=== PATIENT | female | born 1965 | race Caucasian/White ===

== ENCOUNTER 2024-06-11 15:09 | Inpatient (IN) ==
--- NOTE | 2024-06-11 15:56 | XRay Report ---
XR chest 1V portable HISTORY: 59 years-old Female Weakness COMPARISON: Chest radiograph 12/04/2023 TECHNIQUE: AP view of the chest FINDINGS: Cardiac silhouette is enlarged. Right IJ Bkzdkc-e-Memz catheter. Mild right hemidiaphragmatic elevati on. No pneumothorax, large pleural effusion or overt pulmonary edema. Right hilar mass redemonstrated . Bones appear grossly intact. IMPRESSION: 1. No acute processes of the chest. 2. Right hilar mass redemonstrated. ACT 112: Negative or not required by law. The above report was generated using voice recognition software. It may contain grammatical, syntax o r spelling errors. Electronically signed by: Ari Black M.D. 06/11/2024 3:54 PM
[2024-06-11 15:57] LABS: Basophils # (auto) 0.01 K/uL (0.00-0.20); Basophils % (auto) 0.1 %; Hematocrit (blood only) 41.5 % (37.0-47.0); Hemoglobin 14.5 g/dl (12.0-16.0); Immature Granulocytes # (auto) 0.03 K/uL (0.01-0.20); Immature Granulocytes % (auto) 0.3 %; Lymphocytes # (auto) 1.63 K/uL (1.20-3.40); Lymphocytes % (auto) 16.5 %; Mean Corpuscular Hemoglobin 31.4 pg (25.0-34.0); Mean Corpuscular Hgb Conc 34.9 g/dL (32.0-36.0); Mean Corpuscular Volume 89.8 fL (80.0-100.0); Mean Platelet Volume 8.7 fL (9.4-12.4); Monocytes # (auto) 0.39 K/uL (0.11-0.59); Neutrophils # (auto) 7.79 K/uL (1.40-6.50); Neutrophils % (auto) 79.1 %; Platelet Count 233 K/uL (130-400); RDW Coefficient of Variation 13.6 % (11.5-14.5); RDW Standard Deviation 44.6 fL (36.4-46.3); Red Blood Count 4.62 M/uL (4.20-5.40); White Blood Count 9.85 K/ul (4.8-10.8)
--- NOTE | 2024-06-11 16:06 | Emergency Department Note ---
Impression & Plan Generalized weakness, Acute hypokalemia, Hypomagnesemia, Acute hyponatremia, Acute UTI (urinary tract infection), Acute urinary retention, Elevated procalcitonin ED Provider Note HISTORY OF PRESENT ILLNESS: Patient is a 59-year-old female presenting with generalized weakness. Patient reports that she has been having progressively worsening weakness of her bilateral lower extremities for the last week. Reports that 3 days ago she started having multiple episodes of vomiting. States that she has had poor oral intake in the last 72 hours. Denies any measured fevers, but does report that she has had night sweats in the last 3 days. Denies any abdominal pain. Denies any dysuria or hematuria. She had a follow-up appointment with her first coat sander and had some basic blood work done and was referred to the emergency department due to multiple electrolyte abnormalities. Patient denies any chest pain or shortness of breath. She reports feeling very rundown and weak. Denies any recent falls or head injuries. Denies any chiropractic manipulation of her neck. Denies any numbness or tingling down her legs. Reports that she has been so weak she has been unable to stand up and get around. She denies any bowel or bladder incontinence. ROS: as above PHYSICAL EXAM: Constitutional: Patient appears in no acute distress. HENT: Head: Normocephalic and atraumatic. Eyes: EOMI, PERRL Mouth/Throat: Mucous membranes moist. Neck: Trachea midline. Neck supple. Cardiovascular: Tachycardic with regular rhythm. No murmurs, rubs or gallops. Intact distal pulses. Pulmonary/Chest: No respiratory distress. Breath sounds clear and equal bilaterally. No wheezes or rales. No chest wall tenderness to palpation. Abdominal: Abdomen soft, no tenderness, rebound or guarding. Musculoskeletal: No edema, tenderness or deformity noted. Skin: Warm and dry. No rash, erythema, pallor or cyanosis Psychiatric: Appropriate mood and affect for situation. Neurological: Alert and keenly responsive. CN II-XII grossly intact. Patient is able to straight leg raise bilaterally but after lifting her legs shortly places them back on the bed saying that she is weak and fatigued. Sensation intact to light touch about the nerve distributions of the legs. MDM: - Vitals signs showed hypertension and tachycardia - History obtained via patient. History as above. - Chronic conditions affecting care: HLD; small cell lung cancer; hypothyroidism; rheumatoid arthritis - Differential diagnoses include, but are not limited to: pneumonia; viral syndrome; UTI; small bowel obstruction; electrolyte abnormality - Order placed for continuous cardiac monitoring. At this time, monitor showed rate of 98 bpm with normal sinus rhythm, per my interpretation. - External medical records reviewed. [facility] nursing note dated 06/11/2024 was reviewed. Patient reportedly presented for an education visit. However, when patient was being brought back to an exam room she stated that her legs were too weak and she required to nursing assist to get out of the waiting room chair. She has been using her father's walker to ambulate per their documentation. She was noted to be hypertensive with blood pressure readings of 188/115 and 182/104. She had a sodium of 127 and potassium 3.1. They were referred to the emergency department for further evaluation. - EKG interpreted by myself showed normal sinus rhythm. Rate 98 bpm. QT 358. No acute ischemic changes. - Laboratory workup interpreted by myself showed normal WBC; normal PT/INR; hyponatremia (Na 126); hypokalemia (K 2.9); hypercalcemia (Ca 10.4); hypomagnesemia (Mg 1.5); elevated procalcitonin (0.98); normal lactate; elevated TSH (5.788) - CXR negative for pneumonia, per my interpretation. Noted to have a right hilar mass. - Blood cultures obtained - UA showed evidence of infection. Patient given 2 g IV Rocephin. - Viral respiratory panel negative - CT abdomen/pelvis with IV contrast multiple indeterminate hepatic lesions. Also noted to have multiple areas of infectious bronchiolitis. Urinary bladder is dilated with mild prominence of the ureters and renal pelves - Patient given 1L NS. Given a total of 30 mEq IV potassium for electrolyte replacement. Given 1g IV magnesium - Patient noted to have a significantly distended bladder on CT scan. She has bladder scanned for around 900 by nursing staff. Patient ambulated into the bathroom without any assistive devices. She voided about 150 cc on repeat bladder scan showing around low 800 cc of urine. Discussed urinary retention with the patient and recommended placing a Zavala catheter, to which he was agreeable. - Unclear etiology for patient's urinary retention at this time. However, may be secondary to her acute UTI. She did ambulate in the emergency department without any profound gait instability. Her CT imaging did not mention any acute spinal abnormality, but further imaging may be warranted on the inpatient setting. - Discussion was had with case technician about patient's case and need for admission - Hospitalist, Dr. Dallas, consulted for admission - Patient admitted to [facility] Pediatric Hospitalist service for further evaluation and management. I have personally spent 34 minutes of critical care time in the direct management of this patient. This includes bedside care, interpretation of diagnostic studies, and testing, discussion with consultants, patient, and family members, and other required patient management activities. This 34 minutes is in excess of all separately billable procedures. ASSESSMENT AND PLAN: Diagnosis: generalized weakness; acute hypokalemia; hypomagnesemia; acute hyponatremia; acute UTI; acute urinary retention; elevated procalcitonin Plan: Admit Past Med/Surg History Problem List (Updated 06/11/24 @ 20:02 by Puja Doran MD) Elevated procalcitonin (Acute) Acute urinary retention (Acute) Acute UTI (urinary tract infection) (Acute) Acute hyponatremia (Acute) Hypomagnesemia (Acute) Acute hypokalemia (Acute) Generalized weakness (Acute) Small cell lung cancer, right upper lobe (Chronic) Mixed dyslipidemia Medical History (Updated 06/11/24 @ 20:02 by Puja Doran MD) Kidney stone Prediabetes Black hairy tongue Lung cancer Diagnosed 12/04/23;Small cell lung cancer, right Thyroid goiter Ovarian cyst Hypothyroidism Rheumatoid arthritis Allergic rhinitis Surgical History (Updated 12/23/23 @ 10:13 by Alise Hunter, NORM) Status post bronchoscopy 12/04/23 Hx of cholecystectomy History of surgery Excision left breast lesion - benign Family History (Updated 12/23/23 @ 13:23 by Alise Hunter, RN) Mother , 69yo Stroke Hypertension Diabetes Father Pacemaker Hypertension Diabetes Brother Diabetes Hypertension Son MVA (motor vehicle accident) Social History (Updated 12/23/23 @ 13:25 by Alise Hunter, NORM) Smoking Status: Current every day smoker Tobacco Type: E-cigarettes / Vaping Cigarettes Per Day: 1 PPD x 40yrs; Second Hand Exposure: No; Hx Alcohol Use: No Hx Substance Use: No Preferred Language: Namibian Communication Ability: Effective Visual Impairment: No Limitations Hearing Ability: Normal Assessment Nurse Required: No Beliefs That Will Affect Care: None marital status: Current Living Situation: Spouse current occupational status: employed 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 How many Children do You have: 0 Feels Safe at Home: Yes Diet: regular caffeine: Yes (3 cups/day) during the past year weight has: remained stable Allergies Allergies Allergy/AdvReac Type Severity Reaction Status Date / Time Sulfa (Sulfonamide Allergy Mild Nausea Verified 12/23/23 10:19 Antibiotics) codeine AdvReac sleepy Verified 12/23/23 10:19 PCN Allergy Severe Hives/swell Uncoded 12/23/23 10:19 ing Clindamycin Allergy Intermediate Hives Uncoded 12/23/23 10:19 Home Meds Home Medications Medication Instructions Recorded Confirmed azelastine 137 mcg (0.1 %) nasal 1 spray intranasal BID 12/23/23 12/23/23 spray levothyroxine 100 mcg capsule 100 mcg PO DAILY 12/23/23 12/23/23 multivitamin 1 tab PO DAILY 12/23/23 12/23/23 omega-3 fatty acids 1,000 mg 1,000 mg PO DAILY 12/23/23 12/23/23 capsule prochlorperazine maleate 10 mg 10 mg PO Q6H PRN 12/23/23 12/23/23 tablet (Compazine) triamcinolone acetonide 55 mcg 1 spray intranasal DAILY 12/23/23 12/23/23 nasal spray aerosol (Nasacort Allergy) Results & Data (ED) Vital Signs Vital Signs - 24 hr 06/11/24 15:18 06/11/24 16:42 06/11/24 16:47 Temperature 36.5 C Temperature Source Axillary Pulse Rate 100 H 92 H 90 Pulse Rate [Apical] Pulse Rhythm Regular Pulse Rhythm [Apical] Pulse Strength [Apical] Respiratory Rate 17 18 Respiratory Effort / Characteristics Non-Labored Spontaneous Respiratory Depth Normal Respiratory Pattern Blood Pressure 195/104 H Blood Pressure [Left Arm] Blood Pressure Mean 134 Blood Pressure Mean [Left Arm] Blood Pressure Position Sitting Blood Pressure Position [Left Arm] Pulse Oximetry 97 97 Oxygen Delivery Method Room Air Room Air Sepsis Recent Fever Within 48 Hours No Sepsis New/Unexplained Change in Mental Status N/A Sepsis Action Taken by Nursing No Action Required 06/11/24 16:47 06/11/24 19:12 06/11/24 19:13 Temperature Temperature Source Pulse Rate Pulse Rate [Apical] 92 H 98 H Pulse Rhythm Pulse Rhythm [Apical] Regular Pulse Strength [Apical] Normal Normal Respiratory Rate 18 17 Respiratory Effort / Characteristics Non-Labored Spontaneous Non-Labored Respiratory Depth Normal Normal Respiratory Pattern Regular Regular Blood Pressure Blood Pressure [Left Arm] 213/105 H 179/106 H Blood Pressure Mean Blood Pressure Mean [Left Arm] 141 130 Blood Pressure Position Blood Pressure Position [Left Arm] Sitting Pulse Oximetry 97 92 92 Oxygen Delivery Method Room Air Room Air Room Air Sepsis Recent Fever Within 48 Hours Sepsis New/Unexplained Change in Mental Status Sepsis Action Taken by Nursing Laboratory Data 06/11/24 Unknown 06/11/24 Unknown Lab Results 06/11/24 06/11/24 06/11/24 Range/Units 16:13 17:07 Unknown WBC 9.85 (4.8-10.8) K/ul RBC 4.62 (4.20-5.40) M/uL Hgb 14.5 (12.0-16.0) g/dl Hct 41.5 (37.0-47.0) % MCV 89.8 (80.0-100.0) fL MCH 31.4 (25.0-34.0) pg MCHC 34.9 (32.0-36.0) g/dL RDW Std Deviation 44.6 (36.4-46.3) fL RDW Coeff of Fifi 13.6 (11.5-14.5) % Plt Count 233 (130-400) K/uL MPV 8.7 L (9.4-12.4) fL Immature Gran % (Auto) 0.3 % Neut % (Auto) 79.1 % Lymph % (Auto) 16.5 % Jackson % (Auto) 4.0 % Eos % (Auto) 0.0 % Baso % (Auto) 0.1 % Neut # (Auto) 7.79 H (1.40-6.50) K/uL Lymph # (Auto) 1.63 (1.20-3.40) K/uL Jackson # (Auto) 0.39 (0.11-0.59) K/uL Eos # (Auto) 0.00 (0.00-0.50) K/uL Baso # (Auto) 0.01 (0.00-0.20) K/uL Immature Gran # (Auto) 0.03 (0.01-0.20) K/uL PT 10.7 (9.0-12.0) Seconds INR 1.0 (0.9-1.1) APTT 22 (21-31) Seconds PTT Ratio 0.8 Sodium 126 L (136-145) mmol/L Potassium 2.9 L (3.5-5.1) mmol/L Chloride 85 L (98-107) mmol/L Carbon Dioxide 30 (21-32) mmol/L Anion Gap 11 (3-11) BUN 13 (6-23) mg/dl Creatinine 0.70 (0.6-1.2) mg/dl Est Cr Clr Drug Dosing Not Reportable eGFR 100.81 BUN/Creatinine Ratio 18.6 (10-20) Glucose 169 H (70-99(Fasting)) mg/dl Lactate 1.3 1.2 (0.4-2.0) mmol/L Calcium 10.4 H (8.6-10.3) mg/dl Magnesium 1.5 L (1.7-2.4) mg/dl Total Bilirubin 0.7 (0.2-1.0) mg/dl AST 31 (13-39) U/L ALT 34 (7-52) U/L Alkaline Phosphatase 77 (34-104) U/L Troponin I High Sens 12.4 (0-14) pg/ml Total Protein 8.7 H (6.0-8.3) gm/dl Albumin 4.6 (3.4-5.0) gm/dl Globulin 4.1 H (2.5-4.0) gm/dl Albumin/Globulin Ratio 1.1 (0.9-2) Procalcitonin 0.98 H (0-0.5) ng/ml TSH 5.788 H (0.300-4.500) uIu/ml Urine Color Yellow Urine Appearance Turbid A (Clear) Urine pH 7.5 (4.5-7.5) Ur Specific [place] 1.013 (1.000-1.030) Urine Protein 2+ H (Negative) Urine Glucose (UA) Negative (Negative) Urine Ketones 1+ H (Negative) Urine Blood Trace H (Negative) Urine Nitrite Negative (Negative) Urine Bilirubin Negative (Negative) Urine Urobilinogen Negative (Negative) Ur Leukocyte Esterase 2+ H (Negative) Urine WBC (Auto) >50 H (0-5) /hpf Urine RBC (Auto) 6-10 H (0-2) /hpf U Hyaline Cast (Auto) 3-5 H (0-2) /lpf U Epithel Cells (Auto) 11-20 H (0-2) /hpf Urine Bacteria (Auto) None Seen (None Seen) Amorphous Sediment Present A (None Prsent) Adenovirus (PCR) Not Detected (NotDetected) B. pertussis DNA (PCR) Not Detected (NotDetected) B.parapertussis DNA PCR Not Detected (NotDetected) C. pneumoniae DNA (PCR) Not Detected (NotDetected) Coronavirus OC43 (PCR) Not Detected (NotDetected) Coronavirus HKU1 (PCR) Not Detected (NotDetected) Coronavirus 229E (PCR) Not Detected (NotDetected) SARS-CoV-2 (PCR) Not Detected (NotDetected) Coronavirus NL63 (PCR) Not Detected (NotDetected) Human Metapneumovir PCR Not Detected (NotDetected) Influenza Type A (PCR) Not Detected (NotDetected) Influenza Type B (PCR) Not Detected (NotDetected) M. pneumoniae (PCR) Not Detected (NotDetected) Parainfluenza 1 (PCR) Not Detected (NotDetected) Parainfluenza 2 (PCR) Not Detected (NotDetected) Parainfluenza 3 (PCR) Not Detected (NotDetected) Parainfluenza 4 (PCR) Not Detected (NotDetected) RSV (PCR) Not Detected (NotDetected) Entero/Rhino (PCR) Not Detected (NotDetected) Administered Medications Discontinued Medications Sodium Chloride (Nss) 1,000 mls @ 999 mls/hr IV .Q1H1M ONE Stop: 06/11/24 17:27 Last Admin: 06/11/24 16:43 Dose: 999 mls/hr Documented By: SCARLETT Potassium Chloride (K Martin / Wtr) 10 meq in 100 mls @ 100 mls/hr IV Q1H NIDHI Stop: 06/11/24 19:29 Last Admin: 06/11/24 18:35 Dose: 100 mls/hr Documented By: Infusion: 06/11/24 17:51 Dose: Infused Documented By: Admin: 06/11/24 16:51 Dose: 100 mls/hr Documented By: SCARLETT Ceftriaxone Sodium (Rocephin) 2,000 mg in 50 mls @ 100 mls/hr IV NOW STA Stop: 06/11/24 16:56 Last Infusion: 06/11/24 17:32 Dose: Infused Documented By: Admin: 06/11/24 16:44 Dose: 100 mls/hr Documented By: SCARLETT Magnesium Sulfate/Dextrose (Magnesium Sulfate / D5w) 1 gm in 100 mls @ 100 mls/hr IV NOW STA Stop: 06/11/24 17:38 Last Infusion: 06/11/24 19:07 Dose: Infused Documented By: Admin: 06/11/24 17:45 Dose: 100 mls/hr Documented By: YAIR Ioversol (Optiray 320 100ml) 94 ml IV ONCE ONE Stop: 06/11/24 17:35 Last Admin: 06/11/24 17:34 Dose: 94 ml Documented By: EDK Imaging Data Radiologist's Impression: Chest X-Ray 06/11/24 15:20 XR chest 1V portable HISTORY: 59 years-old Female Weakness COMPARISON: Chest radiograph 12/04/2023 TECHNIQUE: AP view of the chest FINDINGS: Cardiac silhouette is enlarged. Right IJ Owrrup-z-Kgic catheter. Mild right hemidiaphragmatic elevation. No pneumothorax, large pleural effusion or overt pulmonary edema. Right hilar mass redemonstrated. Bones appear grossly intact. IMPRESSION: 1. No acute processes of the chest. 2. Right hilar mass redemonstrated. ACT 112: Negative or not required by law. The above report was generated using voice recognition software. It may contain grammatical, syntax or spelling errors. Electronically signed by: Ari Black M.D. 06/11/2024 3:54 PM Abdomen/Pelvis CT 06/11/24 16:39 EXAMINATION: CT of the abdomen and pelvis performed after the administration of IV contrast TECHNIQUE: Helical CT images from the lung bases through the symphysis pubis were obtained with contrast. Coronal and sagittal reformatted images were generated at a workstation for further assessment. Dose reduction techniques were achieved by using automatic exposure control and/or adjustment of mA and/or kV according to patient size and/or use of iterative reconstruction technique. COMPARISON: None HISTORY: Abdominal pain. Vomiting FINDINGS: Lower chest: Small area of tree-in-bud nodules within the medial aspect of the right middle lobe, as well as centrally within the left lower lobe. No consolidation. No pleural effusion or pneumothorax. Liver: Hepatic steatosis. Scattered throughout the liver, are a few ill-defined, low-density lesions, which demonstrate surrounding enhancement and rim enhancement. In the medial right hepatic lobe, axial image 66, is a 13 mm lesion. Anteriorly in the right hepatic lobe on axial image 60 is a 10 mm lesion. In the posterior subcapsular right hepatic lobe, axial image 66, is a 13 mm lesion surrounded by subtle confluent enhancement. Portal veins appear patent. Gallbladder: Cholecystectomy. Spleen: Normal size. Pancreas: No suspicious pancreatic lesions. The pancreatic duct is not dilated. Adrenal glands: No adrenal nodules. Kidneys: No renal or ureteral stones. Mild prominence of the ureters and renal pelves bilaterally, related to significant dilation of the bladder. Bladder / Pelvic organs: Urinary bladder is significantly dilated, otherwise unremarkable. The uterus is present. No Onexila mass.. Bowel: No bowel obstruction. No abnormal bowel wall thickening. The appendix is unremarkable. Lymph nodes: No retroperitoneal, mesenteric, or pelvic lymphadenopathy. Peritoneum / Retroperitoneum: No free fluid or air within the abdomen. Vessels: No infrarenal aortic aneurysm. Bones and soft tissues: No suspicious lesion in the bones. IMPRESSION: Scattered, small indeterminate hepatic lesions, are low attenuating, and demonstrating rim enhancement, with benign and malignant etiologies considered, including metastatic disease if there is a history of a primary cancer, versus benign lesion such as hemangioma, FNH, adenoma, etc. Recommended follow-up MRI with IV contrast. Multifocal areas of infectious bronchiolitis in the partially visualized right middle lobe and left lower lobe of the lungs. The urinary bladder is significantly dilated, resulting in mild prominence of the ureters and renal pelves. No other acute findings. Electronically signed by Boogie Davenport 06-11-2024 6:19 PM Discharge Plan Visit Data Chief Complaint: Abnormal Labs/Diagnostic Testing Stated Complaint: ABN LABS/BLOOD WORK ED Provider: Puja Doran Discharge Problem: Generalized weakness, Acute hypokalemia, Hypomagnesemia, Acute hyponatremia, Acute UTI (urinary tract infection), Acute urinary retention, Elevated procalcitonin Forms Stand Alone Forms: My [facility] Prescriptions Prescriptions: No Action multivitamin Tablet 1 tab PO DAILY triamcinolone acetonide [Nasacort Allergy] 55 mcg aerosol,spray 1 spray intranasal DAILY Rx Instructions: administer into each nostril levothyroxine 100 mcg capsule 100 mcg PO DAILY azelastine 137 mcg (0.1 %) spray,non-aerosol 1 spray intranasal BID Rx Instructions: administer into each nostril omega-3 fatty acids 1,000 mg capsule 1,000 mg PO DAILY prochlorperazine maleate [Compazine] 10 mg tablet 10 mg PO Q6H PRN Referrals Referrals: Edel Clay MD [Primary Care Provider] -
[2024-06-11 16:13] LABS: Alanine Aminotransferase 34 U/L (7-52); Albumin Globulin Ratio 1.1 (0.9-2); Albumin Level 4.6 gm/dl (3.4-5.0); Alkaline Phosphatase 77 U/L (34-104); Anion Gap 11 (3-11); Aspartate Aminotransferase 31 U/L (13-39); BUN Creatinine Ratio 18.6 (10-20); Bilirubin,Total 0.7 mg/dl (0.2-1.0); Blood Urea Nitrogen 13 mg/dl (6-23); Calcium 10.4 mg/dl (8.6-10.3); Carbon Dioxide 30 mmol/L (21-32); Chloride 85 mmol/L (98-107); Globulin 4.1 gm/dl (2.5-4.0); Glucose 169 mg/dl (70-99(Fasting)); Magnesium 1.5 mg/dl (1.7-2.4); Potassium 2.9 mmol/L (3.5-5.1); Sodium 126 mmol/L (136-145); Total Protein 8.7 gm/dl (6.0-8.3)
[2024-06-11 16:19] LABS: Troponin I High Sensitivity 12.4 pg/ml (0-14)
[2024-06-11 16:23] LABS: Partial Thromboplastin Ratio 0.8; Partial Thromboplastin Time 22 Seconds (21-31); Prothrombin Time 10.7 Seconds (9.0-12.0)
[2024-06-11 16:28] LABS: Thyroid Stimulating Hormone 5.788 uIu/ml (0.300-4.500)
[2024-06-11 16:35] LABS: Amorphous Sediment Urine Present (None Prsent); Appearance Urine Turbid (Clear); Bacteria Urine Automated None Seen (None Seen); Bilirubin Urine Negative (Negative); Blood Urine Trace (Negative); Color Urine Yellow; Glucose Urine UA Negative (Negative); Ketones Urine 1+ (Negative); Leukocyte Esterase Urine 2+ (Negative); Nitrite Urine Negative (Negative); Protein Urine 2+ (Negative); Specific Gravity Urine 1.013 (1.000-1.030); Urobilinogen Urine Negative (Negative); WBC Urine Automated >50 /hpf (0-5); pH Urine 7.5 (4.5-7.5)
--- NOTE | 2024-06-11 16:41 | Electrocardiogram Report ---
Test Reason : Blood Pressure : */* mmHG Vent. Rate : 98 BPM Atrial Rate : 98 BPM P-R Int : 156 ms QRS Dur : 94 ms QT Int : 358 ms P-R-T Axes : 42 47 15 degrees QTcB Int : 457 ms Normal sinus rhythm Possible Left atrial enlargement Nonspecific ST and T wave abnormality Abnormal ECG No previous ECGs available Confirmed by Hakan Laird ([id number]) on 06/11/2024 4:41:08 PM Referred By: Confirmed By: Hakan Laird
[2024-06-11 16:42] LABS: Adenovirus PCR Not Detected (NotDetected); Bordetella parapertussis PCR Not Detected (NotDetected); Bordetella pertussis PCR Not Detected (NotDetected); Chlamydia pneumoniae PCR Not Detected (NotDetected); Coronavirus 229E PCR Not Detected (NotDetected); Coronavirus CoV-2 (COVID19)PCR Not Detected (NotDetected); Coronavirus HKU1 PCR Not Detected (NotDetected); Coronavirus NL63 PCR Not Detected (NotDetected); Coronavirus OC43PCR Not Detected (NotDetected); Human Metapneumovirus PCR Not Detected (NotDetected); Influenza A PCR Not Detected (NotDetected); Influenza B PCR Not Detected (NotDetected); Mycoplasma pneumoniae PCR Not Detected (NotDetected); Parainfluenza Virus 1 PCR Not Detected (NotDetected); Parainfluenza Virus 2 PCR Not Detected (NotDetected); Parainfluenza Virus 3 PCR Not Detected (NotDetected); Parainfluenza Virus 4 PCR Not Detected (NotDetected); Respiratory Syncytial VirusPCR Not Detected (NotDetected); Rhinovirus/Enterovirus PCR Not Detected (NotDetected)
[2024-06-11] MEDS: SODIUM CHLORIDE 0.9% 1,000 ML IV ONE (16:43)
[2024-06-11] MEDS: cefTRIAXone SODIUM 2,000 MG/50 ML BAG IV STA (16:44)
[2024-06-11] MEDS: POTASSIUM CHLORIDE / WTR 10 MEQ/100 ML PLCT IV SCH (16:51)
[2024-06-11] MEDS: OPTIRAY 320 100ml IV ONE (17:34)
[2024-06-11] MEDS: MAGNESIUM SULFATE / D5W 1 GM/100 ML BAG IV STA (17:45)
--- NOTE | 2024-06-11 18:20 | CT Scan Report ---
EXAMINATION: CT of the abdomen and pelvis performed after the administration of IV contrast TECHNIQUE: Helical CT images from the lung bases through the symphysis pubis were obtained with contrast. Coronal and sagittal reformatted images were generated at a workstation for further assessment. Dose reduction techniques were achieved by using automatic exposure control and/or adjustment of mA and/or kV according to patient size and/or use of iterative reconstruction technique. COMPARISON: None HISTORY: Abdominal pain. Vomiting FINDINGS: Lower chest: Small area of tree-in-bud nodules within the medial aspect of the right middle lobe, as well as centrally within the left lower lobe. No consolidation. No pleural effusion or pneumothorax. Liver: Hepatic steatosis. Scattered throughout the liver, are a few ill-defined, low-density lesions, which demonstrate surrounding enhancement and rim enhancement. In the medial right hepatic lobe, axial image 66, is a 13 mm lesion. Anteriorly in the right hepatic lobe on axial image 60 is a 10 mm lesion. In the posterior subcapsular right hepatic lobe, axial image 66, is a 13 mm lesion surrounded by subtle confluent enhancement. Portal veins appear patent. Gallbladder: Cholecystectomy. Spleen: Normal size. Pancreas: No suspicious pancreatic lesions. The pancreatic duct is not dilated. Adrenal glands: No adrenal nodules. Kidneys: No renal or ureteral stones. Mild prominence of the ureters and renal pelves bilaterally, related to significant dilation of the bladder. Bladder / Pelvic organs: Urinary bladder is significantly dilated, otherwise unremarkable. The uterus is present. No Onexila mass.. Bowel: No bowel obstruction. No abnormal bowel wall thickening. The appendix is unremarkable. Lymph nodes: No retroperitoneal, mesenteric, or pelvic lymphadenopathy. Peritoneum / Retroperitoneum: No free fluid or air within the abdomen. Vessels: No infrarenal aortic aneurysm. Bones and soft tissues: No suspicious lesion in the bones. IMPRESSION: Scattered, small indeterminate hepatic lesions, are low attenuating, and demonstrating rim enhancement, with benign and malignant etiologies considered, including metastatic disease if there is a history of a primary cancer, versus benign lesion such as hemangioma, FNH, adenoma, etc. Recommended follow-up MRI with IV contrast. Multifocal areas of infectious bronchiolitis in the partially visualized right middle lobe and left lower lobe of the lungs. The urinary bladder is significantly dilated, resulting in mild prominence of the ureters and renal pelves. No other acute findings. Electronically signed by Boogie Davenport 06-11-2024 6:19 PM
[2024-06-11] MEDS ORDERED: POLYETHYLENE (MIRALAX) 17 GM PACK PO PRN (21:16)
[2024-06-11] MEDS ORDERED: ONDANSETRON INJ 2 MG/ML 2 ML VIAL IV PRN (21:16)
[2024-06-11] MEDS ORDERED: MAGNESIUM HYDROXIDE SUSP 30 ML UDC PO PRN (21:16)
[2024-06-11] MEDS: POTASSIUM CHLORIDE CRTAB 20 MEQ TABCR PO SCH (21:41)
[2024-06-11] MEDS: LABETALOL HCL IV 5 MG/ML 20ML IV PRN (21:42)
[2024-06-11] MEDS: MAGNESIUM SULFATE / D5W 1 GM/100 ML BAG IV SCH (21:42)
[2024-06-11] MEDS: SODIUM CHLORIDE 0.9% 1,000 ML IV SCH (21:42)
--- NOTE | 2024-06-11 21:49 | History & Physical Report ---
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 Patient sent from oncology office due to abnormal electrolytes. Admitting CXR negative for acute findings, right hilar mass redemonstrated. Admitting CTAP with metastatic disease to liver. Multifocal areas of infectious bronchiolitis in the partially visualized right middle lobe and left lower lobe of the lungs. Resp viral panel neg. Admitting sodium of 126 and potassium of 2.9 and magnesium of 1.5 Patient received 1 L of NSS in the ED, 1 g of magnesium and 3 bags of potassium. Start on another liter of NSS at 60 mL an hour, encourage p.o. intake, add 2 g of IV magnesium and 80 mEq of p.o. potassium Repeat BMP before midnight and 5 AM in the morning. Replete electrolytes as appropriate. Goal of 6 mmol/l correct in next 24 hours, will sign out to night team to f/u on 12 midnight bmp. Consult nephro if worsening. Possible pneumonia: Admitting procal elevated. Admitting CTAP suggestive of multifocal areas of infectious bronchiolitis in the partially visualized right middle lobe and left lower lobe of the lungs. Continue with Rocephin 06/11, add doxycycline. Add probiotic. 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 Patient received Rocephin in the ED, Antibiotics as above. Follow admitting blood and urine culture. Other chronic medical conditions: Continue with/resume home meds as and when able Rheumatoid arthritis: Patient currently not taking Orencia due to being on chemotherapy. She reports taking 15 mg of prednisone daily. Will add pantoprazole while on high-dose of prednisone.This dose needs to be tapered down slowly/gradually. Hold methotrexate during acute illness. Hypothyroidism: Continue home levothyroxine. Repeat thyroid function test in 6 weeks time. TSH elevated while in hospital. Prediabetes: Monitor blood glucose. A1c in AM. DVT prophylaxis: Lovenox subcu Full code Pt's elizabeth was given a phone call and updated on pt's plan of care. 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 Patient appears very tired and forgetful, history is very difficult to extract though patient seems to be answering questions very appropriately due to her mixing up her current symptoms due to forgetfullness. 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 Patient reports loose stool but denies diarrhea. Patient reports quitting smoking November 2023, smoked 1 packs a day for more than 20 years before that. Denies alcohol use and recreational drug use. Medications reviewed with the patient at bedside. Plan of care discussed with the patient in detail at bedside. Full code Allergies Allergy/AdvReac Type Severity Reaction Status Date / Time Sulfa (Sulfonamide Allergy Mild Nausea Verified 12/23/23 10:19 Antibiotics) codeine AdvReac sleepy Verified 12/23/23 10:19 PCN Allergy Severe Hives/swell Uncoded 12/23/23 10:19 ing Clindamycin Allergy Intermediate Hives Uncoded 12/23/23 10:19 Home Medications Medication Instructions Recorded Confirmed Type levothyroxine 100 mcg capsule 100 mcg PO DAILY 12/23/23 06/11/24 History multivitamin 1 tab PO DAILY 12/23/23 06/11/24 History omega-3 fatty acids 1,000 mg 1,000 mg PO DAILY 12/23/23 06/11/24 History capsule prochlorperazine maleate 10 mg 10 mg PO Q6H PRN Nausea 12/23/23 06/11/24 History tablet (Compazine) folic acid 1 mg tablet 1 mg PO DAILY 06/11/24 06/11/24 History methotrexate sodium 2.5 mg tablet 15 mg PO WK 06/11/24 06/11/24 History Past Med/Surg History Problem List (Updated 06/11/24 @ 20:02 by Puja Doran MD) Elevated procalcitonin (Acute) Acute urinary retention (Acute) Acute UTI (urinary tract infection) (Acute) Acute hyponatremia (Acute) Hypomagnesemia (Acute) Acute hypokalemia (Acute) Generalized weakness (Acute) Small cell lung cancer, right upper lobe (Chronic) Mixed dyslipidemia Medical History (Updated 06/11/24 @ 20:02 by Puja Doran MD) Kidney stone Prediabetes Black hairy tongue Lung cancer Diagnosed 12/04/23;Small cell lung cancer, right Thyroid goiter Ovarian cyst Hypothyroidism Rheumatoid arthritis Allergic rhinitis Surgical History (Updated 12/23/23 @ 10:13 by Alise Hunter, RN) Status post bronchoscopy 12/04/23 Hx of cholecystectomy History of surgery Excision left breast lesion - benign Family History (Updated 12/23/23 @ 13:23 by Alise Hunter, RN) Mother , 69yo Stroke Hypertension Diabetes Father Pacemaker Hypertension Diabetes Brother Diabetes Hypertension Son MVA (motor vehicle accident) Social History (Updated 12/23/23 @ 13:25 by Alise Hunter, RN) Smoking Status: Current every day smoker Tobacco Type: E-cigarettes / Vaping Cigarettes Per Day: 1 PPD x 40yrs; Second Hand Exposure: No; Hx Alcohol Use: No Hx Substance Use: No Preferred Language: Croatian Communication Ability: Effective Visual Impairment: No Limitations Hearing Ability: Normal 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 Physical Exam Physical Exam: GENERAL: Alert and oriented x3. NAD, on RA. Appears tired, weak/frail. HEENT: No pallor, no icterus. Pupils equal, round and reactive to light. Oral mucosa moist. NECK: No JVD, no neck masses. HEART: S1 and S2 heard. Regular rate and rhythm. HR in high 90s. No murmur, no gallop. RESPIRATORY SYSTEM: Normal AP diameter. No accessory muscle use. No wheezing, no crackles. ABDOMEN: Soft, bowel sounds present, nontender, no distention. CENTRAL NERVOUS SYSTEM: No facial droop. Speech is clear. Obeys simple commands. Moves extremities. EXTREMITIES: No edema, no erythema seen. UC w/ vinayak urine in bag noted. Results & Data Results & Data Vital Signs (Past 12 Hours) Vital Signs Temp Pulse Pulse Resp BP BP Pulse Ox 06/11/24 21:00 102 H 17 196/105 H 95 06/11/24 20:13 96 H 06/11/24 19:13 92 06/11/24 19:12 98 H 17 179/106 H 92 06/11/24 16:47 92 H 18 213/105 H 97 06/11/24 16:47 90 18 97 06/11/24 16:42 92 H 06/11/24 15:18 36.5 C 100 H 17 195/104 H 97 O2 Del Method 06/11/24 21:00 Room Air 06/11/24 20:13 06/11/24 19:13 Room Air 06/11/24 19:12 Room Air 06/11/24 16:47 Room Air 06/11/24 16:47 Room Air 06/11/24 16:42 06/11/24 15:18 Room Air
[2024-06-12 00:24] LABS: BUN Creatinine Ratio 12.3 (10-20); Calcium 9.7 mg/dl (8.6-10.3); Creatinine Clr Calc Pharmacy 80.6 ml/min; Potassium 3.2 mmol/L (3.5-5.1)
[2024-06-12] MEDS: LABETALOL HCL IV 5 MG/ML 20ML IV STA (00:32)
[2024-06-12 00:42] LABS: T4 Free Thyroxine 1.12 ng/dl (0.61-1.60)
[2024-06-12] MEDS: DOXYCYCLINE HYCLATE 100 MG CAP PO SCH (00:56)
[2024-06-12] MEDS: hydrALAZINE HCL 20 MG/ML VIAL IV STA (01:51)
--- OUTSIDE RECORDS SUMMARY | 2024-06-12 02:14 | External Medical Summary ---
Author Name Unknown Address Unknown Organization [id number]:[facility] [place] [address] Laboratory Report Ordering Provider Test Date Status JUAQUIN JOHNSON 06/11/2024 13:36:56 Final Observation Date Value Abnormality Reference (Units ) Status WBC, Total 06/11/2024 13:36:56 10.32 4.00-10.8 0 (K/uL) Final RBC 06/11/2024 13:36:56 4.20 3.85-5.15 (M/uL) Final Hemoglobin 06/11/2024 13:36:56 13.6 12.0-15.3 (g/dL) Final HCT 06/11/2024 13:36:56 39.3 36.0-45.2 (%) Final MCV 06/11/2024 13:36:56 93.6 81.5-97.5 (fL) Final MCH 06/11/2024 13:36:56 32.4 27.0-34.0 (pg) Final MCHC 06/11/2024 13:36:56 34.6 32.0-36.0 (g/dL) Final RDW 06/11/2024 13:36:56 13.7 11.5-15.5 (%) Final Platelets 06/11/2024 13:36:56 232 140-400 (K /uL) Final MPV 06/11/2024 13:36:56 8.4 6.6-11.1 ( fL) Final Performing Location [facility] [place] [address]
--- OUTSIDE RECORDS SUMMARY | 2024-06-12 02:15 | External Medical Summary | Summary of Care ---
Author Name Unknown Organization [facility] Address [address] [place] [address] Phone [phone] Care Team Providers Care Marine Cargo Surveyor Name Role Phone Edel Clay MD Primary Care Provide r Reason for Visit * Reason Comments Chemotherapy C7 D8 Tecentriq * Episode Based Medications (Routine) - Authorized Specialty Diagnoses / Procedures Referred By Contac t Referred To Contact Diagnoses Encounter for antineoplastic chemotherapy Cancer, metastatic to bone (HCC) Metastatic adenocarcinoma to liver (HCC) Small cell lung cancer, right (HCC) Procedures CT CARBOPLATIN INJECTION CT FOSAPREPITANT INJECTION [address] ETOPOSIDE [address] INJ, ATEZOLIZUMAB,[address] INJECTION, Monica Anderson MD Hematology/Oncology Treatment, [address] [address] Phone: tel: fax: Referral ID Status Reason Start Date Expiration Date V isits Requested Visits Authorized [id number] Authorized 12/17/2023 06/13/2024 [id number] Encounter Details Date Type Department Care Team (Latest Contact Info) Description 05/20/2024 1:00 PM EST Hem/Onc Treatment Hematology/Oncolog y Treatment, [address] [address] [place], Chair 5 Hem Onc [address] [place] [address] Encounter for antineoplastic chemotherapy*; Cancer, metastatic to bone (HCC); Metastatic adenocarcinoma to liver (HCC); Small cell lung cancer, right (HCC) Allergies Active Allergy Reactions Criticality Noted Date Comments Clindamycin Hives 08/26/2014 Codeine 10/25/2011 "Stupor", drowsy Other Allergy (See Comments) 024 Perfumes, hairspray, candles, etc. Sinus infections, headaches, very sensitive. Penicillins 01/30/2006 Hives ans swelling Sulfa Antibiotics 06/29/2010 Sick to her stomach documented as of this encounter (statuses as of 05/28/2024) Medications OMEGA-3 FATTY ACIDS 1000 MG PO CAPS 0 07/23/19 07 Active Orencia 125 MG/ML Subcutaneous Solution Prefilled Syringe (Abatacept)Indicat ions:Rheumatoid arthritis involving multiple sites with positive rheumatoid factor ([facility]) INJECT 125 MG ( ONE SYRINGE ) UNDER THE SKIN ONCE A WEEK 4 mL 11 12/26/19 23 Active Additional Information Patient not taking.Reported on 05/14/2024 Levothyroxine Sodium 100 MCG Oral Tablet (Levoxyl)Indicatio ns:Acquired hypothyroidism Take 1 Tablet by mouth daily first thing in the morning. (at least 30 min prior to breakfast or other meds) 90 Tablet 3 08/05/19 24 Active Magic Swizzle (Lidocaine-Benadry l-Maalox) oral solution Swish and spit 15 mL in the morning and 15 mL before bedtime. 120 mL 1 09/05/19 24 Active Multivitamins Oral Capsule MULTIVITAMINS ORAL CAPSULE Active Triamcinolone Acetonide 55 MCG/ACT Nasal Aerosol (Nasacort Allergy 24HR) Active Ventolin HFA 108 (90 Base) MCG/ACT Inhalation Aerosol Solution Inhale 2 Puffs by mouth every 4 hours as needed for Shortness of Breath. 18 g 11 12/04/19 24 Active Prochlorperazine Maleate 10 MG Oral Tablet (Compazine)Indicat ions:Encounter for antineoplastic chemotherapy,Cance r, metastatic to bone (HCC),Metastatic adenocarcinoma to liver (HCC),Small cell lung cancer, right (HCC) Take 1 Tablet by mouth every 6 hours as needed for Nausea. 30 Tablet 5 12/19/19 24 Active Lidocaine-Prilocai ne 2.5-2.5 % External Cream (Emla)Indications: Small cell lung cancer, right (HCC),Metastatic adenocarcinoma to liver (HCC),Cancer, metastatic to bone (HCC) APPLY TO SKIN OVER MEDIPORT & COVER 1HR PRIOR TO ACCESSING. 30 g 1 12/19/19 24 Active oxyCODONE-Acetamin ophen 5-325 MG/5ML Oral Solution (Roxicet) Take by mouth every 4 hours as needed. Active dexAMETHasone 4 MG Oral Tablet (Decadron)Indicati ons:Encounter for antineoplastic chemotherapy,Cance r, metastatic to bone (HCC),Metastatic adenocarcinoma to liver (HCC),Small cell lung cancer, right (HCC) Take 2 Tablets by mouth in the morning. With food on days 2, 3, and 4 of chemo.. 12 Tablet 03/05/20 24 Active OLANZapine 10 MG Oral Tablet (zyPREXA)Indicaelsieo ns:Encounter for antineoplastic chemotherapy,Cance r, metastatic to bone (HCC),Metastatic adenocarcinoma to liver (HCC),Small cell lung cancer, right (HCC) Take 1 Tablet by mouth at bedtime. On days 1, 2, 3, and 4 of chemo. 8 Tablet 03/05/20 24 Active Azelastine HCl 137 MCG/SPRAY Nasal SolutionIndication s:Rhinitis, nonallergic SPRAY 2 SPRAYS INTO EACH NOSTRIL IN THE MORNING AND BEFORE BEDTIME 90 mL 3 04/06/20 24 Active LORazepam 0.5 MG Oral Tablet (Ativan)Indication s:Small cell lung cancer, right (HCC),Anxiety,Alycia strophobia Take 1 Tablet by mouth every 8 hours as needed for Anxiety. 60 Tablet 04/05/20 24 Active predniSONE 5 MG Oral Tablet (Deltasone) Take 1 to 2 tabs a day as needed for RA flare 60 Tablet 2 04/13/20 24 Active Folic Acid 1 MG Oral TabletIndications: Rheumatoid arthritis involving multiple sites with positive rheumatoid factor (HCC) Take 1 Tablet by mouth in the morning. 90 Tablet 1 05/03/20 24 Active Methotrexate Sodium 2.5 MG Oral Tablet TAKE 6 TABLETS BY MOUTH ONE TIME PER WEEK 78 Tablet 1 05/03/20 24 Active Hospital, Clinic, or Other Facility Administered Medication Ordered Dose Route Frequency Start Date End Date Status Albuterol Sulfate (Proventil) (2.5 MG/3ML) 0.083% inhalation solution 2.5 mgIndications:Mass of right lung 2.5 mg NEBULIZER PRN 12/10/2023 Active Albuterol Sulfate (Proventil) (5 MG/ML) 0.5% *conc* inhalation solution 2.5 mgIndications:Mass of right lung 2.5 mg NEBULIZER PRN 12/10/2023 Active documented as of this encounter (statuses as of 05/28/2024) Active Problems Problem Noted Date Diagnosed Date Metastatic adenocarcinoma to liver 12/16/2023 Cancer, metastatic to bone 12/16/2023 Encounter for antineoplastic chemotherapy 2023 Small cell lung cancer, right 12/10/2023 Overview (12/10/2023): EBUS 12/04/2023 Positive PET scan with multiple areas of high FDG uptake Prediabetes 08/18/2023 Overview: Per Prediabetes protocol Obesity, Class I, BMI 30.0-34.9 (see actual BMI) 08/01/2021 Rheumatoid arthritis involvi ng multiple sites with positive rheumatoid factor 03/07/2017 Rhinitis, nonallergic 03/03/2017 Dysfunction of left eustachian tube 03/03/2017 Black hairy tongue 09/24/2016 Hypertrophy of both inferior nasal turbinates Encounter for long-term (current) use of medicat ions 08/16/2016 Ovarian cyst 11/22/2011 Dyslipidemia, goal LDL below 130 07/31/2009 Acquired hypothyroidism Tobacco use disorder Family history of diabetes mellitus documented as of this encounter (statuses as of 05/28/2024) Resolved Problems Problem Noted Date Diagnosed Date Resolved Date Chronic rhinitis 09/24/2016 03/03/2017 Recurrent acute sinusitis 09/24/2016 Anxiety state 09/08/2012 06/01/2019 Calculus of gallbladder with out mention of cholecystitis or obstruction 11/22/2011 06/01/2019 Overweight (BMI 25.0-29.9) 08/07/2009 1 07/09/2017 Overview (08/07/2009): Per Obesity Taxonomy Dyslipidemia, goal to be determined 04/25/2009 07/31/2009 Overview (04/25/2009): Per Lipid Taxonomy. chol 192, hdl 26, trig 403 Thyroiditis 07/18/2008 06/01/2019 Overview (07/31/2009): thyroglobulin antibody >3000 [id number] 08/19/200608/10 Overview (08/25/2009): Renamed Per Clinical Trials Billing Project. Pt is a participant in the [facility] (Consortium of Rheumatology Researchers of [place]) national data collection study. For further information please call Dr Temo Castaneda or Kim Ríos, RN, CCRC at [phone] [facility] RESEARCH OTHER*[id number] 08/19/2006 11/06/2009 Overview (08/25/2009): Renamed Per Clinical Trials Billing Project. Pt is a participant in the [facility] (Consortium of Rheumatology Researchers of [place]) national data collection study. For further information please call Dr Temo Castaneda or Kim Ríos, RN, CCRC at [phone] Arthritis, rheumatoid 07/01/20062016 Abnormal blood chemistry 05/02/2006 Overview (05/02/2006): positive rheumatoid factor. Metabolic syndrome 04/29/2006 0 Overview (05/02/2006): insulin level 16 ADVANCE DIRECTIVE INFORMATION 02/25/2006 03/15/2024 Overview (02/25/2006): No, Advance Directive brochure offered , patient declined. Mixed dyslipidemia 02/06/2006 9 Overview (04/25/2009): Per Lipid Taxonomy. chol 192, hdl 26, trig 403 Allergic rhinitis due to pollen 01/30/2006 03/03/2017 Obesity, BMI not known 08/07 Overview (08/07/2009): Per Obesity Taxonomy Denture irritation 0 documented as of this encounter (statuses as of 05/28/2024) Immunizations Name Administration Dates Next Due COVID-19 mRNA, LNP-s, No Pre serve, 2-Dose Series (Moderna) 12/27/2020,06/29/2020,06/01/2020 COVID-19, mRNA, LNP-s, PF, B ooster, 100mcg/0.5mg (Moderna) 06/09/2021 Covid-19, Mrna, Lnp-s, Pf, B ivalent, 50 Mcg, IM, 12 yrs and above (Moderna) 01/18/2022 PPD 03/30/2010 Pneumococcal Conjugate Vacc, 13 Valent (Prevnar) 05/19/2020 Pneumococcal Polysaccharide PPV23 (Pneumovax) 10/29/2011,10/25/2011,08/19/2006 Seasonal Influenza Vac., MDV , IM, 0.5 mL (Fluzone) 02/10/2017,02/17/2014,02/08/2013,02/09,02/18/2011,03/01/2010,02/28/2009 ,03/09/2008,03/27/2007 Seasonal Influenza, PF, 6 M & above, IM , (FluLaval or Fluzone) 02/12/2022,02/09/2021,02/08/2019 Seasonal Influenza, Quadriva lent, No Preserve, IM 03/02/2020,02/09/2019,02/09/2018,02/19,02/27/2015 TD, Preservative Free 08/18/2018 TDAP (age 10 and older)(Boostrix) 02/10/2008 TDAP, Age 7 and older, IM (Adacel) 02/10/2008 documented as of this encounter Social History Tobacco Use Types Packs/Day Years Used Date Smoking Tobacco: Every Day Vaporizer Smokeless Tobacco: Never Alcohol Use Standard Drinks/Week Comments Yes 0 (1 standard drink = 0.6 oz pur e alcohol) ocas PHQ-2 Answer Date Recorded PHQ-2 Score 0 03/09/2019 Hunger Vital Sign Answer Date Recorded Worried About Running Out of Food in the Last Ye ar Never true 03/09/2019 Ran Out of Food in the Last Year Never true 03/09/2019 Comments No Sex and Gender Information Value Date Recorded Sex Assigned at Female 01/22/2023 10:53 AM EDT Legal Sex Female 6:25 AM EST Gender Identity Female 01/22/2023 10:53 AM EDT Sexual Orientation Straight 01/22/2023 10 :53 AM EDT Occupation Industry Job Start Date Job End Date Not on file Not on file Not on file Not on file documented as of this encounter Nursing Notes * Francine Lewis RN - 05/20/2024 3:17 PM EST Patient tolerated treatment without issue. VAD flushed with 10 ml NSS and Heparin 5 ml (100 units/ml). Rogel needle removed intact. Goals: Patient will remain free from injury Possible barriers to meeting goals: Ambulating with IV pole Stability of the patient: Moderately stable - low risk of patient condition declining or worsening Summary regarding today's goals: Met: Patient remained free from harm. Pt discharged in stable condition. * Francine Lewis RN - 05/20/2024 2:41 PM EST Chair 3 Patient here for treatment after appointment with Dr. Faria. Patient offers no acute complaints. Port accessed with good blood return and flushed with NS. Chemotherapy/Immunotherapy agents: Tecentriq Consent for chemotherapy drug treatment complete, dated, and signed? yes, date - 12/12/23 Treatment lab parameters met? Yes Has treatment weight changed > than 10%? No Treatment preauthorized? Yes VITALS Filed Vitals: BP Readings from Last 2 Encounters: 05/20/24 132/82 04/29/24 159/80 Pulse Readings from Last 2 Encounters: 05/20/24 85 04/29/24 97 Resp Readings from Last 2 Encounters: 04/07/24 18 04/06/24 16 SpO2 Readings from Last 2 Encounters: 05/20/24 95% 04/29/24 95% Temp Readings from Last 2 Encounters: 05/20/24 36.6 C (97.8 F) (Tympanic) 05/14/24 35.7 C (96.2 F) (Infrared ) Urine protein: N/A Patient education completed for treatment? Yes Blood transfusion consent signed and complete? NA Return appointment scheduled? Yes Patient had provider visit today? Yes - Ok to release order and treat per provider Functional Status: Functional status at today's visit: Fully active, able to carry on all pre-disease performance without restriction The drug name, dose, infusion volume, rate and route of administration, expiration date and time, appearance and physical integrity of the drug and rate set on the pump and sequencing of drug administration (as applicable) were verified by me and second sign-in RN. Patient was assessed for symptoms or adverse side effects during treatment. Patient Education: Patient instructed on use of heat and massage functions where applicable. Patient shown how to operate the heat function of the chair and to alert nursing staff if the chair feels too warm. Patient instructed on the risk of potential aburto while using the heat function. Safety and Risk for Injury Patient will remain free from injury. Ensure appropriate safety devices are available. Provide and maintain safe environment. documented in this encounter Plan of Treatment Upcoming Encounters Date Type Department Care Team (Late st Contact Info) Description 06/04/2024 1:15 PM EST Imaging Radiology [address] [facility] [phone] 06/07/2024 1:00 PM EST Appointment Radiology, [facility] [address] [place] [address] 06/09/2024 10:30 AM EST Office Visit Hematology/Oncology [facility] [address] [facility] [place] [phone] Sukhjinder Faria MD [address] [facility] [place] [address] 07/14/2024 3:00 PM EST Office Visit Pulmonary Medicine, [facility] [address] [facility] [place] [address] Eloy Pond MD [address] [facility] [place] [address] 09/13/2024 3:00 PM EDT Office Visit Rheumatology [address] [place] [phone] Maile Wallace CRNP [address] [place] [address] [place] [address] Health Maintenance Due Date Last Done Comments HIV Screening 1982 Hepatitis C Screening 1985 Hepatitis B Vaccine (1 of 3 - 19+ 3-dose series) 1986 Zoster Vaccines (1 of 2) 1986 HPV/Co-Test 1997 Colonoscopy 2012 Fecal Occult Blood Test 2012 Sigmoidoscopy 2012 Depression Screening 03/09/2020 03/09/2019 Cervical Cancer Screening 09/08/2020 Pap Smear 09/08/2020 09/08/2017, 09/09, 09/21/2012, Additional history exists Cologuard 06/01/2022 06/01/2019 Colorectal Cancer Screening 06/01/2022 COVID-19 Vaccine ( season) 2024 01/18/2022, 06/09/2021, 12/27/2020, Additional history exists HbA1c 08/06/2024 08/07/2023 Mammogram 09/11/2024 09/12/2023, 08/11, 08/29/2020, Additional history exists Lipid Panel 05/19/2025 05/19/2020, 05/13, 03/07/2017, Additional history exists Pneumococcal Vaccine: 50+ Years (4 of 4 - PCV20 or PCV21) 05/19/2025 05/19/2020, 10/29/2011, 10/25/2011, Additional history exists TSH 05/20/2025 05/20/2024, 04/11, 04/05/2024, Additional history exists DTap/Tdap Vaccines (4 - Td or Tdap) 08/18/2028 08/18/2018, 02/10/2008, 02/10/2008 Influenza Vaccine (FLU shot) Completed , 02/12/2022, 02/09/2021, Additional history exists HPV (Gardasil) Vaccine Aged Out No lo nger eligible based on patient's age to complete this topic MENINGOCOCCAL (MENACTRA/MENVEO) Aged Out No longer eligible based on patient's age to complete this topic documented as of this encounter Medical Devices Implanted Type Area Consulting Solution Director Device Identifier Shelf Expiration Date Model / Serial / Lot Port Implant [id number] Poly Cath - [id number] Implanted:Qty : 1 on 12/31/2023 by Sin Burroughs MD at OR [facility] Right: Chest CR BARD : PERIPHERAL VASCULAR [id number] 10/09/2024 [id number] / / [id number] documented as of this encounter Visit Diagnoses Diagnosis Encounter for antineoplastic chemotherapy- Primary Cancer, metastatic to bone (HCC) Secondary malignant neoplasm of bone and bone marrow Metastatic adenocarcinoma to liver (HCC) Secondary malignant neoplasm of liver Small cell lung cancer, right (HCC) documented in this encounter Administered Medications Inactive Administered Medications - up to 3 most recent administrations Medication Order MAR Action Action Date Dose Rate Site Atezolizumab (Tecentriq) 1,200 mg in NSS 250 mL infusion 1,200 mg, IV Piggyback, ONCE, 1 dose, On Lizbeth 05/20/24 at 1500, Administer over 30 Minutes, Administer first infusion over 60 minutes and if tolerated, subsequent doses may be infused over 30 minutes.Indications:Encount er for antineoplastic chemotherapy,Cancer, metastatic to bone (HCC),Metastatic adenocarcinoma to liver (HCC),Small cell lung cancer, right (HCC) Start Infusion 05/20/2024 2:29 PM EST 1,200 mg 550 mL/hr hEParin 100 UNIT/ML Lock Flush inj 500 Units 500 Units (5 mL), IV Lock, PRN Other, IV Flush, Starting on Lizbeth 05/20/24 at 1329, Until Lizbeth 05/20/24 at 1920, For 24 hours, Do not flush if lock, PICC, or central line not in place; IV infusing or unable to flush.Indications:Encounter for antineoplastic chemotherapy,Cancer, metastatic to bone (HCC),Metastatic adenocarcinoma to liver (HCC),Small cell lung cancer, right (HCC) Given 05/20/2024 3:04 PM EST 500 Units NSS infusion Intravenous, at 50 mL/hr, PRN, Starting on Lizbeth 05/20/24 at 1430, Until Lizbeth 05/20/24 at 1920, Maintenance lineIndications:Encounter for antineoplastic chemotherapy,Cancer, metastatic to bone (HCC),Metastatic adenocarcinoma to liver (HCC),Small cell lung cancer, right (HCC) Start Infusion 05/20/2024 1:51 PM EST 50 mL/hr sodium chloride 0.9 % flush central line 10 mL 10 mL, IV Push, PRN Other, IV Flush, Starting on Lizbeth 05/20/24 at 1329, Until Lizbeth 05/20/24 at 1920, For 24 hours, Do not flush if lock, PICC, or central line not in place; IV infusing or unable to flush.Indications:Encounter for antineoplastic chemotherapy,Cancer, metastatic to bone (HCC),Metastatic adenocarcinoma to liver (HCC),Small cell lung cancer, right (HCC) Given 05/20/2024 3:04 PM EST 10 mL documented in this encounter Care Teams Marine Cargo Surveyor Relationship Specialty Start Date End Date Edel Clay MD [address] [place] [address] [place] [address] PCP - General Family Medicine 03/03/17 documented as of this encounter
--- OUTSIDE RECORDS SUMMARY | 2024-06-12 02:15 | External Medical Summary ---
Author Name Unknown Address Unknown Organization [id number]:[facility] [place] [address] [place] [address] Laboratory Report Ordering Provider Test Date Status JUAQUIN JOHNSON 06/09/2024 10:00:16 Final Observation Date Value Abnormality Reference (Units ) Status T4, Free 06/09/2024 10:00:16 1.8 Above high normal 0. 9-1.7 (ng/dL) Final Performing Location [facility] - [address] [place] [address]
--- OUTSIDE RECORDS SUMMARY | 2024-06-12 02:15 | External Medical Summary | Summary of Care ---
Author Name Unknown Organization [facility] Address [address] [place] [address] Phone [phone] Care Team Providers Care Furnace Builder Name Role Phone Edel Clay MD Primary Care Provide r Reason for Visit * Reason Onset Date Comments Appointment 06/04/2024 Encounter Details Date Type Department Care Team (Late st Contact Info) Description 06/04/2024 Telephone Radiology, [address] [address] [address] Appointment Allergies Active Allergy Reactions Criticality Noted Date Comments Clindamycin Hives 08/26/2014 Codeine 10/25/2011 "Stupor", drowsy Other Allergy (See Comments) 024 Perfumes, hairspray, candles, etc. Sinus infections, headaches, very sensitive. Penicillins 01/30/2006 Hives ans swelling Sulfa Antibiotics 06/29/2010 Sick to her stomach documented as of this encounter (statuses as of 06/04/2024) Medications OMEGA-3 FATTY ACIDS 1000 MG PO CAPS 0 07/23/19 07 Active Orencia 125 MG/ML Subcutaneous Solution Prefilled Syringe (Abatacept)Indicat ions:Rheumatoid arthritis involving multiple sites with positive rheumatoid factor (HCC) INJECT 125 MG ( ONE SYRINGE ) [...] 24 Active OLANZapine 10 MG Oral Tablet (zyPREXA)Indicatio ns:Encounter for antineoplastic chemotherapy,Cance r, metastatic to bone (HCC),Metastatic adenocarcinoma to liver (HCC),Small cell lung cancer, right (HCC) Take 1 Tablet by mouth at bedtime. On days 1, 2, 3, and 4 of chemo. 8 Tablet 03/05/20 Active Azelastine HCl 137 MCG/SPRAY Nasal SolutionIndication s:Rhinitis, nonallergic SPRAY 2 SPRAYS INTO EACH NOSTRIL IN THE MORNING AND BEFORE BEDTIME 90 mL 3 04/06/20 Active LORazepam 0.5 MG Oral Tablet (Ativan)Indication s:Small cell lung cancer, right (HCC),Anxiety,Alycia strophobia Take 1 Tablet by mouth every 8 hours as needed for Anxiety. 60 Tablet 04/05/20 Active predniSONE 5 MG Oral Tablet (Deltasone) [...] as of this encounter (statuses as of 06/04/2024) Active Problems Problem Noted Date Diagnosed Date [...] as of this encounter (statuses as of 06/04/2024) Resolved Problems Problem Noted Date Diagnosed Date [...] 07/18/2008 06/01/2019 Overview (07/31/2009): thyroglobulin antibody >3000 [id number] 08/19/200608/10 Overview (08/25/2009): Renamed Per Clinical Trials Billing Project. Pt is a participant in the [employer] (Consortium of Rheumatology Researchers of [place]) national data collection study. For further information please call Dr Temo Castaneda or Kim Ríos, RN, CCRC at [phone] [facility] RESEARCH OTHER*[id number] 08/19/2006 11/06/2009 Overview (08/25/2009): Renamed Per Clinical Trials Billing Project. Pt is a participant in the [employer] (Consortium of Rheumatology Researchers of [place]) national data collection study. For further information please call Dr Temo Castaneda or Kim Roís, RN, CCRC at [phone] Arthritis, rheumatoid 07/01/20062016 Abnormal blood chemistry 05/02/2006 [...] as of this encounter (statuses as of 06/04/2024) Immunizations Name Administration Dates Next Due COVID-19 [...] on file documented as of this encounter Miscellaneous Notes * Telephone Encounter - Nai Davenport [place] - 06/04/2024 12:04 PM EST Name: Alfredo Torrez Do you have any of the following: Pacemaker, stents, heart valves, aneurysm clips? No Have you ever worked with metal or have you ever gotten metal in your eyes? No Have you had a colonoscopy in the last 30 days? No Are you on dialysis? No Do you have any dermals or body piercing's? No Do you wear an insulin pump or CGM? No Are you currently or breast feeding? No KEILY Patterson documented in this encounter Plan of Treatment Upcoming Encounters Date Type Department Care Team (Late st Contact Info) Description 06/04/2024 1:15 PM EST Imaging Radiology [facility] 1st [facility] [address] [place] [phone] 06/07/2024 1:00 PM EST Hospital Encounter Radiology, [facility] [address] [facility] [place] [address] 06/09/2024 9:50 AM EST Laboratory Laboratory [facility] [place] [address] [place] [phone] [place], Lab Scenery 200 [facility] [place] [address] 06/09/2024 10:30 AM EST Office Visit Hematology/Oncology [facility] [place] [address] [place] [phone] Sukhjinder Faria MD [address] [place] [address] 06/09/2024 11:00 AM EST Hem/Onc Treatment Hematology/Oncology Treatment, [place] [address] [place] [phone] [place], Chair 7 Hem Onc [facility] 200 [facility] [place] [address] 07/14/2024 3:00 PM EST Office Visit Pulmonary Medicine, [facility] [address] [place] [address] Eloy Pond MD [address] [place] [address] 09/13/2024 3:00 PM EDT Office Visit Rheumatology [address] [place] [phone] Maile Wallace CRNP [address] [facility] [address] Health Maintenance Due Date Last Done Comments [...] this encounter Medical Devices Implanted Type Area Control Panel Tester Device Identifier Shelf Expiration Date Model / Serial / Lot Port Implant W8f Poly Cath - [id number] Implanted:Qty : 1 on 12/31/2023 by Sin Burroughs MD at [facility] Right: Chest CR BARD : PERIPHERAL VASCULAR [id number] 10/09/2024 [id number] / / [id number] documented as of this encounter Care Teams Furnace Builder Relationship Specialty Start Date End Date Edel Clay MD [address] [place] [address] [place] [phone] PCP - General Family Medicine 03/03/17 documented as of this encounter
--- OUTSIDE RECORDS SUMMARY | 2024-06-12 02:15 | External Medical Summary ---
Author Name Unknown Address Unknown Organization K09:[facility] [address] [place] [address] Laboratory Report Ordering Provider Test Date Status JUAQUIN JOHNSON 06/09/2024 10:00:16 Final Observation Date Value Abnormality Reference (Units ) Status BUN 06/09/2024 10:00:16 12 6-20 (mg/dL) Final Creatinine 06/09/2024 10:00:16 0.9 0.5-1.0 (mg/dL) Final Glomerular filtration rate/1.73 sq M.predicted [Volume Rate/Area] in Serum, Plasma or Blood by Creatinine-based formula (CKD-EPI) 06/09/2024 10:00:16 72 >=60 (mL/min) Final eGFR is calculated based on the CKD-EPI 2020 equation. Sodium 06/09/2024 10:00:16 134 Below low normal 135 -146 (mmol/L) Final Potassium 06/09/2024 10:00:16 3.3 Below low normal 3.5 -5.1 (mmol/L) Final Cl 06/09/2024 10:00:16 93 Below low normal 98- 107 (mmol/L) Final CO2 06/09/2024 10:00:16 26 22-32 (mmo l/L) Final Anion gap 06/09/2024 10:00:16 15 7-15 (mmol /L) Final Glucose 06/09/2024 10:00:16 173 Above high normal 70 -120 (mg/dL) Final Albumin 06/09/2024 10:00:16 4.3 3.8-5.0 (g /dL) Final AST (Aspartate aminotransferase) 06/09/2024 10:00:16 43 Above high normal 10-35 (U/L) Final Alk Phos 06/09/2024 10:00:16 90 35-130 (U/ L) Final Bilirubin, Total 06/09/2024 10:00:16 0.5 <=1 .2 (mg/dL) Final Calcium 06/09/2024 10:00:16 10.3 Above high normal 8. 4-10.2 (mg/dL) Final Protein 06/09/2024 10:00:16 8.0 6.0-8.3 (g /dL) Final ALT (Alanine aminotransferase) 06/09/2024 10:00:16 42 Above high normal 10-35 (U/L) Final Performing Location [facility] [address] [place] [address]
--- OUTSIDE RECORDS SUMMARY | 2024-06-12 02:15 | External Medical Summary | Summary of Care ---
Author Name Unknown Organization [facility] Address [address] [place] [address] Phone [phone] Care Team Providers Care Adult Secondary Education Instructor Name Role Phone Edel Clay MD Primary Care Provide r Reason for Visit * Reason Onset Date Comments Appointment 06/04/2024 Encounter Details Date Type Department Care Team (Late st Contact Info) Description 06/04/2024 Telephone Radiology, [address] [address] Appointment Allergies Active Allergy Reactions Criticality Noted [...] 07/18/2008 06/01/2019 Overview (07/31/2009): thyroglobulin antibody >3000 [id number] 08/19/200608/10 Overview (08/25/2009): Renamed Per Clinical Trials Billing Project. Pt is a participant in the [employer] (Consortium of Rheumatology Researchers of [place]) national data collection study. For further information please call Dr Temo Castaneda or Kim Ríos, RN, CCRC at [phone] [facility] RESEARCH OTHER*[id number] 08/19/2006 11/06/2009 Overview (08/25/2009): Renamed Per Clinical Trials Billing Project. Pt is a participant in the [employer] (Consortium of Rheumatology Researchers of [place]) national data collection study. For further information please call Dr Temo Castaneda or Kim Ríos, RN, CCRC at [phone] Arthritis, rheumatoid 07/01/20062016 Abnormal blood chemistry 05/02/2006 [...] Encounter - Nai Davenport [place] - 06/04/2024 12:01 PM EST Name: Alfredo Torrez [facility] for mri questionnaire KEILY Patterson documented in this encounter Plan of Treatment Upcoming Encounters Date Type Department Care Team (Late st Contact Info) Description 06/04/2024 1:15 PM EST [facility] [address] [place] [address] 06/07/2024 1:00 PM EST Hospital Encounter Radiology, [facility] 400 [facility] [place] [address] 06/09/2024 9:50 AM EST Laboratory Laboratory [facility] [place] [address] [place] [address] [place], Lab Scenery [address] [facility] [place] [address] 06/09/2024 10:30 AM EST Office Visit Hematology/Oncology [facility] [place] [address] [place] [address] Sukhjinder Faria MD [address] [place] [address] 06/09/2024 11:00 AM EST Hem/Onc Treatment Hematology/Oncology Treatment, [place] [address] [place] [phone] [place], Chair 7 Hem Onc Scenery 200 [facility] [place] [address] 07/14/2024 3:00 PM EST Office Visit Pulmonary Medicine, [facility] 132 [facility] [place] [address] Eloy Pond MD [address] [facility] [address] 09/13/2024 3:00 PM EDT Office Visit Rheumatology [address] [place] [phone] Maile Wallace CRNP [address] [place] [address] [place] [address] Health Maintenance Due Date Last Done Comments [...] this encounter Medical Devices Implanted Type Area Pipe Line Walker Device Identifier Shelf Expiration Date Model / Serial / Lot Port Implant W8f Poly Cath - [id number] Implanted:Qty : 1 on 12/31/2023 by Sin Burroughs MD at [facility] Right: Chest CR BARD : PERIPHERAL VASCULAR [id number] 10/09/2024 [id number] / / [id number] documented as of this encounter Care Teams Adult Secondary Education Instructor Relationship Specialty Start Date End Date Edel Clay MD [address] [place] [address] [place] [address] PCP - General Family Medicine 03/03/17 documented as of this encounter
--- OUTSIDE RECORDS SUMMARY | 2024-06-12 02:15 | External Medical Summary | Summary of Care ---
Author Name Unknown Organization [facility] Address [address] [place] [address] Phone [phone] Care Team Providers Care Stripper Latex Name Role Phone Edel Clay MD Primary Care Provide r Reason for Visit * Reason Comments Chemotherapy Tecentriq * Episode Based Medications (Routine) - Authorized Specialty Diagnoses / Procedures Referred By Contac t Referred To Contact Diagnoses Encounter for antineoplastic chemotherapy Cancer, metastatic to bone (HCC) Metastatic adenocarcinoma to liver (HCC) Small cell lung cancer, right (HCC) Procedures AK CARBOPLATIN INJECTION AK FOSAPREPITANT INJECTION AK ETOPOSIDE 10 MG INJ AK INJ, ATEZOLIZUMAB,10 MG AK INJECTION, Monica Anderson MD Hematology/Oncology Treatment, [address] [address] Phone: tel: fax: Referral ID Status Reason Start Date Expiration Date V isits Requested Visits Authorized [id number] Authorized 12/17/2023 06/13/[phone] Encounter Details Date Type Department Care Team (Latest Contact Info) Description 04/29/2024 11:00 AM EST Hem/Onc Treatment Hematology/Oncolog y Treatment, [address] [phone] [place], Chair 2 Hem On[address] [address] Encounter for antineoplastic chemotherapy*; Cancer, metastatic [...] as of this encounter (statuses as of 05/21/2024) Medications OMEGA-3 FATTY ACIDS 1000 MG PO CAPS 0 07/23/19 07 Active Orencia 125 MG/ML Subcutaneous Solution Prefilled Syringe (Abatacept)Indica tions:Rheumatoid arthritis involving multiple sites with positive rheumatoid factor (HCC) INJECT 125 MG ( ONE SYRINGE ) UNDER THE SKIN ONCE A WEEK 4 mL 11 12/26/19 23 Active Additional Information Patient not taking.Reported on 02/23/2024 Levothyroxine Sodium 100 MCG Oral Tablet (Levoxyl)Indicati ons:Acquired hypothyroidism Take 1 Tablet by mouth daily first thing in the morning. (at least 30 min prior to breakfast or other meds) 90 Tablet 3 08/05/19 24 Active Magic Swizzle (Lidocaine-Benadr yl-Maalox) oral solution Swish and spit 15 mL [...] Breath. 18 g 11 12/04/19 24 Active Additional Information Patient not taking.Reported on 02/23/2024 Prochlorperazine Maleate 10 MG Oral Tablet (Compazine)Indica tions:Encounter for antineoplastic chemotherapy,Canc er, metastatic to bone (HCC),Metastatic adenocarcinoma to liver (HCC),Small cell lung cancer, right (HCC) Take 1 Tablet by mouth every 6 hours as needed for Nausea. 30 Tablet 5 12/19/19 24 Active Lidocaine-Priloca ine 2.5-2.5 % External Cream (Emla)Indications :Small cell lung cancer, right (HCC),Metastatic adenocarcinoma to liver (HCC),Cancer, metastatic to bone (HCC) APPLY TO SKIN OVER MEDIPORT & COVER 1HR PRIOR TO ACCESSING. 30 g 1 12/19/19 24 Active oxyCODONE-Acetami nophen 5-325 MG/5ML Oral Solution (Roxicet) Take by mouth every 4 hours as needed. Active dexAMETHasone 4 MG Oral Tablet (Decadron)Indicat ions:Encounter for antineoplastic chemotherapy,Canc er, metastatic to bone (HCC),Metastatic adenocarcinoma to liver (HCC),Small cell lung cancer, right (HCC) Take 2 Tablets by mouth in the morning. With food on days 2, 3, and 4 of chemo.. 12 Tablet 03/05/20 24 Active OLANZapine 10 MG Oral Tablet (zyPREXA)Indicati ons:Encounter for antineoplastic chemotherapy,Canc er, metastatic to bone (HCC),Metastatic adenocarcinoma to liver (HCC),Small cell lung cancer, right (HCC) Take 1 Tablet by mouth at bedtime. On days 1, 2, 3, and 4 of chemo. 8 Tablet 03/05/20 24 Active Azelastine HCl 137 MCG/SPRAY Nasal SolutionIndicatio ns:Rhinitis, nonallergic SPRAY 2 SPRAYS INTO EACH NOSTRIL IN THE MORNING AND BEFORE BEDTIME 90 mL 3 04/06/20 24 Active LORazepam 0.5 MG Oral Tablet (Ativan)Indicatio ns:Small cell lung cancer, right (HCC),Anxiety,Cla ustrophobia Take 1 Tablet by mouth every 8 hours as needed for Anxiety. 60 Tablet 04/05/20 24 Active predniSONE 5 MG Oral Tablet (Deltasone) Take 1 to 2 tabs a day as needed for RA flare 60 Tablet 2 04/13/20 24 Active Methotrexate Sodium 2.5 MG Oral Tablet TAKE 6 TABLETS BY MOUTH ONE TIME PER WEEK 78 Tablet 1 10/09/19 24 024 Discontin ued(Refil l) Folic Acid 1 MG Oral TabletIndications :Rheumatoid arthritis involving multiple sites with positive rheumatoid factor (HCC) TAKE 1 TABLET BY MOUTH EVERY DAY 90 Tablet 1 12/01/19 24 024 Discontin ued(Refil l) Azithromycin 250 MG Oral Tablet (Zithromax Z-Dale)Indications :Acute maxillary sinusitis, recurrence not specified Take two tablets by mouth on first day, then 1 tablet daily until gone 6 Tablet 04/22/20 24 025 Discontin ued(Medic ation List Clean Up) Hospital, Clinic, or Other Facility Administered Medication Ordered Dose Route Frequency Start Date End Date Status Albuterol Sulfate (Proventil) (2.5 MG/3ML) 0.083% inhalation solution 2.5 mgIndications:Mass of right lung 2.5 mg NEBULIZER PRN 12/10/2023 Active Albuterol Sulfate (Proventil) (5 MG/ML) 0.5% *conc* inhalation solution 2.5 mgIndications:Mass of right lung 2.5 mg NEBULIZER PRN 12/10/2023 Active documented as of this encounter (statuses as of 05/21/2024) Active Problems Problem Noted Date Diagnosed Date [...] as of this encounter (statuses as of 05/21/2024) Resolved Problems Problem Noted Date Diagnosed Date [...] 07/18/2008 06/01/2019 Overview (07/31/2009): thyroglobulin antibody >3000 [id number] 08/19/200608/10 Overview (08/25/2009): Renamed Per Clinical Trials Billing Project. Pt is a participant in the [facility] (Consortium of Rheumatology Researchers of [place]) national data collection study. For further information please call Dr Temo Castaneda or Kim Ríos, RN, CCRC at [phone] [facility] RESEARCH OTHER*[id number] 08/19/2006 11/06/2009 Overview (08/25/2009): Renamed Per Clinical Trials Billing Project. Pt is a participant in the [facility] (Consortium of Rheumatology Researchers of [place]) national data collection study. For further information please call Dr Temo Castaneda or Kim Ríos, RN, CCRC at [phone] Arthritis, rheumatoid 07/01/20062016 Abnormal blood chemistry 05/02/2006 [...] as of this encounter (statuses as of 05/21/2024) Immunizations Name Administration Dates Next Due COVID-19 [...] Years Used Date Smoking Tobacco: Every Day Cigarettes 1 28.5 Started: 12/04/1995 Smokeless Tobacco: Never Alcohol Use Standard Drinks/Week [...] as of this encounter Nursing Notes * Domitila Nettles RN - 04/29/2024 5:30 PM EST Pt completed treatment without issues. VAD flushed with 10 ml NSS and Heparin 5 ml (100 units/ml). Rogel needle removed intact. Goals: Pt will remainfree from injury. Possible barriers to meeting goals: ambulation with IV pole Stability of the patient: Moderately stable - low risk of patient condition declining or worsening Summary regarding today's goals: Met: . Pt remained free from injury during treatment today. Discharged in stable condition. * Domitila Nettles RN - 04/29/2024 12:10 PM EST Chair 10 Chemotherapy/Immunotherapy agents: Tecentriq Consent for chemotherapy drug treatment complete, dated, and signed? yes, date - 12/12/23 Treatment lab parameters met? Yes Has treatment weight changed > than 10%? No Treatment preauthorized? Yes VITALS Filed Vitals: BP Readings from Last 2 Encounters: 04/29/24 159/80 04/07/24 127/66 Pulse Readings from Last 2 Encounters: 04/29/24 97 04/07/24 54 Resp Readings from Last 2 Encounters: 04/07/24 18 04/06/24 16 SpO2 Readings from Last 2 Encounters: 04/29/24 95% 04/07/24 97% Temp Readings from Last 2 Encounters: 04/29/24 37.2 C (98.9 F) (Tympanic) 04/07/24 36.5 C (97.7 F) (Tympanic) Urine protein: N/A Patient education completed for treatment? Yes Blood transfusion consent signed and complete? NA Return appointment scheduled? Yes Patient had provider visit today? Yes - Ok to release order and treat per provider VAD accessed; NSS infusing. Safety and Risk for Injury Patient will remain free from injury. Ensure appropriate safety devices are available. Provide and maintain safe environment. Functional Status: Functional status at today's visit: [...] potential aburto while using the heat function. documented in this encounter Plan of Treatment Upcoming Encounters Date Type Department Care Team (Late st Contact Info) Description 06/04/2024 1:15 PM EST Imaging Radiology [address] 132 [facility] [place] [address] 06/07/2024 1:00 PM EST Appointment Radiology, [address] [place] [address] 06/09/2024 10:30 AM EST Office Visit Hematology/Oncology [facility] [place] 200 [facility] [place] [phone] Sukhjinder Faria MD 200 [facility] [place] [address] 07/14/2024 3:00 PM EST Office Visit Pulmonary Medicine, [facility] [address] [place] [address] Eloy Pond MD [address] [place] [address] 09/13/2024 3:00 PM EDT Office Visit Rheumatology [address] [place] [phone] Maile Wallace CRNP [address] [place], [place] [address] Health Maintenance Due Date Last Done Comments [...] this encounter Medical Devices Implanted Type Area Protocol Manager Device Identifier Shelf Expiration Date Model / Serial / Lot Port Implant W8f Poly Cath - [id number] Implanted:Qty : 1 on 12/31/2023 by Sin Burroughs MD at OR [facility] Right: Chest CR BARD : PERIPHERAL VASCULAR [id number] 10/09/2024 [id number] / / [id number] documented as of this encounter Visit Diagnoses [...] IV Piggyback, ONCE, 1 dose, On Lizbeth 04/29/24 at 1330, Administer over 30 Minutes, Administer first infusion over 60 minutes and if tolerated, subsequent doses may be infused over 30 minutes.Indications:Encount er for antineoplastic chemotherapy,Cancer, metastatic to bone (HCC),Metastatic adenocarcinoma to liver (HCC),Small cell lung cancer, right (HCC) Start Infusion 04/29/2024 12:28 PM EST 1,200 mg 550 mL/hr hEParin 100 UNIT/ML Lock Flush inj 500 Units 500 Units (5 mL), IV Lock, PRN Other, IV Flush, Starting on Lizbeth 04/29/24 at 1150, Until Lizbeth 04/29/24 at 2131, For 24 hours, Do not flush if lock, PICC, or central line not in place; IV infusing or unable to flush.Indications:Encounter for antineoplastic chemotherapy,Cancer, metastatic to bone (HCC),Metastatic adenocarcinoma to liver (HCC),Small cell lung cancer, right (HCC) Given 04/29/2024 1:26 PM EST 500 Units NSS infusion Intravenous, at 50 mL/hr, PRN, Starting on Lizbeth 04/29/24 at 1300, Until Lizbeth 04/29/24 at 2131, Maintenance lineIndications:Encounter for antineoplastic chemotherapy,Cancer, metastatic to bone (HCC),Metastatic adenocarcinoma to liver (HCC),Small cell lung cancer, right (HCC) Start Infusion 04/29/2024 11:50 AM EST 50 mL/hr sodium chloride 0.9 % flush central line 10 mL 10 mL, IV Push, PRN Other, IV Flush, Starting on Lizbeth 04/29/24 at 1150, Until Lizbeth 04/29/24 at 2131, For 24 hours, Do not flush if lock, PICC, or central line not in place; IV infusing or unable to flush.Indications:Encounter for antineoplastic chemotherapy,Cancer, metastatic to bone (HCC),Metastatic adenocarcinoma to liver (HCC),Small cell lung cancer, right (HCC) Given 04/29/2024 1:26 PM EST 10 mL Zoledronic Acid (Zometa) 4 mg in 100 mL PREMIX ivpb 4 mg, IV Piggyback, ONCE, 1 dose, On Lizbeth 04/29/24 at 1345Indications:Cancer, metastatic to bone (HCC),Metastatic adenocarcinoma to liver (HCC),Small cell lung cancer, right (HCC) Start Infusion 04/29/2024 1:04 PM EST 4 mg 400 mL/hr documented in this encounter Care Teams Stripper Latex Relationship Specialty Start Date End Date Edel Clay MD [address] [place] [address] [place] [address] PCP - General Family Medicine 03/03/17 documented as of this encounter
--- OUTSIDE RECORDS SUMMARY | 2024-06-12 02:15 | External Medical Summary ---
Author Name Unknown Address Unknown Organization K01:[facility] [address] [place] [address] Laboratory Report Ordering Provider Test Date Status JUAQUIN JOHNSON 06/09/2024 10:00:16 Final Observation Date Value Abnormality Reference (Units ) Status CRP, low-sensitivity 06/09/2024 10:00:16 13 Above high normal <=5 (mg/L) Final Performing Location [facility] - [address] [place] [address]
--- OUTSIDE RECORDS SUMMARY | 2024-06-12 02:15 | External Medical Summary ---
Author Name Unknown Address Unknown Organization K09:[facility] [place] [address] Laboratory Report Ordering Provider Test Date Status JUAQUIN JOHNSON 06/11/2024 13:36:56 Final Observation Date Value Abnormality Reference (Units ) Status Magnesium 06/11/2024 13:36:56 1.6 1.5-2.6 (m g/dL) Final Performing Location [facility] [place] [address]
--- OUTSIDE RECORDS SUMMARY | 2024-06-12 02:15 | External Medical Summary ---
Author Name Unknown Address Unknown Organization K09:[facility] [place] [address] Laboratory Report Ordering Provider Test Date Status JUAQUIN JOHNSON 06/11/2024 13:36:56 Final Observation Date Value Abnormality Reference (Units ) Status SYNC LEUKOCYTES IN BLOOD BY AUTOMATED COUNT 06/11/2024 13:36:56 10.32 4.00-10.80 (K/uL) Final Segs 06/11/2024 13:36:56 82.2 Above high normal 40.0-75.0 (%) Final Lymphs % 06/11/2024 13:36:56 14.2 Below low normal 18.0-42.0 (%) Final Monos 06/11/2024 13:36:56 3.5 1.0-11.0 (%) Final Eosinophils 06/11/2024 13:36:56 0.0 0.0-6.0 (%) Final Basos 06/11/2024 13:36:56 0.1 0.0-2.0 (%) Final Absolute Segs 06/11/2024 13:36:56 8.48 Above high normal 1.80-7.70 (K/uL) Final Lymphs, absolute 06/11/2024 13:36:56 1.47 1.00-4.80 (K/ul) Final Monos, Abs 06/11/2024 13:36:56 0.36 0.00-1.10 (K/uL) Final Eos, Abs 06/11/2024 13:36:56 0.00 0.00-0.70 (K/uL) Final Basos, Abs 06/11/2024 13:36:56 0.01 0.00-0.20 (K/uL) Final Performing Location [facility] [place] [address]
--- OUTSIDE RECORDS SUMMARY | 2024-06-12 02:15 | External Medical Summary | Summary of Care ---
Author Name Unknown Organization [facility] Address [address] [place] [address] Phone [phone] Care Team Providers Care Mother Superior Name Role Phone Edel Clay MD Primary Care Provide r Reason for Visit * Reason Onset Date Comments Precert Future 06/09/2024 Zepzelca Encounter Details Date Type Department Care Team (Late st Contact Info) Description 06/09/2024 Telephone Hematology/Oncology [facility] [place] [address] [place] [address] Sukhjinder Faria MD [address] [facility] [address] Precert Future (Zepzelca) Allergies Active Allergy Reactions Criticality Noted Date Comments Clindamycin Hives 08/26/2014 Codeine 10/25/2011 "Stupor", drowsy Other Allergy (See Comments) 024 Perfumes, hairspray, candles, etc. Sinus infections, headaches, very sensitive. Penicillins 01/30/2006 Hives ans swelling Sulfa Antibiotics 06/29/2010 Sick to her stomach documented as of this encounter (statuses as of 06/10/2024) Medications OMEGA-3 FATTY ACIDS 1000 MG PO [...] Breath. 18 g 11 12/04/19 24 Active Lidocaine-Prilocai ne 2.5-2.5 % External Cream (Emla)Indications: Small cell lung cancer, right (HCC),Metastatic adenocarcinoma to liver (HCC),Cancer, metastatic to bone (HCC) APPLY TO SKIN OVER MEDIPORT & COVER 1HR PRIOR TO ACCESSING. 30 g 1 12/19/19 24 Active oxyCODONE-Acetamin ophen 5-325 MG/5ML Oral Solution (Roxicet) Take by mouth every 4 hours as needed. Active Azelastine HCl 137 MCG/SPRAY Nasal SolutionIndication [...] as of this encounter (statuses as of 06/10/2024) Active Problems Problem Noted Date Diagnosed Date Metastasis to liver 06/09/2024 Metastatic adenocarcinoma to liver 12/16/2023 Cancer, metastatic [...] as of this encounter (statuses as of 06/10/2024) Resolved Problems Problem Noted Date Diagnosed Date [...] 07/18/2008 06/01/2019 Overview (07/31/2009): thyroglobulin antibody >3000 [id number] 08/19/200608/10 Overview (08/25/2009): Renamed Per Clinical Trials Billing Project. Pt is a participant in the [facility] (Consortium of Rheumatology Researchers of [facility]) national data collection study. For further information please call Dr Temo Castaneda or Kim Ríos, RN, CCRC at [phone] [facility] RESEARCH OTHER*[id number] 08/19/2006 11/06/2009 Overview (08/25/2009): Renamed Per Clinical Trials Billing Project. Pt is a participant in the [facility] (Consortium of Rheumatology Researchers of [place]) national data collection study. For further information please call Dr Temo Castaneda or Kim Ríos, RN, CCRC at [phone] Arthritis, rheumatoid 07/01/20062016 Abnormal blood chemistry 05/02/2006 [...] as of this encounter (statuses as of 06/10/2024) Immunizations Name Administration Dates Next Due COVID-19 [...] encounter Miscellaneous Notes * Telephone Encounter - Marcela Orellana RN - 06/10/2024 12:04 PM EST Referral entered. Jordon: please advise if/ when zepzelca will be available. Thanks! * Telephone Encounter - Kike Alvarez RN - 06/09/2024 11:25 AM EST Orders received, plan built and routed. Awaiting auth. -Chemo Consent: 06/09/24 -Chemo Education: 06/11/24 -Port Placement: Already placed -Standing Lab orders placed: CBCD,CMP, CK -Medications Pended: Check to see if patient has Zofran/Compazine still from previous treatment -Hep B Labs: Completed 12/19/23 documented in this encounter Plan of Treatment Upcoming Encounters Date Type Department Care Team (Late st Contact Info) Description 06/11/2024 1:00 PM EST Pt Ed by Nurse Hematology/Oncology [facility] [address] [place] [phone] Nurse [place] Hem Onc [facility] [address] [place] [address] 07/14/2024 3:00 PM EST Office Visit Pulmonary Medicine, [facility] [address] [place] [address] Eloy Pond MD [address] [place] [id number] 09/13/2024 3:00 PM EDT Office Visit Rheumatology [address] [place] [phone] Maile Wallace CRNP [address] [place] [address] [place], [place] [address] Scheduled Orders Name Type Priority Associated Diagnoses Orde r Schedule CBC WITH WBC DIFFERENTIAL Lab STAT Small cell lung cancer, right (HCC) Metastasis to liver (HCC) Cancer, metastatic to bone (HCC) Every 3 Weeks for 17 Occurrences starting 06/09/2024 until 06/09/2025 COMPREHENSIVE METABOLIC PANEL Lab STAT Small cell lung cancer, right (HCC) Metastasis to liver (HCC) Cancer, metastatic to bone (HCC) Every 3 Weeks for 17 Occurrences starting 06/09/2024 until 06/09/2025 CK Lab STAT Small cell lung cancer, right (HCC) Metastasis to liver (HCC) Cancer, metastatic to bone (HCC) Every 3 Weeks for 17 Occurrences starting 06/09/2024 until 06/09/2025 Health Maintenance Due Date Last Done Comments [...] 05/19/2020, 10/29/2011, 10/25/2011, Additional history exists TSH 06/09/2025 06/09/2024, 01/2025, 04/29/2024, Additional history exists DTap/Tdap Vaccines (4 - [...] this encounter Medical Devices Implanted Type Area Cooker Sulfite Device Identifier Shelf Expiration Date Model / Serial / Lot Port Implant W8f Poly Cath - [id number] Implanted:Qty : 1 on 12/31/2023 by Sin Burroughs MD at OR [facility] Right: Chest CR BARD : PERIPHERAL VASCULAR [id number] 10/09/2024 [id number] / / [id number] documented as of this encounter Visit Diagnoses Diagnosis Small cell lung cancer, right (HCC)- Primary Metastasis to liver (HCC) Secondary malignant neoplasm of liver Cancer, metastatic to bone (HCC) Secondary malignant neoplasm of bone and bone marrow documented in this encounter Care Teams Mother Superior Relationship Specialty Start Date End Date Edel Clay MD [address] [place] [address] [place] [address] PCP - General Family Medicine 03/03/17 documented as of this encounter
--- OUTSIDE RECORDS SUMMARY | 2024-06-12 02:15 | External Medical Summary ---
Author Name Unknown Address Unknown Organization K01:[facility] [place] [address] [facility] [address] Laboratory Report Ordering Provider Test Date Status JUAQUIN JOHNSON 06/09/2024 10:00:16 Final Observation Date Value Abnormality Reference (Units ) Status TSH 06/09/2024 10:00:16 11.50 Above high normal 0. 27-4.20 (uIU/mL) Final Performing Location [facility] [place] [address] [place] [address]
--- OUTSIDE RECORDS SUMMARY | 2024-06-12 02:15 | External Medical Summary ---
Author Name Unknown Address Unknown Organization K09:[facility] [place] [address] Laboratory Report Ordering Provider Test Date Status JUAQUIN JOHNSON 06/09/2024 10:00:16 Final Observation Date Value Abnormality Reference (Units ) Status SYNC LEUKOCYTES IN BLOOD BY AUTOMATED COUNT 06/09/2024 10:00:16 9.59 4.00-10.80 (K/uL) Final Segs 06/09/2024 10:00:16 82.4 Above high normal 40.0-75.0 (%) Final Lymphs % 06/09/2024 10:00:16 11.9 Below low normal 18.0-42.0 (%) Final Monos 06/09/2024 10:00:16 5.4 1.0-11.0 (%) Final Eosinophils 06/09/2024 10:00:16 0.1 0.0-6.0 (%) Final Basos 06/09/2024 10:00:16 0.2 0.0-2.0 (%) Final Absolute Segs 06/09/2024 10:00:16 7.90 Above high normal 1.80-7.70 (K/uL) Final Lymphs, absolute 06/09/2024 10:00:16 1.14 1.00-4.80 (K/ul) Final Monos, Abs 06/09/2024 10:00:16 0.52 0.00-1.10 (K/uL) Final Eos, Abs 06/09/2024 10:00:16 0.01 0.00-0.70 (K/uL) Final Basos, Abs 06/09/2024 10:00:16 0.02 0.00-0.20 (K/uL) Final Performing Location [facility] [place] [address]
--- OUTSIDE RECORDS SUMMARY | 2024-06-12 02:15 | External Medical Summary | Summary of Care ---
Author Name Unknown Organization [facility] Address [address] [place] [address] Phone [phone] Care Team Providers Care Stainless Steel Finisher Name Role Phone Edel Clay MD Primary Care Provide r Reason for Visit * Reason Onset Date Comments Advice 06/10/2024 Flare, requestin g injection Encounter Details Date Type Department Care Team (Late st Contact Info) Description 06/10/2024 Telephone Rheumatology [place] [phone] [employer] [place] [address] Samy Russo MD [facility] [email or web address] [place] [phone] Advice (Flare, requesting injection) Allergies Active Allergy Reactions Criticality Noted Date [...] 07/18/2008 06/01/2019 Overview (07/31/2009): thyroglobulin antibody >3000 [id number] 08/19/200608/10 Overview (08/25/2009): Renamed Per Clinical Trials Billing Project. Pt is a participant in the [facility] (Consortium of Rheumatology Researchers of [facility]) national data collection study. For further information please call Dr Temo Castaneda or Kim Ríos, RN, CCRC at [phone] [facility] RESEARCH OTHER*[id number] 08/19/2006 11/06/2009 Overview (08/25/2009): Renamed Per Clinical Trials Billing Project. Pt is a participant in the [facility] (Consortium of Rheumatology Researchers of [facility]) national data collection study. For further information please call Dr Temo Castaneda or Kim Ríos, RN, CCRC at [phone] Arthritis, rheumatoid 07/01/20062016 Abnormal blood chemistry 05/02/2006 [...] encounter Miscellaneous Notes * Telephone Encounter - Samy Russo MD - 06/10/2024 3:05 PM EST I spoke with Alfredo Goodwin - she is noting more neck, low back and hip pains. She is back on MTX. She is awaiting a newer chemo drug. She is seeing the oncology clinic tomorrow. She is taking pred 10mg daily. Prednisone helps some. We do not do injections area she is complaining of. Will have her do a prednisone taper. Will have her take an extra 15 mg right now and then take 20 mg in the morning. Asked her to come tech me around noon tomorrow for further tapering regimen. * Telephone Encounter - Susie Khoury OSA - 06/10/2024 10:23 AM EST [place] - Patient Related Communication Reason for Call: Pt called in as she is having a flare . She is having pain in neck andback . Unable to move / sit .She would like call from office to set up cortisoneinjection , TAVON Murry documented in this encounter Plan of Treatment Upcoming Encounters Date Type Department Care Team (Late st Contact Info) Description 06/11/2024 1:00 PM EST Pt Ed by Nurse Hematology/Oncology [facility] [place] [address] [place] [phone] [place] Nurse Hem Onc [address] [place] [address] 06/11/2024 4:00 PM EST Office Visit Family Medicine [address] [place] [phone] Marlyn Salgado MD [address] [place] [address] [place] [phone] 07/14/2024 3:00 PM EST Office Visit Pulmonary Medicine, [facility] [address] [facility] [place] [phone] Eloy Pond MD [address] [facility] [place] [address] 09/13/2024 3:00 PM EDT Office Visit Rheumatology [address] [place] [phone] Maile Wallace CRNP [address] [facility] [place] [address] Health Maintenance Due Date Last Done Comments [...] this encounter Medical Devices Implanted Type Area Air Carrier Maintenance Inspector Device Identifier Shelf Expiration Date Model / Serial / Lot Port Implant W8f Poly Cath - [id number] Implanted:Qty : 1 on 12/31/2023 by Sin Burroughs MD at [facility] Right: Chest CR BARD : PERIPHERAL VASCULAR [id number] 10/09/2024 [id number] / / [id number] documented as of this encounter Care Teams Stainless Steel Finisher Relationship Specialty Start Date End Date Edel Clay MD [address] [place] [address] [place] [phone] PCP - General Family Medicine 03/03/17 documented as of this encounter
--- OUTSIDE RECORDS SUMMARY | 2024-06-12 02:15 | External Medical Summary ---
Author Name Unknown Address Unknown Organization K09:[facility] [place] [address] Laboratory Report Ordering Provider Test Date Status JUAQUIN JOHNSON 06/11/2024 13:36:56 Final Observation Date Value Abnormality Reference (Units ) Status BUN 06/11/2024 13:36:56 13 6-20 (mg/dL) Final Creatinine 06/11/2024 13:36:56 0.7 0.5-1.0 (mg/dL) Final Glomerular filtration rate/1.73 sq M.predicted [Volume Rate/Area] in Serum, Plasma or Blood by Creatinine-based formula (CKD-EPI) 06/11/2024 13:36:56 >90 >=60 (mL/min) Final eGFR is calculated based on the CKD-EPI 2020 equation. Sodium 06/11/2024 13:36:56 127 Below low normal 135 -146 (mmol/L) Final Potassium 06/11/2024 13:36:56 3.1 Below low normal 3.5 -5.1 (mmol/L) Final Cl 06/11/2024 13:36:56 87 Below low normal 98- 107 (mmol/L) Final CO2 06/11/2024 13:36:56 26 22-32 (mmo l/L) Final Anion gap 06/11/2024 13:36:56 14 7-15 (mmol /L) Final Glucose 06/11/2024 13:36:56 175 Above high normal 70 -120 (mg/dL) Final Albumin 06/11/2024 13:36:56 4.3 3.8-5.0 (g /dL) Final AST (Aspartate aminotransferase) 06/11/2024 13:36:56 36 Above high normal 10-35 (U/L) Final Alk Phos 06/11/2024 13:36:56 80 35-130 (U/ L) Final Bilirubin, Total 06/11/2024 13:36:56 0.5 <=1 .2 (mg/dL) Final Calcium 06/11/2024 13:36:56 10.3 Above high normal 8. 4-10.2 (mg/dL) Final Protein 06/11/2024 13:36:56 7.7 6.0-8.3 (g /dL) Final ALT (Alanine aminotransferase) 06/11/2024 13:36:56 31 10-35 (U/L) Neo mann Performing Location [facility] [address] [place] [address]
--- OUTSIDE RECORDS SUMMARY | 2024-06-12 02:16 | External Medical Summary | Summary of Care ---
Author Name Unknown Organization [facility] Address [address] [place] [address] Phone [phone] Care Team Providers Care Neurology Teacher Name Role Phone Edel Clay MD Primary Care Provide r Reason for Visit * Reason Comments Chemotherapy C7 D8 Tecentriq * Episode Based Medications (Routine) - Authorized Specialty Diagnoses / Procedures Referred By Contac t Referred To Contact Diagnoses Encounter for antineoplastic chemotherapy Cancer, metastatic to bone (HCC) Metastatic adenocarcinoma to liver (HCC) Small cell lung cancer, right (HCC) Procedures MD CARBOPLATIN INJECTION MD FOSAPREPITANT INJECTION MD ETOPOSIDE 10 MG INJ MD INJ, ATEZOLIZUMAB,10 MG MD INJECTION, Monica Anderson MD Hematology/Oncology Treatment, [address] [address] Phone: tel: fax: Referral ID Status Reason Start Date Expiration Date V isits Requested Visits Authorized [id number] Authorized 12/17/2023 06/13/[phone] Encounter Details Date Type Department Care Team (Latest Contact Info) Description 05/20/2024 1:00 PM EST Hem/Onc Treatment Hematology/Oncolog y Treatment, [address] [phone] [place], Chair 5 Hem On[address] [place] [address] Encounter for antineoplastic chemotherapy*; Cancer, metastatic [...] as of this encounter (statuses as of 05/20/2024) Medications OMEGA-3 FATTY ACIDS 1000 MG PO CAPS 0 07/23/19 07 Active Orencia 125 MG/ML Subcutaneous Solution Prefilled Syringe (Abatacept)Indicat ions:Rheumatoid arthritis involving multiple sites with positive rheumatoid factor ([facility]) INJECT 125 MG ( ONE SYRINGE [...] as of this encounter (statuses as of 05/20/2024) Active Problems Problem Noted Date Diagnosed Date [...] as of this encounter (statuses as of 05/20/2024) Resolved Problems Problem Noted Date Diagnosed Date [...] 07/18/2008 06/01/2019 Overview (07/31/2009): thyroglobulin antibody >3000 [id number] 08/19/200608/10 Overview (08/25/2009): Renamed Per Clinical Trials Billing Project. Pt is a participant in the [facility] (Consortium of Rheumatology Researchers of [place]) national data collection study. For further information please call Dr Temo Castaneda or Kim Ríos, RN, CCRC at [phone] [facility] RESEARCH OTHER*[id number] 08/19/2006 11/06/2009 Overview (08/25/2009): Renamed Per Clinical Trials Billing Project. Pt is a participant in the [facility] (Consortium of Rheumatology Researchers of [place]) national data collection study. For further information please call Dr Temo Castaneda or Kim Ríos, RN, CCRC at [phone] Arthritis, rheumatoid 07/01/20062016 Abnormal blood chemistry 05/02/2006 [...] as of this encounter (statuses as of 05/20/2024) Immunizations Name Administration Dates Next Due COVID-19 [...] Description 06/04/2024 1:15 PM EST Imaging Radiology [address] [facility] [address] 06/07/2024 1:00 PM EST Appointment Radiology, [facility] [address] [place] [address] 06/09/2024 10:30 AM EST Office Visit Hematology/Oncology [facility] [address] [facility] [place] [phone] Sukhjinder Faria MD [address] [facility] [place] [address] 07/14/2024 3:00 PM EST Office Visit Pulmonary Medicine, [facility] [address] [facility] [place] [address] Eloy Pond MD [address] [facility] [place] [address] 09/13/2024 3:00 PM EDT Office Visit Rheumatology [address] [place] [phone] Maile Wallace CRNP [address] [place] [address] [place], [place] [address] Health Maintenance Due Date Last Done Comments [...] 09/11/2024 09/12/2023, 08/11, 08/29/2020, Additional history exists TSH 04/29/2025 04/29/2024, 03/13, 03/15/2024, Additional history exists Lipid Panel 05/19/2025 05/19/2020, 05/13, 03/07/2017, Additional history exists Pneumococcal Vaccine: 50+ Years (4 of 4 - PCV20 or PCV21) 05/19/2025 05/19/2020, 10/29/2011, 10/25/2011, Additional history exists DTap/Tdap Vaccines (4 - [...] this encounter Medical Devices Implanted Type Area Luggage Maker Device Identifier Shelf Expiration Date Model / Serial / Lot Port Implant W8f Poly Cath - [id number] Implanted:Qty : 1 on 12/31/2023 by Sin Burroughs MD at OR [facility] Right: Chest CR BARD : PERIPHERAL VASCULAR [id number] 10/09/2024 [id number] / / [id number] documented as of this encounter Visit Diagnoses Diagnosis Encounter for antineoplastic chemotherapy- Primary Cancer, metastatic to bone (HCC) Secondary malignant neoplasm of bone and bone marrow Metastatic adenocarcinoma to liver (HCC) Secondary malignant neoplasm of liver Small cell lung cancer, right (HCC) documented in this encounter Administered Medications Active Administered Medications - up to 3 most recent administrations Medication Order MAR Action Action Date Dose Rate Site diphenhydrAMINE (Benadryl) inj 50 mg 50 mg, IV Push, ONCE PRN Other, Hypersensitivity Reaction, Starting on Fri05/20/24 at 1329, Until Fri05/21/24 at 1328, For 24 hoursIndications:Encounter for antineoplastic chemotherapy,Cancer, metastatic to bone (HCC),Metastatic adenocarcinoma to liver (HCC),Small cell lung cancer, right (HCC) EPINEPHrine 1 MG/ML inj 0.3 mg 0.3 mg, Intramuscular, ONCE PRN Other, Hypersensitivity Reaction or Anaphylaxis, Starting on Fri05/20/24 at 1329, Until Fri05/21/24 at 1328, For 24 hoursIndications:Encounter for antineoplastic chemotherapy,Cancer, metastatic to bone (HCC),Metastatic adenocarcinoma to liver (HCC),Small cell lung cancer, right (HCC) hEParin 100 UNIT/ML Lock Flush inj 500 Units 500 Units (5 mL), IV Lock, PRN Other, IV Flush, Starting on Fri05/20/24 at 1329, Until Fri05/21/24 at 1328, For 24 hours, Do not flush if lock, PICC, or central line not in place; IV infusing or unable to flush.Indications:Encounter for antineoplastic chemotherapy,Cancer, metastatic to bone (HCC),Metastatic adenocarcinoma to liver (HCC),Small cell lung cancer, right (HCC) Given 05/20/2024 3:04 PM EST 500 Units Hydrocortisone Sod Suc (PF) (Solu-Cortef) inj 100 mg 100 mg, IV Push, ONCE PRN Other, Hypersensitivity Reaction, Starting on Fri05/20/24 at 1329, Until Fri05/21/24 at 1328, For 24 hoursIndications:Encounter for antineoplastic chemotherapy,Cancer, metastatic to bone (HCC),Metastatic adenocarcinoma to liver (HCC),Small cell lung cancer, right (HCC) NSS infusion Intravenous, at 50 mL/hr, PRN, Starting on Fri05/20/24 at 1430, Until Discontinued, Maintenance lineIndications:Encounter for antineoplastic chemotherapy,Cancer, metastatic to bone (HCC),Metastatic adenocarcinoma to liver (HCC),Small cell lung cancer, right (HCC) Start Infusion 05/20/2024 1:51 PM EST 50 mL/hr oxygen GAS Inhalation, OXYGEN, First dose on Fri05/20/24 at 1600, Until Discontinued, Device/Managed by: Low Flow Device, Goal SPO2 (%): 91-95, Starting Device: Nasal Cannula, Initial Flow Rate (LPM): 2, Lowest Support: Nasal Cannula: Flow 0-6 LPM. Titrate up/down by 1 LPM., Higher Support: Non-Rebreather (NRB) Mask: Minimum of 10 LPM. Titrate to maintain bag inflation., Titration Interval: Q2 minutes and as needed., Notify Provider: For sudden DECREASE in resting SPO2 to less than 85% and when escalating delivery device., Wean patient off Oxygen when the oxygen saturation is greater than or equal to 93%Indications:Encounter for antineoplastic chemotherapy,Cancer, metastatic to bone (HCC),Metastatic adenocarcinoma to liver (HCC),Small cell lung cancer, right (HCC) sodium chloride 0.9 % flush central line 10 mL 10 mL, IV Push, PRN Other, IV Flush, Starting on Fri05/20/24 at 1329, Until Fri05/21/24 at 1328, For 24 hours, Do not flush if lock, PICC, or central line not in place; IV infusing or unable to flush.Indications:Encounter for antineoplastic chemotherapy,Cancer, metastatic to bone (HCC),Metastatic adenocarcinoma to liver (HCC),Small cell lung cancer, right (HCC) Given 05/20/2024 3:04 PM EST 10 mL Inactive Administered Medications - up to 3 [...] 2:29 PM EST 1,200 mg 550 mL/hr documented in this encounter Care Teams Neurology Teacher Relationship Specialty Start Date End Date Edel Clay MD [address] [place] [address] [place] [address] PCP - General Family Medicine 03/03/17 documented as of this encounter
--- OUTSIDE RECORDS SUMMARY | 2024-06-12 02:16 | External Medical Summary | Summary of Care ---
Author Name Unknown Organization [facility] Address [address] [place] [address] Phone [phone] Care Team Providers Care Advertising Job Titles Name Role Phone Edel Clay MD Primary Care Provide r Reason for Visit * Reason Comments Outpatient Testing Encounter Details Date Type Department Care Team (Late st Contact Info) Description 05/20/2024 11:30 AM EST Laboratory Laboratory [facility] [address] [place] [address] [facility] Lab Scenery [address] [place] [address] Metastatic adenocarcinoma to liver (HCC); Small cell lung cancer, right (HCC); Cancer, metastatic to bone (HCC) Allergies Active Allergy Reactions Criticality Noted [...] THE SKIN ONCE A WEEK 4 mL 12/26/19 23 Active Additional Information Patient not taking.Reported on 05/14/2024 Levothyroxine Sodium 100 MCG Oral Tablet (Levoxyl)Alextio ns:Acquired hypothyroidism Take 1 Tablet by mouth [...] 24 Active OLANZapine 10 MG Oral Tablet (zyPREXA)Tinoo ns:Encounter for antineoplastic chemotherapy,Cance r, metastatic to [...] 07/18/2008 06/01/2019 Overview (07/31/2009): thyroglobulin antibody >3000 [id number] 08/19/200608/10 Overview (08/25/2009): Renamed Per Clinical Trials Billing Project. Pt is a participant in the [employer] ([employer]ortium of [employer] Researchers of [place]) national data collection study. For further information please call Dr Temo Castaneda or Kim Ríos, RN, CCRC at [phone] [employer] RESEARCH OTHER*[id number] 08/19/2006 11/06/2009 Overview (08/25/2009): Renamed Per Clinical Trials Billing Project. Pt is a participant in the [employer] ([employer]ortium of Rhe[employer]ology Researchers of [place]) national data collection study. For further information please call Dr Temo Castaneda or Kim Ríos RN, CCRC at [phone] Arthritis, rheumatoid 07/01/20062016 Abnormal blood chemistry 05/02/2006 [...] on file documented as of this encounter Plan of Treatment Upcoming Encounters Date Type Department Care Team (Late st Contact Info) Description 05/20/2024 12:30 PM EST Office Visit Hematology/Oncology [facility] [place] [address] [place] [address] [place] [phone] Sukhjinder Faria MD [address] [place] [address] [address] 05/20/2024 1:00 PM EST Hem/Onc Treatment Hematology/Oncology Treatment, [place] [address] [place] [phone] Park, Chair [address] Hem Onc Sc[address]ery [address] [place] [address] Arrived 07/14/2024 3:00 PM EST Office Visit Pulmonary Medicine, [facility] [address] [facility] [place] [address] Eloy Pond MD [address] [place] [address] 09/13/2024 3:00 PM EDT Office Visit Rheumatology [address] [place] [address] Maile Wallace CRNP [address] [facility] [place] [address] Pending Results Name Type Priority Associated Diagnoses Date /Time COMPREHENSIVE METABOLIC PANEL Lab STAT Metastatic adenocarcinoma to liver (HCC) Small cell lung cancer, right (HCC) Cancer, metastatic to bone (HCC) 05/20/2024 11:44 AM EST TSH WITH FREE T4 IF INDICATED Lab STAT Metastatic adenocarcinoma to liver (HCC) Small cell lung cancer, right (HCC) Cancer, metastatic to bone (HCC) 05/20/2024 11:44 AM EST PHOSPHORUS Lab STAT Metastatic adenocarcinoma to liver (HCC) Small cell lung cancer, right (HCC) Cancer, metastatic to bone (HCC) 05/20/2024 11:44 AM EST Health Maintenance Due Date Last Done Comments [...] this encounter Medical Devices Implanted Type Area Industrial Sewer Device Identifier Shelf Expiration Date Model / Serial / Lot Port Implant [id number] Poly Cath - [id number] Implanted:Qty : 1 on 12/31/2023 by Sin Burroughs MD at OR [facility] Right: Chest CR BARD : PERIPHERAL VASCULAR [id number] 10/09/2024 [id number] / / [id number] documented as of this encounter Procedures Procedure Name Priority Date/Time Associated Diagnosis Comments DIFFERENTIAL, AUTOMATED STAT 05/20/2024 11:44 AM EST Metastatic adenocarcinoma to liver (HCC) Small cell lung cancer, right (HCC) Cancer, metastatic to bone (HCC) CBC STAT 05/20/2024 11:44 AM EST Metastatic adenocarcinoma to liver (HCC) Small cell lung cancer, right (HCC) Cancer, metastatic to bone (HCC) CBC STAT 05/20/2024 11:44 AM EST Metastatic adenocarcinoma to liver (HCC) Small cell lung cancer, right (HCC) Cancer, metastatic to bone (HCC) documented in this encounter Results * DIFFERENTIAL, AUTOMATED (05/20/2024 11:44 AM EST) WBC 8.86 4.00 - 10.80 K/uL 05/20/2024 11:52 AM EST [employer] [facility] [place] 56-02 Neutrophils % 70.1 40.0 - 75.0 % 05/20/2024 11:52 AM EST [facility] [place] 56-02 Lymphocytes % 22.0 18.0 - 42.0 % 05/20/2024 11:52 AM EST [employer] [place] 56-02 Monocytes % 7.0 1.0 - 11.0 % 05/20/2024 11:52 AM [facility] [place] 56-02 Eosinophils % 0.6 0.0 - 6.0 % 05/20/2024 11:52 AM EST [facility] [place] 56-02 Basophils % 0.3 0.0 - 2.0 % 05/20/2024 11:52 AM EST LABORATORY [facility] [place] 56-02 Absolute Neutrophils 6.21 1.80 - 7.70 K/uL 05/20/2024 11:52 AM EST [employer] [place] 56-02 Absolute Lymphocytes 1.95 1.00 - 4.80 K/ul 05/20/2024 11:52 AM [facility] [place] 56-02 Absolute Monocytes 0.62 0.00 - 1.10 K/uL 05/20/2024 11:52 AM EST [facility] [place] 56-02 Absolute Eosinophils 0.05 0.00 - 0.70 K/uL 05/20/2024 11:52 AM EST [employer] [facility] [place] 56-02 Absolute Basophils 0.03 0.00 - 0.20 K/uL 05/20/2024 11:52 AM [facility] [place] 56-02 Blood Venous blood specimen / Unknown Venipuncture / Unknown 05/20/2024 11:44 AM EST 05/20/2024 11:44 AM EST us Sukhjinder Faria MD LAB BLOOD ORDERABLES Final Res ult [facility] 56-02 [address] [place] [address] * CBC (05/20/2024 11:44 AM EST) WBC 8.86 4.00 - 10.80 K/uL 05/20/2024 11:52 AM [facility] 56 RBC 3.79 3.85 - 5.15 M/uL 05/20/2024 11:52 AM [facility] 5602 HGB 12.3 12.0 - 15.3 g/dL 05/20/2024 11:52 AM [facility] 56 HCT 38.5 36.0 - 45.2 % 05/20/2024 11:52 AM [facility] 5602 MCV 101.6 81.5 - 97.5 fL 05/20/2024 11:52 AM [facility] 5602 MCH 32.5 27.0 - 34.0 pg 05/20/2024 11:52 AM [facility] 5602 MCHC 31.9 32.0 - 36.0 g/dL 05/20/2024 11:52 AM [facility] 5602 RDW 14.2 11.5 - 15.5 % 05/20/2024 11:52 AM [facility] 5602 PLT 287 140 - 400 K/uL 05/20/2024 11:52 AM [facility] 5602 MPV 8.6 6.6 - 11.1 fL 05/20/2024 11:52 AM [facility] 5602 Blood Venous blood specimen / Unknown Venipuncture / Unknown 05/20/2024 11:44 AM EST 05/20/2024 11:44 AM EST us Sukhjinder Faria MD LAB BLOOD ORDERABLES Final Res ult [facility] 56- [address] [place] [address] documented in this encounter Visit Diagnoses Diagnosis Metastatic adenocarcinoma to liver (HCC) Secondary malignant neoplasm of liver Small cell lung cancer, right (HCC) Cancer, metastatic to bone (HCC) Secondary malignant neoplasm of bone and bone marrow documented in this encounter Care Teams Advertising Job Titles Relationship Specialty Start Date End Date Edel Clay MD [address] [place] [address] [place] [address] PCP - General Family Medicine 03/03/17 documented as of this encounter
--- OUTSIDE RECORDS SUMMARY | 2024-06-12 02:16 | External Medical Summary | Summary of Care ---
Author Name Unknown Organization [facility] Address [address] [place] [address] Phone [phone] Care Team Providers Care Optical Lens Manufacturing Tech Name Role Phone Edel Clay MD Primary Care Provide r Reason for Referral * Precert (Within 10 days (routine)) - Pending Review Specialty Diagnoses / Procedures Referred By Contac t Referred To Contact Radiology Diagnoses Small cell lung cancer, right (HCC) Cancer, metastatic to bone (HCC) Metastasis to liver (HCC) Procedures MRI LIVER W WO CONTRAST Sukhjinder Faria MD [address] [facility] [place] [address] Phone: tel: fax: Referral ID Status Reason Start Date Expiration Date V isits Requested Visits Authorized [id number] Pending Review 05/27/2024 999 999 * Precert (Within 10 days (routine)) - Pending Review Specialty Diagnoses / Procedures Referred By Contac t Referred To Contact Radiology Diagnoses Small cell lung cancer, right (HCC) Cancer, metastatic to bone (HCC) Metastasis to liver (HCC) Procedures CT CHEST W CONTRAST Sukhjinder Faria MD [address] [facility] [place] [address] Phone: tel: fax: Referral ID Status Reason Start Date Expiration Date V isits Requested Visits Authorized [id number] Pending Review 05/20/2024 999 [id number] Reason for Visit * Reason Comments Infusion Encounter Details Date Type Department Care Team (Late st Contact Info) Description 05/20/2024 12:30 PM EST Office Visit Hematology/Oncology [place] [facility] [place] [address] [facility] [place] [address] Sukhjinder Faria MD [address] [facility] [place] [address] Small cell lung cancer, right (HCC)*; Cancer, metastatic to bone (HCC); Metastasis to liver (HCC) Allergies Active Allergy Reactions Criticality Noted [...] 07/18/2008 06/01/2019 Overview (07/31/2009): thyroglobulin antibody >3000 [id number] 08/19/200608/10 Overview (08/25/2009): Renamed Per Clinical Trials Billing Project. Pt is a participant in the [facility] (Consortium of Rheumatology Researchers of [place]) national data collection study. For further information please call Dr Temo Castaneda or Kim Ríos, RN, CCRC at [phone] [facility] RESEARCH OTHER*[id number] 08/19/2006 11/06/2009 Overview (08/25/2009): Renamed Per Clinical Trials Billing Project. Pt is a participant in the [facility] (Consortium of Rheumatology Researchers of [place]) national data collection study. For further information please call Dr Temo Castaneda or Kim Ríos, RN, CCRC at [phone] Arthritis, rheumatoid 07/01/20062016 Abnormal blood chemistry 05/02/2006 [...] on file documented as of this encounter Last Filed Vital Signs Vital Sign Reading Time Taken Comments Blood Pressure 132/82 05/20/2024 12:03 PM EST Pulse 85 05/20/2024 12:03 PM EST Temperature 36.6 C (97.8 F) 05/20/2024 1 2:03 PM EST Respiratory Rate - - Oxygen Saturation 95% 05/20/2024 12: 03 PM EST Inhaled Oxygen Concentration - - Weight 84.7 kg (186 lb 12.8 oz) 025 12:03 PM EST Height - - Body Mass Index 32.89 01/15/2024 3:20 PM EDT documented in this encounter Progress Notes * Sukhjinder Faria MD - 05/20/2024 12:30 PM EST Hematology/Oncology Outpatient Clinic note Alis Mortensen [address] [place] [address] NAME: Alfredo Torrez :1965 58-year-old female, DIAGNOSIS: - Small-cell lung cancer involving the right lung with metastatic disease involving the bones, liver -no brain metastasis. [id number] CURRENT TREATMENT: Etoposide, carboplatin, atezolizumab x 6 between 12/22/2023-04/07/2024. - Atezolizumab (Tecentriq) maintenance started her on 04/29/2024. 05/20/2023, she will receive atezolizumab maintenance as we planned. Zometa every 6 weekly. ( started on 12/24/2023) DIAGNOSTIC WORKUP: CT chest on 11/20/2023: 1. A right hilar mass measuring approximately 6.8 x 5.0 cm, consistent with malignancy. The mass encases the right mainstem bronchus and bronchus intermedius. Mild narrowing of the right mainstem bronchus and bronchus intermedius noted. 2. A nonspecific borderline enlarged precarinal lymph node measuring 1 cm in short axis. 3. Multiple liver lesions, concerning for metastases. A customer relations representative lesion in the posterior right hepatic lobe measures 3.7 x 2.6 cm. A follow-up CT abdomen and pelvis is suggested for further evaluation. Right upper lobe transbronchial biopsy--> high-grade carcinoma, possible small- cell carcinoma, expression of [id number] variant PET-CT scan done on 12/08/2023: 1. A similar large hypermetabolic right hilar mass with markedly increased FDG uptake, compatible with primary pulmonary malignancy. 2. Multiple hypermetabolic hypodense lesions throughout the liver, compatible with metastatic disease. 3. Multiple hypermetabolic lytic lesions involving bilateral iliac bones, right acetabulum and L4 vertebra, compatible with osseous metastatic disease. 4. Enlarged palatine and lingual tonsils with associated moderately increased FDG uptake, likely representing infectious/inflammatory process OTHER IMPORTANT HISTORY: - she has underlying rheumatoid arthritis, treatment for that was on hold when she was receiving chemotherapy, she says that when she was on the chemotherapy treatment, her symptoms were improved andremained stable without even RA medications but now after stopping chemotherapy does symptoms have come back. Now she is on prednisone 5 mg and sometimes 10 mg per day, she is also on weekly methotrexate which was started about 3 weeks back. INTERVAL HISTORY: She has come the clinic for the follow-up, accompanied by her in the office. Overall she has some musculoskeletal symptoms related underlying RA, she is on prednisone and methotrexate was started recently, no nausea no vomiting, no headache, no new GI symptoms, previously noted side effects of the chemotherapy have improved, current weight around 186 lb, she ambulates well,no focal neurological symptoms, no speech disturbances. No leg edema. Discontinue smoking habit when she was diagnosed with the lung cancer. She continues to work at this time. Past Medical History: Diagnosis Date Abnormal blood chemistry 05/02/06 positive rheumatoid factor. 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, 11 o'clock Obesity, BMI not known Other and unspecified chronic thyroiditis 07/18/08 thyroglobulin antibody >3000 Other specified acquired hypothyroidism 09/2004 Ovarian cyst 11/22/2011 Recurrent acute sinusitis 09/24/2016 Tobacco use disorder Past Surgical History: Procedure Laterality Date BREAST LESION,OTHER,EXCISION Left BENIGN BRONCHOSCOPY, DX W/ EBUS, 1-2 NODES N/A 12/04/2023 BRONCHOSCOPY, RIGID/FLEXIBLE, INCLUDE FLUORO GUIDANCE, WHEN PERFORMED; W/ EBUS GUIDED TRANSTRACH AND/OR TRANSBRONCH SAMPLING, 1 OR 2 MEDIASTINAL AND/OR HILAR LYMPH NODE STATIONS/STRUCTURES performed by Jimmy Fine MD at OR [facility] INSER TUNN ACC DEV;5 YRS/OLDER Right 12/31/2023 INSERT TUNNELED CENTRAL VENOUS ACCESS WITH SUBQ PORT performed by Sin Burroughs MD at OR [facility] MAMMOGRAM SCREENING-BILATERAL 09/09/2007 heterogeneously dense, category 0 REMOVE GALLBLADDER 01/03/2012 Dr Gomez- [facility] US - BREAST(S) 09/23/2007 left breast category 4, FNA suggested US HEAD AND NECK 07/21/2008 mildly enlarged right thyroid, consistent with multinodular goiter US HEAD AND NECK 06/30/2012 asymmetric thyromegaly Current Outpatient Medications Medication Sig Dispense Refill OMEGA-3 FATTY ACIDS 1000 MG PO CAPS 0 Orencia 125 MG/ML Subcutaneous Solution Prefilled Syringe (Abatacept) INJECT 125 MG ( ONE SYRINGE )UNDER THE SKIN ONCE A WEEK (Patient not taking: Reported on 05/14/2024) 4 mL 11 Levothyroxine Sodium 100 MCG Oral Tablet (Levoxyl) Take 1 Tablet by mouth daily first thing in the morning. (at least 30 min prior to breakfast or other meds) 90 Tablet 3 Magic Swizzle (Nndspflbl-Yebqlyyk-Ddquyl) oral solution Swish and spit 15 mL in the morning and 15 mL before bedtime. 120 mL 1 Multivitamins Oral Capsule MULTIVITAMINS ORAL CAPSULE Triamcinolone Acetonide 55 MCG/ACT Nasal Aerosol (Nasacort Allergy 24HR) Ventolin HFA 108 (90 Base) MCG/ACT Inhalation Aerosol Solution Inhale 2 Puffs by mouth every 4 hours as needed for Shortness of Breath. 18 g 11 Prochlorperazine Maleate 10 MG Oral Tablet (Compazine) Take 1 Tablet by mouth every 6 hours as needed for Nausea. 30 Tablet 5 Lidocaine-Prilocaine 2.5-2.5 % External Cream (Emla) APPLY TO SKIN OVER MEDIPORT & COVER 1HR PRIOR TO ACCESSING. 30 g 1 oxyCODONE-Acetaminophen 5-325 MG/5ML Oral Solution (Roxicet) Take by mouth every 4 hours as needed. dexAMETHasone 4 MG Oral Tablet (Decadron) Take 2 Tablets by mouth in the morning. With food on days2, 3, and 4 of chemo.. 12 Tablet 0 OLANZapine 10 MG Oral Tablet (zyPREXA) Take 1 Tablet by mouth at bedtime. On days 1, 2, 3, and 4 ofchemo. 8 Tablet 0 Azelastine HCl 137 MCG/SPRAY Nasal Solution SPRAY 2 SPRAYS INTO EACH NOSTRIL IN THE MORNING AND BEFORE BEDTIME 90 mL 3 LORazepam 0.5 MG Oral Tablet (Ativan) Take 1 Tablet by mouth every 8 hours as needed for Anxiety. 60 Tablet 0 predniSONE 5 MG Oral Tablet (Deltasone) Take 1 to 2 tabs a day as needed for RA flare 60 Tablet 2 Folic Acid 1 MG Oral Tablet Take 1 Tablet by mouth in the morning. 90 Tablet 1 Methotrexate Sodium 2.5 MG Oral Tablet TAKE 6 TABLETS BY MOUTH ONE TIME PER WEEK 78 Tablet 1 Current Facility-Administered Medications Medication Dose Route Frequency Provider Last Rate Last Admin Albuterol Sulfate (Proventil) (2.5 MG/3ML) 0.083% inhalation solution 2.5 mg 2.5 mg Nebulizer PRN 2.5 mg at 01/15/24 1445 Albuterol Sulfate (Proventil) (5 MG/ML) 0.5% *conc* inhalation solution 2.5 mg 2.5 mg Nebulizer PRN Family History Problem Relation Name Age of Onset Diabetes Mother Stroke Mother Allergies Mother chronic rhinitis Other (stroke) Mother Heart Disorder Father Heart Disorder Aunt (Unspecified) Endocrine Disorder Grandmother (Maternal) Thyroid Disorder Grandmother (Maternal) Heart Disorder Grandmother (Paternal) Heart Disorder Grandfather (Paternal) Breast Cancer No significant family history Social History Socioeconomic History Marital status: Spouse name: Margarito Number of children: 1 Years of education: Not on file Highest education level: Not on file Occupational History Employer: [employer] Tobacco Use Smoking status: Every Day Types: Vaporizer Smokeless tobacco: Never Vaping Use Vaping status: Every Day Substance and Sexual Activity Alcohol use: Yes Comment: ocas Drug use: No Sexual activity: Yes Partners: Male Comment: had vas, then reversal but did not work Other Topics Concern Not on file Social History Narrative Not on file Social Needs Financial Resource Strain: Not on file Food Insecurity: No Food Insecurity (03/09/2019) Hunger Vital Sign Worried About Running Out of Food in the Last Year: Never true Ran Out of Food in the Last Year: Never true Transportation Needs: Not on file Social Connections: Not on file Housing Stability: Not on file On exam: LMP 09/07/2015 (Approximate) BP 132/82 (BP Site: Left Arm, BP Position: Sitting, BP Cuff Size: Large) | Pulse 85 | Temp 36.6 C(97.8 F) (Tympanic) | Wt 84.7 kg (186 lb 12.8 oz) | LMP 09/07/2015 (Approximate) | SpO2 95% | BMI32.89 kg/m | BSA 1.94 m Constitutional: Patient is alert, cooperative and oriented x 3. Well built woman, Patient is in no acute distress. HEENT: No icterus, no pallor, Throat and pharynx normal. Sinuses are non-tender. Neck: Supple and without lymphadenopathy or masses. No JVD. No Palpable supraclavicular lymph nodes. Lungs: Clear to auscultation. Bilateral symmetric air entry. No wheezing or rhonchi. Cardiovascular: Normal heart sounds, no murmurs.Regular rate and rhythm. Abdomen: soft, nontender, no hepatomegaly, no splenomegaly. Bowel sounds are normal. Neurological: No gross focal neurological deficit; walks with a normal gait. Extremities: No finger clubbing, No cyanosis. No leg edema. Skin:: No skin rash. SPINE: No spinal or paraspinal tenderness. LABS: Blood workup done on 05/20/2024: -WBC 8800, Hemoglobin and hematocrit -12.3/38.5, Platelet count of 432332 -BUN/Creat: 12/0.8, normal LFT, Calcium 9.9. IMAGING: PET-CT scan done on 02/17/2024: 1. Decreased size and FDG activity in the right perihilar lung mass as above. 2. Single subtle focus remaining in the posterior margin of the liver with resolution of other metastatic hepatic lesions as above. 3. Stable appearance of previously noted osseous metastatic foci. PET-CT scan done on 04/26/2024: - Similar size of a 2.0 x 4.0 cm (previously 1.9 x 4.4 cm) right hilar mass with slightly increasedmetabolic activity, SUV 9.8 ( previously 8.9) - multiple new small foci of increased metabolic activity throughout the liver, concerning for new metastatic lesions. An example lesion is seen in the caudate lobe with an SUV 3.7. These are not well seen on the noncontrast CT. - hypermetabolic lytic lesions in the L4 vertebral body and pelvis. Brain MRI on 04/29/2024: 1. Acute infarct (10 mm) in the right basal ganglia. No hemorrhagic transformation. 2. Moderately extensive chronic small vessel ischemic changes in the cerebral white matter bilaterally. 3. No evidence of cerebral metastatic disease. 4. There is prominent lymphoid enlargement involving the bilateral soft palate and bilateral palatine tonsils extending into the vallecula, concerning for malignancy. Consider ENT consult for furtherassessment and biopsy, if not already in place. ASSESSMENT AND PLAN: 58-year-old female, a case of small-cell lung cancer involving the right lung with right hilar mass, metastatic disease involving the liver and the multiple bones, - [id number] subtype of small-cell lung cancer. She received 6 cycles of carboplatin, etoposide, atezolizumab between December 2023 - late March 2024. So far she had a 3 PET-CT scans, I reviewed with her and her regarding the imaging studies,reviewed the latest imaging study done in mid- April 2024 which shows similar size of right hilar mass measuring about 2 x 4 cm with SUV of 9.8, multiple foci of increased uptake in the throughoutthe liver concerning for new metastatic disease. Now she was started on atezolizumab maintenance, today she is here for another atezolizumab maintenance. I reviewed with her and her regarding the diagnostic workup, treatment that she received, she has underlying rheumatoid arthritis, treatment for the RA was on hold when she was receiving chemotherapy but now she is on immunotherapy alone and so she is on prednisone and methotrexate. I reviewed her blood workup done today, overall normal blood count, normal liver function test. I would like to get liver MRI for further evaluation of the liver lesions. She still has metabolic active 4 cm mass in the right hilar region and I am concerned about diseaseprogression with immunotherapy alone. I would like to get CT chest in about 2 weeks. We talked about overall treatment goal which would be palliative and not curative. Will continue Zometa every 6 weekly as we planned. I am planning to see her in about [address] Sukhjinder Faria Hem/Onc (This note was completed using the dictation program Fluency Direct. As such, there may be misspellings word substitutions, or other variations that should not change the essence of the clinical content of this encounter note. If there is need for further clarification, please direct questions to the provider listed above.) documented in this encounter Nursing Notes * Diya Raza, DENY ASSIST - 05/20/2024 12:05 PM EST Patient identifed by name and birthdate Do you have any concerns about pain management for today's visit? Yes. Patient instructed to discuss pain concerns with provider during the visit today Living Will or Advance Directive for Health Care as noted on the problem list. [facility] is a way you can talk to your provider on line through e-mail. Would you like to sign up? I can activate it for you? ALREADY ACTIVE Filed Vitals: 05/20/24 1203 BP: 132/82 Pulse: 85 Temp: 36.6 C (97.8 F) TempSrc: Tympanic SpO2: 95% Weight: 84.7 kg (186 lb 12.8 oz) Patient was instructed to not get up on the exam table/exam chair until directed and assisted by their provider; patient is to remain seated in the chair/ wheelchair/ exam table/ exam chair for fall prevention and safety reasons. Patient is aware to have assistance to step down off exam table/exam chair with personnel. Patient voiced full comprehension of instructions. documented in this encounter Plan of Treatment Upcoming Encounters Date Type Department Care Team (Late st Contact Info) Description 06/04/2024 1:15 PM EST Imaging Radiology [address] [facility] [place] [address] 06/07/2024 1:00 PM EST Appointment Radiology, [address] [place] [address] 06/09/2024 10:30 AM EST Office Visit Hematology/Oncology [facility] [address] [place] [address] Sukhjinder Faria MD [address] [place] [address] 07/14/2024 3:00 PM EST Office Visit Pulmonary Medicine, [facility] [address] [facility] [place] [address] Eloy Pond MD [address] [place] [address] 09/13/2024 3:00 PM EDT Office Visit Rheumatology [address] [place] [phone] Maile Wallace CRNP [address] [facility] [place] [address] Scheduled Orders Name Type Priority Associated Diagnoses Orde r Schedule CT CHEST W CONTRAST Medical Imaging Routine Small cell lung cancer, right (HCC) Cancer, metastatic to bone (HCC) Metastasis to liver (HCC) Expected: 05/20/2024, Expires: 05/20/2025 MRI LIVER W WO CONTRAST Medical Imaging Routine Small cell lung cancer, right (HCC) Cancer, metastatic to bone (HCC) Metastasis to liver (HCC) Expected: 05/27/2024, Expires: 06/20/2025 Health Maintenance Due Date Last Done Comments [...] this encounter Medical Devices Implanted Type Area City Tax Auditor Device Identifier Shelf Expiration Date Model / Serial / Lot Port Implant W8f Poly Cath - [id number] Implanted:Qty : 1 on 12/31/2023 by Sin Burroughs MD at [facility] Right: Chest CR BARD : PERIPHERAL VASCULAR [id number] 10/09/2024 [id number] / / [id number] documented as of this encounter Visit Diagnoses Diagnosis Small cell lung cancer, right (HCC)- Primary Cancer, metastatic to bone (HCC) Secondary malignant neoplasm of bone and bone marrow Metastasis to liver (HCC) Secondary malignant neoplasm of liver documented in this encounter Care Teams Optical Lens Manufacturing Tech Relationship Specialty Start Date End Date Edel Clay MD [address] [place] [address] [place] [address] PCP - General Family Medicine 03/03/17 documented as of this encounter
--- OUTSIDE RECORDS SUMMARY | 2024-06-12 02:16 | External Medical Summary ---
Author Name Unknown Address Unknown Organization K09:[facility] [place] [address] Laboratory Report Ordering Provider Test Date Status JUAQUIN JOHNSON 05/20/2024 11:44:27 Final Observation Date Value Abnormality Reference (Units ) Status WBC, Total 05/20/2024 11:44:27 8.86 4.00-10.8 0 (K/uL) Final RBC 05/20/2024 11:44:27 3.79 3.85-5.15 (M/uL) Final Hemoglobin 05/20/2024 11:44:27 12.3 12.0-15.3 (g/dL) Final HCT 05/20/2024 11:44:27 38.5 36.0-45.2 (%) Final MCV 05/20/2024 11:44:27 101.6 81.5-97.5 (fL) Final MCH 05/20/2024 11:44:27 32.5 27.0-34.0 (pg) Final MCHC 05/20/2024 11:44:27 31.9 32.0-36.0 (g/dL) Final RDW 05/20/2024 11:44:27 14.2 11.5-15.5 (%) Final Platelets 05/20/2024 11:44:27 287 140-400 (K /uL) Final MPV 05/20/2024 11:44:27 8.6 6.6-11.1 ( fL) Final Performing Location [facility] [place] [address]
--- OUTSIDE RECORDS SUMMARY | 2024-06-12 02:16 | External Medical Summary ---
Author Name Unknown Address Unknown Organization K09:[facility] [address] Laboratory Report Ordering Provider Test Date Status JUAQUIN JOHNSON 05/20/2024 11:44:27 Final Observation Date Value Abnormality Reference (Units ) Status Phosphate 05/20/2024 11:44:27 3.2 2.5-4.8 (m g/dL) Final Performing Location [facility] [place] [address]
--- OUTSIDE RECORDS SUMMARY | 2024-06-12 02:16 | External Medical Summary | Summary of Care ---
Author Name Unknown Organization [facility] Address [address] [place] [address] Phone [phone] Care Team Providers Care Garden Center Manager Name Role Phone Edel Clay MD Primary Care Provide r Reason for Visit * Reason Comments Chemotherapy Tecentriq * Episode Based Medications (Routine) - Authorized Specialty Diagnoses / Procedures Referred By Contac t Referred To Contact Diagnoses Encounter for antineoplastic chemotherapy Cancer, metastatic to bone (HCC) Metastatic adenocarcinoma to liver (HCC) Small cell lung cancer, right (HCC) Procedures IN CARBOPLATIN INJECTION IN FOSAPREPITANT INJECTION IN ETOPOSIDE 10 MG INJ IN INJ, ATEZOLIZUMAB,10 MG IN INJECTION, Monica Anderson MD Hematology/Oncology Treatment, [address] [address] Phone: tel: fax: Referral ID Status Reason Start Date Expiration Date V isits Requested Visits Authorized [id number] Authorized 12/17/2023 06/13/[phone] Encounter Details Date Type Department Care Team (Latest Contact Info) Description 04/29/2024 11:00 AM EST Hem/Onc Treatment Hematology/Oncolog y Treatment, [address] [address] [place], Chair 2 Hem Onc [address] [address] Encounter for antineoplastic chemotherapy*; Cancer, [...] 07/18/2008 06/01/2019 Overview (07/31/2009): thyroglobulin antibody >3000 [id number] 08/19/200608/10 Overview (08/25/2009): Renamed Per Clinical Trials Billing Project. Pt is a participant in the [facility] (Consortium of Rheumatology Researchers of [place]) national data collection study. For further information please call Dr Temo Castaneda or Kim Ríos, RN, CCRC at [phone] [facility] OTHER*[id number] 08/19/2006 11/06/2009 Overview (08/25/2009): Renamed Per Clinical Trials Billing Project. Pt is a participant in the [facility] (Consortium of Rheumatology Researchers of [place]) national data collection study. For further information please call Dr Temo Castaneda or Kim Ríos, RN, CCRC at [phone] Arthritis, rheumatoid 07/01/20062016 Abnormal blood chemistry 05/02/2006 [...] Description 06/04/2024 1:15 PM EST Imaging Radiology [address] 132 [facility] [place] [address] 06/07/2024 1:00 PM EST Appointment Radiology, [address] [place] [address] 06/09/2024 10:30 AM EST [facility] [place] [address] [facility] [place] [phone] Sukhjinder Faria MD [address] [facility] [place] [address] 07/14/2024 3:00 PM EST Office Visit Pulmonary Medicine, [facility] [address] [place] [address] Eloy Pond MD [address] [place] [address] 09/13/2024 3:00 PM EDT Office Visit Rheumatology [address] [place] [phone] Maile Wallace CRNP [address] [place], [place] [address] Health Maintenance Due Date Last Done Comments [...] this encounter Medical Devices Implanted Type Area Layer Up Device Identifier Shelf Expiration Date Model / Serial / Lot Port Implant W8f Poly Cath - [id number] Implanted:Qty : 1 on 12/31/2023 by Sin Burroughs MD at OR [facility] Right: Chest CR BARD : PERIPHERAL VASCULAR [id number] 10/09/2024 [id number] / / [id number] documented as of this encounter Visit Diagnoses [...] mL/hr documented in this encounter Care Teams Garden Center Manager Relationship Specialty Start Date End Date Edel Clay MD [address] [place] [address] [place] [address] PCP - General Family Medicine 03/03/17 documented as of this encounter
--- OUTSIDE RECORDS SUMMARY | 2024-06-12 02:16 | External Medical Summary ---
Author Name Unknown Address Unknown Organization K01:LABORATORY [facility] [place] - [address] [place] [address] Laboratory Report Ordering Provider Test Date Status JUAQUIN JOHNSON 05/20/2024 11:44:27 Final Observation Date Value Abnormality Reference (Units ) Status TSH 05/20/2024 11:44:27 3.28 0.27-4.20 (uIU/mL) Final Performing Location LABORATORY [facility] - [address] [facility] [address]
--- OUTSIDE RECORDS SUMMARY | 2024-06-12 02:16 | External Medical Summary ---
Author Name Unknown Address Unknown Organization K09:[facility] [place] [address] Laboratory Report Ordering Provider Test Date Status JUAQUIN JOHNSON 05/20/2024 11:44:27 Final Observation Date Value Abnormality Reference (Units ) Status SYNC LEUKOCYTES IN BLOOD BY AUTOMATED COUNT 05/20/2024 11:44:27 8.86 4.00-10.80 (K/uL) Final Segs 05/20/2024 11:44:27 70.1 40.0-75.0 (%) Final Lymphs % 05/20/2024 11:44:27 22.0 18.0-42.0 (%) Final Monos 05/20/2024 11:44:27 7.0 1.0-11.0 (%) Final Eosinophils 05/20/2024 11:44:27 0.6 0.0-6.0 (%) Final Basos 05/20/2024 11:44:27 0.3 0.0-2.0 (%) Final Absolute Segs 05/20/2024 11:44:27 6.21 1.80-7.70 (K/uL) Final Lymphs, absolute 05/20/2024 11:44:27 1.95 1.00-4.80 (K/ul) Final Monos, Abs 05/20/2024 11:44:27 0.62 0.00-1.10 (K/uL) Final Eos, Abs 05/20/2024 11:44:27 0.05 0.00-0.70 (K/uL) Final Basos, Abs 05/20/2024 11:44:27 0.03 0.00-0.20 (K/uL) Final Performing Location [facility] [place] [address]
--- OUTSIDE RECORDS SUMMARY | 2024-06-12 02:16 | External Medical Summary ---
Author Name Unknown Address Unknown Organization K09:LABORATORY [facility] [address] [place] [address] Laboratory Report Ordering Provider Test Date Status JUAQUIN JOHNSON 05/20/2024 11:44:27 Final Observation Date Value Abnormality Reference (Units ) Status BUN 05/20/2024 11:44:27 12 6-20 (mg/dL) Final Creatinine 05/20/2024 11:44:27 0.8 0.5-1.0 (mg/dL) Final Glomerular filtration rate/1.73 sq M.predicted [Volume Rate/Area] in Serum, Plasma or Blood by Creatinine-based formula (CKD-EPI) 05/20/2024 11:44:27 85 >=60 (mL/min) Final eGFR is calculated based on the CKD-EPI 2020 equation. Sodium 05/20/2024 11:44:27 140 135-146 (m mol/L) Final Potassium 05/20/2024 11:44:27 3.7 3.5-5.1 (m mol/L) Final Cl 05/20/2024 11:44:27 104 98-107 (mm ol/L) Final CO2 05/20/2024 11:44:27 25 22-32 (mmo l/L) Final Anion gap 05/20/2024 11:44:27 11 7-15 (mmol /L) Final Glucose 05/20/2024 11:44:27 110 70-120 (mg /dL) Final Albumin 05/20/2024 11:44:27 4.1 3.8-5.0 (g /dL) Final AST (Aspartate aminotransferase) 05/20/2024 11:44:27 24 10-35 (U/L) Final Alk Phos 05/20/2024 11:44:27 81 35-130 (U/ L) Final Bilirubin, Total 05/20/2024 11:44:27 0.3 <=1 .2 (mg/dL) Final Calcium 05/20/2024 11:44:27 9.9 8.4-10.2 ( mg/dL) Final Protein 05/20/2024 11:44:27 7.6 6.0-8.3 (g /dL) Final ALT (Alanine aminotransferase) 05/20/2024 11:44:27 16 10-35 (U/L) Final Performing Location LABORATORY [facility] [address] [place] [address]
--- OUTSIDE RECORDS SUMMARY | 2024-06-12 02:17 | External Medical Summary | Summary of Care ---
Author Name Unknown Organization [facility] Address [address] [place] [address] Phone [phone] Care Team Providers Care Vinyl Installer Name Role Phone Edel Clay MD Primary Care Provide r Reason for Visit * Reason Comments Rheum Follow Up Follow up - RA Encounter Details Date Type Department Care Team (Late st Contact Info) Description 05/14/2024 1:40 PM EST Office Visit Rheumatology [address] [place] [phone] Samy Russo MD [address] [facility] [place] [address] Rheumatoid arthritis involving multiple sites with positive rheumatoid factor (HCC)*; Small cell lung cancer, right (HCC); Encounter for long-term (current) use of medications Allergies Active Allergy Reactions Criticality Noted Date Comments Clindamycin Hives 08/26/2014 Codeine 10/25/2011 "Stupor", drowsy Other Allergy (See Comments) 024 Perfumes, hairspray, candles, etc. Sinus infections, headaches, very sensitive. Penicillins 01/30/2006 Hives ans swelling Sulfa Antibiotics 06/29/2010 Sick to her stomach documented as of this encounter (statuses as of 05/14/2024) Medications OMEGA-3 FATTY ACIDS 1000 MG PO CAPS 0 07/23/19 07 Active Orencia 125 MG/ML Subcutaneous Solution Prefilled Syringe (Abatacept)Indica tions:Rheumatoid arthritis involving multiple sites with positive rheumatoid factor (HCC) INJECT 125 MG ( ONE SYRINGE ) UNDER THE SKIN ONCE A WEEK 4 mL 12/26/19 23 Active Additional Information Patient not taking.Reported on 05/14/2024 Levothyroxine Sodium 100 MCG Oral Tablet (Levoxyl)Indicati [...] needed for Shortness of Breath. 18 g 12/04/19 24 Active Prochlorperazine Maleate 10 MG Oral Tablet (Compazine)Indica [...] 24 Active Folic Acid 1 MG Oral TabletIndications :Rheumatoid arthritis involving multiple sites with positive rheumatoid factor (HCC) Take 1 Tablet by mouth in the morning. 90 Tablet 1 05/03/20 24 Active Methotrexate Sodium 2.5 MG Oral Tablet TAKE 6 TABLETS BY MOUTH ONE TIME PER WEEK 78 Tablet 1 05/03/20 24 Active Azithromycin 250 MG Oral Tablet (Zithromax Z-Dale)Indications :Acute maxillary sinusitis, recurrence not specified Take two tablets by mouth on first day, then 1 tablet daily until gone 6 Tablet 04/22/20 24 025 Discontin ued(Medic ation List Clean Up) levoFLOXacin 750 MG Oral Tablet (Levaquin)Indicat ions:Metastatic adenocarcinoma to liver (HCC),Small cell lung cancer, right (HCC) Take 1 Tablet by mouth in the morning. 14 Tablet 04/29/20 24 025 Discontin ued(Medic ation List Clean Up) Hospital, Clinic, or Other Facility Administered Medication Ordered Dose Route Frequency Start Date End Date Status Albuterol Sulfate (Proventil) (2.5 MG/3ML) 0.083% inhalation solution 2.5 mgIndications:Mass of right lung 2.5 mg NEBULIZER PRN 12/10/2023 Active Albuterol Sulfate (Proventil) (5 MG/ML) 0.5% *conc* inhalation solution 2.5 mgIndications:Mass of right lung 2.5 mg NEBULIZER PRN 12/10/2023 Active Lidocaine (PF) 2 % (PF) inj 20 mgIndications:Rheumatoi d arthritis involving multiple sites with positive rheumatoid factor (HCC) 20 mg IX ONCE 05/14/2024 05/14/2024 Ended Lidocaine (PF) 2 % (PF) inj 20 mgIndications:Rheumatoi d arthritis involving multiple sites with positive rheumatoid factor (HCC) 20 mg IX ONCE 05/14/2024 05/14/2024 Ended methylPREDNISolone acetate (Depo-Medrol) 40 MG/ML inj 40 mgIndications:Rheumatoi d arthritis involving multiple sites with positive rheumatoid factor (HCC) 40 mg IX ONCE 05/14/2024 05/14/2024 Ended methylPREDNISolone acetate (Depo-Medrol) 40 MG/ML inj 40 mgIndications:Rheumatoi d arthritis involving multiple sites with positive rheumatoid factor (HCC) 40 mg IX ONCE 05/14/2024 05/14/2024 Ended documented as of this encounter (statuses as of 05/14/2024) Active Problems Problem Noted Date Diagnosed Date [...] as of this encounter (statuses as of 05/14/2024) Resolved Problems Problem Noted Date Diagnosed Date [...] 07/18/2008 06/01/2019 Overview (07/31/2009): thyroglobulin antibody >3000 [id number] 08/19/200608/10 Overview (08/25/2009): Renamed Per Clinical Trials Billing Project. Pt is a participant in the [facility] (Consortium of Rheumatology Researchers of [facility]) national data collection study. For further information please call Dr Temo Castaneda or Kim Ríos, RN, CCRC at [phone] [facility] RESEARCH OTHER*[id number] 08/19/2006 11/06/2009 Overview (08/25/2009): Renamed Per Clinical Trials Billing Project. Pt is a participant in the [facility] (Consortium of Rheumatology Researchers of [place]) national data collection study. For further information please call Dr Temo Castaneda or Kim Ríos, RN, CCRC at [phone] Arthritis, rheumatoid 07/01/20062016 Abnormal blood chemistry 05/02/2006 [...] as of this encounter (statuses as of 05/14/2024) Immunizations Name Administration Dates Next Due COVID-19 [...] Sign Reading Time Taken Comments Blood Pressure - - Pulse - - Temperature 35.7 C (96.2 F) 05/14/2024 1:48 PM ES T Respiratory Rate - - Oxygen Saturation - - Inhaled Oxygen Concentration - - Weight 85.7 kg (189 lb) 05/14/2024 1:48 PM EST Height - - Body Mass Index 33.28 01/15/2024 3:20 PM EDT documented in this encounter Progress Notes * Samy Russo MD - 05/14/2024 1:50 PM ESTAssociated Order(s): LG Joint Inj/Arthro: bilateral subacromial bursa Post-Procedure Diagnose(s): Rheumatoid arthritis involving multiple sites with positive rheumatoid factor (HCC) Subjective: Patient seen today for further follow up evaluation of rheumatoid arthritis. Since the last visit she finished her chemotherapy for now on her immunotherapy through oncology. She reports that chemo was stopped even though sh still had tumor lweft but cannot get anymore chemo. This IV treatment is every 3 weeks and on neupogen every 6 weeks. She does get bone pains from this treatment. She is currently having a flare of her RA in her shoulders and elbows. She did contact me and discussed with hematology and started methtorexate again. No orencia. She has had 2 doses of MTX now. She is on pred 5mg daily. She is wondering about take it next prednisone as she needs to. She has trouble sleeping at night because of her shoulders. She has limited range of motion of her shoulders and has trouble getting dressed. Musculoskeletal ROS: . Abnormal: joint pain and joint swelling . Pain scale (0-10): 4 Other ROS: . Constitutional: trouble sleeping . Head normal . Eyes: normal . Ears, nose, throat, mouth: normal . Cardiovascular: normal . Respiratory: normal . Gastrointestinal: normal . Genitourinary: normal . Skin: normal All other ROS reviewed and negative Social History: Social History Tobacco Use Smoking status: Every Day Types: Vaporizer Smokeless tobacco: Never Substance Use Topics Alcohol use: Yes Comment: ocas Vaping/E-Cigarette Use Vaping/E-Cigarette Use Current Every Day User Vaping/E-Cigarette Substances Vaping/E-Cigarette Devices Current Outpatient Medications Medication Sig Dispense Refill OMEGA-3 FATTY ACIDS 1000 MG PO CAPS 0 Levothyroxine Sodium 100 MCG Oral Tablet (Levoxyl) Take 1 Tablet by mouth daily first thing in the morning. (at least 30 min prior to breakfast or other meds) 90 Tablet 3 Magic Swizzle (Hnitppbtj-Kbkqplxl-Dbuuyz) oral solution Swish and spit 15 mL [...] ONE TIME PER WEEK 78 Tablet 1 Orencia 125 MG/ML Subcutaneous Solution Prefilled Syringe (Abatacept) INJECT 125 MG ( ONE SYRINGE )UNDER THE SKIN ONCE A WEEK (Patient not taking: Reported on 05/14/2024) 4 mL 11 Current Facility-Administered Medications Medication Dose Route Frequency Provider Last Rate Last Admin Albuterol Sulfate (Proventil) (2.5 MG/3ML) 0.083% inhalation solution 2.5 mg 2.5 mg Nebulizer PRN 2.5 mg at 01/15/24 1445 Albuterol Sulfate (Proventil) (5 MG/ML) 0.5% *conc* inhalation solution 2.5 mg 2.5 mg Nebulizer PRN Physical Exam: Temp 35.7 C (96.2 F) (Infrared ) | Wt 85.7 kg (189 lb) | LMP 09/07/2015 (Approximate) | BMI 33.28 kg/m | BSA 1.95 m General: alert, no distress, and well nourished HENT: normocephalic, external ears normal, no mucosal erythema, no mucosal edema, moist mucosa, no oral ulcers Eye Exam: PERRL, EOMI, conjunctiva are pink and non-injected, sclera clear Neck: supple, no adenopathy, thyroid normal size, non-tender, without nodularity Lymph: no palpable lymphadenopathy Heart: regular rate & rhythm and no gallops Lungs: clear to auscultation , no rales, wheezes or rhonchi Abdomen: abdomen soft, non-tender, and normal bowel sounds Musculoskeletal Exam: . Synovitis: Trace synovitis noted to the MCPs, PIPs . Tenderness: Yes same as above, both shoulders, MTPs both feet, both knees . Range of Motion: Limited range of motion both shoulders Musculoskeletal Index: . Joint count tender (0-28): 20 . Joint count swollen (0-28): 16 . Physician global assessment of activity (0-100): 70 Assessment: (M05.79) Rheumatoid arthritis involving multiple sites with positive rheumatoid factor (HCC) (primary encounter diagnosis) (C34.91) Small cell lung cancer, right (HCC) (Z79.899) Encounter for long-term (current) use of medications Currently not doing well from her rheumatoid disease given her cancer and treatment. Did just restart methotrexate. Can not go back on biologics at this point. Discussed bilateral shoulder injections, she agreed and procedure note is below. Plan: 1. Continue care with Oncology 2. See procedure note below 3. Can continue with methotrexate 4. Continue with lab work as per Oncology 5. Return to clinic in 4 months Samy Russo MD Department of Rheumatology Alfredo Torrez is a 58 year old female patient. ICD-10-CM 1. Rheumatoid arthritis involving multiple sites with positive rheumatoid factor (HCC) M05.79 2. Small cell lung cancer, right (HCC) C34.91 3. Encounter for long-term (current) use of medications Z79.899 Past Medical History: Diagnosis Date Abnormal blood [...] Recurrent acute sinusitis 09/24/2016 Tobacco use disorder Temperature 35.7 C (96.2 F), temperature source Infrared , weight 85.7 kg (189 lb), last menstrual period 09/07/2015, not currently . LG Joint Inj/Arthro: bilateral subacromial bursa on 05/14/2024 2:10 PM Indications: pain Details: 25 G needle, posterior approach Medications (Right): (40mg of depomedrol and 1 ml of 2% lidocaine) Medications (Left): (40mg of depomedrol and 1 ml of 2% lidocaine) Outcome: tolerated well, no immediate complications Procedure, treatment alternatives, risks and benefits explained, specific risks discussed. Consent was given by the patient. Immediately prior to procedure a time out was called to verify the correctpatient, procedure, equipment, developer support engineer and site/side marked as required. Patient was prepped and draped in the usual sterile fashion. Samy Russo MD 05/14/2024 documented in this encounter Nursing Notes * Naomy Guzman LPN - 05/14/2024 1:45 PM EST Chief Complaint Patient presents with Rheum Follow Up Follow up - RA documented in this encounter Plan of Treatment Upcoming Encounters Date Type Department Care Team (Late st Contact Info) Description 05/20/2024 11:30 AM EST Laboratory Laboratory [place] Silvia Mortensen [address] [place] [phone] [place], Lab Scenery [address] [place] [address] 05/20/2024 12:30 PM EST Office Visit Hematology/Oncology [facility] [address] [place], [place] [address] Sukhjinder Faria MD [address] [place], [place] [address] 05/20/2024 2:00 PM EST Hem/Onc Treatment Hematology/Oncology Treatment, [place] [address] [place], [place] [address] [place], Chair 10 Hem Onc [facility] [address] [facility] [place], [place] [address] 07/14/2024 3:00 PM EST Office Visit Pulmonary Medicine, [facility] [address] [facility] [place] [address] El[facility] Pond [facility] [address] [facility] [address] 09/13/2024 3:00 PM EDT Office Visit Rheumatology [address] [place] [phone] Maile Wallace CRNP [address] [place] [address] [place], [place] [address] Health Maintenance Due Date Last Done Comments [...] this encounter Medical Devices Implanted Type Area Evaluation Manager Device Identifier Shelf Expiration Date Model / Serial / Lot Port Implant W8f Poly Cath - [id number] Implanted:Qty : 1 on 12/31/2023 by Sin Burroughs MD at [facility] Right: Chest CR BARD : PERIPHERAL VASCULAR [id number] 10/09/2024 [id number] / / [id number] documented as of this encounter Procedures Procedure Name Priority Date/Time Associated Diagnosis Comments NM ARTHROCENTESIS ASPIR&/INJ MAJOR JT/BURSA W/O US Routine 05/14/2024 2:10 PM EST Rheumatoid arthritis involving multiple sites with positive rheumatoid factor (HCC) documented in this encounter Results * NM ARTHROCENTESIS ASPIR&/INJ MAJOR JT/BURSA W/O US (05/14/2024 2:10 PM EST) Narrative Samy Russo MD - 05/14/2024 2:10 PM EST Samy Russo MD 05/14/2024 2:30 PM LG Joint Inj/Arthro: bilateral subacromial bursa on 05/14/2024 2:10 PM Indications: pain Details: 25 G needle, posterior approach Medications (Right): (40mg of depomedrol and 1 ml of 2% lidocaine) Medications (Left): (40mg of depomedrol and 1 ml of 2% lidocaine) Outcome: tolerated well, no immediate complications Procedure, treatment alternatives, risks and benefits explained, specific risks discussed. Consent was given by the patient. Immediately prior to procedure a time out was called to verify the correct patient, procedure, equipment, developer support engineer and site/side marked as required. Patient was prepped and draped in the usual sterile fashion. Samy Russo MD PROCDOC FORM Final Resul t documented in this encounter Visit Diagnoses Diagnosis Rheumatoid arthritis involving multiple sites with positive rheumatoid factor (HCC)- Primary Small cell lung cancer, right (HCC) Encounter for long-term (current) use of medications Encounter for long-term (current) use of other medications documented in this encounter Administered Medications Inactive Administered Medications - up to 3 most recent administrations Medication Order MAR Action Action Date Dose Rate Site Lidocaine (PF) 2 % (PF) inj 20 mg 20 mg, Intra-Articular, ONCE, On Fri05/14/24 at 1445, For 1 doseIndications:Rheumatoid arthritis involving multiple sites with positive rheumatoid factor (HCC) Given 05/14/2024 2:10 PM EST 20 mg Shoul keyla Right Lidocaine (PF) 2 % (PF) inj 20 mg 20 mg, Intra-Articular, ONCE, On Fri05/14/24 at 1445, For 1 doseIndications:Rheumatoid arthritis involving multiple sites with positive rheumatoid factor (HCC) Given 05/14/2024 2:10 PM EST 20 mg Shoul keyla Left methylPREDNISolone acetate (Depo-Medrol) 40 MG/ML inj 40 mg 40 mg, Intra-Articular, ONCE, On Fri05/14/24 at 1445, For 1 doseIndications:Rheumatoid arthritis involving multiple sites with positive rheumatoid factor (HCC) Given 05/14/2024 2:09 PM EST 40 mg Shoul keyla Right methylPREDNISolone acetate (Depo-Medrol) 40 MG/ML inj 40 mg 40 mg, Intra-Articular, ONCE, On Fri05/14/24 at 1445, For 1 doseIndications:Rheumatoid arthritis involving multiple sites with positive rheumatoid factor (HCC) Given 05/14/2024 2:10 PM EST 40 mg Shoul keyla Left documented in this encounter Care Teams Vinyl Installer Relationship Specialty Start Date End Date Edel Clay MD [address] [place] [address] [place] [phone] PCP - General Family Medicine 03/03/17 documented as of this encounter
--- OUTSIDE RECORDS SUMMARY | 2024-06-12 02:17 | External Medical Summary | Summary of Care ---
Author Name Unknown Organization [facility] Address [address] [place] [address] Phone [phone] Care Team Providers Care Seed District Sales Manager Name Role Phone Edel Clay MD Primary Care Provide r Reason for Visit * Reason Onset Date Comments Imaging Records Request 05/06/2024 Encounter Details Date Type Department Care Team (Late st Contact Info) Description 05/06/2024 Telephone Radiology Film File [address] [place] [address] Support, Imaging Radiology [address] [place] [address] Imaging Records Request Allergies Active Allergy Reactions Criticality Noted Date Comments Clindamycin Hives 08/26/2014 Codeine 10/25/2011 "Stupor", drowsy Other Allergy (See Comments) 024 Perfumes, hairspray, candles, etc. Sinus infections, headaches, very sensitive. Penicillins 01/30/2006 Hives ans swelling Sulfa Antibiotics 06/29/2010 Sick to her stomach documented as of this encounter (statuses as of 05/06/2024) Medications OMEGA-3 FATTY ACIDS 1000 MG PO CAPS 0 07/23/19 07 Active Orencia 125 MG/ML Subcutaneous Solution Prefilled Syringe (Abatacept)Indicat ions:Rheumatoid arthritis involving multiple sites with positive rheumatoid factor (HCC) INJECT 125 MG ( ONE SYRINGE ) UNDER THE SKIN ONCE A WEEK 4 mL 11 12/26/19 23 Active Additional Information Patient not taking.Reported on 02/23/2024 Levothyroxine Sodium 100 MCG Oral Tablet (Levoxyl)Indicatio [...] 02/23/2024 Prochlorperazine Maleate 10 MG Oral Tablet (Compazine)Indicat [...] flare 60 Tablet 2 04/13/20 24 Active Azithromycin 250 MG Oral Tablet (Zithromax Z-Dale)Indications: Acute maxillary sinusitis, recurrence not specified Take two tablets by mouth on first day, then 1 tablet daily until gone 6 Tablet 04/22/20 24 Active levoFLOXacin 750 MG Oral Tablet (Levaquin)Indicati ons:Metastatic adenocarcinoma to liver (HCC),Small cell lung cancer, right (HCC) Take 1 Tablet by mouth in the morning. 14 Tablet 04/29/20 24 Active Folic Acid 1 MG Oral [...] as of this encounter (statuses as of 05/06/2024) Active Problems Problem Noted Date Diagnosed Date [...] as of this encounter (statuses as of 05/06/2024) Resolved Problems Problem Noted Date Diagnosed Date [...] 07/18/2008 06/01/2019 Overview (07/31/2009): thyroglobulin antibody >3000 [id number] 08/19/200608/10 Overview (08/25/2009): Renamed Per Clinical Trials Billing Project. Pt is a participant in the [employer] (Consortium of Rheumatology Researchers of [place]) national data collection study. For further information please call Dr Temo Castaneda or Kim Ríos, RN, CCRC at [phone] [facility] RESEARCH OTHER*[id number] 08/19/2006 11/06/2009 Overview (08/25/2009): Renamed Per Clinical Trials Billing Project. Pt is a participant in the [facility] ([facility] of Rheumatology Researchers of [facility]) national data collection study. For further information please call Dr Temo Castaneda or Kim Ríos, RN, CCRC at [phone] Arthritis, rheumatoid 07/01/20062016 Abnormal blood chemistry 05/02/2006 [...] as of this encounter (statuses as of 05/06/2024) Immunizations Name Administration Dates Next Due COVID-19 [...] Date Smoking Tobacco: Every Day Cigarettes 1 28.4 Started: 12/04/1995 Smokeless Tobacco: Never Alcohol Use [...] encounter Miscellaneous Notes * Telephone Encounter - Amelie Ramon, System Support - 05/06/2024 4:38 PM EST [facility] requesting MRI brain 04/29/24, PET CT 04/26/24 & 02/17/24 [facility] [place] Authorization to Release on file. Images pushed to [facility] PACS external connection. documented in this encounter Plan of Treatment Upcoming Encounters Date Type Department Care Team (Late st Contact Info) Description 05/20/2024 11:30 AM EST Laboratory Laboratory [facility] [address] [place] [phone] [place], Lab Scenery [address] [facility] [place] [address] 05/20/2024 12:30 PM EST Office Visit Hematology/Oncology [facility] [address] [place] [phone] Sukhjinder Faria MD [address] [place] [address] 05/20/2024 2:00 PM EST Hem/Onc Treatment Hematology/Oncology Treatment, [place] [address] [place], [place] [phone] [place], Chair 10 [facility] [address] [facility] [place] [address] 07/14/2024 3:00 PM EST Office Visit Pulmonary Medicine, [facility] [address] [facility] [place] [address] Eloy Pond MD [address] [facility] [place] [phone] 10/15/2024 8:40 AM EDT Office Visit Rheumatology [address] [place] [phone] Samy Russo MD [facility] [place] [address] Health Maintenance Due Date Last Done Comments [...] this encounter Medical Devices Implanted Type Area Solutions Sales Consultant Device Identifier Shelf Expiration Date Model / Serial / Lot Port Implant W8f Poly Cath - [id number] Implanted:Qty : 1 on 12/31/2023 by Sin Burroughs MD at [facility] Right: Chest CR BARD : PERIPHERAL VASCULAR [id number] 10/09/2024 [id number] / / [id number] documented as of this encounter Care Teams Seed District Sales Manager Relationship Specialty Start Date End Date Edel Clay MD [address] [place] [address] [place] [phone] PCP - General Family Medicine 03/03/17 documented as of this encounter
--- OUTSIDE RECORDS SUMMARY | 2024-06-12 02:17 | External Medical Summary | Summary of Care ---
Author Name Unknown Organization [facility] Address [address] [place] [address] Phone [phone] Care Team Providers Care Customer Account Specialist Name Role Phone Edel Clay MD Primary Care Provide r Reason for Visit * Reason Onset Date Comments Appointment 05/04/2024 Encounter Details Date Type Department Care Team (Late st Contact Info) Description 05/04/2024 Telephone Hematology/Oncology Treatment, [place] [address] [place] [address] Monica Ward MD Appointment Allergies Active Allergy Reactions Criticality Noted [...] 07/18/2008 06/01/2019 Overview (07/31/2009): thyroglobulin antibody >3000 [id number] 08/19/200608/10 Overview (08/25/2009): Renamed Per Clinical Trials Billing Project. Pt is a participant in the [employer] (Consortium of Rheumatology Researchers of [place]) national data collection study. For further information please call Dr Temo Castaneda or Kim Ríos, RN, CCRC at [phone] [facility] RES[facility]ARCH OTHER*[id number] 08/19/2006 11/06/2009 Overview (08/25/2009): Renamed Per Clinical Trials Billing Project. Pt is a participant in the [employer] (Consortium of Rheumatology Researchers of [place]) national data collection study. For further information please call Dr Temo Castaneda or Kim Ríos, RN, CCRC at [phone] Arthritis, rheumatoid 07/01/20062016 Abnormal blood chemistry 05/02/2006 [...] Telephone Encounter - Marcela Orellana RN - 05/06/2024 11:32 AM EST Called patient, she accepted new appts. 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 With this situation, not sure what with the role of prophylactic brain radiation, patient need to be seen for further discussion about her future treatment." Yessenia: are you able to get appt with Dr Faria 05/20/24 at 12:30pm unlocked so that we can move patients appts to later in the day/ she can see MD? Thanks! * Telephone Encounter - Mar Murrell OSA - 05/04/2024 1:36 PM EST Will contact them they are off until Friday * Telephone Encounter - Marcela Orellana RN - 05/04/2024 11:29 AM EST Per rad/onc, new referral needed. Dr Galvez or Dr Faria: can one of you please place new rad/onc referral? Per patient, Dr Carrion had discussed prophylactic brain radiation as reason for referral. Thanks! Scheduling: once placed, please fax to [facility] rad/onc. Thanks! * Telephone Encounter - Marcela Orellana RN - 05/04/2024 9:01 AM EST Called patient about upcoming appts. Switched follow up to be with Maddie at the same time. Patient does not have a preference for days she comes to office, but has heard of Dr Faria so wouldlike to see him when transferring to MD. Patient states that when she saw Dr Carrion last week, Dr Carrion said she wanted her to get brain radiation. TT sent to [facility] rad/onc to see if they need new referral. documented in this encounter Plan of Treatment Upcoming Encounters Date Type Department Care Team (Late st Contact Info) Description 05/20/2024 11:30 AM EST Laboratory Laboratory [facility] [place] [address] [place] [address] [facility] Lab [facility] 200 [facility] [place] [address] 05/20/2024 12:30 PM EST Office Visit Hematology/Oncology [facility] [place] [address] [place] [phone] Sukhjinder Faria MD [address] [place] [address] 05/20/2024 2:00 PM EST Hem/Onc Treatment Hematology/Oncology Treatment, [place] [address] [place] [phone] [place], Chair 10 Hem Onc [facility] 200 [facility] [place] [address] 07/14/2024 3:00 PM EST Office Visit Pulmonary Medicine, [facility] 132 [facility] [place] [phone] Eloy Pond MD [address] [facility] [place] [address] 10/15/2024 8:40 AM EDT Office Visit Rheumatology [address] [place] [address] Samy Russo MD [address] [facility] [place] [place] [address] Health Maintenance Due Date Last Done Comments [...] this encounter Medical Devices Implanted Type Area Endless Steamer Tender Device Identifier Shelf Expiration Date Model / Serial / Lot Port Implant W8f Poly Cath - [id number] Implanted:Qty : 1 on 12/31/2023 by Sin Burroughs MD at OR [facility] Right: Chest CR BARD : PERIPHERAL VASCULAR [id number] 10/09/2024 [id number] / / [id number] documented as of this encounter Care Teams Customer Account Specialist Relationship Specialty Start Date End Date Edel Clay MD [address] [place] [address] [place] [phone] PCP - General Family Medicine 03/03/17 documented as of this encounter
--- OUTSIDE RECORDS SUMMARY | 2024-06-12 02:17 | External Medical Summary | Summary of Care ---
Author Name Unknown Organization [facility] Address [address] [place] [address] Phone [phone] Care Team Providers Care Separator Tender Name Role Phone Edel Clay MD Primary Care Provide r Reason for Visit * Reason Onset Date Comments Appointment 05/04/2024 Encounter Details Date Type Department Care Team (Late st Contact Info) Description 05/04/2024 Telephone Hematology/Oncology Treatment, [place] [address] [place] [address] Monica Ward MD Appointment Allergies [...] 07/18/2008 06/01/2019 Overview (07/31/2009): thyroglobulin antibody >3000 [id number] 08/19/200608/10 Overview (08/25/2009): Renamed Per Clinical Trials Billing Project. Pt is a participant in the [employer] (Consortium of Rheumatology Researchers of [place]) national data collection study. For further information please call Dr Temo Castaneda or Kim Ríos, RN, CCRC at [phone] [facility] RESEARCH OTHER*[id number] 08/19/2006 11/06/2009 Overview (08/25/2009): Renamed Per Clinical Trials Billing Project. Pt is a participant in the [employer] (Consortium of Rheumatology Researchers of [place]) national data collection study. For further information please call Dr Temo Castaneda or Kim Ríos, RN, CCRC at [phone] Arthritis, rheumatoid 07/01/20062016 Abnormal blood chemistry 05/02/2006 [...] Thanks! Scheduling: once placed, please fax to [facility] rad/onc. Thanks! * Telephone Encounter - Marcela [...] to get brain radiation. TT sent to [facility] rad/onc to see if they need new referral. documented in this encounter Plan of Treatment Upcoming Encounters Date Type Department Care Team (Late st Contact Info) Description 05/20/2024 9:00 AM EST Laboratory Laboratory [facility] [address] [place] [phone] [place], Lab [address] [facility] [place] [address] 05/20/2024 9:30 AM EST Office Visit Hematology/Oncology [facility] [place] [address] [place] [phone] Maddie Suarez, CASH CLERK [address] [facility] [address] 05/20/2024 10:15 AM EST Hem/Onc Treatment Hematology/Oncology Treatment, [place] [address] [place] [phone] [place], Chair 2 Hem Onc [place] [address] [place] [address] 07/14/2024 3:00 PM EST Office Visit Pulmonary Medicine, [facility] 132 [facility] [place] [address] Eloy Pond MD [address] [facility] [address] 10/15/2024 8:40 AM EDT Office Visit Rheumatology [address] [place] [phone] Samy Russo MD [address] [place] [employer] [place], [place] [address] Health Maintenance Due Date Last Done Comments [...] this encounter Medical Devices Implanted Type Area Pig Machine Supervisor Device Identifier Shelf Expiration Date Model / Serial / Lot Port Implant W8f Poly Cath - [id number] Implanted:Qty : 1 on 12/31/2023 by Sin Burroughs MD at OR [facility] Right: Chest CR BARD : PERIPHERAL VASCULAR [id number] 10/09/2024 [id number] / / [id number] documented as of this encounter Care Teams Separator Tender Relationship Specialty Start Date End Date Edel Clay MD [address] [place] [address] [place] [address] PCP - General Family Medicine 03/03/17 documented as of this encounter
--- OUTSIDE RECORDS SUMMARY | 2024-06-12 02:18 | External Medical Summary | Summary of Care ---
Author Name Unknown Organization [facility] Address [address] [place] [address] Phone [phone] Care Team Providers Care Logistic Specialist Name Role Phone Edel Clay MD Primary Care Provide r Reason for Visit * Reason Onset Date Comments Appointment 05/04/2024 Encounter Details Date Type Department Care Team (Late st Contact Info) Description 05/04/2024 Telephone Hematology/Oncology Treatment, [place] [address] [place] [address] Monica Ward MD Appointment Allergies Active Allergy Reactions Criticality Noted Date Comments Clindamycin Hives 08/26/2014 Codeine 10/25/2011 "Stupor", drowsy Other Allergy (See Comments) 024 Perfumes, hairspray, candles, etc. Sinus infections, headaches, very sensitive. Penicillins 01/30/2006 Hives ans swelling Sulfa Antibiotics 06/29/2010 Sick to her stomach documented as of this encounter (statuses as of 05/04/2024) Medications OMEGA-3 FATTY ACIDS 1000 MG PO [...] as of this encounter (statuses as of 05/04/2024) Active Problems Problem Noted Date Diagnosed Date [...] as of this encounter (statuses as of 05/04/2024) Resolved Problems Problem Noted Date Diagnosed Date [...] 07/18/2008 06/01/2019 Overview (07/31/2009): thyroglobulin antibody >3000 [id number] 08/19/200608/10 Overview (08/25/2009): Renamed Per Clinical Trials Billing Project. Pt is a participant in the [employer] (Consortium of Rheumatology Researchers of [place]) national data collection study. For further information please call Dr Temo Castaneda or Kim Ríos, RN, CCRC at [phone] [facility] OTHER*[id number] 08/19/2006 11/06/2009 Overview (08/25/2009): Renamed Per Clinical Trials Billing Project. Pt is a participant in the [employer] (Consortium of Rheumatology Researchers of [place]) national data collection study. For further information please call Dr Temo Castaneda or Kim Ríos, RN, CCRC at [phone] Arthritis, rheumatoid 07/01/20062016 Abnormal blood chemistry 05/02/2006 [...] as of this encounter (statuses as of 05/04/2024) Immunizations Name Administration Dates Next Due COVID-19 [...] RN - 05/04/2024 11:29 AM EST Per paula/onc, new referral needed. Dr Galvez or Dr Faria: can one of you please place new rad/onc referral? Per patient, Dr Carrion had discussed prophylactic brain radiation as reason for referral. Thanks! Scheduling: once placed, please fax to [facility] rad/onc. Thanks! * Telephone Encounter [...] to get brain radiation. TT sent to [facility] rad/onc to see if they need new referral. documented in this encounter Plan of Treatment Upcoming Encounters Date Type Department Care Team (Late st Contact Info) Description 05/20/2024 9:00 AM EST Laboratory Laboratory [facility] [place] [address] [place] [phone] [place], Lab [facility] 200 [facility] [place] [address] 05/20/2024 9:30 AM EST Office Visit Hematology/Oncology [facility] [place] [address] [place] [phone] Maddie Suarez CRNP [address] [facility] [place] [address] 05/20/2024 10:15 AM EST Hem/Onc Treatment Hematology/Oncology Treatment, [place] [address] [place] [phone] [place], Chair 2 Hem Onc [facility] [address] [place] [address] 07/14/2024 3:00 PM EST Office Visit Pulmonary Medicine, [facility] [address] [place] [address] Eloy Pond MD [address] [place] [address] 10/15/2024 8:40 AM EDT Office Visit Rheumatology [address] [place] [phone] Samy Russo MD [address] [employer] [place], [place] [address] Health Maintenance Due Date Last Done Comments [...] 05/13, 03/07/2017, Additional history exists Pneumococcal Vaccine: Pediatrics (0 to 5 Years) and At-Risk Patients (6 to 64 Years) (4 of 4 - PCV20 or PCV21) [...] this encounter Medical Devices Implanted Type Area Ham Stripper Device Identifier Shelf Expiration Date Model / Serial / Lot Port Implant W8f Poly Cath - [id number] Implanted:Qty : 1 on 12/31/2023 by Sin Burroughs MD at OR [facility] Right: Chest CR BARD : PERIPHERAL VASCULAR [id number] 10/09/2024 [id number] / / [id number] documented as of this encounter Care Teams Logistic Specialist Relationship Specialty Start Date End Date Edel [place] MD [address] [place] [address] [place] [phone] PCP - General Family Medicine 03/03/17 documented as of this encounter
--- OUTSIDE RECORDS SUMMARY | 2024-06-12 02:18 | External Medical Summary | Summary of Care ---
Author Name Unknown Organization [facility] Address [address] [place] [address] Phone [phone] Care Team Providers Care Corsets Salesperson Name Role Phone Eedl [place] MD Primary Care Provide r Reason for Visit * Reason Onset Date Comments Appointment 05/04/2024 Encounter Details Date Type Department Care Team (Late st Contact Info) Description 05/04/2024 Telephone Hematology/Oncology Treatment, [place] [address] [place] [address] Monica Ward MD Appointment Allergies [...] 07/18/2008 06/01/2019 Overview (07/31/2009): thyroglobulin antibody >3000 [id number] 08/19/200608/10 Overview (08/25/2009): Renamed Per Clinical Trials Billing Project. Pt is a participant in the [employer] (Consortium of Rheumatology Researchers of [place]) national data collection study. For further information please call Dr Temo Castaneda or Kim Ríos, RN, CCRC at [phone] [facility] RESEARCH OTHER*[id number] 08/19/2006 11/06/2009 Overview (08/25/2009): Renamed Per Clinical Trials Billing Project. Pt is a participant in the [employer] (Consortium of Rheumatology Researchers of [place]) national data collection study. For further information please call Dr Temo Castaneda or Kim Ríos, RN, CCRC at [phone] Arthritis, rheumatoid 07/01/20062016 Abnormal blood chemistry 05/02/2006 [...] encounter Miscellaneous Notes * Telephone Encounter - Mar Murrell, TAVON - 05/04/2024 1:36 PM EST Will contact [...] Thanks! Scheduling: once placed, please fax to [facility] rad/onc. Thanks! * Telephone Encounter - Marcela [...] to get brain radiation. TT sent to [facility] rad/onc to see if they need new referral. documented in this encounter Plan of Treatment Upcoming Encounters Date Type Department Care Team (Late st Contact Info) Description 05/20/2024 9:00 AM EST Laboratory Laboratory [facility] [place] [address] [place] [phone] [place] [facility] [place] [address] 05/20/2024 9:30 AM EST Office Visit Hematology/Oncology [facility] [place] [address] [place] [phone] Maddie Suarez CRNP 400 [facility] [place] [address] 05/20/2024 10:15 AM EST Hem/Onc Treatment Hematology/Oncology Treatment, [place] [address] [place] [phone] [place], Chair 2 Hem Onc [place] [address] [place] [address] 07/14/2024 3:00 PM EST Office Visit Pulmonary Medicine, [facility] [address] [facility] [place] [address] Eloy Pond MD [address] [place] [address] 10/15/2024 8:40 AM EDT Office Visit Rheumatology [address] [place] [address] Samy Russo MD [address] [facility] [place] [address] Health Maintenance Due Date Last Done Comments [...] exists HbA1c 08/06/2024 08/07/2023 Mammogram 09/11/2024 09/12/2023, 04/06/2021, 08/29/2020, Additional history exists TSH 04/29/2025 04/29/2024, [...] this encounter Medical Devices Implanted Type Area Csm Consultant Device Identifier Shelf Expiration Date Model / Serial / Lot Port Implant W8f Poly Cath - [id number] Implanted:Qty : 1 on 12/31/2023 by Sin Burroughs MD at OR [facility] Right: Chest CR BARD : PERIPHERAL VASCULAR [id number] 10/09/2024 [id number] / / [id number] documented as of this encounter Care Teams Corsets Salesperson Relationship Specialty Start Date End Date Edel [place] MD [address] [place] [address] [place] [phone] PCP - General Family Medicine 03/03/17 documented as of this encounter
--- OUTSIDE RECORDS SUMMARY | 2024-06-12 02:18 | External Medical Summary | Summary of Care ---
Author Name Unknown Organization [facility] Address [address] [place] [address] Phone [phone] Care Team Providers Care Correctional Supervising Cook Name Role Phone Edel [place] MD Primary Care Provide r Reason for Visit * Reason Onset Date Comments Appointment 05/04/2024 Encounter Details Date Type Department Care Team (Late st Contact Info) Description 05/04/2024 Telephone Hematology/Oncology Treatment, [place] [address] [place] [address] Monica Ward MD Appointment Allergies [...] 07/18/2008 06/01/2019 Overview (07/31/2009): thyroglobulin antibody >3000 [id number] 08/19/200608/10 Overview (08/25/2009): Renamed Per Clinical Trials Billing Project. Pt is a participant in the [employer] (Consortium of Rheumatology Researchers of [place]) national data collection study. For further information please call Dr Temo Castaneda or Kim Ríos, RN, CCRC at [phone] [facility] RESEARCH OTHER*[id number] 08/19/2006 11/06/2009 Overview (08/25/2009): Renamed Per Clinical Trials Billing Project. Pt is a participant in the [employer] (Consortium of Rheumatology Researchers [place]) national data collection study. For further information please call Dr Temo Castaneda or Kim Ríos, RN, CCRC at [phone] Arthritis, rheumatoid 07/01/20062016 Abnormal blood chemistry 05/02/2006 [...] Thanks! Scheduling: once placed, please fax to [facility] rad/onc. Thanks! * Telephone Encounter - [...] to get brain radiation. TT sent to [facility] rad/onc to see if they need new referral. documented in this encounter Plan of Treatment Upcoming Encounters Date Type Department Care Team (Late st Contact Info) Description 05/20/2024 9:00 AM EST Laboratory Laboratory [facility] [place] [address] [place] [phone] [place] [facility] 200 [facility] [place] [address] 05/20/2024 9:30 AM EST Office Visit Hematology/Oncology Radha [place] [address] [place] [phone] Maddie Suarez CRNP 400 [facility] [place] [address] 05/20/2024 10:15 AM EST Hem/Onc Treatment Hematology/Oncology Treatment, [place] [address] [place] [phone] [place], Chair 2 Hem Onc [place] [address] [place] [address] 07/14/2024 3:00 PM EST Office Visit Pulmonary Medicine, [facility] 132 [facility] [place] [address] Eloy Pond MD [address] [place] [address] 10/15/2024 8:40 AM EDT Office Visit Rheumatology [address] [place] [address] Samy Russo MD [address] [place] [address] Health Maintenance Due Date Last Done Comments [...] this encounter Medical Devices Implanted Type Area Crew Scheduler Device Identifier Shelf Expiration Date Model / Serial / Lot Port Implant W8f Poly Cath - [id number] Implanted:Qty : 1 on 12/31/2023 by Sin Burroughs MD at [facility] Right: Chest CR BARD : PERIPHERAL VASCULAR [id number] 10/09/2024 [id number] / / [id number] documented as of this encounter Care Teams Correctional Supervising Cook Relationship Specialty Start Date End Date Edel [place] MD [address] [place] [address] [place] [address] PCP - General Family Medicine 03/03/17 documented as of this encounter
--- OUTSIDE RECORDS SUMMARY | 2024-06-12 02:18 | External Medical Summary | Summary of Care ---
Author Name Unknown Organization [facility] Address [address] [place] [address] Phone [phone] Care Team Providers Care Video Game Programmer Name Role Phone Edel [place] MD Primary Care Provide r Reason for Visit * Reason Onset Date Comments Appointment 05/04/2024 Encounter Details Date Type Department Care Team (Late st Contact Info) Description 05/04/2024 Telephone Hematology/Oncology Treatment, [place] [address] [place] [address] Monica [place] MD [address] [place] [phone] Appointment Allergies Active Allergy Reactions Criticality Noted [...] 07/18/2008 06/01/2019 Overview (07/31/2009): thyroglobulin antibody >3000 [id number] 08/19/200608/10 Overview (08/25/2009): Renamed Per Clinical Trials Billing Project. Pt is a participant in the [facility] (Consortium of Rheumatology Researchers [place]) national data collection study. For further information please call Dr Temo Castaneda or Kim Ríos, RN, CCRC at [phone] [facility] RESEARCH OTHER*[id number] 08/19/2006 11/06/2009 Overview (08/25/2009): Renamed Per Clinical Trials Billing Project. Pt is a participant in the [facility] (Consortium of Rheumatology Researchers of [place]) national data collection study. For further information please call Dr Temo Castaneda or Kim Ríos, RN, CCRC at [phone] Arthritis, rheumatoid 07/01/20062016 Abnormal blood chemistry 05/02/2006 [...] to get brain radiation. TT sent to [facility] rad/onc to see if they need new referral. documented in this encounter Plan of Treatment Upcoming Encounters Date Type Department Care Team (Late st Contact Info) Description 05/20/2024 9:00 AM EST Laboratory Laboratory [facility] 200 [facility] [place] [phone] [place], Lab [facility] 200 [facility] [place] [address] 05/20/2024 9:30 AM EST Office Visit Hematology/Oncology [facility] 200 [facility] [place] [phone] Maddie Suarez, MANAGER IN HOME 400 [facility] [place] [address] 05/20/2024 10:15 AM EST Hem/Onc Treatment Hematology/Oncology Treatment, [place] [address] [facility] [place] [phone] [place], Chair 2 Hem Onc [address] [place] [address] 07/14/2024 3:00 PM EST Office Visit Pulmonary Medicine, [facility] 132 [facility] [place] [address] Eloy Pond MD [address] [facility] [place] [address] 10/15/2024 8:40 AM EDT Office Visit Rheumatology [address] [place] [address] Samy Russo MD [address] [place] [employer] [place] [address] Health Maintenance Due Date Last Done Comments [...] this encounter Medical Devices Implanted Type Area Licensed Prosthetist/Orthotist Device Identifier Shelf Expiration Date Model / Serial / Lot Port Implant W8f Poly Cath - [id number] Implanted:Qty : 1 on 12/31/2023 by Sin Burroughs MD at [facility] Right: Chest CR BARD : PERIPHERAL VASCULAR [id number] 10/09/2024 [id number] / / [id number] documented as of this encounter Care Teams Video Game Programmer Relationship Specialty Start Date End Date Edel [place] MD [address] [place] [address] [place] [address] PCP - General Family Medicine 03/03/17 documented as of this encounter
--- OUTSIDE RECORDS SUMMARY | 2024-06-12 02:19 | External Medical Summary | Summary of Care ---
Author Name Unknown Organization [facility] Address [address] [place] [address] Phone [phone] Care Team Providers Care Sewer Name Role Phone Edel Clay MD Primary Care Provide r Reason for Visit * Reason Comments Outpatient Testing Encounter Details Date Type Department Care Team (Late st Contact Info) Description 04/29/2024 10:00 AM EST Laboratory Laboratory [facility] [address] [place] [address] [facility] [address] [place] [address] Rheumatoid arthritis involving multiple sites with positive rheumatoid factor (HCC); Encounter for long-term (current) use of medications; Metastatic adenocarcinoma to liver (HCC) Allergies Active Allergy Reactions Criticality Noted Date Comments Clindamycin Hives 08/26/2014 Codeine 10/25/2011 "Stupor", drowsy Other Allergy (See Comments) 024 Perfumes, hairspray, candles, etc. Sinus infections, headaches, very sensitive. Penicillins 01/30/2006 Hives ans swelling Sulfa Antibiotics 06/29/2010 Sick to her stomach documented as of this encounter (statuses as of 04/29/2024) Medications OMEGA-3 FATTY ACIDS 1000 MG PO [...] MCG/ACT Nasal Aerosol (Nasacort Allergy 24HR) Active Methotrexate Sodium 2.5 MG Oral Tablet TAKE 6 TABLETS BY MOUTH ONE TIME PER WEEK 78 Tablet 1 10/09/19 24 Active Folic Acid 1 MG Oral TabletIndications: Rheumatoid arthritis involving multiple sites with positive rheumatoid factor (HCC) TAKE 1 TABLET BY MOUTH EVERY DAY 90 Tablet 1 12/01/19 24 Active Additional Information Patient not taking.Reported on 02/23/2024 Ventolin HFA 108 (90 Base) MCG/ACT Inhalation [...] until gone 6 Tablet 04/22/20 24 Active Hospital, Clinic, or Other Facility [...] as of this encounter (statuses as of 04/29/2024) Active Problems Problem Noted Date Diagnosed Date [...] as of this encounter (statuses as of 04/29/2024) Resolved Problems Problem Noted Date Diagnosed Date [...] 07/18/2008 06/01/2019 Overview (07/31/2009): thyroglobulin antibody >3000 [id number] 08/19/200608/10 Overview (08/25/2009): Renamed Per Clinical Trials Billing Project. Pt is a participant in the [employer] (Consortium of Rheumatology Researchers of [place]) national data collection study. For further information please call Dr Temo Castaneda or Kim Ríos, RN, CCRC at [phone] [facility] RESEARCH OTHER*[id number] 08/19/2006 11/06/2009 Overview (08/25/2009): Renamed Per Clinical Trials Billing Project. Pt is a participant in the [facility] (Consortium of Rheumatology Researchers of [facility]) national data collection study. For further information please call Dr Temo Castaneda or Kim Ríos, RN, CCRC at [phone] Arthritis, rheumatoid 07/01/20062016 Abnormal blood chemistry 05/02/2006 [...] as of this encounter (statuses as of 04/29/2024) Immunizations Name Administration Dates Next Due COVID-19 [...] Upcoming Encounters Date Type Department Care Team (Latest Contact Info) Description 04/29/2024 10:30 AM EST Office Visit Hematology/Oncology [facility] [address] [place] [phone] Monica Ward MD [address] [place] [phone] Date of visit: 04/29/2024 04/29/2024 11:00 AM EST Hem/Onc Treatment Hematology/Oncology Treatment, [place] [address] [place] [address] [place], Chair 2 Hem Onc [facility] [address] [facility] [place] [address] Arrived 04/29/2024 3:30 PM EST Imaging Radiology [facility] 1st [facility] [address] [place] [address] 07/14/2024 3:00 PM EST Office Visit Pulmonary Medicine, [facility] [address] [place] [address] [facility] [address] [facility] [address] 10/15/2024 8:40 AM EDT Office Visit Rheumatology [address] [place] [phone] Samy Russo MD [facility] [place] [address] Pending Results Name Type Priority Associated Diagnoses Date /Time TSH WITH FREE T4 IF INDICATED Lab STAT Metastatic adenocarcinoma to liver (HCC) 04/29/2024 10:00 AM EST COMPREHENSIVE METABOLIC PANEL Lab STAT Metastatic adenocarcinoma to liver (HCC) 04/29/2024 10:00 AM EST Health Maintenance Due Date Last [...] 09/12/2023, 08/11, 08/29/2020, Additional history exists TSH 04/05/2025 04/05/2024, 08/2023, 02/23/2024, Additional history exists Lipid Panel 05/19/2025 05/19/2020, 05/13, 03/07/2017, Additional history exists DTap/Tdap Vaccines (4 - Td or Tdap) 08/18/2028 08/18/2018, 02/10/2008, 02/10/2008 Pneumococcal Vaccine: Pediatrics (0 to 5 Years) and At-Risk Patients (6 to 64 Years) (4 of 4 - PPSV23 or PCV20) 2032 05/19/2020, 10/29/2011, 10/25/2011, Additional history exists Influenza Vaccine (FLU shot) Completed , 02/12/2022, 02/09/2021, Additional history exists HPV (Gardasil) Vaccine Aged Out No lo nger eligible based on patient's age to complete this topic MENINGOCOCCAL (MENACTRA/MENVEO) Aged Out No longer eligible based on patient's age to complete this topic documented as of this encounter Medical Devices Implanted Type Area Communication Arts Lecturer Device Identifier Shelf Expiration Date Model / Serial / Lot Port Implant W8f Poly Cath - [id number] Implanted:Qty : 1 on 12/31/2023 by Sin Burroughs MD at OR [facility] Right: Chest CR BARD : PERIPHERAL VASCULAR [id number] 10/09/2024 [id number] / / [id number] documented as of this encounter Procedures Procedure Name Priority Date/Time Associated Diagnosis Comments DIFFERENTIAL, AUTOMATED STAT 04/29/2024 10:00 AM EST Metastatic adenocarcinoma to liver (HCC) CBC STAT 04/29/2024 10:00 AM EST Metastatic adenocarcinoma to liver (HCC) CBC STAT 04/29/2024 10:00 AM EST Metastatic adenocarcinoma to liver (HCC) documented in this encounter Results * DIFFERENTIAL, AUTOMATED (04/29/2024 10:00 AM EST) WBC 6.13 4.00 - 10.80 K/uL 04/29/2024 10:11 AM EST [employer] 56-02 Neutrophils % 63.1 40.0 - 75.0 % 04/29/2024 10:11 AM [facility] [employer] 56-02 Lymphocytes % 24.6 18.0 - 42.0 % 04/29/2024 10:11 AM EST [employer] [facility] 56-02 Monocytes % 10.9 1.0 - 11.0 % 04/29/2024 10:11 AM EST [facility] 56-02 Eosinophils % 0.3 0.0 - 6.0 % 04/29/2024 10:11 AM EST [facility] 56-02 Basophils % 1.1 0.0 - 2.0 % 04/29/2024 10:11 AM EST [facility] 56-02 Absolute Neutrophils 3.86 1.80 - 7.70 K/uL 04/29/2024 10:11 AM EST [facility] 56-02 Absolute Lymphocytes 1.51 1.00 - 4.80 K/ul 04/29/2024 10:11 AM EST [facility] 56-02 Absolute Monocytes 0.67 0.00 - 1.10 K/uL 04/29/2024 10:11 AM EST [employer] [facility] 56-02 Absolute Eosinophils 0.02 0.00 - 0.70 K/uL 04/29/2024 10:11 AM EST [employer] [facility] 56-02 Absolute Basophils 0.07 0.00 - 0.20 K/uL 04/29/2024 10:11 AM [facility] 56 Blood Venous blood specimen / Unknown Venipuncture / Unknown 04/29/2024 10:00 AM EST 04/29/2024 10:00 AM EST Monica Ward MD LAB BLOOD OR DERABLES Final Result [place] [address] [place] [id number] * (ABNORMAL) CBC (04/29/2024 10:00 AM EST) WBC 6.13 4.00 - 10.80 K/uL 04/29/2024 10:[address] RBC 3.12 3.85 - 5.15 M/uL 04/29/2024 10:[address] HGB 10.6(L) 12.0 - 15.3 g/dL 04/29/2024 10:[address] HCT 33.4(L) 36.0 - 45.2 % 04/29/2024 10:[address] MCV 107.1 81.5 - 97.5 fL 04/29/2024 10:[address] MCH 34.0 27.0 - 34.0 pg 04/29/2024 10:[address] MCHC 31.7 32.0 - 36.0 g/dL 04/29/2024 10:11 AM [facility] 56 RDW 15.1 11.5 - 15.5 % 04/29/2024 10:11 AM [facility] 56 PLT 432(H) 140 - 400 K/uL 04/29/2024 10:11 AM [facility] 56 MPV 8.5 6.6 - 11.1 fL 04/29/2024 10:11 AM [facility] 56 Blood Venous blood specimen / Unknown Venipuncture / Unknown 04/29/2024 10:00 AM EST 04/29/2024 10:00 AM EST Monica Ward MD LAB BLOOD OR DERABLES Final Result [facility]-02 [address] [place] [address] documented in this encounter Visit Diagnoses Diagnosis Rheumatoid arthritis involving multiple sites with positive rheumatoid factor (HCC) Encounter for long-term (current) use of medications Encounter for long-term (current) use of other medications Metastatic adenocarcinoma to liver (HCC) Secondary malignant neoplasm of liver documented in this encounter Care Teams Sewer Relationship Specialty Start Date End Date Edel Clay MD [address] [place] [address] [place] [address] PCP - General Family Medicine 03/03/17 documented as of this encounter
--- OUTSIDE RECORDS SUMMARY | 2024-06-12 02:19 | External Medical Summary | Summary of Care ---
Author Name Unknown Organization [facility] Address [address] [place] [address] Phone [phone] Care Team Providers Care Software Packager Name Role Phone Edel Clay MD Primary Care Provide r Reason for Visit * Reason Comments Chemotherapy Tecentriq * Episode Based Medications (Routine) - Authorized Specialty Diagnoses / Procedures Referred By Contac t Referred To Contact Diagnoses Encounter for antineoplastic chemotherapy Cancer, metastatic to bone (HCC) Metastatic adenocarcinoma to liver (HCC) Small cell lung cancer, right (HCC) Procedures TN CARBOPLATIN INJECTION TN FOSAPREPITANT INJECTION TN ETOPOSIDE 10 MG INJ TN INJ, ATEZOLIZUMAB,10 MG TN INJECTION, Monica Anderson MD [address] [facility] [place] [address] Phone: tel: fax: Hematology/Oncology Treatment, [address] [place] [address] Phone: tel: fax: Referral ID Status Reason Start Date Expiration Date V isits Requested Visits Authorized [id number] Authorized 12/17/2023 06/13/2024 [id number] Encounter Details Date Type Department Care Team (Latest Contact Info) Description 04/29/2024 11:00 AM EST Hem/Onc Treatment Hematology/Oncolog [address], [address] [address] [place], Chair 2 Hem On[address] [id number] Encounter for antineoplastic chemotherapy*; Cancer, metastatic to [...] 07/18/2008 06/01/2019 Overview (07/31/2009): thyroglobulin antibody >3000 [id number] 08/19/200608/10 Overview (08/25/2009): Renamed Per Clinical Trials Billing Project. Pt is a participant in the [employer] (Consortium of Rheumatology Researchers of [place]) national data collection study. For further information please call Dr Temo Castaneda or Kim Ríos, RN, CCRC at [phone] [facility] RESEARCH OTHER*[id number] 08/19/2006 11/06/2009 Overview (08/25/2009): Renamed Per Clinical Trials Billing Project. Pt is a participant in the [employer] (Consortium of Rheumatology Researchers of [place]) national data collection study. For further information please call Dr Temo Castaneda or Kim Ríos, RN, CCRC at [phone] Arthritis, rheumatoid 07/01/20062016 Abnormal blood chemistry 05/02/2006 [...] Description 05/20/2024 9:00 AM EST Laboratory Laboratory [facility] [place] [address] [place] [phone] Diana Mortensen [facility] [address] [place] [address] [address] 05/20/2024 9:30 AM EST Office Visit Hematology/Oncology [facility] [place] [address] [place] [address] [phone] Monica Ward MD [address] [place] [address] [place] [phone] 05/20/2024 10:15 AM EST Hem/Onc Treatment Hematology/Oncology Treatment, [place] [address] [place] [address] [place], Chair 2 Hem Onc [place] [address] [place] [address] 07/14/2024 3:00 PM EST Office Visit Pulmonary Medicine, [facility] [address] [facility] [place] [address] Eloy Pond MD [address] [facility] [place] [address] 10/15/2024 8:40 AM EDT Office Visit Rheumatology [address] [place] [phone] Samy Russo MD [address] [facility] [place], [place] [address] Health Maintenance Due Date Last Done Comments [...] 09/12/2023, 04/06/2021, 08/29/2020, Additional history exists TSH 04/05/2025 04/05/2024, [...] this encounter Medical Devices Implanted Type Area Pediatric Radiologist Device Identifier Shelf Expiration Date Model / Serial / Lot Port Implant W8f Poly Cath - [id number] Implanted:Qty : 1 on 12/31/2023 by Sin Burroughs MD at OR [facility] Right: Chest CR BARD : PERIPHERAL VASCULAR [id number] 10/09/2024 [id number] / / [id number] documented as of this encounter Visit Diagnoses [...] ONCE PRN Other, Hypersensitivity Reaction, Starting on Lizbeth 04/29/24 at 1150, Until Fri04/30/24 at 1149, For 24 hoursIndications:Encounter for antineoplastic chemotherapy,Cancer, metastatic to bone (HCC),Metastatic adenocarcinoma to liver (HCC),Small cell lung cancer, right (HCC) diphenhydrAMINE (Benadryl) inj 50 mg 50 mg, IV Push, ONCE PRN Other, Hypersensitivity Reaction, Starting on Fri04/29/24 at 1231, Until Fri04/30/24 at 1230, For 24 hoursIndications:Cancer, metastatic to bone (HCC),Metastatic adenocarcinoma to liver (HCC),Small cell lung cancer, right (HCC) EPINEPHrine 1 MG/ML inj 0.3 mg 0.3 mg, Intramuscular, ONCE PRN Other, Hypersensitivity Reaction or Anaphylaxis, Starting on Fri04/29/24 at 1150, Until Fri04/30/24 at 1149, For 24 hoursIndications:Encounter for antineoplastic chemotherapy,Cancer, metastatic to bone (HCC),Metastatic adenocarcinoma to liver (HCC),Small cell lung cancer, right (HCC) EPINEPHrine 1 MG/ML inj 0.3 mg 0.3 mg, Intramuscular, ONCE PRN Other, Hypersensitivity Reaction or Anaphylaxis, Starting on Fri04/29/24 at 1231, Until Fri04/30/24 at 1230, For 24 hoursIndications:Cancer, metastatic to bone (HCC),Metastatic adenocarcinoma to liver (HCC),Small cell lung cancer, right (HCC) hEParin 100 UNIT/ML Lock Flush inj 500 Units 500 Units (5 mL), IV Lock, PRN Other, IV Flush, Starting on Fri04/29/24 at 1150, Until Fri04/30/24 at 1149, For 24 hours, Do not flush if lock, PICC, or central line not in place; IV infusing or unable to flush.Indications:Encounter for antineoplastic chemotherapy,Cancer, metastatic to bone (HCC),Metastatic adenocarcinoma to liver (HCC),Small cell lung cancer, right (HCC) Given 04/29/2024 1:26 PM EST 500 Units Hydrocortisone Sod Suc (PF) (Solu-Cortef) inj 100 mg 100 mg, IV Push, ONCE PRN Other, Hypersensitivity Reaction, Starting on Fri04/29/24 at 1150, Until Fri04/30/24 at 1149, For 24 hoursIndications:Encounter for antineoplastic chemotherapy,Cancer, metastatic to bone (HCC),Metastatic adenocarcinoma to liver (HCC),Small cell lung cancer, right (HCC) Hydrocortisone Sod Suc (PF) (Solu-Cortef) inj 100 mg 100 mg, IV Push, ONCE PRN Other, Hypersensitivity Reaction, Starting on Fri04/29/24 at 1231, Until Fri04/30/24 at 1230, For 24 hoursIndications:Cancer, metastatic to bone (HCC),Metastatic adenocarcinoma to liver (HCC),Small cell lung cancer, right (HCC) NSS infusion Intravenous, at 50 mL/hr, PRN, Starting on Fri04/29/24 at 1300, Until Discontinued, Maintenance lineIndications:Encounter for antineoplastic chemotherapy,Cancer, metastatic to bone (HCC),Metastatic adenocarcinoma to liver (HCC),Small cell lung cancer, right (HCC) Start Infusion 04/29/2024 11:50 AM EST 50 mL/hr oxygen GAS Inhalation, OXYGEN, First dose on Fri04/29/24 at 1600, Until Discontinued, Device/Managed by: Low [...] liver (HCC),Small cell lung cancer, right (HCC) oxygen GAS Inhalation, OXYGEN, First dose on Fri04/29/24 at 1600, Until Discontinued, Device/Managed by: Low [...] saturation is greater than or equal to 93%Indications:Cancer, metastatic to bone (HCC),Metastatic adenocarcinoma to liver (HCC),Small cell lung cancer, right (HCC) sodium chloride 0.9 % flush central line 10 mL 10 mL, IV Push, PRN Other, IV Flush, Starting on Lizbeth 04/29/24 at 1150, Until Fri04/30/24 at 1149, For 24 hours, Do not flush if lock, PICC, or central line not in place; IV infusing or unable to flush.Indications:Encounter for antineoplastic chemotherapy,Cancer, metastatic to bone (HCC),Metastatic adenocarcinoma to liver (HCC),Small cell lung cancer, right (HCC) Given 04/29/2024 1:26 PM EST 10 mL Inactive Administered Medications [...] 12:28 PM EST 1,200 mg 550 mL/hr Zoledronic Acid (Zometa) 4 mg in 100 mL PREMIX ivpb 4 mg, IV Piggyback, ONCE, 1 dose, On Lizbeth 04/29/24 at 1345Indications:Cancer, metastatic to bone (HCC),Metastatic adenocarcinoma to liver (HCC),Small cell lung cancer, right (HCC) Start Infusion 04/29/2024 1:04 PM EST 4 mg 400 mL/hr documented in this encounter Care Teams Software Packager Relationship Specialty Start Date End Date Edel Clay MD [address] [place] [address] [place] [address] PCP - General Family Medicine 03/03/17 documented as of this encounter
--- OUTSIDE RECORDS SUMMARY | 2024-06-12 02:19 | External Medical Summary | Summary of Care ---
Author Name Unknown Organization [facility] Address [address] [place] [address] Phone [phone] Care Team Providers Care Tubing Drier Name Role Phone Edel Clay MD Primary Care Provide r Reason for Visit * Reason Comments Appointment Follow Up Treatment Encounter Details Date Type Department Care Team (Late st Contact Info) Description 04/29/2024 10:30 AM EST Office Visit Hematology/Oncology [facility] [address] [place] [address] Monica Ward MD [address] [place] [address] Metastatic adenocarcinoma to liver (HCC)*; Small cell lung cancer, right (HCC) Allergies Active Allergy Reactions Criticality Noted Date Comments Clindamycin Hives 08/26/2014 Codeine 10/25/2011 "Stupor", drowsy Other Allergy (See Comments) 024 Perfumes, hairspray, candles, etc. Sinus infections, headaches, very sensitive. Penicillins 01/30/2006 Hives ans swelling Sulfa Antibiotics 06/29/2010 Sick to her stomach documented as of this encounter (statuses as of 05/03/2024) Medications OMEGA-3 FATTY ACIDS 1000 MG PO [...] 24 Active levoFLOXacin 750 MG Oral Tablet (Levaquin)Indicat ions:Metastatic adenocarcinoma to liver (HCC),Small cell lung cancer, right (HCC) Take 1 Tablet by mouth in the morning. 14 Tablet 04/29/20 24 Active Methotrexate Sodium 2.5 MG Oral Tablet TAKE 6 TABLETS BY MOUTH ONE TIME PER WEEK 78 Tablet 1 10/09/19 24 024 Discontin ued(Refil l) Folic Acid 1 MG Oral TabletIndications :Rheumatoid arthritis involving multiple sites with positive rheumatoid factor (HCC) TAKE 1 TABLET BY MOUTH EVERY DAY 90 Tablet 1 12/01/19 24 024 Discontin ued(Refil l) Hospital, Clinic, or Other Facility Administered Medication Ordered Dose Route Frequency Start Date End Date Status Albuterol Sulfate (Proventil) (2.5 MG/3ML) 0.083% inhalation solution 2.5 mgIndications:Mass of right lung 2.5 mg NEBULIZER PRN 12/10/2023 Active Albuterol Sulfate (Proventil) (5 MG/ML) 0.5% *conc* inhalation solution 2.5 mgIndications:Mass of right lung 2.5 mg NEBULIZER PRN 12/10/2023 Active documented as of this encounter (statuses as of 05/03/2024) Active Problems Problem Noted Date Diagnosed Date [...] as of this encounter (statuses as of 05/03/2024) Resolved Problems Problem Noted Date Diagnosed Date [...] 07/18/2008 06/01/2019 Overview (07/31/2009): thyroglobulin antibody >3000 [id number] 08/19/200608/10 Overview (08/25/2009): Renamed Per Clinical Trials Billing Project. Pt is a participant in the [employer] (Consortium of Rheumatology Researchers of [place]) national data collection study. For further information please call Dr Temo Castaneda or Kim Ríos, RN, CCRC at [phone] [facility] RESEARCH OTHER*[id number] 08/19/2006 11/06/2009 Overview (08/25/2009): Renamed Per Clinical Trials Billing Project. Pt is a participant in the [facility] (Consortium of Rheumatology Researchers of [place]) national data collection study. For further information please call Dr Temo Castaneda or Kim Ríos, RN, CCRC at [phone] Arthritis, rheumatoid 07/01/20062016 Abnormal blood chemistry 05/02/2006 [...] as of this encounter (statuses as of 05/03/2024) Immunizations Name Administration Dates Next Due COVID-19 [...] Sign Reading Time Taken Comments Blood Pressure 159/80 04/29/2024 10:30 AM EST Pulse 97 04/29/2024 10:30 AM EST Temperature 37.2 C (98.9 F) 04/29/2024 10:[address] Respiratory Rate - - Oxygen Saturation 95% 04/29/2024 10:30 AM EST Inhaled Oxygen Concentration - - Weight 87.8 kg (193 lb 8 oz) 04/29/2024 10:30 AM EST Height - - Body Mass Index 34.07 01/15/2024 3:20 PM EDT documented in this encounter Patient Instructions * Patient Instructions* Monica Ward MD - 04/29/2024 11:39 AM EST Continue the current treatment. Completed 6 cycles of carboplatin and etoposide and atezolizumab on 04/05/2024. Last Zometa given on 03/17/2024. PET scan on 04/26/2024 reviewed with the patient with equivocal results. Continue the current treatment Further treatment options in case of disease progression discussed with the patient in detail - Lurbinectedin (Zepzelca), Topotecan as well as Taralatamab (most recent approved treatment for ES-SCLC)). \\ Due to the equivocal PET scan results, I have explained to the patient that we can wait on startingthese second/third line agents and she should continue with the current immunotherapy. I'll check into the feasibility of adding a chemo agent to the maintenance immunotherapy with Atezolizumab (Tecentriq) Start maintenance atezolizumab today MRI of the brain scheduled for later this afternoon. Follow up with Radiation Oncology (patient was seen on 12/22/[address] Henning at [facility]) regarding PCI- prophylactic brain irradiation. We will repeat PET scan in 6-8 weeks Follow up with me in 3 weeks with the next treatment. Levofloxacin 750 mg po Q day x 14 days prescribed for right maxillary sinusitis. Follow up with me in 3 weeks with the next treatment. Start maintenance atezolizumab today MRI of the brain scheduled for later this afternoon. Follow up with Radiation Oncology (patient was seen on 12/22/[address] Henning at [facility]) regarding PCI- prophylactic brain irradiation. We will repeat PET scan in 6-8 weeks Follow up with me in 3 weeks with the next treatment. documented in this encounter Progress Notes * Monica Ward MD - 04/29/2024 10:30 AM EST Images from the original note were not included. Date of visit: 04/29/2024 Reason for visit: Chemo Follow up Diagnosis: 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 Current treatment: Carboplatin + Etoposide + atezolizumab Q 3 weeks and Zometa Q 6 weeks Subjective: Alfredo Torrez is a 58 year old female presents for follow up on 04/29/2024 for management of extensive stage small-cell lung cancer. She was last seen on 04/05/2024 and to receive C6 carbo + etoposide + atezolizumab. She received cycle 5 chemotherapy on 03/15/2024 and received received Zometa on 03/17/2024. The pt reports doing well and does not have any significant complaints or concerns today. She reports tolerating chemotherapy well without any other complaints or concerns. She did experience bone pain after receiving Zometa infusion, last treatment given on 03/17/2024. The patient reports that this pain usually starts after the infusion and lasts for about 3-4 days offand on with the severity of 4/10, and is relieved by ibuprofen. Patient was prescribed Percocet at the time of her initial diagnosis however she likes to avoid taking it. Patient reports not having any associated symptoms with this pain. Patient has significant RA, follows up with Rheumatology. She underwent PET scan and returns today to discuss the results on 04/29/2024 and to start maintenance atezolizumab. 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 11/20/2023: CT chest without IV contrast was performed for pulmonary nodule evaluation that showed a right hilar mass measuring approximately 6.8 x 5.0 cm encasing the right mainstem bronchus and bronchus intermedius with mild narrowing of the right mainstem bronchus and bronchus intermedius with no additional pulmonary nodules. There is a borderline enlarged precarinal lymph node measuring 1.0 cm in short axis. Multiple liver lesions, concerning for metastases, labor representative lesion in the posterior right hepatic lobe measures 3.7 x 2.6 cm. 12/04/2023: Bronchoscopy with EBUS with transbronchial biopsy of the Right upper lobe upper lobe showed High grade carcinoma, possible small cell carcinoma, expression of POU2F3 variant. Morphologically it is suspicious for small cell carcinoma. However, there is unusual immunophenotype. Tumor cells (40% cellularity) are nearly negative for neurroendocrine markers (CD56, synaptophysin, INSM-1, Chromogranin) and negative for TTF1. POU2F3 is focal but convincing positive. It probably represent a variant of small cell carcinoma. Tumor cells are also positive for AE1/3, CK7 (focal); negative for CDX2, P40, CK5/6. The MIB-1 proliferation index is approximately 90%. 4R lymph node EBUS transbronchial FNA nondiagnostic 12/08/2023 : PET scan shows bilateral palatine and lingual tonsils are enlarged with associated moderately increased FDG uptake with palatine fossa showing maximum SUV of 6.9 with no enlarged cervicallymph nodes. A large hypermetabolic right hilar mass SUV 17.2 with internal areas of necrosis seen within the mass. No evidence of hypermetabolic mediastinal lymphadenopathy. No pericardial effusion,no focal consolidation or pleural effusion. No mediastinal on axillary lymphadenopathy seen. Multiple hypermetabolic hypodense lesions are seen throughout the liver with largest lesion in the segment3 of the left lobe of the liver has maximum SUV of 12.4. No focal adrenal nodules or significant abd ominopelvic lymphadenopathy. Multiple hypermetabolic lytic lesions are seen involving bilateral iliac bones, right acetabulum and L4 vertebra. 12/22/2023: Started Cycle 1 Atezolizumab, Etoposide, and Carboplatin + peg- filgrastim given on day 4 to treat chemotherapy-induced neutropenia 01/13/2024: Started Cycle 2 Atezolizumab, Etoposide, and Carboplatin + peg- filgrastim given on day 4 to treat chemotherapy-induced neutropenia 02/02/2024: Started cycle 3 Atezolizumab, Etoposide, and Carboplatin + peg- filgrastim given on day 4 to treat chemotherapy-induced neutropenia 02/17/2024: Restaging PET scan performed for treatment response monitoring She underwent follow up/restaging PET scan on 02/17/2024 after completing 3 cycles of chemotherapy for treatment response monitoring that shows significant treatment response to the current treatmentand shows significantly decreased size and FDG avidity of the right hilar mass, currently measuringapproximally 18.8 x 44.1 mm axial (as compared to 49.8 x 67.7 mm axial on 11/20/2023 CT) and 8.92 SUV max. Central necrotic component of the more posterior aspect of the mass is again noted. There are no metabolically active axillary lymphadenopathy. A subtle area of increased metabolic activity (5.05 SUV max) at the posterosuperior subcapsular liver, segment 7 with multiple other hepatic hypermetabolic lesions resolved.Diffusely increased FDG activity throughout the skeletal structures which may be secondary to the injection of Pegfilgrastim. Lucent changes in the pelvis from the previously demonstrated hypermetabolic osseous metastasis are appreciated and are unchanged. Healing periostealreaction at the right lateral 9th rib. Subtle sclerotic focus at the anterolateral aspect of the right 6th rib. Stable treated pelvic lucent bone lesions. 02/23/2024: Patient presents for follow up and to be considered for cycle 4 Atezolizumab, Etoposide, and Carboplatin + pegfilgrastim given on day 4 to treat chemotherapy-induced neutropenia 03/15/2024: Cycle 5 Atezolizumab, Etoposide, and Carboplatin + pegfilgrastim 04/05/2024: Patient presents for follow up and to be considered for cycle 6 Atezolizumab, Etoposide, and Carboplatin + pegfilgrastim given on day 4 to treat chemotherapy-induced neutropenia Results for orders placed or performed in visit on 04/05/24 TSH WITH FREE T4 IF INDICATED Result Value Ref Range TSH 20.20 (H) 0.27 - 4.20 uIU/mL COMPREHENSIVE METABOLIC PANEL Result Value Ref Range BUN 7 6 - 20 mg/dL CREATININE 0.8 0.5 - 1.0 mg/dL EGFR 82 >=60 mL/min SODIUM 142 135 - 146 mmol/L POTASSIUM 3.6 3.5 - 5.1 mmol/L CHLORIDE 105 98 - 107 mmol/L CO2 25 22 - 32 mmol/L ANION GAP 12 7 - 15 mmol/L GLUCOSE 124 (H) 70 - 120 mg/dL Albumin 4.2 3.8 - 5.0 g/dL AST 26 10 - 35 U/L Alkaline Phosphatase 114 35 - 130 U/L Bilirubin, Total 0.2 <=1.2 mg/dL CALCIUM 9.7 8.4 - 10.2 mg/dL Protein 7.4 6.0 - 8.3 g/dL ALT 20 10 - 35 U/L CBC Result Value Ref Range WBC 6.75 4.00 - 10.80 K/uL RBC 3.26 3.85 - 5.15 M/uL HGB 11.0 (L) 12.0 - 15.3 g/dL HCT 35.0 (L) 36.0 - 45.2 % MCV 107.4 81.5 - 97.5 fL MCH 33.7 27.0 - 34.0 pg MCHC 31.4 32.0 - 36.0 g/dL RDW 15.9 11.5 - 15.5 % PLT 307 140 - 400 K/uL MPV 8.7 6.6 - 11.1 fL DIFFERENTIAL, AUTOMATED Result Value Ref Range WBC 6.75 4.00 - 10.80 K/uL Neutrophils % 49.4 40.0 - 75.0 % Lymphocytes % 34.4 18.0 - 42.0 % Monocytes % 14.8 (H) 1.0 - 11.0 % Eosinophils % 0.7 0.0 - 6.0 % Basophils % 0.7 0.0 - 2.0 % Absolute Neutrophils 3.33 1.80 - 7.70 K/uL Absolute Lymphocytes 2.32 1.00 - 4.80 K/ul Absolute Monocytes 1.00 0.00 - 1.10 K/uL Absolute Eosinophils 0.05 0.00 - 0.70 K/uL Absolute Basophils 0.05 0.00 - 0.20 K/uL T4, FREE Result Value Ref Range T4, Free 1.3 0.9 - 1.7 ng/dL *Note: Due to a large number of results and/or encounters for the requested time period, some results have not been displayed. A complete set of results can be found in Results Review. TSH Results: Lab Results Component Value Date/Time TSH - [facility] 20.20 (H) 04/05/2024 08:06 AM TSH - [facility] 12.30 (H) 03/15/2024 07:58 AM TSH - [facility] 18.40 (H) 02/23/2024 07:41 AM TSH - [facility] 6.04 (H) 05/19/2020 09:27 AM TSH - [facility] 2.98 06/01/2019 08:45 AM TSH - [facility] 2.57 05/08/2018 09:[address] SKULL BASE TO MID-THIGH FDG - 04/26/2024 10:23 am HISTORY treatment response monitoring COMPARISON PET CT SKULL BASE TO MID-THIGH FDG, ACC: [id number], dated 2023-12-08 09:40:52; CT CHEST WO CONTRAST, ACC: [id number], dated 2023-11-20 17:08:57 TECHNIQUE PET imaging was performed from the skull base to the mid thighs 53 minutes following the intravenous administration of 10.79 mCi of F-18 fluorodeoxyglucose (FDG) and the oral administration of Gastroview. Low-dose CT was performed for anatomic localization and attenuation correction purposes and fused with the PET images on a separate workstation. The patient's glucose level at the time of radiotracer injection was 114 mg/dL. This is a follow up PET/CT for the above indication. FINDINGS Maximum blood pool SUV: 2.9 Maximum hepatic SUV: 3.1 HEAD/NECK: Redemonstrated symmetric metabolic activity in the palatine and lingual tonsils which is likely inflammatory. No metabolically active cervical lymphadenopathy. Physiologic activity is present within the brain. CHEST: No metabolically active pulmonary nodules. Similar size of a 2.0 x 4.0 cm (previously 1.9 x 4.4 cm) right hilar mass with slightly increased metabolic activity, SUV 9.8 (previously 8.9). ABDOMEN/PELVIS: There are multiple new small foci of increased metabolic activity throughout the liver, concerning for new metastatic lesions. An example lesion is seen in the caudate lobe with an SUV 3.7. These arenot well seen on the noncontrast CT. Physiologic activity is present within the gastrointestinal and genitourinary systems. MUSCULOSKELETAL: There is diffusely increased metabolic activity throughout the spine and pelvis, likely secondary to Neupogen use. There are similar hypermetabolic lytic lesions in the L4 vertebral body and pelvis. ADDITIONAL CT FINDINGS: Lines/Devices: Right-sided MediPort terminating in the right atrium. Head/Neck: No acute findings. Chest: Redemonstrated right hilar mass as described above. Abdomen/Pelvis: Hepatic steatosis. Mild atherosclerosis. Cholecystectomy. Musculoskeletal/Other: See musculoskeletal above. IMPRESSION IMPRESSION 1. Similar size of a right hilar mass with slightly increased metabolic activity. 2. Multiple new small foci of increased metabolic activity throughout the liver, concerning for newmetastatic lesions. 3. Stable osseous metastatic disease. PMH: Patient Active Problem List Diagnosis Acquired hypothyroidism Tobacco use disorder Family history of diabetes mellitus Dyslipidemia, goal LDL below 130 Ovarian cyst Encounter for long-term (current) use of medications Black hairy tongue Hypertrophy of both inferior nasal turbinates Rhinitis, nonallergic Dysfunction of left eustachian tube Rheumatoid arthritis involving multiple sites with positive rheumatoid factor (HCC) Obesity, Class I, BMI 30.0-34.9 (see actual BMI) Prediabetes Small cell lung cancer, right (HCC) Metastatic adenocarcinoma to liver (HCC) Cancer, metastatic to bone (HCC) Encounter for antineoplastic chemotherapy Current Outpatient Medications Medication Sig Dispense Refill levoFLOXacin 750 MG Oral Tablet (Levaquin) Take 1 Tablet by mouth in the morning. 14 Tablet 0 OMEGA-3 FATTY ACIDS 1000 MG PO CAPS 0 Orencia 125 MG/ML Subcutaneous Solution Prefilled Syringe (Abatacept) INJECT 125 MG ( ONE SYRINGE )UNDER THE SKIN ONCE A WEEK (Patient not taking: Reported on 02/23/2024) 4 mL 11 Levothyroxine Sodium 100 MCG Oral Tablet (Levoxyl) Take 1 Tablet by mouth daily first thing in the morning. (at least 30 min prior to breakfast or other meds) 90 Tablet 3 Magic Swizzle (Sxsqjuwnp-Imnoqzyy-Syffhb) oral solution Swish and spit 15 mL in the morning and 15 mL before bedtime. 120 mL 1 Multivitamins Oral Capsule MULTIVITAMINS ORAL CAPSULE Triamcinolone Acetonide 55 MCG/ACT Nasal Aerosol (Nasacort Allergy 24HR) Methotrexate Sodium 2.5 MG Oral Tablet TAKE 6 TABLETS BY MOUTH ONE TIME PER WEEK 78 Tablet 1 Folic Acid 1 MG Oral Tablet TAKE 1 TABLET BY MOUTH EVERY DAY (Patient not taking: Reported on 02/23/2024) 90 Tablet 1 Ventolin HFA 108 (90 Base) MCG/ACT Inhalation Aerosol Solution Inhale 2 Puffs by mouth every 4 hours as needed for Shortness of Breath. (Patient not taking: Reported on 02/23/2024) 18 g 11 Prochlorperazine Maleate 10 MG [...] needed for RA flare 60 Tablet 2 Azithromycin 250 MG Oral Tablet (Zithromax Z-Dale) Take two tablets by mouth on first day, then 1 tablet daily until gone 6 Tablet 0 Current Facility-Administered Medications Medication Dose Route Frequency Provider Last Rate Last Admin Albuterol Sulfate (Proventil) (2.5 MG/3ML) 0.083% inhalation solution 2.5 mg 2.5 mg Nebulizer PRN 2.5 mg at 01/15/24 1445 Albuterol Sulfate (Proventil) (5 MG/ML) 0.5% *conc* inhalation solution 2.5 mg 2.5 mg Nebulizer PRN Facility-Administered Medications Ordered in Other Visits Medication Dose Route Frequency Provider Last Rate Last Admin NSS infusion Intravenous PRN Monica Ward MD 50 mL/hr at 04/29/24 1150 Start Infusion at 04/29/24 1150 hEParin 100 UNIT/ML Lock Flush inj 500 Units 5 mL IV Lock PRN Monica Ward MD sodium chloride 0.9 % flush central line 10 mL 10 mL IV Push PRN Monica Ward MD Atezolizumab (Tecentriq) 1,200 mg in NSS 250 mL infusion 1,200 mg IV Piggyback Once Monica Ward MD diphenhydrAMINE (Benadryl) inj 50 mg 50 mg IV Push Once PRN Monica Ward MD Hydrocortisone Sod Suc (PF) (Solu-Cortef) inj 100 mg 100 mg IV Push Once PRN Monica Ward MD EPINEPHrine 1 MG/ML inj 0.3 mg 0.3 mg Intramuscular Once PRN Monica Ward MD oxygen GAS Inhalation Oxygen Monica Ward MD Review of patient's allergies indicates: Allergen Reactions Clindamycin Hives Codeine "Stupor", drowsy Other Allergy (See Comments) Perfumes, hairspray, candles, etc. Sinus infections, headaches, very sensitive. Pcn [Penicillins] Hives ans swelling Sulfa Antibiotics Sick to her stomach Review of Systems Constitutional: Positive for activity change, appetite change and unexpected weight change. Negative for fever. HENT: Negative. Eyes: Negative. Respiratory: Negative for cough and shortness of breath. Gastrointestinal: Negative. Endocrine: Negative. Genitourinary: Negative. Musculoskeletal: Positive for arthralgias. Allergic/Immunologic: Negative. Neurological: Negative. Hematological: Negative. Psychiatric/Behavioral: Negative. Objective BP 159/80 (BP Site: Left Arm, BP Position: Sitting, BP Cuff Size: Regular) | Pulse 97 | Temp 37.2 C (98.9 F) (Tympanic) | Wt 87.8 kg (193 lb 8 oz) | LMP 09/07/2015 (Approximate) | SpO2 95% | BMI 34.07 kg/m | BSA 1.98 m Physical Exam Constitutional: Appearance: Normal appearance. HENT: Head: Normocephalic and atraumatic. Eyes: General: No scleral icterus. Conjunctiva/sclera: Conjunctivae normal. Cardiovascular: Rate and Rhythm: Normal rate and regular rhythm. Heart sounds: No murmur heard. Pulmonary: Effort: Pulmonary effort is normal. Breath sounds: Normal breath sounds. Abdominal: General: Abdomen is flat. Bowel sounds are normal. Palpations: Abdomen is soft. Musculoskeletal: Cervical back: Normal range of motion and neck supple. No tenderness. Lymphadenopathy: Cervical: No cervical adenopathy. Skin: Coloration: Skin is not jaundiced or pale. Findings: No bruising. Neurological: Mental Status: She is alert. Psychiatric: Mood and Affect: Mood normal. Behavior: Behavior normal. Thought Content: Thought content normal. Judgment: Judgment normal. 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 Right upper lobe mass biopsy showed findings as described above consistent with high-grade small cell lung cancer with Ki-67% of 90%. Patient's performance status ECOG 1. Initial PET scan showedseveral hepatic lesions as well as lytic osseous lesions. Started chemo+ immuno therapy with atezolizumab, carboplatin, etoposide - has completed 3 cycles with an interim PET scan showing excellent response. Also receiving Zometa to treat metastatic osseouslesions. She received cycle 4 of the above chemotherapy on 02/23/2024, tolerated treatment very well She received cycle 5 of the above chemotherapy on 03/15/2024 She has completed cycle 6 of the above chemotherapy on 04/05/2024. She underwent PET scan for follow up on 04/26/2024 that unfortunately shows progression of disease as follows: The right hilar mass is now 2.0 x 4.0 cm (previously 1.9 x 4.4 cm), now with metabolic activity of 9.8, previously 8.9 The multiple new small areas of increased metabolic activity throughout the liver for example an area in the caudate lobe that is SUV 3.7 these are not seen well on the noncontrast CT scan. Of note the maximum hepatic pool SUV is 3.1. Is diffuse metabolic activity that has increased throughout the spine and pelvis secondary to Neupogen use Similar hypermetabolic lytic lesion at L4 vertebral body and pelvis Metastatic adenocarcinoma to liver (HCC) (Primary) - levoFLOXacin 750 MG Oral Tablet (Levaquin); Take 1 Tablet by mouth in the morning. Small cell lung cancer, right (HCC) - levoFLOXacin 750 MG Oral Tablet (Levaquin); Take 1 Tablet by mouth in the morning. PLAN OF CARE DISCUSSED WITH PATIENT ON 04/29/2024 : Completed 6 cycles of Carboplatinum, etoposide and atezolizumab on 04/05/2024 Continue Zometa q.6 weeks, last dose of Zometa was given on 03/17/2024, next treatment to be given today 04/28/2024. Continue Citracal 1 tablet PO BID. PET scan after 3 cycles of chemotherapy showed excellent response, however the follow up PET scan performed after 6 cycles, on 04/26/2024 is reported as progression, however upon reviewing the PET scan films personally, it is apparent that there is minimal increase in the size/or stable (does not meet RECIST criteria for progression) : right hilar mass is now 2.0 x 4.0 cm (previously 1.9 x 4.4 cm), now with metabolic activity of 9.8, previously 8.9. The multiple new small areas of increased metabolic activity throughout the liver for example an area in the caudate lobe that is SUV 3.7 these are not seen well on the noncontrast CT scan. Of note the maximum hepatic pool SUV is 3.1. Is diffuse metabolic activity that has increased throughout the spine and pelvis secondary to Neupogen use. Similar hypermetabolic lytic lesion at L4 vertebral body and pelvis. After reviewing the above results that shows stable disease and no clear indication progression, itis recommended the patient starts maintenance atezolizumab-we will start on 04/28/2024. Other chemotherapy options were discussed with the patient include Lurbinectedin, Topotecan oral (PO) or intrave nous (IV), Irinotecani or Tarlatamab. All of these are associated with significant toxicities. The current PET scan results from 04/26/2024 are equivocal and does not warrant change treatment plan. MRI brain to assess for any brain metastases is scheduled to be performed later today on 04/28/2024. Ativan 0.5 mg p.o. three times daily p.r.n. for anxiety. Instructed the patient to take 2 tablets (total dose 1 mg) Ativan prior to the MRI brain on 04/20/2024 to help with symptoms of claustrophobia Follow up with Radiation Oncology (patient was seen on 12/22/[address] Henning at [facility]) regarding PCI- prophylactic brain XRT Close radiographic monitoring- will repeat PET scan in 6-8 weeks Follow-up: Return in about 3 weeks (around 05/20/2024). Start maintenance atezolizumab today Levofloxacin 750 mg po Q day x 14 days prescribed for right maxillary sinusitis. Monica Ward MD documented in this encounter Nursing Notes * Diya Raza MED ASSIST - 04/29/2024 10:32 AM EST Patient identifed by name and birthdate [...] it for you? ALREADY ACTIVE Filed Vitals: 04/29/24 1030 BP: 159/80 Pulse: 97 Temp: 37.2 C (98.9 F) TempSrc: Tympanic SpO2: 95% Weight: 87.8 kg (193 lb 8 oz) Patient was instructed to not get [...] Description 05/20/2024 9:00 AM EST Laboratory Laboratory [facility] [address] [place] [phone] [place], Lab Scenery [address] [facility] [place] [address] 05/20/2024 9:30 AM EST Office Visit Hematology/Oncology [facility] [address] [place] [phone] Monica Ward MD [address] [facility] [place] [phone] 05/20/2024 10:15 AM EST Hem/Onc Treatment Hematology/Oncology Treatment, [place] [address] [place] [address] [place], Chair 2 Hem Onc Scenery [address] [place] [address] 07/14/2024 3:00 PM EST Office Visit Pulmonary Medicine, [facility] [address] [facility] [place] [address] Eloy Pond MD [address] [place] [address] 10/15/2024 8:40 AM EDT Office Visit Rheumatology [address] [place] [phone] Samy Russo MD [address] [facility] [place] [address] Health Maintenance Due Date Last Done Comments [...] this encounter Medical Devices Implanted Type Area Collar Stitcher Device Identifier Shelf Expiration Date Model / Serial / Lot Port Implant W8f Poly Cath - [id number] Implanted:Qty : 1 on 12/31/2023 by Sin Burroughs MD at [facility] Right: Chest CR BARD : PERIPHERAL VASCULAR [id number] 10/09/2024 [id number] / / [id number] documented as of this encounter Visit Diagnoses Diagnosis Metastatic adenocarcinoma to liver (HCC)- Primary Secondary malignant neoplasm of liver Small cell lung cancer, right (HCC) documented in this encounter Care Teams Tubing Drier Relationship Specialty Start Date End Date Edel Clay MD [address] [place] [address] [place] [address] PCP - General Family Medicine 03/03/17 documented as of this encounter
--- OUTSIDE RECORDS SUMMARY | 2024-06-12 02:19 | External Medical Summary | Summary of Care ---
Author Name Unknown Organization [facility] Address [address] [place] [address] Phone [phone] Care Team Providers Care Range Operator Name Role Phone Edel Clay MD Primary Care Provide r Encounter Details Date Type Department Care Team (Late st Contact Info) Description 04/29/2024 Orders Only Hematology/Oncology [facility] [place] [address] [facility] [place] [address] Monica Ward MD [address] [facility] [place] [address] Cancer, metastatic to bone (HCC)*; Metastatic adenocarcinoma to liver (HCC); Small cell [...] 07/18/2008 06/01/2019 Overview (07/31/2009): thyroglobulin antibody >3000 [id number] 08/19/200608/10 Overview (08/25/2009): Renamed Per Clinical Trials Billing Project. Pt is a participant in the [employer] (Consortium of Rheumatology Researchers of [place]) national data collection study. For further information please call Dr Temo Castaneda or Kim Ríos, RN, CCRC at [phone] [facility] RESEARCH OTHER*[id number] 08/19/2006 11/06/2009 Overview (08/25/2009): Renamed Per Clinical Trials Billing Project. Pt is a participant in the [facility] (Consortium of Rheumatology Researchers of [facility]) national data collection study. For further information please call Dr Temo Castaneda or Kim Ríos, RN, CCRC at [phone] Arthritis, rheumatoid 07/01/20062016 Abnormal blood chemistry 05/02/2006 [...] Team (Late st Contact Info) Description 04/29/2024 11:00 AM EST Hem/Onc Treatment Hematology/Oncology Treatment, [place] [address] [place] [phone] [place], Chair 2 Hem Onc Scenery [address] [place] [address] Arrived 04/29/2024 3:30 PM EST [facility] [address] [facility] [place] [address] 07/14/2024 3:00 PM EST Office Visit Pulmonary Medicine, [facility] [address] [facility] [place] [address] Eloy Pond MD [address] [place] [address] 10/15/2024 8:40 AM EDT Office Visit Rheumatology [address] [place] [phone] Samy Russo MD [address] [facility] [place] [address] Pending Results Name Type Priority Associated Diagnoses Date /Time PHOSPHORUS Lab STAT Cancer, metastatic to bone (HCC) Metastatic adenocarcinoma to liver (HCC) Small cell lung cancer, right (HCC) 04/29/2024 10:00 AM EST Scheduled Orders Name Type Priority Associated Diagnoses Orde r Schedule PHOSPHORUS Lab STAT Cancer, metastatic to bone (HCC) Metastatic adenocarcinoma to liver (HCC) Small cell lung cancer, right (HCC) Expected: 04/29/2024, Expires: 04/29/2025 Health Maintenance Due Date Last Done Comments [...] this encounter Medical Devices Implanted Type Area Application Support Consultant Device Identifier Shelf Expiration Date Model / Serial / Lot Port Implant W8f Poly Cath - [id number] Implanted:Qty : 1 on 12/31/2023 by Sin Burroughs MD at OR [facility] Right: Chest CR BARD : PERIPHERAL VASCULAR [id number] 10/09/2024 [id number] / / [id number] documented as of this encounter Visit Diagnoses Diagnosis Cancer, metastatic to bone (HCC)- Primary Secondary malignant neoplasm of bone and bone marrow Metastatic adenocarcinoma to liver (HCC) Secondary malignant neoplasm of liver Small cell lung cancer, right (HCC) documented in this encounter Care Teams Range Operator Relationship Specialty Start Date End Date Edel Clay MD [address] [place] [address] [place] [address] PCP - General Family Medicine 03/03/17 documented as of this encounter
--- OUTSIDE RECORDS SUMMARY | 2024-06-12 02:19 | External Medical Summary | Summary of Care ---
Author Name Unknown Organization [facility] Address [address] [place] [address] Phone [phone] Care Team Providers Care Hog Scraper Name Role Phone Edel Clay MD Primary Care Provide r Reason for Visit * Reason Onset Date Comments Test Results 04/29/2024 MRI brain result s Encounter Details Date Type Department Care Team ([facility] st Contact Info) Description 04/26/2024 Telephone Hematology/Oncology, [address] [address] Monica Ward MD [address] [place] [address] Test Results (MRI brain results ) Allergies Active Allergy Reactions Criticality Noted Date [...] 07/18/2008 06/01/2019 Overview (07/31/2009): thyroglobulin antibody >3000 [id number] 08/19/200608/10 Overview (08/25/2009): Renamed Per Clinical Trials Billing Project. Pt is a participant in the [employer] (Consortium of Rheumatology Researchers of [facility]) national data collection study. For further information please call Dr Temo Castaneda or Kim Ríos, RN, CCRC at [phone] [facility] RESEARCH OTHER*[id number] 08/19/2006 11/06/2009 Overview (08/25/2009): Renamed Per Clinical Trials Billing Project. Pt is a participant in the [facility] (Consortium of Rheumatology Researchers of [facility]) national data collection study. For further information please call Dr Temo Castaneda or Kim Ríos, RN, CCRC at [phone] Arthritis, rheumatoid 07/01/20062016 Abnormal blood chemistry 05/02/2006 [...] encounter Miscellaneous Notes * Telephone Encounter - Monica Ward MD - 04/29/2024 6:30 PM EST Called patient to discuss/inform the abnormal MRI brain results- shows an area 10 mm acute infarct in the right basal ganglia, no lesions concerning for mets/vasogenic edema or bleed seen. Patient seen earlier today in clinic- no signs or symptoms of CVA noted. * Telephone Encounter - Monica Ward MD - 04/26/2024 12:45 PM EST PRIMARY THERAPY FOR EXTENSIVE STAGE SCLC: Preferred Regimen: Carboplatin AUC 5 day 1 and Etoposide 100 mg/m2 to be given on days 1, 2, 3 and atezolizumab 1200 mg day 1 every 21 days x 6 cycles followed by maintenance atezolizumab 1200 mg day1, every 21 days (category 1 for all) (Four cycles of cytotoxic chemotherapy are recommended, but some patients may receive up to 6 cycles based on response and tolerability after 4 cycles). Patient was completed a total of 6 cycles of the above regimen on 04/05/2024. PET scan performed 04/26/2024 for treatment response monitoring shows progressive disease with a right hilar mass that is similar in size that currently measures 2.0 x 4.0 cm and previously measured 1.9 x 4.4 cm with slightly increased metabolic activity, SUV 9.8 (previously SUV 8.9). In the abdomen, there are multiple new small foci of increased metabolic activity throughout the liver, concerning for new metastatic lesions, such as a new lesion seen in the caudate lobe with an SUV 3.7. There is diffusely increased metabolic activity throughout the spine and pelvis, likely secondary to Neupogen use. There are similar hypermetabolic lytic lesions in the L4 vertebral body and pelvis. Images reviewed Her previous PET scan on 02/17/2024 had shown significantly decreased size and FDG avidity of the right hilar mass, measuring approximally 1.88 x 4.41 cm as compared to 4.98 [address] scan chest performed on 11/20/2023 CT with an SUV index of 8.92 max. There is a central necrotic component ofthe more posterior aspect of the mass that is once again noted. No metabolically active axillary lymphadenopathy. In the abdomen, the liver the hepatic hypermetabolic lesions had resolved with the exception of a subtle area of increased metabolic activity (5.05 SUV max) at the posterosuperior subcapsular liver in segment 7. Diffusely increased FDG activity throughout the skeletal structures whichmay be secondary to the injection of Pegfilgrastim on 02/05/2024. Underlying metastatic disease is not completely excluded. Lucent changes in the pelvis from the previously demonstrated hypermetabolic osseous metastasis are appreciated and are unchanged. Healing periosteal reaction at the right lateral 9th rib. Subtle sclerotic focus at the anterolateral aspect of the right 6th rib. Stable treated pelvic lucent bone lesions. 12/08/2023: PET scan (initial staging) showed a large hypermetabolic right hilar mass was noted with markedly increased FDG uptake and maximum SUV of 17.2 with internal areas of reduced FDG uptake are seen within the mass, compatible with necrosis. No evidence of hypermetabolic mediastinal lymphadenopathy. Multiple hypermetabolic hypodense lesions are seen throughout the liver with largest lesion in the segment 3 of the left lobe of the liver has maximum SUV of 12.4. Multiple hypermetabolic lytic lesions are seen involving bilateral iliac bones, right acetabulum and L4 vertebra. CT chest without contrast performed on 11/20/2023 had shown a large right hilar mass measuring approximately 6.8 x 5.0 cm, encasing the right mainstem bronchus and bronchus intermedius with mild narrowing of the right mainstem bronchus and bronchus intermedius. No other additional pulmonary nodules, pleural effusion pneumothorax was seen. The borderline enlarged precarinal lymph node measuring 1.0 cm in short axis. There are multiple liver lesions concerning for metastases with the open claims representative lesion in the posterior right hepatic lobe measuring 3.7 x 2.6 cm SCLC SUBSEQUENT SYSTEMIC THERAPY (PS 0-2) CTFI <=6 MONTHS Preferred Regimens Clinical trial enrollment Lurbinectedin Topotecan oral (PO) or intravenous (IV) Irinotecan Tarlatamab Other Recommended Regimens Paclitaxel Temozolomide Cyclophosphamide/doxorubicin/vincristine (CAV) Docetaxel Gemcitabine Oral etoposide documented in this encounter Plan of Treatment Upcoming Encounters Date Type Department Care Team (Late st Contact Info) Description 05/20/2024 9:00 AM EST Laboratory Laboratory [facility] [place] [address] [place] [phone] [place], Lab Scenery [address] [facility] [place] [address] 05/20/2024 9:30 AM EST Office Visit Hematology/Oncology [facility] [place] [address] [place] [phone] Monica Ward MD [address] [place] [address] [place] [phone] 05/20/2024 10:15 AM EST Hem/Onc Treatment Hematology/Oncology Treatment, [place] [address] [place] [phone] [place], Chair 2 Hem Onc [facility] [address] [facility] [place] [address] 07/14/2024 3:00 PM EST Office Visit Pulmonary Medicine, [facility] [address] [facility] [address] Eloy Pond MD [address] [place] [facility] [place] [address] 10/15/2024 8:40 AM EDT Office Visit Rheumatology [address] [place] [phone] Samy Russo MD [address] [facility] [place] [address] Health Maintenance Due Date Last Done Comments [...] this encounter Medical Devices Implanted Type Area Sports Equipment Repairer Device Identifier Shelf Expiration Date Model / Serial / Lot Port Implant W8f Poly Cath - [id number] Implanted:Qty : 1 on 12/31/2023 by Sin Burroughs MD at OR [facility] Right: Chest CR BARD : PERIPHERAL VASCULAR [id number] 10/09/2024 [id number] / / [id number] documented as of this encounter Care Teams Hog Scraper Relationship Specialty Start Date End Date Edel Clay MD [address] [place] [address] [place] [address] PCP - General Family Medicine 03/03/17 documented as of this encounter
--- OUTSIDE RECORDS SUMMARY | 2024-06-12 02:20 | External Medical Summary | Summary of Care ---
Author Name Unknown Organization [facility] Address [address] [place] [address] Phone [phone] Care Team Providers Care Corporate Representative Name Role Phone Edel Clay MD Primary Care Provide r Reason for Visit * Reason Comments Chemotherapy Day 1, cycle 5 atezo lizumab, carboplatin, etoposide * Episode Based Medications (Routine) - Authorized Specialty Diagnoses / Procedures Referred By Contac t Referred To Contact Diagnoses Encounter for antineoplastic chemotherapy Cancer, metastatic to bone (HCC) Metastatic adenocarcinoma to liver (HCC) Small cell lung cancer, right (HCC) Procedures [place] CARBOPLATIN INJECTION MN FOSAPREPITANT INJECTION MN ETOPOSIDE 10 MG INJ MN INJ, ATEZOLIZUMAB,10 MG MN INJECTION, Monica Anderson MD [address] [place] [address] [place] [address] Phone: tel: fax: Hematology/Oncology Treatment, [address] [address] Phone: tel: fax: Referral ID Status Reason Start Date Expiration Date V isits Requested Visits Authorized [id number] Authorized 12/17/2023 06/13/2024 [id number] Encounter Details Date Type Department Care Team (Latest Contact Info) Description 03/15/2024 9:00 AM EST Hem/Onc Treatment Hematology/Oncolog y Treatment, [address] [place] [address] [place], Chair 5 Hem On[address] [address] Encounter for antineoplastic chemotherapy*; Cancer, metastatic [...] as of this encounter (statuses as of 04/20/2024) Medications OMEGA-3 FATTY ACIDS 1000 MG PO CAPS 0 007 Active Orencia 125 MG/ML Subcutaneous Solution Prefilled Syringe (Abatacept)Indica tions:Rheumatoid arthritis involving multiple sites with positive rheumatoid factor (HCC) INJECT 125 MG ( ONE SYRINGE ) UNDER THE SKIN ONCE A WEEK 4 mL 11 023 Active Additional Information Patient not taking.Reported on 02/23/2024 Levothyroxine Sodium 100 MCG Oral Tablet (Levoxyl)Indicati ons:Acquired hypothyroidism Take 1 Tablet by mouth daily first thing in the morning. (at least 30 min prior to breakfast or other meds) 90 Tablet 3 024 Active Magic Swizzle (Lidocaine-Benadr yl-Maalox) oral solution Swish and spit 15 mL in the morning and 15 mL before bedtime. 120 mL 1 024 Active Multivitamins Oral Capsule MULTIVITAMINS ORAL CAPSULE Active Triamcinolone Acetonide 55 MCG/ACT Nasal Aerosol (Nasacort Allergy 24HR) Active Methotrexate Sodium 2.5 MG Oral Tablet TAKE 6 TABLETS BY MOUTH ONE TIME PER WEEK 78 Tablet 1 024 Active Folic Acid 1 MG Oral TabletIndications :Rheumatoid arthritis involving multiple sites with positive rheumatoid factor (HCC) TAKE 1 TABLET BY MOUTH EVERY DAY 90 Tablet 1 024 Active Additional Information Patient not taking.Reported on 02/23/2024 Ventolin HFA 108 (90 Base) MCG/ACT Inhalation Aerosol Solution Inhale 2 Puffs by mouth every 4 hours as needed for Shortness of Breath. 18 g 11 Active Additional Information Patient not taking.Reported on 02/23/2024 Prochlorperazine Maleate 10 MG Oral Tablet (Compazine)Indica tions:Encounter for antineoplastic chemotherapy,Canc er, metastatic to bone (HCC),Metastatic adenocarcinoma to liver (HCC),Small cell lung cancer, right (HCC) Take 1 Tablet by mouth every 6 hours as needed for Nausea. 30 Tablet 5 Active Lidocaine-Priloca ine 2.5-2.5 % External Cream (Emla)Indications :Small cell lung cancer, right (HCC),Metastatic adenocarcinoma to liver (HCC),Cancer, metastatic to bone (HCC) APPLY TO SKIN OVER MEDIPORT & COVER 1HR PRIOR TO ACCESSING. 30 g 1 Active oxyCODONE-Acetami nophen 5-325 MG/5ML Oral Solution (Roxicet) Take by mouth every 4 hours as needed. Active dexAMETHasone 4 MG Oral Tablet (Decadron)Indicat ions:Encounter for antineoplastic chemotherapy,Canc er, metastatic to bone (HCC),Metastatic adenocarcinoma to liver (HCC),Small cell lung cancer, right (HCC) Take 2 Tablets by mouth in the morning. With food on days 2, 3, and 4 of chemo.. 12 Tablet Active OLANZapine 10 MG Oral Tablet (zyPREXA)Indicati ons:Encounter for antineoplastic chemotherapy,Canc er, metastatic to bone (HCC),Metastatic adenocarcinoma to liver (HCC),Small cell lung cancer, right (HCC) Take 1 Tablet by mouth at bedtime. On days 1, 2, 3, and 4 of chemo. 8 Tablet Active Azelastine HCl 137 MCG/SPRAY Nasal SolutionIndicatio ns:Rhinitis, nonallergic SPRAY 2 SPRAYS INTO EACH NOSTRIL IN THE MORNING AND BEFORE BEDTIME 90 mL 3 024 2023 Discontinued Hospital, Clinic, or Other Facility Administered Medication Ordered Dose Route Frequency Start Date End Date Status Albuterol Sulfate (Proventil) (2.5 MG/3ML) 0.083% inhalation solution 2.5 mgIndications:Mass of right lung 2.5 mg NEBULIZER PRN 12/10/2023 Active Albuterol Sulfate (Proventil) (5 MG/ML) 0.5% *conc* inhalation solution 2.5 mgIndications:Mass of right lung 2.5 mg NEBULIZER PRN 12/10/2023 Active documented as of this encounter (statuses as of 04/20/2024) Active Problems Problem Noted Date Diagnosed Date [...] as of this encounter (statuses as of 04/20/2024) Resolved Problems Problem Noted Date Diagnosed Date [...] 07/18/2008 06/01/2019 Overview (07/31/2009): thyroglobulin antibody >3000 [id number] 08/19/200608/10 Overview (08/25/2009): Renamed Per Clinical Trials Billing Project. Pt is a participant in the [facility] (Consortium of Rheumatology Researchers of [place]) national data collection study. For further information please call Dr Temo Castaneda or Kim Ríos, RN, CCRC at [phone] [facility] RESEARCH OTHER*[id number] 08/19/2006 11/06/2009 Overview (08/25/2009): Renamed Per Clinical Trials Billing Project. Pt is a participant in the [facility] (Consortium of Rheumatology Researchers of [place]) national data collection study. For further information please call Dr Temo Castaneda or Kim Ríos, RN, CCRC at [phone] Arthritis, rheumatoid 07/01/20062016 Abnormal blood chemistry 05/02/2006 [...] as of this encounter (statuses as of 04/20/2024) Immunizations Name Administration Dates Next Due COVID-19 [...] Types Packs/Day Years Used Date Smoking Tobacco: Former Cigarettes 1 28 S tarted: 12/04/1995 Smokeless Tobacco: Never Alcohol Use Standard [...] as of this encounter Nursing Notes * Adalgisa Fuentes RN - 03/15/2024 1:05 PM EST Infusion complete. Patient tolerated well Goals: Patient will remain free from injury. Possible barriers to meeting goals: ambulating with IV pump/pole Stability of the patient: Moderately stable - low risk of patient condition declining or worsening Summary regarding today's goals: Met: Patient remained free from harm/injury during treatment. VAD with + blood return, flushed with 10 ml NSS and Heparin 5 ml (100 units/ml). Rogel needle removed intact. Dry dressing applied. Spoke with Dr. Ward for patient's upcoming appointments. Delio due on , ok to give on Friday that week. Patient left facility in stable condition. * Adalgisa Fuentes RN - 03/15/2024 12:46 PM EST Chair 3, patient here for treatment following provider visit. Patient with no complaints. VAD accessed without difficulty + blood return, flushed with 10 ml NSS and dressing applied. Chemotherapy/Immunotherapy agents: tecentiq, CARBOPLATIN, and ETOPOSIDE Consent for chemotherapy drug treatment complete, dated, and signed? yes, date - 12/12/23 Treatment lab parameters met? Yes Has treatment weight changed > than 10%? No Treatment preauthorized? Yes VITALS Filed Vitals: Urine protein: N/A Patient education completed for [...] Care Team (Late st Contact Info) Description 04/26/2024 7:45 AM EST Imaging Radiology [address] [address] 04/29/2024 10:00 AM EST Laboratory Laboratory [facility] [address] [place] [address] [place], Lab Scenery [address] [facility] [place] [address] 04/29/2024 10:30 AM EST Office Visit Hematology/Oncology [facility] [address] [facility] [place] [phone] Monica Ward MD [address] [place] [address] [place] [address] 04/29/2024 11:00 AM EST Hem/Onc Treatment Hematology/Oncology Treatment, [place] [address] [place] [phone] [place], Chair 2 Hem Onc Scenery [address] [place] [address] 04/29/2024 3:30 PM EST Imaging Radiology [address] [place] [address] 07/14/2024 3:00 PM EST [facility] [address] [place] [address] Eloy Pond MD [address] [place] [address] 10/15/2024 8:40 AM EDT Office Visit Rheumatology [address] [place] [phone] Samy Russo MD [address] [facility] [place] [address] Health Maintenance Due Date Last Done Comments [...] 08/29/2020, Additional history exists TSH 04/05/2025 04/05/2024, 11/0 08/2023, 02/23/2024, Additional history exists Lipid Panel [...] this encounter Medical Devices Implanted Type Area Occupational Therapy Program Director Device Identifier Shelf Expiration Date Model / Serial / Lot Port Implant W8f Poly Cath - [id number] Implanted:Qty : 1 on 12/31/2023 by Sin Burroughs MD at OR [facility] Right: Chest CR BARD : PERIPHERAL VASCULAR [id number] 10/09/2024 [id number] / / [id number] documented as of this encounter Visit Diagnoses [...] mg, IV Piggyback, ONCE, 1 dose, On 03/15/24 at 1030, Administer over 60 Minutes, Administer first infusion over 60 minutes and if tolerated, subsequent doses may be infused over 30 minutes.Indications:Encoun ter for antineoplastic chemotherapy,Cancer, metastatic to bone (HCC),Metastatic adenocarcinoma to liver (HCC),Small cell lung cancer, right (HCC) Start Infusion 03/15/2024 10:26 AM EST 1,200 mg 550 mL/hr CARBOplatin (Paraplatin) 483 mg in D5W 250 mL infusion 483 mg (rounded from 482.5 mg, Target AUC = 5), IV Piggyback, at 510 mL/hr Administer over 30 Minutes, PROTECT FROM LIGHT (Max Creatinine Clearance at 125 ml/min for calculating AUC dose), ONCE, 1 dose, On Fri03/15/24 at 1215Indications:Encounter for antineoplastic chemotherapy,Cancer, metastatic to bone (HCC),Metastatic adenocarcinoma to liver (HCC),Small cell lung cancer, right (HCC) Start Infusion 03/15/2024 11:08 AM EST 483 mg 510 mL/hr etoposide (VEPESID) 190 mg in NSS 500 mL infusion 190 mg (rounded from 193 mg = 100 mg/m2 1.93 m2 Treatment Plan BSA from Recorded weight), IV Piggyback, ONCE, 1 dose, On Fri03/15/24 at 1245, Administer over 60 Minutes, Recommended concentration is less than or equal to 0.4 mg/mL. If concentration is greater than 0.4 mg/mL recommend to administer through 0.22 micron low protein binding filter.Indications:Encount er for antineoplastic chemotherapy,Cancer, metastatic to bone (HCC),Metastatic adenocarcinoma to liver (HCC),Small cell lung cancer, right (HCC) Start Infusion 03/15/2024 11:47 AM EST 190 mg 519.5 mL/hr Fosaprepitant Dimeglumine (Emend) 150 mg, ondansetron (Zofran) 16 mg, dexamethasone sodium phosphate 12 mg in NSS 250 mL Infusion 150 mg, IV Piggyback, ONCE, 1 dose, On Fri03/15/24 at 1045, Administer over 30 Minutes, Infuse over 30 minutes. Give 30 minutes prior to chemotherapy.Indications:E ncounter for antineoplastic chemotherapy,Cancer, metastatic to bone (HCC),Metastatic adenocarcinoma to liver (HCC),Small cell lung cancer, right (HCC) Start Infusion 03/15/2024 9:46 AM EST 150 mg 538.4 mL/hr hEParin 100 UNIT/ML Lock Flush inj 500 Units 500 Units (5 mL), IV Lock, PRN Other, IV Flush, Starting on Fri03/15/24 at 0939, Until Fri03/15/24 at 1933, For 24 hours, Do not flush if lock, PICC, or central line not in place; IV infusing or unable to flush.Indications:Encounte r for antineoplastic chemotherapy,Cancer, metastatic to bone (HCC),Metastatic adenocarcinoma to liver (HCC),Small cell lung cancer, right (HCC) Given 03/15/2024 12:53 PM EST 500 Units NSS infusion Intravenous, at 50 mL/hr, PRN, Starting on Fri03/15/24 at 1045, Until Fri03/15/24 at 1933, Maintenance lineIndications:Encounter for antineoplastic chemotherapy,Cancer, metastatic to bone (HCC),Metastatic adenocarcinoma to liver (HCC),Small cell lung cancer, right (HCC) Start Infusion 03/15/2024 9:40 AM EST 50 mL/hr sodium chloride 0.9 % flush central line 10 mL 10 mL, IV Push, PRN Other, IV Flush, Starting on Fri03/15/24 at 0939, Until Fri03/15/24 at 1933, For 24 hours, Do not flush if lock, PICC, or central line not in place; IV infusing or unable to flush.Indications:Encounte r for antineoplastic chemotherapy,Cancer, metastatic to bone (HCC),Metastatic adenocarcinoma to liver (HCC),Small cell lung cancer, right (HCC) Given 03/15/2024 12:53 PM EST 10 mL documented in this encounter Care Teams Corporate Representative Relationship Specialty Start Date End Date Edel Clay MD [address] [place] [address] [place] [address] PCP - General Family Medicine 03/03/17 documented as of this encounter
--- OUTSIDE RECORDS SUMMARY | 2024-06-12 02:20 | External Medical Summary | Summary of Care ---
Author Name Unknown Organization [facility] Address [address] [place] [address] Phone [phone] Care Team Providers Care Tanner Rotary Drum Continuous Process Name Role Phone Edel Clay MD Primary Care Provide r Reason for Visit * Reason Comments Chemotherapy C5 D2 Etoposide * Episode Based Medications (Routine) - Authorized Specialty Diagnoses / Procedures Referred By Contac t Referred To Contact Diagnoses Encounter for antineoplastic chemotherapy Cancer, metastatic to bone (HCC) Metastatic adenocarcinoma to liver (HCC) Small cell lung cancer, right (HCC) Procedures [place] CARBOPLATIN INJECTION MS FOSAPREPITANT INJECTION MS ETOPOSIDE 10 MG INJ MS INJ, ATEZOLIZUMAB,10 MG MS INJECTION, Monica Anderson MD [address] [facility] [place] [address] Phone: tel: fax: Hematology/Oncology Treatment, [address] [place] [address] Phone: tel: fax: Referral ID Status Reason Start Date Expiration Date V isits Requested Visits Authorized [id number] Authorized 12/17/2023 06/13/2024 [id number] Encounter Details Date Type Department Care Team (Latest Contact Info) Description 03/16/2024 8:45 AM EST Hem/Onc Treatment Hematology/Oncolog y Treatment, [address] [address] [place], Chair 2 Hem Onc [address] [id number] Encounter for antineoplastic chemotherapy*; Cancer, metastatic to [...] 07/18/2008 06/01/2019 Overview (07/31/2009): thyroglobulin antibody >3000 [id number] 08/19/200608/10 Overview (08/25/2009): Renamed Per Clinical Trials Billing Project. Pt is a participant in the [facility] (Consortium of Rheumatology Researchers of [place]) national data collection study. For further information please call Dr Temo Castaneda or Kim Ríos, RN, CCRC at [phone] [facility] RESEARCH OTHER*[id number] 08/19/2006 11/06/2009 Overview (08/25/2009): Renamed Per Clinical Trials Billing Project. Pt is a participant in the [facility] (Consortium of Rheumatology Researchers of [facility]) national data collection study. For further information please call Dr Temo Castaneda or Kim Ríos, RN, CCRC at [phone] Arthritis, rheumatoid 07/01/20062016 Abnormal blood chemistry 05/02/2006 [...] Sign Reading Time Taken Comments Blood Pressure 124/76 03/16/2024 8:55 AM EST Pulse 80 03/16/2024 8:55 AM EST Temperature 36.6 C (97.9 F) 03/16/2024 8:55 AM ES T Respiratory Rate 18 03/16/2024 8:55 AM EST Oxygen Saturation 98% 03/16/2024 8:55 AM EST Inhaled Oxygen Concentration - - Weight - - Height - - Body Mass Index - - documented in this encounter Nursing Notes * Francine Lewis RN - 03/16/2024 12:39 PM EST Patient tolerated treatment without difficulty. VAD with brisk blood return and flushed with 10 ml NSS and Heparin 5 ml (100 units/ml). Rogel needle removed intact. Goals: Patient will remain free from injury. Possible barriers to meeting goals: Ambulating with IV pole Stability of the patient: Moderately stable - low risk of patient condition declining or worsening Summary regarding today's goals: Met: Patient remained free from harm. Pt discharged in stable condition. * Francine Lewis RN - 03/16/2024 9:57 AM EST Chair 3 Patient here for treatment. Patient offers no acute complaints. Port accessed with brisk blood return. Chemotherapy/Immunotherapy agents: ETOPOSIDE Consent for chemotherapy drug treatment complete, dated, and signed? yes, date - 12/12/23 Treatment lab parameters met? No new labs Has treatment weight changed > than 10%? no new weight Treatment preauthorized? Yes VITALS Filed Vitals: 03/16/24 0855 BP: 124/76 Pulse: 80 Resp: 18 Temp: 36.6 C (97.9 F) SpO2: 98% Urine protein: N/A Patient education completed for treatment? Yes Blood transfusion consent signed and complete? NA Return appointment scheduled? Yes Patient had provider visit today? No - If no provider visit must complete Pretreatment Assessment Functional Status: Functional status at today's visit: [...] potential aburto while using the heat function. PRE-TREATMENT ASSESSMENT: NEURO: denies symptoms CV/RESP: denies symptoms GI/: denies symptoms OTHER: denies any additional symptoms PAIN: 0 Safety and Risk for Injury Patient will remain free from injury. Ensure appropriate safety devices are available. Provide and maintain safe environment. documented in this encounter Plan of Treatment Upcoming Encounters Date Type Department Care Team (Late st Contact Info) Description 04/26/2024 7:45 AM EST Imaging Radiology [address] [place] [address] 04/29/2024 10:00 AM EST Laboratory Laboratory [facility] [address] [facility] [place] [phone] [address] [facility] [place] [address] 04/29/2024 10:30 AM EST Office Visit Hematology/Oncology [facility] [address] [place] [phone] Monica Wrad MD [address] [place] [address] [place] [address] 04/29/2024 11:00 AM EST Hem/Onc Treatment Hematology/Oncology Treatment, [place] [address] [place] [phone] [place], Chair 2 Hem Onc Scenery [address] [place] [address] 04/29/2024 3:30 PM EST Imaging Rad[facility] [address] [facility] [place] [address] 07/14/2024 3:00 PM EST Office Visit Pulmonary Medicine, [facility] [address] [facility] [place] [address] El[facility]ond [facility] [address] [facility] [address] 10/15/2024 8:40 AM EDT Office Visit Rheumatology [address] [place] [phone] Samy Russo MD [address] [place] [address] Health Maintenance Due Date Last Done Comments [...] this encounter Medical Devices Implanted Type Area Dirt Supervisor Device Identifier Shelf Expiration Date Model / Serial / Lot Port Implant W8f Poly Cath - [id number] Implanted:Qty : 1 on 12/31/2023 by Sin Burroughs MD at OR [facility] Right: Chest CR BARD : PERIPHERAL VASCULAR [id number] 10/09/2024 [id number] / / [id number] documented as of this encounter Visit Diagnoses [...] MAR Action Action Date Dose Rate Site etoposide (VEPESID) 190 mg in NSS 500 mL infusion 190 mg (rounded from 193 mg = 100 mg/m2 1.93 m2 Treatment Plan BSA from Recorded weight), IV Piggyback, ONCE, 1 dose, On Fri03/16/24 at 1045, Administer over 60 Minutes, Recommended concentration is less than or equal to 0.4 mg/mL. If concentration is greater than 0.4 mg/mL recommend to administer through 0.22 micron low protein binding filter.Indications:Encount er for antineoplastic chemotherapy,Cancer, metastatic to bone (HCC),Metastatic adenocarcinoma to liver (HCC),Small cell lung cancer, right (HCC) Start Infusion 03/16/2024 9:46 AM EST 190 mg 519.5 mL/hr hEParin 100 UNIT/ML Lock Flush inj 500 Units 500 Units (5 mL), IV Lock, PRN Other, IV Flush, Starting on Fri03/16/24 at 0910, Until Fri03/16/24 at 2110, For 24 hours, Do not flush if lock, PICC, or central line not in place; IV infusing or unable to flush.Indications:Encounte r for antineoplastic chemotherapy,Cancer, metastatic to bone (HCC),Metastatic adenocarcinoma to liver (HCC),Small cell lung cancer, right (HCC) Given 03/16/2024 11:11 AM EST 500 Units NSS infusion Intravenous, at 50 mL/hr, PRN, Starting on Fri03/16/24 at 1015, Until Fri03/16/24 at 2110, Maintenance lineIndications:Encounter for antineoplastic chemotherapy,Cancer, metastatic to bone (HCC),Metastatic adenocarcinoma to liver (HCC),Small cell lung cancer, right (HCC) Start Infusion 03/16/2024 9:25 AM EST 50 mL/hr ondansetron (Zofran) tab 8 mg 8 mg, Oral, ONCE, On Fri03/16/24 at 0930, For 1 dose, Give 30 minutes prior to chemotherapy.Indications:E ncounter for antineoplastic chemotherapy,Cancer, metastatic to bone (HCC),Metastatic adenocarcinoma to liver (HCC),Small cell lung cancer, right (HCC) Given 03/16/2024 9:26 AM EST 8 mg sodium chloride 0.9 % flush central line 10 mL 10 mL, IV Push, PRN Other, IV Flush, Starting on Fri03/16/24 at 0910, Until Fri03/16/24 at 2110, For 24 hours, Do not flush if lock, PICC, or central line not in place; IV infusing or unable to flush.Indications:Encounte r for antineoplastic chemotherapy,Cancer, metastatic to bone (HCC),Metastatic adenocarcinoma to liver (HCC),Small cell lung cancer, right (HCC) Given 03/16/2024 11:11 AM EST 10 mL documented in this encounter Care Teams Tanner Rotary Drum Continuous Process Relationship Specialty Start Date End Date Edel Clay MD [address] [place] [address] [place] [address] PCP - General Family Medicine 03/03/17 documented as of this encounter
--- OUTSIDE RECORDS SUMMARY | 2024-06-12 02:20 | External Medical Summary | Summary of Care ---
Author Name Unknown Organization [facility] Address [address] [place] [address] Phone [phone] Care Team Providers Care Feather Stitcher Name Role Phone Edel Clay MD Primary Care Provide r Reason for Visit * Reason Comments Chemotherapy Day 3, cycle 5 etopo side, zometa * Episode Based Medications (Routine) - Authorized Specialty Diagnoses / Procedures Referred By Contac t Referred To Contact Diagnoses Encounter for antineoplastic chemotherapy Cancer, metastatic to bone (HCC) Metastatic adenocarcinoma to liver (HCC) Small cell lung cancer, right (HCC) Procedures MO CARBOPLATIN INJECTION MO FOSAPREPITANT INJECTION MO ETOPOSIDE 10 MG INJ MO INJ, ATEZOLIZUMAB,10 MG MO INJECTION, Monica Anderson MD [address] [place] [address] [place] [address] Phone: tel: fax: Hematology/Oncology Treatment, [address] [place] [address] Phone: tel: fax: Referral ID Status Reason Start Date Expiration Date V isits Requested Visits Authorized [id number] Authorized 12/17/2023 06/13/2024 [id number] Encounter Details Date Type Department Care Team (Latest Contact Info) Description 03/17/2024 12:30 PM EST Hem/Onc Treatment Hematology/Oncolog y [address], [address] [address] [place], Chair 7 Hem Onc [address] [address] Malignant neoplasm of upper-outer quadrant of right breast in female, estrogen receptor positive (HCC)*; Cancer, metastatic to bone (HCC); Small cell lung cancer, right (HCC); Encounter for antineoplastic chemotherapy; Metastatic adenocarcinoma to liver (HCC) Allergies Active [...] for Shortness of Breath. 18 g 11 024 Active Additional Information Patient not taking.Reported on 02/23/2024 Prochlorperazine Maleate 10 MG Oral Tablet (Compazine)Indica tions:Encounter for antineoplastic chemotherapy,Canc er, metastatic to bone (HCC),Metastatic adenocarcinoma to liver (HCC),Small cell lung cancer, right (HCC) Take 1 Tablet by mouth every 6 hours as needed for Nausea. 30 Tablet 5 024 Active Lidocaine-Priloca ine 2.5-2.5 % External Cream (Emla)Indications :Small cell lung cancer, right (HCC),Metastatic adenocarcinoma to liver (HCC),Cancer, metastatic to bone (HCC) APPLY TO SKIN OVER MEDIPORT & COVER 1HR PRIOR TO ACCESSING. 30 g 1 024 Active oxyCODONE-Acetami nophen 5-325 MG/5ML Oral Solution (Roxicet) Take by mouth every 4 hours as needed. Active dexAMETHasone 4 MG Oral Tablet (Decadron)Indicat ions:Encounter for antineoplastic chemotherapy,Canc er, metastatic to bone (HCC),Metastatic adenocarcinoma to liver (HCC),Small cell lung cancer, right (HCC) Take 2 Tablets by mouth in the morning. With food on days 2, 3, and 4 of chemo.. 12 Tablet 024 Active OLANZapine 10 MG Oral Tablet (zyPREXA)Indicati ons:Encounter for antineoplastic chemotherapy,Canc er, metastatic to bone (HCC),Metastatic adenocarcinoma to liver (HCC),Small cell lung cancer, right (HCC) Take 1 Tablet by mouth at bedtime. On days 1, 2, 3, and 4 of chemo. 8 Tablet 024 Active Azelastine HCl 137 MCG/SPRAY Nasal SolutionIndicatio [...] 07/18/2008 06/01/2019 Overview (07/31/2009): thyroglobulin antibody >3000 [id number] 08/19/200608/10 Overview (08/25/2009): Renamed Per Clinical Trials Billing Project. Pt is a participant in the [facility] (Consortium of Rheumatology Researchers of [facility]) national data collection study. For further information please call Dr Temo Castaneda or Kim Ríos, RN, CCRC at [phone] [facility] RESEARCH OTHER*[id number] 08/19/2006 11/06/2009 Overview (08/25/2009): Renamed Per Clinical Trials Billing Project. Pt is a participant in the [facility] (Consortium of Rheumatology Researchers of [place]) national data collection study. For further information please call Dr Temo Castaneda or Kim Ríos, RN, CCRC at [phone] Arthritis, rheumatoid 07/01/20062016 Abnormal blood chemistry 05/02/2006 [...] Sign Reading Time Taken Comments Blood Pressure 124/79 03/17/2024 12:35 PM EST Pulse 63 03/17/2024 12:35 PM EST Temperature 36.8 C (98.3 F) 03/17/2024 12:[address] Respiratory Rate 18 03/17/2024 12:35 PM EST Oxygen Saturation 95% 03/17/2024 12:35 PM EST Inhaled Oxygen Concentration - - Weight - - Height - - Body Mass Index - - documented in this encounter Nursing Notes * Adalgisa Fuentes RN - 03/17/2024 3:02 PM EST Treatment complete. Patient tolerated well. Patient with no complaints. VAD with + blood return, flushed with 10 ml NSS and Heparin 5 ml (100 units/ml). Rogel needle removed intact. Dry dressing applied. Goals: Patient will remain free from injury. Possible barriers to meeting goals: ambulating with IV pole Stability of the patient: Moderately stable - low risk of patient condition declining or worsening Summary regarding today's goals: Met: Patient remained free from harm/injury during treatment. Patient left facility in stable condition. * Adalgisa Fuentes RN - 03/17/2024 2:14 PM EST Chair 2. Patient here for treatment. Patient with no complaints. VAD accessed, + blood return, flushed with 10 ml NSS and dressing applied. Chemotherapy/Immunotherapy agents: ETOPOSIDE and ZOMETA Consent for chemotherapy drug treatment complete, dated, and signed? yes, date - 12/12/23 Treatment lab parameters met? Yes Has treatment weight changed > than 10%? No Treatment preauthorized? Yes VITALS Filed Vitals: 03/17/24 1235 BP: 124/79 Pulse: 63 Resp: 18 Temp: 36.8 C (98.3 F) TempSrc: Tympanic SpO2: 95% Urine protein: N/A Patient education completed for [...] Description 04/26/2024 7:45 AM EST Imaging Radiology [address] [place] [address] 04/29/2024 10:00 AM EST Laboratory Laboratory [facility] [place] [address] [place] [phone] Diana Mortensen [facility] [address] [place] [address] [address] 04/29/2024 10:30 AM EST Office Visit Hematology/Oncology [facility] [place] [address] [place] [address] [phone] Monica Ward MD [address] [place] [address] 04/29/2024 11:00 AM EST Hem/Onc Treatment Hematology/Oncology Treatment, [place] [address] [place] [address] [place], Chair 2 Hem Onc Scenery [address] [place], [place] [address] 04/29/2024 3:30 PM EST Imaging Radiology [facility] [address] [facility] [place] [address] 07/14/2024 3:00 PM EST Office Visit Pulmonary Medicine, [facility] [address] [facility] [place] [address] El[facility] Pond [facility] [address] [facility] [address] 10/15/2024 8:40 AM EDT Office Visit Rheumatology [address] [place] [phone] Samy Russo MD [facility] [place] [address] Health Maintenance Due Date Last Done Comments HIV Screening 1982 Hepatitis C Screening 1985 Hepatitis B Vaccine (1 of 3 - 19+ 3-dose series) 1986 Zoster Vaccines (1 of 2) 1986 HPV/Co-Test 1997 Colonoscopy 2012 Fecal Occult Blood Test 2012 Sigmoidoscopy 2012 Depression Screening 03/09/2020 03/09/2019 Cervical Cancer Screening 09/08/2020 Pap Smear 09/08/2020 09/08/2017, 0507/2012, 09/21/2012, Additional history exists Cologuard 06/01/2022 06/01/2019 Colorectal Cancer Screening 06/01/2022 COVID-19 Vaccine (6 - 2024-25 season) 2024 01/18/2022, 06/09/2021, 12/27/2020, Additional history [...] this encounter Medical Devices Implanted Type Area Objective C Developer Device Identifier Shelf Expiration Date Model / Serial / Lot Port Implant W8f Poly Cath - [id number] Implanted:Qty : 1 on 12/31/2023 by Sin Burroughs MD at OR [facility] Right: Chest CR BARD : PERIPHERAL VASCULAR [id number] 10/09/2024 [id number] / / [id number] documented as of this encounter Results * PHOSPHORUS (03/15/2024 7:58 AM EST) Phosphorus 2.6 2.5 - 4.8 mg/dL 03/17/2024 1:00 PM EST LAB[facility]ATORY [facility] Blood Venous blood specimen / Unknown Venipuncture / Unknown 03/15/2024 7:58 AM EST 03/15/2024 7:58 AM EST us Sukhjinder Faria MD LAB BLOOD ORDERABLES Final Res ult LAB[facility]ATORY [facility] [address] [place] [address] documented in this encounter Visit Diagnoses Diagnosis Malignant neoplasm of upper-outer quadrant of right breast in female, estrogen receptor positive (HCC)- Primary Cancer, metastatic to bone (HCC) Secondary malignant neoplasm of bone and bone marrow Small cell lung cancer, right (HCC) Encounter for antineoplastic chemotherapy Metastatic adenocarcinoma to liver (HCC) Secondary malignant neoplasm of liver documented in this encounter Administered Medications Inactive Administered Medications - up to 3 most recent administrations Medication Order MAR Action Action Date Dose Rate Site etoposide (VEPESID) 190 mg in NSS 500 mL infusion 190 mg (rounded from 193 mg = 100 mg/m2 1.93 m2 Treatment Plan BSA from Recorded weight), IV Piggyback, ONCE, 1 dose, On Fri03/17/24 at 1430, Administer over 60 Minutes, Recommended concentration is less than or equal to 0.4 mg/mL. If concentration is greater than 0.4 mg/mL recommend to administer through 0.22 micron low protein binding filter.Indications:Cancer, metastatic to bone (HCC),Small cell lung cancer, right (HCC),Encounter for antineoplastic chemotherapy,Metastatic adenocarcinoma to liver (HCC) Start Infusion 03/17/2024 1:30 PM EST 190 mg 519.5 mL/hr hEParin 100 UNIT/ML Lock Flush inj 500 Units 500 Units (5 mL), IV Lock, PRN Other, IV Flush, Starting on Fri03/17/24 at 1252, Until Fri03/17/24 at 195, For 24 hours, Do not flush if lock, PICC, or central line not in place; IV infusing or unable to flush.Indications:Cancer, metastatic to bone (HCC),Small cell lung cancer, right (HCC),Encounter for antineoplastic chemotherapy,Metastatic adenocarcinoma to liver (HCC) Given 03/17/2024 2:36 PM EST 500 Units NSS infusion Intravenous, at 50 mL/hr, PRN, Starting on Fri03/17/24 at 1400, Until Fri03/17/24 at 1951, Maintenance lineIndications:Cancer, metastatic to bone (HCC),Small cell lung cancer, right (HCC),Encounter for antineoplastic chemotherapy,Metastatic adenocarcinoma to liver (HCC) Start Infusion 03/17/2024 12:58 PM EST 50 mL/hr ondansetron (Zofran) tab 8 mg 8 mg, Oral, ONCE, On Fri03/17/24 at 1315, For 1 dose, Give 30 minutes prior to chemotherapy.Indications:C ancer, metastatic to bone (HCC),Small cell lung cancer, right (HCC),Encounter for antineoplastic chemotherapy,Metastatic adenocarcinoma to liver (HCC) Given 03/17/2024 1:02 PM EST 8 mg sodium chloride 0.9 % flush central line 10 mL 10 mL, IV Push, PRN Other, IV Flush, Starting on Fri03/17/24 at 1252, Until Fri03/17/24 at 1951, For 24 hours, Do not flush if lock, PICC, or central line not in place; IV infusing or unable to flush.Indications:Cancer, metastatic to bone (HCC),Small cell lung cancer, right (HCC),Encounter for antineoplastic chemotherapy,Metastatic adenocarcinoma to liver (HCC) Given 03/17/2024 2:35 PM EST 10 mL Zoledronic Acid (Zometa) 4 mg in 100 mL PREMIX ivpb 4 mg, IV Piggyback, ONCE, 1 dose, On Fri03/17/24 at 1415Indications:Cancer, metastatic to bone (HCC),Small cell lung cancer, right (HCC),Metastatic adenocarcinoma to liver (HCC) Start Infusion 03/17/2024 1:07 PM EST 4 mg 400 mL/hr documented in this encounter Care Teams Feather Stitcher Relationship Specialty Start Date End Date Edel Clay MD [address] [place] [address] [place] [address] PCP - General Family Medicine 03/03/17 documented as of this encounter
--- OUTSIDE RECORDS SUMMARY | 2024-06-12 02:20 | External Medical Summary ---
Author Name Unknown Address Unknown Organization [id number]:[facility] [facility] [address] [facility] [address] Laboratory Report Ordering Provider Test Date Status HEATHERSAGARMADIEMARTIN 04/29/2024 10:00:55 Final Observation Date Value Abnormality Reference (Units ) Status TSH 04/29/2024 10:00:55 15.50 Above high normal 0. 27-4.20 (uIU/mL) Final Performing Location [facility] [facility] [address] [facility] [address]
--- OUTSIDE RECORDS SUMMARY | 2024-06-12 02:20 | External Medical Summary ---
Author Name Unknown Address Unknown Organization [id number]:[facility] [place] [address] Laboratory Report Ordering Provider Test Date Status AKILAH ROMERO 04/29/2024 10:00:55 Final Observation Date Value Abnormality Reference (Units ) Status WBC, Total 04/29/2024 10:00:55 6.13 4.00-10.8 0 (K/uL) Final RBC 04/29/2024 10:00:55 3.12 3.85-5.15 (M/uL) Final Hemoglobin 04/29/2024 10:00:55 10.6 Below low normal 12 .0-15.3 (g/dL) Final HCT 04/29/2024 10:00:55 33.4 Below low normal 36. 0-45.2 (%) Final MCV 04/29/2024 10:00:55 107.1 81.5-97.5 (fL) Final MCH 04/29/2024 10:00:55 34.0 27.0-34.0 (pg) Final MCHC 04/29/2024 10:00:55 31.7 32.0-36.0 (g/dL) Final RDW 04/29/2024 10:00:55 15.1 11.5-15.5 (%) Final Platelets 04/29/2024 10:00:55 432 Above high normal 14 0-400 (K/uL) Final MPV 04/29/2024 10:00:55 8.5 6.6-11.1 ( fL) Final Performing Location [facility] [place] [address]
--- OUTSIDE RECORDS SUMMARY | 2024-06-12 02:20 | External Medical Summary | Summary of Care ---
Author Name Unknown Organization [facility] Address [address] [place] [address] Phone [phone] Care Team Providers Care Mine Equipment Design Engineer Name Role Phone Edel Clay MD Primary [...] Small cell lung cancer, right (HCC) Procedures OR CARBOPLATIN INJECTION OR FOSAPREPITANT INJECTION OR ETOPOSIDE 10 MG INJ OR INJ, ATEZOLIZUMAB,10 MG OR INJECTION, Monica Anderson MD [address] [place] [address] [place] [address] Phone: tel: fax: Hematology/Oncology Treatment, [address] [address] Phone: tel: fax: Referral ID Status Reason Start Date Expiration Date V isits Requested Visits Authorized [id number] Authorized 12/17/2023 06/13/[id number] Encounter Details Date Type Department Care Team (Latest Contact Info) Description 03/15/2024 9:00 AM EST Hem/Onc Treatment Hematology/Oncolog y Treatment, [address] [place] [address] [place], Chair 5 Hem Onc [address] [address] Encounter for antineoplastic chemotherapy*; Cancer, [...] 07/18/2008 06/01/2019 Overview (07/31/2009): thyroglobulin antibody >3000 [id number] 08/19/200608/10 Overview (08/25/2009): Renamed Per Clinical Trials Billing Project. Pt is a participant in the [facility] (Consortium of Rheumatology Researchers of [place]) national data collection study. For further information please call Dr Temo Castaneda or Kim Ríos, RN, CCRC at [phone] [facility] RESEARCH OTHER*[id number] 08/19/2006 11/06/2009 Overview (08/25/2009): Renamed Per Clinical Trials Billing Project. Pt is a participant in the [facility] (Consortium of Rheumatology Researchers of [place]) national data collection study. For further information please call Dr Temo Castaneda or Kim Ríos, RN, CCRC at [phone] Arthritis, rheumatoid 07/01/20062016 Abnormal blood chemistry 05/02/2006 [...] Description 04/26/2024 7:45 AM EST Imaging Radiology [address] [address] 04/29/2024 10:00 AM EST Laboratory Laboratory [facility] [address] [place] [address] [place], Lab Scenery [address] [facility] [place] [address] 04/29/2024 10:30 AM EST Office Visit Hematology/Oncology [facility] [address] [facility] [place] [phone] Monica Ward MD [address] [place] [address] [place] [address] 04/29/2024 11:00 AM EST Hem/Onc Treatment Hematology/Oncology Treatment, [place] [address] [place] [phone] [place], Chair 2 Hem Onc Scen[address] [place] [address] 04/29/2024 3:30 PM EST Imaging Radiology [address] [place] [address] 07/14/2024 3:00 PM EST [facility] [address] [place] [address] Eloy Pond MD [address] [place] [address] 10/15/2024 8:40 AM EDT Office Visit Rheumatology [address] [place] [phone] Samy Russo MD [address] [facility] [place] [address] Health Maintenance Due Date Last Done Comments [...] this encounter Medical Devices Implanted Type Area Strip Presser Device Identifier Shelf Expiration Date Model / Serial / Lot Port Implant W8f Poly Cath - [id number] Implanted:Qty : 1 on 12/31/2023 by Sin Burroughs MD at OR [facility] Right: Chest CR BARD : PERIPHERAL VASCULAR [id number] 10/09/2024 [id number] / / [id number] documented as of this encounter Visit Diagnoses [...] mL documented in this encounter Care Teams Mine Equipment Design Engineer Relationship Specialty Start Date End Date Edel Clay MD [address] [place] [address] [place] [address] PCP - General Family Medicine 03/03/17 documented as of this encounter
--- OUTSIDE RECORDS SUMMARY | 2024-06-12 02:20 | External Medical Summary ---
Author Name Unknown Address Unknown Organization K09:[facility] [address] [place] [address] Laboratory Report Ordering Provider Test Date Status AKILAH ROMERO 04/29/2024 10:00:55 Final Observation Date Value Abnormality Reference (Units ) Status BUN 04/29/2024 10:00:55 7 6-20 (mg/dL) Final Creatinine 04/29/2024 10:00:55 0.8 0.5-1.0 (mg/dL) Final Glomerular filtration rate/1.73 sq M.predicted [Volume Rate/Area] in Serum, Plasma or Blood by Creatinine-based formula (CKD-EPI) 04/29/2024 10:00:55 89 >=60 (mL/min) Final eGFR is calculated based on the CKD-EPI 2020 equation. Sodium 04/29/2024 10:00:55 143 135-146 (m mol/L) Final Potassium 04/29/2024 10:00:55 3.7 3.5-5.1 (m mol/L) Final Cl 04/29/2024 10:00:55 106 98-107 (mm ol/L) Final CO2 04/29/2024 10:00:55 24 22-32 (mmo l/L) Final Anion gap 04/29/2024 10:00:55 13 7-15 (mmol /L) Final Glucose 04/29/2024 10:00:55 190 Above high normal 70 -120 (mg/dL) Final Albumin 04/29/2024 10:00:55 4.0 3.8-5.0 (g /dL) Final AST (Aspartate aminotransferase) 04/29/2024 10:00:55 21 10-35 (U/L) Fin al Alk Phos 04/29/2024 10:00:55 101 35-130 (U/ L) Final Bilirubin, Total 04/29/2024 10:00:55 0.2 <=1 .2 (mg/dL) Final Calcium 04/29/2024 10:00:55 9.7 8.4-10.2 ( mg/dL) Final Protein 04/29/2024 10:00:55 7.3 6.0-8.3 (g /dL) Final ALT (Alanine aminotransferase) 04/29/2024 10:00:55 17 10-35 (U/L) Neo mann Performing Location [facility] [address] [place] [address]
--- OUTSIDE RECORDS SUMMARY | 2024-06-12 02:20 | External Medical Summary ---
Author Name Unknown Address Unknown Organization K09:[facility] [place] [place] [address] Laboratory Report Ordering Provider Test Date Status AKILAH ROMERO 04/29/2024 10:00:55 Final Observation Date Value Abnormality Reference (Units ) Status Phosphate 04/29/2024 10:00:55 2.6 2.5-4.8 (m g/dL) Final Performing Location [facility] [address]
--- OUTSIDE RECORDS SUMMARY | 2024-06-12 02:20 | External Medical Summary | Summary of Care ---
Author Name Unknown Organization [facility] Address [address] [place] [address] Phone [phone] Care Team Providers Care Customer Service Assistant Name Role Phone Edel Clay MD Primary Care Provide r Encounter Details Date Type Department Care Team (Late st Contact Info) Description 04/22/2024 9:20 AM EST Telemedicine Family Medicine [address] [place] [phone] Amy Han PA-C [address] [place] [address] [place] [address] Acute maxillary sinusitis, recurrence not specified* Allergies Active Allergy Reactions Criticality Noted Date Comments Clindamycin Hives 08/26/2014 Codeine 10/25/2011 "Stupor", drowsy Other Allergy (See Comments) 024 Perfumes, hairspray, candles, etc. Sinus infections, headaches, very sensitive. Penicillins 01/30/2006 Hives ans swelling Sulfa Antibiotics 06/29/2010 Sick to her stomach documented as of this encounter (statuses as of 04/22/2024) Medications OMEGA-3 FATTY ACIDS 1000 MG PO [...] as of this encounter (statuses as of 04/22/2024) Active Problems Problem Noted Date Diagnosed Date [...] as of this encounter (statuses as of 04/22/2024) Resolved Problems Problem Noted Date Diagnosed Date [...] 07/18/2008 06/01/2019 Overview (07/31/2009): thyroglobulin antibody >3000 GAMAL 08/19/200608/10 Overview (08/25/2009): Renamed Per Clinical Trials Billing Project. Pt is a participant in the [employer] (Consortium of Rheumatology Researchers of [place]) national data collection study. For further information please call Dr Temo Castaneda or Kim Ríos, RN, CCRC at [phone] [facility] RESEARCH OTHER*[id number] 08/19/2006 11/06/2009 Overview (08/25/2009): Renamed Per Clinical Trials Billing Project. Pt is a participant in the [employer] (Consortium of Rheumatology Researchers of [place]) national data collection study. For further information please call Dr Temo Castaneda or Kim Ríos, RN, CCRC at [phone] Arthritis, rheumatoid 07/01/20062016 Abnormal blood chemistry 05/02/2006 [...] as of this encounter (statuses as of 04/22/2024) Immunizations Name Administration Dates Next Due COVID-19 [...] on file documented as of this encounter Progress Notes * Amy Han PA-C - 04/22/2024 9:27 AM EST Patient location: HOME. I was in a hospital or clinic location. After connecting through [employer],patient was verified with two unique identifiers. 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 Methods to assure confidentiality were taken. Patient acknowledged consent and understanding of pr ivacy and security of the Telemedicine visit. The patient agreed to participate. Pt with ear pain/fullness, pain into neck, sinus pain/pressure, nasal/head congestion, nasal drainage for the past week. Pt denies fever, chills, nausea, vomiting, diarrhea, chest pain, SOB, cough. Review of patient's allergies indicates: Allergen Reactions Clindamycin Hives Codeine "Stupor", drowsy Other Allergy (See Comments) Perfumes, hairspray, candles, etc. Sinus infections, headaches, very sensitive. Pcn [Penicillins] Hives ans swelling Sulfa Antibiotics Sick to her stomach Current Outpatient Medications Medication Sig Dispense Refill Azithromycin 250 MG Oral Tablet (Zithromax Z-Dale) Take two tablets by mouth on first day, then 1 tablet daily until gone 6 Tablet 0 OMEGA-3 FATTY ACIDS 1000 MG [...] other meds) 90 Tablet 3 Magic Swizzle (Ootirmrfn-Uqguyawu-Cbgmrt) oral solution Swish and spit 15 mL [...] needed for RA flare 60 Tablet 2 Current Facility-Administered Medications Medication Dose Route Frequency Provider Last Rate Last Admin Albuterol Sulfate (Proventil) (2.5 MG/3ML) 0.083% inhalation solution 2.5 mg 2.5 mg Nebulizer PRN 2.5 mg at 01/15/24 1445 Albuterol Sulfate (Proventil) (5 MG/ML) 0.5% *conc* inhalation solution 2.5 mg 2.5 mg Nebulizer PRN Past Medical History: Diagnosis Date Abnormal blood [...] Recurrent acute sinusitis 09/24/2016 Tobacco use disorder Social History Socioeconomic History Marital status: Spouse name: Margarito Number of children: 1 Years of education: Not on file Highest education level: Not on file Occupational History Employer: [employer] Tobacco Use Smoking status: Every Day Current packs/day: 0.50 Average packs/day: 1 pack/day for 28.4 years (28.3 ttl pk-yrs) Types: Cigarettes Start date: 12/04/1995 Smokeless tobacco: Never Vaping Use Vaping status: [...] on file Housing Stability: Not on file O:Last menstrual period 09/07/2015, not currently . Telemed visit A:Acute maxillary sinusitis, recurrence not specified (Primary) - Azithromycin 250 MG Oral Tablet (Zithromax Z-Dale); Take two tablets by mouth on first day, then 1tablet daily until gone Start zpack. Rest, fluids. Any questions/problems, please call. If anything changes, worsens, develops new sx, please call YANDEL. Follow Up: Return if symptoms worsen or fail to improve. Amy Han PA-C documented in this encounter Plan of Treatment Upcoming Encounters Date Type Department Care Team (Late st Contact Info) Description 04/26/2024 7:45 AM EST Imaging Radiology [facility] 1st [facility], [place] [address] [facility] [place] [address] 04/29/2024 10:00 AM EST Laboratory Laboratory [facility] [place] [address] [place] [phone] [place], Lab Scenery [address] [place] [address] 04/29/2024 10:30 AM EST Office Visit Hematology/Oncology Scenery [facility] [address] [place] [phone] Monica Ward MD [address] [place] [phone] 04/29/2024 11:00 AM EST Hem/Onc Treatment Hematology/Oncology Treatment, [place] [address] [place] [phone] [place], Chair 2 Hem Onc [facility] [place] [address] 04/29/2024 3:30 PM EST Imaging Radiology [facility] 1st [facility] 132 [facility] [place] [address] 07/14/2024 3:00 PM EST Office Visit Pulmonary Medicine, [facility] [address] [facility] [place] [address] Eloy Pond [facility] [address] [facility] [address] 10/15/2024 8:40 AM EDT Office Visit Rheumatology [address] [place] [phone] Samy Russo MD [facility] [place] [address] Health Maintenance Due Date Last Done Comments [...] this encounter Medical Devices Implanted Type Area [facility] Owner Device Identifier Shelf Expiration Date Model / Serial / Lot Port Implant W8f Poly Cath - [id number] Implanted:Qty : 1 on 12/31/2023 by Sin Burroughs MD at [facility] Right: Chest CR BARD : PERIPHERAL VASCULAR [id number] 10/09/2024 [id number] / / [id number] documented as of this encounter Visit Diagnoses Diagnosis Acute maxillary sinusitis, recurrence not specified- Primary documented in this encounter Care Teams Customer Service Assistant Relationship Specialty Start Date End Date Edel Clay MD [address] [place] [address] [place] [address] PCP - General Family Medicine 03/03/17 documented as of this encounter
--- OUTSIDE RECORDS SUMMARY | 2024-06-12 02:20 | External Medical Summary | Summary of Care ---
Author Name Unknown Organization [facility] Address [address] [place] [address] Phone [phone] Care Team Providers Care Communication Equipment Mechanic Name Role Phone Edel Clay MD Primary [...] ATEZOLIZUMAB,10 MG OR INJECTION, Monica Anderson MD [address] [facility] [place] [address] Phone: tel: fax: Hematology/Oncology Treatment, [address] [place] [address] Phone: tel: fax: Referral ID Status Reason Start Date Expiration Date V isits Requested Visits Authorized [id number] Authorized 12/17/2023 06/13/[phone] Encounter Details Date Type Department Care Team (Latest Contact Info) Description 03/16/2024 8:45 AM EST Hem/Onc Treatment Hematology/Oncolog [address], [address] [phone] [place], Chair 2 Hem Onc [address] [id number] Encounter for antineoplastic chemotherapy*; Cancer, metastatic to [...] 07/18/2008 06/01/2019 Overview (07/31/2009): thyroglobulin antibody >3000 [id number] 08/19/200608/10 Overview (08/25/2009): Renamed Per Clinical Trials Billing Project. Pt is a participant in the [employer] (Consortium of Rheumatology Researchers of [place]) national data collection study. For further information please call Dr Temo Castaneda or Kim Ríos, RN, CCRC at [phone] [facility] RESEARCH OTHER*[id number] 08/19/2006 11/06/2009 Overview (08/25/2009): Renamed Per Clinical Trials Billing Project. Pt is a participant in the [facility] (Consortium of Rheumatology Researchers of [facility]) national data collection study. For further information please call Dr Temo Castaneda or Kim Ríos, RN, CCRC at [phone] Arthritis, rheumatoid 07/01/20062016 Abnormal blood chemistry 05/02/2006 [...] Description 04/26/2024 7:45 AM EST Imaging Radiology [address] [place] [address] 04/29/2024 10:00 AM EST Laboratory Laboratory [facility] 200 [facility] [place] [phone] [address] [facility] [place] [address] 04/29/2024 10:30 AM EST Office Visit Hematology/Oncology [facility] [address] [place] [phone] Monica Ward MD [address] [place] [address] [place] [phone] 04/29/2024 11:00 AM EST Hem/Onc Treatment Hematology/Oncology Treatment, [place] [address] [place] [phone] Park, Chair 2 Hem Onc Scenery [address] [place] [address] 04/29/2024 3:30 PM EST Imaging [facility] [address] [facility] [place] [address] 07/14/2024 3:00 PM EST Office Visit Pulmonary Medicine, [facility] [address] [facility] [place] [address] Eloy Pond MD [address] [facility] [address] 10/15/2024 8:40 AM EDT Office Visit Rheumatology [address] [place] [phone] Samy Russo MD [address] [place] [address] Health Maintenance Due Date Last Done Comments [...] this encounter Medical Devices Implanted Type Area Harnessmaker Device Identifier Shelf Expiration Date Model / Serial / Lot Port Implant W8f Poly Cath - [id number] Implanted:Qty : 1 on 12/31/2023 by Sin Burroughs MD at [facility] Right: Chest CR BARD : PERIPHERAL VASCULAR [id number] 10/09/2024 [id number] / / [id number] documented as of this encounter Visit Diagnoses [...] mL documented in this encounter Care Teams Communication Equipment Mechanic Relationship Specialty Start Date End Date Edel Clay MD [address] [place] [address] [place] [address] PCP - General Family Medicine 03/03/17 documented as of this encounter
--- OUTSIDE RECORDS SUMMARY | 2024-06-12 02:20 | External Medical Summary | Summary of Care ---
Author Name Unknown Organization [facility] Address [address] [place] [address] Phone [phone] Care Team Providers Care Wet Washer Machine Name Role Phone Edel Clay MD Primary Care Provide r Reason for Referral * Precert (Within 24 hrs (call dept; emergent)) - Authorized Specialty Diagnoses / Procedures Referred By Contac t Referred To Contact Radiology Diagnoses Small cell lung cancer, right (HCC) Procedures MRI BRAIN W WO CONTRAST [facility] Ward [facility] [address] [facility] [address] Phone: tel: fax: Referral ID Status Reason Start Date Expiration Date V isits Requested Visits Authorized [id number] Authorized 04/14/2024 10/11/2024 999 999 * Precert (Within 24 hrs (call dept; emergent)) - Authorized Specialty Diagnoses / Procedures Referred By Contac t Referred To Contact Radiology Diagnoses Small cell lung cancer, right (HCC) Procedures PET CT SKULL BASE TO MID-THIGH FDG [facility] Ward [facility] [address] [facility] [address] Phone: tel: fax: Referral ID Status Reason Start Date Expiration Date V isits Requested Visits Authorized [id number] Authorized Precert 04/15/2024 10/12/2024 999 999 Reason for Visit * Reason Comments Chemotherapy Chemo/recheck Follow Up Encounter Details Date Type Department Care Team (Late st Contact Info) Description 04/05/2024 8:30 AM EST Office Visit Hematology/Oncology [facility] [place] [address] [place] [address] Monica Ward MD [address] [place] [address] David [place] [phone] Small cell lung cancer, right (HCC)*; Anxiety; Claustrophobia; Encounter for antineoplastic chemotherapy; Cancer, metastatic to bone (HCC); Metastatic adenocarcinoma to liver (HCC) Allergies Active Allergy Reactions Criticality Noted Date Comments Clindamycin Hives 08/26/2014 Codeine 10/25/2011 "Stupor", drowsy Other Allergy (See Comments) 024 Perfumes, hairspray, candles, etc. Sinus infections, headaches, very sensitive. Penicillins 01/30/2006 Hives ans swelling Sulfa Antibiotics 06/29/2010 Sick to her stomach documented as of this encounter (statuses as of 04/28/2024) Medications OMEGA-3 FATTY ACIDS 1000 MG PO [...] and 4 of chemo. 8 Tablet Active LORazepam 0.5 MG Oral Tablet (Ativan)Indicatio ns:Small cell lung cancer, right (HCC),Anxiety,Cla ustrophobia Take 1 Tablet by mouth every 8 hours as needed for Anxiety. 60 Tablet Active Azelastine HCl 137 MCG/SPRAY Nasal [...] as of this encounter (statuses as of 04/28/2024) Active Problems Problem Noted Date Diagnosed Date [...] as of this encounter (statuses as of 04/28/2024) Resolved Problems Problem Noted Date Diagnosed Date [...] 07/18/2008 06/01/2019 Overview (07/31/2009): thyroglobulin antibody >3000 [id number] 08/19/200608/10 Overview (08/25/2009): Renamed Per Clinical Trials Billing Project. Pt is a participant in the [facility] (Consortium of Rheumatology Researchers of [place]) national data collection study. For further information please call Dr Temo Castaneda or Kim Ríos, RN, CCRC at [phone] [facility] RESEARCH OTHER*[id number] 08/19/2006 11/06/2009 Overview (08/25/2009): Renamed Per Clinical Trials Billing Project. Pt is a participant in the [employer] (Consortium of Rheumatology Researchers of [place]) national data collection study. For further information please call Dr Temo Castaneda or Kim Ríos, RN, CCRC at [phone] Arthritis, rheumatoid 07/01/20062016 Abnormal blood chemistry 05/02/2006 [...] as of this encounter (statuses as of 04/28/2024) Immunizations Name Administration Dates Next Due COVID-19 [...] Sign Reading Time Taken Comments Blood Pressure 129/83 04/05/2024 8:28 AM EST Pulse 94 04/05/2024 8:28 AM EST Temperature 36.8 C (98.2 F) 04/05/2024 8:28 AM ES T Respiratory Rate - - Oxygen Saturation 95% 04/05/2024 8:28 AM EST Inhaled Oxygen Concentration - - Weight 87.1 kg (192 lb) 04/05/2024 8:28 AM EST Height - - Body Mass Index 33.81 01/15/2024 3:20 PM EDT documented in this encounter Patient Instructions * Patient Instructions* Monica Ward MD - 04/05/2024 9:10 AM EST Continue the current chemotherapy -cycle 6 due today on 04/05/2024 PET scan for treatment response monitoring to be done around 04/20/2024 MRI brain to be performed around 04/20/2024 to assess for any brain metastases Return to clinic in 3 weeks for follow up and for further treatment I explained to the patient that if the PET scan shows no evidence of disease then we could continuemaintenance immunotherapy. However if she has any evidence of residual disease then she should receive 2 additional cycles of chemotherapy. Also there was no evidence of disease on the PET scan and she was found to be in remission then she should be considered for prophylactic radiation to the brain for which she will be referred to Radiation Oncology. Patient reports anxiety and wants prescription for Ativan. Ativan 0.5 mg p.o. three times daily p.r.n. prescribed. Also instructed the patient to take 2 tablets (total dose 1 mg) Ativan prior to the MRI. 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 Since her TSH is well is fluctuating and the most recent TSH being 12.5, there is no indication to increase her thyroxine dose at this time. documented in this encounter Progress Notes * Monica Ward MD - 04/05/2024 8:30 AM EST Date of visit: 04/05/2024 Reason for visit: Chemo Follow up Diagnosis: 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 Current treatment: Carboplatin + Etoposide + atezolizumab Q 3 weeks and Zometa Q 6 weeks Subjective Alfredo Torrez is a 58 year old female presents for follow upon 04/05/2024 and to receive C6 carbo + etoposide + atezolizumab. She was last seen on 03/15/2024 for C5 and received Zometa on 03/17/2024. The pt reports doing well and does not have any significant complaints or concerns today. She did experience bone pain after receiving [...] having any associated symptoms with this pain. She reports tolerating chemotherapy well without any other complaints or concerns. 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 Multiple liver lesions, concerning for metastases, workforce services representative lesion in the posterior right hepatic [...] TSH - [facility] 2.57 05/08/2018 09:22 AM PMH: Patient Active Problem List Diagnosis Acquired [...] Current Outpatient Medications Medication Sig Dispense Refill LORazepam 0.5 MG Oral Tablet (Ativan) Take 1 Tablet by mouth every 8 hours as needed for Anxiety. 60 Tablet 0 OMEGA-3 FATTY ACIDS 1000 MG [...] other meds) 90 Tablet 3 Magic Swizzle (Dzszynlxz-Pjhqdnas-Xkrqji) oral solution Swish and spit 15 mL [...] MORNING AND BEFORE BEDTIME 90 mL 3 Current Facility-Administered Medications Medication Dose Route Frequency Provider Last Rate Last Admin Albuterol Sulfate (Proventil) (2.5 MG/3ML) 0.083% inhalation solution 2.5 mg 2.5 mg Nebulizer PRN 2.5 mg at 01/15/24 1445 Albuterol Sulfate (Proventil) (5 MG/ML) 0.5% *conc* inhalation solution 2.5 mg 2.5 mg Nebulizer PRN Review of patient's allergies indicates: Allergen Reactions [...] Negative. Hematological: Negative. Psychiatric/Behavioral: Negative. Objective BP 129/83 (BP Site: Left Arm, BP Position: Sitting, BP Cuff Size: Regular) | Pulse 94 | Temp 36.8 C (98.2 F) (Tympanic) | Wt 87.1 kg (192 lb) | LMP 09/07/2015 (Approximate) | SpO2 95% | BMI 33.81kg/m | BSA 1.97 m Physical Exam Constitutional: Appearance: Normal appearance. [...] Judgment normal. 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 She received cycle 4 of the above chemotherapy on 02/23/2024, tolerated treatment very well She received cycle 5 of the above chemotherapy on 03/15/2024 She is due to receive cycle 6 of the above chemotherapy today on 04/05/2024 Receiving Zometa to treat metastatic osseous lesions. Small cell lung cancer, right (HCC) (Primary) - PET CT SKULL BASE TO MID-THIGH FDG; Future; Expected date: 04/28/2024 - MRI BRAIN W WO CONTRAST; Future; Expected date: 04/19/2024 - LORazepam 0.5 MG Oral Tablet (Ativan); Take 1 Tablet by mouth every 8 hours as needed for Anxiety. - ATEZOLIZUMAB TREATMENT ALERT; Standing - COMMUNICATION TO PROVIDER; Standing - ETOPOSIDE TREATMENT ALERT; Standing - CARBOPLATIN TREATMENT ALERT; Standing - NURSING COMMUNICATION; Standing - TREATMENT ALERT; Standing - ATEZOLIZUMAB TREATMENT ALERT - COMMUNICATION TO PROVIDER - ETOPOSIDE TREATMENT ALERT - CARBOPLATIN TREATMENT ALERT - NURSING COMMUNICATION - TREATMENT ALERT Anxiety - LORazepam 0.5 MG Oral Tablet (Ativan); Take 1 Tablet by mouth every 8 hours as needed for Anxiety. Claustrophobia - LORazepam 0.5 MG Oral Tablet (Ativan); Take 1 Tablet by mouth every 8 hours as needed for Anxiety. Encounter for antineoplastic chemotherapy - ATEZOLIZUMAB TREATMENT ALERT; Standing - COMMUNICATION TO PROVIDER; Standing - ETOPOSIDE TREATMENT ALERT; Standing - CARBOPLATIN TREATMENT ALERT; Standing - NURSING COMMUNICATION; Standing - TREATMENT ALERT; Standing - ATEZOLIZUMAB TREATMENT ALERT - COMMUNICATION TO PROVIDER - ETOPOSIDE TREATMENT ALERT - CARBOPLATIN TREATMENT ALERT - NURSING COMMUNICATION - TREATMENT ALERT Cancer, metastatic to bone (HCC) - ATEZOLIZUMAB TREATMENT ALERT; Standing - COMMUNICATION TO PROVIDER; Standing - ETOPOSIDE TREATMENT ALERT; Standing - CARBOPLATIN TREATMENT ALERT; Standing - NURSING COMMUNICATION; Standing - TREATMENT ALERT; Standing - ATEZOLIZUMAB TREATMENT ALERT - COMMUNICATION TO PROVIDER - ETOPOSIDE TREATMENT ALERT - CARBOPLATIN TREATMENT ALERT - NURSING COMMUNICATION - TREATMENT ALERT Metastatic adenocarcinoma to liver (HCC) - ATEZOLIZUMAB TREATMENT ALERT; Standing - COMMUNICATION TO PROVIDER; Standing - ETOPOSIDE TREATMENT ALERT; Standing - CARBOPLATIN TREATMENT ALERT; Standing - NURSING COMMUNICATION; Standing - TREATMENT ALERT; Standing - ATEZOLIZUMAB TREATMENT ALERT - COMMUNICATION TO PROVIDER - ETOPOSIDE TREATMENT ALERT - CARBOPLATIN TREATMENT ALERT - NURSING COMMUNICATION - TREATMENT ALERT PLAN OF CARE DISCUSSED WITH PATIENT ON 04/05/2024: Continue the current chemotherapy -cycle 6 due today on 04/05/2024 The PET scan after 3 cycles of chemotherapy showed excellent response Continue Zometa Q 6 weeks Last dose of Zometa was given on 03/17/2024, next treatment due around 04/28/2024. Continue taking Citracal 1 tablet p.o. twice daily. Follow-up: Return in about 4 weeks (around 05/03/2024). PET scan for treatment response monitoring to be done around 04/28/2024- since PET scan can not be performed prior to 3 weeks after the last chemo dose MRI brain to be performed around 04/20/2024 to assess for any brain metastases Ativan 0.5 mg p.o. three times daily p.r.n. for anxiety. Instructed the patient to take 2 tablets (total dose 1 mg) Ativan prior to the MRI brain on 04/20/2024 to help with symptoms of claustrophobia Follow-up: Return in about 4 weeks (around 05/03/2024) for follow up, to discuss the test results of MRI and PET scan and to discuss further treatment. Monica Ward MD documented in this encounter Nursing Notes * Cathy Kang, OVEN HEATER HELPER - 04/05/2024 8:29 AM EST Patient identifed by name and birthdate Do you have any concerns about pain management for today's visit? No Living Will or Advance Directive for Health Care as noted on the problem list. [facility] is a way you can talk to your provider on line through e-mail. Would you like to sign up? I can activate it for you? ALREADY ACTIVE Filed Vitals: 04/05/24 0828 BP: 129/83 Pulse: 94 Temp: 36.8 C (98.2 F) TempSrc: Tympanic SpO2: 95% Weight: 87.1 kg (192 lb) Patient was instructed to not get up [...] Description 04/29/2024 10:00 AM EST Laboratory Laboratory [facility] [place] [address] [place] [phone] [place], Lab Scenery [address] [facility] [place] [address] 04/29/2024 10:30 AM EST Office Visit Hematology/Oncology [facility] [address] [place] [phone] Monica Ward MD [address] [place] [address] [place] [phone] 04/29/2024 11:00 AM EST Hem/Onc Treatment Hematology/Oncology Treatment, [place] [address] [place] [phone] [place], Chair 2 Hem Onc [facility] [address] [place] [address] 04/29/2024 3:30 PM EST Imaging Radiology [facility] [facility] [address] [facility] [place] [address] 07/14/2024 3:00 PM EST Office Visit Pulmonary Medicine, [facility] [address] [facility] [place] [address] Eloy Pond MD [address] [place] [address] 10/15/2024 8:40 AM EDT Office Visit Rheumatology [address] [place] [phone] Samy Russo MD [address] [facility] [place] [address] Scheduled Orders Name Type Priority Associated Diagnoses Orde r Schedule MRI BRAIN W WO CONTRAST Medical Imaging STAT Small cell lung cancer, right (HCC) Expected: 04/19/2024, Expires: 05/05/2025 Health Maintenance Due Date Last Done Comments [...] 08/29/2020, Additional history exists TSH 04/05/2025 04/05/2024, 11/08/2023, 02/23/2024, Additional history exists Lipid Panel 05/19/2025 [...] this encounter Medical Devices Implanted Type Area Railroad Dining Car Steward/Stewardess Device Identifier Shelf Expiration Date Model / Serial / Lot Port Implant W8f Poly Cath - [id number] Implanted:Qty : 1 on 12/31/2023 by Sin Burroughs MD at OR [facility] Right: Chest CR BARD : PERIPHERAL VASCULAR [id number] 10/09/2024 [id number] / / [id number] documented as of this encounter Results * PET CT SKULL BASE TO MID-THIGH FDG (04/26/2024 10:23 AM EST) Anatomical Region Laterality Modality Body, Chest, Abdomen, Pelvis Pos itron Emission Tomography (PET) 04/26/2024 11:1 4 AM EST Impressions 04/26/2024 11:28 AM EST IMPRESSION 1. Similar size of a right hilar mass with slightly increased metabolic activity. 2. Multiple new small foci of increased metabolic activity throughout the liver, concerning for new metastatic lesions. 3. Stable osseous metastatic disease. I have personally reviewed this examination and agree with the resident/fellow physician's interpretation. Narrative 04/26/2024 11:28 AM EST EXAM PET CT SKULL BASE TO MID-THIGH FDG - 04/26/2024 10:23 am HISTORY treatment response monitoring COMPARISON PET CT SKULL BASE TO MID-THIGH FDG, ACC: [id number], dated 2023-12-08 09:40:52; CT CHEST WO CONTRAST, ACC: [id number], dated 2023-11-20 17:08:57 TECHNIQUE PET imaging was [...] not well seen on the noncontrast CT. Physiologic [...] Mild atherosclerosis. Cholecystectomy. Musculoskeletal/Other: See musculoskeletal above. Procedure Note Riley Gutierrez MD - 04/26/[address] SKULL BASE TO MID-THIGH FDG - 04/26/2024 10:23 am HISTORY treatment response monitoring COMPARISON PET CT SKULL BASE TO MID-THIGH FDG, ACC: [id number], dated :40:52; CT CHEST WO CONTRAST, ACC: [id number], dated 2023-11-20 17:08:57 TECHNIQUE PET imaging was performed from the skull base to the mid thighs 53 minutesfollowing the intravenous administration of 10.79 mCi of F-18fluorodeoxyglucose (FDG) and the oral administration of Gastroview.Low-dose CT was performed for anatomic localization and attenuationcorrection purposes and fused with the PET images on a separateworkstation. The patient's glucose level at the time of radiotracerinjection was 114 mg/dL. This is a follow up PET/CT for the aboveindication. FINDINGS Maximum blood pool SUV: 2.9 Maximum hepatic SUV: 3.1 HEAD/NECK: Redemonstrated symmetric metabolic activity in the palatine and lingualtonsils which is likely inflammatory. No metabolically active cervical lymphadenopathy. Physiologic activity is present within the brain. CHEST: No metabolically active pulmonary nodules. Similar size of a 2.0 x 4.0 cm (previously 1.9 x 4.4 cm) right hilar masswith slightly increased metabolic activity, SUV 9.8 (previously 8.9). ABDOMEN/PELVIS: There are multiple new small foci of increased metabolic activitythroughout the liver, concerning for new metastatic lesions. An examplelesion is seen in the caudate lobe with an SUV 3.7. These are not wellseen on the noncontrast CT. Physiologic activity is present within the gastrointestinal andgenitourinary systems. MUSCULOSKELETAL: There is diffusely increased metabolic activity throughout the spine andpelvis, likely secondary to Neupogen use. There are similarhypermetabolic lytic lesions in the L4 vertebral body and pelvis. ADDITIONAL CT FINDINGS: Lines/Devices: Right-sided MediPort terminating in the right atrium. Head/Neck: No acute findings. Chest: Redemonstrated right hilar mass as described above. Abdomen/Pelvis: Hepatic steatosis. Mild atherosclerosis.Cholecystectomy. Musculoskeletal/Other: See musculoskeletal above. IMPRESSION IMPRESSION 1. Similar size of a right hilar mass with slightly increased metabolicactivity. 2. Multiple new small foci of increased metabolic activity throughout theliver, concerning for new metastatic lesions. 3. Stable osseous metastatic disease. I have personally reviewed this examination and agree with the resident/fellow physician's interpretation. Monica [place] MD [facility] NUCLEAR MED Final Result documented in this encounter Visit Diagnoses Diagnosis Small cell lung cancer, right (HCC)- Primary Anxiety Anxiety state, unspecified Claustrophobia Other isolated or specific phobias Encounter for antineoplastic chemotherapy Cancer, metastatic to bone (HCC) Secondary malignant neoplasm of bone and bone marrow Metastatic adenocarcinoma to liver (HCC) Secondary malignant neoplasm of liver Small cell lung cancer, right (HCC) documented in this encounter Care Teams Wet Washer Machine Relationship Specialty Start Date End Date Edel Clay MD [address] [place] [address] [place] [address] PCP - General Family Medicine 03/03/17 documented as of this encounter
--- OUTSIDE RECORDS SUMMARY | 2024-06-12 02:21 | External Medical Summary | Summary of Care ---
Author Name Unknown Organization [facility] Address [address] [place] [address] Phone [phone] Care Team Providers Care Change Person Name Role Phone Edel Clay MD Primary [...] ATEZOLIZUMAB,10 MG MS INJECTION, Monica Anderson MD [address] [place] [address] [place] [address] Phone: tel: fax: Hematology/Oncology Treatment, [address] [address] Phone: tel: fax: Referral ID Status Reason Start Date Expiration Date V isits Requested Visits Authorized [id number] Authorized 12/17/2023 06/13/2024 999 999 Encounter Details Date Type Department Care Team (Latest Contact Info) Description 03/15/2024 9:00 AM EST Hem/Onc Treatment Hematology/Oncolog y Treatment, [address] [place] [phone] [place], Chair 5 Hem Onc [address] [address] Encounter for antineoplastic chemotherapy*; Cancer, [...] 07/18/2008 06/01/2019 Overview (07/31/2009): thyroglobulin antibody >3000 [id number] 08/19/200608/10 Overview (08/25/2009): Renamed Per Clinical Trials Billing Project. Pt is a participant in the [facility] (Consortium of Rheumatology Researchers of [place]) national data collection study. For further information please call Dr Temo Castaneda or Kim Ríos, RN, CCRC at [phone] [facility] RESEARCH OTHER*[id number] 08/19/2006 11/06/2009 Overview (08/25/2009): Renamed Per Clinical Trials Billing Project. Pt is a participant in the [facility] (Consortium of Rheumatology Researchers of [place]) national data collection study. For further information please call Dr Temo Castaneda or Kim Ríos, RN, CCRC at [phone] Arthritis, rheumatoid 07/01/20062016 Abnormal blood chemistry 05/02/2006 [...] Description 04/26/2024 7:45 AM EST Imaging Radiology [address] [address] 04/29/2024 10:00 AM EST Laboratory Laboratory [facility] [address] [place] [phone] [place], Lab Scenery 200 [facility] [place] [address] 04/29/2024 10:30 AM EST Office Visit Hematology/Oncology [facility] [address] [facility] [place] [phone] Monica [place] MD [address] [place] [address] [place] [phone] 04/29/2024 11:00 AM EST Hem/Onc Treatment Hematology/Oncology Treatment, [place] [address] [place] [phone] [place], Chair 2 Hem Onc Scenery [address] [place] [address] 04/29/2024 3:30 PM EST Imaging Radiology [address] [place] [address] 07/14/2024 3:00 PM EST [facility] [address] [place] [address] Eloy Pond MD [address] [place] [address] 10/15/2024 8:40 AM EDT Office Visit Rheumatology [address] [place] [phone] Samy Russo MD [address] [facility] [place] [address] Health Maintenance Due Date Last Done Comments [...] this encounter Medical Devices Implanted Type Area Leather Tacker Device Identifier Shelf Expiration Date Model / Serial / Lot Port Implant W8f Poly Cath - [id number] Implanted:Qty : 1 on 12/31/2023 by Sin Burroughs MD at OR [facility] Right: Chest CR BARD : PERIPHERAL VASCULAR [id number] 10/09/2024 [id number] / / [id number] documented as of this encounter Visit Diagnoses [...] mL documented in this encounter Care Teams Change Person Relationship Specialty Start Date End Date Edel Clay MD [address] [place] [address] [place] [address] PCP - General Family Medicine 03/03/17 documented as of this encounter
--- OUTSIDE RECORDS SUMMARY | 2024-06-12 02:21 | External Medical Summary | Summary of Care ---
Author Name Unknown Organization [facility] Address [address] [place] [address] Phone [phone] Care Team Providers Care Child Care Centre Manager Name Role Phone Edel Clay MD Primary Care Provide r Reason for Visit * Reason Comments Chemotherapy Etoposide D2 * Episode Based Medications (Routine) - Authorized Specialty Diagnoses / Procedures Referred By Contac t Referred To Contact Diagnoses Encounter for antineoplastic chemotherapy Cancer, metastatic to bone (HCC) Metastatic adenocarcinoma to liver (HCC) Small cell lung cancer, right (HCC) Procedures RI CARBOPLATIN INJECTION RI FOSAPREPITANT INJECTION RI ETOPOSIDE 10 MG INJ RI INJ, ATEZOLIZUMAB,10 MG RI INJECTION, Monica Anderson MD [address] [place] [place] [address] Phone: tel: fax: Hematology/Oncology Treatment, [address] [place] [address] Phone: tel: fax: Referral ID Status Reason Start Date Expiration Date V isits Requested Visits Authorized [id number] Authorized 12/17/2023 06/13/2024 999 [id number] Encounter Details Date Type Department Care Team (Latest Contact Info) Description 04/06/2024 10:30 AM EST Hem/Onc Treatment Hematology/Oncolog y Treatment, [address] [address] [place], Chair 11 Hem Onc [address] [id number] Encounter for antineoplastic chemotherapy*; Cancer, metastatic to [...] as of this encounter (statuses as of 04/19/2024) Medications OMEGA-3 FATTY ACIDS 1000 MG PO [...] for Anxiety. 60 Tablet 04/05/20 24 Active Hospital, Clinic, or Other Facility [...] as of this encounter (statuses as of 04/19/2024) Active Problems Problem Noted Date Diagnosed Date [...] as of this encounter (statuses as of 04/19/2024) Resolved Problems Problem Noted Date Diagnosed Date [...] 07/18/2008 06/01/2019 Overview (07/31/2009): thyroglobulin antibody >3000 [id number] 08/19/200608/10 Overview (08/25/2009): Renamed Per Clinical Trials Billing Project. Pt is a participant in the [facility] (Consortium of Rheumatology Researchers of [place]) national data collection study. For further information please call Dr Temo Castaneda or Kim Ríos, RN, CCRC at [phone] [facility] RESEARCH OTHER*[id number] 08/19/2006 11/06/2009 Overview (08/25/2009): Renamed Per Clinical Trials Billing Project. Pt is a participant in the [facility] (Consortium of Rheumatology Researchers of [facility]) national data collection study. For further information please call Dr Temo Castaneda or Kim Ríos, RN, CCRC at [phone] Arthritis, rheumatoid 07/01/20062016 Abnormal blood chemistry 05/02/2006 [...] as of this encounter (statuses as of 04/19/2024) Immunizations Name Administration Dates Next Due COVID-19 [...] Sign Reading Time Taken Comments Blood Pressure 119/74 04/06/2024 11:00 AM EST Pulse 101 04/06/2024 11:00 AM EST Temperature 36.9 C (98.4 F) 04/06/2024 11:[address] Respiratory Rate 16 04/06/2024 11:00 AM EST Oxygen Saturation 98% 04/06/2024 11:00 AM EST Inhaled Oxygen Concentration - - Weight - - Height - - Body Mass Index - - documented in this encounter Nursing Notes * Domitila Nettles RN - 04/06/2024 3:36 PM EST Pt completed treatment without issues. VAD flushed with 10 ml NSS and Heparin 5 ml (100 units/ml). Rogel needle removed intact. Goals: Pt will remain free from injury. Possible barriers to meeting goals: ambulation with IV pole Stability of the patient: Moderately stable - low risk of patient condition declining or worsening Summary regarding today's goals: Met: . Pt remained free from injury during treatment today. Discharged in stable condition. * Domitila Nettles RN - 04/06/2024 11:01 AM EST Chair 5 Chemotherapy/Immunotherapy agents: ETOPOSIDE Consent for chemotherapy drug treatment complete, dated, and signed? yes, date - 12/12/23 Treatment lab parameters met? Yes Has treatment weight changed > than 10%? No Treatment preauthorized? Yes VITALS Filed Vitals: 04/06/24 1100 BP: 119/74 Pulse: 101 Resp: 16 Temp: 36.9 C (98.4 F) SpO2: 98% BP Readings from Last 2 Encounters: 04/06/24 119/74 04/05/24 130/79 Pulse Readings from Last 2 Encounters: 04/06/24 101 04/05/24 88 Resp Readings from Last 2 Encounters: 04/06/24 16 04/05/24 16 SpO2 Readings from Last 2 Encounters: 04/06/24 98% 04/05/24 94% Temp Readings from Last 2 Encounters: 04/06/24 36.9 C (98.4 F) 04/05/24 36.8 C (98.2 F) (Tympanic) Urine protein: N/A Patient education completed for treatment? Yes Blood transfusion consent signed and complete? NA Return appointment scheduled? Yes Patient had provider visit today? No - If no provider visit must complete Pretreatment Assessment PRE-TREATMENT ASSESSMENT: NEURO: denies symptoms CV/RESP: denies symptoms GI/: nausea: intermittent mild nausea, no vomiting. Zofran PRN is effective and constipation: occasional, uses diet to manage OTHER: denies any additional symptoms PAIN: 0 Functional Status: Functional status at today's visit: [...] Description 04/26/2024 7:45 AM EST Imaging Radiology [facility] 1st [facility] [address] [facility] [place] [address] 04/29/2024 10:00 AM EST Laboratory Laboratory [facility] [place] [address] [place] [phone] Diana Mortensen [address] [place] [address] 04/29/2024 10:30 AM EST Office Visit Hematology/Oncology [facility]ery [facility] [place] [address] [place] [address] Monica Ward MD [address] [facility] [place] [phone] 04/29/2024 11:00 AM EST Hem/Onc Treatment Hematology/Oncology Treatment, [place] [address] [place] [phone] [place], Chair 2 Hem Onc Scenery [address] [place] [address] 04/29/2024 3:30 PM EST Imaging Radiology [facility] [address] [facility] [place] [address] 07/14/2024 3:00 PM EST Office Visit Pulmonary Medicine, [address] [place] [address] Eloy Pond MD [address] [facility] [address] 10/15/2024 8:40 AM EDT Office Visit Rheumatology [address] [place] [address] Samy Russo MD [facility] [place] [address] Health Maintenance Due Date Last Done Comments [...] this encounter Medical Devices Implanted Type Area Balance Recesser Device Identifier Shelf Expiration Date Model / Serial / Lot Port Implant W8f Poly Cath - [id number] Implanted:Qty : 1 on 12/31/2023 by Sin Burroughs MD at OR [facility] Right: Chest CR BARD : PERIPHERAL VASCULAR [id number] 10/09/2024 [id number] / / [id number] documented as of this encounter Visit Diagnoses [...] weight), IV Piggyback, ONCE, 1 dose, On Fri04/06/24 at 1230, Administer over 60 Minutes, Recommended concentration is less than or equal to 0.4 mg/mL. If concentration is greater than 0.4 mg/mL recommend to administer through 0.22 micron low protein binding filter.Indications:Encount er for antineoplastic chemotherapy,Cancer, metastatic to bone (HCC),Metastatic adenocarcinoma to liver (HCC),Small cell lung cancer, right (HCC) Start Infusion 04/06/2024 11:34 AM EST 190 mg 519.5 mL/hr hEParin 100 UNIT/ML Lock Flush inj 500 Units 500 Units (5 mL), IV Lock, PRN Other, IV Flush, Starting on Fri04/06/24 at 1057, Until Fri04/06/24 at 1938, For 24 hours, Do not flush if lock, PICC, or central line not in place; IV infusing or unable to flush.Indications:Encounte r for antineoplastic chemotherapy,Cancer, metastatic to bone (HCC),Metastatic adenocarcinoma to liver (HCC),Small cell lung cancer, right (HCC) Given 04/06/2024 12:40 PM EST 500 Units NSS infusion Intravenous, at 50 mL/hr, PRN, Starting on Fri04/06/24 at 1200, Until Fri04/06/24 at 1938, Maintenance lineIndications:Encounter for antineoplastic chemotherapy,Cancer, metastatic to bone (HCC),Metastatic adenocarcinoma to liver (HCC),Small cell lung cancer, right (HCC) Start Infusion 04/06/2024 10:58 AM EST 50 mL/hr ondansetron (Zofran) tab 8 mg 8 mg, Oral, ONCE, On Fri04/06/24 at 1115, For 1 dose, Give 30 minutes prior to chemotherapy.Indications:E ncounter for antineoplastic chemotherapy,Cancer, metastatic to bone (HCC),Metastatic adenocarcinoma to liver (HCC),Small cell lung cancer, right (HCC) Given 04/06/2024 11:15 AM EST 8 mg sodium chloride 0.9 % flush central line 10 mL 10 mL, IV Push, PRN Other, IV Flush, Starting on Fri04/06/24 at 1057, Until Fri04/06/24 at 1938, For 24 hours, Do not flush if lock, PICC, or central line not in place; IV infusing or unable to flush.Indications:Encounte r for antineoplastic chemotherapy,Cancer, metastatic to bone (HCC),Metastatic adenocarcinoma to liver (HCC),Small cell lung cancer, right (HCC) Given 04/06/2024 12:39 PM EST 10 mL documented in this encounter Care Teams Child Care Centre Manager Relationship Specialty Start Date End Date Edel Clay MD [address] [place] [address] [place] [address] PCP - General Family Medicine 03/03/17 documented as of this encounter
--- OUTSIDE RECORDS SUMMARY | 2024-06-12 02:21 | External Medical Summary | Summary of Care ---
Author Name Unknown Organization [facility] Address [address] [place] [address] Phone [phone] Care Team Providers Care Social Media Campaign Manager Name Role Phone Edel Clay MD [...] Small cell lung cancer, right (HCC) Procedures NV CARBOPLATIN INJECTION NV FOSAPREPITANT INJECTION NV ETOPOSIDE 10 MG INJ NV INJ, ATEZOLIZUMAB,10 MG NV INJECTION, Monica Anderson MD [address] [place] [address] [place] [address] Phone: tel: fax: Hematology/Oncology Treatment, [address] [address] Phone: tel: fax: Referral ID Status Reason Start Date Expiration Date V isits Requested Visits Authorized [id number] Authorized 12/17/2023 06/13/[phone] Encounter Details Date Type Department Care Team (Latest Contact Info) Description 03/15/2024 9:00 AM EST Hem/Onc Treatment Hematology/Oncolog y Treatment, [address] [place] [address] [place], Chair 5 Hem Onc [address] [address] Encounter for antineoplastic chemotherapy*; Cancer, [...] 07/18/2008 06/01/2019 Overview (07/31/2009): thyroglobulin antibody >3000 [id number] 08/19/200608/10 Overview (08/25/2009): Renamed Per Clinical Trials Billing Project. Pt is a participant in the [facility] (Consortium of Rheumatology Researchers of [place]) national data collection study. For further information please call Dr Temo Castaneda or Kim Ríos, RN, CCRC at [phone] [facility] RESEARCH OTHER*[id number] 08/19/2006 11/06/2009 Overview (08/25/2009): Renamed Per Clinical Trials Billing Project. Pt is a participant in the [facility] (Consortium of Rheumatology Researchers of [place]) national data collection study. For further information please call Dr Temo Castaneda or Kim Ríos, RN, CCRC at [phone] Arthritis, rheumatoid 07/01/20062016 Abnormal blood chemistry 05/02/2006 [...] Description 04/26/2024 7:45 AM EST Imaging Radiology [address] [address] 04/29/2024 10:00 AM EST Laboratory Laboratory [facility] [address] [place] [address] [place], Lab Scenery 200 [facility] [place] [address] 04/29/2024 10:30 AM EST Office Visit Hematology/Oncology [facility] [address] [facility] [place] [phone] Monica Ward MD [address] [place] [address] [place] [address] 04/29/2024 11:00 AM EST Hem/Onc Treatment Hematology/Oncology Treatment, [place] [address] [place] [phone] [place], Chair 2 Hem Onc Scenery [address] [place] [address] 04/29/2024 3:30 PM EST Imaging Radiology [address] [place] [address] 07/14/2024 3:00 PM EST [facility] [address] [place] [address] Eloy Pond MD [address] [place] [address] 10/15/2024 8:40 AM EDT Office Visit Rheumatology [address] [place] [phone] Samy Russo MD [address] [facility] [place] [address] Health Maintenance Due Date Last Done Comments [...] this encounter Medical Devices Implanted Type Area Tie Cutter Device Identifier Shelf Expiration Date Model / Serial / Lot Port Implant W8f Poly Cath - [id number] Implanted:Qty : 1 on 12/31/2023 by Sin Burroughs MD at OR [facility] Right: Chest CR BARD : PERIPHERAL VASCULAR [id number] 10/09/2024 [id number] / / [id number] documented as of this encounter Visit Diagnoses [...] mL documented in this encounter Care Teams Social Media Campaign Manager Relationship Specialty Start Date End Date Edel Clay MD [address] [place] [address] [place] [address] PCP - General Family Medicine 03/03/17 documented as of this encounter
--- OUTSIDE RECORDS SUMMARY | 2024-06-12 02:21 | External Medical Summary | Summary of Care ---
Author Name Unknown Organization [facility] Address [address] [place] [address] Phone [phone] Care Team Providers Care Lpn Rn Name Role Phone Edel Clay MD Primary [...] ATEZOLIZUMAB,[address] INJECTION, Monica Anderson MD [address] [place] [address] [place] [address] Phone: tel: fax: Hematology/Oncology Treatment, [address] [place] [address] Phone: tel: fax: Referral ID Status Reason Start Date Expiration Date V isits Requested Visits Authorized [id number] Authorized 12/17/2023 06/13/[phone] Encounter Details Date Type Department Care Team (Latest Contact Info) Description 03/17/2024 12:30 PM EST Hem/Onc Treatment Hematology/Oncolog y Treatment, [address] [address] [place], Chair 7 Hem Onc [address] [address] Malignant neoplasm of upper-outer quadrant [...] 07/18/2008 06/01/2019 Overview (07/31/2009): thyroglobulin antibody >3000 [id number] 08/19/200608/10 Overview (08/25/2009): Renamed Per Clinical Trials Billing Project. Pt is a participant in the [facility] (Consortium of Rheumatology Researchers of [facility]) national data collection study. For further information please call Dr Temo Castaneda or Kim Ríos, RN, CCRC at [phone] [facility] RESEARCH OTHER*[id number] 08/19/2006 11/06/2009 Overview (08/25/2009): Renamed Per Clinical Trials Billing Project. Pt is a participant in the [facility] (Consortium of Rheumatology Researchers of [place]) national data collection study. For further information please call Dr Temo Castaneda or Kim Ríos, RN, CCRC at [phone] Arthritis, rheumatoid 07/01/20062016 Abnormal blood chemistry 05/02/2006 [...] Description 04/26/2024 7:45 AM EST Imaging Radiology [address] [place] [address] 04/29/2024 10:00 AM EST Laboratory Laboratory [facility] [place] [address] [place] [phone] Diana Mortensen [facility] [address] [place] [address] [address] 04/29/2024 10:30 AM EST Office Visit Hematology/Oncology [facility] [place] [address] [place] [address] [phone] Monica Ward MD [address] [place] [address] 04/29/2024 11:00 AM EST Hem/Onc Treatment Hematology/Oncology Treatment, [place] [address] [place] [address] [place], Chair 2 Hem Onc Scenery [address] [place], [place] [address] 04/29/2024 3:30 PM EST [facility] 132 [facility] [place] [address] 07/14/2024 3:00 PM EST Office Visit Pulmonary Medicine, [facility] 132 [facility] [place] [address] Eloy Pond MD [address] [facility] [address] 10/15/2024 8:40 AM EDT Office Visit Rheumatology [address] [place] [phone] Samy Russo MD [facility] [place] [address] Health Maintenance Due Date Last Done Comments [...] this encounter Medical Devices Implanted Type Area Logistics Planner Device Identifier Shelf Expiration Date Model / Serial / Lot Port Implant W8f Poly Cath - [id number] Implanted:Qty : 1 on 12/31/2023 by Sin Burroughs MD at OR [facility] Right: Chest CR BARD : PERIPHERAL VASCULAR [id number] 10/09/2024 [id number] / / [id number] documented as of this encounter Results * PHOSPHORUS (03/15/2024 7:58 AM EST) Phosphorus 2.6 2.5 - 4.8 mg/dL 03/17/2024 1:00 PM EST LABORATORY [facility] Blood Venous blood specimen / Unknown Venipuncture / Unknown 03/15/2024 7:58 AM EST 03/15/2024 7:58 AM EST us Sukhjinder Faria MD LAB BLOOD ORDERABLES Final Res ult LAB[facility]ATORY [facility] [address] [place] [address] documented in this encounter Visit [...] mL/hr documented in this encounter Care Teams Lpn Rn Relationship Specialty Start Date End Date Edel Clay MD [address] [place] [address] [place] [address] PCP - General Family Medicine 03/03/17 documented as of this encounter
--- OUTSIDE RECORDS SUMMARY | 2024-06-12 02:21 | External Medical Summary | Summary of Care ---
Author Name Unknown Organization [facility] Address [address] [place] [address] Phone [phone] Care Team Providers Care Pastry Cook Apprentice Name Role Phone Edel Clay MD Primary Care Provide r Reason for Visit * Reason Comments Medication Administration Fulphila * Episode Based Medications (Routine) - Authorized Specialty Diagnoses / Procedures Referred By Contac t Referred To Contact Diagnoses Encounter for antineoplastic chemotherapy Cancer, metastatic to bone (HCC) Metastatic adenocarcinoma to liver (HCC) Small cell lung cancer, right (HCC) Procedures NM CARBOPLATIN INJECTION NM FOSAPREPITANT INJECTION NM ETOPOSIDE 10 MG INJ NM INJ, ATEZOLIZUMAB,10 MG NM INJECTION, FULMonica Fontanez MD [address] [place], [place] [address] [address] Phone: tel: fax: Hematology/Oncology Treatment, [address] [place] [address] Phone: tel: fax: Referral ID Status Reason Start Date Expiration Date V isits Requested Visits Authorized [id number] Authorized 12/17/2023 06/13/[phone] Encounter Details Date Type Department Care Team (Latest Contact Info) Description 03/18/2024 4:00 PM EST Immunization/ Injection Hematology/Oncology Treatment, [address] [address] [place], Chair 10 Hem Onc [address] [place] [address] Encounter for antineoplastic chemotherapy*; Cancer, metastatic [...] 07/18/2008 06/01/2019 Overview (07/31/2009): thyroglobulin antibody >3000 [facility] 08/19/200608/10 Overview (08/25/2009): Renamed Per Clinical Trials Billing Project. Pt is a participant in the [facility] (Consortium of Rheumatology Researchers of [place]) national data collection study. For further information please call Dr Temo Castaneda or Kim Ríos, RN, CCRC at [phone] [facility] RESEARCH OTHER*[id number] 08/19/2006 11/06/2009 Overview (08/25/2009): Renamed Per Clinical Trials Billing Project. Pt is a participant in the [facility] (Consortium of Rheumatology Researchers of [facility]) national data collection study. For further information please call Dr Temo Castaneda or Kim Ríos, RN, CCRC at [phone] Arthritis, rheumatoid 07/01/20062016 Abnormal blood chemistry 05/02/2006 [...] Nursing Notes * Francine Lewis RN - 03/18/2024 4:28 PM EST Chair 7 Patient here for injection. She verbalized that she is feeling tired but no worse that usual at this point in treatment. Fulphila given to the left upper arm with no difficulty. Pt discharged in stable condition. documented in this encounter Plan of Treatment Upcoming Encounters Date Type Department Care Team (Late st Contact Info) Description 04/26/2024 7:45 AM EST Imaging Radiology [address] 132 [facility] [place] [address] 04/29/2024 10:00 AM EST Laboratory Laboratory [facility] [address] [place] [phone] [place] Lab [facility] [address] [facility] [place] [address] 04/29/2024 10:30 AM EST Office Visit Hematology/Oncology [facility] [place] [address] [place] [address] Monica Ward MD [address] [place] [address] [place] [phone] 04/29/2024 11:00 AM EST Hem/Onc Treatment Hematology/Oncology Treatment, [place] [address] [place] [address] [place], Chair 2 Hem Onc Scenery [address] [place] [address] 04/29/2024 3:30 PM EST Imaging Radiology [facility] 1st [facility] 132 [facility] [place] [address] 07/14/2024 3:00 PM EST Office Visit Pulmonary Medicine, [facility] 132 [facility] [place] [address] Eloy Pond MD [address] [facility] [place] [address] 10/15/2024 8:40 AM EDT Office Visit Rheumatology [address] [place] [address] Samy Russo MD [address] [facility] [place], [place] [address] Health Maintenance Due Date Last Done Comments [...] this encounter Medical Devices Implanted Type Area Senior Grants Officer Device Identifier Shelf Expiration Date Model / Serial / Lot Port Implant W8f Poly Cath - [id number] Implanted:Qty : 1 on 12/31/2023 by Sin Burroughs MD at [facility] Right: Chest CR BARD : PERIPHERAL VASCULAR [id number] 10/09/2024 [id number] / / [id number] documented as of this encounter Visit Diagnoses [...] MAR Action Action Date Dose Rate Site Pegfilgrastim-jmdb (Fulphila) inj 6 mg 6 mg, Subcutaneous, ONCE, On Lizbeth 03/18/24 at 1645, For 1 doseIndications:Encounter for antineoplastic chemotherapy,Cancer, metastatic to bone (HCC),Metastatic adenocarcinoma to liver (HCC),Small cell lung cancer, right (HCC) Given 03/18/2024 4:14 PM EST 6 mg Arm Left Upper documented in this encounter Care Teams Pastry Cook Apprentice Relationship Specialty Start Date End Date Edel Clay MD [address] [place] [address] [place] [phone] PCP - General Family Medicine 03/03/17 documented as of this encounter
--- OUTSIDE RECORDS SUMMARY | 2024-06-12 02:21 | External Medical Summary | Summary of Care ---
Author Name Unknown Organization [facility] Address [address] [place] [address] Phone [phone] Care Team Providers Care Consulting Technical Manager Name Role Phone Edel Clay MD Primary Care Provide r Reason for Visit * Reason Comments Chemotherapy Etoposide D2 * Episode Based Medications (Routine) - Authorized Specialty Diagnoses / Procedures Referred By Contac t Referred To Contact Diagnoses Encounter for antineoplastic chemotherapy Cancer, metastatic to bone (HCC) Metastatic adenocarcinoma to liver (HCC) Small cell lung cancer, right (HCC) Procedures NJ CARBOPLATIN INJECTION NJ FOSAPREPITANT INJECTION NJ ETOPOSIDE 10 MG INJ NJ INJ, ATEZOLIZUMAB,10 MG NJ INJECTION, Monica Anderson MD [address] [place] [address] Phone: tel: fax: Hematology/Oncology Treatment, [address] [place] [address] Phone: tel: fax: Referral ID Status Reason Start Date Expiration Date V isits Requested Visits Authorized [id number] Authorized 12/17/2023 06/13/[id number] Encounter Details Date Type Department Care Team (Latest Contact Info) Description 04/06/2024 10:30 AM EST Hem/Onc Treatment Hematology/Oncolog y Treatment, [address] [address] [place], Chair 11 Hem Onc [address] [id number] Encounter for antineoplastic chemotherapy*; Cancer, metastatic to [...] 07/18/2008 06/01/2019 Overview (07/31/2009): thyroglobulin antibody >3000 [id number] 08/19/200608/10 Overview (08/25/2009): Renamed Per Clinical Trials Billing Project. Pt is a participant in the [facility] (Consortium of Rheumatology Researchers of [place]) national data collection study. For further information please call Dr Temo Castaneda or Kim Ríos, RN, CCRC at [phone] [facility] RESEARCH OTHER*[id number] 08/19/2006 11/06/2009 Overview (08/25/2009): Renamed Per Clinical Trials Billing Project. Pt is a participant in the [facility] (Consortium of Rheumatology Researchers of [facility]) national data collection study. For further information please call Dr Temo Castaneda or Kim Ríos, RN, CCRC at [phone] Arthritis, rheumatoid 07/01/20062016 Abnormal blood chemistry 05/02/2006 [...] Description 04/26/2024 7:45 AM EST Imaging Radiology [facility] 1st [facility] [address] [facility] [place] [address] 04/29/2024 10:00 AM EST Laboratory Laboratory [facility] [place] [address] [place] [phone] Diana Mortensen Sc[address] [place] [address] 04/29/2024 10:30 AM EST Office Visit Hematology/Oncology [place] [place] [address] [place] [phone] Monica Ward MD [address] [facility] [place] [phone] 04/29/2024 11:00 AM EST Hem/Onc Treatment Hematology/Oncology Treatment, [place] [address] [place] [phone] [place], Chair 2 Hem Onc Scenery [address] [place] [address] 04/29/2024 3:30 PM EST [facility] [address] [facility] [place] [address] 07/14/2024 3:00 PM EST Office Visit Pulmonary Medicine, [address] [place] [address] Eloy Pond MD [address] [facility] [address] 10/15/2024 8:40 AM EDT Office Visit Rheumatology [address] [place] [phone] Samy Russo MD [facility] [place] [address] Health Maintenance Due Date Last Done Comments [...] encounter Medical Devices Implanted Type Area Consulting Engineer Device Identifier Shelf Expiration Date Model / Serial / Lot Port Implant W8f Poly Cath - [id number] Implanted:Qty : 1 on 12/31/2023 by Sin Burroughs MD at OR [facility] Right: Chest CR BARD : PERIPHERAL VASCULAR [id number] 10/09/2024 [id number] / / [id number] documented as of this encounter Visit Diagnoses [...] mL documented in this encounter Care Teams Consulting Technical Manager Relationship Specialty Start Date End Date Edel Clay MD [address] [place] [address] [place] [address] PCP - General Family Medicine 03/03/17 documented as of this encounter
--- OUTSIDE RECORDS SUMMARY | 2024-06-12 02:21 | External Medical Summary | Summary of Care ---
Author Name Unknown Organization [facility] Address [address] [place] [address] Phone [phone] Care Team Providers Care Metal Cans Supervisor Name Role Phone Edel Clay MD Primary [...] Small cell lung cancer, right (HCC) Procedures MA CARBOPLATIN INJECTION MA FOSAPREPITANT INJECTION MA ETOPOSIDE 10 MG INJ MA INJ, ATEZOLIZUMAB,10 MG MA INJECTION, Monica Anderson MD [address] [place] [address] [place] [address] Phone: tel: fax: Hematology/Oncology Treatment, [address] [address] Phone: tel: fax: Referral ID Status Reason Start Date Expiration Date V isits Requested Visits Authorized [id number] Authorized 12/17/2023 06/13/[phone] Encounter Details Date Type Department Care Team (Latest Contact Info) Description 03/15/2024 9:00 AM EST Hem/Onc Treatment Hematology/Oncolog y Treatment, [address] [place] [address] Balb[place], Chair 5 Hem Onc [address] [address] Encounter for antineoplastic chemotherapy*; Cancer, [...] 07/18/2008 06/01/2019 Overview (07/31/2009): thyroglobulin antibody >3000 [id number] 08/19/200608/10 Overview (08/25/2009): Renamed Per Clinical Trials Billing Project. Pt is a participant in the [facility] (Consortium of Rheumatology Researchers of [place]) national data collection study. For further information please call Dr Temo Castaneda or Kim Ríos, RN, CCRC at [phone] [facility] RESEARCH OTHER*[id number] 08/19/2006 11/06/2009 Overview (08/25/2009): Renamed Per Clinical Trials Billing Project. Pt is a participant in the [facility] (Consortium of Rheumatology Researchers of [place]) national data collection study. For further information please call Dr Temo Castaneda or Kim Ríos, RN, CCRC at [phone] Arthritis, rheumatoid 07/01/20062016 Abnormal blood chemistry 05/02/2006 [...] Description 04/26/2024 7:45 AM EST Imaging Radiology [address] [address] 04/29/2024 10:00 AM EST Laboratory Laboratory [facility] [address] [place] [phone] [place], Lab Scenery [address] [facility] [place] [address] 04/29/2024 10:30 AM EST Office Visit Hematology/Oncology [facility] [address] [facility] [place] [phone] Monica Ward MD [address] [place] [address] [place] [address] 04/29/2024 11:00 AM EST Hem/Onc Treatment Hematology/Oncology Treatment, [place] [address] [place] [phone] Balb[place], Chair 2 Hem Onc Scenery [address] [place] [address] 04/29/2024 3:30 PM EST Imaging Radiology [address] [place] [address] 07/14/2024 3:00 PM EST [facility] [address] [place] [address] Eloy Pond MD [address] [place] [address] 10/15/2024 8:40 AM EDT Office Visit Rheumatology [address] [place] [phone] Samy Russo MD [address] [facility] [place] [address] Health Maintenance Due Date Last Done Comments [...] this encounter Medical Devices Implanted Type Area Tablet Making Machine Operator Device Identifier Shelf Expiration Date Model / Serial / Lot Port Implant W8f Poly Cath - [id number] Implanted:Qty : 1 on 12/31/2023 by Sin Burroughs MD at OR [facility] Right: Chest CR BARD : PERIPHERAL VASCULAR [id number] 10/09/2024 [id number] / / [id number] documented as of this encounter Visit Diagnoses [...] mL documented in this encounter Care Teams Metal Cans Supervisor Relationship Specialty Start Date End Date Edel Clay MD [address] [place] [address] [place] [address] PCP - General Family Medicine 03/03/17 documented as of this encounter
--- OUTSIDE RECORDS SUMMARY | 2024-06-12 02:21 | External Medical Summary | Summary of Care ---
Author Name Unknown Organization [facility] Address [address] [place] [address] Phone [phone] Care Team Providers Care Motor Equipment Lieutenant Name Role Phone Edel Clay MD Primary Care Provide r Reason for Visit * Reason Comments Chemotherapy Day 3, cycle 6 etopo side * Episode Based Medications (Routine) - Authorized Specialty Diagnoses / Procedures Referred By Contac t Referred To Contact Diagnoses Encounter for antineoplastic chemotherapy Cancer, metastatic to bone (HCC) Metastatic adenocarcinoma to liver (HCC) Small cell lung cancer, right (HCC) Procedures IA CARBOPLATIN INJECTION IA FOSAPREPITANT INJECTION IA ETOPOSIDE 10 MG INJ IA INJ, ATEZOLIZUMAB,10 MG [place] INJECTION, Monica Anderson MD [address] [place] [address] [place] [address] Phone: tel: fax: Hematology/Oncology Treatment, [address] [place] [address] Phone: tel: fax: Referral ID Status Reason Start Date Expiration Date V isits Requested Visits Authorized [id number] Authorized 12/17/2023 06/13/[phone] Encounter Details Date Type Department Care Team (Latest Contact Info) Description 04/07/2024 8:45 AM EST Hem/Onc Treatment Hematology/Oncolog y Treatment, [address] [place] [address] [place], Chair 2 Hem Onc [address] [address] Encounter for antineoplastic chemotherapy*; Cancer, metastatic to [...] 07/18/2008 06/01/2019 Overview (07/31/2009): thyroglobulin antibody >3000 [id number][facility] 08/19/200608/10 Overview (08/25/2009): Renamed Per Clinical Trials Billing Project. Pt is a participant in the [employer] (Consortium of Rheumatology Researchers of [place]) national data collection study. For further information please call Dr Temo Castaneda or Kim Ríos, RN, CCRC at [phone] [facility] RESEARCH OTHER*[id number] 08/19/2006 11/06/2009 Overview (08/25/2009): Renamed Per Clinical Trials Billing Project. Pt is a participant in the [facility] (Consortium of Rheumatology Researchers of [facility]) national data collection study. For further information please call Dr Temo Castaneda or Kim Ríos, RN, CCRC at [phone] Arthritis, rheumatoid 07/01/20062016 Abnormal blood chemistry 05/02/2006 [...] Sign Reading Time Taken Comments Blood Pressure 127/66 04/07/2024 8:53 AM EST Pulse 54 04/07/2024 8:53 AM EST Temperature 36.5 C (97.7 F) 04/07/2024 8:53 AM ES T Respiratory Rate 18 04/07/2024 8:53 AM EST Oxygen Saturation 97% 04/07/2024 8:53 AM EST Inhaled Oxygen Concentration - - Weight - - Height - - Body Mass Index - - documented in this encounter Nursing Notes * Adalgisa Fuentes, RN - 04/07/2024 10:48 AM EST Infusion complete. Patient tolerated well. No complaints voiced. VAD with + blood return, flushed with [...] left facility in stable condition. * Adalgisa Fuentes, NORM - 04/07/2024 8:54 AM EST Chair 12. Patient here for treatment. VAD accessed without difficulty, + blood return, flushed with 10 ml NSS and dressing applied. Chemotherapy/Immunotherapy agents: ETOPOSIDE Consent for chemotherapy drug treatment complete, dated, and signed? yes, date - 12/12/23 Treatment lab parameters met? Yes Has treatment weight changed > than 10%? No Treatment preauthorized? Yes VITALS Filed Vitals: 04/07/24 0853 BP: 127/66 Pulse: 54 Resp: 18 Temp: 36.5 C (97.7 F) TempSrc: Tympanic SpO2: 97% BP Readings from Last 2 Encounters: 04/07/24 127/66 04/06/24 119/74 Pulse Readings from Last 2 Encounters: 04/07/24 54 04/06/24 101 Resp Readings from Last 2 Encounters: 04/07/24 18 04/06/24 16 SpO2 Readings from Last 2 Encounters: 04/07/24 97% 04/06/24 98% Temp Readings from Last 2 Encounters: 04/07/24 36.5 C (97.7 F) (Tympanic) 04/06/24 36.9 C (98.4 F) Urine protein: N/A Patient education completed for [...] Description 04/26/2024 7:45 AM EST Imaging Radiology [address] [place] [address] 04/29/2024 10:00 AM EST Laboratory Laboratory [facility] [address] [place] [phone] [place], Lab Scenery [address] [place] [address] 04/29/2024 10:30 AM EST Office Visit Hematology/Oncology [facility] [address] [place] [phone] Monica Ward MD [address] [place] [address] [place] [phone] 04/29/2024 11:00 AM EST Hem/Onc Treatment Hematology/Oncology Treatment, [place] [address] [place], [place] [phone] Bal[place], Chair 2 Hem Onc [facility] [address] [place] [address] 04/29/2024 3:30 PM EST Imaging Radiology [facility] 1st [facility] [address] [place] [address] 07/14/2024 3:00 PM EST Office Visit Pulmonary Medicine, [facility] [address] [place] [address] Eloy Pond MD [address] [facility] [place] [address] 10/15/2024 8:40 AM EDT Office Visit Rheumatology [address] [place] [phone] Samy Russo MD [facility] [place] [address] Health Maintenance Due Date Last Done Comments [...] 08/29/2020, Additional history exists TSH 04/05/2025 04/05/2024, 1108/2023, 02/23/2024, Additional history exists Lipid Panel 05/19/2025 [...] this encounter Medical Devices Implanted Type Area Interactive Multimedia Designer Device Identifier Shelf Expiration Date Model / Serial / Lot Port Implant W8f Poly Cath - [id number] Implanted:Qty : 1 on 12/31/2023 by Sin Burroughs MD at OR [facility] Right: Chest CR BARD : PERIPHERAL VASCULAR [id number] 10/09/2024 [id number] / / [id number] documented as of this encounter Visit Diagnoses [...] weight), IV Piggyback, ONCE, 1 dose, On Fri04/07/24 at 1030, Administer over 60 Minutes, Recommended concentration is less than or equal to 0.4 mg/mL. If concentration is greater than 0.4 mg/mL recommend to administer through 0.22 micron low protein binding filter.Indications:Encount er for antineoplastic chemotherapy,Cancer, metastatic to bone (HCC),Metastatic adenocarcinoma to liver (HCC),Small cell lung cancer, right (HCC) Start Infusion 04/07/2024 9:34 AM EST 190 mg 519.5 mL/hr hEParin 100 UNIT/ML Lock Flush inj 500 Units 500 Units (5 mL), IV Lock, PRN Other, IV Flush, Starting on Fri04/07/24 at 0852, Until Fri04/07/24 at 1713, For 24 hours, Do not flush if lock, PICC, or central line not in place; IV infusing or unable to flush.Indications:Encounte r for antineoplastic chemotherapy,Cancer, metastatic to bone (HCC),Metastatic adenocarcinoma to liver (HCC),Small cell lung cancer, right (HCC) Given 04/07/2024 10:39 AM EST 500 Units NSS infusion Intravenous, at 50 mL/hr, PRN, Starting on Fri04/07/24 at 1000, Until Fri04/07/24 at 1713, Maintenance lineIndications:Encounter for antineoplastic chemotherapy,Cancer, metastatic to bone (HCC),Metastatic adenocarcinoma to liver (HCC),Small cell lung cancer, right (HCC) Start Infusion 04/07/2024 9:00 AM EST 50 mL/hr ondansetron (Zofran) tab 8 mg 8 mg, Oral, ONCE, On Fri04/07/24 at 0915, For 1 dose, Give 30 minutes prior to chemotherapy.Indications:E ncounter for antineoplastic chemotherapy,Cancer, metastatic to bone (HCC),Metastatic adenocarcinoma to liver (HCC),Small cell lung cancer, right (HCC) Given 04/07/2024 9:02 AM EST 8 mg sodium chloride 0.9 % flush central line 10 mL 10 mL, IV Push, PRN Other, IV Flush, Starting on Fri04/07/24 at 0852, Until Fri04/07/24 at 1713, For 24 hours, Do not flush if lock, PICC, or central line not in place; IV infusing or unable to flush.Indications:Encounte r for antineoplastic chemotherapy,Cancer, metastatic to bone (HCC),Metastatic adenocarcinoma to liver (HCC),Small cell lung cancer, right (HCC) Given 04/07/2024 10:39 AM EST 10 mL documented in this encounter Care Teams Motor Equipment Lieutenant Relationship Specialty Start Date End Date Edel Clay MD [address] [place] [address] [place] [address] PCP - General Family Medicine 03/03/17 documented as of this encounter
--- OUTSIDE RECORDS SUMMARY | 2024-06-12 02:21 | External Medical Summary | Summary of Care ---
Author Name Unknown Organization [facility] Address [address] [place] [address] Phone [phone] Care Team Providers Care Votator Machine Operator Name Role Phone Edel Clay MD [...] Small cell lung cancer, right (HCC) Procedures SC CARBOPLATIN INJECTION SC FOSAPREPITANT INJECTION SC ETOPOSIDE 10 MG INJ SC INJ, ATEZOLIZUMAB,10 MG SC INJECTION, Monica Anderson MD [address] [place] [address] [place] [address] Phone: tel: fax: Hematology/Oncology Treatment, [address] [place] [address] Phone: tel: fax: Referral ID Status Reason Start Date Expiration Date V isits Requested Visits Authorized [id number] Authorized 12/17/2023 06/13/[phone] Encounter Details Date Type Department Care Team (Latest Contact Info) Description 04/07/2024 8:45 AM EST Hem/Onc Treatment Hematology/Oncolog y Treatment, [address] [place] [address] [place], Chair 2 Hem Onc [address] [address] Encounter for antineoplastic chemotherapy*; Cancer, metastatic to [...] 07/18/2008 06/01/2019 Overview (07/31/2009): thyroglobulin antibody >3000 [id number]-300-X[facility]LNIOH[facility] 08/19/200608/10 Overview (08/25/2009): Renamed Per Clinical Trials Billing Project. Pt is a participant in the [employer] (Consortium of Rheumatology Researchers of [place]) national data collection study. For further information please call Dr Temo Castaneda or Kim Ríos, RN, CCRC at [phone] [facility] RESEARCH OTHER*[id number] 08/19/2006 11/06/2009 Overview (08/25/2009): Renamed Per Clinical Trials Billing Project. Pt is a participant in the [facility] (Consortium of Rheumatology Researchers of [place]) national data collection study. For further information please call Dr Temo Castaneda or Kim Ríos, RN, CCRC at [phone] Arthritis, rheumatoid 07/01/20062016 Abnormal blood chemistry 05/02/2006 [...] Description 04/26/2024 7:45 AM EST Imaging Radiology [address] [place] [address] 04/29/2024 10:00 AM EST Laboratory Laboratory [facility] [address] [place] [phone] [place], Lab Scenery [address] [place] [address] 04/29/2024 10:30 AM EST Office Visit Hematology/Oncology [facility] [address] [place] [phone] Monica Ward MD [address] [place] [address] [place] [phone] 04/29/2024 11:00 AM EST Hem/Onc Treatment Hematology/Oncology Treatment, [place] [address] [place], [place] [phone] [place], Chair 2 Hem Onc [facility] [address] [place] [address] 04/29/2024 3:30 PM EST Imaging Radiology [facility] 1st [facility] [address] [place] [address] 07/14/2024 3:00 PM EST Office Visit Pulmonary Medicine, [facility] [address] [place] [address] Eloy Pond MD [address] [place] [facility] [place] [address] 10/15/2024 8:40 AM EDT Office Visit Rheumatology [address] [place] [phone] Samy Russo MD [facility] [place] [address] Health Maintenance Due Date Last Done Comments [...] this encounter Medical Devices Implanted Type Area Survey Crew Chief Device Identifier Shelf Expiration Date Model / Serial / Lot Port Implant W8f Poly Cath - [id number] Implanted:Qty : 1 on 12/31/2023 by Sin Burroughs MD at OR [facility] Right: Chest CR BARD : PERIPHERAL VASCULAR [id number] 10/09/2024 [id number] / / [id number] documented as of this encounter Visit Diagnoses [...] mL documented in this encounter Care Teams Votator Machine Operator Relationship Specialty Start Date End Date Edel Clay MD [address] [place] [address] [place] [address] PCP - General Family Medicine 03/03/17 documented as of this encounter
--- OUTSIDE RECORDS SUMMARY | 2024-06-12 02:22 | External Medical Summary | Summary of Care ---
Author Name Unknown Organization [facility] Address [address] [place] [address] Phone [phone] Care Team Providers Care Photo Engraver Name Role Phone Edel Clay MD Primary Care Provide r Reason for Referral * Precert (Within 24 hrs (call dept; emergent)) - Pending Review Specialty Diagnoses / Procedures Referred By Contac t Referred To Contact Radiology Diagnoses Small cell lung cancer, right (HCC) Procedures MRI BRAIN W WO CONTRAST Monica [facility] [address] [facility] [address] Phone: tel: fax: Referral ID Status Reason Start Date Expiration Date V isits Requested Visits Authorized [id number] Pending Review 04/19/2024 999 [id number] * Precert (Within 24 hrs (call dept; emergent)) - Pending Review Specialty Diagnoses / Procedures Referred By Contac t Referred To Contact Radiology Diagnoses Small cell lung cancer, right (HCC) Procedures PET CT SKULL BASE TO MID-THIGH FDG Monica [facility] [address] [facility] [address] Phone: tel: fax: Referral ID Status Reason Start Date Expiration Date V isits Requested Visits Authorized [id number] Pending Review 04/28/2024 999 999 Reason for Visit * Reason Comments Chemotherapy Chemo/recheck Follow Up Encounter Details Date Type Department Care Team (Late st Contact Info) Description 04/05/2024 8:30 AM EST Office Visit Hematology/Oncology [facility] [address] [facility] [place] [address] Monica Ward MD [address] [place] [address] [place] [address] Small cell lung [...] as of this encounter (statuses as of 04/13/2024) Medications OMEGA-3 FATTY ACIDS 1000 MG PO [...] MOUTH ONE TIME PER WEEK 78 Tablet 024 Active Folic Acid 1 MG Oral [...] as of this encounter (statuses as of 04/13/2024) Active Problems Problem Noted Date Diagnosed Date [...] as of this encounter (statuses as of 04/13/2024) Resolved Problems Problem Noted Date Diagnosed Date [...] 07/18/2008 06/01/2019 Overview (07/31/2009): thyroglobulin antibody >3000 [id number] 08/19/200608/10 Overview (08/25/2009): Renamed Per Clinical Trials Billing Project. Pt is a participant in the [employer] (Consortium of Rheumatology Researchers of [place]) national data collection study. For further information please call Dr Temo Castaneda or Kim Ríos, RN, CCRC at [phone] [facility] RESEARCH OTHER*[id number] 08/19/2006 11/06/2009 Overview (08/25/2009): Renamed Per Clinical Trials Billing Project. Pt is a participant in the [employer] (Consortium of Rheumatology Researchers of [place]) national data collection study. 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 Multiple liver lesions, concerning for metastases, fuels sales representative lesion in the posterior right hepatic [...] other meds) 90 Tablet 3 Magic Swizzle (Wrqlcbeyd-Bhngzacg-Tmqtnr) oral solution Swish and spit 15 mL [...] Judgment normal. 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 [address] [facility] [place] [address] 04/29/2024 10:00 AM EST Laboratory Laboratory [facility] [place] [address] [place] [phone] [place], Lab Scenery [address] [facility] [place] [address] 04/29/2024 10:30 AM EST Office Visit Hematology/Oncology [facility] [place] [address] [place] [phone] Monica Ward MD [address] [facility] [address] 04/29/2024 11:00 AM EST Hem/Onc Treatment Hematology/Oncology Treatment, [place] [address] [place] [phone] [place], Chair 2 Hem Onc Scenery [address] [place] [address] 07/14/2024 3:00 PM EST Office Visit Pulmonary Medicine, [facility] [address] [facility] [place] [address] Eloy Pond MD [address] [place] [address] 10/15/2024 8:40 AM EDT Office Visit Rheumatology [address] [place] [address] Samy Russo MD [address] [place] [address] [place], [place] [address] Scheduled Orders Name Type Priority Associated Diagnoses Orde r Schedule PET CT SKULL BASE TO MID-THIGH FDG Medical Imaging STAT Small cell lung cancer, right (HCC) Expected: 04/28/2024, Expires: 05/05/2025 MRI BRAIN W WO CONTRAST Medical Imaging [...] this encounter Medical Devices Implanted Type Area Oracle Specialist Device Identifier Shelf Expiration Date Model / Serial / Lot Port Implant W8f Poly Cath - [id number] Implanted:Qty : 1 on 12/31/2023 by Sin Burroughs MD at [facility] Right: Chest CR BARD : PERIPHERAL VASCULAR [id number] 10/09/2024 [id number] / / [id number] documented as of this encounter Visit Diagnoses Diagnosis Small cell lung cancer, right (HCC)- Primary Anxiety Anxiety state, unspecified Claustrophobia Other isolated or specific phobias Encounter for antineoplastic chemotherapy Cancer, metastatic to bone (HCC) Secondary malignant neoplasm of bone and bone marrow Metastatic adenocarcinoma to liver (HCC) Secondary malignant neoplasm of liver documented in this encounter Care Teams Photo Engraver Relationship Specialty Start Date End Date Edel Clay MD [address] [place] [address] [place] [phone] PCP - General Family Medicine 03/03/17 documented as of this encounter
--- OUTSIDE RECORDS SUMMARY | 2024-06-12 02:22 | External Medical Summary | Summary of Care ---
Author Name Unknown Organization [facility] Address [address] [place] [address] Phone [phone] Care Team Providers Care Back Tender Fourdrinier Name Role Phone Edle Clay MD Primary Care Provide r Reason for Visit * Reason Comments Medication Administration Fulphila * Episode Based Medications (Routine) - Authorized Specialty Diagnoses / Procedures Referred By Contac t Referred To Contact Diagnoses Encounter for antineoplastic chemotherapy Cancer, metastatic to bone (HCC) Metastatic adenocarcinoma to liver (HCC) Small cell lung cancer, right (HCC) Procedures [place] CARBOPLATIN INJECTION [place] FOSAPREPITANT INJECTION [place] ETOPOSIDE 10 MG INJ AZ INJ, ATEZOLIZUMAB,10 MG [place] INJECTION, FULMonica Fontanez MD [address] [place], [place] [address] [address] Phone: tel: fax: Hematology/Oncology Treatment, [address] [place] [address] Phone: tel: fax: Referral ID Status Reason Start Date Expiration Date V isits Requested Visits Authorized [id number] Authorized 12/17/2023 06/13/[phone] Encounter Details Date Type Department Care Team (Latest Contact Info) Description 04/09/2024 9:00 AM EST Immunization/ Injection Hematology/Oncology Treatment, [address] [address] [place], Chair 4 Hem Onc [address] [address] Encounter for antineoplastic chemotherapy*; Cancer, [...] as of this encounter (statuses as of 04/09/2024) Medications OMEGA-3 FATTY ACIDS 1000 MG PO [...] as of this encounter (statuses as of 04/09/2024) Active Problems Problem Noted Date Diagnosed Date [...] as of this encounter (statuses as of 04/09/2024) Resolved Problems Problem Noted Date Diagnosed Date [...] 07/18/2008 06/01/2019 Overview (07/31/2009): thyroglobulin antibody >3000 [id number] 08/19/200608/10 Overview (08/25/2009): Renamed Per Clinical Trials Billing Project. Pt is a participant in the [facility] (Consortium of Rheumatology Researchers of [place]) national data collection study. For further information please call Dr Temo Castaneda or Kim Ríos, RN, CCRC at [phone] [facility] RESEARCH OTHER*[id number] 08/19/2006 11/06/2009 Overview (08/25/2009): Renamed Per Clinical Trials Billing Project. Pt is a participant in the [facility] (Consortium of Rheumatology Researchers of [facility]) national data collection study. For further information please call Dr Temo Castaneda or Kim Ríos, RN, CCRC at [phone] Arthritis, rheumatoid 07/01/20062016 Abnormal blood chemistry 05/02/2006 [...] as of this encounter (statuses as of 04/09/2024) Immunizations Name Administration Dates Next Due COVID-19 [...] Date Smoking Tobacco: Every Day Cigarettes 1 28.3 Started: 12/04/1995 Smokeless Tobacco: Never Alcohol Use [...] as of this encounter Nursing Notes * Diya Ness LPN - 04/09/2024 9:05 AM EST 0900: Pt arrived for Fulphila injection. Administered in [place]. Pt tolerated well. To return in 3 weeks. Discharged in stable condition. documented in this encounter Plan of Treatment Upcoming Encounters Date Type Department Care Team (Late st Contact Info) Description 04/21/2024 1:00 PM EST Hospital Encounter Radiology, [facility] [address] [facility] [place] [address] 04/26/2024 7:45 AM EST Imaging Radiology [address] [facility] [place] [address] 04/29/2024 10:00 AM EST Laboratory Laboratory [facility] [address] [place] [phone] [place] Lab [facility] [address] [place] [address] 04/29/2024 10:30 AM EST Office Visit Hematology/Oncology [facility] [place] [address] [place] [phone] Monica Ward MD [address] [facility] [place] [address] 04/29/2024 11:00 AM EST Hem/Onc Treatment Hematology/Oncology Treatment, [place] [address] [place] [address] [place], Chair 2 Hem Onc Scenery [address] [place] [address] 07/14/2024 3:00 PM EST Office Visit Pulmonary Medicine, [facility] [place] [address] Eloy Pond MD [address] [place] [address] 10/15/2024 8:40 AM EDT Office Visit Rheumatology [address] [place] [address] Samy Russo MD [address] [employer] [place] [address] Health Maintenance Due Date Last Done Comments [...] this encounter Medical Devices Implanted Type Area Plane Tableman Device Identifier Shelf Expiration Date Model / Serial / Lot Port Implant W8f Poly Cath - [id number] Implanted:Qty : 1 on 12/31/2023 by Sin Burroughs MD at [facility] Right: Chest CR BARD : PERIPHERAL VASCULAR [id number] 10/09/2024 [id number] / / [id number] documented as of this encounter Visit Diagnoses [...] 6 mg 6 mg, Subcutaneous, ONCE, On Fri04/09/24 at 0930, For 1 doseIndications:Encounter for antineoplastic chemotherapy,Cancer, metastatic to bone (HCC),Metastatic adenocarcinoma to liver (HCC),Small cell lung cancer, right (HCC) Given 04/09/2024 9:00 AM EST 6 mg Arm Left Upper documented in this encounter Care Teams Back Tender Fourdrinier Relationship Specialty Start Date End Date Edel Clay MD [address] [place] [address] [place] [phone] PCP - General Family Medicine 03/03/17 documented as of this encounter
--- OUTSIDE RECORDS SUMMARY | 2024-06-12 02:22 | External Medical Summary | Summary of Care ---
Author Name Unknown Organization [facility] Address [address] [place] [address] Phone [phone] Care Team Providers Care Assistant Center Director Name Role Phone Edel Clay MD Primary Care Provide r Reason for Visit * Reason Comments Chemotherapy C6 D1 Tecentriq, Car lilian and Taxol * Episode Based Medications (Routine) - Authorized Specialty Diagnoses / Procedures Referred By Contac t Referred To Contact Diagnoses Encounter for antineoplastic chemotherapy Cancer, metastatic to bone (HCC) Metastatic adenocarcinoma to liver (HCC) Small cell lung cancer, right (HCC) Procedures [place] CARBOPLATIN INJECTION TX FOSAPREPITANT INJECTION TX ETOPOSIDE 10 MG INJ TX INJ, ATEZOLIZUMAB,10 MG TX INJECTION, Monica Anderson MD [address] [place] [address] [place] [address] Phone: tel: fax: Hematology/Oncology Treatment, [address] [place] [address] Phone: tel: fax: Referral ID Status Reason Start Date Expiration Date V isits Requested Visits Authorized [id number] Authorized 12/17/2023 06/13/[phone] Encounter Details Date Type Department Care Team (Latest Contact Info) Description 04/05/2024 9:00 AM EST Hem/Onc Treatment Hematology/Oncolog y Treatment, [address] [place] [address] [place], Chair 2 Hem Onc [address] [id number] Encounter for antineoplastic chemotherapy*; Cancer, metastatic to [...] as of this encounter (statuses as of 04/18/2024) Medications OMEGA-3 FATTY ACIDS 1000 MG PO [...] as of this encounter (statuses as of 04/18/2024) Active Problems Problem Noted Date Diagnosed Date [...] as of this encounter (statuses as of 04/18/2024) Resolved Problems Problem Noted Date Diagnosed Date [...] 07/18/2008 06/01/2019 Overview (07/31/2009): thyroglobulin antibody >3000 [id number] 08/19/200608/10 Overview (08/25/2009): Renamed Per Clinical Trials Billing Project. Pt is a participant in the [facility] (Consortium of Rheumatology Researchers of [place]) national data collection study. For further information please call Dr Temo Castaneda or Kim Ríos, RN, CCRC at [phone] [facility] RESEARCH OTHER*[id number] 08/19/2006 11/06/2009 Overview (08/25/2009): Renamed Per Clinical Trials Billing Project. Pt is a participant in the [facility] (Consortium of Rheumatology Researchers of [facility]) national data collection study. For further information please call Dr Temo Castaneda or Kim Ríos, RN, CCRC at [phone] Arthritis, rheumatoid 07/01/20062016 Abnormal blood chemistry 05/02/2006 [...] as of this encounter (statuses as of 04/18/2024) Immunizations Name Administration Dates Next Due COVID-19 [...] Sign Reading Time Taken Comments Blood Pressure 130/79 04/05/2024 9:36 AM EST Pulse 88 04/05/2024 9:36 AM EST Temperature 36.8 C (98.2 F) 04/05/2024 9:36 AM ES T Respiratory Rate 16 04/05/2024 9:36 AM EST Oxygen Saturation 94% 04/05/2024 9:36 AM EST Inhaled Oxygen Concentration - - Weight 87.1 kg (192 lb) 04/05/2024 9:36 AM EST Height - - Body Mass Index 33.81 01/15/2024 3:20 PM EDT documented in this encounter Nursing Notes * Francine Lewis RN - 04/05/2024 2:54 PM EST Patient tolerated treatment without issue. VAD with brisk blood return and flushed [...] stable condition. * Francine Lewis RN - 04/05/2024 2:42 PM EST Chair 5 Patient here for treatment after appointment with Dr. Rosado Patient offered no acute complaints. Port accessed with brisk blood return. Chemotherapy/Immunotherapy agents: Tesentriq, CARBOPLATIN, and ETOPOSIDE Consent for chemotherapy drug treatment complete, dated, and signed? yes, date - 12/12/23 Treatment lab parameters met? Yes Has treatment weight changed > than 10%? No Treatment preauthorized? Yes VITALS Filed Vitals: 04/05/24 0936 BP: 130/79 Pulse: 88 Resp: 16 Temp: 36.8 C (98.2 F) TempSrc: Tympanic SpO2: 94% Weight: 87.1 kg (192 lb) Urine protein: N/A Patient education completed for [...] Description 04/26/2024 7:45 AM EST Imaging Radiology [address], [address] [place] [address] 04/29/2024 10:00 AM EST Laboratory Laboratory [facility] [place] [address] [place] [address] [place], Lab [facility] [address] [facility] [place] [address] 04/29/2024 10:30 AM EST Office Visit Hematology/Oncology [facility] [place] [address] [place] [address] Monica Ward MD [address] [place] [address] [place] [phone] 04/29/2024 11:00 AM EST Hem/Onc Treatment Hematology/Oncology Treatment, [place] [address] [place] [phone] [place], Chair 2 Hem Onc Scenery [address] [place] [address] 04/29/2024 3:30 PM EST Imaging Radiology [facility] 1st Floor, [place] 132 [facility] [place] [address] 07/14/2024 3:00 PM EST Office Visit Pulmonary Medicine, [facility] [address] [facility] [place] [address] Eloy Pond MD [address] [facility] [place] [address] 10/15/2024 8:40 AM EDT Office Visit Rheumatology [address] [place] [phone] Samy Russo MD [address] [facility] [place], [place] [address] Health Maintenance Due Date Last Done Comments [...] this encounter Medical Devices Implanted Type Area Electronic Prepress Technician Device Identifier Shelf Expiration Date Model / Serial / Lot Port Implant W8f Poly Cath - [id number] Implanted:Qty : 1 on 12/31/2023 by Sin Burroughs MD at [facility] Right: Chest CR BARD : PERIPHERAL VASCULAR [id number] 10/09/2024 [id number] / / [id number] documented as of this encounter Visit Diagnoses [...] mg, IV Piggyback, ONCE, 1 dose, On Fri04/05/24 at 1145, Administer over 30 Minutes, Administer first infusion over 60 minutes and if tolerated, subsequent doses may be infused over 30 minutes.Indications:Encoun ter for antineoplastic chemotherapy,Cancer, metastatic to bone (HCC),Metastatic adenocarcinoma to liver (HCC),Small cell lung cancer, right (HCC) Start Infusion 04/05/2024 11:01 AM EST 1,200 mg 550 mL/hr CARBOplatin (Paraplatin) 527 mg in D5W 250 mL infusion 527 mg (Target AUC = 5), IV Piggyback, at 510 mL/hr Administer over 30 Minutes, PROTECT FROM LIGHT (Max Creatinine Clearance at 125 ml/min for calculating AUC dose), ONCE, 1 dose, On Fri04/05/24 at 1245Indications:Encounter for antineoplastic chemotherapy,Cancer, metastatic to bone (HCC),Metastatic adenocarcinoma to liver (HCC),Small cell lung cancer, right (HCC) Start Infusion 04/05/2024 11:40 AM EST 527 mg 510 mL/hr etoposide (VEPESID) 190 mg in NSS 500 mL infusion 190 mg (rounded from 193 mg = 100 mg/m2 1.93 m2 Treatment Plan BSA from Recorded weight), IV Piggyback, ONCE, 1 dose, On Fri04/05/24 at 1315, Administer over 60 Minutes, Recommended concentration is less than or equal to 0.4 mg/mL. If concentration is greater than 0.4 mg/mL recommend to administer through 0.22 micron low protein binding filter.Indications:Encount er for antineoplastic chemotherapy,Cancer, metastatic to bone (HCC),Metastatic adenocarcinoma to liver (HCC),Small cell lung cancer, right (HCC) Start Infusion 04/05/2024 12:15 PM EST 190 mg 519.5 mL/hr Fosaprepitant Dimeglumine (Emend) 150 mg, ondansetron (Zofran) 16 mg, dexamethasone sodium phosphate 12 mg in NSS 250 mL Infusion 150 mg, IV Piggyback, ONCE, 1 dose, On Fri04/05/24 at 1115, Administer over 30 Minutes, Infuse over 30 minutes. Give 30 minutes prior to chemotherapy.Indications:E ncounter for antineoplastic chemotherapy,Cancer, metastatic to bone (HCC),Metastatic adenocarcinoma to liver (HCC),Small cell lung cancer, right (HCC) Start Infusion 04/05/2024 10:20 AM EST 150 mg 538.4 mL/hr hEParin 100 UNIT/ML Lock Flush inj 500 Units 500 Units (5 mL), IV Lock, PRN Other, IV Flush, Starting on Fri04/05/24 at 1008, Until Fri04/05/24 at 1859, For 24 hours, Do not flush if lock, PICC, or central line not in place; IV infusing or unable to flush.Indications:Encounte r for antineoplastic chemotherapy,Cancer, metastatic to bone (HCC),Metastatic adenocarcinoma to liver (HCC),Small cell lung cancer, right (HCC) Given 04/05/2024 1:22 PM EST 500 Units NSS infusion Intravenous, at 50 mL/hr, PRN, Starting on Fri04/05/24 at 1115, Until Fri04/05/24 at 1859, Maintenance lineIndications:Encounter for antineoplastic chemotherapy,Cancer, metastatic to bone (HCC),Metastatic adenocarcinoma to liver (HCC),Small cell lung cancer, right (HCC) Start Infusion 04/05/2024 10:14 AM EST 50 mL/hr sodium chloride 0.9 % flush central line 10 mL 10 mL, IV Push, PRN Other, IV Flush, Starting on Fri04/05/24 at 1008, Until Fri04/05/24 at 1859, For 24 hours, Do not flush if lock, PICC, or central line not in place; IV infusing or unable to flush.Indications:Encounte r for antineoplastic chemotherapy,Cancer, metastatic to bone (HCC),Metastatic adenocarcinoma to liver (HCC),Small cell lung cancer, right (HCC) Given 04/05/2024 1:22 PM EST 10 mL documented in this encounter Care Teams Assistant Center Director Relationship Specialty Start Date End Date Edel Clay MD [address] [place] [address] [place] [address] PCP - General Family Medicine 03/03/17 documented as of this encounter
--- OUTSIDE RECORDS SUMMARY | 2024-06-12 02:22 | External Medical Summary | Summary of Care ---
Author Name Unknown Organization [facility] Address [address] [place] [address] Phone [phone] Care Team Providers Care Client Support Administrator Name Role Phone Edel Clay MD Primary Care Provide r Reason for Visit * Reason Comments Chemotherapy Day 3, cycle 6 etopo side * Episode Based Medications (Routine) - Authorized Specialty Diagnoses / Procedures Referred By Contac t Referred To Contact Diagnoses Encounter for antineoplastic chemotherapy Cancer, metastatic to bone (HCC) Metastatic adenocarcinoma to liver (HCC) Small cell lung cancer, right (HCC) Procedures MT CARBOPLATIN INJECTION MT FOSAPREPITANT INJECTION MT ETOPOSIDE 10 MG INJ MT INJ, ATEZOLIZUMAB,10 MG MT INJECTION, Monica Anderson MD [address] [place] [address] [place] [address] Phone: tel: fax: Hematology/Oncology Treatment, [address] [place] [address] Phone: tel: fax: Referral ID Status Reason Start Date Expiration Date V isits Requested Visits Authorized [id number] Authorized 12/17/2023 06/13/2024 [id number] Encounter Details Date Type Department Care Team (Latest Contact Info) Description 04/07/2024 8:45 AM EST Hem/Onc Treatment Hematology/Oncolog y Treatment, [address] [place] [address] [place], Chair 2 Hem Onc [address] [address] Encounter for antineoplastic chemotherapy*; Cancer, metastatic to [...] as of this encounter (statuses as of 04/07/2024) Medications OMEGA-3 FATTY ACIDS 1000 MG PO [...] as of this encounter (statuses as of 04/07/2024) Active Problems Problem Noted Date Diagnosed Date [...] as of this encounter (statuses as of 04/07/2024) Resolved Problems Problem Noted Date Diagnosed Date [...] 07/18/2008 06/01/2019 Overview (07/31/2009): thyroglobulin antibody >3000 [id number] 08/19/200608/10 Overview (08/25/2009): Renamed Per Clinical Trials Billing Project. Pt is a participant in the [employer] (Consortium of Rheumatology Researchers of [place]) national data collection study. For further information please call Dr Temo Castaneda or Kim Ríos, RN, CCRC at [phone] [facility] RESEARCH OTHER*[id number] 08/19/2006 11/06/2009 Overview (08/25/2009): Renamed Per Clinical Trials Billing Project. Pt is a participant in the [facility] (Consortium of Rheumatology Researchers of [facility]) national data collection study. For further information please call Dr Temo Castaneda or Kim Ríos, RN, CCRC at [phone] Arthritis, rheumatoid 07/01/20062016 Abnormal blood chemistry 05/02/2006 [...] as of this encounter (statuses as of 04/07/2024) Immunizations Name Administration Dates Next Due COVID-19 [...] Care Team (Late st Contact Info) Description 04/09/2024 9:00 AM EST Immunization/Injecti on Hematology/Oncology Treatment, [place] [address] [place] [address] [place], Chair 4 Hem Onc Scenery [address] [place] [address] 04/21/2024 1:00 PM EST Hospital Encounter Radiology, [facility] [place] [address] 04/26/2024 7:45 AM EST Imaging Radiology [address] [facility] [place] [address] 04/29/2024 10:00 AM EST Laboratory Laboratory [facility] [place] [address] [place] [phone] Park, Lab Scenery [address] [place] [address] 04/29/2024 10:30 AM EST Office Visit Hematology/Oncology [facility] [place] [address] [place] [phone] Monica Ward MD 400 [facility] [place] [address] 04/29/2024 11:00 AM EST Hem/Onc Treatment Hematology/Oncology Treatment, [place] [address] [place] [phone] [place], Chair 2 Hem Onc Scenery [address] [place] [address] 07/14/2024 3:00 PM EST Office Visit Pulmonary Medicine, [facility] 132 [facility] [place] [address] Eloy Pond MD [address] [facility] [address] 10/15/2024 8:40 AM EDT Office Visit Rheumatology [address] [place] [phone] Samy Russo MD [address] [facility] [place] [address] Health Maintenance Due Date Last Done Comments [...] this encounter Medical Devices Implanted Type Area Flaking Roll Operator Device Identifier Shelf Expiration Date Model / Serial / Lot Port Implant W8f Poly Cath - [id number] Implanted:Qty : 1 on 12/31/2023 by Sin Burroughs MD at OR [facility] Right: Chest CR BARD : PERIPHERAL VASCULAR [id number] 10/09/2024 [id number] / / [id number] documented as of this encounter Visit Diagnoses [...] ONCE PRN Other, Hypersensitivity Reaction, Starting on Fri04/07/24 at 0852, Until Fri04/08/24 at 0851, For 24 hoursIndications:Encounter for antineoplastic chemotherapy,Cancer, metastatic to bone (HCC),Metastatic adenocarcinoma to liver (HCC),Small cell lung cancer, right (HCC) EPINEPHrine 1 MG/ML inj 0.3 mg 0.3 mg, Intramuscular, ONCE PRN Other, Hypersensitivity Reaction or Anaphylaxis, Starting on Fri04/07/24 at 0852, Until Fri04/08/24 at 0851, For 24 hoursIndications:Encounter for antineoplastic chemotherapy,Cancer, metastatic to bone (HCC),Metastatic adenocarcinoma to liver (HCC),Small cell lung cancer, right (HCC) hEParin 100 UNIT/ML Lock Flush inj 500 Units 500 Units (5 mL), IV Lock, PRN Other, IV Flush, Starting on Fri04/07/24 at 0852, Until Fri04/08/24 at 0851, For 24 hours, Do not flush if lock, PICC, or central line not in place; IV infusing or unable to flush.Indications:Encounter for antineoplastic chemotherapy,Cancer, metastatic to bone (HCC),Metastatic adenocarcinoma to liver (HCC),Small cell lung cancer, right (HCC) Given 04/07/2024 10:39 AM EST 500 Units Hydrocortisone Sod Suc (PF) (Solu-Cortef) inj 100 mg 100 mg, IV Push, ONCE PRN Other, Hypersensitivity Reaction, Starting on Fri04/07/24 at 0852, Until Fri04/08/24 at 0851, For 24 hoursIndications:Encounter for antineoplastic chemotherapy,Cancer, metastatic to bone (HCC),Metastatic adenocarcinoma to liver (HCC),Small cell lung cancer, right (HCC) LORAzepam (Ativan) tab 0.5 mg 0.5 mg, Oral, ONCE PRN Anxiety, Nausea, Starting on Fri04/07/24 at 1000, Until DiscontinuedIndications:Enco unter for antineoplastic chemotherapy,Cancer, metastatic to bone (HCC),Metastatic adenocarcinoma to liver (HCC),Small cell lung cancer, right (HCC) NSS infusion Intravenous, at 50 mL/hr, PRN, Starting on Fri04/07/24 at 1000, Until Discontinued, Maintenance lineIndications:Encounter for antineoplastic chemotherapy,Cancer, metastatic to bone (HCC),Metastatic adenocarcinoma to liver (HCC),Small cell lung cancer, right (HCC) Start Infusion 04/07/2024 9:00 AM EST 50 mL/hr oxygen GAS Inhalation, OXYGEN, First dose on Fri04/07/24 at 0930, Until Discontinued, Device/Managed by: Low Flow Device, [...] Flush, Starting on Fri04/07/24 at 0852, Until Fri04/08/24 at 0851, For 24 hours, Do not flush if lock, PICC, or central line not in place; IV infusing or unable to flush.Indications:Encounter for antineoplastic chemotherapy,Cancer, metastatic to bone (HCC),Metastatic adenocarcinoma to liver (HCC),Small cell lung cancer, right (HCC) Given 04/07/2024 10:39 AM EST 10 mL Inactive Administered Medications - [...] administer through 0.22 micron low protein binding filter.Indications:Encounte r for antineoplastic chemotherapy,Cancer, metastatic to bone (HCC),Metastatic adenocarcinoma to liver (HCC),Small cell lung cancer, right (HCC) Start Infusion 04/07/2024 9:34 AM EST 190 mg 519.5 mL/hr ondansetron (Zofran) tab 8 mg 8 mg, Oral, ONCE, On Fri04/07/24 at 0915, For 1 dose, Give 30 minutes prior to chemotherapy.Indications:En counter for antineoplastic chemotherapy,Cancer, metastatic to bone (HCC),Metastatic adenocarcinoma to liver (HCC),Small cell lung cancer, right (HCC) Given 04/07/2024 9:02 AM EST 8 mg documented in this encounter Care Teams Client Support Administrator Relationship Specialty Start Date End Date Edel Clay MD [address] [place] [address] [place] [address] PCP - General Family Medicine 03/03/17 documented as of this encounter
--- OUTSIDE RECORDS SUMMARY | 2024-06-12 02:22 | External Medical Summary | Summary of Care ---
Author Name Unknown Organization [facility] Address [address] [place] [address] Phone [phone] Care Team Providers Care Spinner Continuous Name Role Phone Edel Clay MD Primary [...] INJ IN INJ, ATEZOLIZUMAB,10 MG IN INJECTION, FULMonica Fontanez MD [address] [place], [place] [address] [address] Phone: tel: fax: Hematology/Oncology Treatment, [address] [place] [address] Phone: tel: fax: Referral ID Status Reason Start Date Expiration Date V isits Requested Visits Authorized [id number] Authorized 12/17/2023 06/13/[phone] Encounter Details Date Type Department Care Team (Latest Contact Info) Description 04/09/2024 9:00 AM EST Immunization/ Injection Hematology/Oncology Treatment, [address] [address] [place], Chair 4 Hem Onc [address] [address] Encounter for antineoplastic chemotherapy*; Cancer, [...] as of this encounter (statuses as of 04/17/2024) Medications OMEGA-3 FATTY ACIDS 1000 MG PO [...] as of this encounter (statuses as of 04/17/2024) Active Problems Problem Noted Date Diagnosed Date [...] as of this encounter (statuses as of 04/17/2024) Resolved Problems Problem Noted Date Diagnosed Date [...] 07/18/2008 06/01/2019 Overview (07/31/2009): thyroglobulin antibody >3000 [id number] 08/19/200608/10 Overview (08/25/2009): Renamed Per Clinical Trials Billing Project. Pt is a participant in the [facility] (Consortium of Rheumatology Researchers of [place]) national data collection study. For further information please call Dr Temo Castaneda or Kim Ríos, RN, CCRC at [phone] [facility] RESEARCH OTHER*[id number] 08/19/2006 11/06/2009 Overview (08/25/2009): Renamed Per Clinical Trials Billing Project. Pt is a participant in the [facility] (Consortium of Rheumatology Researchers of [facility]) national data collection study. For further information please call Dr Temo Castaneda or Kim Ríos, RN, CCRC at [phone] Arthritis, rheumatoid 07/01/20062016 Abnormal blood chemistry 05/02/2006 [...] as of this encounter (statuses as of 04/17/2024) Immunizations Name Administration Dates Next Due COVID-19 [...] Description 04/26/2024 7:45 AM EST Imaging Radiology [facility] 1st [facility], [place] 132 [facility] [place] [address] 04/29/2024 10:00 AM EST Laboratory Laboratory [facility] [address] [place] [phone] [place], Lab Scenery [address] [facility] [place] [address] 04/29/2024 10:30 AM EST Office Visit Hematology/Oncology [facility] [address] [place] [address] Monica Ward MD [address] [place] [address] [place] [address] 04/29/2024 11:00 AM EST Hem/Onc Treatment Hematology/Oncology Treatment, [place] [address] [place] [phone] [place], Chair 2 Hem Onc Scenery [address] [place] [address] 04/29/2024 3:30 PM EST Imaging Radiology [facility] 1st [facility] [address] [facility] [place] [address] 07/14/2024 3:00 PM EST Office Visit Pulmonary Medicine, [facility] 132 [facility] [place] [address] Eloy Pond MD [address] [facility] [place] [address] 10/15/2024 8:40 AM EDT Office Visit Rheumatology [address] [place] [phone] Samy Russo MD [address] [facility] [place] [address] Health Maintenance Due Date Last Done Comments [...] this encounter Medical Devices Implanted Type Area Security Consultant Device Identifier Shelf Expiration Date Model / Serial / Lot Port Implant W8f Poly Cath - [id number] Implanted:Qty : 1 on 12/31/2023 by Sin Burroughs MD at OR [facility] Right: Chest CR BARD : PERIPHERAL VASCULAR [id number] 10/09/2024 [id number] / / [id number] documented as of this encounter Visit Diagnoses [...] Upper documented in this encounter Care Teams Spinner Continuous Relationship Specialty Start Date End Date Edel Clay MD [address] [place] [address] [place] [address] PCP - General Family Medicine 03/03/17 documented as of this encounter
--- OUTSIDE RECORDS SUMMARY | 2024-06-12 02:23 | External Medical Summary ---
Author Name Unknown Address Unknown Organization K01:[facility] - [address] [place] [address] Laboratory Report Ordering Provider Test Date Status HEATHERSAGARMADIEMARTIN 04/05/2024 08:06:53 Final Observation Date Value Abnormality Reference (Units ) Status T4, Free 04/05/2024 08:06:53 1.3 0.9-1.7 (n g/dL) Final Performing Location [facility] - [address] [place] [address]
--- OUTSIDE RECORDS SUMMARY | 2024-06-12 02:23 | External Medical Summary | Summary of Care ---
Author Name Unknown Organization [facility] Address [address] [place] [address] Phone [phone] Care Team Providers Care Parts Picker Name Role Phone Edel Clay MD Primary [...] Small cell lung cancer, right (HCC) Procedures SD CARBOPLATIN INJECTION SD FOSAPREPITANT INJECTION SD ETOPOSIDE 10 MG INJ SD INJ, ATEZOLIZUMAB,10 MG SD INJECTION, Monica Anderson MD [address] [place] [address] [place] [address] Phone: tel: fax: Hematology/Oncology Treatment, [address] [place] [address] Phone: tel: fax: Referral ID Status Reason Start Date Expiration Date V isits Requested Visits Authorized [id number] Authorized 12/17/2023 06/13/[phone] Encounter Details Date Type Department Care Team (Latest Contact Info) Description 04/05/2024 9:00 AM EST Hem/Onc Treatment Hematology/Oncolog y Treatment, [address] [place] [address] [place], Chair 2 Hem Onc [address] [phone] Encounter for antineoplastic chemotherapy*; Cancer, metastatic to [...] as of this encounter (statuses as of 04/05/2024) Medications OMEGA-3 FATTY ACIDS 1000 MG PO CAPS 0 07/23/19 07 Active Orencia 125 MG/ML Subcutaneous Solution Prefilled Syringe (Abatacept)Indicat ions:Rheumatoid arthritis involving multiple sites with positive rheumatoid factor (HCC) INJECT 125 MG ( ONE SYRINGE ) UNDER THE SKIN ONCE A WEEK 4 mL 11 12/26/19 23 Active Additional Information Patient not taking.Reported on 02/23/2024 Azelastine HCl 137 MCG/SPRAY Nasal SolutionIndication s:Rhinitis, nonallergic SPRAY 2 SPRAYS INTO EACH NOSTRIL IN THE MORNING AND BEFORE BEDTIME 90 mL 3 06/06/19 24 Active Levothyroxine Sodium 100 MCG Oral Tablet (Levoxyl)Indicatio [...] MOUTH EVERY DAY 90 Tablet 1 12/01/19 Active Additional Information Patient not taking.Reported on [...] and 4 of chemo.. 12 Tablet 03/05/20 Active OLANZapine 10 MG Oral Tablet (zyPREXA)Indicatio ns:Encounter for antineoplastic chemotherapy,Cance r, metastatic to bone (HCC),Metastatic adenocarcinoma to liver (HCC),Small cell lung cancer, right (HCC) Take 1 Tablet by mouth at bedtime. On days 1, 2, 3, and 4 of chemo. 8 Tablet 03/05/20 24 Active Hospital, Clinic, or Other Facility [...] as of this encounter (statuses as of 04/05/2024) Active Problems Problem Noted Date Diagnosed Date [...] as of this encounter (statuses as of 04/05/2024) Resolved Problems Problem Noted Date Diagnosed Date [...] 07/18/2008 06/01/2019 Overview (07/31/2009): thyroglobulin antibody >3000 [id number] 08/19/200608/10 Overview (08/25/2009): Renamed Per Clinical Trials Billing Project. Pt is a participant in the [employer] (Consortium of Rheumatology Researchers of [place]) national data collection study. For further information please call Dr Temo Castaneda or Kim Ríos, RN, CCRC at [phone] [facility] RESEARCH OTHER*[id number] 08/19/2006 11/06/2009 Overview (08/25/2009): Renamed Per Clinical Trials Billing Project. Pt is a participant in the [facility] (Consortium of Rheumatology Researchers of [facility]) national data collection study. For further information please call Dr Temo Castaneda or Kim Ríos, RN, CCRC at [phone] Arthritis, rheumatoid 07/01/20062016 Abnormal blood chemistry 05/02/2006 [...] as of this encounter (statuses as of 04/05/2024) Immunizations Name Administration Dates Next Due COVID-19 [...] Care Team (Late st Contact Info) Description 04/06/2024 10:30 AM EST Hem/Onc Treatment Hematology/Oncology Treatment, [address] [phone] [place] Chair 11 Hem Onc [address] [place] [address] 04/07/2024 8:45 AM EST Hem/Onc Treatment Hematology/Oncology Treatment, [address] [address] Chair [place] 2 Hem Onc [address] [place] [address] 04/09/2024 9:00 AM EST Immunization/Injectio n Hematology/Oncology Treatment, [address] [address] [place], Chair 4 Hem Onc [facility] 200 [facility] [place] [address] 04/21/2024 1:00 PM EST Appointment Radiology, [facility] 400 [facility] [place] [address] 04/26/2024 7:45 AM EST Imaging Radiology [facility] 1st [facility] [address] 05/03/2024 8:30 AM EST Office Visit Hematology/Oncology [facility] [place] 200 [facility] [place] [address] Monica Ward MD [address] [facility] [phone] 07/14/2024 3:00 PM EST Office Visit Pulmonary Medicine, [facility] 132 [facility] [place] [address] Eloy Pond MD [address] [facility] [address] 10/15/2024 8:40 AM EDT Office Visit Rheumatology [address] [place] [phone] Samy Russo MD [address] [facility] [place] [address] Health Maintenance Due Date Last Done Comments [...] this encounter Medical Devices Implanted Type Area Manager Transfusion Device Identifier Shelf Expiration Date Model / Serial / Lot Port Implant W8f Poly Cath - [id number] Implanted:Qty : 1 on 12/31/2023 by Sin Burroughs MD at OR [facility] Right: Chest CR BARD : PERIPHERAL VASCULAR [id number] 10/09/2024 [id number] / / [id number] documented as of this encounter Visit Diagnoses [...] ONCE PRN Other, Hypersensitivity Reaction, Starting on Fri04/05/24 at 1008, Until Fri04/06/24 at 1007, For 24 hoursIndications:Encounter for antineoplastic chemotherapy,Cancer, metastatic to bone (HCC),Metastatic adenocarcinoma to liver (HCC),Small cell lung cancer, right (HCC) EPINEPHrine 1 MG/ML inj 0.3 mg 0.3 mg, Intramuscular, ONCE PRN Other, Hypersensitivity Reaction or Anaphylaxis, Starting on Fri04/05/24 at 1008, Until Fri04/06/24 at 1007, For 24 hoursIndications:Encounter for antineoplastic chemotherapy,Cancer, metastatic to bone (HCC),Metastatic adenocarcinoma to liver (HCC),Small cell lung cancer, right (HCC) hEParin 100 UNIT/ML Lock Flush inj 500 Units 500 Units (5 mL), IV Lock, PRN Other, IV Flush, Starting on Fri04/05/24 at 1008, Until Fri04/06/24 at 1007, For 24 hours, Do not flush if lock, PICC, or central line not in place; IV infusing or unable to flush.Indications:Encounter for antineoplastic chemotherapy,Cancer, metastatic to bone (HCC),Metastatic adenocarcinoma to liver (HCC),Small cell lung cancer, right (HCC) Given 04/05/2024 1:22 PM EST 500 Units Hydrocortisone Sod Suc (PF) (Solu-Cortef) inj 100 mg 100 mg, IV Push, ONCE PRN Other, Hypersensitivity Reaction, Starting on Fri04/05/24 at 1008, Until Fri04/06/24 at 1007, For 24 hoursIndications:Encounter for antineoplastic chemotherapy,Cancer, metastatic to bone (HCC),Metastatic adenocarcinoma to liver (HCC),Small cell lung cancer, right (HCC) LORAzepam (Ativan) tab 0.5 mg 0.5 mg, Oral, ONCE PRN Anxiety, Nausea, Starting on Fri04/05/24 at 1115, Until DiscontinuedIndications:Enco unter for antineoplastic chemotherapy,Cancer, metastatic to bone (HCC),Metastatic adenocarcinoma to liver (HCC),Small cell lung cancer, right (HCC) NSS infusion Intravenous, at 50 mL/hr, PRN, Starting on Fri04/05/24 at 1115, Until Discontinued, Maintenance lineIndications:Encounter for antineoplastic chemotherapy,Cancer, metastatic to bone (HCC),Metastatic adenocarcinoma to liver (HCC),Small cell lung cancer, right (HCC) Start Infusion 04/05/2024 10:14 AM EST 50 mL/hr oxygen GAS Inhalation, OXYGEN, First dose on Fri04/05/24 at 1045, Until Discontinued, Device/Managed by: Low Flow Device, [...] Flush, Starting on Fri04/05/24 at 1008, Until Fri04/06/24 at 1007, For 24 hours, Do not flush if lock, PICC, or central line not in place; IV infusing or unable to flush.Indications:Encounter for antineoplastic chemotherapy,Cancer, metastatic to bone (HCC),Metastatic adenocarcinoma to liver (HCC),Small cell lung cancer, right (HCC) Given 04/05/2024 1:22 PM EST 10 mL Inactive Administered Medications [...] 10:20 AM EST 150 mg 538.4 mL/hr documented in this encounter Care Teams Parts Picker Relationship Specialty Start Date End Date Obed, Doriann Torrez, MD [address] [place] [address] [place] [phone] PCP - General Family Medicine 03/03/17 documented as of this encounter
--- OUTSIDE RECORDS SUMMARY | 2024-06-12 02:23 | External Medical Summary ---
Author Name Unknown Address Unknown Organization K09:[facility] [place] [address] Laboratory Report Ordering Provider Test Date Status AKILAH ROMERO 04/05/2024 08:06:53 Final Observation Date Value Abnormality Reference (Units ) Status WBC, Total 04/05/2024 08:06:53 6.75 4.00-10.8 0 (K/uL) Final RBC 04/05/2024 08:06:53 3.26 3.85-5.15 (M/uL) Final Hemoglobin 04/05/2024 08:06:53 11.0 Below low normal 12 .0-15.3 (g/dL) Final HCT 04/05/2024 08:06:53 35.0 Below low normal 36. 0-45.2 (%) Final MCV 04/05/2024 08:06:53 107.4 81.5-97.5 (fL) Final MCH 04/05/2024 08:06:53 33.7 27.0-34.0 (pg) Final MCHC 04/05/2024 08:06:53 31.4 32.0-36.0 (g/dL) Final RDW 04/05/2024 08:06:53 15.9 11.5-15.5 (%) Final Platelets 04/05/2024 08:06:53 307 140-400 (K /uL) Final MPV 04/05/2024 08:06:53 8.7 6.6-11.1 ( fL) Final Performing Location [facility] [place] [address]
--- OUTSIDE RECORDS SUMMARY | 2024-06-12 02:23 | External Medical Summary | Summary of Care ---
Author Name Unknown Organization [facility] Address [address] [place] [address] Phone [phone] Care Team Providers Care Manager Athletics Name Role Phone Edel Clay MD Primary Care Provide r Reason for Visit * Reason Comments Chemotherapy Tecentriq/Carbo/Etop D1C4 * Episode Based Medications (Routine) - Authorized Specialty Diagnoses / Procedures Referred By Contac t Referred To Contact Diagnoses Encounter for antineoplastic chemotherapy Cancer, metastatic to bone (HCC) Metastatic adenocarcinoma to liver (HCC) Small cell lung cancer, right (HCC) Procedures WI CARBOPLATIN INJECTION WI FOSAPREPITANT INJECTION WI ETOPOSIDE 10 MG INJ WI INJ, ATEZOLIZUMAB,10 MG WI INJECTION, Monica Anderson MD [address] [place] [address] [place] [address] Phone: tel: fax: Hematology/Oncology Treatment, [address] [place] [address] Phone: tel: fax: Referral ID Status Reason Start Date Expiration Date V isits Requested Visits Authorized [id number] Authorized 12/17/2023 06/13/[phone] Encounter Details Date Type Department Care Team (Latest Contact Info) Description 02/23/2024 8:30 AM EDT Hem/Onc Treatment Hematology/Oncolog y Treatment, [address] [place] [address] [place], Chair 4 Hem Onc [address] [address] Encounter for antineoplastic chemotherapy*; Cancer, metastatic to [...] as of this encounter (statuses as of 03/24/2024) Medications OMEGA-3 FATTY ACIDS 1000 MG PO CAPS 0 07/23/19 07 Active Orencia 125 MG/ML Subcutaneous Solution Prefilled Syringe (Abatacept)Indicat ions:Rheumatoid arthritis involving multiple sites with positive rheumatoid factor ([facility]) INJECT 125 MG ( ONE SYRINGE ) [...] COVER 1HR PRIOR TO ACCESSING. 30 g 12/19/19 24 Active Hospital, Clinic, or Other Facility [...] as of this encounter (statuses as of 03/24/2024) Active Problems Problem Noted Date Diagnosed Date [...] as of this encounter (statuses as of 03/24/2024) Resolved Problems Problem Noted Date Diagnosed Date [...] 07/18/2008 06/01/2019 Overview (07/31/2009): thyroglobulin antibody >3000 [facility] BRANSONSHARMAINE 08/19/200608/10 Overview (08/25/2009): Renamed Per Clinical Trials Billing Project. Pt is a participant in the [employer]RON[employer] (Consortium of Rheumatology Researchers of [place]) national data collection study. For further information please call Dr Temo Castaneda or Kim Ríos, RN, CCRC at [phone] [employer] RESEARCH OTHER*[id number] 08/19/2006 11/06/2009 Overview (08/25/2009): Renamed Per Clinical Trials Billing Project. Pt is a participant in the CORRONA (Consortium of Rheumatology Researchers of [place]) national data collection study. For further information please call Dr Temo Castaneda or Kim Ríos RN, CCRC at [phone] Arthritis, rheumatoid 07/01/20062016 Abnormal blood chemistry 05/02/2006 [...] as of this encounter (statuses as of 03/24/2024) Immunizations Name Administration Dates Next Due COVID-19 [...] in the Last Year Never true 03/09/2019 Utilities Answer Date Recorded Do you have trouble paying y our heating, water, or electric bill? (Adult - for ages 18 years and over) Not on file 10/28/2023 Is your family able to pay t he heat, water, or electric bill? (Household - for ages 0-17 years) Not on file 10/28/2023 Does your family have access to good internet? (Household - for ages 0-17 years) Not on file 10/28/2023 Social Connections Answer Date Recorded How often do you feel lonely or isolated from those around you? (Adult - for ages 18 years and over) Not on file 10/28/2023 Comments No Sex and Gender Information Value [...] Nursing Notes * Domitila Nettles RN - 02/23/2024 2:51 PM EDT Pt completed treatment without issues. Etoposide infusion took longer than ordered infusion rate due to pump alarming for accumulated air in the line. Goals: Pt will remain free from injury. Possible barriers to meeting goals: ambulation with IV pole Stability of the patient: Moderately stable - low risk of patient condition declining or worsening Summary regarding today's goals: Met: . Pt remained free from injury during treatment today. Discharged in stable condition. * Domitila Nettles RN - 02/23/2024 9:49 AM EDT Chair 10 Chemotherapy/Immunotherapy agents: CARBOPLATIN and ETOPOSIDE Consent for chemotherapy drug treatment [...] Team (Late st Contact Info) Description 04/05/2024 8:10 AM EST Laboratory Laboratory [facility] [place] [address] [place] [phone] [place], Lab [address] [facility] [place] [address] 04/05/2024 8:30 AM EST Office Visit Hematology/Oncology [facility] [place] [address] [place] [address] Monica Ward MD [address] [place] [address] [place] [phone] 04/05/2024 9:00 AM EST Hem/Onc Treatment Hematology/Oncology Treatment, [address] [place], [place] [address] [place], Chair 2 Hem Onc Scenery 200 [facility] [place], [place] [address] 04/06/2024 10:15 AM EST Hem/Onc Treatment Hematology/Oncology Treatment, [address], [place] [address] [place], Chair 5 Hem Onc Scenery 200 [facility] [place], [place] [address] 04/07/2024 8:45 AM EST Hem/Onc Treatment Hematology/Oncology Treatment, [address], [place] [address] [place], Chair 2 Hem Onc Scenery [address] [place] [address] 04/09/2024 9:00 AM EST Immunization/Injecti on Hematology/Oncology Treatment, [address], [place] [address] [place], Chair 4 Hem Onc Scenery [address] [place] [address] 07/14/2024 3:00 PM EST Office Visit Pulmonary Medicine, [facility] [address] [place] [address] Eloy Pond MD [address] [place] [address] 10/15/2024 8:40 AM EDT Office Visit Rheumatology [address] [place] [address] Samy Russo MD [address] [facility], [place] [address] Health Maintenance Due Date Last Done Comments [...] 09/12/2023, 08/11, 08/29/2020, Additional history exists TSH 03/15/2025 03/15/2024, 02/09, 02/02/2024, Additional history exists Lipid Panel 05/19/2025 05/19/2020, [...] this encounter Medical Devices Implanted Type Area Reinforcing Metal Worker Device Identifier Shelf Expiration Date Model / Serial / Lot Port Implant W8f Poly Cath - [id number] Implanted:Qty : 1 on 12/31/2023 by Sin Burroughs MD at OR [facility] Right: Chest CR BARD : PERIPHERAL VASCULAR [id number] 10/09/2024 [id number] / / [id number] documented as of this encounter Visit Diagnoses [...] mg, IV Piggyback, ONCE, 1 dose, On Fri02/23/24 at 1000, Administer over 60 Minutes, Administer first infusion over 60 minutes and if tolerated, subsequent doses may be infused over 30 minutes.Indications:Encoun ter for antineoplastic chemotherapy,Cancer, metastatic to bone (HCC),Metastatic adenocarcinoma to liver (HCC),Small cell lung cancer, right (HCC) Start Infusion 02/23/2024 9:57 AM EDT 1,200 mg 550 mL/hr CARBOplatin (Paraplatin) 527 mg in D5W 250 mL infusion 527 mg (Target AUC = 5), IV Piggyback, at 510 mL/hr Administer over 30 Minutes, PROTECT FROM LIGHT (Max Creatinine Clearance at 125 ml/min for calculating AUC dose), ONCE, 1 dose, On Fri02/23/24 at 1100Indications:Encounter for antineoplastic chemotherapy,Cancer, metastatic to bone (HCC),Metastatic adenocarcinoma to liver (HCC),Small cell lung cancer, right (HCC) Start Infusion 02/23/2024 10:39 AM EDT 527 mg 510 mL/hr etoposide (VEPESID) 190 mg in NSS 500 mL infusion 190 mg (rounded from 193 mg = 100 mg/m2 1.93 m2 Treatment Plan BSA from Recorded weight), IV Piggyback, ONCE, 1 dose, On Fri02/23/24 at 1215, Administer over 60 Minutes, Recommended concentration is less than or equal to 0.4 mg/mL. If concentration is greater than 0.4 mg/mL recommend to administer through 0.22 micron low protein binding filter.Indications:Encount er for antineoplastic chemotherapy,Cancer, metastatic to bone (HCC),Metastatic adenocarcinoma to liver (HCC),Small cell lung cancer, right (HCC) Start Infusion 02/23/2024 11:16 AM EDT 190 mg 519.5 mL/hr Fosaprepitant Dimeglumine (Emend) 150 mg, ondansetron (Zofran) 16 mg, dexamethasone sodium phosphate 12 mg in NSS 250 mL Infusion 150 mg, IV Piggyback, ONCE, 1 dose, On Fri02/23/24 at 1015, Administer over 30 Minutes, Infuse over 30 minutes. Give 30 minutes prior to chemotherapy.Indications:E ncounter for antineoplastic chemotherapy,Cancer, metastatic to bone (HCC),Metastatic adenocarcinoma to liver (HCC),Small cell lung cancer, right (HCC) Start Infusion 02/23/2024 9:17 AM EDT 150 mg 538.4 mL/hr hEParin 100 UNIT/ML Lock Flush inj 500 Units 500 Units (5 mL), IV Lock, PRN Other, IV Flush, Starting on Fri02/23/24 at 0901, Until Fri02/23/24 at 1856, For 24 hours, Do not flush if lock, PICC, or central line not in place; IV infusing or unable to flush.Indications:Encounte r for antineoplastic chemotherapy,Cancer, metastatic to bone (HCC),Metastatic adenocarcinoma to liver (HCC),Small cell lung cancer, right (HCC) Given 02/23/2024 1:15 PM EDT 500 Units NSS infusion Intravenous, at 50 mL/hr, PRN, Starting on Fri02/23/24 at 1015, Until Fri02/23/24 at 1856, Maintenance lineIndications:Encounter for antineoplastic chemotherapy,Cancer, metastatic to bone (HCC),Metastatic adenocarcinoma to liver (HCC),Small cell lung cancer, right (HCC) Start Infusion 02/23/2024 9:02 AM EDT 50 mL/hr sodium chloride 0.9 % flush central line 10 mL 10 mL, IV Push, PRN Other, IV Flush, Starting on Fri02/23/24 at 0901, Until Fri02/23/24 at 1856, For 24 hours, Do not flush if lock, PICC, or central line not in place; IV infusing or unable to flush.Indications:Encounte r for antineoplastic chemotherapy,Cancer, metastatic to bone (HCC),Metastatic adenocarcinoma to liver (HCC),Small cell lung cancer, right (HCC) Given 02/23/2024 1:15 PM EDT 10 mL documented in this encounter Care Teams Manager Athletics Relationship Specialty Start Date End Date Edel Clay MD [address] [place] [address] [place] [address] PCP - General Family Medicine 03/03/17 documented as of this encounter
--- OUTSIDE RECORDS SUMMARY | 2024-06-12 02:23 | External Medical Summary ---
Author Name Unknown Address Unknown Organization K09:[facility] [address] [place] [address] Laboratory Report Ordering Provider Test Date Status AKILAH RMOERO 04/05/2024 08:06:53 Final Observation Date Value Abnormality Reference (Units ) Status BUN 04/05/2024 08:06:53 7 6-20 (mg/dL) Final Creatinine 04/05/2024 08:06:53 0.8 0.5-1.0 (mg/dL) Final Glomerular filtration rate/1.73 sq M.predicted [Volume Rate/Area] in Serum, Plasma or Blood by Creatinine-based formula (CKD-EPI) 04/05/2024 08:06:53 82 >=60 (mL/min) Final eGFR is calculated based on the CKD-EPI 2020 equation. Sodium 04/05/2024 08:06:53 142 135-146 (m mol/L) Final Potassium 04/05/2024 08:06:53 3.6 3.5-5.1 (m mol/L) Final Cl 04/05/2024 08:06:53 105 98-107 (mm ol/L) Final CO2 04/05/2024 08:06:53 25 22-32 (mmo l/L) Final Anion gap 04/05/2024 08:06:53 12 7-15 (mmol /L) Final Glucose 04/05/2024 08:06:53 124 Above high normal 70 -120 (mg/dL) Final Albumin 04/05/2024 08:06:53 4.2 3.8-5.0 (g /dL) Final AST (Aspartate aminotransferase) 04/05/2024 08:06:53 26 10-35 (U/L) Fin al Alk Phos 04/05/2024 08:06:53 114 35-130 (U/ L) Final Bilirubin, Total 04/05/2024 08:06:53 0.2 <=1 .2 (mg/dL) Final Calcium 04/05/2024 08:06:53 9.7 8.4-10.2 ( mg/dL) Final Protein 04/05/2024 08:06:53 7.4 6.0-8.3 (g /dL) Final ALT (Alanine aminotransferase) 04/05/2024 08:06:53 20 10-35 (U/L) Neo mann Performing Location [facility] [address] [place] [address]
--- OUTSIDE RECORDS SUMMARY | 2024-06-12 02:23 | External Medical Summary | Summary of Care ---
Author Name Unknown Organization [facility] Address [address] [place] [address] Phone [phone] Care Team Providers Care Insurance Sales Executive Name Role Phone Edel Clay MD Primary Care Provide r Encounter Details Date Type Department Care Team (Late st Contact Info) Description 04/06/2024 Orders Only Hematology/Oncology Treatment, [place] [address] [place] [address] Monica Ward MD [address] [place] [phone] Allergies Active Allergy Reactions Criticality Noted Date Comments Clindamycin Hives 08/26/2014 Codeine 10/25/2011 "Stupor", drowsy Other Allergy (See Comments) 024 Perfumes, hairspray, candles, etc. Sinus infections, headaches, very sensitive. Penicillins 01/30/2006 Hives ans swelling Sulfa Antibiotics 06/29/2010 Sick to her stomach documented as of this encounter (statuses as of 04/06/2024) Medications OMEGA-3 FATTY ACIDS 1000 MG PO [...] needed for Anxiety. 60 Tablet 04/05/20 Active Hospital, Clinic, or Other Facility Administered [...] as of this encounter (statuses as of 04/06/2024) Active Problems Problem Noted Date Diagnosed Date [...] as of this encounter (statuses as of 04/06/2024) Resolved Problems Problem Noted Date Diagnosed Date [...] 07/18/2008 06/01/2019 Overview (07/31/2009): thyroglobulin antibody >3000 [id number] 08/19/200608/10 Overview (08/25/2009): Renamed Per Clinical Trials Billing Project. Pt is a participant in the [employer] (Consortium of Rheumatology Researchers of [place]) national data collection study. For further information please call Dr Temo Castaneda or Kim Ríos, RN, CCRC at [phone] [facility] RESEARCH OTHER*[id number] 08/19/2006 11/06/2009 Overview (08/25/2009): Renamed Per Clinical Trials Billing Project. Pt is a participant in the [employer]RON[employer] (Consortium of Rheumatology Researchers of [place]) national data collection study. For further information please call Dr Temo Castaneda or Kim Ríos, RN, CCRC at [phone] Arthritis, rheumatoid 07/01/20062016 Abnormal blood chemistry 05/02/2006 [...] as of this encounter (statuses as of 04/06/2024) Immunizations Name Administration Dates Next Due COVID-19 [...] Care Team (Late st Contact Info) Description 04/07/2024 8:45 AM EST Hem/Onc Treatment Hematology/Oncology Treatment, [address] [place] [address] [place], Chair 2 Hem Onc [address] [address] 04/09/2024 9:00 AM EST Immunization/Injecti on Hematology/Oncology Treatment, [address] [place] [phone] [place], Chair 4 Hem Onc Scenery [address] [place] [address] 04/21/2024 1:00 PM EST Hospital Encounter Radiology, [facility] [address] [facility] [address] 04/26/2024 7:45 AM EST Imaging Radiology [facility]st [facility] [address] [facility] [place] [address] 04/29/2024 10:00 AM EST Laboratory Laboratory [facility] [place] [place] [address] [place] [phone] [place], Lab Scen[address] [place] [address] 04/29/2024 10:30 AM EST Office Visit Hematology/Oncology [place] [address] [place] [phone] Monica Ward MD [address] [facility] [place] [address] 04/29/2024 11:00 AM EST Hem/Onc Treatment Hematology/Oncology Treatment, [place] [address] [place] [address] [place], Chair 2 Hem Onc Scenery [address] [place] [address] 07/14/2024 3:00 PM EST Office Visit Pulmonary Medicine, [facility] [address] [facility] [place] [address] Eloy Pond MD [address] [place] [address] 10/15/2024 8:40 AM EDT Office Visit Rheumatology [address] [place] [phone] Samy Russo MD [address] [place] [address] Health Maintenance Due Date Last Done Comments [...] this encounter Medical Devices Implanted Type Area Distributor Publications Device Identifier Shelf Expiration Date Model / Serial / Lot Port Implant W8f Poly Cath - [id number] Implanted:Qty : 1 on 12/31/2023 by Sin Burroughs MD at [facility] Right: Chest CR BARD : PERIPHERAL VASCULAR [id number] 10/09/2024 [id number] / / [id number] documented as of this encounter Care Teams Insurance Sales Executive Relationship Specialty Start Date End Date Edel Clay MD [address] [place] [address] [place] [phone] PCP - General Family Medicine 03/03/17 documented as of this encounter
--- OUTSIDE RECORDS SUMMARY | 2024-06-12 02:23 | External Medical Summary ---
Author Name Unknown Address Unknown Organization K09:[facility] [place] [address] Laboratory Report Ordering Provider Test Date Status AKILAH ROMERO 04/05/2024 08:06:53 Final Observation Date Value Abnormality Reference (Units ) Status SYNC LEUKOCYTES IN BLOOD BY AUTOMATED COUNT 04/05/2024 08:06:53 6.75 4.00-10.80 (K/uL) Final Segs 04/05/2024 08:06:53 49.4 40.0-75.0 (%) Final Lymphs % 04/05/2024 08:06:53 34.4 18.0-42.0 (%) Final Monos 04/05/2024 08:06:53 14.8 Above high normal 1.0-11.0 (%) Final Eosinophils 04/05/2024 08:06:53 0.7 0.0-6.0 (%) Final Basos 04/05/2024 08:06:53 0.7 0.0-2.0 (%) Final Absolute Segs 04/05/2024 08:06:53 3.33 1.80-7.70 (K/uL) Final Lymphs, absolute 04/05/2024 08:06:53 2.32 1.00-4.80 (K/ul) Final Monos, Abs 04/05/2024 08:06:53 1.00 0.00-1.10 (K/uL) Final Eos, Abs 04/05/2024 08:06:53 0.05 0.00-0.70 (K/uL) Final Basos, Abs 04/05/2024 08:06:53 0.05 0.00-0.20 (K/uL) Final Performing Location [facility] [address]
--- OUTSIDE RECORDS SUMMARY | 2024-06-12 02:23 | External Medical Summary | Summary of Care ---
Author Name Unknown Organization [facility] Address [address] [place] [address] Phone [phone] Care Team Providers Care Auto Dismantler Name Role Phone Edel Clay MD Primary Care Provide r Reason for Visit * Reason Onset Date Comments Medication Refill 04/04/2024 Encounter Details Date Type Department Care Team (Late st Contact Info) Description 04/04/2024 Refill Family Medicine [address] [phone] Edel Clay MD [address] [place] [address] [place] [address] Rhinitis, nonallergic Allergies Active Allergy Reactions Criticality Noted Date Comments Clindamycin Hives 08/26/2014 Codeine 10/25/2011 "Stupor", drowsy Other Allergy (See Comments) 024 Perfumes, hairspray, candles, etc. Sinus infections, headaches, very sensitive. Penicillins 01/30/2006 Hives ans swelling Sulfa Antibiotics 06/29/2010 Sick to her stomach documented as of this encounter (statuses as of 04/04/2024) Medications OMEGA-3 FATTY ACIDS 1000 MG PO [...] 4 of chemo. 8 Tablet 03/05/20 Active Hospital, Clinic, or Other Facility Administered [...] as of this encounter (statuses as of 04/04/2024) Active Problems Problem Noted Date Diagnosed Date [...] as of this encounter (statuses as of 04/04/2024) Resolved Problems Problem Noted Date Diagnosed Date [...] 07/18/2008 06/01/2019 Overview (07/31/2009): thyroglobulin antibody >3000 [id number][facility] 08/19/200608/10 Overview (08/25/2009): Renamed Per Clinical Trials Billing Project. Pt is a participant in the [employer]RON[employer] (Consortium of Rheumatology Researchers of [place]) national data collection study. For further information please call Dr Temo Castaneda or Kim Ríos, RN, CCRC at [phone] [facility] RESEARCH OTHER*[id number] 08/19/2006 11/06/2009 Overview (08/25/2009): Renamed Per Clinical Trials Billing Project. Pt is a participant in the [employer]RONA (Consortium of Rheumatology Researchers of [place]) national data collection study. For further information please call Dr Temo Castaneda or Kim Ríos, RN, CCRC at [phone] Arthritis, rheumatoid 07/01/20062016 Abnormal blood chemistry 05/02/2006 [...] as of this encounter (statuses as of 04/04/2024) Immunizations Name Administration Dates Next Due COVID-19 [...] encounter Miscellaneous Notes * Telephone Encounter - Peter Quiroga - 04/04/2024 2:16 PM ESTRefused Prescriptions: Disp Refills Azelastine HCl 137 MCG/SPRAY Nasal Hllsomxv15 mL 3 Refused By: Alcon QUIROGA for Refusal: Duplicate Request documented in this encounter Plan of Treatment Upcoming Encounters Date Type Department Care Team (Late st Contact Info) Description 04/05/2024 8:10 AM EST Laboratory Laboratory [facility] [place] [address] [place] [phone] [place], Lab [place] [address] [address] [place], [place] [address] 04/05/2024 8:30 AM EST Office Visit Hematology/Oncology [facility] [place] [address] [place], [place] [phone] Monica Ward MD [address] [place] [address] [place] [phone] 04/05/2024 9:00 AM EST Hem/Onc Treatment Hematology/Oncology Treatment, [address], [place] [phone] [place], Chair 2 Hem Onc [place] [address] [address] [place], [place] [address] 04/06/2024 10:30 AM EST Hem/Onc Treatment Hematology/Oncology Treatment, [address], [place] [phone] [place], Chair 11 Hem Onc [place] [address] [address] [place], [place] [address] 04/07/2024 8:45 AM EST Hem/Onc Treatment Hematology/Oncology Treatment, [address] [phone] [place], Chair 2 Hem Onc Scenery [address] [place] [address] 04/09/2024 9:00 AM EST Immunization/Injecti on Hematology/Oncology Treatment, [place] [address] [place] [phone] [place], Chair 4 Hem Onc Scenery [address] [place] [address] 07/14/2024 3:00 PM EST Office Visit Pulmonary Medicine, [facility] [address] [facility] [place] [address] Eloy Pond MD [address] [facility] [place] [address] 10/15/2024 8:40 AM EDT Office Visit Rheumatology [address] [place] [phone] Samy Russo MD [address] [employer] [address] Health Maintenance Due Date Last Done Comments [...] this encounter Medical Devices Implanted Type Area Washing Machine Striper Device Identifier Shelf Expiration Date Model / Serial / Lot Port Implant W8f Poly Cath - [id number] Implanted:Qty : 1 on 12/31/2023 by Sin Burroughs MD at OR [facility] Right: Chest CR BARD : PERIPHERAL VASCULAR [id number] 10/09/2024 [id number] / / [id number] documented as of this encounter Visit Diagnoses Diagnosis Rhinitis, nonallergic Chronic rhinitis documented in this encounter Care Teams Auto Dismantler Relationship Specialty Start Date End Date Edel Clay MD [address] [place] [address] [place] [phone] PCP - General Family Medicine 03/03/17 documented as of this encounter
--- OUTSIDE RECORDS SUMMARY | 2024-06-12 02:23 | External Medical Summary | Summary of Care ---
Author Name Unknown Organization [facility] Address [address] [place] [address] Phone [phone] Care Team Providers Care Wood Room Supervisor Name Role Phone Edel Clay MD [...] ATEZOLIZUMAB,10 MG MN INJECTION, Monica Anderson MD [address] [facility] [place] [address] Phone: tel: fax: Hematology/Oncology Treatment, [address] [place] [address] Phone: tel: fax: Referral ID Status Reason Start Date Expiration Date V isits Requested Visits Authorized [id number] Authorized 12/17/2023 06/13/[phone] Encounter Details Date Type Department Care Team (Latest Contact Info) Description 04/06/2024 10:30 AM EST Hem/Onc Treatment Hematology/Oncolog [address], [address] [address] [place], Chair 11 Hem Onc [address] [id number] Encounter for antineoplastic chemotherapy*; Cancer, metastatic to [...] 07/18/2008 06/01/2019 Overview (07/31/2009): thyroglobulin antibody >3000 [id number] 08/19/200608/10 Overview (08/25/2009): Renamed Per Clinical Trials Billing Project. Pt is a participant in the [facility] (Consortium of Rheumatology Researchers of [place]) national data collection study. For further information please call Dr Temo Castaneda or Kim Ríos, RN, CCRC at [phone] [facility] RESEARCH OTHER*[id number] 08/19/2006 11/06/2009 Overview (08/25/2009): Renamed Per Clinical Trials Billing Project. Pt is a participant in the [facility] (Consortium of Rheumatology Researchers of [facility]) national data collection study. For further information please call Dr Temo Castaneda or Kim Ríos, RN, CCRC at [phone] Arthritis, rheumatoid 07/01/20062016 Abnormal blood chemistry 05/02/2006 [...] 8:45 AM EST Hem/Onc Treatment Hematology/Oncology Treatment, [place] [address] [place] [phone] [place], Chair 2 Hem Onc Scenery [address] [place] [address] 04/09/2024 9:00 AM EST Immunization/Injecti on Hematology/Oncology Treatment, [place] [address] [facility], [place] [address] [place], Chair 4 Hem Onc Scenery [address] [place] [address] 04/21/2024 1:00 PM EST Hospital Encounter Radiology, [facility] [address] [place] [address] 04/26/2024 7:45 AM EST Imaging Radiology [facility] 1st [facility] [address] [facility] [place] [address] 04/29/2024 10:00 AM EST Laboratory Laboratory [facility] [address] [place] [phone] [place], Lab Scenery [address] [facility] [place] [address] 04/29/2024 10:30 AM EST Office Visit Hematology/Oncology [facility] [place] [address] [place], [place] [phone] Monica Ward MD [address] [place] [phone] 04/29/2024 11:00 AM EST Hem/Onc Treatment Hematology/Oncology Treatment, [place] [address] [facility], [place] [phone] [place], Chair 2 Hem Onc Scenery [address] [place] [address] 07/14/2024 3:00 PM EST Office Visit Pulmonary Medicine, [facility] 132 [facility] [place] [address] Eloy Pond MD [address] [facility] [place] [address] 10/15/2024 8:40 AM EDT Office Visit Rheumatology [address] [place] [address] Samy Russo MD [address] [facility] [place] [address] Health Maintenance Due Date Last Done Comments [...] this encounter Medical Devices Implanted Type Area Clinical Rehab Liaison Device Identifier Shelf Expiration Date Model / Serial / Lot Port Implant W8f Poly Cath - [id number] Implanted:Qty : 1 on 12/31/2023 by Sin Burroughs MD at [facility] Right: Chest CR BARD : PERIPHERAL VASCULAR [id number] 10/09/2024 [id number] / / [id number] documented as of this encounter Visit Diagnoses [...] ONCE PRN Other, Hypersensitivity Reaction, Starting on Fri04/06/24 at 1057, Until Fri04/07/24 at 1056, For 24 hoursIndications:Encounter for antineoplastic chemotherapy,Cancer, metastatic to bone (HCC),Metastatic adenocarcinoma to liver (HCC),Small cell lung cancer, right (HCC) EPINEPHrine 1 MG/ML inj 0.3 mg 0.3 mg, Intramuscular, ONCE PRN Other, Hypersensitivity Reaction or Anaphylaxis, Starting on Fri04/06/24 at 1057, Until Fri04/07/24 at 1056, For 24 hoursIndications:Encounter for antineoplastic chemotherapy,Cancer, metastatic to bone (HCC),Metastatic adenocarcinoma to liver (HCC),Small cell lung cancer, right (HCC) hEParin 100 UNIT/ML Lock Flush inj 500 Units 500 Units (5 mL), IV Lock, PRN Other, IV Flush, Starting on Fri04/06/24 at 1057, Until Fri04/07/24 at 1056, For 24 hours, Do not flush if lock, PICC, or central line not in place; IV infusing or unable to flush.Indications:Encounter for antineoplastic chemotherapy,Cancer, metastatic to bone (HCC),Metastatic adenocarcinoma to liver (HCC),Small cell lung cancer, right (HCC) Given 04/06/2024 12:40 PM EST 500 Units Hydrocortisone Sod Suc (PF) (Solu-Cortef) inj 100 mg 100 mg, IV Push, ONCE PRN Other, Hypersensitivity Reaction, Starting on Fri04/06/24 at 1057, Until Fri04/07/24 at 1056, For 24 hoursIndications:Encounter for antineoplastic chemotherapy,Cancer, metastatic to bone (HCC),Metastatic adenocarcinoma to liver (HCC),Small cell lung cancer, right (HCC) LORAzepam (Ativan) tab 0.5 mg 0.5 mg, Oral, ONCE PRN Anxiety, Nausea, Starting on Fri04/06/24 at 1200, Until DiscontinuedIndications:Enco unter for antineoplastic chemotherapy,Cancer, metastatic to bone (HCC),Metastatic adenocarcinoma to liver (HCC),Small cell lung cancer, right (HCC) NSS infusion Intravenous, at 50 mL/hr, PRN, Starting on Fri04/06/24 at 1200, Until Discontinued, Maintenance lineIndications:Encounter for antineoplastic chemotherapy,Cancer, metastatic to bone (HCC),Metastatic adenocarcinoma to liver (HCC),Small cell lung cancer, right (HCC) Start Infusion 04/06/2024 10:58 AM EST 50 mL/hr oxygen GAS Inhalation, OXYGEN, First dose on Fri04/06/24 at 1130, Until Discontinued, Device/Managed by: Low Flow Device, [...] Flush, Starting on Fri04/06/24 at 1057, Until Fri04/07/24 at 1056, For 24 hours, Do not flush if lock, PICC, or central line not in place; IV infusing or unable to flush.Indications:Encounter for antineoplastic chemotherapy,Cancer, metastatic to bone (HCC),Metastatic adenocarcinoma to liver (HCC),Small cell lung cancer, right (HCC) Given 04/06/2024 12:39 PM EST 10 mL Inactive Administered Medications [...] 11:34 AM EST 190 mg 519.5 mL/hr ondansetron (Zofran) tab 8 mg 8 mg, Oral, ONCE, On Fri04/06/24 at 1115, For 1 dose, Give 30 minutes prior to chemotherapy.Indications:En counter for antineoplastic chemotherapy,Cancer, metastatic to bone (HCC),Metastatic adenocarcinoma to liver (HCC),Small cell lung cancer, right (HCC) Given 04/06/2024 11:15 AM EST 8 mg documented in this encounter Care Teams Wood Room Supervisor Relationship Specialty Start Date End Date Edel Clay MD [address] [place] [address] [place] [address] PCP - General Family Medicine 03/03/17 documented as of this encounter
--- OUTSIDE RECORDS SUMMARY | 2024-06-12 02:23 | External Medical Summary | Summary of Care ---
Author Name Unknown Organization [facility] Address [address] [place] [address] Phone [phone] Care Team Providers Care Biscuitware Brusher Name Role Phone Edel Clay MD Primary Care Provide r Reason for Visit * Reason Comments Treatment Encounter Details Date Type Department Care Team (Late st Contact Info) Description 03/15/2024 8:30 AM EST Office Visit Hematology/Oncology [facility] [place] [address] [place] [address] Monica Ward MD [address] [place] [address] Encounter for antineoplastic chemotherapy*; Cancer, metastatic to [...] 07/18/2008 06/01/2019 Overview (07/31/2009): thyroglobulin antibody >3000 [id number] 08/19/200608/10 Overview (08/25/2009): Renamed Per Clinical Trials Billing Project. Pt is a participant in the [facility] (Consortium of Rheumatology Researchers of [place]) national data collection study. For further information please call Dr Temo Castaneda or Kim Ríos, RN, CCRC at [phone] [facility] RESEARCH OTHER*[id number] 08/19/2006 11/06/2009 Overview (08/25/2009): Renamed Per Clinical Trials Billing Project. Pt is a participant in the [facility] (Consortium of Rheumatology Researchers of [place]) national data collection study. For further information please call Dr Temo Castaneda or Kim Ríos RN, CCRC at [phone] Arthritis, rheumatoid 07/01/20062016 Abnormal blood chemistry 05/02/2006 [...] Sign Reading Time Taken Comments Blood Pressure 129/86 03/15/2024 8:38 AM EST Pulse 88 03/15/2024 8:38 AM EST Temperature 36.6 C (97.9 F) 03/15/2024 8:38 AM ES T Respiratory Rate - - Oxygen Saturation 96% 03/15/2024 8:38 AM EST Inhaled Oxygen Concentration - - Weight 86 kg (189 lb 11.2 oz) 03/15/2024 8:38 AM EST Height - - Body Mass Index 33.4 01/15/2024 3:20 PM EDT documented in this encounter Progress Notes * Monica Ward MD - 03/15/2024 8:49 AM EST Date of visit: 03/15/2024 Chief Complaint Patient presents with Treatment Diagnosis: 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 Current treatment: Carboplatin + Etoposide + atezolizumab Q 3 weeks and Zometa Q 6 weeks Subjective Alfredo Torrez is a 58 year old female presents for follow upon 03/15/2024 and to start C5 carbo +etoposide + atezolizumab. She was last seen on 02/23/2024 for C4 carbo + etoposide + atezolizumab. The pt reports the following symptoms today: She reports having pain in the bend of her of lower back with radiation to the neck-patient has noticed that this occurs after she receives Zometa infusion, usually starts after the infusion and lasts for about 3-4 days off and on with the severity of 4/10, and is relieved by ibuprofen. Patient wasprescribed Percocet at the time of her initial diagnosis however she likes to avoid taking it. Patient reports not having any associated symptoms with this pain. The patient requests for olanzapine and dexamethasone (premedications for chemotherapy) She reports tolerating chemotherapy well without any other complaints or concerns. She underwent follow up/restaging PET scan on 02/17/2024 for treatment response monitoring that shows significant treatment response to the current treatment and shows significantly decreased size and FDG avidity of the right hilar mass, currently measuring approximally 18.8 x 44.1 mm axial (as compared [...] rib. Stable treated pelvic lucent bone lesions. 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 Multiple liver lesions, concerning for metastases, financial representative lesion in the posterior right hepatic [...] PET scan performed for treatment response monitoring 02/23/2024: Patient presents for follow up and to be considered for cycle 4 Atezolizumab, Etoposide, and Carboplatin + pegfilgrastim given on day 4 to treat chemotherapy-induced neutropenia 03/15/2024: Cycle 5 to be given PMH: Patient Active Problem List Diagnosis Acquired [...] taking: Reported on 02/23/2024) 4 mL 11 Azelastine HCl 137 MCG/SPRAY Nasal Solution SPRAY 2 SPRAYS INTO EACH NOSTRIL IN THE MORNING AND BEFORE BEDTIME 90 mL 3 Levothyroxine Sodium 100 MCG Oral Tablet (Levoxyl) Take 1 Tablet by mouth daily first thing in the morning. (at least 30 min prior to breakfast or other meds) 90 Tablet 3 Magic Swizzle (Qbgdziyvy-Reuuajjf-Vtlopu) oral solution Swish and spit 15 mL [...] 3, and 4 ofchemo. 8 Tablet 0 Current Facility-Administered Medications Medication Dose [...] Systems Constitutional: Positive for activity change, appetite change, fever and unexpected weight change. HENT: Negative. Eyes: Negative. Respiratory: Negative for cough and shortness of breath. Gastrointestinal: Negative. Endocrine: Negative. Genitourinary: Negative. Musculoskeletal: Positive for arthralgias. Allergic/Immunologic: Negative. Neurological: Negative. Hematological: Negative. Psychiatric/Behavioral: Negative. Objective BP 129/86 (BP Site: Left Arm, BP Position: Sitting, BP Cuff Size: Large) | Pulse 88 | Temp 36.6 C(97.9 F) (Tympanic) | Wt 86 kg (189 lb 11.2 oz) | LMP 09/07/2015 (Approximate) | SpO2 96% | BMI 33.40 kg/m | BSA 1.96 m Physical Exam Constitutional: Appearance: Normal appearance. HENT: Head: Normocephalic and atraumatic. Eyes: General: No scleral icterus. Extraocular Movements: Extraocular movements intact. Conjunctiva/sclera: Conjunctivae normal. Pupils: Pupils are equal, round, and reactive to light. Cardiovascular: Rate and Rhythm: Normal rate and [...] jaundiced or pale. Findings: No bruising. Neurological: General: No focal deficit present. Mental Status: She is alert and oriented to person, place, and time. Psychiatric: Mood and Affect: Mood normal. Behavior: Behavior normal. Thought Content: Thought content normal. Judgment: Judgment normal. 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 Encounter for antineoplastic chemotherapy (Primary) Cancer, metastatic to bone (HCC) Metastatic adenocarcinoma to liver (HCC) Small cell lung cancer, right (HCC) PLAN OF CARE DISCUSSED WITH PATIENT ON 03/15/2024: Okay for the Patient to receive cycle #5 chemo today on 03/15/2024 The PET scan shows excellent response to the 3 cycles of chemotherapy Continue the current chemotherapy for a total of 6 cycles of the current chemotherapy will be needed to achieve clinical remission. Continue Zometa Q 6 weeks-next dose due on 03/17/2024 Continue taking Citracal 1 tablet p.o. twice daily. Returns for follow-up after the next cycle of chemotherapy in 3 weeks- Follow Up: Return in about 3weeks for Clinic Visit and for cycle #6 chemo Follow-up: Return in about 3 weeks (around 04/05/2024). | Check-out note: Continue same treatment Monica Ward MD documented in this encounter Nursing Notes * Diya Raza, MED ASSIST - 03/15/2024 8:39 AM EST Patient identifed by name and birthdate Do you have any concerns about pain management for today's visit? Yes. Patient instructed to discuss pain concerns with provider during the visit today Living Will or Advance Directive for Health Care as noted on the problem list. [facility] is a way you can talk to your provider on line through e-mail. Would you like to sign up? I can activate it for you? ALREADY ACTIVE Filed Vitals: 03/15/24 0838 BP: 129/86 Pulse: 88 Temp: 36.6 C (97.9 F) TempSrc: Tympanic SpO2: 96% Weight: 86 kg (189 lb 11.2 oz) Patient was instructed to not get [...] Description 04/05/2024 8:10 AM EST Laboratory Laboratory [facility] 200 [facility] [place] [phone] [facility] [address] [place] [address] 04/05/2024 8:30 AM EST Office Visit Hematology/Oncology [facility] [address] [place] [phone] Monica Ward MD [address] [place] [address] [place] [address] 04/05/2024 9:00 AM EST Hem/Onc Treatment Hematology/Oncology Treatment, [place] 200 [facility] [place] [phone] [place], Chair 2 Hem Onc [address] [place] [address] 04/06/2024 10:30 AM EST Hem/Onc Treatment Hematology/Oncology Treatment, [place] 200 [facility], [place] [phone] [place], Chair 11 Hem Onc Scenery [address] [place], [place] [address] 04/07/2024 8:45 AM EST Hem/Onc Treatment Hematology/Oncology Treatment, [place] 200 [facility], [place] [phone] [place], Chair 2 Hem Onc Scenery [address] [place], [place] [address] 04/09/2024 9:00 AM EST Immunization/Injecti on Hematology/Oncology Treatment, [place] 200 [facility], [place] [phone] [place], Chair 4 Hem Onc Scenery [address] [place], [place] [address] 07/14/2024 3:00 PM EST Office Visit Pulmonary Medicine, [facility] 132 [facility] [place] [address] Eloy Pond MD [address] [facility] [place] [address] 10/15/2024 8:40 AM EDT Office Visit Rheumatology [address] [place] [phone] Samy Russo MD [address] [place] [address] Health Maintenance Due Date Last Done Comments [...] this encounter Medical Devices Implanted Type Area Chemical Analytical Sampler Device Identifier Shelf Expiration Date Model / Serial / Lot Port Implant W8f Poly Cath - [id number] Implanted:Qty : 1 on 12/31/2023 by Sin Burroughs MD at [facility] Right: Chest CR BARD : PERIPHERAL VASCULAR [id number] 10/09/2024 [id number] / / [id number] documented as of this encounter Visit Diagnoses Diagnosis Encounter for antineoplastic chemotherapy- Primary Cancer, metastatic to bone (HCC) Secondary malignant neoplasm of bone and bone marrow Metastatic adenocarcinoma to liver (HCC) Secondary malignant neoplasm of liver Small cell lung cancer, right (HCC) documented in this encounter Care Teams Biscuitware Brusher Relationship Specialty Start Date End Date Edel Clay MD [address] [place] [address] [place] [phone] PCP - General Family Medicine 03/03/17 documented as of this encounter
--- OUTSIDE RECORDS SUMMARY | 2024-06-12 02:23 | External Medical Summary | Summary of Care ---
Author Name Unknown Organization [facility] Address [address] [place] [address] Phone [phone] Care Team Providers Care Roofing Contractor Name Role Phone Edel Clay MD Primary Care Provide r Reason for Visit * Reason Comments Outpatient Testing Encounter Details Date Type Department Care Team (Late st Contact Info) Description 04/05/2024 8:10 AM EST Laboratory Laboratory [facility] [address] [place] [address] [facility] Lab Scenery [address] [place] [address] Metastatic adenocarcinoma to liver (HCC) Allergies Active [...] 07/18/2008 06/01/2019 Overview (07/31/2009): thyroglobulin antibody >3000 [id number] 08/19/200608/10 Overview (08/25/2009): Renamed Per Clinical Trials Billing Project. Pt is a participant in the [facility] (Consortium of Rheumatology Researchers of [place]) national data collection study. For further information please call Dr Temo Castaneda or Kim Ríos, RN, CCRC at [phone] [facility] RESEARCH OTHER*[id number] 08/19/2006 11/06/2009 Overview (08/25/2009): Renamed Per Clinical Trials Billing Project. Pt is a participant in the [facility] (Consortium of Rheumatology Researchers of [place]) national data collection study. For further information please call Dr Temo Castaneda or Kim Ríos, RN, CCRC at [phone] Arthritis, rheumatoid 07/01/20062016 Abnormal blood chemistry 05/02/2006 [...] Care Team (Latest Contact Info) Description 04/05/2024 8:30 AM EST Office Visit Hematology/Oncology [facility] [place] [address] [place] [address] Monica Ward MD [address] [place] [address] [place] [phone] Date of visit: 04/05/2024 04/05/2024 9:00 AM EST Hem/Onc Treatment Hematology/Oncology Treatment, [place] 200 [facility], [place] [phone] [place], Chair 2 Hem Onc Scenery [address] [place] [address] Arrived 04/06/2024 10:30 AM EST Hem/Onc Treatment Hematology/Oncology Treatment, [place] 200 [facility], [place] [phone] [place], Chair 11 Hem Onc Scenery [address] [place] [address] 04/07/2024 8:45 AM EST Hem/Onc Treatment Hematology/Oncology Treatment, [address], [place] [phone] [place], Chair 2 Hem Onc Scenery [address] [place] [address] 04/09/2024 9:00 AM EST Immunization/Injec tion Hematology/Oncology Treatment, [address], [place] [phone] [place], Chair 4 Hem Onc Scenery [address] [place], [place] [address] 07/14/2024 3:00 PM EST Office Visit Pulmonary Medicine, [facility] 132 [facility] [place] [address] Eloy Pond MD [address] [place] [address] 10/15/2024 8:40 AM EDT Office Visit Rheumatology [address] [place] [phone] Samy Russo MD [facility] [place] [address] Pending Results Name Type Priority Associated Diagnoses Date /Time TSH WITH FREE T4 IF INDICATED Lab STAT Metastatic adenocarcinoma to liver (HCC) 04/05/2024 8:06 AM EST COMPREHENSIVE METABOLIC PANEL Lab STAT Metastatic adenocarcinoma to liver (HCC) 04/05/2024 8:06 AM EST Health Maintenance Due Date Last [...] this encounter Medical Devices Implanted Type Area Draw Hand Device Identifier Shelf Expiration Date Model / Serial / Lot Port Implant W8f Poly Cath - [id number] Implanted:Qty : 1 on 12/31/2023 by Sin Burroughs MD at [facility] Right: Chest CR BARD : PERIPHERAL VASCULAR [id number] 10/09/2024 [id number] / / [id number] documented as of this encounter Procedures Procedure Name Priority Date/Time Associated Diagnosis Comments DIFFERENTIAL, AUTOMATED STAT 04/05/2024 8:06 AM EST Metastatic adenocarcinoma to liver (HCC) CBC STAT 04/05/2024 8:06 AM EST Metastatic adenocarcinoma to liver (HCC) CBC STAT 04/05/2024 8:06 AM EST Metastatic adenocarcinoma to liver (HCC) documented in this encounter Results * (ABNORMAL) DIFFERENTIAL, AUTOMATED (04/05/2024 8:06 AM EST) WBC 6.75 4.00 - 10.80 K/uL 04/05/2024 8:17 AM EST [facility] 56-02 Neutrophils % 49.4 40.0 - 75.0 % 04/05/2024 8:17 AM EST [facility] 56-02 Lymphocytes % 34.4 18.0 - 42.0 % 04/05/2024 8:17 AM EST [facility] 56-02 Monocytes % 14.8(H) 1.0 - 11.0 % 04/05/2024 8:17 AM EST [facility] 56-02 Eosinophils % 0.7 0.0 - 6.0 % 04/05/2024 8:17 AM EST [facility] 56-02 Basophils % 0.7 0.0 - 2.0 % 04/05/2024 8:17 AM [facility] 56- Absolute Neutrophils 3.33 1.80 - 7.70 K/uL 04/05/2024 8:17 AM [facility] 56 Absolute Lymphocytes 2.32 1.00 - 4.80 K/ul 04/05/2024 8:17 AM [facility] 56- Absolute Monocytes 1.00 0.00 - 1.10 K/uL 04/05/2024 8:17 AM [facility] 56 Absolute Eosinophils 0.05 0.00 - 0.70 K/uL 04/05/2024 8:17 AM [facility] 56- Absolute Basophils 0.05 0.00 - 0.20 K/uL 04/05/2024 8:17 AM [facility] 56 Blood Venous blood specimen / Unknown Venipuncture / Unknown 04/05/2024 8:06 AM EST 04/05/2024 8:06 AM EST Monica Ward MD LAB BLOOD OR DERABLES Final Result [facility] [address] [place] [address] * (ABNORMAL) CBC (04/05/2024 8:06 AM EST) WBC 6.75 4.00 - 10.80 K/uL 04/05/2024 8:17 AM [facility] 56- RBC 3.26 3.85 - 5.15 M/uL 04/05/2024 8:17 AM [facility] 56- HGB 11.0(L) 12.0 - 15.3 g/dL 04/05/2024 8:17 AM [facility] 56 HCT 35.0(L) 36.0 - 45.2 % 04/05/2024 8:17 AM [facility] 56- MCV 107.4 81.5 - 97.5 fL 04/05/2024 8:17 AM [facility] 56- MCH 33.7 27.0 - 34.0 pg 04/05/2024 8:17 AM [facility] 56- MCHC 31.4 32.0 - 36.0 g/dL 04/05/2024 8:17 AM [facility] 56- RDW 15.9 11.5 - 15.5 % 04/05/2024 8:17 AM [facility] 56- PLT 307 140 - 400 K/uL 04/05/2024 8:17 AM [facility] 56- MPV 8.7 6.6 - 11.1 fL 04/05/2024 8:17 AM [facility] 56- Blood Venous blood specimen / Unknown Venipuncture / Unknown 04/05/2024 8:06 AM EST 04/05/2024 8:06 AM EST us Monica Ward MD LAB BLOOD OR DERABLES Final Result [facility] [address]- [address] [place] [address] documented in this encounter Visit Diagnoses Diagnosis Metastatic adenocarcinoma to liver (HCC) Secondary malignant neoplasm of liver documented in this encounter Care Teams Roofing Contractor Relationship Specialty Start Date End Date Edel Clay MD [address] [place] [address] [place] [address] PCP - General Family Medicine 03/03/17 documented as of this encounter
--- OUTSIDE RECORDS SUMMARY | 2024-06-12 02:23 | External Medical Summary | Summary of Care ---
Author Name Unknown Organization [facility] Address [address] [place] [address] Phone [phone] Care Team Providers Care Integration Analyst Name Role Phone Edel Clay MD Primary Care Provide r Reason for Visit * Reason Comments eRx-Medication Refill Encounter Details Date Type Department Care Team (Late st Contact Info) Description 04/04/2024 Refill Family Medicine [address] [phone] Edel Clay MD [address] [place] [address] [place] [address] Rhinitis, nonallergic Allergies Active Allergy Reactions Criticality [...] MORNING AND BEFORE BEDTIME 90 mL 3 Active Azelastine HCl 137 MCG/SPRAY Nasal SolutionIndicatio [...] 07/18/2008 06/01/2019 Overview (07/31/2009): thyroglobulin antibody >3000 [id number] 08/19/200608/10 Overview (08/25/2009): Renamed Per Clinical Trials Billing Project. Pt is a participant in the [employer] (Consortium of Rheumatology Researchers of [place]) national data collection study. For further information please call Dr Temo Castaneda or Kim Ríos, RN, CCRC at [phone] [facility] RESEARCH OTHER*[id number] 08/19/2006 11/06/2009 Overview (08/25/2009): Renamed Per Clinical Trials Billing Project. Pt is a participant in the [employer] (Consortium of Rheumatology Researchers of [place]) national data collection study. For further information please call Dr Temo Castaneda or Kim Ríos RN, CCRC at [phone] Arthritis, rheumatoid 07/01/20062016 Abnormal blood chemistry 05/02/2006 [...] encounter Miscellaneous Notes * Telephone Encounter - Everett Castro, [facility] - 04/06/2024 1:39 AM ESTSigned Prescriptions: Disp Refills Azelastine HCl 137 MCG/SPRAY Nasal Wjlsvdsy07 mL 3 Sig: SPRAY 2 SPRAYS INTO EACH NOSTRIL IN THE MORNING AND BEFORE BEDTIMEAuthorizing Provider: EDEL CLAYOrdermarisabel User: EVERETT CASTRO documented in this encounter Plan of Treatment Upcoming Encounters Date Type Department Care Team (Late st Contact Info) Description 04/06/2024 10:30 AM EST Hem/Onc Treatment Hematology/Oncology Treatment, [place] [address] [facility], [place] [phone] [place], Chair 11 Hem Onc Scenery 200 [facility] [place] [address] 04/07/2024 8:45 AM EST Hem/Onc Treatment Hematology/Oncology Treatment, [place] [address] [facility], [place] [phone] [place], Chair 2 Hem Onc [facility] 200 [facility] [place] [address] 04/09/2024 9:00 AM EST Immunization/Injecti on Hematology/Oncology Treatment, [address], [place] [phone] [place], Chair 4 Hem Onc Scenery 200 [facility] [place], [place] [address] 04/21/2024 1:00 PM EST Hospital Encounter Radiology, [facility] 400 [facility] [place] [address] 04/26/2024 7:45 AM EST Imaging Radiology [facility], [place] 132 [facility] [place] [address] 05/03/2024 8:30 AM EST Office Visit Hematology/Oncology [facility] [place] [address] [place] [phone] Monica Ward MD 400 [facility] [place] [address] 07/14/2024 3:00 PM EST Office Visit Pulmonary Medicine, [facility] [address] [place] [address] Eloy Pond MD [address] [place] [address] 10/15/2024 8:40 AM EDT Office Visit Rheumatology [address] [place] [address] Samy Russo MD [address] [employer] [place] [address] Health Maintenance Due Date Last Done Comments [...] this encounter Medical Devices Implanted Type Area Telegraph Repeater Installer Device Identifier Shelf Expiration Date Model / Serial / Lot Port Implant W8f Poly Cath - [id number] Implanted:Qty : 1 on 12/31/2023 by Sin Burroughs MD at [facility] Right: Chest CR BARD : PERIPHERAL VASCULAR [id number] 10/09/2024 [id number] / / [id number] documented as of this encounter Visit Diagnoses Diagnosis Rhinitis, nonallergic Chronic rhinitis documented in this encounter Care Teams Integration Analyst Relationship Specialty Start Date End Date Edel Clay MD [address] [place] [address] [place] [phone] PCP - General Family Medicine 03/03/17 documented as of this encounter
[2024-06-12] MEDS: POTASSIUM CHLORIDE CRTAB 20 MEQ TABCR PO STA ×2 (02:24→12:09)
--- OUTSIDE RECORDS SUMMARY | 2024-06-12 02:24 | External Medical Summary | Summary of Care ---
Author Name Unknown Organization [facility] Address [address] [place] [address] Phone [phone] Care Team Providers Care Learning And Development Intern Name Role Phone Edel Clay MD Primary Care Provide r Reason for Visit * Reason Comments Chemotherapy Etoposide D3 * Episode Based Medications (Routine) - Authorized Specialty Diagnoses / Procedures Referred By Contac t Referred To Contact Diagnoses Encounter for antineoplastic chemotherapy Cancer, metastatic to bone (HCC) Metastatic adenocarcinoma to liver (HCC) Small cell lung cancer, right (HCC) Procedures AZ CARBOPLATIN INJECTION AZ FOSAPREPITANT INJECTION [place] ETOPOSIDE 10 MG INJ AZ INJ, ATEZOLIZUMAB,10 MG AZ INJECTION, Monica Anderson MD 400 [facility] [place] [address] Phone: tel: fax: Hematology/Oncology Treatment, [address] [place] [address] Phone: tel: fax: Referral ID Status Reason Start Date Expiration Date V isits Requested Visits Authorized [id number] Authorized 12/17/2023 06/13/2024 [id number] Encounter Details Date Type Department Care Team (Latest Contact Info) Description 02/25/2024 1:30 PM EDT Hem/Onc Treatment Hematology/Oncolog y Treatment, [address] [place] [address] Chair [place] 8 Hem Onc [address] [id number] Encounter for antineoplastic chemotherapy*; Cancer, metastatic to [...] as of this encounter (statuses as of 03/23/2024) Medications OMEGA-3 FATTY ACIDS 1000 MG PO CAPS 0 07/23/19 07 Active Orencia 125 MG/ML Subcutaneous Solution Prefilled Syringe (Abatacept)Indica tions:Rheumatoid arthritis involving multiple sites with positive rheumatoid factor (HCC) INJECT 125 MG ( ONE SYRINGE ) UNDER THE SKIN ONCE A WEEK 4 mL 11 12/26/19 23 Active Additional Information Patient not taking.Reported on 02/23/2024 Azelastine HCl 137 MCG/SPRAY Nasal SolutionIndicatio ns:Rhinitis, nonallergic SPRAY 2 SPRAYS INTO EACH NOSTRIL IN THE MORNING AND BEFORE BEDTIME 90 mL 3 06/06/19 24 Active Levothyroxine Sodium 100 MCG Oral Tablet (Levoxyl)Indicati [...] Take 2 Tablets by mouth in the morning for 3 days. With food on days 2, 3, and 4 of chemo.. Do not start before December 20, 2023. 24 Tablet 12/20/19 24 024 Discontin ued(Refil l) OLANZapine 10 MG Oral Tablet (zyPREXA)Indicati ons:Encounter for antineoplastic chemotherapy,Canc er, metastatic to bone (HCC),Metastatic adenocarcinoma to liver (HCC),Small cell lung cancer, right (HCC) Take 1 Tablet by mouth at bedtime for 4 days. On days 1, 2, 3, and 4 of chemo. 16 Tablet 12/19/19 24 024 Discontin ued(Refil l) Hospital, Clinic, [...] as of this encounter (statuses as of 03/23/2024) Active Problems Problem Noted Date Diagnosed Date [...] as of this encounter (statuses as of 03/23/2024) Resolved Problems Problem Noted Date Diagnosed Date [...] 07/18/2008 06/01/2019 Overview (07/31/2009): thyroglobulin antibody >3000 [id number] 08/19/200608/10 Overview (08/25/2009): Renamed Per Clinical Trials Billing Project. Pt is a participant in the [facility] (Consortium of Rheumatology Researchers of [facility]) national data collection study. For further information please call Dr Temo Castaneda or Kim Ríos, RN, CCRC at [phone] [facility] RESEARCH OTHER*[id number] 08/19/2006 11/06/2009 Overview (08/25/2009): Renamed Per Clinical Trials Billing Project. Pt is a participant in the [facility] (Consortium of Rheumatology Researchers of [place]) national data collection study. For further information please call Dr Temo Castaneda or Kim Ríos, RN, CCRC at [phone] Arthritis, rheumatoid 07/01/20062016 Abnormal blood chemistry 05/02/2006 [...] as of this encounter (statuses as of 03/23/2024) Immunizations Name Administration Dates Next Due COVID-19 [...] 28 S tarted: 12/04/1995 Smokeless Tobacco: Never Tobacco Cessation:Counseling Given: Not Answered Alcohol Use Standard Drinks/Week Comments Yes 0 [...] Sign Reading Time Taken Comments Blood Pressure 155/66 02/25/2024 1:40 PM EDT Pulse 74 02/25/2024 1:40 PM EDT Temperature 36.8 C (98.2 F) 02/25/2024 1:40 PM ED T Respiratory Rate 16 02/25/2024 1:40 PM EDT Oxygen Saturation 97% 02/25/2024 1:40 PM EDT Inhaled Oxygen Concentration - - Weight - - Height - - Body Mass Index - - documented in this encounter Nursing Notes * Domitila Nettles, NORM - 02/25/2024 4:09 PM EDT Pt completed treatment without issues. VAD flushed [...] stable condition. * Domitila Nettles RN - 02/25/2024 2:46 PM EDT Chair 3 Chemotherapy/Immunotherapy agents: ETOPOSIDE Consent for chemotherapy drug treatment complete, dated, and signed? yes, date - 12/12/23 12/12/23 Treatment lab parameters met? No new lab results today Has treatment weight changed > than 10%? No Treatment preauthorized? Yes VITALS Filed Vitals: 02/25/24 1340 BP: 155/66 Pulse: 74 Resp: 16 Temp: 36.8 C (98.2 F) TempSrc: Tympanic SpO2: 97% Urine protein: N/A Patient education completed for treatment? Yes Blood transfusion consent signed and complete? NA Return appointment scheduled? Yes Patient had provider visit today? No - If no provider visit must complete Pretreatment Assessment PRE-TREATMENT ASSESSMENT: NEURO: fatigue:stable CV/RESP: denies symptoms GI/: nausea: pt taking prn antiemetics OTHER: denies any additional symptoms PAIN: 0 VAD accessed; NSS infusing. Safety and Risk [...] Description 04/05/2024 8:10 AM EST Laboratory Laboratory [facility] [place] [address] [place] [address] [place], Lab Scenery [address] Sc[address] [facility] [place] [address] 04/05/2024 8:30 AM EST Office Visit Hematology/Oncology Scenery [place] [address] [place] [phone] Monica Ward MD [address] [place] [address] [place] [phone] 04/05/2024 9:00 AM EST Hem/Onc Treatment Hematology/Oncology Treatment, [place] 200 [facility], [place] [address] [place], Chair 2 Hem Onc Scenery [address] [place] [address] 04/06/2024 10:15 AM EST Hem/Onc Treatment Hematology/Oncology Treatment, [address], [place] [address] [place], Chair 5 Hem Onc Scenery [address] [place], [place] [address] 04/07/2024 8:45 AM EST Hem/Onc Treatment Hematology/Oncology Treatment, [address], [place] [address] [place], Chair 2 Hem Onc Scenery [address] [place] [address] 04/09/2024 9:00 AM EST Immunization/Injecti on Hematology/Oncology Treatment, [place] 200 [facility], [place] [address] [place], Chair 4 Hem Onc Scenery [address] [place] [address] 07/14/2024 3:00 PM EST Office Visit Pulmonary Medicine, [address] [place] [address] Eloy Pond MD [address] [facility] [place] [address] 10/15/2024 8:40 AM EDT Office Visit Rheumatology [address] [place] [address] Samy Russo MD [address] [facility] [place] [address] Health Maintenance Due Date Last Done Comments [...] this encounter Medical Devices Implanted Type Area Hub Associate Device Identifier Shelf Expiration Date Model / Serial / Lot Port Implant W8f Poly Cath - [id number] Implanted:Qty : 1 on 12/31/2023 by Sin Burroughs MD at [facility] Right: Chest CR BARD : PERIPHERAL VASCULAR [id number] 10/09/2024 [id number] / / [id number] documented as of this encounter Visit Diagnoses [...] weight), IV Piggyback, ONCE, 1 dose, On Fri02/25/24 at 1530, Administer over 60 Minutes, Recommended concentration is less than or equal to 0.4 mg/mL. If concentration is greater than 0.4 mg/mL recommend to administer through 0.22 micron low protein binding filter.Indications:Encount er for antineoplastic chemotherapy,Cancer, metastatic to bone (HCC),Metastatic adenocarcinoma to liver (HCC),Small cell lung cancer, right (HCC) Start Infusion 02/25/2024 2:27 PM EDT 190 mg 519.5 mL/hr hEParin 100 UNIT/ML Lock Flush inj 500 Units 500 Units (5 mL), IV Lock, PRN Other, IV Flush, Starting on Fri02/25/24 at 1352, Until Fri02/25/24 at 2010, For 24 hours, Do not flush if lock, PICC, or central line not in place; IV infusing or unable to flush.Indications:Encounte r for antineoplastic chemotherapy,Cancer, metastatic to bone (HCC),Metastatic adenocarcinoma to liver (HCC),Small cell lung cancer, right (HCC) Given 02/25/2024 3:32 PM EDT 500 Units NSS infusion Intravenous, at 50 mL/hr, PRN, Starting on Fri02/25/24 at 1500, Until Fri02/25/24 at 2009, Maintenance lineIndications:Encounter for antineoplastic chemotherapy,Cancer, metastatic to bone (HCC),Metastatic adenocarcinoma to liver (HCC),Small cell lung cancer, right (HCC) Start Infusion 02/25/2024 1:53 PM EDT 50 mL/hr ondansetron (Zofran) tab 8 mg 8 mg, Oral, ONCE, On Fri02/25/24 at 1415, For 1 dose, Give 30 minutes prior to chemotherapy.Indications:E ncounter for antineoplastic chemotherapy,Cancer, metastatic to bone (HCC),Metastatic adenocarcinoma to liver (HCC),Small cell lung cancer, right (HCC) Given 02/25/2024 2:05 PM EDT 8 mg sodium chloride 0.9 % flush central line 10 mL 10 mL, IV Push, PRN Other, IV Flush, Starting on Fri02/25/24 at 1352, Until Fri02/25/24 at 2009, For 24 hours, Do not flush if lock, PICC, or central line not in place; IV infusing or unable to flush.Indications:Encounte r for antineoplastic chemotherapy,Cancer, metastatic to bone (HCC),Metastatic adenocarcinoma to liver (HCC),Small cell lung cancer, right (HCC) Given 02/25/2024 3:32 PM EDT 10 mL documented in this encounter Care Teams Learning And Development Intern Relationship Specialty Start Date End Date Edel Clay MD [address] [place] [address] [place] [address] PCP - General Family Medicine 03/03/17 documented as of this encounter
--- OUTSIDE RECORDS SUMMARY | 2024-06-12 02:24 | External Medical Summary | Summary of Care ---
Author Name Unknown Organization [facility] Address [address] [place] [address] Phone [phone] Care Team Providers Care Coal Bagger Name Role Phone Edel Clay MD Primary [...] INJ NM INJ, ATEZOLIZUMAB,10 MG NM INJECTION, Monica Anderson MD [address] [place] [address] [place] [address] Phone: tel: fax: Hematology/Oncology Treatment, [address] [place] [address] Phone: tel: fax: Referral ID Status Reason Start Date Expiration Date V isits Requested Visits Authorized [id number] Authorized 12/17/2023 06/13/2024 [id number] Encounter Details Date Type Department Care Team (Latest Contact Info) Description 02/23/2024 8:30 AM EDT Hem/Onc Treatment Hematology/Oncolog y Treatment, [address] [place] [address] [place], Chair 4 Hem Onc [address] [address] Encounter for antineoplastic chemotherapy*; Cancer, metastatic to [...] sites with positive rheumatoid factor ([facility]) INJECT 125 MG ( ONE SYRINGE [...] 07/18/2008 06/01/2019 Overview (07/31/2009): thyroglobulin antibody >3000 [facility] 08/19/200608/10 Overview (08/25/2009): Renamed Per Clinical Trials Billing Project. Pt is a participant in the [employer] (Consortium of Rheumatology Researchers of [place]) national data collection study. For further information please call Dr Temo Castaneda or Kim Ríos, RN, CCRC at [phone] [facility] RESEARCH OTHER*[id number] 08/19/2006 11/06/2009 Overview (08/25/2009): Renamed Per Clinical Trials Billing Project. Pt is a participant in the [employer] (Consortium of Rheumatology Researchers of [place]) national data collection study. For further information please call Dr Temo Castaneda or Kim Ríos RN, CCRC at [phone] Arthritis, rheumatoid 07/01/20062016 Abnormal blood chemistry 05/02/2006 [...] Description 04/05/2024 8:10 AM EST Laboratory Laboratory [facility] [place] [address] [place] [phone] [place], Lab Scenery [address] [facility] [place] [address] 04/05/2024 8:30 AM EST Office Visit Hematology/Oncology [facility] [place] [address] [place] [address] Monica Ward MD [address] [place] [address] [place] [phone] 04/05/2024 9:00 AM EST Hem/Onc Treatment Hematology/Oncology Treatment, [address] [place], [place] [address] [place], Chair 2 Hem Onc Scenery 200 [facility] [place], [place] [address] 04/06/2024 10:15 AM EST Hem/Onc Treatment Hematology/Oncology Treatment, [address], [place] [address] [place], Chair 5 Hem Onc Scenery 200 [facility] [place], [place] [address] 04/07/2024 8:45 AM EST Hem/Onc Treatment Hematology/Oncology Treatment, [address], [place] [address] [place], Chair 2 Hem Onc Scenery [address] [place] [address] 04/09/2024 9:00 AM EST Immunization/Injecti on Hematology/Oncology Treatment, [address], [place] [address] [place], Chair 4 Hem Onc Scenery [address] [place] [address] 07/14/2024 3:00 PM EST Office Visit Pulmonary Medicine, [facility] [address] [place] [address] Eloy Pond MD [address] [place] [address] 10/15/2024 8:40 AM EDT Office Visit Rheumatology [address] [place] [address] Samy Russo MD [address] [facility], [place] [address] Health Maintenance Due Date Last Done Comments [...] this encounter Medical Devices Implanted Type Area Order Clerk Device Identifier Shelf Expiration Date Model / Serial / Lot Port Implant W8f Poly Cath - [id number] Implanted:Qty : 1 on 12/31/2023 by Sin Burroughs MD at [facility] Right: Chest CR BARD : PERIPHERAL VASCULAR [id number] 10/09/2024 [id number] / / [id number] documented as of this encounter Visit Diagnoses [...] mL documented in this encounter Care Teams Coal Bagger Relationship Specialty Start Date End Date Edel Clay MD [address] [place] [address] [place] [address] PCP - General Family Medicine 03/03/17 documented as of this encounter
--- OUTSIDE RECORDS SUMMARY | 2024-06-12 02:24 | External Medical Summary | Summary of Care ---
Author Name Unknown Organization [facility] Address [address] [place] [address] Phone [phone] Care Team Providers Care Per Assessment Nurse Name Role Phone Edel Clay MD Primary [...] ATEZOLIZUMAB,10 MG OR INJECTION, Monica Anderson MD [address] [place] [address] [place] [address] Phone: tel: fax: Hematology/Oncology Treatment, [address] [place] [address] Phone: tel: fax: Referral ID Status Reason Start Date Expiration Date V isits Requested Visits Authorized [id number] Authorized 12/17/2023 06/13/2024 999 [id number] Encounter Details Date Type Department Care Team (Latest Contact Info) Description 02/23/2024 8:30 AM EDT Hem/Onc Treatment Hematology/Oncolog y Treatment, [address] [place] [address] [place], Chair 4 Hem Onc [address] [address] Encounter for antineoplastic chemotherapy*; Cancer, metastatic to [...] involving multiple sites with positive rheumatoid factor ([facility]) INJECT 125 MG ( ONE SYRINGE ) [...] 07/18/2008 06/01/2019 Overview (07/31/2009): thyroglobulin antibody >3000 [facility] 08/19/200608/10 Overview (08/25/2009): Renamed Per Clinical Trials Billing Project. Pt is a participant in the [employer] (Consortium of Rheumatology Researchers of [place]) national data collection study. For further information please call Dr Temo Castaneda or Kim Ríos, RN, CCRC at [phone] [facility] RESEARCH OTHER*[id number] 08/19/2006 11/06/2009 Overview (08/25/2009): Renamed Per Clinical Trials Billing Project. Pt is a participant in the [employer] (Consortium of Rheumatology Researchers of [place]) national data collection study. For further information please call Dr Temo Castaenda or Kim Ríso RN, CCRC at [phone] Arthritis, rheumatoid 07/01/20062016 Abnormal blood chemistry 05/02/2006 [...] Description 04/05/2024 8:10 AM EST Laboratory Laboratory [facility] [place] [address] [place] [phone] [place], Lab Scenery [address] Sc[address] [facility] [place] [address] 04/05/2024 8:30 AM EST Office Visit Hematology/Oncology [facility] [place] [address] [place] [phone] Monica Ward MD [address] [place] [address] [place] [phone] 04/05/2024 9:00 AM EST Hem/Onc Treatment Hematology/Oncology Treatment, [address] [place], [place] [address] [place], Chair 2 Hem Onc Scenery 200 [facility] [place], [place] [address] 04/06/2024 10:15 AM EST Hem/Onc Treatment Hematology/Oncology Treatment, [address], [place] [address] [place], Chair 5 Hem Onc Scenery 200 [facility] [place], [place] [address] 04/07/2024 8:45 AM EST Hem/Onc Treatment Hematology/Oncology Treatment, [address], [place] [address] [place], Chair 2 Hem Onc Scenery [address] [place] [address] 04/09/2024 9:00 AM EST Immunization/Injecti on Hematology/Oncology Treatment, [address], [place] [address] [place], Chair 4 Hem Onc Scenery [address] [place] [address] 07/14/2024 3:00 PM EST Office Visit Pulmonary Medicine, [facility] [address] [place] [address] Eloy Pond MD [address] [place] [address] 10/15/2024 8:40 AM EDT Office Visit Rheumatology [address] [place] [address] Samy Russo MD [address] [facility], [place] [address] Health Maintenance Due Date Last Done Comments [...] encounter Medical Devices Implanted Type Area Senior Sales Administrator Device Identifier Shelf Expiration Date Model / Serial / Lot Port Implant W8f Poly Cath - [id number] Implanted:Qty : 1 on 12/31/2023 by Sin Burroughs MD at OR [facility] Right: Chest CR BARD : PERIPHERAL VASCULAR [id number] 10/09/2024 [id number] / / [id number] documented as of this encounter Visit Diagnoses [...] mL documented in this encounter Care Teams Per Assessment Nurse Relationship Specialty Start Date End Date Edel Clay MD [address] [place] [address] [place] [address] PCP - General Family Medicine 03/03/17 documented as of this encounter
--- OUTSIDE RECORDS SUMMARY | 2024-06-12 02:24 | External Medical Summary | Summary of Care ---
Author Name Unknown Organization [facility] Address [address] [place] [address] Phone [phone] Care Team Providers Care Neighborhood Worker Name Role Phone Edel Clay MD Primary [...] ATEZOLIZUMAB,10 MG [place] INJECTION, Monica Anderson MD [address] [place] [address] [place] [address] Phone: tel: fax: Hematology/Oncology Treatment, [address] [place] [address] Phone: tel: fax: Referral ID Status Reason Start Date Expiration Date V isits Requested Visits Authorized [id number] Authorized 12/17/2023 06/13/2024 999 [id number] Encounter Details Date Type Department Care Team (Latest Contact Info) Description 02/23/2024 8:30 AM EDT Hem/Onc Treatment Hematology/Oncolog y Treatment, [address] [place] [address] [place], Chair 4 Hem Onc [address] [address] Encounter for antineoplastic chemotherapy*; Cancer, metastatic to [...] involving multiple sites with positive rheumatoid factor ([facility]) INJECT 125 MG ( ONE SYRINGE ) [...] 06/01/2019 Overview (07/31/2009): thyroglobulin antibody >3000 [facility] 08/19/200608/10 Overview (08/25/2009): Renamed Per Clinical Trials Billing Project. Pt is a participant in the [employer] (Consortium of Rheumatology Researchers of [place]) national data collection study. For further information please call Dr Temo Castaneda or iKm Ríos, RN, CCRC at [phone] [facility] RESEARCH OTHER*[id number] 08/19/2006 11/06/2009 Overview (08/25/2009): Renamed Per Clinical Trials Billing Project. Pt is a participant in the [employer] (Consortium of Rheumatology Researchers of [place]) national data collection study. For further information please call Dr Temo Castaneda or Kim Ríos RN, CCRC at [phone] Arthritis, rheumatoid 07/01/20062016 Abnormal blood chemistry 05/02/2006 [...] Description 04/05/2024 8:10 AM EST Laboratory Laboratory [facility] [place] [address] [place] [phone] [place], Lab Scenery [address] [facility] [place] [address] 04/05/2024 8:30 AM EST Office Visit Hematology/Oncology [facility] [place] [address] [place] [address] Monica Ward MD [address] [place] [address] [place] [phone] 04/05/2024 9:00 AM EST Hem/Onc Treatment Hematology/Oncology Treatment, [address] [place], [place] [address] [place], Chair 2 Hem Onc Scenery 200 [facility] [place], [place] [address] 04/06/2024 10:15 AM EST Hem/Onc Treatment Hematology/Oncology Treatment, [address], [place] [address] [place], Chair 5 Hem Onc Scenery 200 [facility] [place], [place] [address] 04/07/2024 8:45 AM EST Hem/Onc Treatment Hematology/Oncology Treatment, [address], [place] [address] [place], Chair 2 Hem Onc Scenery [address] [place] [address] 04/09/2024 9:00 AM EST Immunization/Injecti on Hematology/Oncology Treatment, [address], [place] [address] [place], Chair 4 Hem Onc Scenery [address] [place] [address] 07/14/2024 3:00 PM EST Office Visit Pulmonary Medicine, [facility] [address] [place] [address] Eloy Pond MD [address] [place] [address] 10/15/2024 8:40 AM EDT Office Visit Rheumatology [address] [place] [address] Samy Russo MD [address] [facility], [place] [address] Health Maintenance Due Date Last Done Comments [...] this encounter Medical Devices Implanted Type Area Registered Respiratory Therapist Device Identifier Shelf Expiration Date Model / Serial / Lot Port Implant W8f Poly Cath - [id number] Implanted:Qty : 1 on 12/31/2023 by Sin Burroughs MD at OR [facility] Right: Chest CR BARD : PERIPHERAL VASCULAR [id number] 10/09/2024 [id number] / / [id number] documented as of this encounter Visit Diagnoses [...] mL documented in this encounter Care Teams Neighborhood Worker Relationship Specialty Start Date End Date Edel Clay MD [address] [place] [address] [place] [address] PCP - General Family Medicine 03/03/17 documented as of this encounter
--- OUTSIDE RECORDS SUMMARY | 2024-06-12 02:24 | External Medical Summary | Summary of Care ---
Author Name Unknown Organization [facility] Address [address] [place] [address] Phone [phone] Care Team Providers Care Process Controls Technician Name Role Phone Edel Clay MD Primary [...] ATEZOLIZUMAB,10 MG [place] INJECTION, Monica Anderson MD [address] [place] [address] [place] [address] Phone: tel: fax: Hematology/Oncology Treatment, [address] [place] [address] Phone: tel: fax: Referral ID Status Reason Start Date Expiration Date V isits Requested Visits Authorized [id number] Authorized 12/17/2023 06/13/2024 999 [id number] Encounter Details Date Type Department Care Team (Latest Contact Info) Description 02/23/2024 8:30 AM EDT Hem/Onc Treatment Hematology/Oncolog y Treatment, [address] [place] [address] [place], Chair 4 Hem Onc [address] [address] Encounter for antineoplastic chemotherapy*; Cancer, metastatic to [...] sites with positive rheumatoid factor ([facility]) INJECT 125 MG ( ONE SYRINGE ) [...] 07/18/2008 06/01/2019 Overview (07/31/2009): thyroglobulin antibody >3000 [facility] 08/19/200608/10 Overview (08/25/2009): Renamed Per Clinical Trials Billing Project. Pt is a participant in the [employer] (Consortium of Rheumatology Researchers of [place]) national data collection study. For further information please call Dr Temo Castaneda or Kmi Ríos, RN, CCRC at [phone] [employer] RESEARCH OTHER*[id number] 08/19/2006 11/06/2009 Overview (08/25/2009): Renamed Per Clinical Trials Billing Project. Pt is a participant in the [employer] (Consortium of Rheumatology Researchers of [place]) national data collection study. For further information please call Dr Temo Castaneda or Kim Ríos RN, CCRC at [phone] Arthritis, rheumatoid 07/01/20062016 Abnormal blood chemistry 05/02/2006 [...] Description 04/05/2024 8:10 AM EST Laboratory Laboratory [facility] [place] [address] [place] [phone] [place], Lab Scenery [address] [facility] [place] [address] 04/05/2024 8:30 AM EST Office Visit Hematology/Oncology [facility] [place] [address] [place] [address] Monica Ward MD [address] [place] [address] [place] [phone] 04/05/2024 9:00 AM EST Hem/Onc Treatment Hematology/Oncology Treatment, [address] [place], [place] [address] [place], Chair 2 Hem Onc Scenery 200 [facility] [place], [place] [address] 04/06/2024 10:15 AM EST Hem/Onc Treatment Hematology/Oncology Treatment, [address], [place] [address] [place], Chair 5 Hem Onc Scenery 200 [facility] [place], [place] [address] 04/07/2024 8:45 AM EST Hem/Onc Treatment Hematology/Oncology Treatment, [address], [place] [address] [place], Chair 2 Hem Onc Scenery [address] [place] [address] 04/09/2024 9:00 AM EST Immunization/Injecti on Hematology/Oncology Treatment, [address], [place] [address] [place], Chair 4 Hem Onc Scenery [address] [place] [address] 07/14/2024 3:00 PM EST Office Visit Pulmonary Medicine, [facility] [address] [place] [address] Eloy Pond MD [address] [place] [address] 10/15/2024 8:40 AM EDT Office Visit Rheumatology [address] [place] [address] Samy Russo MD [address] [facility], [place] [address] Health Maintenance Due Date Last Done Comments [...] this encounter Medical Devices Implanted Type Area [employer] Gold Attendant Device Identifier Shelf Expiration Date Model / Serial / Lot Port Implant W8f Poly Cath - [id number] Implanted:Qty : 1 on 12/31/2023 by Sin Burroughs MD at OR [facility] Right: Chest CR BARD : PERIPHERAL VASCULAR [id number] 10/09/2024 [id number] / / [id number] documented as of this encounter Visit Diagnoses [...] mL documented in this encounter Care Teams Process Controls Technician Relationship Specialty Start Date End Date Edel Clay MD [address] [place] [address] [place] [address] PCP - General Family Medicine 03/03/17 documented as of this encounter
--- OUTSIDE RECORDS SUMMARY | 2024-06-12 02:24 | External Medical Summary | Summary of Care ---
Author Name Unknown Organization [facility] Address [address] [place] [address] Phone [phone] Care Team Providers Care Fisher Trawl Net Name Role Phone Edel Clay MD Primary Care Provide r Reason for Visit * Reason Comments Chemotherapy C4 D2 Etoposide * Episode Based Medications (Routine) - Authorized Specialty Diagnoses / Procedures Referred By Contac t Referred To Contact Diagnoses Encounter for antineoplastic chemotherapy Cancer, metastatic to bone (HCC) Metastatic adenocarcinoma to liver (HCC) Small cell lung cancer, right (HCC) Procedures OK CARBOPLATIN INJECTION OK FOSAPREPITANT INJECTION OK ETOPOSIDE 10 MG INJ OK INJ, ATEZOLIZUMAB,10 MG [place] INJECTION, Monica Anderson MD [address] [facility] [place] [address] Phone: tel: fax: Hematology/Oncology Treatment, [address] [place] [address] Phone: tel: fax: Referral ID Status Reason Start Date Expiration Date V isits Requested Visits Authorized [id number] Authorized 12/17/2023 06/13/[phone] Encounter Details Date Type Department Care Team (Latest Contact Info) Description 02/24/2024 1:00 PM EDT Hem/Onc Treatment Hematology/Oncolog y Treatment, [address] [address] [place], Chair 11 Hem Onc [address] [address] Encounter for antineoplastic chemotherapy*; Cancer, [...] 07/18/2008 06/01/2019 Overview (07/31/2009): thyroglobulin antibody >3000 [id number] 08/19/200608/10 Overview (08/25/2009): Renamed Per Clinical Trials Billing Project. Pt is a participant in the [facility] (Consortium of Rheumatology Researchers of [facility]) national data collection study. For further information please call Dr Temo Castaneda or Kim Ríos, RN, CCRC at [phone] [facility] RESEARCH OTHER*[id number] 08/19/2006 11/06/2009 Overview (08/25/2009): Renamed Per Clinical Trials Billing Project. Pt is a participant in the [facility] (Consortium of Rheumatology Researchers of [place]) national data collection study. For further information please call Dr Temo Castaneda or Kim Ríos, RN, CCRC at [phone] Arthritis, rheumatoid 07/01/20062016 Abnormal blood chemistry 05/02/2006 [...] Sign Reading Time Taken Comments Blood Pressure 149/76 02/24/2024 1:00 PM EDT Pulse 69 02/24/2024 1:00 PM EDT Temperature 36.7 C (98.1 F) 02/24/2024 1:00 PM ED T Respiratory Rate 18 02/24/2024 1:00 PM EDT Oxygen Saturation 97% 02/24/2024 1:00 PM EDT Inhaled Oxygen Concentration - - Weight - - Height - - Body Mass Index - - documented in this encounter Nursing Notes * Francine Lewis, RN - 02/24/2024 3:20 PM EDT Patient tolerated treatment without issue. VAD with [...] stable condition. * Francine Lewis RN - 02/24/2024 2:30 PM EDT Chair 8 Patient arrived for treatment. Patient offered no acute complaints. Port accessed with brisk blood return. Chemotherapy/Immunotherapy agents: ETOPOSIDE Consent for chemotherapy drug treatment complete, dated, and signed? yes, date - 12/12/23 Treatment lab parameters met? Yes Has treatment weight changed > than 10%? No Treatment preauthorized? Yes VITALS Filed Vitals: 02/24/24 1300 BP: 149/76 Pulse: 69 Resp: 18 Temp: 36.7 C (98.1 F) SpO2: 97% Urine protein: N/A Patient education [...] Description 04/05/2024 8:10 AM EST Laboratory Laboratory [facility] [place] [address] [place] [phone] [place], Lab Scenery [address] [place], [place] [address] 04/05/2024 8:30 AM EST Office Visit Hematology/Oncology Scenery [place] [address] [place], [place] [phone] Monica Ward MD [address] [place], [place] [address] [phone] 04/05/2024 9:00 AM EST Hem/Onc Treatment Hematology/Oncology Treatment, [address], [place] [address] [place], Chair 2 Hem Onc Scenery 200 [facility] [place], [place] [address] 04/06/2024 10:15 AM EST Hem/Onc Treatment Hematology/Oncology Treatment, [address], [place] [address] [place], Chair 5 Hem Onc Scenery 200 [facility] [place], [place] [address] 04/07/2024 8:45 AM EST Hem/Onc Treatment Hematology/Oncology Treatment, [address], [place] [address] [place], Chair 2 Hem Onc Scenery 200 [facility] [place], [place] [address] 04/09/2024 9:00 AM EST Immunization/Injecti on Hematology/Oncology Treatment, [address], [place] [address] [place], Chair 4 Hem Onc Scenery [address] [place], [place] [address] 07/14/2024 3:00 PM EST Office Visit Pulmonary Medicine, [facility] [address] [facility] [place] [address] Eloy Pond MD [address] [place] [address] 10/15/2024 8:40 AM EDT Office Visit Rheumatology [address] [place] [phone] Samy Russo MD [address] [facility] [place], [place] [address] Health Maintenance Due Date Last Done Comments [...] this encounter Medical Devices Implanted Type Area Diesel Engine I Pipe Fitter Device Identifier Shelf Expiration Date Model / Serial / Lot Port Implant W8f Poly Cath - [id number] Implanted:Qty : 1 on 12/31/2023 by Sin Burroughs MD at OR [facility] Right: Chest CR BARD : PERIPHERAL VASCULAR [id number] 10/09/2024 [id number] / / [id number] documented as of this encounter Visit Diagnoses [...] weight), IV Piggyback, ONCE, 1 dose, On Fri02/24/24 at 1500, Administer over 60 Minutes, Recommended concentration is less than or equal to 0.4 mg/mL. If concentration is greater than 0.4 mg/mL recommend to administer through 0.22 micron low protein binding filter.Indications:Encount er for antineoplastic chemotherapy,Cancer, metastatic to bone (HCC),Metastatic adenocarcinoma to liver (HCC),Small cell lung cancer, right (HCC) Start Infusion 02/24/2024 1:52 PM EDT 190 mg 519.5 mL/hr hEParin 100 UNIT/ML Lock Flush inj 500 Units 500 Units (5 mL), IV Lock, PRN Other, IV Flush, Starting on Fri02/24/24 at 1324, Until Fri02/24/24 at 1924, For 24 hours, Do not flush if lock, PICC, or central line not in place; IV infusing or unable to flush.Indications:Encounte r for antineoplastic chemotherapy,Cancer, metastatic to bone (HCC),Metastatic adenocarcinoma to liver (HCC),Small cell lung cancer, right (HCC) Given 02/24/2024 2:58 PM EDT 500 Units NSS infusion Intravenous, at 50 mL/hr, PRN, Starting on Fri02/24/24 at 1430, Until Fri02/24/24 at 1924, Maintenance lineIndications:Encounter for antineoplastic chemotherapy,Cancer, metastatic to bone (HCC),Metastatic adenocarcinoma to liver (HCC),Small cell lung cancer, right (HCC) Start Infusion 02/24/2024 1:26 PM EDT 50 mL/hr ondansetron (Zofran) tab 8 mg 8 mg, Oral, ONCE, On Fri02/24/24 at 1430, For 1 dose, Give 30 minutes prior to chemotherapy.Indications:E ncounter for antineoplastic chemotherapy,Cancer, metastatic to bone (HCC),Metastatic adenocarcinoma to liver (HCC),Small cell lung cancer, right (HCC) Given 02/24/2024 1:36 PM EDT 8 mg sodium chloride 0.9 % flush central line 10 mL 10 mL, IV Push, PRN Other, IV Flush, Starting on Fri02/24/24 at 1324, Until Fri02/24/24 at 1924, For 24 hours, Do not flush if lock, PICC, or central line not in place; IV infusing or unable to flush.Indications:Encounte r for antineoplastic chemotherapy,Cancer, metastatic to bone (HCC),Metastatic adenocarcinoma to liver (HCC),Small cell lung cancer, right (HCC) Given 02/24/2024 2:57 PM EDT 10 mL documented in this encounter Care Teams Fisher Trawl Net Relationship Specialty Start Date End Date Edel Clay MD [address] [place] [address] [place] [phone] PCP - General Family Medicine 03/03/17 documented as of this encounter
--- OUTSIDE RECORDS SUMMARY | 2024-06-12 02:24 | External Medical Summary | Summary of Care ---
Author Name Unknown Organization [facility] Address [address] [place] [address] Phone [phone] Care Team Providers Care Computer Programming Supervisor Name Role Phone Edel Clay MD Primary Care Provide r Reason for Visit * Reason Comments Chemotherapy C4 D2 Etoposide * Episode Based Medications (Routine) - Authorized Specialty Diagnoses / Procedures Referred By Contac t Referred To Contact Diagnoses Encounter for antineoplastic chemotherapy Cancer, metastatic to bone (HCC) Metastatic adenocarcinoma to liver (HCC) Small cell lung cancer, right (HCC) Procedures ID CARBOPLATIN INJECTION ID FOSAPREPITANT INJECTION ID ETOPOSIDE 10 MG INJ ID INJ, ATEZOLIZUMAB,10 MG [place] INJECTION, Monica Anderson MD [address] [facility] [place] [address] Phone: tel: fax: Hematology/Oncology Treatment, [address] [place] [address] Phone: tel: fax: Referral ID Status Reason Start Date Expiration Date V isits Requested Visits Authorized [id number] Authorized 12/17/2023 06/13/2024 999 999 Encounter Details Date Type Department Care Team (Latest Contact Info) Description 02/24/2024 1:00 PM EDT Hem/Onc Treatment Hematology/Oncolog y Treatment, [address] [address] [place], Chair 11 Hem Onc [address] [address] Encounter for antineoplastic chemotherapy*; Cancer, [...] 07/18/2008 06/01/2019 Overview (07/31/2009): thyroglobulin antibody >3000 [id number] 08/19/200608/10 Overview (08/25/2009): Renamed Per Clinical Trials Billing Project. Pt is a participant in the [facility] (Consortium of Rheumatology Researchers of [facility]) national data collection study. For further information please call Dr Temo Castaneda or Kim Ríos, RN, CCRC at [phone] [facility] RESEARCH OTHER*[id number] 08/19/2006 11/06/2009 Overview (08/25/2009): Renamed Per Clinical Trials Billing Project. Pt is a participant in the [facility] (Consortium of Rheumatology Researchers of [place]) national data collection study. For further information please call Dr Temo Castaneda or Kim Ríos, RN, CCRC at [phone] Arthritis, rheumatoid 07/01/20062016 Abnormal blood chemistry 05/02/2006 [...] Description 04/05/2024 8:10 AM EST Laboratory Laboratory [facility] [place] [address] [place] [phone] [place], Lab Scenery [address] [place], [place] [address] 04/05/2024 8:30 AM EST Office Visit Hematology/Oncology Scenery [place] [address] [place], [place] [phone] Monica Ward MD [address] [place], [place] [address] [phone] 04/05/2024 9:00 AM EST Hem/Onc Treatment Hematology/Oncology Treatment, [address], [place] [address] [place], Chair 2 Hem Onc Scenery 200 [facility] [place], [place] [address] 04/06/2024 10:15 AM EST Hem/Onc Treatment Hematology/Oncology Treatment, [address], [place] [address] [place], Chair 5 Hem Onc Scenery 200 [facility] [place], [place] [address] 04/07/2024 8:45 AM EST Hem/Onc Treatment Hematology/Oncology Treatment, [address], [place] [address] [place], Chair 2 Hem Onc Scenery 200 [facility] [place], [place] [address] 04/09/2024 9:00 AM EST Immunization/Injecti on Hematology/Oncology Treatment, [address], [place] [address] [place], Chair 4 Hem Onc Scenery [address] [place], [place] [address] 07/14/2024 3:00 PM EST Office Visit Pulmonary Medicine, Health system [address] [facility] [place] [address] Eloy Pond MD [address] [place] [address] 10/15/2024 8:40 AM EDT Office Visit Rheumatology [address] [place] [phone] Samy Russo MD [address] [employer] [place], [place] [address] Health Maintenance Due Date Last Done Comments [...] this encounter Medical Devices Implanted Type Area Telephoner Device Identifier Shelf Expiration Date Model / Serial / Lot Port Implant W8f Poly Cath - [id number] Implanted:Qty : 1 on 12/31/2023 by Sin Burroughs MD at OR [facility] Right: Chest CR BARD : PERIPHERAL VASCULAR [id number] 10/09/2024 [id number] / / [id number] documented as of this encounter Visit Diagnoses [...] mL documented in this encounter Care Teams Computer Programming Supervisor Relationship Specialty Start Date End Date Edel Clay MD [address] [place] [address] [place] [phone] PCP - General Family Medicine 03/03/17 documented as of this encounter
--- OUTSIDE RECORDS SUMMARY | 2024-06-12 02:24 | External Medical Summary | Summary of Care ---
Author Name Unknown Organization [facility] Address [address] [place] [address] Phone [phone] Care Team Providers Care Senior Health Consultant Name Role Phone Edel Clay MD Primary Care Provide r Reason for Visit * Reason Comments Chemotherapy C4 D2 Etoposide * Episode Based Medications (Routine) - Authorized Specialty Diagnoses / Procedures Referred By Contac t Referred To Contact Diagnoses Encounter for antineoplastic chemotherapy Cancer, metastatic to bone (HCC) Metastatic adenocarcinoma to liver (HCC) Small cell lung cancer, right (HCC) Procedures VA CARBOPLATIN INJECTION VA FOSAPREPITANT INJECTION VA ETOPOSIDE 10 MG INJ VA INJ, ATEZOLIZUMAB,10 MG VA INJECTION, Monica Anderson MD [address] [facility] [place] [address] Phone: tel: fax: Hematology/Oncology Treatment, [address] [place] [address] Phone: tel: fax: Referral ID Status Reason Start Date Expiration Date V isits Requested Visits Authorized [id number] Authorized 12/17/2023 06/13/2024 [id number] Encounter Details Date Type Department Care Team (Latest Contact Info) Description 02/24/2024 1:00 PM EDT Hem/Onc Treatment Hematology/Oncolog y Treatment, [address] [address] [place], Chair 11 Hem Onc [address] [address] Encounter for antineoplastic chemotherapy*; Cancer, [...] 07/18/2008 06/01/2019 Overview (07/31/2009): thyroglobulin antibody >3000 [id number] 08/19/200608/10 Overview (08/25/2009): Renamed Per Clinical Trials Billing Project. Pt is a participant in the [facility] (Consortium of Rheumatology Researchers of [facility]) national data collection study. For further information please call Dr Temo Castaneda or Kim Ríos, RN, CCRC at [phone] [facility] RESEARCH OTHER*[id number] 08/19/2006 11/06/2009 Overview (08/25/2009): Renamed Per Clinical Trials Billing Project. Pt is a participant in the [facility] (Consortium of Rheumatology Researchers of [place]) national data collection study. For further information please call Dr Temo Castaneda or Kim Ríos, RN, CCRC at [phone] Arthritis, rheumatoid 07/01/20062016 Abnormal blood chemistry 05/02/2006 [...] Description 04/05/2024 8:10 AM EST Laboratory Laboratory [facility] [place] [address] [place] [phone] [place], Lab Scenery [address] [place], [place] [address] 04/05/2024 8:30 AM EST Office Visit Hematology/Oncology Scenery [place] [address] [place], [place] [phone] Monica Ward MD [address] [place], [place] [address] [phone] 04/05/2024 9:00 AM EST Hem/Onc Treatment Hematology/Oncology Treatment, [address], [place] [address] [place], Chair 2 Hem Onc Scenery 200 [facility] [place], [place] [address] 04/06/2024 10:15 AM EST Hem/Onc Treatment Hematology/Oncology Treatment, [address], [place] [phone] [place], Chair 5 Hem Onc Scenery [address] [facility] [place], [place] [address] 04/07/2024 8:45 AM EST Hem/Onc Treatment Hematology/Oncology Treatment, [address], [place] [address] [place], Chair 2 Hem Onc Scenery [address] [facility] [place], [place] [address] 04/09/2024 9:00 AM EST Immunization/Injecti on Hematology/Oncology Treatment, [address], [place] [address] [place], Chair 4 Hem Onc Scenery [address] [place], [place] [address] 07/14/2024 3:00 PM EST Office Visit Pulmonary Medicine, [facility] [address] [facility] [place] [address] Eloy Pond MD [address] [place] [address] 10/15/2024 8:40 AM EDT Office Visit Rheumatology [address] [place] [phone] Samy Russo MD [address] [place], [place] [address] Health Maintenance Due Date Last Done Comments [...] this encounter Medical Devices Implanted Type Area Chief Of Vital Statistics Device Identifier Shelf Expiration Date Model / Serial / Lot Port Implant W8f Poly Cath - [id number] Implanted:Qty : 1 on 12/31/2023 by Sin Burroughs MD at OR [facility] Right: Chest CR BARD : PERIPHERAL VASCULAR [id number] 10/09/2024 [id number] / / [id number] documented as of this encounter Visit Diagnoses [...] mL documented in this encounter Care Teams Senior Health Consultant Relationship Specialty Start Date End Date Edel Clay MD [address] [place] [address] [place] [phone] PCP - General Family Medicine 03/03/17 documented as of this encounter
--- OUTSIDE RECORDS SUMMARY | 2024-06-12 02:24 | External Medical Summary | Summary of Care ---
Author Name Unknown Organization [facility] Address [address] [place] [address] Phone [phone] Care Team Providers Care Photo Tube Assembler Name Role Phone Edel Clay MD Primary [...] [place] INJ, ATEZOLIZUMAB,10 MG [place] INJECTION, Monica Anedrson MD [address] [place] [address] [place] [address] Phone: tel: fax: Hematology/Oncology Treatment, [address] [place] [address] Phone: tel: fax: Referral ID Status Reason Start Date Expiration Date V isits Requested Visits Authorized [id number] Authorized 12/17/2023 06/13/2024 999 [id number] Encounter Details Date Type Department Care Team (Latest Contact Info) Description 02/23/2024 8:30 AM EDT Hem/Onc Treatment Hematology/Oncolog y Treatment, [address] [place] [address] [place], Chair 4 Hem Onc [address] [address] Encounter for antineoplastic chemotherapy*; Cancer, metastatic to [...] involving multiple sites with positive rheumatoid factor ([facility]) INJECT 125 MG ( ONE SYRINGE ) [...] 07/18/2008 06/01/2019 Overview (07/31/2009): thyroglobulin antibody >3000 [facility] 08/19/200608/10 Overview (08/25/2009): Renamed Per Clinical Trials Billing Project. Pt is a participant in the [facility] (Consortium of Rheumatology Researchers of [place]) national data collection study. For further information please call Dr Temo Castaneda or Kim Ríos, RN, CCRC at [phone] [facility] RESEARCH OTHER*[id number] 08/19/2006 11/06/2009 Overview (08/25/2009): Renamed Per Clinical Trials Billing Project. Pt is a participant in the [facility] (Consortium of Rheumatology Researchers of [place]) national data collection study. For further information please call Dr Temo Castaneda or Kim Ríos RN, CCRC at [phone] Arthritis, rheumatoid 07/01/20062016 Abnormal blood chemistry 05/02/2006 [...] Description 04/05/2024 8:10 AM EST Laboratory Laboratory [facility] [place] [address] [place] [phone] [place], Lab Scenery [address] [facility] [place] [address] 04/05/2024 8:30 AM EST Office Visit Hematology/Oncology [facility] [place] [address] [place] [phone] Monica Ward MD [address] [place] [address] [place] [phone] 04/05/2024 9:00 AM EST Hem/Onc Treatment Hematology/Oncology Treatment, [address] [place], [place] [address] [place], Chair 2 Hem Onc Scenery 200 [facility] [place], [place] [address] 04/06/2024 10:15 AM EST Hem/Onc Treatment Hematology/Oncology Treatment, [address], [place] [address] [place], Chair 5 Hem Onc Scenery 200 [facility] [place], [place] [address] 04/07/2024 8:45 AM EST Hem/Onc Treatment Hematology/Oncology Treatment, [address], [place] [address] [place], Chair 2 Hem Onc Scenery [address] [place] [address] 04/09/2024 9:00 AM EST Immunization/Injecti on Hematology/Oncology Treatment, [address], [place] [address] [place], Chair 4 Hem Onc Scenery [address] [place] [address] 07/14/2024 3:00 PM EST Office Visit Pulmonary Medicine, [facility] [address] [place] [address] Eloy Pond MD [address] [place] [address] 10/15/2024 8:40 AM EDT Office Visit Rheumatology [address] [place] [address] Samy Russo MD [address] [facility], [place] [address] Health Maintenance Due Date Last Done Comments [...] this encounter Medical Devices Implanted Type Area Visual Educator Device Identifier Shelf Expiration Date Model / Serial / Lot Port Implant W8f Poly Cath - [id number] Implanted:Qty : 1 on 12/31/2023 by Sin Burroughs MD at OR [facility] Right: Chest CR BARD : PERIPHERAL VASCULAR [id number] 10/09/2024 [id number] / / [id number] documented as of this encounter Visit Diagnoses [...] mL documented in this encounter Care Teams Photo Tube Assembler Relationship Specialty Start Date End Date Edel Clay MD [address] [place] [address] [place] [address] PCP - General Family Medicine 03/03/17 documented as of this encounter
--- OUTSIDE RECORDS SUMMARY | 2024-06-12 02:25 | External Medical Summary | Summary of Care ---
Author Name Unknown Organization [facility] Address [address] [place] [address] Phone [phone] Care Team Providers Care Pharmaceutical Service Representative Name Role Phone Edel Clay MD Primary Care Provide r Reason for Visit * Reason Comments Chemotherapy Etoposide D3 * Episode Based Medications (Routine) - Authorized Specialty Diagnoses / Procedures Referred By Contac t Referred To Contact Diagnoses Encounter for antineoplastic chemotherapy Cancer, metastatic to bone (HCC) Metastatic adenocarcinoma to liver (HCC) Small cell lung cancer, right (HCC) Procedures [place] CARBOPLATIN INJECTION NH FOSAPREPITANT INJECTION [place] ETOPOSIDE 10 MG INJ [place] INJ, ATEZOLIZUMAB,10 MG [place] INJECTION, Monica Anderson MD 400 [facility] [place] [address] Phone: tel: fax: Hematology/Oncology Treatment, [address] [place] [address] Phone: tel: fax: Referral ID Status Reason Start Date Expiration Date V isits Requested Visits Authorized [id number] Authorized 12/17/2023 06/13/2024 999 999 Encounter Details Date Type Department Care Team (Latest Contact Info) Description 02/25/2024 1:30 PM EDT Hem/Onc Treatment Hematology/Oncolog y Treatment, [address] [place] [address] Chair [place] 8 Hem Onc [address] [id number] Encounter for antineoplastic chemotherapy*; Cancer, metastatic to [...] 07/18/2008 06/01/2019 Overview (07/31/2009): thyroglobulin antibody >3000 [id number] 08/19/200608/10 Overview (08/25/2009): Renamed Per Clinical Trials Billing Project. Pt is a participant in the [facility] (Consortium of Rheumatology Researchers of [facility]) national data collection study. For further information please call Dr Temo Castaneda or Kim Ríos, RN, CCRC at [phone] [facility] RESEARCH OTHER*[id number] 08/19/2006 11/06/2009 Overview (08/25/2009): Renamed Per Clinical Trials Billing Project. Pt is a participant in the [facility] (Consortium of Rheumatology Researchers of [place]) national data collection study. For further information please call Dr Temo Castaneda or Kim Ríos, RN, CCRC at [phone] Arthritis, rheumatoid 07/01/20062016 Abnormal blood chemistry 05/02/2006 [...] 8:10 AM EST Laboratory Laboratory Dominic Mortensen [place] [address] [place] [address] [place], Lab Scenery [address] [facility] [place] [address] 04/05/2024 8:30 AM EST Office Visit Hematology/Oncology Scenery [place] [address] [place] [address] Monica Ward MD [address] [place] [address] [place] [phone] 04/05/2024 9:00 AM EST Hem/Onc Treatment Hematology/Oncology Treatment, [place] 200 [facility], [place] [address] [place], Chair 2 Hem Onc Scenery [address] [place] [address] 04/06/2024 10:15 AM EST Hem/Onc Treatment Hematology/Oncology Treatment, [address], [place] [address] [place], Chair 5 Hem Onc Scenery [address] [place], [place] [address] 04/07/2024 8:45 AM EST Hem/Onc Treatment Hematology/Oncology Treatment, [address], [place] [address] [place], Chair 2 Hem Onc Scenery [address] [place] [address] 04/09/2024 9:00 AM EST Immunization/Injecti on Hematology/Oncology Treatment, [place] 200 [facility], [place] [address] [place], Chair 4 Hem Onc Scenery [address] [place] [address] 07/14/2024 3:00 PM EST Office Visit Pulmonary Medicine, [address] [place] [address] Eloy Pond MD [address] [facility] [place] [address] 10/15/2024 8:40 AM EDT Office Visit Rheumatology [address] [place] [address] Samy Russo MD [address] [facility] [place] [address] Health Maintenance Due Date Last Done Comments [...] this encounter Medical Devices Implanted Type Area Biomedical Specialist Device Identifier Shelf Expiration Date Model / Serial / Lot Port Implant W8f Poly Cath - [id number] Implanted:Qty : 1 on 12/31/2023 by Sin Burroughs MD at OR [facility] Right: Chest CR BARD : PERIPHERAL VASCULAR [id number] 10/09/2024 [id number] / / [id number] documented as of this encounter Visit Diagnoses [...] mL documented in this encounter Care Teams Pharmaceutical Service Representative Relationship Specialty Start Date End Date Edel Clay MD [address] [place] [address] [place] [address] PCP - General Family Medicine 03/03/17 documented as of this encounter
--- OUTSIDE RECORDS SUMMARY | 2024-06-12 02:25 | External Medical Summary | Summary of Care ---
Author Name Unknown Organization [facility] Address [address] [place] [address] Phone [phone] Care Team Providers Care Elementary Esl Teacher Name Role Phone Edel Clay MD Primary Care Provide r Reason for Visit * Reason Comments Treatment Encounter Details Date Type Department Care Team (Late st Contact Info) Description 03/15/2024 8:30 AM EST Office Visit Hematology/Oncology [facility] [place] [address] [place] [address] Monica Ward MD [address] [place] [address] Encounter for antineoplastic chemotherapy*; Cancer, [...] 07/18/2008 06/01/2019 Overview (07/31/2009): thyroglobulin antibody >3000 [id number] 08/19/200608/10 Overview (08/25/2009): Renamed Per Clinical Trials Billing Project. Pt is a participant in the [facility] (Consortium of Rheumatology Researchers of [place]) national data collection study. For further information please call Dr Temo Castaneda or Kim Ríos, RN, CCRC at [phone] [facility] RESEARCH OTHER*[id number] 08/19/2006 11/06/2009 Overview (08/25/2009): Renamed Per Clinical Trials Billing Project. Pt is a participant in the [facility] (Consortium of Rheumatology Researchers of [place]) national data collection study. For further information please call Dr Temo Castaneda or Kim Ríos RN, CCRC at [phone] Arthritis, rheumatoid 07/01/20062016 Abnormal blood chemistry 05/02/2006 [...] be secondary to the injection of Pegfilgrastim. L ucent changes in the pelvis from the previously demonstrated hypermetabolic osseous metastasis are appreciated and are unchanged. Healing periosteal reaction at the right lateral 9th rib. Subtle sclerotic focus at the anterolateral aspect of the right 6th rib. Stable treated pelvic lucent bone lesions. 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 Multiple liver lesions, concerning for metastases, employee's representative lesion in the posterior right hepatic [...] on day 4 to treat chemotherapy-induced neutropenia PMH: Patient Active Problem List Diagnosis Acquired hypothyroidism Tobacco use disorder ADVANCE DIRECTIVE INFORMATION Family history of diabetes mellitus Dyslipidemia, goal [...] (Abatacept) INJECT 125 MG ( ONE SYRINGE ) UNDER THE SKIN ONCE A WEEK (Patient not taking: Reported on 02/23/2024) 4 mL 11 Azelastine HCl 137 MCG/SPRAY Nasal Solution SPRAY 2 SPRAYS INTO EACH NOSTRIL IN THE MORNING ANDBEFORE BEDTIME 90 mL 3 Levothyroxine Sodium 100 MCG Oral Tablet (Levoxyl) Take 1 Tablet by mouth daily first thing in the morning. (at least 30 min prior to breakfast or other meds) 90 Tablet 3 Magic Swizzle (Iipuimdcn-Ejsoptxt-Ldplay) oral solution Swish and spit 15 mL in the morning and15 mL before bedtime. 120 mL 1 Multivitamins [...] 3, and 4 of chemo. 8 Tablet 0 Current Facility-Administered Medications Medication Dose Route Frequency Provider Last Rate Last Admin Albuterol Sulfate (Proventil) (2.5 MG/3ML) 0.083% inhalation solution 2.5 mg 2.5 mg Nebulizer PRN 2.5 mg at 01/15/24 1445 Albuterol Sulfate (Proventil) (5 MG/ML) 0.5% *conc* inhalation solution 2.5 mg 2.5 mg NebulizerPRN Review of patient's allergies indicates: Allergen Reactions Clindamycin Hives Codeine "Stupor", drowsy Other Allergy (See Comments) Perfumes, hairspray, candles, etc. Sinus infections, headaches, very sensitive. 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 She is due to receive cycle 4 of the above chemotherapy on 02/23/2024, tolerating treatment very well Metastatic adenocarcinoma to liver (HCC) Cancer, metastatic to bone (HCC)-continue Zometa PLAN OF CARE DISCUSSED WITH PATIENT ON 02/23/2024: Follow Up: Return in about 3 weeks (around 03/15/2024) for Clinic Visit and for cycle #5 chemo 03/15/2024: Clinic Visit and for cycle #5 chemo The PET scan shows excellent response to the 3 cycles of chemotherapy Continue the current chemotherapy for a total of 6 cycles of the current chemotherapy will be needed to achieve clinical remission. You are scheduled to receive cycle 4 today on 02/23/2024 Continue Zometa Q 6 weeks-next dose due on 03/17/2024 Start taking Citracal 1 tablet p.o. twice daily. Returns for follow-up after the next cycle of chemotherapy in 3 weeks. The patient verbalized understanding and agreement with the above plan of care. There are no diagnoses linked to this encounter. Monica Ward MD documented in this encounter Nursing Notes * Diya Raza MED ASSIST - 03/15/2024 8:39 AM EST [...] Description 04/05/2024 8:10 AM EST Laboratory Laboratory [facility] [place] [address] [place] [address] [phone] Diana Mortensen [address] [place] [address] 04/05/2024 8:30 AM EST Office [facility] [place] [address] [place] [phone] Monica [facility] [address] [facility] [place] [phone] 04/05/2024 9:00 AM EST Hem/Onc Treatment Hematology/Oncology Treatment, [place] 200 [facility], [place] [phone] [place], Chair 2 Hem Onc Scenery [address] [place], [place] [address] 04/06/2024 10:15 AM EST Hem/Onc Treatment Hematology/Oncology Treatment, [address], [place] [phone] [place], Chair 5 Hem Onc Scenery [address] [place], [place] [address] 04/07/2024 8:45 AM EST Hem/Onc Treatment Hematology/Oncology Treatment, [address], [place] [phone] [place], Chair 2 Hem Onc Scenery [address] [place], [place] [address] 04/09/2024 9:00 AM EST Immunization/Injecti on Hematology/Oncology Treatment, [address], [place] [phone] [place], Chair 4 Hem Onc Scenery [address] [place], [place] [address] 07/14/2024 3:00 PM EST Office Visit Pulmonary Medicine, [facility] 132 [facility] [place] [address] Eloy Pond MD [address] [place] [phone] 10/15/2024 8:40 AM EDT Office Visit Rheumatology [address] [place] [address] Samy Russo MD [address] [employer] [place] [address] Health Maintenance Due Date Last Done Comments [...] this encounter Medical Devices Implanted Type Area Rn Social Services Device Identifier Shelf Expiration Date Model / Serial / Lot Port Implant W8f Poly Cath - [id number] Implanted:Qty : 1 on 12/31/2023 by Sin Burroughs MD at [facility] Right: Chest CR BARD : PERIPHERAL VASCULAR [id number] 10/09/2024 [id number] / / [id number] documented as of this encounter Visit Diagnoses Diagnosis Encounter for antineoplastic chemotherapy- Primary Cancer, metastatic to bone (HCC) Secondary malignant neoplasm of bone and bone marrow Metastatic adenocarcinoma to liver (HCC) 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
--- OUTSIDE RECORDS SUMMARY | 2024-06-12 02:25 | External Medical Summary | Summary of Care ---
Author Name Unknown Organization [facility] Address [address] [place] [address] Phone [phone] Care Team Providers Care Emergency Dispatcher Name Role Phone Edel Clay MD Primary Care Provide r Reason for Visit * Reason Comments Medication Administration Fulphila * Episode Based Medications (Routine) - Authorized Specialty Diagnoses / Procedures Referred By Contac t Referred To Contact Diagnoses Encounter for antineoplastic chemotherapy Cancer, metastatic to bone (HCC) Metastatic adenocarcinoma to liver (HCC) Small cell lung cancer, right (HCC) Procedures [place] CARBOPLATIN INJECTION [place] FOSAPREPITANT INJECTION [place] ETOPOSIDE 10 MG INJ [place] INJ, ATEZOLIZUMAB,10 MG [place] INJECTION, FULMonica Fontanez MD [address] [place], [place] [address] [address] Phone: tel: fax: Hematology/Oncology Treatment, [address] [address] Phone: tel: fax: Referral ID Status Reason Start Date Expiration Date V isits Requested Visits Authorized [id number] Authorized 12/17/2023 06/13/[id number] Encounter Details Date Type Department Care Team (Latest Contact Info) Description 02/26/2024 3:45 PM EDT Immunization/ Injection Hematology/Oncology Treatment, [address] [place] [address] [place], Chair [address] On[address] [place] [address] Encounter for antineoplastic chemotherapy*; Cancer, metastatic [...] 07/18/2008 06/01/2019 Overview (07/31/2009): thyroglobulin antibody >3000 [id number] 08/19/200608/10 Overview (08/25/2009): Renamed Per Clinical Trials Billing Project. Pt is a participant in the [facility] (Consortium of Rheumatology Researchers of [facility]) national data collection study. For further information please call Dr Temo Castaneda or Kim Ríos, RN, CCRC at [phone] [facility] RESEARCH OTHER*[id number] 08/19/2006 11/06/2009 Overview (08/25/2009): Renamed Per Clinical Trials Billing Project. Pt is a participant in the [facility] (Consortium of Rheumatology Researchers of [place]) national data collection study. For further information please call Dr Temo Castaneda or Kim Ríos, RN, CCRC at [phone] Arthritis, rheumatoid 07/01/20062016 Abnormal blood chemistry 05/02/2006 [...] as of this encounter Nursing Notes * Selena Davenport LPN - 02/26/2024 4:02 PM EDT Fulphila administered SQ into the left upper extremity. Patient tolerated injection and will returnin 3 weeks. documented in this encounter Plan of Treatment Upcoming Encounters Date Type Department Care Team (Late st Contact Info) Description 04/05/2024 8:10 AM EST Laboratory Laboratory [facility] [place] [address] [place] [address] [phone] [place] Lab [facility] [address] [place] [address] [address] 04/05/2024 8:30 AM EST Office Visit Hematology/Oncology Dominic Mortensen [place] [address] [place] [phone] Monica Ward MD [address] [place] [address] [place] [address] 04/05/2024 9:00 AM EST Hem/Onc Treatment Hematology/Oncology Treatment, [place] [address] [facility], [place] [phone] [place], Chair 2 Hem Onc Scenery [address] [place], [place] [address] 04/06/2024 10:15 AM EST Hem/Onc Treatment Hematology/Oncology Treatment, [address], [place] [address] [place], Chair 5 Hem Onc Scenery [address] [place], [place] [address] 04/07/2024 8:45 AM EST Hem/Onc Treatment Hematology/Oncology Treatment, [address], [place] [address] [place], Chair 2 Hem Onc Scenery [address] [place], [place] [address] 04/09/2024 9:00 AM EST Immunization/Injecti on Hematology/Oncology Treatment, [address], [place] [phone] [place], Chair 4 Hem Onc Scenery [address] [place], [place] [address] 07/14/2024 3:00 PM EST Office Visit Pulmonary Medicine, [facility] [address] [facility] [place] [address] [facility]ond [facility] [address] [facility] [address] 10/15/2024 8:40 AM EDT Office Visit Rheumatology [address] [place] [phone] Samy Russo MD [address] [facility] [place], [place] [address] Health Maintenance Due Date Last Done Comments [...] this encounter Medical Devices Implanted Type Area Coal Handling Supervisor Device Identifier Shelf Expiration Date Model / Serial / Lot Port Implant W8f Poly Cath - [id number] Implanted:Qty : 1 on 12/31/2023 by Sin Burroughs MD at [facility] Right: Chest CR BARD : PERIPHERAL VASCULAR [id number] 10/09/2024 [id number] / / [id number] documented as of this encounter Visit Diagnoses [...] mg 6 mg, Subcutaneous, ONCE, On Lizbeth 02/26/24 at 1630, For 1 doseIndications:Encounter for antineoplastic chemotherapy,Cancer, metastatic to bone (HCC),Metastatic adenocarcinoma to liver (HCC),Small cell lung cancer, right (HCC) Given 02/26/2024 4:00 PM EDT 6 mg Arm Left Upper documented in this encounter Care Teams Emergency Dispatcher Relationship Specialty Start Date End Date Edel Clay MD [address] [place] [address] [place] [phone] PCP - General Family Medicine 03/03/17 documented as of this encounter
--- OUTSIDE RECORDS SUMMARY | 2024-06-12 02:25 | External Medical Summary | Summary of Care ---
Author Name Unknown Organization [facility] Address [address] [place] [address] Phone [phone] Care Team Providers Care Customer Service Receptionist Name Role Phone Edel Clay MD Primary [...] INJ MA INJ, ATEZOLIZUMAB,10 MG [place] INJECTION, FULMonica Fontanez MD [address] [facility] [place] [address] Anc Hem/Onc [address] [address] Referral ID Status Reason Start Date Expiration Date V isits Requested Visits Authorized [id number] Authorized 12/17/2023 06/13/[phone] Encounter Details Date Type Department Care Team (Latest Contact Info) Description 03/18/2024 4:00 PM EST Immunization/ Injection Hematology/Oncology Treatment, [address] [address] [place], Chair [address] Hem On[address] [place] [address] Encounter for antineoplastic chemotherapy*; Cancer, metastatic to [...] as of this encounter (statuses as of 03/18/2024) Medications Medication Sig Dispensed Refills Start Date End Date Status OMEGA-3 FATTY ACIDS 1000 MG PO CAPS 0 07/22/2006 Active Orencia 125 MG/ML Subcutaneous Solution Prefilled Syringe (Abatacept)Indicatio ns:Rheumatoid arthritis involving multiple sites with positive rheumatoid factor (HCC) INJECT 125 MG ( ONE SYRINGE ) UNDER THE SKIN ONCE A WEEK 4 mL 11 12/25/2022 Active Additional Information Patient not taking.Reported on 02/23/2024 Azelastine HCl 137 MCG/SPRAY Nasal SolutionIndications: Rhinitis, nonallergic SPRAY 2 SPRAYS INTO EACH NOSTRIL IN THE MORNING AND BEFORE BEDTIME 90 mL 3 06/06/2023 Active Levothyroxine Sodium 100 MCG Oral Tablet (Levoxyl)Indications :Acquired hypothyroidism Take 1 Tablet by mouth daily first thing in the morning. (at least 30 min prior to breakfast or other meds) 90 Tablet 3 08/05/2023 Active Magic Swizzle (Lidocaine-Benadryl- Maalox) oral solution Swish and spit 15 mL in the morning and 15 mL before bedtime. 120 mL 1 09/05/2023 Active Multivitamins Oral Capsule MULTIVITAMINS ORAL CAPSULE Active Triamcinolone Acetonide 55 MCG/ACT Nasal Aerosol (Nasacort Allergy 24HR) Active Methotrexate Sodium 2.5 MG Oral Tablet TAKE 6 TABLETS BY MOUTH ONE TIME PER WEEK 78 Tablet 1 10/09/2023 Active Folic Acid 1 MG Oral TabletIndications:Rh eumatoid arthritis involving multiple sites with positive rheumatoid factor (HCC) TAKE 1 TABLET BY MOUTH EVERY DAY 90 Tablet 1 12/01/2023 Active Additional Information Patient not taking.Reported on 02/23/2024 Ventolin HFA 108 (90 Base) MCG/ACT Inhalation Aerosol Solution Inhale 2 Puffs by mouth every 4 hours as needed for Shortness of Breath. 18 g 11 12/04/2023 Active Additional Information Patient not taking.Reported on 02/23/2024 Prochlorperazine Maleate 10 MG Oral Tablet (Compazine)Indicatio ns:Encounter for antineoplastic chemotherapy,Cancer, metastatic to bone (HCC),Metastatic adenocarcinoma to liver (HCC),Small cell lung cancer, right (HCC) Take 1 Tablet by mouth every 6 hours as needed for Nausea. 30 Tablet 5 12/19/2023 Active Lidocaine-Prilocaine 2.5-2.5 % External Cream (Emla)Indications:Sm all cell lung cancer, right (HCC),Metastatic adenocarcinoma to liver (HCC),Cancer, metastatic to bone (HCC) APPLY TO SKIN OVER MEDIPORT & COVER 1HR PRIOR TO ACCESSING. 30 g 1 12/19/2023 Active oxyCODONE-Acetaminop hen 5-325 MG/5ML Oral Solution (Roxicet) Take by mouth every 4 hours as needed. Active dexAMETHasone 4 MG Oral Tablet (Decadron)Indication s:Encounter for antineoplastic chemotherapy,Cancer, metastatic to bone (HCC),Metastatic adenocarcinoma to liver (HCC),Small cell lung cancer, right (HCC) Take 2 Tablets by mouth in the morning. With food on days 2, 3, and 4 of chemo.. 12 Tablet 03/05/2024 Active OLANZapine 10 MG Oral Tablet (zyPREXA)Indications :Encounter for antineoplastic chemotherapy,Cancer, metastatic to bone (HCC),Metastatic adenocarcinoma to liver (HCC),Small cell lung cancer, right (HCC) Take 1 Tablet by mouth at bedtime. On days 1, 2, 3, and 4 of chemo. 8 Tablet 03/05/2024 Active Hospital, Clinic, or Other Facility Administered [...] as of this encounter (statuses as of 03/18/2024) Active Problems Problem Noted Date Diagnosed Date Metastatic adenocarcinoma to liver 12/16/2023 Cancer, metastatic to bone 12/16/2023 Encounter for antineoplastic chemotherapy 2023 Small cell lung cancer, right 12/10/2023 Overview: EBUS 12/04/2023 Positive PET scan with multiple [...] as of this encounter (statuses as of 03/18/2024) Resolved Problems Problem Noted Date Diagnosed Date Resolved Date Chronic rhinitis 09/24/2016 03/03/2017 Recurrent acute sinusitis 09/24/2016 Anxiety state 09/08/2012 06/01/2019 Calculus of gallbladder with out mention of cholecystitis or obstruction 11/22/2011 06/01/2019 Overweight (BMI 25.0-29.9) 08/07/2009 1 07/09/2017 Overview: Per Obesity Taxonomy Dyslipidemia, goal to be determined 04/25/2009 07/31/2009 Overview: Per Lipid Taxonomy. chol 192, hdl 26, trig 403 Thyroiditis 07/18/2008 06/01/2019 Overview: thyroglobulin antibody >3000 [id number] 08/19/200608/10 Overview: Renamed Per Clinical Trials Billing Project. Pt is a participant in the [facility] (Consortium of Rheumatology Researchers of [place]) national data collection study. For further information please call Dr Temo Castaneda or Kim Ríos, RN, CCRC at [phone] [facility] RESEARCH OTHER*[id number] 08/19/2006 11/06/2009 Overview: Renamed Per Clinical Trials Billing Project. Pt is a participant in the [facility] (Consortium of Rheumatology Researchers of [place]) national data collection study. For further information please call Dr Temo Castaneda or Kim Ríos, RN, CCRC at [phone] Arthritis, rheumatoid 07/01/20062016 Abnormal blood chemistry 05/02/2006 Overview: positive rheumatoid factor. Metabolic syndrome 04/29/2006 0 Overview: insulin level 16 ADVANCE DIRECTIVE INFORMATION 02/25/2006 03/15/2024 Overview: No, Advance Directive brochure offered , patient declined. Mixed dyslipidemia 02/06/2006 9 Overview: Per Lipid Taxonomy. chol 192, hdl 26, trig 403 Allergic rhinitis due to pollen 01/30/2006 03/03/2017 Obesity, BMI not known 08/07 Overview: Per Obesity Taxonomy Denture irritation 0 documented as of this encounter (statuses as of 03/18/2024) Immunizations Name Administration Dates Next Due COVID-19 [...] years and over) Not on file 10/28/2023 Sex and Gender Information Value Date Recorded Sex Assigned at Female 01/22/2023 10:53 AM EDT Gender Identity Female 01/22/2023 10:53 AM EDT Sexual Orientation Straight 01/22/2023 10 :53 AM EDT Job Start Date Occupation Industry Not on file Not on file Not [...] Description 04/05/2024 8:10 AM EST Laboratory Laboratory [facility] [place] [address] [facility] [place] [phone] [place], Lab [address] [place] [address] 04/05/2024 8:30 AM EST Office Visit Hematology/Oncology [facility] [place] [address] [place] [address] [place] [phone] Monica Ward MD [address] [place], [place] [address] [address] 04/05/2024 9:00 AM EST Hem/Onc Treatment Hematology/Oncology Treatment, [place] [address] [facility] [place] [phone] [place], Chair 2 Hem Onc [place] [address] [place] [address] 04/06/2024 10:15 AM EST Hem/Onc Treatment Hematology/Oncology Treatment, [place] [address] [facility] [place] [phone] [place], Chair 5 Hem Onc Scen[place] [address] [place] [address] 04/07/2024 8:45 AM EST Hem/Onc Treatment Hematology/Oncology Treatment, [place] [address] [place] [phone] [place], Chair 2 Hem Onc Scenery 200 [facility] [place] [address] 04/09/2024 9:00 AM EST Immunization/Injecti on Hematology/Oncology Treatment, [place] [address] [place] [address] [place], Chair 4 Hem Onc Scenery [address] [facility] [place] [address] 07/14/2024 3:00 PM EST Office Visit Pulmonary Medicine, [facility] [address] [facility] [place] [address] Eloy Pond MD [address] [facility] [address] 10/15/2024 8:40 AM EDT Office Visit Rheumatology [address] [place] [phone] Samy Russo MD [address] [facility] [place] [address] Health Maintenance Due Date Last Done Comments [...] this encounter Medical Devices Implanted Type Area Marketing Sales Supervisor Device Identifier Shelf Expiration Date Model / Serial / Lot Port Implant W8f Poly Cath - [id number] Implanted:Qty : 1 on 12/31/2023 by Sin Burroughs MD at OR [facility] [place] Right: Chest CR BARD : PERIPHERAL VASCULAR [id number] 10/09/2024 [id number] / / [id number] documented as of this encounter Visit Diagnoses [...] On Lizbeth 03/18/24 at 1645, For 1 dose Given 03/18/2024 4:14 PM EST 6 mg Arm L eft Upper documented in this encounter Care Teams Customer Service Receptionist Relationship Specialty Start Date End Date Edel Clay MD [address] [place] [address] [place] [address] PCP - General Family Medicine 03/03/17 documented as of this encounter
--- OUTSIDE RECORDS SUMMARY | 2024-06-12 02:26 | External Medical Summary ---
Author Name Unknown Address Unknown Organization K09:[facility] [place] [address] Laboratory Report Ordering Provider Test Date Status AKILAH ROMERO 03/15/2024 07:58:58 Final Observation Date Value Abnormality Reference (Units ) Status Nucleated erythrocytes/100 leukocytes [Ratio] in Blood by Automated count 03/15/2024 07:58:58 Final Performing Location [facility] [place] [place] [address]
--- OUTSIDE RECORDS SUMMARY | 2024-06-12 02:26 | External Medical Summary | Summary of Care ---
Author Name Unknown Organization [facility] Address [address] [place] [address] Phone [phone] Care Team Providers Care Chha Name Role Phone Edel Clay MD Primary Care Provide r Reason for Visit * Reason Onset Date Comments Advice 03/10/2024 Encounter Details Date Type Department Care Team (Late st Contact Info) Description 03/10/2024 Telephone Hematology/Oncology [facility] [place] [address] [place] [address] Services, Scheduling [address] [place] [address] Advice Allergies Active Allergy Reactions Criticality Noted Date Comments Clindamycin Hives 08/26/2014 Codeine 10/25/2011 "Stupor", drowsy Other Allergy (See Comments) 024 Perfumes, hairspray, candles, etc. Sinus infections, headaches, very sensitive. Penicillins 01/30/2006 Hives ans swelling Sulfa Antibiotics 06/29/2010 Sick to her stomach documented as of this encounter (statuses as of 03/10/2024) Medications Medication Sig Dispensed Refills Start Date [...] as of this encounter (statuses as of 03/10/2024) Active Problems Problem Noted Date Diagnosed Date [...] 11/22/2011 Dyslipidemia, goal LDL below 130 07/31/2009 ADVANCE DIRECTIVE INFORMATION 02/25/2006 Overview: No, Advance Directive brochure offered , patient declined. Acquired hypothyroidism Tobacco use disorder Family history of diabetes mellitus documented as of this encounter (statuses as of 03/10/2024) Resolved Problems Problem Noted Date Diagnosed Date [...] Thyroiditis 07/18/2008 06/01/2019 Overview: thyroglobulin antibody >3000 [id number] 08/19/200608/10 Overview: Renamed Per Clinical Trials Billing Project. Pt is a participant in the [facility] (Consortium of Rheumatology Researchers of [place]) national data collection study. For further information please call Dr Temo Castaneda or Kim Ríos, RN, CCRC at [phone] [facility] RESEARCH OTHER*[id number] 08/19/2006 11/06/2009 Overview: Renamed Per Clinical Trials Billing Project. Pt is a participant in the [facility] (Consortium of Rheumatology Researchers of [place]) national data collection study. For further information please call Dr Temo Castaneda or Kim Ríos, RN, CCRC at [phone] Arthritis, rheumatoid 07/01/20062016 Abnormal blood chemistry 05/02/2006 Overview: positive rheumatoid factor. Metabolic syndrome 04/29/2006 0 Overview: insulin level 16 Mixed dyslipidemia 02/06/2006 9 Overview: Per Lipid Taxonomy. chol 192, hdl 26, trig 403 Allergic rhinitis due to pollen 01/30/2006 03/03/2017 Obesity, BMI not known 08/07 Overview: Per Obesity Taxonomy Denture irritation 0 documented as of this encounter (statuses as of 03/10/2024) Immunizations Name Administration Dates Next Due COVID-19 [...] encounter Miscellaneous Notes * Telephone Encounter - Kike Alvarez RN - 03/10/2024 8:37 AM EDT Received call from patient. She states her was recently ill with a viral illness and believes she may have received it from him. States its more in her throat with a slight cough, ran a feverof 100.6 last night, used Naproxen for this with effect and was able to sleep. Advised her to push fluids + electrolytes for the next 24/48 hours, eat what she can and to get rest. If fever goes to 103 she should be seen in the ER. She can alternate Tylenol and Ibuprofren as recent liver/kidney function labs were normal. No more than 3,000mg Tylenol daily. She verbalized understanding and will notify our office of any worsening changes. * Telephone Encounter - Chele Wills OSA - 03/10/2024 8:32 AM EDT What is the reason for call? Fever, chills, flu What Clinic is the patient trying to reach? [facility] - see [facility]- click on the Specialty[facility] Call was warm transferred to Kike Alvarez documented in this encounter Plan of Treatment Upcoming Encounters Date Type Department Care Team (Late st Contact Info) Description 03/15/2024 7:50 AM EST Laboratory Laboratory [facility] [address] [place] [phone] [place], Lab [address] [facility] [place] [address] 03/15/2024 8:30 AM EST Office Visit Hematology/Oncology [facility] [address] [place] [phone] Monica Ward MD [address] [place], [place] [address] [phone] 03/15/2024 9:00 AM EST Hem/Onc Treatment Hematology/Oncology [address] [phone] [place], Chair 5 Hem Onc [address] [place] [address] 03/16/2024 8:45 AM EST Hem/Onc Treatment Hematology/Oncology Treatment, [address] [phone] [place], Chair 2 Hem Onc [address] [place] [address] 03/17/2024 12:30 PM EST Hem/Onc Treatment Hematology/Oncology Treatment, [address] [place] [address] [place], Chair 7 Hem Onc Scenery [address] [place], [place] [address] 07/14/2024 3:00 PM EST Office Visit Pulmonary Medicine, [facility] [address] [place] [address] Eloy Pond MD [address] [facility] [place] [address] 10/15/2024 8:40 AM EDT Office Visit Rheumatology [address] [place] [phone] Samy Russo MD [address] [place] [address] Health Maintenance Due Date Last Done Comments [...] 2024 01/18/2022, 06/09/2021, 12/27/2020, Additional history exists Influenza Vaccine (FLU shot) (#1) 2024 02/12/2022, 02/09/2021, 03/02/2020, Additional history exists HbA1c 08/06/2024 08/07/2023 Mammogram 09/11/2024 09/12/2023, 08/11, 08/29/2020, Additional history exists TSH 02/22/2025 02/23/2024, 01/11, 08/07/2023, Additional history exists Lipid Panel 05/19/2025 05/19/2020, 05/13, 03/07/2017, Additional history exists DTap/Tdap Vaccines (4 - Td or Tdap) 08/18/2028 08/18/2018, 02/10/2008, 02/10/2008 Pneumococcal Vaccine: Pediatrics (0 to 5 Years) and At-Risk Patients (6 to 64 Years) (4 of 4 - PPSV23 or PCV20) 2032 05/19/2020, 10/29/2011, 10/25/2011, Additional history exists HPV (Gardasil) Vaccine Aged Out No lo nger eligible based on patient's age to complete this topic MENINGOCOCCAL (MENACTRA/MENVEO) Aged Out No longer eligible based on patient's age to complete this topic documented as of this encounter Medical Devices Implanted Type Area Terrazzo Worker Helper Device Identifier Shelf Expiration Date Model / Serial / Lot Port Implant W8f Poly Cath - [id number] Implanted:Qty : 1 on 12/31/2023 by Sin Burroughs MD at OR [facility] Right: Chest CR BARD : PERIPHERAL VASCULAR [id number] 10/09/2024 [id number] / / [id number] documented as of this encounter Care Teams Chha Relationship Specialty Start Date End Date Edel Clay MD [address] [place] [address] [place] [phone] PCP - General Family Medicine 03/03/17 documented as of this encounter
--- OUTSIDE RECORDS SUMMARY | 2024-06-12 02:26 | External Medical Summary | Summary of Care ---
Author Name Unknown Organization [facility] Address [address] [place] [address] Phone [phone] Care Team Providers Care All Round Logger Name Role Phone Edel Clay MD Primary Care Provide r Encounter Details Date Type Department Care Team (Late st Contact Info) Description 03/16/2024 Orders Only Hematology/Oncology, [facility] [address] [place] [address] Monica Ward MD [address] [place] [address] Allergies Active Allergy Reactions Criticality Noted Date Comments Clindamycin Hives 08/26/2014 Codeine 10/25/2011 "Stupor", drowsy Other Allergy (See Comments) 024 Perfumes, hairspray, candles, etc. Sinus infections, headaches, very sensitive. Penicillins 01/30/2006 Hives ans swelling Sulfa Antibiotics 06/29/2010 Sick to her stomach documented as of this encounter (statuses as of 03/17/2024) Medications Medication Sig Dispensed Refills Start Date [...] as of this encounter (statuses as of 03/17/2024) Active Problems Problem Noted Date Diagnosed Date [...] as of this encounter (statuses as of 03/17/2024) Resolved Problems Problem Noted Date Diagnosed Date [...] Thyroiditis 07/18/2008 06/01/2019 Overview: thyroglobulin antibody >3000 [id number] 08/19/200608/10 Overview: Renamed Per Clinical Trials Billing Project. Pt is a participant in the [facility] (Consortium of Rheumatology Researchers of [place]) national data collection study. For further information please call Dr Temo Castaneda or Kim Ríos, RN, CCRC at [phone] [facility] RESEARCH OTHER*[id number] 08/19/2006 11/06/2009 Overview: Renamed Per Clinical Trials Billing Project. Pt is a participant in the [facility] (Consortium of Rheumatology Researchers of [place]) national data collection study. For further information please call Dr Temo Castaneda or Kim Ríos, RN, CCRC at [phone] Arthritis, rheumatoid 07/01/20062016 Abnormal blood chemistry 05/02/2006 [...] as of this encounter (statuses as of 03/17/2024) Immunizations Name Administration Dates Next Due COVID-19 [...] Care Team (Late st Contact Info) Description 03/18/2024 4:00 PM EST Immunization/Injecti on Hematology/Oncology Treatment, [place] [address] [place] [address] [place], Chair 10 Hem Onc [facility] [address] [place] [address] 04/05/2024 8:10 AM EST Laboratory Laboratory [facility] [place] [address] [place] [phone] [place], Lab Scenery [address] [facility] [place] [address] 04/05/2024 8:30 AM EST Office Visit Hematology/Oncology Scenery [place] [address] [place], [place] [phone] Monica Ward [facility] [address] [facility] [address] 04/05/2024 9:00 AM EST Hem/Onc Treatment Hematology/Oncology Treatment, [address], [place] [phone] [place], Chair 2 Hem Onc Scenery 200 [facility] [place], [place] [address] 04/06/2024 10:15 AM EST Hem/Onc Treatment Hematology/Oncology Treatment, [address], [place] [phone] [place], Chair 5 Hem Onc Scenery 200 [facility] [place], [place] [address] 04/07/2024 8:45 AM EST Hem/Onc Treatment Hematology/Oncology Treatment, [address], [place] [phone] [place], Chair 2 Hem Onc Scenery 200 [facility] [place], [place] [address] 04/09/2024 9:00 AM EST Immunization/Injecti on Hematology/Oncology Treatment, [address], [place] [phone] [place], Chair 4 Hem Onc Scenery [address] [place], [place] [address] 07/14/2024 3:00 PM EST Office Visit Pulmonary Medicine, [facility] [address] [facility] [place] [address] Eloy Pond MD [address] [place] [facility] [place] [address] 10/15/2024 8:40 AM EDT Office Visit Rheumatology [address] [place] [address] Samy Russo MD [address] [place], [place] [address] Health Maintenance Due Date Last Done Comments [...] this encounter Medical Devices Implanted Type Area Product Safety Coordinator Device Identifier Shelf Expiration Date Model / Serial / Lot Port Implant W8f Poly Cath - [id number] Implanted:Qty : 1 on 12/31/2023 by Sin Burroughs MD at OR [facility] Right: Chest CR BARD : PERIPHERAL VASCULAR [id number] 10/09/2024 [id number] / / [id number] documented as of this encounter Care Teams All Round Logger Relationship Specialty Start Date End Date Edel Clay MD [address] [place] [address] [place] [phone] PCP - General Family Medicine 03/03/17 documented as of this encounter
--- OUTSIDE RECORDS SUMMARY | 2024-06-12 02:26 | External Medical Summary | Summary of Care ---
Author Name Unknown Organization [facility] Address [address] [place] [address] Phone [phone] Care Team Providers Care Preschool Lead Teacher Name Role Phone Edel Clay MD Primary Care Provide r Reason for Visit * Reason Comments Chemotherapy C5 D2 Etoposide * Episode Based Medications (Routine) - Authorized Specialty Diagnoses / Procedures Referred By Contac t Referred To Contact Diagnoses Encounter for antineoplastic chemotherapy Cancer, metastatic to bone (HCC) Metastatic adenocarcinoma to liver (HCC) Small cell lung cancer, right (HCC) Procedures [place] CARBOPLATIN INJECTION [place] FOSAPREPITANT INJECTION [place] ETOPOSIDE 10 MG INJ [place] INJ, ATEZOLIZUMAB,10 MG [place] INJECTION, Monica [facility] [address] [facility] [address] Anc Hem/Onc [address] [address] Referral ID Status Reason Start Date Expiration Date V isits Requested Visits Authorized [id number] Authorized 12/17/2023 06/13/2024 999 999 Encounter Details Date Type Department Care Team (Latest Contact Info) Description 03/16/2024 8:45 AM EST Hem/Onc Treatment Hematology/Oncolog y Treatment, [address] [phone] [place], Chair 2 [facility] [address] [place] [address] [place] [address] Encounter for antineoplastic chemotherapy*; Cancer, metastatic [...] as of this encounter (statuses as of 03/16/2024) Medications Medication Sig Dispensed Refills Start Date [...] as of this encounter (statuses as of 03/16/2024) Active Problems Problem Noted Date Diagnosed Date [...] as of this encounter (statuses as of 03/16/2024) Resolved Problems Problem Noted Date Diagnosed Date [...] Thyroiditis 07/18/2008 06/01/2019 Overview: thyroglobulin antibody >3000 [id number] 08/19/200608/10 Overview: Renamed Per Clinical Trials Billing Project. Pt is a participant in the [facility] (Consortium of Rheumatology Researchers of [place]) national data collection study. For further information please call Dr Temo Castaneda or Kim Ríos, RN, CCRC at [phone] [facility] RESEARCH OTHER*[id number] 08/19/2006 11/06/2009 Overview: Renamed Per Clinical Trials Billing Project. Pt is a participant in the [facility] (Consortium of Rheumatology Researchers of [place]) national data collection study. For further information please call Dr Temo Castaneda or Kim Ríos, RN, CCRC at [phone] Arthritis, rheumatoid 07/01/20062016 Abnormal blood chemistry 05/02/2006 [...] as of this encounter (statuses as of 03/16/2024) Immunizations Name Administration Dates Next Due COVID-19 [...] Care Team (Late st Contact Info) Description 03/17/2024 12:30 PM EST Hem/Onc Treatment Hematology/Oncology Treatment, [place] [address] [place] [phone] [place], Chair 7 Hem Onc Scenery 200 [facility] [place] [address] 04/05/2024 8:10 AM EST Laboratory Laboratory [facility] [place] [address] [place] [phone] [place], Lab Scenery 200 [facility] [place] [address] 04/05/2024 8:30 AM EST Office Visit Hematology/Oncology [facility] [place] [address] [place] [phone] Monica Ward MD [address] [place] [address] 04/05/2024 9:00 AM EST Hem/Onc Treatment Hematology/Oncology Treatment, [place] 200 [facility] [place] [facility] [place] [phone] [place], Chair 2 Hem Onc Scenery [address] [place], [place] [address] 04/06/2024 10:15 AM EST Hem/Onc Treatment Hematology/Oncology Treatment, [address] [place] [phone] [place], Chair 5 Hem Onc Scenery [address] [place], [place] [address] 04/07/2024 8:45 AM EST Hem/Onc Treatment Hematology/Oncology Treatment, [address], [place] [phone] [place], Chair 2 Hem Onc Scenery [address] [place], [place] [address] 04/09/2024 9:00 AM EST Immunization/Injecti on Hematology/Oncology Treatment, [address], [place] [phone] [place], Chair 4 Hem Onc Scenery [address] [place], [place] [address] 07/14/2024 3:00 PM EST Office Visit Pulmonary Medicine, [facility] 132 [facility] [place] [address] Eloy Pond MD [address] [facility] [place] [address] 10/15/2024 8:40 AM EDT Office Visit Rheumatology [address] [place] [phone] Samy Russo MD [facility]0 [facility] [place], [place] [address] Health Maintenance Due Date Last Done Comments [...] encounter Medical Devices Implanted Type Area Senior Information Developer Device Identifier Shelf Expiration Date Model / Serial / Lot Port Implant W8f Poly Cath - [id number] Implanted:Qty : 1 on 12/31/2023 by Sin Burroughs MD at [facility] Right: Chest CR BARD : PERIPHERAL VASCULAR [id number] 10/09/2024 [id number] / / [id number] documented as of this encounter Visit Diagnoses [...] ONCE PRN Other, Hypersensitivity Reaction, Starting on Fri03/16/24 at 0910, Until Fri03/17/24 at 0909, For 24 hours EPINEPHrine 1 MG/ML inj 0.3 mg 0.3 mg, Intramuscular, ONCE PRN Other, Hypersensitivity Reaction or Anaphylaxis, Starting on Fri03/16/24 at 0910, Until Fri03/17/24 at 0909, For 24 hours hEParin 100 UNIT/ML Lock Flush inj 500 Units 500 Units (5 mL), IV Lock, PRN Other, IV Flush, Starting on Fri03/16/24 at 0910, Until Fri03/17/24 at 0909, For 24 hours, Do not flush if lock, PICC, or central line not in place; IV infusing or unable to flush. Given 03/16/2024 11:11 AM EST 500 Units Hydrocortisone Sod Suc (PF) (Solu-Cortef) inj 100 mg 100 mg, IV Push, ONCE PRN Other, Hypersensitivity Reaction, Starting on Fri03/16/24 at 0910, Until Fri03/17/24 at 0909, For 24 hours LORAzepam (Ativan) tab 0.5 mg 0.5 mg, Oral, ONCE PRN Anxiety, Nausea, Starting on Fri03/16/24 at 1015, Until Discontinued NSS infusion Intravenous, at 50 mL/hr, PRN, Starting on Fri03/16/24 at 1015, Until Discontinued, Maintenance line Start Infusion 03/16/2024 9:25 AM EST 50 mL/hr oxygen GAS Inhalation, OXYGEN, First dose on Fri03/16/24 at 0945, Until Discontinued, Device/Managed by: Low Flow Device, [...] saturation is greater than or equal to 93% sodium chloride 0.9 % flush central line 10 mL 10 mL, IV Push, PRN Other, IV Flush, Starting on Fri03/16/24 at 0910, Until Fri03/17/24 at 0909, For 24 hours, Do not flush if lock, PICC, or central line not in place; IV infusing or unable to flush. Given 03/16/2024 11:11 AM EST 10 mL Inactive Administered Medications [...] administer through 0.22 micron low protein binding filter. Start Infusion 03/16/2024 9:46 AM EST 190 mg 519.5 mL/hr ondansetron (Zofran) tab 8 mg 8 mg, Oral, ONCE, On Fri03/16/24 at 0930, For 1 dose, Give 30 minutes prior to chemotherapy. Given 03/16/2024 9:26 AM EST 8 mg documented in this encounter Care Teams Preschool Lead Teacher Relationship Specialty Start Date End Date Edel Clay MD [address] [place] [address] [place] [address] PCP - General Family Medicine 03/03/17 documented as of this encounter
--- OUTSIDE RECORDS SUMMARY | 2024-06-12 02:26 | External Medical Summary | Summary of Care ---
Author Name Unknown Organization [facility] Address [address] [place] [address] Phone [phone] Care Team Providers Care Refrigerating Engineer Head Name Role Phone Edel Clay MD Primary [...] Small cell lung cancer, right (HCC) Procedures [place] CARBOPLATIN INJECTION [place] FOSAPREPITANT INJECTION [place] ETOPOSIDE 10 MG INJ [place] INJ, ATEZOLIZUMAB,10 MG [place] INJECTION, Monica Anderson MD [address] [place] [address] [place] [address] Anc Hem/Onc Scenery [address] [address] Referral ID Status Reason Start Date Expiration Date V isits Requested Visits Authorized [id number] Authorized 12/17/2023 06/13/2024 999 999 Encounter Details Date Type Department Care Team (Latest Contact Info) Description 03/15/2024 9:00 AM EST Hem/Onc Treatment Hematology/Oncolog y Treatment, [address] [address] [place] Chair 5 Hem Onc Scenery [address] [place] [address] [place] [address] Encounter for antineoplastic chemotherapy*; Cancer, metastatic [...] as of this encounter (statuses as of 03/15/2024) Medications Medication Sig Dispensed Refills Start Date [...] as of this encounter (statuses as of 03/15/2024) Active Problems Problem Noted Date Diagnosed Date [...] as of this encounter (statuses as of 03/15/2024) Resolved Problems Problem Noted Date Diagnosed Date [...] Thyroiditis 07/18/2008 06/01/2019 Overview: thyroglobulin antibody >3000 [id number] 08/19/200608/10 Overview: Renamed Per Clinical Trials Billing Project. Pt is a participant in the [facility] (Consortium of Rheumatology Researchers of [facility]) national data collection study. For further information please call Dr Temo Castaneda or Kim Ríos, RN, CCRC at [phone] [facility] RESEARCH OTHER*[id number] 08/19/2006 11/06/2009 Overview: Renamed Per Clinical Trials Billing Project. Pt is a participant in the [facility] (Consortium of Rheumatology Researchers of [facility]) national data collection study. For further information please call Dr Temo Castaneda or Kim Ríos, RN, CCRC at [phone] Arthritis, rheumatoid 07/01/20062016 Abnormal blood chemistry 05/02/2006 Overview: positive rheumatoid factor. Metabolic syndrome 04/29/2006 0 Overview: insulin level 16 Mixed dyslipidemia 02/06/2006 9 Overview: Per Lipid Taxonomy. chol 192, hdl 26, trig 403 Allergic rhinitis due to pollen 01/30/2006 03/03/2017 Obesity, BMI not known 08/07 Overview: Per Obesity Taxonomy Denture irritation 0 documented as of this encounter (statuses as of 03/15/2024) Immunizations Name Administration Dates Next Due COVID-19 [...] Team (Late st Contact Info) Description 03/16/2024 8:45 AM EST Hem/Onc Treatment Hematology/Oncology [address], [address] [phone] [place], Chair 2 Hem Onc Scenery [address] [place] [address] [place] [address] 03/17/2024 12:30 PM EST Hem/Onc Treatment Hematology/Oncology Treatment, [address] [address] [place], Chair 7 Hem Onc [facility] [address] [place] [address] [place] [address] 04/05/2024 8:10 AM EST Laboratory Laboratory [facility] [address] [place] [address] [place], Lab [facility] 200 [facility] [place] [address] 04/05/2024 8:30 AM EST Office Visit Hematology/Oncology [facility] [address] [place] [phone] Monica Ward MD [address] [place] [address] [place] [address] 04/05/2024 9:00 AM EST Hem/Onc Treatment Hematology/Oncology Treatment, [place] 200 [facility], [place] [phone] [place], Chair 2 Hem Onc Scenery 200 [facility] [place], [place] [address] 04/06/2024 10:15 AM EST Hem/Onc Treatment Hematology/Oncology Treatment, [place] 200 [facility], [place] [phone] [place], Chair 5 Hem Onc Scenery 200 [facility] [place], [place] [address] 04/07/2024 8:45 AM EST Hem/Onc Treatment Hematology/Oncology Treatment, [address], [place] [phone] [place], Chair 2 Hem Onc Scenery 200 [facility] [place], [place] [address] 04/09/2024 9:00 AM EST Immunization/Injecti on Hematology/Oncology Treatment, [address], [place] [phone] [place], Chair 4 Hem Onc Scenery 200 [facility] [place], [place] [address] 07/14/2024 3:00 PM EST Office Visit Pulmonary Medicine, [facility] [address] [facility] [place] [address] Eloy Pond MD [address] [facility] [place] [address] 10/15/2024 8:40 AM EDT Office Visit Rheumatology [address] [place] [address] Samy Russo MD [address] [facility] [place], [place] [address] Health Maintenance Due Date Last Done Comments [...] this encounter Medical Devices Implanted Type Area Projection Engineer Device Identifier Shelf Expiration Date Model / Serial / Lot Port Implant W8f Poly Cath - [id number] Implanted:Qty : 1 on 12/31/2023 by Sin Burroughs MD at OR [facility] Right: Chest CR BARD : PERIPHERAL VASCULAR [id number] 10/09/2024 [id number] / / [id number] documented as of this encounter Visit Diagnoses [...] ONCE PRN Other, Hypersensitivity Reaction, Starting on Fri03/15/24 at 0939, Until Fri03/16/24 at 0938, For 24 hours EPINEPHrine 1 MG/ML inj 0.3 mg 0.3 mg, Intramuscular, ONCE PRN Other, Hypersensitivity Reaction or Anaphylaxis, Starting on Fri03/15/24 at 0939, Until Fri03/16/24 at 0938, For 24 hours hEParin 100 UNIT/ML Lock Flush inj 500 Units 500 Units (5 mL), IV Lock, PRN Other, IV Flush, Starting on Fri03/15/24 at 0939, Until Fri03/16/24 at 0938, For 24 hours, Do not flush if lock, PICC, or central line not in place; IV infusing or unable to flush. Given 03/15/2024 12:53 PM EST 500 Units Hydrocortisone Sod Suc (PF) (Solu-Cortef) inj 100 mg 100 mg, IV Push, ONCE PRN Other, Hypersensitivity Reaction, Starting on Fri03/15/24 at 0939, Until Fri03/16/24 at 0938, For 24 hours LORAzepam (Ativan) tab 0.5 mg 0.5 mg, Oral, ONCE PRN Anxiety, Nausea, Starting on Fri03/15/24 at 1045, Until Discontinued NSS infusion Intravenous, at 50 mL/hr, PRN, Starting on Fri03/15/24 at 1045, Until Discontinued, Maintenance line Start Infusion 03/15/2024 9:40 AM EST 50 mL/hr oxygen GAS Inhalation, OXYGEN, First dose on Fri03/15/24 at 1015, Until Discontinued, Device/Managed by: Low Flow Device, [...] Flush, Starting on Fri03/15/24 at 0939, Until Fri03/16/24 at 0938, For 24 hours, Do not flush if lock, PICC, or central line not in place; IV infusing or unable to flush. Given 03/15/2024 12:53 PM EST 10 mL Inactive Administered Medications - up to 3 most recent administrations Medication Order MAR Action Action Date Dose Rate Site Atezolizumab (Tecentriq) 1,200 mg in NSS 250 mL infusion 1,200 mg, IV Piggyback, ONCE, 1 dose, On Fri03/15/24 at 1030, Administer over 60 Minutes, Administer first infusion over 60 minutes and if tolerated, subsequent doses may be infused over 30 minutes. Start Infusion 03/15/2024 10:26 AM EST 1,200 mg 550 mL/hr CARBOplatin (Paraplatin) 483 mg in D5W 250 mL infusion 483 mg (rounded from 482.5 mg, Target AUC = 5), IV Piggyback, at 510 mL/hr Administer over 30 Minutes, PROTECT FROM LIGHT (Max Creatinine Clearance at 125 ml/min for calculating AUC dose), ONCE, 1 dose, On Fri03/15/24 at 1215 Start Infusion 03/15/2024 11:08 AM EST 483 [...] micron low protein binding filter. Start Infusion 03/15/2024 11:47 AM EST 190 mg 519.5 mL/hr Fosaprepitant Dimeglumine (Emend) 150 mg, ondansetron (Zofran) 16 mg, dexamethasone sodium phosphate 12 mg in NSS 250 mL Infusion 150 mg, IV Piggyback, ONCE, 1 dose, On Fri03/15/24 at 1045, Administer over 30 Minutes, Infuse over 30 minutes. Give 30 minutes prior to chemotherapy. Start Infusion 03/15/2024 9:46 AM EST 150 mg 538.4 mL/hr documented in this encounter Care Teams Refrigerating Engineer Head Relationship Specialty Start Date End Date Edel Clay MD [address] [place] [address] [place] [address] PCP - General Family Medicine 03/03/17 documented as of this encounter
--- OUTSIDE RECORDS SUMMARY | 2024-06-12 02:26 | External Medical Summary ---
Author Name Unknown Address Unknown Organization K01:[facility] [address] [place] [address] Laboratory Report Ordering Provider Test Date Status JUAQUIN JOHNSON 03/15/2024 07:58:58 Final Observation Date Value Abnormality Reference (Units ) Status Phosphate 03/15/2024 07:58:58 2.6 2.5-4.8 (m g/dL) Final Performing Location [facility] - [address] [place] [address]
--- OUTSIDE RECORDS SUMMARY | 2024-06-12 02:26 | External Medical Summary ---
Author Name Unknown Address Unknown Organization K09:[facility] [address] [place] [address] Laboratory Report Ordering Provider Test Date Status AKILAH ROMERO 03/15/2024 07:58:58 Final Observation Date Value Abnormality Reference (Units ) Status BUN 03/15/2024 07:58:58 6 6-20 (mg/dL) Final Creatinine 03/15/2024 07:58:58 0.9 0.5-1.0 (mg/dL) Final Glomerular filtration rate/1.73 sq M.predicted [Volume Rate/Area] in Serum, Plasma or Blood by Creatinine-based formula (CKD-EPI) 03/15/2024 07:58:58 80 >=60 (mL/min) Final eGFR is calculated based on the CKD-EPI 2020 equation. Sodium 03/15/2024 07:58:58 142 135-146 (m mol/L) Final Potassium 03/15/2024 07:58:58 3.9 3.5-5.1 (m mol/L) Final Cl 03/15/2024 07:58:58 106 98-107 (mm ol/L) Final CO2 03/15/2024 07:58:58 25 22-32 (mmo l/L) Final Anion gap 03/15/2024 07:58:58 11 7-15 (mmol /L) Final Glucose 03/15/2024 07:58:58 160 Above high normal 70 -120 (mg/dL) Final Albumin 03/15/2024 07:58:58 3.9 3.8-5.0 (g /dL) Final AST (Aspartate aminotransferase) 03/15/2024 07:58:58 19 10-35 (U/L) Fin al Alk Phos 03/15/2024 07:58:58 104 35-130 (U/ L) Final Bilirubin, Total 03/15/2024 07:58:58 0.2 <=1 .2 (mg/dL) Final Calcium 03/15/2024 07:58:58 9.3 8.4-10.2 ( mg/dL) Final Protein 03/15/2024 07:58:58 6.7 6.0-8.3 (g /dL) Final ALT (Alanine aminotransferase) 03/15/2024 07:58:58 8 Below low normal 10-35 (U/L) Final Performing Location [facility] [place] [address] [place] [address]
--- OUTSIDE RECORDS SUMMARY | 2024-06-12 02:26 | External Medical Summary | Summary of Care ---
Author Name Unknown Organization [facility] Address [address] [place] [address] Phone [phone] Care Team Providers Care Industrial Seamstress Name Role Phone Edel Clay MD Primary Care Provide r Reason for Visit * Reason Comments Outpatient Testing Encounter Details Date Type Department Care Team (Late st Contact Info) Description 03/15/2024 7:50 AM EST Laboratory Laboratory [facility] [address] [place] [address] [facility] Lab Scenery [address] [place] [address] Metastatic adenocarcinoma to liver (HCC) Allergies Active [...] Thyroiditis 07/18/2008 06/01/2019 Overview: thyroglobulin antibody >3000 [id number] 08/19/200608/10 Overview: Renamed Per Clinical Trials Billing Project. Pt is a participant in the CORRO (Consortium of Rheumatology Researchers of [place]) national data collection study. For further information please call Dr Temo Castaneda or Kim Ríos, RN, CCRC at [phone] [facility] RESEARCH OTHER*[id number] 08/19/2006 11/06/2009 Overview: Renamed Per Clinical Trials Billing Project. Pt is a participant in the [facility] (Consortium of Rheumatology Researchers of [place]) national data collection study. For further information please call Dr Temo Castaneda or Kim Ríos, RN, CCRC at [phone] Arthritis, rheumatoid 07/01/20062016 Abnormal blood chemistry 05/02/2006 [...] 03/15/2024 8:30 AM EST Office Visit Hematology/Oncology Dominic Mortensen [place] [address] [place] [address] Monica Ward MD [address] [place] [address] [place] [address] Arrived 03/15/2024 9:00 AM EST Hem/Onc Treatment Hematology/Oncology Treatment, [place] [address] [place] [phone] [place], Chair 5 Hem Onc [place] [address] [place] [address] Arrived 03/16/2024 8:45 AM EST Hem/Onc Treatment Hematology/Oncology Treatment, [place] 200 [place] [place] [address] [place], Chair 2 Hem Onc Scenery 200 [facility] [address] 03/17/2024 12:30 PM EST Hem/Onc Treatment Hematology/Oncology Treatment, [place] 200 [facility], [place] [phone] [place], Chair 7 Hem Onc Scenery 200 [facility] [place] [address] 07/14/2024 3:00 PM EST Office Visit Pulmonary Medicine, [facility] 132 [facility] [place] [address] Eloy Pond MD [address] [facility] [address] 10/15/2024 8:40 AM EDT Office Visit Rheumatology [address] [place] [phone] Samy Russo MD 35[address] [facility] [place], [place] [address] Pending Results Name Type Priority Associated Diagnoses Date /Time TSH WITH FREE T4 IF INDICATED Lab STAT Metastatic adenocarcinoma to liver (HCC) 03/15/2024 7:58 AM EST CBC WITH WBC DIFFERENTIAL Lab STAT Metastatic adenocarcinoma to liver (HCC) 03/15/2024 7:58 AM EST COMPREHENSIVE METABOLIC PANEL Lab STAT Metastatic adenocarcinoma to liver (HCC) 03/15/2024 7:58 AM EST CBC Lab STAT Metastatic adenocarcinoma to liver (HCC) 03/15/2024 7:58 AM EST DIFFERENTIAL, AUTOMATED Lab STAT Metastatic adenocarcinoma to liver (HCC) 03/15/2024 7:58 AM EST Health Maintenance Due Date Last [...] this encounter Medical Devices Implanted Type Area Automotive Design Drafter Device Identifier Shelf Expiration Date Model / Serial / Lot Port Implant W8f Poly Cath - [id number] Implanted:Qty : 1 on 12/31/2023 by Sin Burroughs MD at OR [facility] Right: Chest CR BARD : PERIPHERAL VASCULAR [id number] 10/09/2024 [id number] / / [id number] documented as of this encounter Visit Diagnoses Diagnosis Metastatic adenocarcinoma to liver (HCC) Secondary malignant neoplasm of liver documented in this encounter Care Teams Industrial Seamstress Relationship Specialty Start Date End Date Edel Clay MD [address] [place] [address] [place] [address] PCP - General Family Medicine 03/03/17 documented as of this encounter
--- OUTSIDE RECORDS SUMMARY | 2024-06-12 02:26 | External Medical Summary ---
Author Name Unknown Address Unknown Organization K01:[facility] - [address] [place] [address] Laboratory Report Ordering Provider Test Date Status HEATHERAKILAH 03/15/2024 07:58:58 Final Observation Date Value Abnormality Reference (Units ) Status T4, Free 03/15/2024 07:58:58 1.2 0.9-1.7 (n g/dL) Final Performing Location [facility] - [address] [place] [address]
--- OUTSIDE RECORDS SUMMARY | 2024-06-12 02:26 | External Medical Summary | Summary of Care ---
Author Name Unknown Organization [facility] Address [address] [place] [address] Phone [phone] Care Team Providers Care Geological Scout Name Role Phone Edel Clay MD Primary [...] ATEZOLIZUMAB,10 MG MO INJECTION, Monica Anderson MD [address] [place] [address] [place] [address] Anc Hem/Onc Scenery [address] [place] [address] Referral ID Status Reason Start Date Expiration Date V isits Requested Visits Authorized [id number] Authorized 12/17/2023 06/13/2024 999 999 Encounter Details Date Type Department Care Team (Latest Contact Info) Description 03/17/2024 12:30 PM EST Hem/Onc Treatment Hematology/Oncolog y [address], [address] [address] [place], Chair 7 Hem Onc [address] [address] Malignant neoplasm of upper-outer quadrant [...] Thyroiditis 07/18/2008 06/01/2019 Overview: thyroglobulin antibody >3000 [id number] 08/19/200608/10 Overview: Renamed Per Clinical Trials Billing Project. Pt is a participant in the CORRO (Consortium of Rheumatology Researchers of [place]) national data collection study. For further information please call Dr Temo Castaneda or Kim Ríos, RN, CCRC at [phone] [facility] RESEARCH OTHER*[id number] 08/19/2006 11/06/2009 Overview: Renamed Per Clinical Trials Billing Project. Pt is a participant in the [facility] (Consortium of Rheumatology Researchers of [facility]) national data collection study. For further information please call Dr Temo Castaneda or Kim Ríos, RN, CCRC at [phone] Arthritis, rheumatoid 07/01/20062016 Abnormal blood chemistry 05/02/2006 Overview: positive rheumatoid factor. Metabolic syndrome 04/29/2006 0 Overview: insulin level 16 ADVANCE DIRECTIVE INFORMATION 02/25/2006 03/15/2024 Overview: No, Advance Directive brochure offered , patient declined. Mixed dyslipidemia 02/06/200604/25/ 9 Overview: Per Lipid Taxonomy. chol 192, [...] 4:00 PM EST Immunization/Injecti on Hematology/Oncology Treatment, [place] [address] [place] [phone] [place], Chair 10 Hem Onc Scenery 200 [facility] [place] [address] 04/05/2024 8:10 AM EST Laboratory Laboratory [facility] State Silvia Mortensen 200 [facility] [place] [phone] [place], Lab Scene 200 [facility] [place] [address] 04/05/2024 8:30 AM EST Office Visit Hematology/Oncology Scenery [facility] [address] [place] [phone] Monica Ward MD [address] [place] [address] 04/05/2024 9:00 AM EST Hem/Onc Treatment Hematology/Oncology Treatment, [place] 200 [place] [address] [place], Chair 2 Hem Onc Scenery 200 [facility] [place], [place] [address] 04/06/2024 10:15 AM EST Hem/Onc Treatment Hematology/Oncology Treatment, [place] 200 [facility], [place] [address] Bal[place], Chair 5 Hem Onc Scenery [address] [place], [place] [address] 04/07/2024 8:45 AM EST Hem/Onc Treatment Hematology/Oncology Treatment, [place] 200 [place] [address] [place], Chair 2 Hem Onc Scenery 200 [facility] [place], [place] [address] 04/09/2024 9:00 AM EST Immunization/Injecti on Hematology/Oncology Treatment, [address], [place] [address] [place], Chair 4 Hem Onc Scenery [address] [place] [address] 07/14/2024 3:00 PM EST Office Visit Pulmonary Medicine, [facility] 132 [facility] [place] [address] Eloy Pond MD [address] [place] [facility] [address] 10/15/2024 8:40 AM EDT Office Visit Rheumatology [address] [place] [address] Samy Russo MD [facility] [place] [address] Health Maintenance Due Date Last Done Comments [...] encounter Medical Devices Implanted Type Area Ham Sawyer Device Identifier Shelf Expiration Date Model / Serial / Lot Port Implant W8f Poly Cath - [id number] Implanted:Qty : 1 on 12/31/2023 by Sin Burroughs MD at [facility] Right: Chest CR BARD : PERIPHERAL VASCULAR [id number] 10/09/2024 [id number] / / [id number] documented as of this encounter Results * PHOSPHORUS (03/15/2024 7:58 AM EST) Phosphorus 2.6 2.5 - 4.8 mg/dL 03/17/2024 1:00 PM EST LABORATORY GM Blood Venous blood specimen / Unknown Venipuncture / Unknown 03/15/2024 7:58 AM EST 03/15/2024 7:58 AM EST Sukhjinder Faria MD LAB BLOOD ORDERABLES [facility] [address] [place] [address] documented in this encounter Visit Diagnoses Diagnosis Malignant neoplasm of upper-outer quadrant of right breast in female, estrogen receptor positive (HCC)- Primary Cancer, metastatic to bone (HCC) Secondary malignant neoplasm of bone and bone marrow Small cell lung cancer, right (HCC) Encounter for antineoplastic chemotherapy Metastatic adenocarcinoma to liver (HCC) Secondary malignant neoplasm of liver documented in this encounter Administered Medications Active Administered Medications - up to 3 most recent administrations Medication Order MAR Action Action Date Dose Rate Site diphenhydrAMINE (Benadryl) inj 50 mg 50 mg, IV Push, ONCE PRN Other, Hypersensitivity Reaction, Starting on Fri03/17/24 at 1252, Until Lizbeth 03/18/24 at 1251, For 24 hours EPINEPHrine 1 MG/ML inj 0.3 mg 0.3 mg, Intramuscular, ONCE PRN Other, Hypersensitivity Reaction or Anaphylaxis, Starting on Fri03/17/24 at 1252, Until Lizbeth 03/18/24 at 1251, For 24 hours hEParin 100 UNIT/ML Lock Flush inj 500 Units 500 Units (5 mL), IV Lock, PRN Other, IV Flush, Starting on Fri03/17/24 at 1252, Until Lizbeth 03/18/24 at 1251, For 24 hours, Do not flush if lock, PICC, or central line not in place; IV infusing or unable to flush. Given 03/17/2024 2:36 PM EST 500 Units hEParin 100 UNIT/ML Lock Flush inj 500 Units 500 Units (5 mL), IV Lock, PRN Other, IV Flush, Starting on Fri03/17/24 at 1301, Until Lizbeth 03/18/24 at 1300, For 24 hours, Do not flush if lock, PICC, or central line not in place; IV infusing or unable to flush. Hydrocortisone Sod Suc (PF) (Solu-Cortef) inj 100 mg 100 mg, IV Push, ONCE PRN Other, Hypersensitivity Reaction, Starting on Fri03/17/24 at 1252, Until Lizbeth 03/18/24 at 1251, For 24 hours LORAzepam (Ativan) tab 0.5 mg 0.5 mg, Oral, ONCE PRN Anxiety, Nausea, Starting on Fri03/17/24 at 1400, Until Discontinued NSS infusion Intravenous, at 50 mL/hr, PRN, Starting on Fri03/17/24 at 1400, Until Discontinued, Maintenance line Start Infusion 03/17/2024 12:58 PM EST 50 mL/hr NSS infusion 500 mL, Intravenous, at 50 mL/hr, CONTINUOUS, Starting on Fri03/17/24 at 1415, Until Lizbeth 03/18/24 at 0014 oxygen GAS Inhalation, OXYGEN, First dose on Fri03/17/24 at 1600, Until Discontinued, Device/Managed by: Low [...] is greater than or equal to 93% oxygen GAS Inhalation, OXYGEN, First dose on Fri03/17/24 at 1600, Until Discontinued, Device/Managed by: Low [...] Flush, Starting on Fri03/17/24 at 1252, Until Lizbeth 03/18/24 at 1251, For 24 hours, Do not flush if lock, PICC, or central line not in place; IV infusing or unable to flush. Given 03/17/2024 2:35 PM EST 10 mL Inactive Administered Medications [...] micron low protein binding filter. Start Infusion 03/17/2024 1:30 PM EST 190 mg 519.5 mL/hr ondansetron (Zofran) tab 8 mg 8 mg, Oral, ONCE, On Fri03/17/24 at 1315, For 1 dose, Give 30 minutes prior to chemotherapy. Given 03/17/2024 1:02 PM EST 8 mg Zoledronic Acid (Zometa) 4 mg in 100 mL PREMIX ivpb 4 mg, IV Piggyback, ONCE, 1 dose, On Fri03/17/24 at 1415 Start Infusion 03/17/2024 1:07 PM EST 4 mg 400 mL/hr documented in this encounter Care Teams Geological Scout Relationship Specialty Start Date End Date Edel Clay MD [address] [place] [address] [place] [address] PCP - General Family Medicine 03/03/17 documented as of this encounter
--- OUTSIDE RECORDS SUMMARY | 2024-06-12 02:26 | External Medical Summary | Summary of Care ---
Author Name Unknown Organization [facility] Address [address] [place] [address] Phone [phone] Care Team Providers Care Asset Protection Professional Name Role Phone Edel Clay MD Primary [...] INJ RI INJ, ATEZOLIZUMAB,10 MG RI INJECTION, FULMonica Fontanez MD 400 [facility] [place] [address] Anc Hem/Onc [address] [address] Referral ID Status Reason Start Date Expiration Date V isits Requested Visits Authorized [id number] Authorized 12/17/2023 06/13/2024 999 999 Encounter Details Date Type Department Care Team (Latest Contact Info) Description 03/18/2024 4:00 PM EST Immunization/ Injection Hematology/Oncology Treatment, [address] [address] [place], Chair 10 Hem On[address] [place] [address] Encounter for antineoplastic chemotherapy*; Cancer, metastatic to [...] Thyroiditis 07/18/2008 06/01/2019 Overview: thyroglobulin antibody >3000 [id number] 08/19/200608/10 Overview: Renamed Per Clinical Trials Billing Project. Pt is a participant in the CORRO (Consortium of Rheumatology Researchers of [place]) national data collection study. For further information please call Dr Temo Castaneda or Kim Ríos, RN, CCRC at [phone] [facility] RESEARCH OTHER*[id number] 08/19/2006 11/06/2009 Overview: Renamed Per Clinical Trials Billing Project. Pt is a participant in the [facility] (Consortium of Rheumatology Researchers of [place]) national data collection study. For further information please call Dr Tmeo Castaneda or Kim Ríos, RN, CCRC at [phone] Arthritis, rheumatoid 07/01/20062016 Abnormal blood chemistry 05/02/2006 [...] 04/05/2024 8:10 AM EST Laboratory Laboratory [facility] [place] 200 [facility] [place] [phone] [place], Lab [address] [place] [address] 04/05/2024 8:30 AM EST Office Visit Hematology/Oncology [facility] [place] [address] [place] [phone] Monica Ward MD [address] [place], [place] [address] [address] 04/05/2024 9:00 AM EST Hem/Onc Treatment Hematology/Oncology Treatment, [place] 200 [facility] [place] [phone] [place], Chair 2 Hem Onc [place] [address] [place] [address] 04/06/2024 10:15 AM EST Hem/Onc Treatment Hematology/Oncology Treatment, [place] 200 [facility] [place] [phone] [place], Chair 5 Hem Onc Scenery [address] [place] [place] [address] 04/07/2024 8:45 AM EST Hem/Onc Treatment Hematology/Oncology Treatment, [place] 200 [place] [address] [place], Chair 2 Hem Onc Scenery 200 [facility] [place] [address] 04/09/2024 9:00 AM EST Immunization/Injecti on Hematology/Oncology Treatment, [place] [address] [place] [address] [place], Chair 4 Hem Onc Scenery 200 [facility] [place] [address] 07/14/2024 3:00 PM EST Office Visit Pulmonary Medicine, [facility] 132 [facility] [place] [address] Eloy Pond MD [address] [facility] [address] 10/15/2024 8:40 AM EDT Office Visit Rheumatology [address] [place] [phone] Samy Russo MD [address] [facility] [place] [address] Health Maintenance Due Date Last Done Comments [...] this encounter Medical Devices Implanted Type Area Aluminum Siding Mechanic Device Identifier Shelf Expiration Date Model / Serial / Lot Port Implant W8f Poly Cath - [id number] Implanted:Qty : 1 on 12/31/2023 by Sin Burroughs MD at OR [facility] Right: Chest CR BARD : PERIPHERAL VASCULAR [id number] 10/09/2024 [id number] / / [id number] documented as of this encounter Visit Diagnoses [...] Upper documented in this encounter Care Teams Asset Protection Professional Relationship Specialty Start Date End Date Edel Clay MD [address] [place] [address] [place] [address] PCP - General Family Medicine 03/03/17 documented as of this encounter
--- OUTSIDE RECORDS SUMMARY | 2024-06-12 02:26 | External Medical Summary ---
Author Name Unknown Address Unknown Organization K09:[facility] [place] [address] Laboratory Report Ordering Provider Test Date Status AKILAH ROMERO 03/15/2024 07:58:58 Final Observation Date Value Abnormality Reference (Units ) Status WBC, Total 03/15/2024 07:58:58 6.15 4.00-10.8 0 (K/uL) Final RBC 03/15/2024 07:58:58 3.25 3.85-5.15 (M/uL) Final Hemoglobin 03/15/2024 07:58:58 10.8 Below low normal 12 .0-15.3 (g/dL) Final HCT 03/15/2024 07:58:58 34.8 Below low normal 36. 0-45.2 (%) Final MCV 03/15/2024 07:58:58 107.1 81.5-97.5 (fL) Final MCH 03/15/2024 07:58:58 33.2 27.0-34.0 (pg) Final MCHC 03/15/2024 07:58:58 31.0 32.0-36.0 (g/dL) Final RDW 03/15/2024 07:58:58 16.6 11.5-15.5 (%) Final Platelets 03/15/2024 07:58:58 286 140-400 (K /uL) Final MPV 03/15/2024 07:58:58 8.4 6.6-11.1 ( fL) Final Performing Location [facility] [place] [address]
--- OUTSIDE RECORDS SUMMARY | 2024-06-12 02:26 | External Medical Summary ---
Author Name Unknown Address Unknown Organization K01:[facility] [place] [address] [facility] [address] [facility] [address] Laboratory Report Ordering Provider Test Date Status AKILAH ROMERO 03/15/2024 07:58:58 Final Observation Date Value Abnormality Reference (Units ) Status TSH 03/15/2024 07:58:58 12.30 Above high normal 0. 27-4.20 (uIU/mL) Final Performing Location [facility] [place] [address] [facility] [address]
--- OUTSIDE RECORDS SUMMARY | 2024-06-12 02:27 | External Medical Summary | Summary of Care ---
Author Name Unknown Organization [facility] Address [address] [place] [address] Phone [phone] Care Team Providers Care Attorney Law Clerk Name Role Phone Edel Clay MD Primary Care Provide r Reason for Visit * Reason Onset Date Comments Med Request 03/04/2024 Encounter Details Date Type Department Care Team (Late st Contact Info) Description 03/04/2024 Telephone Hematology/Oncology, [facility] [address] [place], [place] [phone] Monica Ward MD [address] [place] [address] Med Request Allergies Active Allergy Reactions Criticality Noted Date Comments Clindamycin Hives 08/26/2014 Codeine 10/25/2011 "Stupor", drowsy Other Allergy (See Comments) 024 Perfumes, hairspray, candles, etc. Sinus infections, headaches, very sensitive. Penicillins 01/30/2006 Hives ans swelling Sulfa Antibiotics 06/29/2010 Sick to her stomach documented as of this encounter (statuses as of 03/04/2024) Medications Medication Sig Dispensed Refills Start Date [...] mouth every 4 hours as needed. Active Hospital, Clinic, or Other Facility Administered [...] as of this encounter (statuses as of 03/04/2024) Active Problems Problem Noted Date Diagnosed Date [...] as of this encounter (statuses as of 03/04/2024) Resolved Problems Problem Noted Date Diagnosed Date [...] Thyroiditis 07/18/2008 06/01/2019 Overview: thyroglobulin antibody >3000 [id number] 08/19/200608/10 Overview: Renamed Per Clinical Trials Billing Project. Pt is a participant in the [facility] (Consortium of Rheumatology Researchers of [facility]) national data collection study. For further information please call Dr Temo Castaneda or Kim Ríos, RN, CCRC at [phone] [facility] RESEARCH OTHER*[id number] 08/19/2006 11/06/2009 Overview: Renamed Per Clinical Trials Billing Project. Pt is a participant in the [facility] (Consortium of Rheumatology Researchers of [place]) national data collection study. For further information please call Dr Temo Castaneda or Kim Ríos, RN, CCRC at [phone] Arthritis, rheumatoid 07/01/20062016 Abnormal blood chemistry 05/02/2006 Overview: positive rheumatoid factor. Metabolic syndrome 04/29/2006 0 Overview: insulin level 16 Mixed dyslipidemia 02/06/2006 9 Overview: Per Lipid Taxonomy. chol 192, hdl 26, trig 403 Allergic rhinitis due to pollen 01/30/2006 03/03/2017 Obesity, BMI not known 08/07 Overview: Per Obesity Taxonomy Denture irritation 0 documented as of this encounter (statuses as of 03/04/2024) Immunizations Name Administration Dates Next Due COVID-19 [...] Telephone Encounter - Kike Alvarez RN - 03/04/2024 3:19 PM EDT Pt sent MyG earlier, see this encounter for further communication. * Telephone Encounter - Sahara Alexander CPhT - 03/04/2024 2:58 PM EDT Spoke to patient via incoming call regarding prescriptions for additional cycles of chemo. She stated her treatment was extended by an additional 2 cycles and discussed at most recent OV with Dr. Ward. She is requesting prescriptions for Olanzapine and Dexamethasone to be sent to [facility] in [facility]. She has chemo currently scheduled for 03/15, 03/16 & 03/17. Please send if appropriate and if possible provide patient with an update. Sahara Alexander [employer] Wafer Inspector III Hematology Oncology Oral Chemotherapy Clinic Medication Therapy Disease Management [facility] 03/04/2024 3:06 PM documented in this encounter Plan of Treatment Upcoming Encounters Date Type Department Care Team (Late st Contact Info) Description 03/15/2024 7:50 AM EST Laboratory Laboratory [facility] [address] [place], [place] [address] [place], Lab Scenery [address] [place], [place] [address] 03/15/2024 8:30 AM EST Office Visit Hematology/Oncology Scenery [place] [address] [place] [address] Monica Ward MD [address] [place] [address] [place] [address] 03/15/2024 9:00 AM EST Hem/Onc Treatment Hematology/Oncology Treatment, [place] 200 [facility], [place] [address] [place], Chair 5 Hem Onc Scenery 200 [facility] [place] [address] 03/16/2024 8:45 AM EST Hem/Onc Treatment Hematology/Oncology Treatment, [address], [place] [address] [place], Chair 2 Hem Onc Scenery [address] [facility] [address] [place], [place] [address] 03/17/2024 12:30 PM EST Hem/Onc Treatment Hematology/Oncology Treatment, [address], [place] [address] [place], Chair 7 Hem Onc Scenery 200 [facility] [place], [place] [address] 07/14/2024 3:00 PM EST Office Visit Pulmonary Medicine, [facility] 132 [facility] [place] [address] Eloy Pond MD [address] [place] [address] 10/15/2024 8:40 AM EDT Office Visit Rheumatology [address] [place] [phone] Samy Russo MD 05[address] [facility] [place], [place] [address] Health Maintenance Due Date Last Done Comments [...] this encounter Medical Devices Implanted Type Area Handbag Finisher Device Identifier Shelf Expiration Date Model / Serial / Lot Port Implant W8f Poly Cath - [id number] Implanted:Qty : 1 on 12/31/2023 by Sin Burroughs MD at [facility] Right: Chest CR BARD : PERIPHERAL VASCULAR [id number] 10/09/2024 [id number] / / [id number] documented as of this encounter Care Teams Attorney Law Clerk Relationship Specialty Start Date End Date Edel Clay MD [address] [place] [address] [place] [address] PCP - General Family Medicine 03/03/17 documented as of this encounter
--- OUTSIDE RECORDS SUMMARY | 2024-06-12 02:27 | External Medical Summary | Summary of Care ---
Author Name Unknown Organization [facility] Address [address] [place] [address] Phone [phone] Care Team Providers Care Financial Services Auditor Name Role Phone Edel Clay MD Primary Care Provide r Reason for Visit * Reason Comments Chemotherapy Tecentriq/Carbo/Etop D1C4 * Episode Based Medications (Routine) - Authorized Specialty Diagnoses / Procedures Referred By Contac t Referred To Contact Diagnoses Encounter for antineoplastic chemotherapy Cancer, metastatic to bone (HCC) Metastatic adenocarcinoma to liver (HCC) Small cell lung cancer, right (HCC) Procedures PENDING TECENTRIQ & Monica Anderson MD [address] [place] [address] [place] [address] Anc Hem/Onc Scenery [address] [address] Referral ID Status Reason Start Date Expiration Date V isits Requested Visits Authorized [id number] Authorized 12/17/2023 06/13/2024 999 [id number] Encounter Details Date Type Department Care Team (Latest Contact Info) Description 02/23/2024 8:30 AM EDT Hem/Onc Treatment Hematology/Oncolog y Treatment, [address] [phone] [place] Chair 4 Hem Onc [address] [address] Encounter for antineoplastic chemotherapy*; Cancer, metastatic to bone (HCC); Metastatic adenocarcinoma to liver (HCC); Small cell lung cancer, right ([facility]) Allergies Active Allergy Reactions Criticality Noted Date Comments Clindamycin Hives 08/26/2014 Codeine 10/25/2011 "Stupor", drowsy Other Allergy (See Comments) 024 Perfumes, hairspray, candles, etc. Sinus infections, headaches, very sensitive. Penicillins 01/30/2006 Hives ans swelling Sulfa Antibiotics 06/29/2010 Sick to her stomach documented as of this encounter (statuses as of 02/27/2024) Medications Medication Sig Dispensed Refills Start Date End Date Status OMEGA-3 FATTY ACIDS 1000 MG PO CAPS 0 07/22/2006 Active Orencia 125 MG/ML Subcutaneous Solution Prefilled Syringe (Abatacept)Indicatio ns:Rheumatoid arthritis involving multiple sites with positive rheumatoid factor ([facility]) INJECT 125 MG ( ONE SYRINGE [...] sites with positive rheumatoid factor ([facility]) TAKE 1 TABLET BY MOUTH EVERY DAY [...] TO ACCESSING. 30 g 1 12/19/2023 Active Hospital, Clinic, or Other Facility Administered [...] as of this encounter (statuses as of 02/27/2024) Active Problems Problem Noted Date Diagnosed Date [...] as of this encounter (statuses as of 02/27/2024) Resolved Problems Problem Noted Date Diagnosed Date [...] Thyroiditis 07/18/2008 06/01/2019 Overview: thyroglobulin antibody >3000 [id number][facility] 08/19/200608/10 Overview: Renamed Per Clinical Trials Billing Project. Pt is a participant in the [employer] (Consortium of Rheumatology Researchers of [place]) national data collection study. For further information please call Dr Temo Castaneda or Kim Ríos, RN, CCRC at [phone] [facility] RESEARCH OTHER*[id number] 08/19/2006 11/06/2009 Overview: Renamed Per Clinical Trials Billing Project. Pt is a participant in the [employer] (Consortium of Rheumatology Researchers of [place]) national data collection study. For further information please call Dr Temo Castaneda or Kim Ríos, RN, CCRC at [phone] Arthritis, rheumatoid 07/01/20062016 Abnormal blood chemistry 05/02/2006 01/ Overview: positive rheumatoid factor. Metabolic syndrome 04/29/2006 0 Overview: insulin level 16 Mixed dyslipidemia 02/06/2006 9 Overview: Per Lipid Taxonomy. chol 192, hdl 26, trig 403 Allergic rhinitis due to pollen 01/30/2006 03/03/2017 Obesity, BMI not known 08/07 Overview: Per Obesity Taxonomy Denture irritation 0 documented as of this encounter (statuses as of 02/27/2024) Immunizations Name Administration Dates Next Due COVID-19 [...] of this encounter Nursing Notes * Domitila Nettles, RN - 02/23/2024 2:51 PM EDT Pt [...] Description 03/15/2024 7:50 AM EST Laboratory Laboratory [place] [place] [address] [place] [address] [phone] Diana Mortensen [facility] [address] [place] [address] [address] 03/15/2024 8:30 AM EST Office Visit Hematology/Oncology [place] [facility] [place] [address] [place] [address] [phone] Monica Ward [facility] [address] [facility] [phone] 03/15/2024 9:00 AM EST Hem/Onc Treatment Hematology/Oncology Treatment, [place] [address] [facility] [place] [phone] [place], Chair 5 Hem Onc Scenery [address] [place] [address] 03/16/2024 8:45 AM EST Hem/Onc Treatment Hematology/Oncology Treatment, [place] [address] [facility], [place] [phone] [place], Chair 2 Hem Onc Scenery [address] [facility] [place] [address] 03/17/2024 12:30 PM EST Hem/Onc Treatment Hematology/Oncology Treatment, [place] [address] [facility], [place] [phone] [place], Chair 7 Hem Onc Scenery [address] [facility] [place], [place] [address] 07/14/2024 3:00 PM EST Office Visit Pulmonary Medicine, [facility] [address] [facility] [address] Eloy Pond MD [address] [facility] [place] [address] 10/15/2024 8:40 AM EDT Office Visit Rheumatology [address] [place] [phone] Samy Russo MD [address] [place] [address] Health Maintenance Due Date Last Done Comments [...] this encounter Medical Devices Implanted Type Area Motor Vehicle Field Representative Device Identifier Shelf Expiration Date Model / Serial / Lot Port Implant W8f Poly Cath - [id number] Implanted:Qty : 1 on 12/31/2023 by Sin Burroughs MD at [facility] Right: Chest CR BARD : PERIPHERAL VASCULAR [id number] 10/09/2024 [id number] / / [id number] documented as of this encounter Visit Diagnoses [...] be infused over 30 minutes. Start Infusion 02/23/2024 9:57 AM EDT 1,200 mg 550 mL/hr CARBOplatin (Paraplatin) 527 mg in D5W 250 mL infusion 527 mg (Target AUC = 5), IV Piggyback, at 510 mL/hr Administer over 30 Minutes, PROTECT FROM LIGHT (Max Creatinine Clearance at 125 ml/min for calculating AUC dose), ONCE, 1 dose, On Fri02/23/24 at 1100 Start Infusion 02/23/2024 10:39 AM EDT 527 [...] micron low protein binding filter. Start Infusion 02/23/2024 11:16 AM EDT 190 mg 519.5 mL/hr Fosaprepitant Dimeglumine (Emend) 150 mg, ondansetron (Zofran) 16 mg, dexamethasone sodium phosphate 12 mg in NSS 250 mL Infusion 150 mg, IV Piggyback, ONCE, 1 dose, On Fri02/23/24 at 1015, Administer over 30 Minutes, Infuse over 30 minutes. Give 30 minutes prior to chemotherapy. Start Infusion 02/23/2024 9:17 AM EDT 150 mg 538.4 mL/hr hEParin 100 UNIT/ML Lock Flush inj 500 Units 500 Units (5 mL), IV Lock, PRN Other, IV Flush, Starting on Fri02/23/24 at 0901, Until Fri02/23/24 at 1856, For 24 hours, Do not flush if lock, PICC, or central line not in place; IV infusing or unable to flush. Given 02/23/2024 1:15 PM EDT 500 Units NSS infusion Intravenous, at 50 mL/hr, PRN, Starting on Fri02/23/24 at 1015, Until Fri02/23/24 at 1856, Maintenance line Start Infusion 02/23/2024 9:02 AM EDT 50 mL/hr sodium chloride 0.9 % flush central line 10 mL 10 mL, IV Push, PRN Other, IV Flush, Starting on Fri02/23/24 at 0901, Until Fri02/23/24 at 1856, For 24 hours, Do not flush if lock, PICC, or central line not in place; IV infusing or unable to flush. Given 02/23/2024 1:15 PM EDT 10 mL documented in this encounter Care Teams Financial Services Auditor Relationship Specialty Start Date End Date Edel Clay MD [address] [place] [address] [place] [address] PCP - General Family Medicine 03/03/17 documented as of this encounter
--- OUTSIDE RECORDS SUMMARY | 2024-06-12 02:27 | External Medical Summary | Summary of Care ---
Author Name Unknown Organization [facility] Address [address] [place] [address] Phone [phone] Care Team Providers Care Farm Advisor Name Role Phone Edel Clay MD Primary Care Provide r Reason for Visit * Reason Comments Medication Administration Fulphila * Episode Based Medications (Routine) - Authorized Specialty Diagnoses / Procedures Referred By Contac t Referred To Contact Diagnoses Encounter for antineoplastic chemotherapy Cancer, metastatic to bone (HCC) Metastatic adenocarcinoma to liver (HCC) Small cell lung cancer, right (HCC) Procedures PENDING TECENTRIQ & FULPHILA Monica Ward MD [address] [place], [place] [address] [phone] Anc Hem/Onc Scenery [address] [address] Referral ID Status Reason Start Date Expiration Date V isits Requested Visits Authorized [id number] Authorized 12/17/2023 06/13/2024 999 999 Encounter Details Date Type Department Care Team (Latest Contact Info) Description 02/26/2024 3:45 PM EDT Immunization/ Injection Hematology/Oncology Treatment, [address] [phone] [place], Chair 4 Hem Onc [address] [address] Encounter for antineoplastic chemotherapy*; Cancer, [...] as of this encounter (statuses as of 02/26/2024) Medications Medication Sig Dispensed Refills Start Date [...] positive rheumatoid factor ([facility]) TAKE 1 TABLET BY MOUTH EVERY [...] as of this encounter (statuses as of 02/26/2024) Active Problems Problem Noted Date Diagnosed Date [...] as of this encounter (statuses as of 02/26/2024) Resolved Problems Problem Noted Date Diagnosed Date [...] Thyroiditis 07/18/2008 06/01/2019 Overview: thyroglobulin antibody >3000 [id number][facility] 08/19/200608/10 Overview: Renamed Per Clinical Trials Billing Project. Pt is a participant in the [employer] (Consortium of Rheumatology Researchers of [place]) national data collection study. For further information please call Dr Temo Castaneda or Kim Ríos, RN, CCRC at [phone] [facility] RESEARCH OTHER*[id number] 08/19/2006 11/06/2009 Overview: Renamed Per Clinical Trials Billing Project. Pt is a participant in the [employer] (Consortium of Rheumatology Researchers of [place]) national data collection study. For further information please call Dr Temo Castaneda or Kim Ríos RN, CCRC at [phone] Arthritis, rheumatoid 07/01/20062016 Abnormal blood chemistry 05/02/2006 Overview: positive rheumatoid factor. Metabolic syndrome 04/29/2006 0 Overview: insulin level 16 Mixed dyslipidemia 02/06/2006 9 Overview: Per Lipid Taxonomy. chol 192, hdl 26, trig 403 Allergic rhinitis due to pollen 01/30/2006 03/03/2017 Obesity, BMI not known 08/07 Overview: Per Obesity Taxonomy Denture irritation 0 documented as of this encounter (statuses as of 02/26/2024) Immunizations Name Administration Dates Next Due COVID-19 [...] [place] LPN - 02/26/2024 4:02 PM EDT Rikila administered SQ into the left upper extremity. Patient tolerated injection and will returnin 3 weeks. documented in this encounter Plan of Treatment Upcoming Encounters Date Type Department Care Team (Late st Contact Info) Description 03/15/2024 7:50 AM EST Laboratory Laboratory [facility] [place] [address] [place], [place] [phone] [place], Lab Scenery [address] [facility] [place], [place] [address] 03/15/2024 8:30 AM EST Office Visit Hematology/Oncology Scenery [place] [address] [place] [phone] oMnica Ward MD [address] [facility] [place] [phone] 03/15/2024 9:00 AM EST Hem/Onc Treatment Hematology/Oncology Treatment, [place] 200 [facility], [place] [phone] [place], Chair 5 Hem Onc Scenery 200 [facility] [place] [address] 03/16/2024 8:45 AM EST Hem/Onc Treatment Hematology/Oncology Treatment, [place] [address] [facility], [place] [phone] [place], Chair 2 Hem Onc Scenery 200 [facility] [place], [place] [address] 03/17/2024 12:30 PM EST Hem/Onc Treatment Hematology/Oncology Treatment, [place] [address] [facility], [place] [phone] [place], Chair 7 Hem Onc Scenery 200 [facility] [place], [place] [address] 07/14/2024 3:00 PM EST Office Visit Pulmonary Medicine, [facility] [address] [facility] [address] Eloy Pond MD [address] [place] [address] 10/15/2024 8:40 AM EDT Office Visit Rheumatology [address] [place] [phone] Samy Russo MD [facility] [place] [address] Health Maintenance Due Date Last Done Comments [...] this encounter Medical Devices Implanted Type Area Tire Mounter Device Identifier Shelf Expiration Date Model / Serial / Lot Port Implant W8f Poly Cath - [id number] Implanted:Qty : 1 on 12/31/2023 by Sin Burroughs MD at [facility] Right: Chest CR BARD : PERIPHERAL VASCULAR [id number] 10/09/2024 [id number] / / [id number] documented as of this encounter Visit Diagnoses [...] On Lizbeth 02/26/24 at 1630, For 1 dose Given 02/26/2024 4:00 PM EDT 6 mg Arm L eft Upper documented in this encounter Care Teams Farm Advisor Relationship Specialty Start Date End Date Edel Clay MD [address] [place] [address] [place] [phone] PCP - General Family Medicine 03/03/17 documented as of this encounter
--- OUTSIDE RECORDS SUMMARY | 2024-06-12 02:27 | External Medical Summary | Summary of Care ---
Author Name Unknown Organization [facility] Address [address] [place] [address] Phone [phone] Care Team Providers Care Dry Cleaning Machine Operator Name Role Phone Edel Clay MD Primary Care Provide r Reason for Visit * Reason Comments Treatment Chemotherapy Encounter Details Date Type Department Care Team (Late st Contact Info) Description 02/23/2024 8:00 AM EDT Office Visit Hematology/Oncology [facility] [place] [address] [place] [address] Monica Ward MD [address] [facility] [place] [address] Small cell lung cancer, right (HCC)* Allergies Active Allergy Reactions Criticality Noted Date Comments Clindamycin Hives 08/26/2014 Codeine 10/25/2011 "Stupor", drowsy Other Allergy (See Comments) 024 Perfumes, hairspray, candles, etc. Sinus infections, headaches, very sensitive. Penicillins 01/30/2006 Hives ans swelling Sulfa Antibiotics 06/29/2010 Sick to her stomach documented as of this encounter (statuses as of 03/02/2024) Medications Medication Sig Dispensed Refills Start Date [...] as of this encounter (statuses as of 03/02/2024) Active Problems Problem Noted Date Diagnosed Date [...] as of this encounter (statuses as of 03/02/2024) Resolved Problems Problem Noted Date Diagnosed Date [...] Thyroiditis 07/18/2008 06/01/2019 Overview: thyroglobulin antibody >3000 [id number] 08/19/200608/10 Overview: Renamed Per Clinical Trials Billing Project. Pt is a participant in the [facility] (Consortium of Rheumatology Researchers of [facility]) national data collection study. For further information please call Dr Temo Castaneda or Kim Ríos, RN, CCRC at [phone] [facility] RESEARCH OTHER*[id number] 08/19/2006 11/06/2009 Overview: Renamed Per Clinical Trials Billing Project. Pt is a participant in the [facility] (Consortium of Rheumatology Researchers of [place]) national data collection study. For further information please call Dr Temo Castaneda or Kim Ríos, RN, CCRC at [phone] Arthritis, rheumatoid 07/01/20062016 Abnormal blood chemistry 05/02/2006 Overview: positive rheumatoid factor. Metabolic syndrome 04/29/2006 0 Overview: insulin level 16 Mixed dyslipidemia 02/06/2006 9 Overview: Per Lipid Taxonomy. chol 192, hdl 26, trig 403 Allergic rhinitis due to pollen 01/30/2006 03/03/2017 Obesity, BMI not known 08/07 Overview: Per Obesity Taxonomy Denture irritation 0 documented as of this encounter (statuses as of 03/02/2024) Immunizations Name Administration Dates Next Due COVID-19 [...] Sign Reading Time Taken Comments Blood Pressure 132/84 02/23/2024 8:11 AM EDT Pulse 86 02/23/2024 8:11 AM EDT Temperature 36.4 C (97.5 F) 02/23/2024 8:11 AM ED T Respiratory Rate - - Oxygen Saturation 94% 02/23/2024 8:11 AM EDT Inhaled Oxygen Concentration - - Weight 86.3 kg (190 lb 4.8 oz) 02/23/2024 8:11 A M EDT Height - - Body Mass Index 33.51 01/15/2024 3:20 PM EDT documented in this encounter Patient Instructions * Patient Instructions* Monica Ward MD - 02/23/2024 8:47 AM EDT Congratulations! The PET scan shows excellent response to the 3 cycles of chemotherapy that you have received so far. Continue the current chemotherapy- total of 6 cycles current chemotherapy will be needed to achieveclinical remission. You are scheduled to receive cycle 4 today on 02/23/2024 Start taking Citracal 1 tablet p.o. twice daily. Returns for follow-up after the next cycle of chemotherapy in 3 weeks. Please let me know if you have any questions. Thank you. Monica Ward MD Hematology/Oncology [facility] [address] [place] [address] 02/23/2024 8:48 AM documented in this encounter Progress Notes * Monica Ward MD - 02/23/2024 8:23 AM EDT Images from the original note were not included. Date of visit: 02/23/2024 Chief Complaint Patient presents with Treatment Chemotherapy Diagnosis: 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 Current treatment: Carboplatin + Etoposide + atezolizumab Q 3 weeks Zometa Q 6 weeks Subjective Alfredo Torrez is a 58 year old female presents for follow up on 02/23/2024 and to start C5 carbo+ etoposide + atezolizumab. The pt reports the [...] for olanzapine and dexamethasone (premedications for chemotherapy) HPI: Patient was diagnosed with extensive stage small-cell lung cancer on 12/04/2023, with PET scan showing multiple areas of metastasis with liver and bone metastasis. HISTORY OF PRESENT ILLNESS: Alfredo Torrez is a 58 year old female with a history as outlined above. Currently here for f/u visit today. She started C2D1 on 01/13/24 Atezolizumab, Etoposide, and Carboplatin. She reports that after C1 she had some nausea on D7 after smelling bengay. This is resolved now. She had some pain on right flank and back. This is still noted but better. Hair is thinning. Energy level has been ok. She continues to walk. Denies chest pain, palpitation or shortness of breath. No cough. Eating well. No abdominal pain, cramping, constipation or diarrhea. One episode of diarrhea after eating "dads cooking" No urinary issues. No neuropathy noted. She presents today on 02/02/2024 to receive cycle 3 of chemotherapy, tolerating it very well. Alfredo Torrez is a 58 year old female, current active smoker, smokes 1 PPD for the past 35 years, however has stopped smoking on 12/04/2023, was found to have large right hilar mass measuring 6.8 X 5.0 cm mass encasing the right mainstem bronchus and bronchus intermedius with mild narrowing of the right mainstem bronchus and bronchus intermedius with no evidence of pleural effusion, pneumothorax, pericardial effusion for any additional per day nodules. There are multiple hepatic lesions largest 1 being 3.7 x 2.6 cm concerning for metastasis. 11/20/2023:E CT chest without IV contrast was performed for pulmonary nodule evaluation that showeda right hilar mass measuring approximately 6.8 x 5.0 cm encasing the right mainstem bronchus and bronchus intermedius with mild narrowing of the right mainstem bronchus and bronchus intermedius. There are no additional pulmonary nodules. There are no pleural effusions or pneumothorax. There is a borderline enlarged precarinal lymph node measuring 1.0 cm in short axis. Multiple liver lesions, concerning for metastases, artists' booking representative lesion in the posterior right hepatic lobe measures 3.7 x 2.6 cm. 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 Patient describes stable respiratory symptoms status, except for episodic smoker's cough. Not on any bronchodilator therapy. No history of recent pneumonia, viral illnesses reported. Well-preserved exercise tolerance. Has 1 dog at home. Physical examination significant for alert awake anxious middle aged female, class 2 throat with grade 2 tonsils, adequate air entry in all lung castillo, minimal wheezing, regular cardiac rhythm, no evidence of volume overload and nonlateralizing Neuro examination. CT chest reveals a right hilar mass6.8 x 5.0 cm with extrinsic compression of right mainstem bronchus. Multiple hepatic lesions are noted as well concerning for metastatic disease. Clinical likelihood for malignancy is high. Tissue diagnostic workup is recommended. Clinical concern and radiologic findings were discussed in detail with the patient. We will proceedwith EBUS diagnostic bronchoscopy, along with PET scan in baseline pulmonary function testing. Patient will be followed up in 4 weeks to reassess respiratory symptoms status, review results of above-mentioned diagnostic bronchoscopy and discuss further management plan. Assessment Rhinitis, nonallergic (Primary) Rheumatoid arthritis involving multiple sites with positive rheumatoid factor (HCC) Acquired hypothyroidism Obesity, Class I, BMI 30.0-34.9 (see actual BMI) Labs reviewed 02/23/2024 -CBC, CMP within normal limits. TSH pending at this time Radiology: 09/12/2023: Bilateral mammogram: Dense bilateral breasts with no abnormal lesions. 11/03/2023: Right breast ultrasound: Benign 11/20/2023:E your chest without IV contrast was performed for pulmonary nodule evaluation that showed a right hilar mass measuring approximately 6.8 x 5.0 cm encasing the right mainstem bronchus and bronchus intermedius with mild narrowing of the right mainstem bronchus and bronchus intermedius. There are no additional pulmonary nodules. There are no pleural effusions or pneumothorax. There is a borderline enlarged precarinal lymph node measuring 1.0 cm in short axis. Multiple liver lesions, concerning for metastases, artists' booking representative lesion in the posterior right hepatic lobe measures 3.7 x 2.6 cm. 12/08/2023 PET scan shows bilateral palatine and lingual tonsils are enlarged with associated moderately increased FDG uptake with palatine fossa showing maximum SUV of 6.9 with no enlarged cervical lymph nodes. A similar large hypermetabolic right hilar mass is again noted with markedly increased FDG uptake and maximum SUV of 17.2. Internal areas of reduced FDG uptake are seen within the mass, compatible with necrosis. No evidence of hypermetabolic mediastinal lymphadenopathy. No pericardial effusion, no focal consolidation or pleural effusion. No mediastinal on axillary lymphadenopathy seen.Multiple hypermetabolic hypodense lesions are seen throughout the liver with largest lesion in the segment 3 of the left lobe of the liver has maximum SUV of 12.4. No focal adrenal nodules or significant abdominopelvic lymphadenopathy. Multiple hypermetabolic lytic lesions are seen involving bilateral iliac bones, right acetabulum and L4 vertebra. 02/17/2024: PET scan: The report as well as the films were reviewed with the patient in detail: Pathology: Final Diagnosis A. Lung, Bronchial wash: Adequacy: Less than optimal- Evaluation limited by scant cellularity. Category: Benign. Interpretation: Benign respiratory epithelial cells. Other: Cellblock: The histological sections of the cellblock preparation contain predominantly blood. B. Lung, Right upper lobe, Bronchoalveolar lavage: Adequacy: Satisfactory for evaluation. Category: Benign. Interpretation: Pulmonary macrophages and mixed inflammation. Other: Comment: No viral inclusions identified., GMS stain on the cell block is negative for pneumocystis and negative for other fungal elements., Cellblock: The histological sections of the cellblock preparation show similar findings. C. Lymph Node, 4R, EBUS transbronchial fine needle aspiration: Adequacy: Unsatisfactory for evaluation. Category: Non-diagnostic. Interpretation: Benign respiratory epithelial cells. Other: Cellblock: The histological sections of the cellblock preparation are hypocellular. D. Lung, Right upper lobe, EBUS transbronchial fine needle aspiration: Adequacy: Less than optimal- Evaluation limited by scant cellularity. Category: Non-diagnostic. Interpretation: Scant benign respiratory epithelial cells; insufficient for evaluation. Other: Cellblock: The histological sections of the cellblock preparation are hypocellular. E. Lung, Right upper lobe, Endoscopic brushing: Adequacy: Satisfactory for evaluation. Category: Benign. Interpretation: Benign respiratory epithelial cells. Other: Cellblock: The histological sections of the cellblock preparation show similar findings. F. Lung, Right upper lobe, Transbronchial biopsy: Adequacy: Category: Malignant. Interpretation: High grade carcinoma, possible small cell carcinoma, expression of POU2F3 variant (see comment). Other: Biopsy: The histological sections of the biopsy specimen contain fragments of tissue. Comment (Part F): Tumor cells show severe crushed artifact. Morphologically it is suspicious for small cell carcinoma. However, there is unusual immunophenotype. Tumor cells (40% cellularity) are nearly negative for neurroendocrine markers (CD56, synaptophysin, INSM-1, Chromogranin) and negative for TTF1. POU2F3 is focal but convincing positive. It probably represent a variant of small cell carcinoma*. Tumor cells are also positive for AE1/3, CK7 (focal); negative for CDX2, P40, CK5/6. The MIB-1 proliferation index is approximately 90%. 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 Right upper lobe mass biopsy showed findings as described above consistent with high-grade small cell lung cancer with Ki-67% age of 90%. Patient's performance status ECOG 1. PET scan shows no evidence of metastasis to the adrenal glands or intrathoracic/intra-abdominal lymphadenopathy. There are several hepatic lesions as well as lytic osseous lesions. Small cell lung cancer, right (HCC) (Primary)- tolerating treatment very well Metastatic adenocarcinoma to liver (HCC) Cancer, metastatic to bone (HCC) Plan of care discussed with the patient on 02/02/2024: Proceed with C3 today on 02/02/2024 RTC 3 weeks to start cycle 4 with labs prior to the visit and PET scan prior to the follow up visit. Continue Pegfilgrastin will be given on D4 given to reduce to risk of febrile neutropenia Zometa is due 02/04/24 Monica Ward MD PMH: Patient Active Problem List Diagnosis Acquired [...] Current Outpatient Medications Medication Sig Dispense Refill oxyCODONE-Acetaminophen 5-325 MG/5ML Oral Solution (Roxicet) Take by mouth every 4 hours as needed. OMEGA-3 FATTY ACIDS 1000 MG PO CAPS [...] other meds) 90 Tablet 3 Magic Swizzle (Qmhisbvyc-Xxgqsibp-Vgpqae) oral solution Swish and spit 15 mL [...] 1HR PRIOR TO ACCESSING. 30 g 1 Current Facility-Administered Medications Medication Dose Route [...] Antibiotics Sick to her stomach Objective BP 132/84 (BP Site: Left Arm, BP Position: Sitting, BP Cuff Size: Regular) | Pulse 86 | Temp 36.4 C (97.5 F) (Tympanic) | Wt 86.3 kg (190 lb 4.8 oz) | LMP 09/07/2015 (Approximate) | SpO2 94% | BMI 33.51 kg/m | BSA 1.96 m ASSESSMENT/PLAN: There are no diagnoses linked to this encounter. Monica Ward MD documented in this encounter Nursing Notes * Diya Raza MED ASSIST - 02/23/2024 8:17 AM EDT Patient identifed by name and birthdate Do [...] it for you? ALREADY ACTIVE Filed Vitals: 02/23/24 0811 BP: 132/84 Pulse: 86 Temp: 36.4 C (97.5 F) TempSrc: Tympanic SpO2: 94% Weight: 86.3 kg (190 lb 4.8 oz) Patient was instructed to not get [...] 03/15/2024 7:50 AM EST Laboratory Laboratory [employer] [address] [place] [address] [phone] [place] [facility] [address] [place] [address] [address] 03/15/2024 8:30 AM EST Office Visit Hematology/Oncology [facility], [place] [address] [place] [address] [phone] Monica Ward MD [address] [facility] [place] [phone] 03/15/2024 9:00 AM EST Hem/Onc Treatment Hematology/Oncology Treatment, [place] [address] [facility], [place] [phone] [place], Chair 5 Hem Onc Scenery [address] [place], [place] [address] 03/16/2024 8:45 AM EST Hem/Onc Treatment Hematology/Oncology Treatment, [address], [place] [phone] [place], Chair 2 Hem Onc Scenery 200 [facility] [place], [place] [address] 03/17/2024 12:30 PM EST Hem/Onc Treatment Hematology/Oncology Treatment, [address], [place] [phone] [place], Chair 7 Hem Onc Scenery [address] [facility] [place], [place] [address] 07/14/2024 3:00 PM EST Office Visit Pulmonary Medicine, [facility] [address] [facility] [place] [address] Eloy Pond MD [address] [facility] [place] [address] 10/15/2024 8:40 AM EDT Office Visit Rheumatology [address] [place] [phone] Samy Russo MD [address] [facility] [place], [place] [address] Health Maintenance Due Date Last Done Comments [...] this encounter Medical Devices Implanted Type Area Clothing Supervisor Device Identifier Shelf Expiration Date Model / Serial / Lot Port Implant W8f Poly Cath - [id number] Implanted:Qty : 1 on 12/31/2023 by Sin Burroughs MD at [facility] Right: Chest CR BARD : PERIPHERAL VASCULAR [id number] 10/09/2024 [id number] / / [id number] documented as of this encounter Visit Diagnoses Diagnosis Small cell lung cancer, right (HCC)- Primary documented in this encounter Care Teams Dry Cleaning Machine Operator Relationship Specialty Start Date End Date Edel Clay MD [address] [place] [address] [place] [address] PCP - General Family Medicine 03/03/17 documented as of this encounter
--- OUTSIDE RECORDS SUMMARY | 2024-06-12 02:27 | External Medical Summary | Summary of Care ---
Author Name Unknown Organization [facility] Address [address] [place] [address] Phone [phone] Care Team Providers Care Guitar Maker Name Role Phone Edel Clay MD Primary [...] PENDING TECENTRIQ & FULPHILA Monica Ward MD [address] [place], [place] [address] [phone] Anc Hem/Onc Scenery [address] [address] Referral ID Status Reason Start Date Expiration Date V isits Requested Visits Authorized [id number] Authorized 12/17/2023 06/13/2024 999 [id number] Encounter Details Date Type Department Care Team (Latest Contact Info) Description 02/26/2024 3:45 PM EDT Immunization/ Injection Hematology/Oncology Treatment, [address] [phone] [place], Chair 4 Hem Onc [address] [address] Encounter for antineoplastic chemotherapy*; Cancer, [...] as of this encounter (statuses as of 03/05/2024) Medications Medication Sig Dispensed Refills Start Date End Date Status OMEGA-3 FATTY ACIDS 1000 MG PO CAPS 0 07/22/2006 Active Orencia 125 MG/ML Subcutaneous Solution Prefilled Syringe (Abatacept)Indicatio ns:Rheumatoid arthritis involving multiple sites with positive rheumatoid factor ([facility]) INJECT 125 MG ( ONE [...] involving multiple sites with positive rheumatoid factor ([facility]) TAKE 1 TABLET BY MOUTH EVERY DAY [...] as of this encounter (statuses as of 03/05/2024) Active Problems Problem Noted Date Diagnosed Date [...] as of this encounter (statuses as of 03/05/2024) Resolved Problems Problem Noted Date Diagnosed Date [...] Thyroiditis 07/18/2008 06/01/2019 Overview: thyroglobulin antibody >3000 [id number] 08/19/200608/10 Overview: Renamed Per Clinical Trials Billing Project. Pt is a participant in the [facility] (Consortium of Rheumatology Researchers of [place]) national data collection study. For further information please call Dr Temo Castaneda or Kim Ríos, RN, CCRC at [phone] [facility] RESEARCH OTHER*[id number] 08/19/2006 11/06/2009 Overview: Renamed Per Clinical Trials Billing Project. Pt is a participant in the [facility] (Consortium of Rheumatology Researchers of [place]) national data collection study. For further information please call Dr Temo Castaneda or Kim Ríos RN, CCRC at [phone] Arthritis, rheumatoid 07/01/20062016 Abnormal blood chemistry 05/02/2006 Overview: positive rheumatoid factor. Metabolic syndrome 04/29/2006 0 Overview: insulin level 16 Mixed dyslipidemia 02/06/2006 9 Overview: Per Lipid Taxonomy. chol 192, hdl 26, trig 403 Allergic rhinitis due to pollen 01/30/2006 03/03/2017 Obesity, BMI not known 08/07 Overview: Per Obesity Taxonomy Denture irritation 0 documented as of this encounter (statuses as of 03/05/2024) Immunizations Name Administration Dates Next Due COVID-19 [...] Description 03/15/2024 7:50 AM EST Laboratory Laboratory [facility] [place] [address] [place], [place] [phone] [place], Lab Scenery [address] [facility] [place], [place] [address] 03/15/2024 8:30 AM EST Office Visit Hematology/Oncology Scenery [place] [address] [place] [phone] Monica Ward MD 400 [facility] [place] [phone] 03/15/2024 9:00 AM EST Hem/Onc Treatment Hematology/Oncology Treatment, [place] 200 [facility], [place] [phone] [place], Chair 5 Hem Onc Scenery 200 [facility] [place] [address] 03/16/2024 8:45 AM EST Hem/Onc Treatment Hematology/Oncology Treatment, [place] 200 [facility], [place] [phone] [place], Chair 2 Hem Onc Scenery 200 [facility] [place], [place] [address] 03/17/2024 12:30 PM EST Hem/Onc Treatment Hematology/Oncology Treatment, [place] [address] [facility], [place] [phone] [place], Chair 7 Hem Onc Scenery 200 [facility] [place], [place] [address] 07/14/2024 3:00 PM EST Office Visit Pulmonary Medicine, [facility] [address] [facility] [place] [address] Eloy Pond MD [address] [place] [address] 10/15/2024 8:40 AM EDT Office Visit Rheumatology [address] [place] [phone] Samy Russo MD [facility] [place] [address] Health Maintenance Due Date Last Done Comments [...] this encounter Medical Devices Implanted Type Area Mold Builder Device Identifier Shelf Expiration Date Model / Serial / Lot Port Implant W8f Poly Cath - [id number] Implanted:Qty : 1 on 12/31/2023 by Sin Burroughs MD at [facility] Right: Chest CR BARD : PERIPHERAL VASCULAR [id number] 10/09/2024 [id number] / / [id number] documented as of this encounter Visit Diagnoses [...] Upper documented in this encounter Care Teams Guitar Maker Relationship Specialty Start Date End Date Edel Clay MD [address] [place] [address] [place] [phone] PCP - General Family Medicine 03/03/17 documented as of this encounter
--- OUTSIDE RECORDS SUMMARY | 2024-06-12 02:27 | External Medical Summary | Summary of Care ---
Author Name Unknown Organization [facility] Address [address] [place] [address] Phone [phone] Care Team Providers Care Csr Technician Name Role Phone Edel Clay MD Primary Care Provide r Encounter Details Date Type Department Care Team (Late st Contact Info) Description 03/05/2024 Orders Only Hematology/Oncology [facility] [place] [address] [facility] [address] Monica Ward MD [address] [place] [address] Allergies Active Allergy Reactions Criticality Noted [...] Thyroiditis 07/18/2008 06/01/2019 Overview: thyroglobulin antibody >3000 [id number]-[facility] 08/19/200608/10 Overview: Renamed Per Clinical Trials Billing Project. Pt is a participant in the [facility] (Consortium of Rheumatology Researchers of [place]) national data collection study. For further information please call Dr Temo Castaneda or Kim Ríos, RN, CCRC at [phone] [facility] RESEARCH OTHER*[id number] 08/19/2006 11/06/2009 Overview: Renamed Per Clinical Trials Billing Project. Pt is a participant in the [facility] (Consortium of Rheumatology Researchers of [place]) national data collection study. For further information please call Dr Temo Castaneda or Kim Ríos, RN, CCRC at [phone] Arthritis, rheumatoid 07/01/20062016 Abnormal blood chemistry 05/02/2006 [...] Description 03/15/2024 7:50 AM EST Laboratory Laboratory [facility] [place] [address] [place] [address] [phone] [place], Lab [facility] [address] [place] [address] [address] 03/15/2024 8:30 AM EST Office Visit Hematology/Oncology [facility] [place] [address] [phone] Monica Ward MD [address] [place] [address] [place] [phone] 03/15/2024 9:00 AM EST Hem/Onc Treatment Hematology/Oncology Treatment, [place] 200 [facility] [place] [phone] [place], Chair 5 Hem Onc [facility] [place] [address] [address] 03/16/2024 8:45 AM EST Hem/Onc Treatment Hematology/Oncology Treatment, [place] 200 [facility] [place] [phone] [place], Chair [address] [facility] [place] [place] [address] [address] 03/17/2024 12:30 PM EST Hem/Onc Treatment Hematology/Oncology Treatment, [place] [address] [place] [phone] Park, Chair 7 Hem Onc Scenery [address] [place] [address] 07/14/2024 3:00 PM EST Office Visit Pulmonary Medicine, [facility] [address] [facility] [place] [address] Eloy Pond MD [address] [place] [facility] [place] [address] 10/15/2024 8:40 AM EDT Office Visit Rheumatology [address] [place] [phone] Samy Russo MD [address] [facility] [place] [address] Health Maintenance Due Date Last Done Comments [...] this encounter Medical Devices Implanted Type Area [employer] Machine Operator Device Identifier Shelf Expiration Date Model / Serial / Lot Port Implant W8f Poly Cath - [id number] Implanted:Qty : 1 on 12/31/2023 by Sin Burroughs MD at OR [facility] Right: Chest CR BARD : PERIPHERAL VASCULAR [id number] 10/09/2024 [id number] / / [id number] documented as of this encounter Care Teams Csr Technician Relationship Specialty Start Date End Date Edel Clay MD [address] [place] [address] [place] [address] PCP - General Family Medicine 03/03/17 documented as of this encounter
--- OUTSIDE RECORDS SUMMARY | 2024-06-12 02:27 | External Medical Summary | Summary of Care ---
Author Name Unknown Organization [facility] Address [address] [place] [address] Phone [phone] Care Team Providers Care Electronic Engineering Technician Name Role Phone Edel Clay MD Primary Care Provide r Reason for Visit * Reason Onset Date Comments Medication Refill 03/05/2024 Encounter Details Date Type Department Care Team (Late st Contact Info) Description 03/05/2024 Refill Hematology/Oncology [facility] [address] [place] [address] Monica Ward MD 400 [place] [address] Encounter for antineoplastic chemotherapy; Cancer, metastatic to [...] Orencia 125 MG/ML Subcutaneous Solution Prefilled Syringe (Abatacept)Indicati ons:Rheumatoid arthritis involving multiple sites with positive rheumatoid factor (HCC) INJECT 125 MG ( ONE SYRINGE ) UNDER THE SKIN ONCE A WEEK 4 mL 11 12/25/2022 Active Additional Information Patient not taking.Reported on 02/23/2024 Azelastine HCl 137 MCG/SPRAY Nasal SolutionIndications :Rhinitis, nonallergic SPRAY 2 SPRAYS INTO EACH NOSTRIL IN THE MORNING AND BEFORE BEDTIME 90 mL 3 06/06/2023 Active Levothyroxine Sodium 100 MCG Oral Tablet (Levoxyl)Indication s:Acquired hypothyroidism Take 1 Tablet by mouth daily first thing in the morning. (at least 30 min prior to breakfast or other meds) 90 Tablet 3 08/05/2023 Active Magic Swizzle (Lidocaine-Benadryl -Maalox) oral solution Swish and spit 15 mL in the morning and 15 mL before bedtime. 120 mL 1 09/05/2023 Active Multivitamins Oral Capsule MULTIVITAMINS ORAL CAPSULE Active Triamcinolone Acetonide 55 MCG/ACT Nasal Aerosol (Nasacort Allergy 24HR) Active Methotrexate Sodium 2.5 MG Oral Tablet TAKE 6 TABLETS BY MOUTH ONE TIME PER WEEK 78 Tablet 1 10/09/2023 Active Folic Acid 1 MG Oral TabletIndications:R heumatoid arthritis involving multiple sites with positive rheumatoid [...] 02/23/2024 Prochlorperazine Maleate 10 MG Oral Tablet (Compazine)Indicati ons:Encounter for antineoplastic chemotherapy,Cancer , metastatic to bone (HCC),Metastatic adenocarcinoma to liver (HCC),Small cell lung cancer, right (HCC) Take 1 Tablet by mouth every 6 hours as needed for Nausea. 30 Tablet 5 12/19/2023 Active Lidocaine-Prilocain e 2.5-2.5 % External Cream (Emla)Indications:S mall cell lung cancer, right (HCC),Metastatic adenocarcinoma to liver (HCC),Cancer, metastatic to bone (HCC) APPLY TO SKIN OVER MEDIPORT & COVER 1HR PRIOR TO ACCESSING. 30 g 1 12/19/2023 Active oxyCODONE-Acetamino phen 5-325 MG/5ML Oral Solution (Roxicet) Take by mouth every 4 hours as needed. Active dexAMETHasone 4 MG Oral Tablet (Decadron)Indicatio ns:Encounter for antineoplastic chemotherapy,Cancer , metastatic to bone (HCC),Metastatic adenocarcinoma to liver (HCC),Small cell lung cancer, right (HCC) Take 2 Tablets by mouth in the morning. With food on days 2, 3, and 4 of chemo.. 12 Tablet 03/05/2024 Active OLANZapine 10 MG Oral Tablet (zyPREXA)Indication s:Encounter for antineoplastic chemotherapy,Cancer , metastatic to bone (HCC),Metastatic adenocarcinoma to liver (HCC),Small cell lung cancer, right (HCC) Take 1 Tablet by mouth at bedtime. On days 1, 2, 3, and 4 of chemo. 8 Tablet 03/05/2024 Active dexAMETHasone 4 MG Oral Tablet (Decadron)Indicatio ns:Encounter for antineoplastic chemotherapy,Cancer , metastatic to bone (HCC),Metastatic adenocarcinoma to liver (HCC),Small cell lung cancer, right (HCC) Take 2 Tablets by mouth in the morning for 3 days. With food on days 2, 3, and 4 of chemo.. Do not start before December 20, 2023. 24 Tablet 12/20/2023 03/05/20 24 Discontinu ed(Refill) OLANZapine 10 MG Oral Tablet (zyPREXA)Indication s:Encounter for antineoplastic chemotherapy,Cancer , metastatic to bone (HCC),Metastatic adenocarcinoma to liver (HCC),Small cell lung cancer, right (HCC) Take 1 Tablet by mouth at bedtime for 4 days. On days 1, 2, 3, and 4 of chemo. 16 Tablet 12/19/2023 03/05/20 24 Discontinu ed(Refill) Hospital, Clinic, or Other Facility Administered Medication [...] Thyroiditis 07/18/2008 06/01/2019 Overview: thyroglobulin antibody >3000 [id number] 08/19/200608/10 Overview: Renamed Per Clinical Trials Billing Project. Pt is a participant in the [facility] (Consortium of Rheumatology Researchers of [facility]) national data collection study. For further information please call Dr Temo Castaneda or Kim Ríos, RN, CCRC at [phone] [facility] RESEARCH OTHER*[id number] 08/19/2006 11/06/2009 Overview: Renamed Per Clinical Trials Billing Project. Pt is a participant in the [facility] (Consortium of Rheumatology Researchers of [place]) national data collection study. For further information please call Dr Temo Castaneda or Kim Ríos, RN, CCRC at [phone] Arthritis, rheumatoid 07/01/20062016 Abnormal blood chemistry 05/02/2006 [...] Telephone Encounter - Kike Alvarez RN - 03/05/2024 7:49 AM EDT Pended Dexa/Zyprexa for upcoming 2 additional cycles of chemo. documented in this encounter Plan of Treatment Upcoming Encounters Date Type Department Care Team (Late st Contact Info) Description 03/15/2024 7:50 AM EST Laboratory Laboratory [facility] [address] [place] [phone] [place], Lab [address] [facility] [place] [address] 03/15/2024 8:30 AM EST Office Visit Hematology/Oncology [facility] [address] [place] [phone] Monica Ward MD [address] [place], [place] [address] [phone] 03/15/2024 9:00 AM EST Hem/Onc Treatment Hematology/Oncology [address], [address] [phone] [place], Chair 5 Hem Onc [address] [place] [address] 03/16/2024 8:45 AM EST Hem/Onc Treatment Hematology/Oncology [address], [address] [phone] [place], Chair 2 Hem Onc [facility][note 3] [place] [address] [address] 03/17/2024 12:30 PM EST Hem/Onc Treatment Hematology/Oncology Treatment, [place] [address] [place] [address] [place], Chair 7 Hem Onc Scenery [address] [place] [address] 07/14/2024 3:00 PM EST Office Visit Pulmonary Medicine, [facility] [address] [facility] [place] [address] Eloy Pond MD [address] [facility] [place] [address] 10/15/2024 8:40 AM EDT Office Visit Rheumatology [address] [place] [phone] Samy Russo MD [address] [facility] [place], [place] [address] Health Maintenance Due Date Last Done Comments [...] this encounter Medical Devices Implanted Type Area Motion Graphics Artist Device Identifier Shelf Expiration Date Model / Serial / Lot Port Implant W8f Poly Cath - [id number] Implanted:Qty : 1 on 12/31/2023 by Sin Burroughs MD at [facility] Right: Chest CR BARD : PERIPHERAL VASCULAR [id number] 10/09/2024 [id number] / / [id number] documented as of this encounter Visit Diagnoses Diagnosis Encounter for antineoplastic chemotherapy Cancer, metastatic to bone (HCC) Secondary malignant neoplasm of bone and bone marrow Metastatic adenocarcinoma to liver (HCC) Secondary malignant neoplasm of liver Small cell lung cancer, right (HCC) documented in this encounter Care Teams Electronic Engineering Technician Relationship Specialty Start Date End Date Edel [place] MD [address] [place] [address] [place] [address] PCP - General Family Medicine 03/03/17 documented as of this encounter
--- OUTSIDE RECORDS SUMMARY | 2024-06-12 02:27 | External Medical Summary | Summary of Care ---
Author Name Unknown Organization [facility] Address [address] [place] [address] Phone [phone] Care Team Providers Care Bristle Machine Operator Name Role Phone Edel Clay [...] Procedures PENDING TECENTRIQ & Monica Anderson MD [address] [place] [address] [place] [address] Anc Hem/Onc Scenery [address] [address] Referral ID Status Reason Start Date Expiration Date V isits Requested Visits Authorized [id number] Authorized 12/17/2023 06/13/2024 999 [id number] Encounter Details Date Type Department Care Team (Latest Contact Info) Description 02/25/2024 1:30 PM EDT Hem/Onc Treatment Hematology/Oncolog y Treatment, [address] [address] [place] Chair 8 Hem Onc [address] [address] Encounter for antineoplastic chemotherapy*; Cancer, [...] as of this encounter (statuses as of 02/25/2024) Medications Medication Sig Dispensed Refills Start Date End Date Status OMEGA-3 FATTY ACIDS 1000 MG PO CAPS 0 07/22/2006 Active Orencia 125 MG/ML Subcutaneous Solution Prefilled Syringe (Abatacept)Indicatio ns:Rheumatoid arthritis involving multiple sites with positive rheumatoid factor ([facility]) INJECT 125 MG ( ONE SYRINGE [...] involving multiple sites with positive rheumatoid factor ([facility]) TAKE 1 TABLET BY MOUTH EVERY [...] as of this encounter (statuses as of 02/25/2024) Active Problems Problem Noted Date Diagnosed Date [...] as of this encounter (statuses as of 02/25/2024) Resolved Problems Problem Noted Date Diagnosed Date [...] Thyroiditis 07/18/2008 06/01/2019 Overview: thyroglobulin antibody >3000 [id number][facility] 08/19/200608/10 Overview: Renamed Per Clinical Trials Billing Project. Pt is a participant in the [facility] (Consortium of Rheumatology Researchers of [place]) national data collection study. For further information please call Dr Temo Castaneda or Kim Ríos, RN, CCRC at [phone] [facility] RESEARCH OTHER*[id number] 08/19/2006 11/06/2009 Overview: Renamed Per Clinical Trials Billing Project. Pt is a participant in the [facility] (Consortium of Rheumatology Researchers of [place]) national data collection study. For further information please call Dr Temo Castaneda or Kim Ríos RN, CCRC at [phone] Arthritis, rheumatoid 07/01/20062016 Abnormal blood chemistry 05/02/2006 Overview: positive rheumatoid factor. Metabolic syndrome 04/29/2006 0 Overview: insulin level 16 Mixed dyslipidemia 02/06/2006 9 Overview: Per Lipid Taxonomy. chol 192, hdl 26, trig 403 Allergic rhinitis due to pollen 01/30/2006 03/03/2017 Obesity, BMI not known 08/07 Overview: Per Obesity Taxonomy Denture irritation 0 documented as of this encounter (statuses as of 02/25/2024) Immunizations Name Administration Dates Next Due COVID-19 [...] Nursing Notes * Domitila Nettles RN - 02/25/2024 4:09 PM EDT Pt completed [...] Care Team (Late st Contact Info) Description 02/26/2024 3:45 PM EDT Immunization/Injecti on Hematology/Oncology Treatment, [place] 200 [facility] [place] [phone] [place], Chair 4 Hem Onc [facility] 200 [facility] [place] [address] 03/15/2024 7:50 AM EST Laboratory Laboratory [facility] [place] [address] [place] [address] [place], Lab Scenery 200 [facility] [place] [address] 03/15/2024 8:30 AM EST Office Visit Hematology/Oncology [facility] [place] 200 [facility] [place] [phone] Monica Ward MD [address] [place], [place] [address] [phone] 03/15/2024 9:00 AM EST Hem/Onc Treatment Hematology/Oncology Treatment, [address] [place] [address] [place], Chair 5 Hem Onc [facility] 200 [facility] [place] [address] 03/16/2024 8:45 AM EST Hem/Onc Treatment Hematology/Oncology Treatment, [place] 200 [facility] [place] [phone] [place], Chair 2 Hem Onc Scenery [address] [place] [address] 03/17/2024 12:30 PM EST Hem/Onc Treatment Hematology/Oncology Treatment, [place] [address] [place] [address] [place], Chair 7 Hem Onc Scenery [address] [place], [place] [address] 07/14/2024 3:00 PM EST Office Visit Pulmonary Medicine, [facility] [address] [place] [address] Eloy Pond MD [address] [facility] [address] 10/15/2024 8:40 AM EDT Office Visit Rheumatology [address] [place] [phone] Samy Russo MD [address] [facility] [place] [address] Health Maintenance Due Date Last Done Comments [...] this encounter Medical Devices Implanted Type Area Director Of Communications Device Identifier Shelf Expiration Date Model / Serial / Lot Port Implant W8f Poly Cath - [id number] Implanted:Qty : 1 on 12/31/2023 by Sin Burroughs MD at OR [facility] Right: Chest CR BARD : PERIPHERAL VASCULAR [id number] 10/09/2024 [id number] / / [id number] documented as of this encounter Visit Diagnoses [...] ONCE PRN Other, Hypersensitivity Reaction, Starting on 02/25/24 at 1352, Until Lizbeth 02/26/24 at 1351, For 24 hours EPINEPHrine 1 MG/ML inj 0.3 mg 0.3 mg, Intramuscular, ONCE PRN Other, Hypersensitivity Reaction or Anaphylaxis, Starting on Fri02/25/24 at 1352, Until Lizbeth 02/26/24 at 1351, For 24 hours hEParin 100 UNIT/ML Lock Flush inj 500 Units 500 Units (5 mL), IV Lock, PRN Other, IV Flush, Starting on Fri02/25/24 at 1352, Until Lizbeth 02/26/24 at 1351, For 24 hours, Do not flush if lock, PICC, or central line not in place; IV infusing or unable to flush. Given 02/25/2024 3:32 PM EDT 500 Units Hydrocortisone Sod Suc (PF) (Solu-Cortef) inj 100 mg 100 mg, IV Push, ONCE PRN Other, Hypersensitivity Reaction, Starting on Fri02/25/24 at 1352, Until Lizbeth 02/26/24 at 1351, For 24 hours LORAzepam (Ativan) tab 0.5 mg 0.5 mg, Oral, ONCE PRN Anxiety, Nausea, Starting on Fri02/25/24 at 1500, Until Discontinued NSS infusion Intravenous, at 50 mL/hr, PRN, Starting on Fri02/25/24 at 1500, Until Discontinued, Maintenance line Start Infusion 02/25/2024 1:53 PM EDT 50 mL/hr oxygen GAS Inhalation, OXYGEN, First dose on Fri02/25/24 at 1600, Until Discontinued, Device/Managed by: Low [...] Flush, Starting on Fri02/25/24 at 1352, Until Lizbeth 10/17/24 at 1351, For 24 hours, Do not flush if lock, PICC, or central line not in place; IV infusing or unable to flush. Given 02/25/2024 3:32 PM EDT 10 mL Inactive Administered Medications - up [...] micron low protein binding filter. Start Infusion 02/25/2024 2:27 PM EDT 190 mg 519.5 mL/hr ondansetron (Zofran) tab 8 mg 8 mg, Oral, ONCE, On Fri02/25/24 at 1415, For 1 dose, Give 30 minutes prior to chemotherapy. Given 02/25/2024 2:05 PM EDT 8 mg documented in this encounter Care Teams Bristle Machine Operator Relationship Specialty Start Date End Date Edel [place] MD [address] [place] [address] [place] [address] PCP - General Family Medicine 03/03/17 documented as of this encounter
--- OUTSIDE RECORDS SUMMARY | 2024-06-12 02:27 | External Medical Summary | Summary of Care ---
Author Name Unknown Organization [facility] Address [address] [place] [address] Phone [phone] Care Team Providers Care Wheat Grower Name Role Phone Edel [place] MD Primary Care Provide r Reason for Visit * Reason Onset Date Comments Med Request 03/04/2024 Encounter Details Date Type Department Care Team (Late st Contact Info) Description 03/04/2024 Telephone Hematology/Oncology, [facility] [address] [place], [place] [phone] Monica Ward MD [address] [place] [address] Med Request Allergies Active Allergy [...] Thyroiditis 07/18/2008 06/01/2019 Overview: thyroglobulin antibody >3000 [id number] 08/19/200608/10 Overview: Renamed Per Clinical Trials Billing Project. Pt is a participant in the [facility] (Consortium of Rheumatology Researchers of [facility]) national data collection study. For further information please call Dr Temo Castaneda or Kim Ríos, RN, CCRC at [phone] [facility] RESEARCH OTHER*[id number] 08/19/2006 11/06/2009 Overview: Renamed Per Clinical Trials Billing Project. Pt is a participant in the [facility] (Consortium of Rheumatology Researchers of [place]) national data collection study. For further information please call Dr Temo Castaneda or Kim Ríos, RN, CCRC at [phone] Arthritis, rheumatoid 07/01/20062016 Abnormal blood chemistry 05/02/2006 [...] Olanzapine and Dexamethasone to be sent to [facility] in [facility]. She has chemo currently scheduled for 03/15, 03/16 & 03/17. Please send if appropriate and if possible provide patient with an update. Sahara Alexander Shift Boss III Hematology Oncology Oral Chemotherapy Clinic Medication Therapy Disease Management [facility] 03/04/2024 3:06 PM documented in this encounter Plan of Treatment Upcoming Encounters Date Type Department Care Team (Late st Contact Info) Description 03/15/2024 7:50 AM EST Laboratory Laboratory [facility] [address] [place], [place] [address] [place], Lab Scenery [address] [place], [place] [address] 03/15/2024 8:30 AM EST Office Visit Hematology/Oncology Scenery [place] [address] [place] [phone] Monica [place] MD [address] [place] [address] [place] [phone] 03/15/2024 9:00 AM EST Hem/Onc Treatment Hematology/Oncology Treatment, [place] 200 [facility], [place] [phone] [place], Chair 5 Hem Onc Scenery 200 [facility] [place] [address] 03/16/2024 8:45 AM EST Hem/Onc Treatment Hematology/Oncology Treatment, [address], [place] [phone] [place], Chair 2 Hem Onc Scenery [address] [facility] [address] [place], [place] [address] 03/17/2024 12:30 PM EST Hem/Onc Treatment Hematology/Oncology Treatment, [address], [place] [phone] [place], Chair 7 Hem Onc Scenery 200 [facility] [place], [place] [address] 07/14/2024 3:00 PM EST Office Visit Pulmonary Medicine, [facility] 132 [facility] [place] [address] Eloy Pond MD [address] [place] [address] 10/15/2024 8:40 AM EDT Office Visit Rheumatology [address] [place] [phone] Samy Russo MD [address] [facility] [place], [place] [address] Health Maintenance Due Date Last Done Comments [...] this encounter Medical Devices Implanted Type Area Curer Foam Rubber Device Identifier Shelf Expiration Date Model / Serial / Lot Port Implant W8f Poly Cath - [id number] Implanted:Qty : 1 on 12/31/2023 by Sin Burroughs MD at [facility] Right: Chest CR BARD : PERIPHERAL VASCULAR [id number] 10/09/2024 [id number] / / [id number] documented as of this encounter Care Teams Wheat Grower Relationship Specialty Start Date End Date Edel [place] MD [address] [place] [address] [place] [address] PCP - General Family Medicine 03/03/17 documented as of this encounter
--- OUTSIDE RECORDS SUMMARY | 2024-06-12 02:27 | External Medical Summary | Summary of Care ---
Author Name Unknown Organization [facility] Address [address] [place] [address] Phone [phone] Care Team Providers Care Hooker Operator Name Role Phone Edel Clay MD Primary Care Provide r Reason for Visit * Reason Comments Treatment Chemotherapy Encounter Details Date Type Department Care Team (Late st Contact Info) Description 02/23/2024 8:00 AM EDT Office Visit Hematology/Oncology [facility] [place] [address] [place] [address] Monica Ward MD [address] [place] [address] Small cell lung cancer, right (HCC)*; Cancer, metastatic to bone (HCC) Allergies Active [...] Thyroiditis 07/18/2008 06/01/2019 Overview: thyroglobulin antibody >3000 [id number] 08/19/200608/10 Overview: Renamed Per Clinical Trials Billing Project. Pt is a participant in the CORRO (Consortium of Rheumatology Researchers of [place]) national data collection study. For further information please call Dr Temo Castaneda or Kim Ríos, RN, CCRC at [phone] [facility] RESEARCH OTHER*[id number] 08/19/2006 11/06/2009 Overview: Renamed Per Clinical Trials Billing Project. Pt is a participant in the CORRONA (Consortium of Rheumatology Researchers of [place]) national data collection study. For further information please call Dr Temo Castaneda or Kim Ríos, RN, CCRC at [phone] Arthritis, rheumatoid 07/01/20062016 Abnormal blood chemistry 05/02/2006 [...] questions. Thank you. Monica Ward MD Hematology/Oncology [facility] [place] [address] [facility] [place] [address] 02/23/2024 8:48 AM documented in this encounter Progress Notes * Monica Ward MD - 02/23/2024 8:23 AM EDT Date of visit: 02/23/2024 Diagnosis: 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 Current treatment: Carboplatin + Etoposide + atezolizumab Q 3 weeks and Zometa Q 6 weeks Chief Complaint Patient presents with Treatment Chemotherapy Subjective Alfredo Torrez is a 58 year old female presents for follow up on 02/23/2024 and to start C4 carbo+ etoposide + atezolizumab. 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 Multiple liver lesions, concerning for metastases, access service representative lesion in the posterior right hepatic [...] other meds) 90 Tablet 3 Magic Swizzle (Jhnzkcahl-Yerlfkse-Kitoan) oral solution Swish and spit 15 mL [...] weight change. HENT: Negative. Eyes: Negative. Respiratory: Positive for cough and shortness of breath. Gastrointestinal: Negative. Endocrine: Negative. Genitourinary: Negative. Musculoskeletal: Positive for arthralgias. Allergic/Immunologic: Negative. Neurological: Negative. Hematological: Negative. Psychiatric/Behavioral: Negative. Objective BP 132/84 (BP Site: Left Arm, BP Position: Sitting, BP Cuff Size: Regular) | Pulse 86 | Temp 36.4 C (97.5 F) (Tympanic) | Wt 86.3 kg (190 lb 4.8 oz) | LMP 09/07/2015 (Approximate) | SpO2 94% | BMI 33.51 kg/m | BSA 1.96 m Physical Exam [...] Judgment normal. 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 Monica Ward MD documented in this encounter Nursing Notes * Diya Raza, DENY CARBAJAL - 02/23/2024 8:17 AM EDT Patient identifed [...] comprehension of instructions. documented in this encounter Miscellaneous Notes * Addendum Note - Monica Ward MD - 03/04/2024 5:39 PM EDT Addended by: MONICA WARD on: 03/04/2024 05:39 PM Modules accepted: Orders documented in this encounter Plan of Treatment Upcoming Encounters Date Type Department Care Team (Late st Contact Info) Description 03/15/2024 7:50 AM EST Laboratory Laboratory [facility] [place] [address] [place] [phone] [place], Lab [facility] [address] [facility] [place] [address] 03/15/2024 8:30 AM EST Office Visit Hematology/Oncology [facility] [place] [address] [place] [address] [phone] Monica Ward MD [address] [place] [address] [place] [phone] 03/15/2024 9:00 AM EST Hem/Onc Treatment Hematology/Oncology Treatment, [place] 200 [facility] [place] [address] [place], Chair 5 Hem Onc Scenery [address] [place] [address] [address] 03/16/2024 8:45 AM EST Hem/Onc Treatment [facility]cology [facility] [place] [facility] [phone] [place], Chair 2 Hem Onc Scenery [address] [place] [address] [address] 03/17/2024 12:30 PM EST Hem/Onc Treatment Hematology/Oncology Treatment, [place] [address] [place] [address] [place], Chair 7 Hem Onc Scenery 200 [place] [address] 07/14/2024 3:00 PM EST Office Visit Pulmonary Medicine, [facility] 132 [facility] [place] [address] Eloy Pond MD [address] [place] [address] 10/15/2024 8:40 AM EDT Office Visit Rheumatology [address] [place] [phone] Samy Russo MD [address] [place] [address] Health Maintenance Due Date Last Done Comments [...] this encounter Medical Devices Implanted Type Area Carbon Dioxide Operator Device Identifier Shelf Expiration Date Model / Serial / Lot Port Implant W8f Poly Cath - [id number] Implanted:Qty : 1 on 12/31/2023 by Sin Burroughs MD at OR [facility] Right: Chest CR BARD : PERIPHERAL VASCULAR [id number] 10/09/2024 [id number] / / [id number] documented as of this encounter Visit Diagnoses Diagnosis Small cell lung cancer, right (HCC)- Primary Cancer, metastatic to bone (HCC) Secondary malignant neoplasm of bone and bone marrow documented in this encounter Care Teams Hooker Operator Relationship Specialty Start Date End Date Edel Clay MD [address] [place] [address] [place] [address] PCP - General Family Medicine 03/03/17 documented as of this encounter
--- OUTSIDE RECORDS SUMMARY | 2024-06-12 02:28 | External Medical Summary | Summary of Care ---
Author Name Unknown Organization [facility] Address [address] [place] [address] Phone [phone] Care Team Providers Care Environmental Assistant Name Role Phone Edel Clay MD Primary Care Provide r Reason for Visit * Reason Comments Chemotherapy Etoposide D2C2 * Episode Based Medications (Routine) - Authorized Specialty Diagnoses / Procedures Referred By Contac t Referred To Contact Diagnoses Encounter for antineoplastic chemotherapy Cancer, metastatic to bone (HCC) Metastatic adenocarcinoma to liver (HCC) Small cell lung cancer, right (HCC) Procedures PENDING TECENTRIQ & Monica Anderson MD [address] [place] [address] [place] [address] Anc Hem/Onc Scenery [address] [address] Referral ID Status Reason Start Date Expiration Date V isits Requested Visits Authorized [id number] Authorized 12/17/2023 06/13/2024 999 999 Encounter Details Date Type Department Care Team (Latest Contact Info) Description 01/15/2024 12:00 PM EDT Hem/Onc Treatment Hematology/Oncolog y Treatment, [address] [address] [place], Chair 6 Hem On[address] [address] Encounter for antineoplastic chemotherapy*; Cancer, [...] involving multiple sites with positive rheumatoid factor ([facility]) INJECT 125 MG ( ONE SYRINGE ) UNDER THE SKIN ONCE A WEEK 4 mL 11 12/25/2022 Active Azelastine HCl 137 MCG/SPRAY Nasal SolutionIndications: Rhinitis, [...] EVERY DAY 90 Tablet 1 12/01/2023 Active Ventolin HFA 108 (90 Base) MCG/ACT Inhalation Aerosol Solution Inhale 2 Puffs by mouth every 4 hours as needed for Shortness of Breath. 18 g 11 12/04/2023 Active Prochlorperazine Maleate 10 MG Oral Tablet (Compazine)Indicatio [...] g 1 12/19/2023 Active oxyCODONE-Acetaminop hen 5-325 MG Oral Tablet (Percocet)Indication s:Encounter for antineoplastic chemotherapy,Cancer, metastatic to bone (HCC),Metastatic adenocarcinoma to liver (HCC),Small cell lung cancer, right (HCC) Take 2 Tablets by mouth every 6 hours as needed for Pain, Severe. 60 Tablet 12/22/2023 Hospital, Clinic, or Other Facility Administered Medication [...] Thyroiditis 07/18/2008 06/01/2019 Overview: thyroglobulin antibody >3000 [id number] 08/19/200608/10 Overview: Renamed Per Clinical Trials Billing Project. Pt is a participant in the CORRONA (Consortium of Rheumatology Researchers of [place]) national data collection study. For further information please call Dr Temo Castaneda or Kim Ríos RN, CCRC at [phone] [facility] RESEARCH OTHER*[id number] 08/19/2006 11/06/2009 Overview: Renamed Per Clinical Trials Billing Project. Pt is a participant in the CORRONA (Consortium of Rheumatology Researchers of [place]) national data collection study. For further information please call Dr Temo Castaneda or Kim Ríos, RN, CCRC at [phone] Arthritis, rheumatoid 07/01/20062016 Abnormal blood chemistry 05/02/2006 [...] Sign Reading Time Taken Comments Blood Pressure 146/74 01/15/2024 12:19 PM EDT Pulse 73 01/15/2024 12:19 PM EDT Temperature 36.9 C (98.4 F) 01/15/2024 12:19 PM E DT Respiratory Rate 18 01/15/2024 12:19 PM EDT Oxygen Saturation 99% 01/15/2024 12:19 PM EDT Inhaled Oxygen Concentration - - Weight - - Height - - Body Mass Index - - documented in this encounter Nursing Notes * Domitila Nettles RN - 01/15/2024 3:20 PM EDT Chair 10, [id number]. Pt has no new symptoms/concerns to report since treatment yesterday. VAD flushed with positive blood return; NSS infusing. Safety and Risk for Injury Patient will remain free from injury. Ensure appropriate safety devices are available. Provide and maintain safe environment. Pt completed treatment without issues. VAD flushed [...] during treatment today. Discharged in stable condition. documented in this encounter Plan of Treatment Upcoming Encounters Date Type Department Care Team (Late st Contact Info) Description 02/25/2024 1:30 PM EDT Hem/Onc Treatment Hematology/Oncology Treatment, [address] [place] [phone] [place], Chair [address] Hem On[address] [place] [address] 02/26/2024 4:30 PM EDT Immunization/Injecti on Hematology/Oncology Treatment, [place] 200 [facility] [place] [phone] [place], Chair 4 Hem Onc Scenery [address] [facility] [place] [address] 03/15/2024 7:50 AM EST Laboratory Laboratory [facility] [place] [address] [facility] [place] [phone] [place], Lab Scenery 200 [facility] [place] [address] 03/15/2024 8:30 AM EST Office Visit Hematology/Oncology Scenery [facility] [address] [place] [phone] Monica Ward MD [address] [facility] [address] 03/15/2024 9:00 AM EST Hem/Onc Treatment Hematology/Oncology Treatment, [place] 200 [place] [address] [place], Chair 5 Hem Onc Scenery [address] [place], [place] [address] 03/16/2024 8:45 AM EST Hem/Onc Treatment Hematology/Oncology Treatment, [place] 200 [facility], [place] [phone] [place], Chair 2 Hem Onc Scenery [address], [place] [address] 03/17/2024 10:15 AM EST Hem/Onc Treatment Hematology/Oncology Treatment, [place] [address] [place] [address] [place], Chair 5 Hem Onc Scenery [address] [place], [place] [address] 07/14/2024 3:00 PM EST Office Visit Pulmonary Medicine, [facility] 132 [facility] [place] [address] Eloy Pond MD [address] [place] [address] 10/15/2024 8:40 AM EDT Office Visit Rheumatology [address] [place] [phone] Samy Russo MD [address] [place] [address] Health Maintenance Due Date Last Done Comments [...] this encounter Medical Devices Implanted Type Area Cleaning Professional Device Identifier Shelf Expiration Date Model / Serial / Lot Port Implant W8f Poly Cath - [id number] Implanted:Qty : 1 on 12/31/2023 by Sin Burroughs MD at OR [facility] Right: Chest CR BARD : PERIPHERAL VASCULAR [id number] 10/09/2024 [id number] / / [id number] documented as of this encounter Visit Diagnoses [...] weight), IV Piggyback, ONCE, 1 dose, On Lizbeth 01/15/24 at 1400, Administer over 60 Minutes, Recommended concentration is less than or equal to 0.4 mg/mL. If concentration is greater than 0.4 mg/mL recommend to administer through 0.22 micron low protein binding filter. Start Infusion 01/15/2024 12:48 PM EDT 190 mg 519.5 mL/hr hEParin 100 UNIT/ML Lock Flush inj 500 Units 500 Units (5 mL), IV Lock, PRN Other, IV Flush, Starting on Lizbeth 01/15/24 at 1229, Until Lizbeth 01/15/24 at 1936, For 24 hours, Do not flush if lock, PICC, or central line not in place; IV infusing or unable to flush. Given 01/15/2024 2:00 PM EDT 500 Units NSS infusion Intravenous, at 50 mL/hr, PRN, Starting on Lizbeth 01/15/24 at 1330, Until Lizbeth 01/15/24 at 1936, Maintenance line Start Infusion 01/15/2024 12:45 PM EDT 50 mL/hr ondansetron (Zofran) tab 8 mg 8 mg, Oral, ONCE, On Lizbeth 01/15/24 at 1330, For 1 dose, Give 30 minutes prior to chemotherapy. Given 01/15/2024 12:34 PM EDT 8 mg sodium chloride 0.9 % flush central line 10 mL 10 mL, IV Push, PRN Other, IV Flush, Starting on Lizbeth 01/15/24 at 1229, Until Lizbeth 01/15/24 at 1936, For 24 hours, Do not flush if lock, PICC, or central line not in place; IV infusing or unable to flush. Given 01/15/2024 2:00 PM EDT 10 mL documented in this encounter Care Teams Environmental Assistant Relationship Specialty Start Date End Date Edel Clay MD [address] [place] [address] [place] [address] PCP - General Family Medicine 03/03/17 documented as of this encounter
--- OUTSIDE RECORDS SUMMARY | 2024-06-12 02:28 | External Medical Summary | Summary of Care ---
Author Name Unknown Organization [facility] Address [address] [place] [address] Phone [phone] Care Team Providers Care Enrobing Machine Operator Name Role Phone Edel Clay MD Primary Care Provide r Reason for Visit * Reason Comments Chemotherapy Etoposide C2D2 * Episode Based Medications (Routine) - Authorized Specialty Diagnoses / Procedures Referred By Contac t Referred To Contact Diagnoses Encounter for antineoplastic chemotherapy Cancer, metastatic to bone (HCC) Metastatic adenocarcinoma to liver (HCC) Small cell lung cancer, right (HCC) Procedures PENDING TECENTRIQ & Monica Anderson MD [address] [place], [place] [address] [address] Anc Hem/Onc Scenery [address] [address] Referral ID Status Reason Start Date Expiration Date V isits Requested Visits Authorized [id number] Authorized 12/17/2023 06/13/2024 999 999 Encounter Details Date Type Department Care Team (Latest Contact Info) Description 01/14/2024 2:30 PM EDT Hem/Onc Treatment Hematology/Oncolog y Treatment, [address] [address] [place], Chair 10 Hem Onc [address] [address] Encounter for antineoplastic chemotherapy*; Cancer, [...] sites with positive rheumatoid factor ([facility]) INJECT 125 MG ( ONE [...] Thyroiditis 07/18/2008 06/01/2019 Overview: thyroglobulin antibody >3000 [id number][facility] 08/19/200608/10 Overview: Renamed Per Clinical Trials Billing Project. Pt is a participant in the CORRONA (Consortium of Rheumatology Researchers of [place]) national data collection study. For further information please call Dr Temo Castaneda or Kim Ríos RN, CCRC at [phone] [facility] RESEARCH OTHER*[id number] 08/19/2006 11/06/2009 Overview: Renamed Per Clinical Trials Billing Project. Pt is a participant in the CORRONA (Consortium of Rheumatology Researchers [place]) national data collection study. For further information please call Dr Temo Castaneda or Kim Ríos, RN, CCRC at [phone] Arthritis, rheumatoid 07/01/20062016 Abnormal blood chemistry 05/02/2006 [...] Date Smoking Tobacco: Former Cigarettes 1 28 Smokeless Tobacco: Never Comments:started age 25/ no passive smoke. 1 ppd smoker 11/27/23. Alcohol Use Standard Drinks/Week Comments Yes 0 [...] of this encounter Nursing Notes * Adalgisa Fuentes, NORM - 01/14/2024 4:40 PM EDT Goals: Patient will remain free from injury. Possible barriers to meeting goals: IV pump Stability of the patient: Moderately stable - low risk of patient condition declining or worsening Summary regarding today's goals: Met: Patient remained free from injury during treatment. VAD flushed with 10 ml NSS and Heparin 5 ml (100 units/ml). Rogel needle removed intact. * Domitila Nettles RN - 01/14/2024 3:01 PM EDT Chair 1 Chemotherapy/Immunotherapy agents: ETOPOSIDE Consent for chemotherapy drug [...] and treat per provider VAD accessed; NSS Infusing. Safety and Risk for Injury Patient will remain free from injury. Ensure appropriate safety devices are available. Provide and maintain safe environment. Functional Status: Functional status at today's visit: Restricted in physically strenuous activity but ambulatory and able to carry out work on a light orsedentary nature, e.g. light house work, office work The drug name, dose, infusion volume, rate [...] 1:30 PM EDT Hem/Onc Treatment Hematology/Oncology Treatment, [place] [address] [place] [phone] [place], Chair 8 Hem Onc Scenery [address] [place] [address] 02/26/2024 4:30 PM EDT Immunization/Injecti on Hematology/Oncology Treatment, [place] 200 [facility], [place] [address] [place], Chair 4 Hem Onc Scenery 200 [facility] [place], [place] [address] 03/15/2024 7:50 AM EST Laboratory Laboratory [facility] [place] [address] [place], [place] [address] [place], Lab [facility] 200 [facility] [place] [address] 03/15/2024 8:30 AM EST Office Visit Hematology/Oncology [facility] 200 [facility] [place], [place] [phone] Monica Ward MD [address] [place], [place] [address] [phone] 03/15/2024 9:00 AM EST Hem/Onc Treatment Hematology/Oncology Treatment, [address], [place] [phone] [place], Chair 5 Hem Onc Scenery 200 [facility] [place], [place] [address] 03/16/2024 8:45 AM EST Hem/Onc Treatment Hematology/Oncology Treatment, [address], [place] [address] [place], Chair 2 Hem Onc Scenery 200 [facility] [place] [address] 03/17/2024 10:15 AM EST Hem/Onc Treatment Hematology/Oncology Treatment, [address] [place] [address] [place], Chair 5 Hem Onc Scenery 200 [facility] [place] [address] 07/14/2024 3:00 PM EST Office Visit Pulmonary Medicine, [facility] [address] [place] [address] Eloy Pond MD [address] [place] [address] 10/15/2024 8:40 AM EDT Office Visit Rheumatology [address] [place] [address] Samy Russo MD [address] [place] [address] Health Maintenance Due Date Last Done Comments [...] this encounter Medical Devices Implanted Type Area Enhanced Environmental Operator Device Identifier Shelf Expiration Date Model / Serial / Lot Port Implant W8f Poly Cath - [id number] Implanted:Qty : 1 on 12/31/2023 by Sin Burroughs MD at OR [facility] Right: Chest CR BARD : PERIPHERAL VASCULAR [id number] 10/09/2024 [id number] / / [id number] documented as of this encounter Visit Diagnoses [...] weight), IV Piggyback, ONCE, 1 dose, On Fri01/14/24 at 1630, Administer over 60 Minutes, Recommended concentration is less than or equal to 0.4 mg/mL. If concentration is greater than 0.4 mg/mL recommend to administer through 0.22 micron low protein binding filter. Start Infusion 01/14/2024 3:36 PM EDT 190 mg 519.5 mL/hr NSS infusion Intravenous, at 50 mL/hr, PRN, Starting on Fri01/14/24 at 1600, Until Fri01/14/24 at 2141, Maintenance line Start Infusion 01/14/2024 3:03 PM EDT 50 mL/hr ondansetron (Zofran) tab 8 mg 8 mg, Oral, ONCE, On Fri01/14/24 at 1600, For 1 dose, Give 30 minutes prior to chemotherapy. Given 01/14/2024 3:03 PM EDT 8 mg documented in this encounter Care Teams Enrobing Machine Operator Relationship Specialty Start Date End Date Edel Clay MD [address] [place] [address] [place] [phone] PCP - General Family Medicine 03/03/17 documented as of this encounter
--- OUTSIDE RECORDS SUMMARY | 2024-06-12 02:28 | External Medical Summary | Summary of Care ---
Author Name Unknown Organization [facility] Address [address] [place] [address] Phone [phone] Care Team Providers Care Dry Dip Worker Name Role Phone Edel Clay MD [...] Procedures PENDING TECENTRIQ & Monica Anderson MD [address] [place] [address] [place] [address] Anc Hem/Onc Scenery [address] [address] Referral ID Status Reason Start Date Expiration Date V isits Requested Visits Authorized [id number] Authorized 12/17/2023 06/13/2024 999 [id number] Encounter Details Date Type Department Care Team (Latest Contact Info) Description 01/15/2024 12:00 PM EDT Hem/Onc Treatment Hematology/Oncolog y Treatment, [address] [address] Balb[place], Chair 6 Hem Onc [address] [address] Encounter for antineoplastic chemotherapy*; Cancer, [...] involving multiple sites with positive rheumatoid factor ([facility]) INJECT 125 MG ( ONE SYRINGE [...] Thyroiditis 07/18/2008 06/01/2019 Overview: thyroglobulin antibody >3000 [id number] 08/19/200608/10 Overview: Renamed Per Clinical Trials Billing Project. Pt is a participant in the [employer]RON[employer] (Consortium of Rheumatology Researchers of [place]) national data collection study. For further information please call Dr Temo Castaneda or Kim Ríos RN, CCRC at [phone] [facility] RESEARCH OTHER*[id number] 08/19/2006 11/06/2009 Overview: Renamed Per Clinical Trials Billing Project. Pt is a participant in the [employer]RON[employer] (Consortium of Rheumatology Researchers of [place]) national data collection study. For further information please call Dr Temo Castaneda or Kim Ríos, RN, CCRC at [phone] Arthritis, rheumatoid 07/01/20062016 Abnormal blood chemistry 05/02/2006 [...] - 01/15/2024 3:20 PM EDT Chair 10, [id number]. Pt has no new symptoms/concerns to report [...] 1:30 PM EDT Hem/Onc Treatment Hematology/Oncology Treatment, [address] [place] [phone] [place]ina, Chair 8 Hem Onc [address] [place] [address] 02/26/2024 4:30 PM EDT Immunization/Injecti on Hematology/Oncology Treatment, [place] 200 [facility] [place] [phone] Bal[place]ina, Chair 4 Hem Onc Scenery 200 [facility] [place] [address] 03/15/2024 7:50 AM EST Laboratory Laboratory [facility] [place] 200 [facility] [place] [phone] [place], Lab Scenery 200 [facility] [place] [address] 03/15/2024 8:30 AM EST Office Visit Hematology/Oncology Scenery [facility] [address] [place] [phone] Monica Ward [facility] 400 [facility] [place] [address] 03/15/2024 9:00 AM EST Hem/Onc Treatment Hematology/Oncology Treatment, [place] 200 [place] [phone] [place], Chair 5 Hem Onc Scenery [address] [place], [place] [address] 03/16/2024 8:45 AM EST Hem/Onc Treatment Hematology/Oncology Treatment, [place] 200 [facility], [place] [phone] [place], Chair 2 Hem Onc Scenery 200 [facility] [place], [place] [address] 03/17/2024 10:15 AM EST Hem/Onc Treatment Hematology/Oncology Treatment, [place] 200 [place] [address] [place], Chair 5 Hem Onc Scenery [address] [place], [place] [address] 07/14/2024 3:00 PM EST Office Visit Pulmonary Medicine, [facility] 132 [facility] [place] [address] Eloy Pond MD [address] [place] [address] 10/15/2024 8:40 AM EDT Office Visit Rheumatology [address] [place] [phone] Samy Russo MD [address] [facility] [place] [address] Health Maintenance Due Date Last Done Comments [...] encounter Medical Devices Implanted Type Area Automotive Service Advisor Device Identifier Shelf Expiration Date Model / Serial / Lot Port Implant W8f Poly Cath - [id number] Implanted:Qty : 1 on 12/31/2023 by Sin Burroughs MD at OR [facility] Right: Chest CR BARD : PERIPHERAL VASCULAR [id number] 10/09/2024 [id number] / / [id number] documented as of this encounter Visit Diagnoses [...] mL documented in this encounter Care Teams Dry Dip Worker Relationship Specialty Start Date End Date Edel Clay MD [address] [place] [address] [place] [address] PCP - General Family Medicine 03/03/17 documented as of this encounter
--- OUTSIDE RECORDS SUMMARY | 2024-06-12 02:28 | External Medical Summary | Summary of Care ---
Author Name Unknown Organization [facility] Address [address] [place] [address] Phone [phone] Care Team Providers Care Non Destructive Evaluation Specialist Name Role Phone Edel Clay MD [...] PENDING TECENTRIQ & FULPHILA Monica Ward MD [address] [place], [place] [address] [address] Anc Hem/Onc Scenery [address] [address] Referral ID Status Reason Start Date Expiration Date V isits Requested Visits Authorized [id number] Authorized 12/17/2023 06/13/2024 999 999 Encounter Details Date Type Department Care Team (Latest Contact Info) Description 01/16/2024 4:00 PM EDT Immunization/ Injection Hematology/Oncology Treatment, [address] [address] Bal[place], Chair 2 Hem Onc [address] [address] Encounter for antineoplastic chemotherapy*; Cancer, [...] Thyroiditis 07/18/2008 06/01/2019 Overview: thyroglobulin antibody >3000 [facility] 08/19/200608/10 Overview: Renamed Per Clinical Trials Billing Project. Pt is a participant in the CORRONA (Consortium of Rheumatology Researchers of [place]) national data collection study. For further information please call Dr Temo Castaneda or Kim Ríos RN, CCRC at [phone] [facility] RESEARCH OTHER*[id number] 08/19/2006 11/06/2009 Overview: Renamed Per Clinical Trials Billing Project. Pt is a participant in the [employer]RON[employer] (Consortium of Rheumatology Researchers of [place]) national data collection study. For further information please call Dr Temo Castaneda or Kim Ríos, RN, CCRC at [phone] Arthritis, rheumatoid 07/01/20062016 Abnormal blood chemistry 05/02/2006 [...] Nursing Notes * Selena Davenport LPN - 01/16/2024 4:00 PM EDT Fulphila 6mg adminstered SQ into the left upper extremity per standing order. documented in this encounter Plan of Treatment Upcoming Encounters Date Type Department Care Team (Late st Contact Info) Description 02/25/2024 1:30 PM EDT Hem/Onc Treatment Hematology/Oncology Treatment, [place] 200 [facility] [place], [place] [phone] Balbina, Chair 8 Hem Onc Scenery [address] [place] [address] 02/26/2024 4:30 PM EDT Immunization/Injecti on Hematology/Oncology Treatment, [place] 200 [facility] [place], [place] [address] Bal[place], Chair 4 Hem Onc Scenery [address] [place] [address] 03/15/2024 7:50 AM EST Laboratory Laboratory [facility] [place] [address] [place] [address] [place], Lab Scenery [address] [facility] [place] [place] [address] 03/15/2024 8:30 AM EST Office Visit Hematology/Oncology [facility] [place] [address] [place], [place] [phone] Monica Ward MD [address] [place], [place] [address] [place] [address] 03/15/2024 9:00 AM EST Hem/Onc Treatment Hematology/Oncology Treatment, [place] 200 [facility], [place] [phone] Bal[place], Chair 5 Hem Onc Scenery [address] [place], [place] [address] 03/16/2024 8:45 AM EST Hem/Onc Treatment Hematology/Oncology Treatment, [place] 200 [facility], [place] [address] Bal[place], Chair 2 Hem Onc Scenery [address] [place] [address] 03/17/2024 10:15 AM EST Hem/Onc Treatment Hematology/Oncology Treatment, [place] [address] [place] [phone] [place], Chair 5 Hem Onc Scenery [address] [place] [address] 07/14/2024 3:00 PM EST Office Visit Pulmonary Medicine, [facility] 132 [facility] [place] [address] Eloy Pond MD [address] [place] [address] 10/15/2024 8:40 AM EDT Office Visit Rheumatology [address] [place] [address] Samy Russo MD [address] [employer] [place] [address] Health Maintenance Due Date Last Done Comments [...] this encounter Medical Devices Implanted Type Area Purse Seining Hand Device Identifier Shelf Expiration Date Model / Serial / Lot Port Implant W8f Poly Cath - [id number] Implanted:Qty : 1 on 12/31/2023 by Sin Burroughs MD at OR [facility] Right: Chest CR BARD : PERIPHERAL VASCULAR [id number] 10/09/2024 [id number] / / [id number] documented as of this encounter Visit Diagnoses [...] 6 mg 6 mg, Subcutaneous, ONCE, On Fri01/16/24 at 1630, For 1 dose Given 01/16/2024 3:58 PM EDT 6 mg Arm L eft Upper documented in this encounter Care Teams Non Destructive Evaluation Specialist Relationship Specialty Start Date End Date Edel Clay MD [address] [place] [address] [place] [address] PCP - General Family Medicine 03/03/17 documented as of this encounter
--- OUTSIDE RECORDS SUMMARY | 2024-06-12 02:28 | External Medical Summary | Summary of Care ---
Author Name Unknown Organization [facility] Address [address] [place] [address] Phone [phone] Care Team Providers Care Yoghurt Maker Name Role Phone Edel Clay MD [...] Procedures PENDING TECENTRIQ & Monica Anderson MD [address] [place] [address] [place] [address] Anc Hem/Onc Scenery [address] [address] Referral ID Status Reason Start Date Expiration Date V isits Requested Visits Authorized [id number] Authorized 12/17/2023 06/13/2024 999 999 Encounter Details Date Type Department Care Team (Latest Contact Info) Description 02/24/2024 1:00 PM EDT Hem/Onc Treatment Hematology/Oncolog y Treatment, [address] [phone] Bal[place], Chair 11 Hem Onc [address] [address] Encounter for antineoplastic chemotherapy*; Cancer, [...] as of this encounter (statuses as of 02/24/2024) Medications Medication Sig Dispensed Refills Start Date End Date Status OMEGA-3 FATTY ACIDS 1000 MG PO CAPS 0 07/22/2006 Active Orencia 125 MG/ML Subcutaneous Solution Prefilled Syringe (Abatacept)Indicatio ns:Rheumatoid arthritis involving multiple sites with positive rheumatoid factor ([facility]) INJECT 125 MG ( ONE SYRINGE ) [...] involving multiple sites with positive rheumatoid factor ([facility]) TAKE 1 TABLET BY MOUTH EVERY DAY [...] as of this encounter (statuses as of 02/24/2024) Active Problems Problem Noted Date Diagnosed Date [...] as of this encounter (statuses as of 02/24/2024) Resolved Problems Problem Noted Date Diagnosed Date [...] Thyroiditis 07/18/2008 06/01/2019 Overview: thyroglobulin antibody >3000 [id number] 08/19/200608/10 Overview: Renamed Per Clinical Trials Billing Project. Pt is a participant in the CORRONA (Consortium of Rheumatology Researchers of [place]) national data collection study. For further information please call Dr Temo Castaneda or Kim Ríos, RN, CCRC at [phone] [facility] RESEARCH OTHER*[id number] 08/19/2006 11/06/2009 Overview: Renamed Per Clinical Trials Billing Project. Pt is a participant in the [employer]RON[employer] (Consortium of Rheumatology Researchers of [place]) national data collection study. For further information please call Dr Temo Castaneda or Kim Ríos RN, CCRC at [phone] Arthritis, rheumatoid 07/01/20062016 Abnormal blood chemistry 05/02/2006 Overview: positive rheumatoid factor. Metabolic syndrome 04/29/2006 0 Overview: insulin level 16 Mixed dyslipidemia 02/06/2006 9 Overview: Per Lipid Taxonomy. chol 192, hdl 26, trig 403 Allergic rhinitis due to pollen 01/30/2006 03/03/2017 Obesity, BMI not known 08/07 Overview: Per Obesity Taxonomy Denture irritation 0 documented as of this encounter (statuses as of 02/24/2024) Immunizations Name Administration Dates Next Due COVID-19 [...] Nursing Notes * Francine Lewis RN - 02/24/2024 3:20 PM EDT Patient [...] 1:30 PM EDT Hem/Onc Treatment Hematology/Oncology Treatment, [address] [phone] [place], Chair 8 Hem Onc [facility] 200 [facility] [place] [address] 02/26/2024 4:30 PM EDT Immunization/Injecti on Hematology/Oncology Treatment, [address] [phone] [place], Chair 4 Hem Onc [facility] 200 [facility] [place] [address] 03/15/2024 7:50 AM EST Laboratory Laboratory [facility] [address] [place] [phone] [place], Lab Scenery 200 [facility] [place] [address] 03/15/2024 8:30 AM EST Office Visit Hematology/Oncology [facility] [place] 200 [facility] [place] [phone] Monica Ward MD [address] [place] [address] [place] [address] 03/15/2024 9:00 AM EST Hem/Onc Treatment Hematology/Oncology Treatment, [address] [phone] [place], Chair 5 Hem Onc Scenery 200 [facility] [place] [address] 03/16/2024 8:45 AM EST Hem/Onc Treatment Hematology/Oncology Treatment, [place] [address] [facility] [address] [place], Chair 2 Hem Onc Scenery 200 [facility] [place] [address] 03/17/2024 10:15 AM EST Hem/Onc Treatment Hematology/Oncology Treatment, [place] 200 [facility], [place] [address] [place], Chair 5 Hem Onc Scenery 200 [facility] [place] [address] 07/14/2024 3:00 PM EST Office Visit Pulmonary Medicine, [facility] 132 [facility] [place] [address] Eloy Pond MD [address] [facility] [address] 10/15/2024 8:40 AM EDT Office Visit Rheumatology [address] [place] [address] Samy Russo MD [address] [facility] [place] [address] Health Maintenance Due Date Last Done Comments [...] encounter Medical Devices Implanted Type Area Senior Java Programmer Analyst Device Identifier Shelf Expiration Date Model / Serial / Lot Port Implant W8f Poly Cath - [id number] Implanted:Qty : 1 on 12/31/2023 by Sin Burroughs MD at OR [facility] Right: Chest CR BARD : PERIPHERAL VASCULAR [id number] 10/09/2024 [id number] / / [id number] documented as of this encounter Visit Diagnoses [...] ONCE PRN Other, Hypersensitivity Reaction, Starting on Fri02/24/24 at 1324, Until Fri02/25/24 at 1323, For 24 hours EPINEPHrine 1 MG/ML inj 0.3 mg 0.3 mg, Intramuscular, ONCE PRN Other, Hypersensitivity Reaction or Anaphylaxis, Starting on Fri02/24/24 at 1324, Until Fri02/25/24 at 1323, For 24 hours hEParin 100 UNIT/ML Lock Flush inj 500 Units 500 Units (5 mL), IV Lock, PRN Other, IV Flush, Starting on Fri02/24/24 at 1324, Until Fri02/25/24 at 1323, For 24 hours, Do not flush if lock, PICC, or central line not in place; IV infusing or unable to flush. Given 02/24/2024 2:58 PM EDT 500 Units Hydrocortisone Sod Suc (PF) (Solu-Cortef) inj 100 mg 100 mg, IV Push, ONCE PRN Other, Hypersensitivity Reaction, Starting on Fri02/24/24 at 1324, Until Fri02/25/24 at 1323, For 24 hours LORAzepam (Ativan) tab 0.5 mg 0.5 mg, Oral, ONCE PRN Anxiety, Nausea, Starting on Fri02/24/24 at 1430, Until Discontinued NSS infusion Intravenous, at 50 mL/hr, PRN, Starting on Fri02/24/24 at 1430, Until Discontinued, Maintenance line Start Infusion 02/24/2024 1:26 PM EDT 50 mL/hr oxygen GAS Inhalation, OXYGEN, First dose on Fri02/24/24 at 1600, Until Discontinued, Device/Managed by: Low [...] Flush, Starting on Fri02/24/24 at 1324, Until Fri02/25/24 at 1323, For 24 hours, Do not flush if lock, PICC, or central line not in place; IV infusing or unable to flush. Given 02/24/2024 2:57 PM EDT 10 mL Inactive Administered Medications [...] micron low protein binding filter. Start Infusion 02/24/2024 1:52 PM EDT 190 mg 519.5 mL/hr ondansetron (Zofran) tab 8 mg 8 mg, Oral, ONCE, On Fri02/24/24 at 1430, For 1 dose, Give 30 minutes prior to chemotherapy. Given 02/24/2024 1:36 PM EDT 8 mg documented in this encounter Care Teams Yoghurt Maker Relationship Specialty Start Date End Date Edel Clay MD [address] [place] [address] [place] [phone] PCP - General Family Medicine 03/03/17 documented as of this encounter
--- OUTSIDE RECORDS SUMMARY | 2024-06-12 02:28 | External Medical Summary | Summary of Care ---
Author Name Unknown Organization [facility] Address [address] [place] [address] Phone [phone] Care Team Providers Care Electrical Parts Reconditioner Name Role Phone Edel Clay MD Primary [...] Procedures PENDING TECENTRIQ & Monica Anderson MD [address] [place] [address] [place] [address] Anc Hem/Onc Scenery [address] [address] Referral ID Status Reason Start Date Expiration Date V isits Requested Visits Authorized [id number] Authorized 12/17/2023 06/13/2024 999 999 Encounter Details Date Type Department Care Team (Latest Contact Info) Description 01/15/2024 12:00 PM EDT Hem/Onc Treatment Hematology/Oncolog y Treatment, [address] [address] [place], Chair 6 Hem Onc [address] [address] Encounter for antineoplastic chemotherapy*; Cancer, [...] Thyroiditis 07/18/2008 06/01/2019 Overview: thyroglobulin antibody >3000 [id number] 08/19/200608/10 Overview: Renamed Per Clinical Trials Billing Project. Pt is a participant in the [employer]RON[employer] (Consortium of Rheumatology Researchers of [place]) national data collection study. For further information please call Dr Temo Castaneda or Kim Ríos RN, CCRC at [phone] [facility] RESEARCH OTHER*[id number] 08/19/2006 11/06/2009 Overview: Renamed Per Clinical Trials Billing Project. Pt is a participant in the [employer]RON[employer] (Consortium of Rheumatology Researchers of [place]) national data collection study. For further information please call Dr Temo Castaneda or Kim Ríos, RN, CCRC at [phone] Arthritis, rheumatoid 07/01/20062016 Abnormal blood chemistry 05/02/2006 [...] - 01/15/2024 3:20 PM EDT Chair 10, [id number]. Pt has no new symptoms/concerns to report [...] 1:30 PM EDT Hem/Onc Treatment Hematology/Oncology Treatment, [address] [place] [phone] [place], Chair 8 Hem Onc [address] [place] [address] 02/26/2024 4:30 PM EDT Immunization/Injecti on Hematology/Oncology Treatment, [place] 200 [facility] [place] [phone] Balb[place], Chair 4 Hem Onc Scenery 200 [facility] [place] [address] 03/15/2024 7:50 AM EST Laboratory Laboratory [facility] [place] 200 [facility] [place] [phone] [place], Lab Scenery 200 [facility] [place] [address] 03/15/2024 8:30 AM EST Office Visit Hematology/Oncology Scenery [facility] [address] [place] [phone] Monica Ward MD 400 [facility] [place] [address] 03/15/2024 9:00 AM EST Hem/Onc Treatment Hematology/Oncology Treatment, [place] 200 [facility] [phone] [place], Chair 5 Hem Onc Scenery [address] [place], [place] [address] 03/16/2024 8:45 AM EST Hem/Onc Treatment Hematology/Oncology Treatment, [place] 200 [facility], [place] [phone] Bal[place], Chair 2 Hem Onc Scenery 200 [facility] [place], [place] [address] 03/17/2024 10:15 AM EST Hem/Onc Treatment Hematology/Oncology Treatment, [place] 200 [facility] [phone] Balb[place], Chair 5 Hem Onc Scenery [address] [place], [place] [address] 07/14/2024 3:00 PM EST Office Visit Pulmonary Medicine, [facility] 132 [facility] [place] [address] Eloy Pond MD [address] [place] [address] 10/15/2024 8:40 AM EDT Office Visit Rheumatology [address] [place] [phone] Samy Russo MD [address] [facility] [place] [address] Health Maintenance Due Date Last Done Comments [...] this encounter Medical Devices Implanted Type Area Shirt Cleaner Device Identifier Shelf Expiration Date Model / Serial / Lot Port Implant W8f Poly Cath - [id number] Implanted:Qty : 1 on 12/31/2023 by Sin Burroughs MD at OR [facility] Right: Chest CR BARD : PERIPHERAL VASCULAR [id number] 10/09/2024 [id number] / / [id number] documented as of this encounter Visit Diagnoses [...] mL documented in this encounter Care Teams Electrical Parts Reconditioner Relationship Specialty Start Date End Date Edel Clay MD [address] [place] [address] [place] [address] PCP - General Family Medicine 03/03/17 documented as of this encounter
--- OUTSIDE RECORDS SUMMARY | 2024-06-12 02:28 | External Medical Summary | Summary of Care ---
Author Name Unknown Organization [facility] Address [address] [place] [address] Phone [phone] Care Team Providers Care General Assembler Installer Name Role Phone Edel [place] MD Primary Care Provide r Reason for Visit * Reason Comments Chemotherapy C2/D1 - Tecentriq, c arbo, etoposide * Episode Based Medications (Routine) - Authorized Specialty Diagnoses / Procedures Referred By Contac t Referred To Contact Diagnoses Encounter for antineoplastic chemotherapy Cancer, metastatic to bone (HCC) Metastatic adenocarcinoma to liver (HCC) Small cell lung cancer, right (HCC) Procedures PENDING TECENTRIQ & HALEIGHPHILA Monica Ward MD [address] [place] [address] [place] [address] Anc Hem/Onc Scene[address] [address] Referral ID Status Reason Start Date Expiration Date V isits Requested Visits Authorized [id number] Authorized 12/17/2023 06/13/2024 999 999 Encounter Details Date Type Department Care Team (Latest Contact Info) Description 01/13/2024 12:00 PM EDT Hem/Onc Treatment Hematology/Oncolog y Treatment, [address] [address] [place], Chair [address] [place] [address] Encounter for antineoplastic chemotherapy*; Cancer, metastatic [...] Thyroiditis 07/18/2008 06/01/2019 Overview: thyroglobulin antibody >3000 [id number] 08/19/200608/10 Overview: Renamed Per Clinical Trials Billing Project. Pt is a participant in the [employer]RON[employer] (Consortium of Rheumatology Researchers of [place]) national data collection study. For further information please call Dr Temo Castaneda or Kim Ríos, RN, CCRC at [phone] [employer] RESEARCH OTHER*[id number] 08/19/2006 11/06/2009 Overview: Renamed Per Clinical Trials Billing Project. Pt is a participant in the CORRONA (Consortium of Rheumatology Researchers of [place]) national data collection study. For further information please call Dr Temo Castaneda or Kim Ríos, RN, CCRC at [phone] Arthritis, rheumatoid 07/01/20062016 Abnormal blood chemistry 05/02/2006 [...] Sign Reading Time Taken Comments Blood Pressure 134/71 01/13/2024 12:31 PM EDT Pulse 68 01/13/2024 12:31 PM EDT Temperature 36.7 C (98 F) 01/13/2024 12: 31 PM EDT Respiratory Rate 16 01/13/2024 12:3 1 PM EDT Oxygen Saturation 97% 01/13/2024 12: 31 PM EDT Inhaled Oxygen Concentration - - Weight 84.3 kg (185 lb 12.8 oz) 024 12:31 PM EDT Height - - Body Mass Index 32.91 12/31/2023 11:59 AM EDT documented in this encounter Nursing Notes * Madeline Crocker RN - 01/13/2024 5:28 PM EDT Goals: Patient will remain free from injury. Possible barriers to meeting goals: ambulaitng with IV pole, hip pain Stability of the patient: Moderately stable - low risk of patient condition declining or worsening Summary regarding today's goals: Met: pt remained free of harm today Patient tolerated treatment well without any acute issues or problems. Patient left facility in stable condition and denied any further needs. * Madeline Crocker RN - 01/13/2024 5:18 PM EDT Chair 11. Port accessed, no issues. Patient is overall feeling well today, no acute issues or complaints. Chemotherapy/Immunotherapy agents: TECENTRIQ, CARBOPLATIN, and ETOPOSIDE Consent for chemotherapy drug treatment complete, dated, and signed? yes, date - 12/12/2023 Treatment lab parameters met? Yes Has treatment weight changed > than 10%? No Treatment preauthorized? Yes VITALS Filed Vitals: 01/13/24 1231 BP: 134/71 Pulse: 68 Resp: 16 Temp: 36.7 C (98 F) TempSrc: Tympanic SpO2: 97% Weight: 84.3 kg (185 lb 12.8 oz) Urine protein: N/A Patient education completed for [...] using the heat function. PRE-TREATMENT ASSESSMENT: NEURO: numbness or tingling: states her numbness in her R foot has gone away since starting chemo, had been getting worse before chemo, thinking it was d/t her hip CV/RESP: peripheral edema: did get BLE edema after receiving her tx and it resolved on its own after about 1week GI/: nausea: had one episode of nausea at home about 1 week after tx when she put IcyHot on her R hip for pain relief, she states the smell of it turned her stomach. She laid down for a couple hours and then was fine after waking up OTHER: [place] she had "bone pain" about 1 week after her Fulphila injection, took a Claritin for the pain and she said it resolved PAIN: 3-4 pain location : R hip, ongoing but says her pain has improved a lot since starting chemo Safety and Risk for Injury Patient will remain free from injury. Ensure appropriate safety devices are available. Provide and maintain safe environment. documented in this encounter Plan of Treatment Upcoming Encounters Date Type Department Care Team (Late st Contact Info) Description 02/25/2024 1:30 PM EDT Hem/Onc Treatment Hematology/Oncology Treatment, [address] [phone] [place], Chair 8 Hem On[address] [place] [address] 02/26/2024 4:30 PM EDT Immunization/Injecti on Hematology/Oncology Treatment, [address] [place] [phone] [place], Chair 4 Hem Onc [address] [place] [address] 03/15/2024 7:50 AM EST Laboratory Laboratory [facility] [address] [place], [place] [address] [place], Lab [facility] [address] [place], [place] [address] 03/15/2024 8:30 AM EST Office Visit Hematology/Oncology [facility] [address] [place], [place] [phone] Monica Ward MD [address] [place] [address] [place] [address] 03/15/2024 9:00 AM EST Hem/Onc Treatment Hematology/Oncology Treatment, [place] 200 [facility], [place] [address] [place], Chair 5 Hem Onc Scenery 200 [facility] [place], [place] [address] 03/16/2024 8:45 AM EST Hem/Onc Treatment Hematology/Oncology Treatment, [address], [place] [address] [place], Chair 2 Hem Onc Scenery 200 [facility] [place], [place] [address] 03/17/2024 10:15 AM EST Hem/Onc Treatment Hematology/Oncology Treatment, [address], [place] [address] [place], Chair 5 Hem Onc Scenery 200 [facility] [place], [place] [address] 07/14/2024 3:00 PM EST Office Visit Pulmonary Medicine, [facility] [address] [place] [address] Eloy Pond MD [address] [facility] [place] [address] 10/15/2024 8:40 AM EDT Office Visit Rheumatology [address] [place] [phone] Samy Russo MD [facility]0 [facility] [place], [place] [address] Health Maintenance Due Date Last Done Comments [...] this encounter Medical Devices Implanted Type Area Cosmetology Professor Device Identifier Shelf Expiration Date Model / Serial / Lot Port Implant W8f Poly Cath - [id number] Implanted:Qty : 1 on 12/31/2023 by Sin Burroughs MD at OR [facility] Right: Chest CR BARD : PERIPHERAL VASCULAR [id number] 10/09/2024 [id number] / / [id number] documented as of this encounter Visit Diagnoses [...] mg, IV Piggyback, ONCE, 1 dose, On Fri01/13/24 at 1430, Administer over 60 Minutes, Administer first infusion over 60 minutes and if tolerated, subsequent doses may be infused over 30 minutes. Start Infusion 01/13/2024 1:53 PM EDT 1,200 mg 550 mL/hr CARBOplatin (Paraplatin) 483 mg in D5W 250 mL infusion 483 mg (rounded from 482.5 mg, Target AUC = 5), IV Piggyback, at 510 mL/hr Administer over 30 Minutes, PROTECT FROM LIGHT (Max Creatinine Clearance at 125 ml/min for calculating AUC dose), ONCE, 1 dose, On Fri01/13/24 at 1530 Start Infusion 01/13/2024 2:47 PM EDT 483 mg 510 mL/hr etoposide (VEPESID) 190 mg in NSS 500 mL infusion 190 mg (rounded from 193 mg = 100 mg/m2 1.93 m2 Treatment Plan BSA from Recorded weight), IV Piggyback, ONCE, 1 dose, On Fri01/13/24 at 1600, Administer over 60 Minutes, Recommended concentration is less than or equal to 0.4 mg/mL. If concentration is greater than 0.4 mg/mL recommend to administer through 0.22 micron low protein binding filter. Start Infusion 01/13/2024 3:27 PM EDT 190 mg 519.5 mL/hr Fosaprepitant Dimeglumine (Emend) 150 mg, ondansetron (Zofran) 16 mg, dexamethasone sodium phosphate 12 mg in NSS 250 mL Infusion 150 mg, IV Piggyback, ONCE, 1 dose, On Fri01/13/24 at 1400, Administer over 30 Minutes, Infuse over 30 minutes. Give 30 minutes prior to chemotherapy. Start Infusion 01/13/2024 12:59 PM EDT 150 mg 538.4 mL/hr hEParin 100 UNIT/ML Lock Flush inj 500 Units 500 Units (5 mL), IV Lock, PRN Other, IV Flush, Starting on Fri01/13/24 at 1245, Until Fri01/13/24 at 2131, For 24 hours, Do not flush if lock, PICC, or central line not in place; IV infusing or unable to flush. Given 01/13/2024 4:29 PM EDT 500 Units NSS infusion Intravenous, at 50 mL/hr, PRN, Starting on Fri01/13/24 at 1400, Until Fri01/13/24 at 2131, Maintenance line Start Infusion 01/13/2024 12:57 PM EDT 50 mL/hr sodium chloride 0.9 % flush central line 10 mL 10 mL, IV Push, PRN Other, IV Flush, Starting on Fri01/13/24 at 1245, Until Fri01/13/24 at 2131, For 24 hours, Do not flush if lock, PICC, or central line not in place; IV infusing or unable to flush. Given 01/13/2024 4:29 PM EDT 10 mL documented in this encounter Care Teams General Assembler Installer Relationship Specialty Start Date End Date Edel Clay MD [address] [place] [address] [place] [address] PCP - General Family Medicine 03/03/17 documented as of this encounter
--- OUTSIDE RECORDS SUMMARY | 2024-06-12 02:28 | External Medical Summary | Summary of Care ---
Author Name Unknown Organization [facility] Address [address] [place] [address] Phone [phone] Care Team Providers Care Mergers And Acquisitions Consultant Name Role Phone Edel [place] MD [...] PENDING TECENTRIQ & HALEIGHPHILA Monica Ward MD [address] [place] [address] [place] [phone] Anc Hem/Onc Scene[address] [address] Referral ID Status Reason Start Date Expiration Date V isits Requested Visits Authorized [id number] Authorized 12/17/2023 06/13/2024 999 999 Encounter Details Date Type Department Care Team (Latest Contact Info) Description 01/13/2024 12:00 PM EDT Hem/Onc Treatment Hematology/Oncolog y Treatment, [address] [address] [place], Chair [address] [place] [address] Encounter for antineoplastic chemotherapy*; Cancer, metastatic [...] Thyroiditis 07/18/2008 06/01/2019 Overview: thyroglobulin antibody >3000 [id number][facility] 08/19/200608/10 Overview: Renamed Per Clinical Trials Billing Project. Pt is a participant in the CORRONA (Consortium of Rheumatology Researchers of [place]) national data collection study. For further information please call Dr Temo Castaneda or Kim Ríos, RN, CCRC at [phone] [employer] RESEARCH OTHER*[id number] 08/19/2006 11/06/2009 Overview: Renamed Per Clinical Trials Billing Project. Pt is a participant in the [employer]RON[employer] (Consortium of Rheumatology Researchers of [place]) national data collection study. For further information please call Dr Temo Castaneda or Kim Ríos, RN, CCRC at [phone] Arthritis, rheumatoid 07/01/20062016 Abnormal blood chemistry 05/02/2006 [...] then was fine after waking up OTHER: [place] she had "bone pain" about 1 week [...] 1:30 PM EDT Hem/Onc Treatment Hematology/Oncology Treatment, [address] [phone] [place], Chair 8 Hem Onc [address] [place] [address] 02/26/2024 4:30 PM EDT Immunization/Injecti on Hematology/Oncology Treatment, [address] [place] [phone] [place], Chair 4 Hem Onc [address] [place] [address] 03/15/2024 7:50 AM EST Laboratory Laboratory [facility] [address] [place], [place] [address] [place], Lab [facility] [address] [place], [place] [address] 03/15/2024 8:30 AM EST Office Visit Hematology/Oncology [facility] [address] [place], [place] [phone] Monica Ward MD [address] [place] [address] [place] [address] 03/15/2024 9:00 AM EST Hem/Onc Treatment Hematology/Oncology Treatment, [place] 200 [facility], [place] [address] [place], Chair 5 Hem Onc Scenery 200 [facility] [place], [place] [address] 03/16/2024 8:45 AM EST Hem/Onc Treatment Hematology/Oncology Treatment, [address], [place] [address] [place], Chair 2 Hem Onc Scenery 200 [facility] [place], [place] [address] 03/17/2024 10:15 AM EST Hem/Onc Treatment Hematology/Oncology Treatment, [address], [place] [phone] [place], Chair 5 Hem Onc Scenery 200 [facility] [place], [place] [address] 07/14/2024 3:00 PM EST Office Visit Pulmonary Medicine, [facility] 132 [facility] [place] [address] Eloy Pond MD [address] [facility] [address] 10/15/2024 8:40 AM EDT Office Visit Rheumatology [address] [place] [phone] Samy Russo MD [facility]0 [facility] [place], [place] [address] Health Maintenance Due Date Last Done Comments [...] this encounter Medical Devices Implanted Type Area Nitroglycerin Supervisor Device Identifier Shelf Expiration Date Model / Serial / Lot Port Implant W8f Poly Cath - [id number] Implanted:Qty : 1 on 12/31/2023 by Sin Burroughs MD at OR [facility] Right: Chest CR BARD : PERIPHERAL VASCULAR [id number] 10/09/2024 [id number] / / [id number] documented as of this encounter Visit Diagnoses [...] mL documented in this encounter Care Teams Mergers And Acquisitions Consultant Relationship Specialty Start Date End Date Edel Clay MD [address] [place] [address] [place] [address] PCP - General Family Medicine 03/03/17 documented as of this encounter
--- OUTSIDE RECORDS SUMMARY | 2024-06-12 02:29 | External Medical Summary | Summary of Care ---
Author Name Unknown Organization [facility] Address [address] [place] [address] Phone [phone] Care Team Providers Care Director Of Strategic Marketing Name Role Phone Edel [place] MD Primary [...] PENDING TECENTRIQ & HALEIGHPHILA Monica Ward MD [address] [place] [address] [place] [address] Anc Hem/Onc Scene[address] [address] Referral ID Status Reason Start Date Expiration Date V isits Requested Visits Authorized [id number] Authorized 12/17/2023 06/13/2024 999 999 Encounter Details Date Type Department Care Team (Latest Contact Info) Description 01/13/2024 12:00 PM EDT Hem/Onc Treatment Hematology/Oncolog y Treatment, [address] [address] [place], Chair [address] [place] [address] Encounter for antineoplastic chemotherapy*; Cancer, metastatic [...] Thyroiditis 07/18/2008 06/01/2019 Overview: thyroglobulin antibody >3000 [id number][facility] 08/19/200608/10 Overview: Renamed Per Clinical Trials Billing Project. Pt is a participant in the CORRONA (Consortium of Rheumatology Researchers of [place]) national data collection study. For further information please call Dr Temo Castaneda or Kim Ríos, RN, CCRC at [phone] [employer] RESEARCH OTHER*[id number] 08/19/2006 11/06/2009 Overview: Renamed Per Clinical Trials Billing Project. Pt is a participant in the CORRONA (Consortium of Rheumatology Researchers of [place]) national data collection study. For further information please call Dr Temo Castaneda or Kim Ríos, RN, CCRC at [phone] Arthritis, rheumatoid 07/01/20062016 Abnormal blood chemistry 05/02/2006 [...] then was fine after waking up OTHER: [place] she had "bone pain" about 1 week [...] Care Team (Late st Contact Info) Description 02/24/2024 1:00 PM EDT Hem/Onc Treatment Hematology/Oncology Treatment, [address] [phone] [place], Chair 11 Hem Onc Scenery [address] [place] [address] [place] [address] 02/25/2024 1:30 PM EDT Hem/Onc Treatment Hematology/Oncology Treatment, [address] [place] [phone] [place], Chair 8 Hem Onc Scenery [address] [place] [address] [place] [address] 02/26/2024 4:30 PM EDT Immunization/Injecti on Hematology/Oncology Treatment, [place] 200 [facility], [place] [address] [place], Chair 4 Hem Onc Scenery 200 [facility] [place], [place] [address] 03/15/2024 7:50 AM EST Laboratory Laboratory [facility] [place] [address] [place], [place] [address] [place], Lab [facility] 200 [facility] [place], [place] [address] 03/15/2024 8:30 AM EST Office Visit Hematology/Oncology [facility] [place] 200 [facility] [place], [place] [phone] Monica Ward MD [address] [place] [address] [place] [phone] 03/15/2024 9:00 AM EST Hem/Onc Treatment Hematology/Oncology Treatment, [place] 200 [facility], [place] [address] [place], Chair 5 Hem Onc Scenery 200 [facility] [place], [place] [address] 03/16/2024 8:45 AM EST Hem/Onc Treatment Hematology/Oncology Treatment, [place] 200 [facility], [place] [address] [place], Chair 2 Hem Onc Scenery 200 [facility] [place], [place] [address] 03/17/2024 10:15 AM EST Hem/Onc Treatment Hematology/Oncology Treatment, [place] 200 [facility], [place] [phone] [place], Chair 5 Hem Onc Scenery 200 [facility] [place], [place] [address] 07/14/2024 3:00 PM EST Office Visit Pulmonary Medicine, [facility] [address] [place] [address] Eloy Pond MD [address] [place] [address] 10/15/2024 8:40 AM EDT Office Visit Rheumatology [address] [place] [address] Samy Russo MD [facility] [place] [address] Health Maintenance Due Date Last Done Comments [...] this encounter Medical Devices Implanted Type Area Ball Ender Device Identifier Shelf Expiration Date Model / Serial / Lot Port Implant W8f Poly Cath - [id number] Implanted:Qty : 1 on 12/31/2023 by Sin Burroughs MD at OR [facility] Right: Chest CR BARD : PERIPHERAL VASCULAR [id number] 10/09/2024 [id number] / / [id number] documented as of this encounter Visit Diagnoses [...] mL documented in this encounter Care Teams Director Of Strategic Marketing Relationship Specialty Start Date End Date Edel Clay MD [address] [place] [address] [place] [id number] PCP - General Family Medicine 03/03/17 documented as of this encounter
--- OUTSIDE RECORDS SUMMARY | 2024-06-12 02:29 | External Medical Summary | Summary of Care ---
Author Name Unknown Organization [facility] Address [address] [place] [address] Phone [phone] Care Team Providers Care Machine Splitter Name Role Phone Edel Clay MD Primary [...] PENDING TECENTRIQ & HALEIGHPHILA Monica Ward MD [address] [place] [address] [place] [address] Anc Hem/Onc Scene[address] [address] Referral ID Status Reason Start Date Expiration Date V isits Requested Visits Authorized [id number] Authorized 12/17/2023 06/13/2024 999 999 Encounter Details Date Type Department Care Team (Latest Contact Info) Description 01/13/2024 12:00 PM EDT Hem/Onc Treatment Hematology/Oncolog y Treatment, [address] [address] [place], Chair [address] [place] [address] Encounter for antineoplastic chemotherapy*; Cancer, metastatic [...] Thyroiditis 07/18/2008 06/01/2019 Overview: thyroglobulin antibody >3000 [id number][facility] 08/19/200608/10 Overview: Renamed Per Clinical Trials Billing Project. Pt is a participant in the CORRONA (Consortium of Rheumatology Researchers [place]) national data collection study. For further information please call Dr Temo Castaneda or Kim Ríos, RN, CCRC at [phone] [employer] RESEARCH OTHER*[id number] 08/19/2006 11/06/2009 Overview: Renamed Per Clinical Trials Billing Project. Pt is a participant in the [employer]RON[employer] (Consortium of Rheumatology Researchers [place]) national data collection study. For further information please call Dr Teom Castaneda or Kim Ríos, RN, CCRC at [phone] Arthritis, rheumatoid 07/01/20062016 Abnormal blood chemistry 05/02/2006 [...] then was fine after waking up OTHER: [place] she had "bone pain" about 1 week [...] 1:30 PM EDT Hem/Onc Treatment Hematology/Oncology Treatment, [address] [phone] [place], Chair 8 Hem Onc [address] [place] [address] 02/26/2024 4:30 PM EDT Immunization/Injecti on Hematology/Oncology Treatment, [address] [place] [phone] [place], Chair 4 Hem Onc [address] [place] [address] 03/15/2024 7:50 AM EST Laboratory Laboratory [facility] [address] [place], [place] [address] [place], Lab [facility] [address] [place], [place] [address] 03/15/2024 8:30 AM EST Office Visit Hematology/Oncology [facility] [address] [place], [place] [phone] Monica Ward MD [address] [place] [address] [place] [address] 03/15/2024 9:00 AM EST Hem/Onc Treatment Hematology/Oncology Treatment, [place] 200 [facility], [place] [address] [place], Chair 5 Hem Onc Scenery 200 [facility] [place], [place] [address] 03/16/2024 8:45 AM EST Hem/Onc Treatment Hematology/Oncology Treatment, [address], [place] [address] [place], Chair 2 Hem Onc Scenery 200 [facility] [place], [place] [address] 03/17/2024 10:15 AM EST Hem/Onc Treatment Hematology/Oncology Treatment, [address], [place] [address] [place], Chair 5 Hem Onc Scenery 200 [facility] [place], [place] [address] 07/14/2024 3:00 PM EST Office Visit Pulmonary Medicine, [facility] 132 [facility] [place] [address] Eloy Pond MD [address] [facility] [place] [address] 10/15/2024 8:40 AM EDT Office Visit Rheumatology [address] [place] [phone] Samy Russo MD [facility]0 [facility] [place], [place] [address] Health Maintenance Due Date Last Done Comments [...] this encounter Medical Devices Implanted Type Area Pmp Project Manager Device Identifier Shelf Expiration Date Model / Serial / Lot Port Implant W8f Poly Cath - [id number] Implanted:Qty : 1 on 12/31/2023 by Sin Burroughs MD at OR [facility] Right: Chest CR BARD : PERIPHERAL VASCULAR [id number] 10/09/2024 [id number] / / [id number] documented as of this encounter Visit Diagnoses [...] mL documented in this encounter Care Teams Machine Splitter Relationship Specialty Start Date End Date Edel Clay MD [address] [place] [address] [place] [address] PCP - General Family Medicine 03/03/17 documented as of this encounter
--- OUTSIDE RECORDS SUMMARY | 2024-06-12 02:29 | External Medical Summary | Summary of Care ---
Author Name Unknown Organization [facility] Address [address] [place] [address] Phone [phone] Care Team Providers Care Social And Political Studies Professor Name Role Phone Edel Clay MD Primary [...] Procedures PENDING TECENTRIQ & Monica Anderson MD [address] [place] [address] [place] [address] Anc Hem/Onc Scenery [address] [address] Referral ID Status Reason Start Date Expiration Date V isits Requested Visits Authorized [id number] Authorized 12/17/2023 06/13/2024 999 999 Encounter Details Date Type Department Care Team (Latest Contact Info) Description 02/23/2024 8:30 AM EDT Hem/Onc Treatment Hematology/Oncolog y Treatment, [address] [address] [place] Chair 4 Hem Onc [facility] [place] [address] [place] [address] Encounter for antineoplastic chemotherapy*; Cancer, metastatic to bone (HCC); Metastatic adenocarcinoma to liver (HCC); Small cell lung cancer, right ([facility]) Allergies Active Allergy Reactions Criticality Noted Date Comments Clindamycin Hives 08/26/2014 Codeine 10/25/2011 "Stupor", drowsy Other Allergy (See Comments) 024 Perfumes, hairspray, candles, etc. Sinus infections, headaches, very sensitive. Penicillins 01/30/2006 Hives ans swelling Sulfa Antibiotics 06/29/2010 Sick to her stomach documented as of this encounter (statuses as of 02/23/2024) Medications Medication Sig Dispensed Refills Start Date End Date Status OMEGA-3 FATTY ACIDS 1000 MG PO CAPS 0 07/22/2006 Active Orencia 125 MG/ML Subcutaneous Solution Prefilled Syringe (Abatacept)Indicatio ns:Rheumatoid arthritis involving multiple sites with positive rheumatoid factor ([facility]) INJECT 125 MG ( ONE SYRINGE ) [...] multiple sites with positive rheumatoid factor ([facility]) TAKE 1 TABLET BY MOUTH EVERY DAY [...] as of this encounter (statuses as of 02/23/2024) Active Problems Problem Noted Date Diagnosed Date [...] as of this encounter (statuses as of 02/23/2024) Resolved Problems Problem Noted Date Diagnosed Date [...] Thyroiditis 07/18/2008 06/01/2019 Overview: thyroglobulin antibody >3000 [id number] 08/19/200608/10 Overview: Renamed Per Clinical Trials Billing Project. Pt is a participant in the [employer] (Consortium of Rheumatology Researchers of [place]) national data collection study. For further information please call Dr Temo Castaneda or Kim Ríos, RN, CCRC at [phone] [facility] RES[facility] OTHER*[id number] 08/19/2006 11/06/2009 Overview: Renamed Per Clinical Trials Billing Project. Pt is a participant in the [employer] (Consortium of Rheumatology Researchers of [place]) national data collection study. For further information please call Dr Temo Castaneda or Kim Ríos, RN, CCRC at [phone] Arthritis, rheumatoid 07/01/20062016 Abnormal blood chemistry 05/02/2006 01/ Overview: positive rheumatoid factor. Metabolic syndrome 04/29/2006 0 Overview: insulin level 16 Mixed dyslipidemia 02/06/2006 9 Overview: Per Lipid Taxonomy. chol 192, hdl 26, trig 403 Allergic rhinitis due to pollen 01/30/2006 03/03/2017 Obesity, BMI not known 08/07 Overview: Per Obesity Taxonomy Denture irritation 0 documented as of this encounter (statuses as of 02/23/2024) Immunizations Name Administration Dates Next Due COVID-19 [...] 1:00 PM EDT Hem/Onc Treatment Hematology/Oncology Treatment, [address] [address] [place], Chair 11 Hem Onc [address] [address] 02/25/2024 1:30 PM EDT Hem/Onc Treatment Hematology/Oncology Treatment, [address] [place] [phone] [place], Chair 8 Hem Onc Scenery [address] [place], [place] [address] 02/26/2024 4:30 PM EDT Immunization/Injecti on Hematology/Oncology Treatment, [place] 200 [facility], [place] [address] [place], Chair 4 Hem Onc Scenery [address] [place], [place] [address] 03/15/2024 7:50 AM EST Laboratory Laboratory Scenery [place] [address] [place] [address] [place], Lab Scenery [address] [facility] [place] [address] 03/15/2024 8:30 AM EST Office Visit Hematology/Oncology Scenery [place] [address] [place], [place] [phone] Monica Ward MD [address] [place], [place] [address] [address] 03/15/2024 9:00 AM EST Hem/Onc Treatment Hematology/Oncology Treatment, [place] 200 [facility], [place] [address] [place], Chair 5 Hem Onc Scenery [address] [place], [place] [address] 03/16/2024 8:45 AM EST Hem/Onc Treatment Hematology/Oncology Treatment, [place] 200 [facility], [place] [address] [place], Chair 2 Hem Onc Scenery [address] [place], [place] [address] 03/17/2024 10:15 AM EST Hem/Onc Treatment Hematology/Oncology Treatment, [place] 200 [facility], [place] [address] [place], Chair 5 Hem Onc Scenery [address] [place] [address] 07/14/2024 3:00 PM EST Office Visit Pulmonary Medicine, [facility] [address] [facility] [place] [address] Eloy Pond MD [address] [facility] [place] [address] 10/15/2024 8:40 AM EDT Office Visit Rheumatology [address] [place] [address] Samy Russo MD [address] [facility] [place] [address] Health Maintenance Due Date Last Done Comments [...] 09/12/2023, 08/11, 08/29/2020, Additional history exists TSH 02/01/2025 02/02/2024, 07/11, 08/05/2022, Additional history exists Lipid Panel 05/19/2025 05/19/2020, [...] this encounter Medical Devices Implanted Type Area Scientific Recruiter Device Identifier Shelf Expiration Date Model / Serial / Lot Port Implant W8f Poly Cath - [id number] Implanted:Qty : 1 on 12/31/2023 by Sin Burroughs MD at OR [facility] Right: Chest CR BARD : PERIPHERAL VASCULAR [id number] 10/09/2024 [id number] / / [id number] documented as of this encounter Visit Diagnoses [...] ONCE PRN Other, Hypersensitivity Reaction, Starting on Fri02/23/24 at 0901, Until Fri02/24/24 at 0900, For 24 hours EPINEPHrine 1 MG/ML inj 0.3 mg 0.3 mg, Intramuscular, ONCE PRN Other, Hypersensitivity Reaction or Anaphylaxis, Starting on Fri02/23/24 at 0901, Until Fri02/24/24 at 0900, For 24 hours hEParin 100 UNIT/ML Lock Flush inj 500 Units 500 Units (5 mL), IV Lock, PRN Other, IV Flush, Starting on Fri02/23/24 at 0901, Until Fri02/24/24 at 0900, For 24 hours, Do not flush if lock, PICC, or central line not in place; IV infusing or unable to flush. Given 02/23/2024 1:15 PM EDT 500 Units Hydrocortisone Sod Suc (PF) (Solu-Cortef) inj 100 mg 100 mg, IV Push, ONCE PRN Other, Hypersensitivity Reaction, Starting on Fri02/23/24 at 0901, Until Fri02/24/24 at 0900, For 24 hours LORAzepam (Ativan) tab 0.5 mg 0.5 mg, Oral, ONCE PRN Anxiety, Nausea, Starting on Fri02/23/24 at 1015, Until Discontinued NSS infusion Intravenous, at 50 mL/hr, PRN, Starting on Fri02/23/24 at 1015, Until Discontinued, Maintenance line Start Infusion 02/23/2024 9:02 AM EDT 50 mL/hr oxygen GAS Inhalation, OXYGEN, First dose on Fri02/23/24 at 0945, Until Discontinued, Device/Managed by: Low [...] Flush, Starting on Fri02/23/24 at 0901, Until Fri02/24/24 at 0900, For 24 hours, Do not flush if lock, PICC, or central line not in place; IV infusing or unable to flush. Given 02/23/2024 1:15 PM EDT 10 mL Inactive Administered Medications [...] 9:17 AM EDT 150 mg 538.4 mL/hr documented in this encounter Care Teams Social And Political Studies Professor Relationship Specialty Start Date End Date Edel Clay MD [address] [place] [address] [place] [address] PCP - General Family Medicine 03/03/17 documented as of this encounter
--- OUTSIDE RECORDS SUMMARY | 2024-06-12 02:29 | External Medical Summary | Summary of Care ---
Author Name Unknown Organization [facility] Address [address] [place] [address] Phone [phone] Care Team Providers Care Reference Librarian Name Role Phone Edel Clay MD Primary [...] Procedures PENDING TECENTRIQ & Monica Anderson MD [address] [place], [place] [address] [phone] Anc Hem/Onc Scenery [address] [address] Referral ID Status Reason Start Date Expiration Date V isits Requested Visits Authorized [id number] Authorized 12/17/2023 06/13/[phone] Encounter Details Date Type Department Care Team (Latest Contact Info) Description 01/14/2024 2:30 PM EDT Hem/Onc Treatment Hematology/Oncolog y Treatment, [address] [phone] [place], Chair 10 Hem Onc [address] [address] Encounter for antineoplastic chemotherapy*; Cancer, [...] sites with positive rheumatoid factor ([facility]) INJECT 125 MG ( ONE SYRINGE ) [...] Thyroiditis 07/18/2008 06/01/2019 Overview: thyroglobulin antibody >3000 [id number][facility] 08/19/200608/10 Overview: Renamed Per Clinical Trials Billing Project. Pt is a participant in the [employer]RON[employer] (Consortium of Rheumatology Researchers of [place]) national data collection study. For further information please call Dr Temo Castaneda or Kim Ríos RN, CCRC at [phone] [facility] RESEARCH OTHER*[id number] 08/19/2006 11/06/2009 Overview: Renamed Per Clinical Trials Billing Project. Pt is a participant in the [employer] (Consortium of Rheumatology Researchers of [place]) national data collection study. For further information please call Dr Temo Castaneda or Kim Ríos, RN, CCRC at [phone] Arthritis, rheumatoid 07/01/20062016 Abnormal blood chemistry 05/02/2006 [...] 1:00 PM EDT Hem/Onc Treatment Hematology/Oncology Treatment, [place] [address] [place] [phone] [place], Chair 11 Hem Onc Scenery [address] [place] [address] 02/25/2024 1:30 PM EDT Hem/Onc Treatment Hematology/Oncology Treatment, [place] [address] [place] [address] [place], Chair 8 Hem Onc Scenery [address] [place], [place] [address] 02/26/2024 4:30 PM EDT Immunization/Injecti on Hematology/Oncology Treatment, [place] [address] [place] [address] [place], Chair 4 Hem Onc Scenery [address] [place], [place] [address] 03/15/2024 7:50 AM EST Laboratory Laboratory [facility] [place] [address] [place], [place] [address] [place], Lab Scenery [address] [place], [place] [address] 03/15/2024 8:30 AM EST Office Visit Hematology/Oncology [facility] [address] [place], [place] [phone] Monica Ward MD [address] [place] [address] [place] [phone] 03/15/2024 9:00 AM EST Hem/Onc Treatment Hematology/Oncology Treatment, [place] [address] [facility], [place] [address] [place], Chair 5 Hem Onc Scenery [address] [place] [address] 03/16/2024 8:45 AM EST Hem/Onc Treatment Hematology/Oncology Treatment, [place] [address] [facility], [place] [address] [place], Chair 2 Hem Onc Scenery [address] [place] [address] 03/17/2024 10:15 AM EST Hem/Onc Treatment Hematology/Oncology Treatment, [place] [address] [place] [address] Park, Chair 5 Hem Onc Scenery [address] [place] [address] 07/14/2024 3:00 PM EST Office Visit Pulmonary Medicine, [facility] 132 [facility] [place] [address] Eloy Pond MD [address] [place] [address] 10/15/2024 8:40 AM EDT Office Visit Rheumatology [address] [place] [address] Samy Russo MD [address] [facility] [place] [address] Health Maintenance Due Date Last Done Comments [...] this encounter Medical Devices Implanted Type Area Document Control Coordinator Device Identifier Shelf Expiration Date Model / Serial / Lot Port Implant W8f Poly Cath - [id number] Implanted:Qty : 1 on 12/31/2023 by Sin Burroughs MD at OR [facility] Right: Chest CR BARD : PERIPHERAL VASCULAR [id number] 10/09/2024 [id number] / / [id number] documented as of this encounter Visit Diagnoses [...] mg documented in this encounter Care Teams Reference Librarian Relationship Specialty Start Date End Date Edel Clay MD [address] [place] [address] [place] [address] PCP - General Family Medicine 03/03/17 documented as of this encounter
--- OUTSIDE RECORDS SUMMARY | 2024-06-12 02:29 | External Medical Summary | Summary of Care ---
Author Name Unknown Organization [facility] Address [address] [place] [address] Phone [phone] Care Team Providers Care Service Team Leader Name Role Phone Edel Clay MD Primary [...] PENDING TECENTRIQ & HALEIGHPHILA Monica Ward MD [address] [place] [address] [place] [phone] Anc Hem/Onc [address] [address] Referral ID Status Reason Start Date Expiration Date V isits Requested Visits Authorized [id number] Authorized 12/17/2023 06/13/[phone] Encounter Details Date Type Department Care Team (Latest Contact Info) Description 01/13/2024 12:00 PM EDT Hem/Onc Treatment Hematology/Oncolog y Treatment, [address] [address] [place], Chair 1 Hem Onc [address] [place] [address] Encounter for antineoplastic chemotherapy*; Cancer, metastatic [...] Thyroiditis 07/18/2008 06/01/2019 Overview: thyroglobulin antibody >3000 [id number] 08/19/200608/10 Overview: Renamed Per Clinical Trials Billing Project. Pt is a participant in the [employer] (Consortium of Rheumatology Researchers of [place]) national data collection study. For further information please call Dr Temo Castaneda or Kim Ríos, RN, CCRC at [phone] [facility] RESEARCH OTHER*[id number] 08/19/2006 11/06/2009 Overview: Renamed Per Clinical Trials Billing Project. Pt is a participant in the [employer]RON[employer] (Consortium of Rheumatology Researchers of [place]) national data collection study. For further information please call Dr Temo Castaneda or Kim Ríos, RN, CCRC at [phone] Arthritis, rheumatoid 07/01/20062016 Abnormal blood chemistry 05/02/2006 [...] then was fine after waking up OTHER: [place] she had "bone pain" about 1 week [...] 1:00 PM EDT Hem/Onc Treatment Hematology/Oncology Treatment, [address] [phone] [place], Chair 11 Hem Onc Scenery [address] [place] [address] [place] [address] 02/25/2024 1:30 PM EDT Hem/Onc Treatment Hematology/Oncology Treatment, [address] [place] [phone] [place], Chair 8 Hem Onc Scenery [address] [place] [address] [place] [address] 02/26/2024 4:30 PM EDT Immunization/Injecti on Hematology/Oncology Treatment, [place] 200 [facility], [place] [address] Bal[place], Chair 4 Hem Onc Scenery 200 [facility] [place], [place] [address] 03/15/2024 7:50 AM EST Laboratory Laboratory [facility] [place] [address] [place], [place] [address] [place], Lab [facility] 200 [facility] [place], [place] [address] 03/15/2024 8:30 AM EST Office Visit Hematology/Oncology [facility] [place] 200 [facility] [place], [place] [phone] Monica Ward MD [address] [place] [address] [place] [phone] 03/15/2024 9:00 AM EST Hem/Onc Treatment Hematology/Oncology Treatment, [place] 200 [facility], [place] [address] [place], Chair 5 Hem Onc Scenery 200 [facility] [place], [place] [address] 03/16/2024 8:45 AM EST Hem/Onc Treatment Hematology/Oncology Treatment, [place] 200 [facility], [place] [address] [place], Chair 2 Hem Onc Scenery 200 [facility] [place], [place] [address] 03/17/2024 10:15 AM EST Hem/Onc Treatment Hematology/Oncology Treatment, [place] 200 [facility], [place] [phone] [place], Chair 5 Hem Onc Scenery 200 [facility] [place], [place] [address] 07/14/2024 3:00 PM EST Office Visit Pulmonary Medicine, [facility] [address] [place] [address] Eloy Pond MD [address] [place] [address] 10/15/2024 8:40 AM EDT Office Visit Rheumatology [address] [place] [address] Samy Russo MD [address] [facility] [place] [address] Health Maintenance Due Date Last Done Comments [...] this encounter Medical Devices Implanted Type Area Marine Technician Device Identifier Shelf Expiration Date Model / Serial / Lot Port Implant W8f Poly Cath - [id number] Implanted:Qty : 1 on 12/31/2023 by Sin Burroughs MD at OR [facility] Right: Chest CR BARD : PERIPHERAL VASCULAR [id number] 10/09/2024 [id number] / / [id number] documented as of this encounter Visit Diagnoses [...] mL documented in this encounter Care Teams Service Team Leader Relationship Specialty Start Date End Date Edel Clay MD [address] [place] [address] [place] [address] PCP - General Family Medicine 03/03/17 documented as of this encounter
--- OUTSIDE RECORDS SUMMARY | 2024-06-12 02:29 | External Medical Summary | Summary of Care ---
Author Name Unknown Organization [facility] Address [address] [place] [address] Phone [phone] Care Team Providers Care Capacity Analyst Name Role Phone Edel Clay MD [...] PENDING TECENTRIQ & HALEIGHPHILA Monica Ward MD [address] [place] [address] [place] [address] Anc Hem/Onc [address] [address] Referral ID Status Reason Start Date Expiration Date V isits Requested Visits Authorized [id number] Authorized 12/17/2023 06/13/2024 999 999 Encounter Details Date Type Department Care Team (Latest Contact Info) Description 01/13/2024 12:00 PM EDT Hem/Onc Treatment Hematology/Oncolog y Treatment, [address] [address] [place], Chair 1 [address] [place] [address] Encounter for antineoplastic chemotherapy*; Cancer, metastatic [...] Thyroiditis 07/18/2008 06/01/2019 Overview: thyroglobulin antibody >3000 [id number][facility] 08/19/200608/10 Overview: Renamed Per Clinical Trials Billing Project. Pt is a participant in the [employer] (Consortium of Rheumatology Researchers of [place]) national data collection study. For further information please call Dr Temo Castaneda or Kim Ríos, RN, CCRC at [phone] [facility] RESEARCH OTHER*[id number] 08/19/2006 11/06/2009 Overview: Renamed Per Clinical Trials Billing Project. Pt is a participant in the [employer] (Consortium of Rheumatology Researchers of [place]) national data collection study. For further information please call Dr Temo Castaneda or Kim Ríos, RN, CCRC at [phone] Arthritis, rheumatoid 07/01/20062016 Abnormal blood chemistry 05/02/2006 [...] then was fine after waking up OTHER: [place] she had "bone pain" about 1 week [...] 1:30 PM EDT Hem/Onc Treatment Hematology/Oncology Treatment, [address] [phone] [place], Chair 8 Hem Onc [address] [place] [address] 02/26/2024 4:30 PM EDT Immunization/Injecti on Hematology/Oncology Treatment, [address] [place] [phone] [place], Chair 4 Hem Onc [address] [place] [address] 03/15/2024 7:50 AM EST Laboratory Laboratory [facility] [address] [place], [place] [phone] [place], Lab [facility] [address] [place], [place] [address] 03/15/2024 8:30 AM EST Office Visit Hematology/Oncology [facility] [address] [place], [place] [phone] Monica Ward MD [address] [place] [address] [place] [address] 03/15/2024 9:00 AM EST Hem/Onc Treatment Hematology/Oncology Treatment, [place] 200 [facility], [place] [address] [place], Chair 5 Hem Onc Scenery 200 [facility] [place], [place] [address] 03/16/2024 8:45 AM EST Hem/Onc Treatment Hematology/Oncology Treatment, [address], [place] [address] [place], Chair 2 Hem Onc Scenery 200 [facility] [place], [place] [address] 03/17/2024 10:15 AM EST Hem/Onc Treatment Hematology/Oncology Treatment, [address], [place] [address] [place], Chair 5 Hem Onc Scenery 200 [facility] [place], [place] [address] 07/14/2024 3:00 PM EST Office Visit Pulmonary Medicine, [facility] 132 [facility] [place] [address] Eloy Pond MD [address] [facility] [place] [address] 10/15/2024 8:40 AM EDT Office Visit Rheumatology [address] [place] [phone] Samy Russo MD [facility] [place], [place] [address] Health Maintenance Due Date Last Done Comments [...] this encounter Medical Devices Implanted Type Area Small Products Assembler Device Identifier Shelf Expiration Date Model / Serial / Lot Port Implant W8f Poly Cath - [id number] Implanted:Qty : 1 on 12/31/2023 by Sin Burroughs MD at OR [facility] Right: Chest CR BARD : PERIPHERAL VASCULAR [id number] 10/09/2024 [id number] / / [id number] documented as of this encounter Visit Diagnoses [...] mL documented in this encounter Care Teams Capacity Analyst Relationship Specialty Start Date End Date Edel Clay MD [address] [place] [address] [place] [address] PCP - General Family Medicine 03/03/17 documented as of this encounter
--- OUTSIDE RECORDS SUMMARY | 2024-06-12 02:29 | External Medical Summary | Summary of Care ---
Author Name Unknown Organization [facility] Address [address] [place] [address] Phone [phone] Care Team Providers Care Carriage Operator Name Role Phone Edel Clay MD [...] Procedures PENDING TECENTRIQ & Monica Anderson MD [address] [place] [address] [place] [address] Anc Hem/Onc Scenery [address] [address] Referral ID Status Reason Start Date Expiration Date V isits Requested Visits Authorized [id number] Authorized 12/17/2023 06/13/[phone] Encounter Details Date Type Department Care Team (Latest Contact Info) Description 02/24/2024 1:00 PM EDT Hem/Onc Treatment Hematology/Oncolog y Treatment, [address] [address] [place], Chair 11 Hem Onc [address] [address] Encounter for antineoplastic chemotherapy*; [...] with positive rheumatoid factor ([facility]) INJECT 125 MG ( ONE SYRINGE ) [...] with positive rheumatoid factor ([facility]) TAKE 1 TABLET BY MOUTH EVERY DAY [...] Thyroiditis 07/18/2008 06/01/2019 Overview: thyroglobulin antibody >3000 [id number]-[facility] 08/19/200608/10 Overview: Renamed Per Clinical Trials Billing Project. Pt is a participant in the CORRONA (Consortium of Rheumatology Researchers of [place]) national data collection study. For further information please call Dr Temo Castaneda or Kim Ríos, RN, CCRC at [phone] [facility] RESEARCH OTHER*[id number] 08/19/2006 11/06/2009 Overview: Renamed Per Clinical Trials Billing Project. Pt is a participant in the CORRONA (Consortium of Rheumatology Researchers of [place]) national data collection study. For further information please call Dr Temo Castaneda or Kim Ríos RN, CCRC at [phone] Arthritis, rheumatoid 07/01/20062016 Abnormal blood chemistry 05/02/2006 [...] 1:30 PM EDT Hem/Onc Treatment Hematology/[address]cology [address], [address] [phone] [place], Chair 8 Hem Onc [facility] [address] [facility] [place] [address] 02/26/2024 4:30 PM EDT Immunization/Injecti on Hematology/Oncology Treatment, [address] [phone] [place], Chair 4 Hem Onc [facility] [address] [facility] [place] [address] 03/15/2024 7:50 AM EST Laboratory Laboratory [facility] [address] [place] [phone] [place], Lab Scenery [address] [facility] [place] [address] 03/15/2024 8:30 AM EST Office Visit Hematology/Oncology [facility] [place] [address] [facility] [place] [phone] Monica Ward MD [address] [place] [address] [place] [address] 03/15/2024 9:00 AM EST Hem/Onc Treatment Hematology/Oncology Treatment, [address] [phone] [place], Chair 5 Hem Onc Scenery [address] [facility] [place] [address] 03/16/2024 8:45 AM EST Hem/Onc Treatment Hematology/Oncology Treatment, [place] [address] [place] [place] [phone] [place], Chair 2 Hem Onc Scenery 200 [facility] [place] [address] 03/17/2024 10:15 AM EST Hem/Onc Treatment Hematology/Oncology Treatment, [place] 200 [facility], [place] [address] [place], Chair 5 Hem Onc Scenery 200 [facility] [place] [address] 07/14/2024 3:00 PM EST Office Visit Pulmonary Medicine, [facility] [address] [facility] [place] [address] Eloy Pond MD [address] [facility] [place] [address] 10/15/2024 8:40 AM EDT Office Visit Rheumatology [address] [place] [address] Samy Russo MD [address] [facility] [place] [address] Health Maintenance Due Date Last Done Comments [...] this encounter Medical Devices Implanted Type Area Backrest Assembler Device Identifier Shelf Expiration Date Model / Serial / Lot Port Implant W8f Poly Cath - [id number] Implanted:Qty : 1 on 12/31/2023 by Sin Burroughs MD at OR [facility] Right: Chest CR BARD : PERIPHERAL VASCULAR [id number] 10/09/2024 [id number] / / [id number] documented as of this encounter Visit Diagnoses [...] mg documented in this encounter Care Teams Carriage Operator Relationship Specialty Start Date End Date Edel Clay MD [address] [place] [address] [place] [phone] PCP - General Family Medicine 03/03/17 documented as of this encounter
--- OUTSIDE RECORDS SUMMARY | 2024-06-12 02:30 | External Medical Summary | Summary of Care ---
Author Name Unknown Organization [facility] Address [address] [place] [address] Phone [phone] Care Team Providers Care Director Of In Service Education Name Role Phone Edel Clay MD Primary Care Provide r Reason for Visit * Reason Comments Chemotherapy C3/D2 - Etoposide * Episode Based Medications (Routine) - Authorized Specialty Diagnoses / Procedures Referred By Contac t Referred To Contact Diagnoses Encounter for antineoplastic chemotherapy Cancer, metastatic to bone (HCC) Metastatic adenocarcinoma to liver (HCC) Small cell lung cancer, right (HCC) Procedures PENDING TECENTRIQ & FULPHILA Monica Ward MD [address] [place] [address] [place] [address] Anc Hem/Onc Scenery [place] [address] [place] [phone] Referral ID Status Reason Start Date Expiration Date V isits Requested Visits Authorized [id number] Authorized 12/17/2023 06/13/[phone] Encounter Details Date Type Department Care Team (Latest Contact Info) Description 02/03/2024 1:00 PM EDT Hem/Onc Treatment Hematology/Oncolog y Treatment, [address] [address] [place], Chair 9 Hem Onc Scenery [address] [place] [address] Encounter for antineoplastic chemotherapy*; Cancer, metastatic [...] as of this encounter (statuses as of 02/22/2024) Medications Medication Sig Dispensed Refills Start Date [...] as of this encounter (statuses as of 02/22/2024) Active Problems Problem Noted Date Diagnosed Date [...] as of this encounter (statuses as of 02/22/2024) Resolved Problems Problem Noted Date Diagnosed Date [...] Thyroiditis 07/18/2008 06/01/2019 Overview: thyroglobulin antibody >3000 [id number]-[facility] 08/19/200608/10 Overview: Renamed Per Clinical Trials Billing Project. Pt is a participant in the CORRO (Consortium of Rheumatology Researchers of [place]) national data collection study. For further information please call Dr Temo Castaneda or Kim Ríos, RN, CCRC at [phone] [facility] RESEARCH OTHER*[id number] 08/19/2006 11/06/2009 Overview: Renamed Per Clinical Trials Billing Project. Pt is a participant in the [employer]RON[employer] (Consortium of Rheumatology Researchers of [place]) national data collection study. For further information please call Dr Temo Castaneda or Kim Ríos, RN, CCRC at [phone] Arthritis, rheumatoid 07/01/20062016 Abnormal blood chemistry 05/02/2006 Overview: positive rheumatoid factor. Metabolic syndrome 04/29/2006 0 Overview: insulin level 16 Mixed dyslipidemia 02/06/2006 9 Overview: Per Lipid Taxonomy. chol 192, hdl 26, trig 403 Allergic rhinitis due to pollen 01/30/2006 03/03/2017 Obesity, BMI not known 08/07 Overview: Per Obesity Taxonomy Denture irritation 0 documented as of this encounter (statuses as of 02/22/2024) Immunizations Name Administration Dates Next Due COVID-19 [...] as of this encounter Nursing Notes * Madeline Crocker RN - 02/03/2024 4:29 PM EDT Chair 7. Port accessed, no issues. Patient is feeling well today upon assessment, no complaints. Chemotherapy/Immunotherapy agents: ETOPOSIDE Consent for chemotherapy drug treatment complete, dated, and signed? yes, date - 12/12/2023 Treatment lab parameters met? Yes Has treatment weight changed > than 10%? No Treatment preauthorized? Yes VITALS There were no vitals filed for this visit. Urine protein: N/A Patient education completed for [...] NEURO: denies symptoms CV/RESP: denies symptoms GI/: OTHER: ongoing gastric reflux which she is taking TUMS for - patient says this helps her symptoms OTHER: denies any additional symptoms PAIN: 0 none at this time Safety and Risk for Injury Patient will remain free from injury. Ensure appropriate safety devices are available. Provide and maintain safe environment. documented in this encounter Plan of Treatment Upcoming Encounters Date Type Department Care Team (Late st Contact Info) Description 02/23/2024 7:30 AM EDT Laboratory Laboratory [facility] 200 [facility] [place] [phone] [facility] [address] [place] [address] 02/23/2024 8:00 AM EDT Office Visit Hematology/Oncology [facility] [address] [place] [phone] Monica Ward MD [address] [place] [address] [place] [phone] 02/23/2024 8:30 AM EDT Hem/Onc Treatment Hematology/Oncology Treatment, [place] [address] [place] [phone] [place], Chair 4 Hem Onc [address] [place] [address] 02/24/2024 1:00 PM EDT Hem/Onc Treatment Hematology/Oncology Treatment, [place] 200 [place] [address] [place], Chair 11 Hem Onc Scenery 200 [facility] [place] [address] 02/25/2024 1:30 PM EDT Hem/Onc Treatment Hematology/Oncology Treatment, [place] 200 [facility], [place] [phone] [place], Chair 8 Hem Onc Scenery 200 [facility] [place], [place] [address] 07/14/2024 3:00 PM EST Office Visit Pulmonary Medicine, [facility] 132 [facility] [place] [address] Eloy Pond MD [address] [facility] [address] 10/15/2024 8:40 AM EDT Office Visit Rheumatology [address] [place] [phone] Samy Russo MD [address] [facility] [place] [address] Health Maintenance Due Date Last Done Comments [...] this encounter Medical Devices Implanted Type Area Wrapper Leaf Inspector Device Identifier Shelf Expiration Date Model / Serial / Lot Port Implant W8f Poly Cath - [id number] Implanted:Qty : 1 on 12/31/2023 by Sin Burroughs MD at OR [facility] Right: Chest CR BARD : PERIPHERAL VASCULAR [id number] 10/09/2024 [id number] / / [id number] documented as of this encounter Visit Diagnoses [...] weight), IV Piggyback, ONCE, 1 dose, On Fri02/03/24 at 1515, Administer over 60 Minutes, Recommended concentration is less than or equal to 0.4 mg/mL. If concentration is greater than 0.4 mg/mL recommend to administer through 0.22 micron low protein binding filter. Start Infusion 02/03/2024 2:01 PM EDT 190 mg 519.5 mL/hr hEParin 100 UNIT/ML Lock Flush inj 500 Units 500 Units (5 mL), IV Lock, PRN Other, IV Flush, Starting on Fri02/03/24 at 1338, Until Fri02/03/24 at 2032, For 24 hours, Do not flush if lock, PICC, or central line not in place; IV infusing or unable to flush. Given 02/03/2024 3:08 PM EDT 500 Units NSS infusion Intravenous, at 50 mL/hr, PRN, Starting on Fri02/03/24 at 1445, Until Fri02/03/24 at 203, Maintenance line Start Infusion 02/03/2024 1:58 PM EDT 50 mL/hr ondansetron (Zofran) tab 8 mg 8 mg, Oral, ONCE, On Fri02/03/24 at 1445, For 1 dose, Give 30 minutes prior to chemotherapy. Given 02/03/2024 1:42 PM EDT 8 mg sodium chloride 0.9 % flush central line 10 mL 10 mL, IV Push, PRN Other, IV Flush, Starting on Fri02/03/24 at 1338, Until Fri02/03/24 at 2032, For 24 hours, Do not flush if lock, PICC, or central line not in place; IV infusing or unable to flush. Given 02/03/2024 3:07 PM EDT 10 mL documented in this encounter Care Teams Director Of In Service Education Relationship Specialty Start Date End Date Edel Clay MD [address] [place] [address] [place] [phone] PCP - General Family Medicine 03/03/17 documented as of this encounter
--- OUTSIDE RECORDS SUMMARY | 2024-06-12 02:30 | External Medical Summary ---
Author Name Unknown Address Unknown Organization K09:[facility] [place] [address] Laboratory Report Ordering Provider Test Date Status AKILAH ROMERO 02/23/2024 07:41:58 Final Observation Date Value Abnormality Reference (Units ) Status SYNC LEUKOCYTES IN BLOOD BY AUTOMATED COUNT 02/23/2024 07:41:58 7.64 4.00-10.80 (K/uL) Final Segs 02/23/2024 07:41:58 44.6 40.0-75.0 (%) Final Lymphs % 02/23/2024 07:41:58 39.4 18.0-42.0 (%) Final Monos 02/23/2024 07:41:58 13.9 Above high normal 1.0-11.0 (%) Final Eosinophils 02/23/2024 07:41:58 0.9 0.0-6.0 (%) Final Basos 02/23/2024 07:41:58 1.2 0.0-2.0 (%) Final Absolute Segs 02/23/2024 07:41:58 3.41 1.80-7.70 (K/uL) Final Lymphs, absolute 02/23/2024 07:41:58 3.01 1.00-4.80 (K/ul) Final Monos, Abs 02/23/2024 07:41:58 1.06 0.00-1.10 (K/uL) Final Eos, Abs 02/23/2024 07:41:58 0.07 0.00-0.70 (K/uL) Final Basos, Abs 02/23/2024 07:41:58 0.09 0.00-0.20 (K/uL) Final Performing Location [facility] [place] [address]
--- OUTSIDE RECORDS SUMMARY | 2024-06-12 02:30 | External Medical Summary | Summary of Care ---
Author Name Unknown Organization [facility] Address [address] [place] [address] Phone [phone] Care Team Providers Care Attendant Child Activity Name Role Phone Edel Clay MD Primary Care Provide r Reason for Visit * Reason Comments Chemotherapy C3/D3 - Etoposide * Episode Based Medications (Routine) - Authorized Specialty Diagnoses / Procedures Referred By Contac t Referred To Contact Diagnoses Encounter for antineoplastic chemotherapy Cancer, metastatic to bone (HCC) Metastatic adenocarcinoma to liver (HCC) Small cell lung cancer, right (HCC) Procedures PENDING TECENTRIQ & FULPHILA Monica Ward MD [address] [place] [address] [place] [phone] Anc Hem/Onc [facility] [address] [phone] Referral ID Status Reason Start Date Expiration Date V isits Requested Visits Authorized [id number] Authorized 12/17/2023 06/13/2024 999 999 Encounter Details Date Type Department Care Team (Latest Contact Info) Description 02/04/2024 1:30 PM EDT Hem/Onc Treatment Hematology/Oncolog y Treatment, [address] [phone] Encounter for antineoplastic chemotherapy*; Cancer, metastatic to [...] Thyroiditis 07/18/2008 06/01/2019 Overview: thyroglobulin antibody >3000 [id number] 08/19/200608/10 Overview: Renamed Per Clinical Trials Billing Project. Pt is a participant in the CORRO (Consortium of Rheumatology Researchers of [place]) national data collection study. For further information please call Dr Temo Castaneda or Kim Ríos, RN, CCRC at [phone] [facility] RESEARCH OTHER*[id number] 08/19/2006 11/06/2009 Overview: Renamed Per Clinical Trials Billing Project. Pt is a participant in the CORRONA (Consortium of Rheumatology Researchers of [place]) national data collection study. For further information please call Dr Temo Castaneda or Kim Ríos, RN, CCRC at [phone] Arthritis, rheumatoid 07/01/20062016 Abnormal blood chemistry 05/02/2006 [...] Sign Reading Time Taken Comments Blood Pressure 149/80 02/04/2024 1:50 PM EDT Pulse 78 02/04/2024 1:50 PM EDT Temperature 36.9 C (98.4 F) 02/04/2024 1:50 PM ED T Respiratory Rate 18 02/04/2024 1:50 PM EDT Oxygen Saturation 96% 02/04/2024 1:50 PM EDT Inhaled Oxygen Concentration - - Weight - - Height - - Body Mass Index - - documented in this encounter Nursing Notes * Madeline Crocker RN - 02/04/2024 3:47 PM EDT Goals: Patient will remain free [...] further needs. * Madeline Crocker RN - 02/04/2024 2:32 PM EDT Chair 12. Port accessed. Patient is feeling okay overall today, just some fatigue today. Day 3/3 Etoposide today. Patient to also receive her Q6 weekly Zometa today as well, calcium was 9.5 on lab from day 1 of txcycle. Chemotherapy/Immunotherapy agents: ETOPOSIDE Consent for chemotherapy drug treatment complete, dated, and signed? yes, date - 12/12/2023 Treatment lab parameters met? Yes Has treatment weight changed > than 10%? No Treatment preauthorized? Yes VITALS Filed Vitals: 02/04/24 1350 BP: 149/80 Pulse: 78 Resp: 18 Temp: 36.9 C (98.4 F) TempSrc: Tympanic SpO2: 96% Urine protein: N/A Patient education completed for [...] using the heat function. PRE-TREATMENT ASSESSMENT: NEURO: fatigue:mild, day 3/3 etoposide today, typical side effect patient has on treatment weeks CV/RESP: shortness of breath: baseline but slightly improved since starting tx, with exertion GI/: denies symptoms OTHER: denies any additional symptoms PAIN: 0 Safety and Risk for Injury Patient will remain free from injury. Ensure appropriate safety devices are available. Provide and maintain safe environment. documented in this encounter Plan of Treatment Upcoming Encounters Date Type Department Care Team (Late st Contact Info) Description 02/23/2024 7:30 AM EDT Laboratory Laboratory [facility] [place] 200 [facility] [place] [phone] [place], Lab [facility] [address] [facility] [place] [address] 02/23/2024 8:00 AM EDT Office Visit Hematology/Oncology [facility] [address] [place] [phone] Monica Ward MD [address] [place], [place] [address] [place] [phone] 02/23/2024 8:30 AM EDT Hem/Onc Treatment Hematology/Oncology [address], [address] [phone] [place], Chair 4 Hem Onc [facility] [address] [place] [address] [place] [address] 02/24/2024 1:00 PM EDT Hem/Onc Treatment Hematology/Oncology Treatment, [address] [phone] [place], Chair 11 Hem Onc Scenery 200 [facility] [place] [address] 02/25/2024 1:30 PM EDT Hem/Onc Treatment Hematology/Oncology Treatment, [address] [address] [place], Chair 8 Hem Onc Scenery 200 [facility] [place] [address] 07/14/2024 3:00 PM EST Office Visit Pulmonary Medicine, [facility] [address] [facility] [place] [address] Eloy Pond MD [address] [facility] [place] [address] 10/15/2024 8:40 AM EDT Office Visit Rheumatology [address] [place] [address] Samy Russo MD [address] [facility] [place], [place] [address] Health Maintenance Due Date Last Done Comments [...] this encounter Medical Devices Implanted Type Area Delphi Developer Device Identifier Shelf Expiration Date Model / Serial / Lot Port Implant W8f Poly Cath - [id number] Implanted:Qty : 1 on 12/31/2023 by Sin Burroughs MD at OR [facility] Right: Chest CR BARD : PERIPHERAL VASCULAR [id number] 10/09/2024 [id number] / / [id number] documented as of this encounter Visit Diagnoses [...] weight), IV Piggyback, ONCE, 1 dose, On Fri02/04/24 at 1515, Administer over 60 Minutes, Recommended concentration is less than or equal to 0.4 mg/mL. If concentration is greater than 0.4 mg/mL recommend to administer through 0.22 micron low protein binding filter. Start Infusion 02/04/2024 2:04 PM EDT 190 mg 519.5 mL/hr hEParin 100 UNIT/ML Lock Flush inj 500 Units 500 Units (5 mL), IV Lock, PRN Other, IV Flush, Starting on Fri02/04/24 at 1340, Until Fri02/04/24 at 1949, For 24 hours, Do not flush if lock, PICC, or central line not in place; IV infusing or unable to flush. Given 02/04/2024 3:41 PM EDT 500 Units NSS infusion Intravenous, at 50 mL/hr, PRN, Starting on Fri02/04/24 at 1445, Until Fri02/04/24 at 1949, Maintenance line Start Infusion 02/04/2024 2:02 PM EDT 50 mL/hr ondansetron (Zofran) tab 8 mg 8 mg, Oral, ONCE, On Fri02/04/24 at 1445, For 1 dose, Give 30 minutes prior to chemotherapy. Given 02/04/2024 1:48 PM EDT 8 mg sodium chloride 0.9 % flush central line 10 mL 10 mL, IV Push, PRN Other, IV Flush, Starting on Fri02/04/24 at 1340, Until Fri02/04/24 at 1949, For 24 hours, Do not flush if lock, PICC, or central line not in place; IV infusing or unable to flush. Given 02/04/2024 3:41 PM EDT 10 mL Zoledronic Acid (Zometa) 4 mg in 100 mL PREMIX ivpb 4 mg, IV Piggyback, ONCE, 1 dose, On Fri02/04/24 at 1615 Start Infusion 02/04/2024 3:23 PM EDT 4 mg 400 mL/hr documented in this encounter Care Teams Attendant Child Activity Relationship Specialty Start Date End Date Edel Clay MD [address] [place] [address] [place] [address] PCP - General Family Medicine 03/03/17 documented as of this encounter
--- OUTSIDE RECORDS SUMMARY | 2024-06-12 02:30 | External Medical Summary ---
Author Name Unknown Address Unknown Organization K09:[facility] [place] [address] Laboratory Report Ordering Provider Test Date Status AKILAH ROMERO 02/23/2024 07:41:58 Final Observation Date Value Abnormality Reference (Units ) Status WBC, Total 02/23/2024 07:41:58 7.64 4.00-10.8 0 (K/uL) Final RBC 02/23/2024 07:41:58 3.57 3.85-5.15 (M/uL) Final Hemoglobin 02/23/2024 07:41:58 12.0 12.0-15.3 (g/dL) Final HCT 02/23/2024 07:41:58 37.2 36.0-45.2 (%) Final MCV 02/23/2024 07:41:58 104.2 81.5-97.5 (fL) Final MCH 02/23/2024 07:41:58 33.6 27.0-34.0 (pg) Final MCHC 02/23/2024 07:41:58 32.3 32.0-36.0 (g/dL) Final RDW 02/23/2024 07:41:58 17.3 11.5-15.5 (%) Final Platelets 02/23/2024 07:41:58 363 140-400 (K /uL) Final MPV 02/23/2024 07:41:58 8.8 6.6-11.1 ( fL) Final Performing Location [facility] [address]
--- OUTSIDE RECORDS SUMMARY | 2024-06-12 02:30 | External Medical Summary | Summary of Care ---
Author Name Unknown Organization [facility] Address [address] [place] [address] Phone [phone] Care Team Providers Care Optical Instrument Specialist Name Role Phone Edel Clay MD [...] PENDING TECENTRIQ & FULPHILA Monica Ward MD [address] [place] [address] [place] [address] Anc Hem[facility]Onc [facility] [address] [address] Referral ID Status Reason Start Date Expiration Date V isits Requested Visits Authorized [id number] Authorized 12/17/2023 06/13/2024 999 999 Encounter Details Date Type Department Care Team (Latest Contact Info) Description 02/04/2024 1:30 PM EDT Hem/Onc Treatment Hematology/Oncolog y Treatment, [address] [address] Encounter for antineoplastic chemotherapy*; Cancer, [...] Thyroiditis 07/18/2008 06/01/2019 Overview: thyroglobulin antibody >3000 [id number] 08/19/200608/10 Overview: Renamed Per Clinical Trials Billing Project. Pt is a participant in the CORRO (Consortium of Rheumatology Researchers of [place]) national data collection study. For further information please call Dr Temo Castaneda or Kim Ríos, RN, CCRC at [phone] [facility] RESEARCH OTHER*[id number] 08/19/2006 11/06/2009 Overview: Renamed Per Clinical Trials Billing Project. Pt is a participant in the [employer] (Consortium of Rheumatology Researchers of [place]) national data collection study. For further information please call Dr Temo Castaneda or Kim Ríos, RN, CCRC at [phone] Arthritis, rheumatoid 07/01/20062016 Abnormal blood chemistry 05/02/2006 [...] Description 02/23/2024 7:30 AM EDT Laboratory Laboratory [facility] [place] 200 [facility] [place] [phone] [place], Lab [facility] 200 [facility] [place] [address] 02/23/2024 8:00 AM EDT Office Visit Hematology/On[facility] [address] [place] [phone] Monica Ward MD [address] [place], [place] [address] [place] [phone] 02/23/2024 8:30 AM EDT Hem/Onc Treatment Hematology/Oncology Treatment, [address] [address] [place], Chair 4 Hem Onc [facility] [address] [place] [address] [place] [address] 02/24/2024 1:00 PM EDT Hem/Onc Treatment Hematology/Oncology Treatment, [address] [phone] [place], Chair 11 Hem Onc Scenery 200 [facility] [place] [address] 02/25/2024 1:30 PM EDT Hem/Onc Treatment Hematology/Oncology Treatment, [address] [address] [place], Chair 8 Hem Onc Scenery 200 [facility] [place] [address] 07/14/2024 3:00 PM EST Office Visit Pulmonary Medicine, [facility] [address] [facility] [place] [address] Eloy Pond MD [address] [facility] [place] [address] 10/15/2024 8:40 AM EDT Office Visit Rheumatology [address] [place] [address] Samy Russo MD [address] [facility] [place], [place] [address] Health Maintenance Due Date Last Done Comments [...] this encounter Medical Devices Implanted Type Area Partridge Farmer Device Identifier Shelf Expiration Date Model / Serial / Lot Port Implant W8f Poly Cath - [id number] Implanted:Qty : 1 on 12/31/2023 by Sin Burroughs MD at OR [facility] Right: Chest CR BARD : PERIPHERAL VASCULAR [id number] 10/09/2024 [id number] / / [id number] documented as of this encounter Visit Diagnoses [...] mL/hr documented in this encounter Care Teams Optical Instrument Specialist Relationship Specialty Start Date End Date Edel Clay MD [address] [place] [address] [place] [address] PCP - General Family Medicine 03/03/17 documented as of this encounter
--- OUTSIDE RECORDS SUMMARY | 2024-06-12 02:30 | External Medical Summary ---
Author Name Unknown Address Unknown Organization K01:[facility] - [address] [place] [address] Laboratory Report Ordering Provider Test Date Status HEATHERSAGARMADIEMARTIN 02/23/2024 07:41:58 Final Observation Date Value Abnormality Reference (Units ) Status T4, Free 02/23/2024 07:41:58 1.2 0.9-1.7 (n g/dL) Final Performing Location [facility] - [address] [place] [address]
--- OUTSIDE RECORDS SUMMARY | 2024-06-12 02:30 | External Medical Summary ---
Author Name Unknown Address Unknown Organization K09:[facility] [place] 56-28 - [address] [place] [address] Laboratory Report Ordering Provider Test Date Status AKILAH ROMERO 02/23/2024 07:41:58 Final Observation Date Value Abnormality Reference (Units ) Status BUN 02/23/2024 07:41:58 9 6-20 (mg/dL) Final Creatinine 02/23/2024 07:41:58 0.8 0.5-1.0 (mg/dL) Final Glomerular filtration rate/1.73 sq M.predicted [Volume Rate/Area] in Serum, Plasma or Blood by Creatinine-based formula (CKD-EPI) 02/23/2024 07:41:58 85 >=60 (mL/min) Final eGFR is calculated based on the CKD-EPI 2020 equation. Sodium 02/23/2024 07:41:58 142 135-146 (m mol/L) Final Potassium 02/23/2024 07:41:58 4.1 3.5-5.1 (m mol/L) Final Cl 02/23/2024 07:41:58 107 98-107 (mm ol/L) Final CO2 02/23/2024 07:41:58 22 22-32 (mmo l/L) Final Anion gap 02/23/2024 07:41:58 13 7-15 (mmol /L) Final Glucose 02/23/2024 07:41:58 133 Above high normal 70 -120 (mg/dL) Final Albumin 02/23/2024 07:41:58 4.1 3.8-5.0 (g /dL) Final AST (Aspartate aminotransferase) 02/23/2024 07:41:58 25 10-35 (U/L) Fin al Alk Phos 02/23/2024 07:41:58 125 35-130 (U/ L) Final Bilirubin, Total 02/23/2024 07:41:58 0.2 <=1 .2 (mg/dL) Final Calcium 02/23/2024 07:41:58 9.7 8.4-10.2 ( mg/dL) Final Protein 02/23/2024 07:41:58 7.0 6.0-8.3 (g /dL) Final ALT (Alanine aminotransferase) 02/23/2024 07:41:58 13 10-35 (U/L) Neo mann Performing Location [facility] [place] [address] [place] [address]
--- OUTSIDE RECORDS SUMMARY | 2024-06-12 02:30 | External Medical Summary | Summary of Care ---
Author Name Unknown Organization [facility] Address [address] [place] [address] Phone [phone] Care Team Providers Care Tube Backer Name Role Phone Edel Clay MD Primary Care Provide r Reason for Visit * Reason Comments Outpatient Testing Encounter Details Date Type Department Care Team (Late st Contact Info) Description 02/23/2024 7:30 AM EDT Laboratory Laboratory [facility] [place] [address] [place] [phone] [place], Lab Scenery [address] [place] [address] Metastatic adenocarcinoma to liver (HCC) Allergies Active [...] Thyroiditis 07/18/2008 06/01/2019 Overview: thyroglobulin antibody >3000 [id number] 08/19/200608/10 Overview: Renamed Per Clinical Trials Billing Project. Pt is a participant in the [facility] (Consortium of Rheumatology Researchers of [place]) national data collection study. For further information please call Dr Temo Castaneda or Kim Ríos, RN, CCRC at [phone] [facility] RESEARCH OTHER*[id number] 08/19/2006 11/06/2009 Overview: Renamed Per Clinical Trials Billing Project. Pt is a participant in the [facility] (Consortium of Rheumatology Researchers of [facility]) national data collection study. For further information please call Dr Temo Castaneda or Kim Ríos, RN, CCRC at [phone] Arthritis, rheumatoid 07/01/20062016 Abnormal blood chemistry 05/02/2006 [...] 02/23/2024 8:00 AM EDT Office Visit Hematology/Oncology [facility] [place] [address] [place] [phone] Monica Ward MD [address] [place] [address] [place] [phone] Arrived 02/23/2024 8:30 AM EDT Hem/Onc Treatment Hematology/Oncology Treatment, [place] [address] [facility] [place] [address] [place], Chair 4 Hem Onc Scenery [address] [place] [address] Arrived 02/24/2024 1:00 PM EDT Hem/Onc Treatment Hematology/Oncology Treatment, [place] [address] [facility] [place] [address] [place], Chair 11 Hem Onc Scenery [address] [place] [address] 02/25/2024 1:30 PM EDT Hem/Onc Treatment Hematology/Oncology Treatment, [place] [facility] [address] [place], Chair 8 Hem Onc Scenery 200 [facility] [place] [address] 07/14/2024 3:00 PM EST Office Visit Pulmonary Medicine, [facility] 132 [facility] [place] [address] Eloy Pond MD [address] [facility] [phone] 10/15/2024 8:40 AM EDT Office Visit Rheumatology [address] [place] [phone] Samy Russo MD [address] [facility] [address] Pending Results Name Type Priority Associated Diagnoses Date /Time TSH WITH FREE T4 IF INDICATED Lab STAT Metastatic adenocarcinoma to liver (HCC) 02/23/2024 7:41 AM EDT COMPREHENSIVE METABOLIC PANEL Lab STAT Metastatic adenocarcinoma to liver (HCC) 02/23/2024 7:41 AM EDT Health Maintenance Due Date Last Done Comments [...] this encounter Medical Devices Implanted Type Area Drawing Tender Device Identifier Shelf Expiration Date Model / Serial / Lot Port Implant W8f Poly Cath - [id number] Implanted:Qty : 1 on 12/31/2023 by Sin Burroughs MD at [facility] Right: Chest CR BARD : PERIPHERAL VASCULAR [id number] 10/09/2024 [id number] / / [id number] documented as of this encounter Procedures Procedure Name Priority Date/Time Associated Diagnosis Comments DIFFERENTIAL, AUTOMATED STAT 02/23/2024 7:41 AM EDT Metastatic adenocarcinoma to liver (HCC) CBC STAT 02/23/2024 7:41 AM EDT Metastatic adenocarcinoma to liver (HCC) CBC STAT 02/23/2024 7:41 AM EDT Metastatic adenocarcinoma to liver (HCC) documented in this encounter Results * (ABNORMAL) DIFFERENTIAL, AUTOMATED (02/23/2024 7:41 AM EDT) WBC 7.64 4.00 - 10.80 K/uL 02/23/2024 7:46 AM EDT [facility] [place] 56-02 Neutrophils % 44.6 40.0 - 75.0 % 02/23/2024 7:46 AM EDT [facility] [place] 56-02 Lymphocytes % 39.4 18.0 - 42.0 % 02/23/2024 7:46 AM EDT [facility] 56- Monocytes % 13.9(H) 1.0 - 11.0 % 02/23/2024 7:46 AM EDT [facility] 56- Eosinophils % 0.9 0.0 - 6.0 % 02/23/2024 7:46 AM EDT [facility] 56- Basophils % 1.2 0.0 - 2.0 % 02/23/2024 7:46 AM EDT [facility] 56- Absolute Neutrophils 3.41 1.80 - 7.70 K/uL 02/23/2024 7:46 AM EDT [facility] 56- Absolute Lymphocytes 3.01 1.00 - 4.80 K/ul 02/23/2024 7:46 AM EDT [facility] 56- Absolute Monocytes 1.06 0.00 - 1.10 K/uL 02/23/2024 7:46 AM EDT [facility] 56- Absolute Eosinophils 0.07 0.00 - 0.70 K/uL 02/23/2024 7:46 AM EDT [facility] 56 Absolute Basophils 0.09 0.00 - 0.20 K/uL 02/23/2024 7:46 AM EDT [facility] 56 Blood Venous blood specimen / Unknown Venipuncture / Unknown 02/23/2024 7:41 AM EDT 02/23/2024 7:41 AM EDT Monica Ward MD LAB BLOOD ORDERABLES [facility] [address] [place], [place] [address] * CBC (02/23/2024 7:41 AM EDT) WBC 7.64 4.00 - 10.80 K/uL 02/23/2024 7:46 AM EDT [facility] 56- RBC 3.57 3.85 - 5.15 M/uL 02/23/2024 7:46 AM EDT [facility] 56- HGB 12.0 12.0 - 15.3 g/dL 02/23/2024 7:46 AM EDT [facility] 56 HCT 37.2 36.0 - 45.2 % 02/23/2024 7:46 AM EDT [facility] 56 MCV 104.2 81.5 - 97.5 fL 02/23/2024 7:46 AM EDT [facility] 56 MCH 33.6 27.0 - 34.0 pg 02/23/2024 7:46 AM EDT [facility] 56 MCHC 32.3 32.0 - 36.0 g/dL 02/23/2024 7:46 AM EDT [facility] 56 RDW 17.3 11.5 - 15.5 % 02/23/2024 7:46 AM EDT [facility] 56 PLT 363 140 - 400 K/uL 02/23/2024 7:46 AM EDT [facility] 56 MPV 8.8 6.6 - 11.1 fL 02/23/2024 7:46 AM EDT [facility] 56 Blood Venous blood specimen / Unknown Venipuncture / Unknown 02/23/2024 7:41 AM EDT 02/23/2024 7:41 AM EDT Monica Ward MD LAB BLOOD ORDERABLES [facility] [address] [place] [address] documented in this encounter Visit Diagnoses Diagnosis Metastatic adenocarcinoma to liver (HCC) Secondary malignant neoplasm of liver documented in this encounter Care Teams Tube Backer Relationship Specialty Start Date End Date Edel Clay MD [address] [place] [address] [place] [address] PCP - General Family Medicine 03/03/17 documented as of this encounter
--- OUTSIDE RECORDS SUMMARY | 2024-06-12 02:30 | External Medical Summary | Summary of Care ---
Author Name Unknown Organization [facility] Address [address] [place] [address] Phone [phone] Care Team Providers Care Fluxer Name Role Phone Edel Clay MD Primary Care Provide r Reason for Visit * Reason Comments Chemotherapy C3 D1-Tecentriq, Car boplatin, Etoposide * Episode Based Medications (Routine) - Authorized Specialty Diagnoses / Procedures Referred By Contac t Referred To Contact Diagnoses Encounter for antineoplastic chemotherapy Cancer, metastatic to bone (HCC) Metastatic adenocarcinoma to liver (HCC) Small cell lung cancer, right (HCC) Procedures PENDING TECENTRIQ & BATSHEVA Ward, Monica Carmona MD [address] [place] [address] [place] [address] Anc Hem/Onc [address] [address] Referral ID Status Reason Start Date Expiration Date V isits Requested Visits Authorized [id number] Authorized 12/17/2023 06/13/2024 999 999 Encounter Details Date Type Department Care Team (Latest Contact Info) Description 02/02/2024 1:30 PM EDT Hem/Onc Treatment Hematology/Oncolog y Treatment, [address] [address] [place] Chair 7 Hem Onc [address] [place] [address] Encounter for antineoplastic chemotherapy*; Cancer, metastatic to bone (HCC); Metastatic adenocarcinoma to liver (HCC); Small cell lung cancer, right (HCC); Burning with urination Allergies Active Allergy Reactions Criticality Noted Date [...] multiple sites with positive rheumatoid factor ([facility]) INJECT 125 MG ( ONE SYRINGE [...] Thyroiditis 07/18/2008 06/01/2019 Overview: thyroglobulin antibody >3000 [id number][facility] 08/19/200608/10 Overview: Renamed Per Clinical Trials Billing Project. Pt is a participant in the CORRO (Consortium of Rheumatology Researchers of [facility]) national data collection study. For further information please call Dr Temo Castaneda or Kim Ríos, RN, CCRC at [phone] [facility] RESEARCH OTHER*[id number] 08/19/2006 11/06/2009 Overview: Renamed Per Clinical Trials Billing Project. Pt is a participant in the [employer] (Consortium of Rheumatology Researchers of [place]) national data collection study. For further information please call Dr Temo Castaneda or Kim Ríos, RN, CCRC at [phone] Arthritis, rheumatoid 07/01/20062016 Abnormal blood chemistry 05/02/2006 [...] Nursing Notes * Domitila Nettles RN - 02/02/2024 5:35 PM EDT Pt completed treatment without issues. [...] treatment today. Discharged in stable condition. * Francine Lewis RN - 02/02/2024 2:41 PM EDT Patient arrived after appointment with Dr. Ward for treatment. Port accessed with brisk blood return. Chemotherapy/Immunotherapy agents: CARBOPLATIN, Tecentriq, Etoposide Consent for chemotherapy drug treatment complete, dated, [...] Description 02/23/2024 7:30 AM EDT Laboratory Laboratory [facility] Mortensen [address] [place] [address] [phone] Diana Mortensen [facility] [address] [place] [address] [address] [address] 02/23/2024 8:00 AM EDT Office Visit Hematology/Oncology [facility] [place] [address] [place] [address] [phone] Monica Ward, MD [address] [facility] [place] [address] 02/23/2024 8:30 AM EDT Hem/Onc Treatment Hematology/Oncology Treatment, [place] 200 [place] [address] [place], Chair 4 Hem Onc Scenery [address] [place], [place] [address] 02/24/2024 1:00 PM EDT Hem/Onc Treatment Hematology/Oncology Treatment, [place] 200 [place] [address] [place], Chair 11 Hem Onc Scenery [address] [place], [place] [address] 02/25/2024 1:30 PM EDT Hem/Onc Treatment Hematology/Oncology Treatment, [place] 200 [facility], [place] [phone] [place], Chair 8 Hem Onc Scenery 200 [facility] [place], [place] [address] 07/14/2024 3:00 PM EST Office Visit Pulmonary Medicine, [facility] [address] [facility] [address] Eloy Pond MD [address] [place] [facility] [place] [address] 10/15/2024 8:40 AM EDT Office Visit Rheumatology [address] [place] [phone] Samy Russo MD [facility] [place] [address] Health Maintenance Due Date Last Done Comments [...] this encounter Medical Devices Implanted Type Area Hydro Station Operator Device Identifier Shelf Expiration Date Model / Serial / Lot Port Implant W8f Poly Cath - [id number] Implanted:Qty : 1 on 12/31/2023 by Sin Burroughs MD at OR [facility] Right: Chest CR BARD : PERIPHERAL VASCULAR [id number] 10/09/2024 [id number] / / [id number] documented as of this encounter Procedures Procedure Name Priority Date/Time Associated Diagnosis Comments URINALYSIS, REFLEX TO MICROSCOPIC Routine 02/02/2024 3:23 PM EDT Burning with urination documented in this encounter Results * (ABNORMAL) URINALYSIS, REFLEX TO MICROSCOPIC (02/02/2024 3:23 PM EDT) Color, Urine Yellow 02/02/2024 3:59 PM EDT [facility] 56 Clarity, Urine Clear 02/02/2024 3:59 PM EDT [facility] 56 Glucose, Urine Negative mg/dL 02/02/2024 3:59 PM EDT [facility] 56 Bilirubin, Urine Negative 02/02/20 3:59 PM EDT [facility] 56 Ketone, Urine Negative mg/dL 02/02/2024 3:59 PM EDT [facility] 56 Specific [place], Urine 1.020 1.003 - 1.030 02/02/2024 3:59 PM EDT [facility] 56- Blood, Urine Negative 02/02/2024 3:59 PM EDT [facility] 56- pH, Urine 7.5 5.0 - 7.5 Units 02/02/2024 3:59 PM EDT [facility] 56- Protein, Urine Negative mg/dL 02/02/2024 3:59 PM EDT [facility] 56- Urobilinogen, Urine 0.2 mg/dL 02/02/2024 3:59 PM EDT [facility] 56- Nitrite, Urine Negative Negative 02/02/2024 3:59 PM EDT [facility] 56- Esterase, Urine Small(A) Negative 3:59 PM EDT [facility] 56- RBC, Urine 0-2 0 - 2 /HPF 02/02/2024 3:59 PM EDT [facility] 56- WBC, Urine 10-19(A) 0 - 2 /HPF 02/02/2024 3:59 PM EDT [facility] 56- Bacteria, Urine 26-50(A) 0 - 25 /HPF 02/02/20 3:59 PM EDT [facility] [place] 56- Transitional Epithelial Cells, Urine 1-4(A) None /HPF 02/02/2024 3:59 PM EDT [facility] [place] 56- Urine Urine specimen / Unknown Non-blood Collection / Unknown 02/02/2024 3:23 PM EDT 02/02/2024 3:35 PM EDT Monica Ward MD LAB URINE ORDERABLES [facility] 56- [address] [place] [address] documented in this encounter Visit Diagnoses Diagnosis Encounter for antineoplastic chemotherapy- Primary Cancer, metastatic to bone (HCC) Secondary malignant neoplasm of bone and bone marrow Metastatic adenocarcinoma to liver (HCC) 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 Start Infusion 02/02/2024 3:11 PM EDT 1,200 mg 550 mL/hr CARBOplatin (Paraplatin) 483 mg in D5W 250 mL infusion 483 mg (rounded from 482.5 mg, Target AUC = 5), IV Piggyback, at 510 mL/hr Administer over 30 Minutes, PROTECT FROM LIGHT (Max Creatinine Clearance at 125 ml/min for calculating AUC dose), ONCE, 1 dose, On Fri02/02/24 at 1700 Start Infusion 02/02/2024 3:48 PM EDT 483 mg 510 mL/hr etoposide (VEPESID) 190 mg in NSS 500 mL infusion 190 mg (rounded from 193 mg = 100 mg/m2 1.93 m2 Treatment Plan BSA from Recorded weight), IV Piggyback, ONCE, 1 dose, On Fri02/02/24 at 1730, Administer over 60 Minutes, Recommended concentration is less than or equal to 0.4 mg/mL. If concentration is greater than 0.4 mg/mL recommend to administer through 0.22 micron low protein binding filter. Start Infusion 02/02/2024 4:24 PM EDT 190 mg 519.5 mL/hr Fosaprepitant Dimeglumine (Emend) 150 mg, ondansetron (Zofran) 16 mg, dexamethasone sodium phosphate 12 mg in NSS 250 mL Infusion 150 mg, IV Piggyback, ONCE, 1 dose, On Fri02/02/24 at 1530, Administer over 30 Minutes, Infuse over 30 minutes. Give 30 minutes prior to chemotherapy. Start Infusion 02/02/2024 2:34 PM EDT 150 mg 538.4 mL/hr hEParin 100 UNIT/ML Lock Flush inj 500 Units 500 Units (5 mL), IV Lock, PRN Other, IV Flush, Starting on Fri02/02/24 at 1428, Until Fri02/02/24 at 2138, For 24 hours, Do not flush if lock, PICC, or central line not in place; IV infusing or unable to flush. Given 02/02/2024 5:28 PM EDT 500 Units NSS infusion Intravenous, at 50 mL/hr, PRN, Starting on Fri02/02/24 at 1530, Until Fri02/02/24 at 2138, Maintenance line Start Infusion 02/02/2024 2:31 PM EDT 50 mL/hr sodium chloride 0.9 % flush central line 10 mL 10 mL, IV Push, PRN Other, IV Flush, Starting on Fri02/02/24 at 1428, Until Fri02/02/24 at 2138, For 24 hours, Do not flush if lock, PICC, or central line not in place; IV infusing or unable to flush. Given 02/02/2024 5:28 PM EDT 20 mL documented in this encounter Care Teams Fluxer Relationship Specialty Start Date End Date Edel Clay MD [address] [place] [address] [place] [address] PCP - General Family Medicine 03/03/17 documented as of this encounter
--- OUTSIDE RECORDS SUMMARY | 2024-06-12 02:30 | External Medical Summary | Summary of Care ---
Author Name Unknown Organization [facility] Address [address] [place] [address] Phone [phone] Care Team Providers Care Commercial Real Estate Assistant Name Role Phone Edel Clay MD [...] PENDING TECENTRIQ & FULPHILA Monica Ward MD [address] [place] [address] [place] [address] Anc Hem/Onc Scenery [place] [address] [place] [phone] Referral ID Status Reason Start Date Expiration Date V isits Requested Visits Authorized [id number] Authorized 12/17/2023 06/13/2024 999 999 Encounter Details Date Type Department Care Team (Latest Contact Info) Description 02/03/2024 1:00 PM EDT Hem/Onc Treatment Hematology/Oncolog y Treatment, [address] [address] [place], Chair 9 Hem Onc Scenery [address] [place] [address] Encounter for antineoplastic chemotherapy*; Cancer, metastatic [...] Thyroiditis 07/18/2008 06/01/2019 Overview: thyroglobulin antibody >3000 [id number] 08/19/200608/10 Overview: Renamed Per Clinical Trials Billing Project. Pt is a participant in the [facility] (Consortium of Rheumatology Researchers of [place]) national data collection study. For further information please call Dr Temo Castaneda or Kim Ríos, RN, CCRC at [phone] [facility] RESEARCH OTHER*[id number] 08/19/2006 11/06/2009 Overview: Renamed Per Clinical Trials Billing Project. Pt is a participant in the [facility] (Consortium of Rheumatology Researchers of [place]) national data collection study. For further information please call Dr Temo Castaneda or Kim Ríos, RN, CCRC at [phone] Arthritis, rheumatoid 07/01/20062016 Abnormal blood chemistry 05/02/2006 [...] Description 02/23/2024 7:30 AM EDT Laboratory Laboratory [facility] 200 [facility] [place] [phone] [facility] [address] [place] [address] 02/23/2024 8:00 AM EDT Office Visit Hematology/Oncology [facility] [address] [place] [phone] Monica Ward MD [address] [place] [address] [place] [address] 02/23/2024 8:30 AM EDT Hem/Onc Treatment Hematology/Oncology Treatment, [place] [address] [place] [phone] Balbina, Chair [address] Hem On[address] [place] [address] 02/24/2024 1:00 PM EDT Hem/Onc Treatment Hematology/Oncology Treatment, [place] 200 [facility] [place] [address] Bal[place], Chair 11 Hem Onc Scenery 200 [facility] [place] [address] 02/25/2024 1:30 PM EDT Hem/Onc Treatment Hematology/Oncology Treatment, [place] 200 [facility], [place] [phone] Bal[place]ina, Chair 8 Hem Onc Scenery 200 [facility] [place], [place] [address] 07/14/2024 3:00 PM EST Office Visit Pulmonary Medicine, [facility] 132 [facility] [place] [address] Eloy Pond MD [address] [facility] [address] 10/15/2024 8:40 AM EDT Office Visit Rheumatology [address] [place] [address] Samy Russo MD 0653 [facility] [place] [address] Health Maintenance Due Date Last Done Comments [...] this encounter Medical Devices Implanted Type Area Envelope Patternmaker Device Identifier Shelf Expiration Date Model / Serial / Lot Port Implant W8f Poly Cath - [id number] Implanted:Qty : 1 on 12/31/2023 by Sin Burroughs MD at OR [facility] Right: Chest CR BARD : PERIPHERAL VASCULAR [id number] 10/09/2024 [id number] / / [id number] documented as of this encounter Visit Diagnoses [...] mL documented in this encounter Care Teams Commercial Real Estate Assistant Relationship Specialty Start Date End Date Edel Clay MD [address] [place] [address] [place] [phone] PCP - General Family Medicine 03/03/17 documented as of this encounter
--- OUTSIDE RECORDS SUMMARY | 2024-06-12 02:30 | External Medical Summary | Summary of Care ---
Author Name Unknown Organization [facility] Address [address] [place] [address] Phone [phone] Care Team Providers Care Copra Sampler Name Role Phone Edel Clay MD Primary [...] PENDING TECENTRIQ & FULPHILA Monica Ward MD [address] [place], [place] [address] [place] [phone] Anc Hem/Onc [address] [address] Referral ID Status Reason Start Date Expiration Date V isits Requested Visits Authorized [id number] Authorized 12/17/2023 06/13/2024 999 999 Encounter Details Date Type Department Care Team (Latest Contact Info) Description 02/05/2024 4:00 PM EDT Immunization/ Injection Hematology/Oncology Treatment, [address] [address] Encounter for antineoplastic chemotherapy*; Cancer, [...] Thyroiditis 07/18/2008 06/01/2019 Overview: thyroglobulin antibody >3000 [id number] COUNTY [facility]ITALSHARMAINE 08/19/200608/10 Overview: Renamed Per Clinical Trials Billing Project. Pt is a participant in the [facility] (Consortium of Rheumatology Researchers of [place]) national data collection study. For further information please call Dr Temo Castaneda or Kim Ríos, RN, CCRC at [phone] [facility] RESEARCH OTHER*[id number] 08/19/2006 11/06/2009 Overview: Renamed Per Clinical Trials Billing Project. Pt is a participant in the [facility] (Consortium of Rheumatology Researchers of [place]) national data collection study. For further information please call Dr Temo Castaneda or Kim Ríos, RN, CCRC at [phone] Arthritis, rheumatoid 07/01/20062016 Abnormal blood chemistry 05/02/2006 [...] Nursing Notes * Diya Ness LPN - 02/05/2024 4:04 PM EDT Pt arrived for Fulphila injection. Administered in ROYCE. Pt tolerated well. To return in 3 weeks. Discharged in stable condition. documented in this encounter Plan of Treatment Upcoming Encounters Date Type Department Care Team (Late st Contact Info) Description 02/23/2024 7:30 AM EDT Laboratory [place] [phone] [place] [address] 02/23/2024 8:00 AM EDT Office Visit Hematology/Oncology [place] [phone] Monica Ward MD 400 [facility] [place] [phone] 02/23/2024 8:30 AM EDT Hem/Onc Treatment Hematology/Oncology Treatment, [address], [place] [address] Bal[place], Chair 4 Hem Onc Scenery 200 [facility] [place], [place] [address] 02/24/2024 1:00 PM EDT Hem/Onc Treatment Hematology/Oncology Treatment, [address], [place] [phone] Bal[place], Chair 11 Hem Onc Scenery 200 [facility] [place], [place] [address] 02/25/2024 1:30 PM EDT Hem/Onc Treatment Hematology/Oncology Treatment, [address], [place] [phone] Bal[place]ina, Chair 8 Hem Onc Scenery [address] [place] [address] [place], [place] [address] 07/14/2024 3:00 PM EST Office Visit Pulmonary Medicine, [facility] 132 [facility] [place] [address] Eloy Pond MD [address] [facility] [place] [address] 10/15/2024 8:40 AM EDT Office Visit Rheumatology [address] [place] [address] Samy Russo MD 2[address] [facility] [place] [address] Health Maintenance Due Date Last Done Comments [...] this encounter Medical Devices Implanted Type Area Sandstone Inspector Repairer Device Identifier Shelf Expiration Date Model / Serial / Lot Port Implant W8f Poly Cath - [id number] Implanted:Qty : 1 on 12/31/2023 by Sin Burroughs MD at OR [facility] Right: Chest CR BARD : PERIPHERAL VASCULAR [id number] 10/09/2024 [id number] / / [id number] documented as of this encounter Visit Diagnoses [...] mg 6 mg, Subcutaneous, ONCE, On Lizbeth 02/05/24 at 1630, For 1 dose Given 02/05/2024 4:01 PM EDT 6 mg Arm L eft Upper documented in this encounter Care Teams Copra Sampler Relationship Specialty Start Date End Date Edel Clay MD [address] [place] [address] [place] [address] PCP - General Family Medicine 03/03/17 documented as of this encounter
--- OUTSIDE RECORDS SUMMARY | 2024-06-12 02:30 | External Medical Summary ---
Author Name Unknown Address Unknown Organization K01:[facility] [place] [address] [facility] [address] [facility] [address] Laboratory Report Ordering Provider Test Date Status AKILAH ROMERO 02/23/2024 07:41:58 Final Observation Date Value Abnormality Reference (Units ) Status TSH 02/23/2024 07:41:58 18.40 Above high normal 0. 27-4.20 (uIU/mL) Final Performing Location [facility] - [address] [facility] [address]
--- OUTSIDE RECORDS SUMMARY | 2024-06-12 02:31 | External Medical Summary | Summary of Care ---
Author Name Unknown Organization [facility] Address [address] [place] [address] Phone [phone] Care Team Providers Care Curator Horticultural Museum Name Role Phone Edel Clay MD Primary [...] PENDING TECENTRIQ & FULPHILA Monica Ward MD [address] [place] [address] [place] [address] Anc [facility]c [facility] [address] [address] Referral ID Status Reason Start Date Expiration Date V isits Requested Visits Authorized [id number] Authorized 12/17/2023 06/13/2024 999 999 Encounter Details Date Type Department Care Team (Latest Contact Info) Description 02/04/2024 1:30 PM EDT Hem/Onc Treatment Hematology/Oncolog y Treatment, [address] [address] Encounter for antineoplastic chemotherapy*; Cancer, [...] as of this encounter (statuses as of 02/21/2024) Medications Medication Sig Dispensed Refills Start Date [...] as of this encounter (statuses as of 02/21/2024) Active Problems Problem Noted Date Diagnosed Date [...] as of this encounter (statuses as of 02/21/2024) Resolved Problems Problem Noted Date Diagnosed Date [...] Thyroiditis 07/18/2008 06/01/2019 Overview: thyroglobulin antibody >3000 [id number] MARY'S HEALTH CENTERSHARMAINE 08/19/200608/10 Overview: Renamed Per Clinical Trials Billing Project. Pt is a participant in the [facility] (Consortium of Rheumatology Researchers of [place]) national data collection study. For further information please call Dr Temo Castaneda or Kim Ríos, RN, CCRC at [phone] [facility] RESEARCH OTHER*[id number] 08/19/2006 11/06/2009 Overview: Renamed Per Clinical Trials Billing Project. Pt is a participant in the [facility] (Consortium of Rheumatology Researchers of [place]) national data collection study. For further information please call Dr Temo Castaneda or Kim Ríos, RN, CCRC at [phone] Arthritis, rheumatoid 07/01/20062016 Abnormal blood chemistry 05/02/2006 Overview: positive rheumatoid factor. Metabolic syndrome 04/29/2006 0 Overview: insulin level 16 Mixed dyslipidemia 02/06/2006 9 Overview: Per Lipid Taxonomy. chol 192, hdl 26, trig 403 Allergic rhinitis due to pollen 01/30/2006 03/03/2017 Obesity, BMI not known 08/07 Overview: Per Obesity Taxonomy Denture irritation 0 documented as of this encounter (statuses as of 02/21/2024) Immunizations Name Administration Dates Next Due COVID-19 [...] Description 02/23/2024 7:30 AM EDT Laboratory Laboratory [facility] [place] 200 [facility] [place] [phone] [place], Lab [facility] 200 [facility] [place] [address] 02/23/2024 8:00 AM EDT Office Visit Hematology/Oncology [facility] [address] [place] [phone] Monica Ward MD [address] [place], [place] [address] [place] [phone] 02/23/2024 8:30 AM EDT Hem/Onc Treatment Hematology/Oncology Treatment, [address] [address] [place], Chair 4 Hem Onc [facility] [address] [place] [address] [place] [address] 02/24/2024 1:00 PM EDT Hem/Onc Treatment Hematology/Oncology Treatment, [address] [phone] [place], Chair 11 Hem Onc Scenery 200 [facility] [place] [address] 02/25/2024 1:30 PM EDT Hem/Onc Treatment Hematology/Oncology Treatment, [address] [address] [place], Chair 8 Hem Onc Scenery 200 [facility] [place] [address] 07/14/2024 3:00 PM EST Office Visit Pulmonary Medicine, [facility] 132 [facility] [place] [address] Eloy Pond MD [address] [facility] [place] [address] 10/15/2024 8:40 AM EDT Office Visit Rheumatology [address] [place] [address] Samy Russo MD [address] [facility] [place], [place] [address] Health Maintenance Due Date Last Done Comments [...] this encounter Medical Devices Implanted Type Area Junior Net Developer Device Identifier Shelf Expiration Date Model / Serial / Lot Port Implant W8f Poly Cath - [id number] Implanted:Qty : 1 on 12/31/2023 by Sin Burroughs MD at OR [facility] Right: Chest CR BARD : PERIPHERAL VASCULAR [id number] 10/09/2024 [id number] / / [id number] documented as of this encounter Visit Diagnoses [...] mL/hr documented in this encounter Care Teams Curator Horticultural Museum Relationship Specialty Start Date End Date Edel Clay MD [address] [place] [address] [place] [address] PCP - General Family Medicine 03/03/17 documented as of this encounter
--- OUTSIDE RECORDS SUMMARY | 2024-06-12 02:31 | External Medical Summary | Summary of Care ---
Author Name Unknown Organization [facility] Address [address] [place] [address] Phone [phone] Care Team Providers Care Mold Yard Crane Operator Name Role Phone Edel Clay MD [...] TECENTRIQ & FULPHILA Monica Ward MD [address] [place] [address] [place] [address] Anc Hem/Onc Scenery [place] [address] [place] [phone] Referral ID Status Reason Start Date Expiration Date V isits Requested Visits Authorized [id number] Authorized 12/17/2023 06/13/2024 999 999 Encounter Details Date Type Department Care Team (Latest Contact Info) Description 02/03/2024 1:00 PM EDT Hem/Onc Treatment Hematology/Oncolog y Treatment, [address] [address] [place], Chair 9 Hem Onc Scenery [address] [place] [address] Encounter for antineoplastic chemotherapy*; Cancer, metastatic [...] Thyroiditis 07/18/2008 06/01/2019 Overview: thyroglobulin antibody >3000 [id number]-[id number] HOSPITALNA 08/19/200608/10 Overview: Renamed Per Clinical Trials Billing Project. Pt is a participant in the [facility] (Consortium of Rheumatology Researchers of [place]) national data collection study. For further information please call Dr Temo Castaneda or Kim Ríos, RN, CCRC at [phone] [facility] RESEARCH OTHER*[id number] 08/19/2006 11/06/2009 Overview: Renamed Per Clinical Trials Billing Project. Pt is a participant in the [facility] (Consortium of Rheumatology Researchers of [place]) national data collection study. For further information please call Dr Temo Castaneda or Kim Ríos, RN, CCRC at [phone] Arthritis, rheumatoid 07/01/20062016 Abnormal blood chemistry 05/02/2006 [...] Description 02/23/2024 7:30 AM EDT Laboratory Laboratory [facility] 200 [facility] [place] [phone] [facility] [address] [place] [address] 02/23/2024 8:00 AM EDT Office Visit Hematology/Oncology [facility] [address] [place] [address] Monica Ward MD [address] [place] [address] [place] [address] 02/23/2024 8:30 AM EDT Hem/Onc Treatment Hematology/Oncology Treatment, [place] [address] [place] [phone] Balb[place], Chair 4 Hem Onc [address] [place] [address] 02/24/2024 1:00 PM EDT Hem/Onc Treatment Hematology/Oncology Treatment, [place] 200 [place] [address] Balb[place], Chair 11 Hem Onc Scenery 200 [facility] [place] [address] 02/25/2024 1:30 PM EDT Hem/Onc Treatment Hematology/Oncology Treatment, [place] 200 [facility], [place] [phone] Balbina, Chair 8 Hem Onc Scenery 200 [facility] [place], [place] [address] 07/14/2024 3:00 PM EST Office Visit Pulmonary Medicine, [facility] 132 [facility] [place] [address] Eloy Pond MD [address] [facility] [address] 10/15/2024 8:40 AM EDT Office Visit Rheumatology [address] [place] [address] Samy Russo MD 3[address] [facility] [place] [address] Health Maintenance Due Date Last Done Comments [...] this encounter Medical Devices Implanted Type Area Prep Manager Device Identifier Shelf Expiration Date Model / Serial / Lot Port Implant W8f Poly Cath - [id number] Implanted:Qty : 1 on 12/31/2023 by Sin Burroughs MD at OR [facility] Right: Chest CR BARD : PERIPHERAL VASCULAR [id number] 10/09/2024 [id number] / / [id number] documented as of this encounter Visit Diagnoses [...] mL documented in this encounter Care Teams Mold Yard Crane Operator Relationship Specialty Start Date End Date Edel Clay MD [address] [place] [address] [place] [phone] PCP - General Family Medicine 03/03/17 documented as of this encounter
--- OUTSIDE RECORDS SUMMARY | 2024-06-12 02:31 | External Medical Summary | Summary of Care ---
Author Name Unknown Organization [facility] Address [address] [place] [address] Phone [phone] Care Team Providers Care Special Collections Librarian Name Role Phone Edel Clay MD [...] TECENTRIQ & BATSHEVA Ward, Monica Carmona MD [address] [place] [address] [place] [address] Anc Hem/Onc [address] [address] Referral ID Status Reason Start Date Expiration Date V isits Requested Visits Authorized [id number] Authorized 12/17/2023 06/13/2024 999 999 Encounter Details Date Type Department Care Team (Latest Contact Info) Description 02/02/2024 1:30 PM EDT Hem/Onc Treatment Hematology/Oncolog y Treatment, [address] [address] Balbina Chair 7 Hem Onc [address] [place] [address] Encounter for antineoplastic chemotherapy*; [...] multiple sites with positive rheumatoid factor ([facility]) INJECT 125 MG ( ONE SYRINGE [...] Thyroiditis 07/18/2008 06/01/2019 Overview: thyroglobulin antibody >3000 [id number]-[facility]ARMAINE 08/19/200608/10 Overview: Renamed Per Clinical Trials Billing Project. Pt is a participant in the [facility] (Consortium of Rheumatology Researchers of [facility]) national data collection study. For further information please call Dr Temo Castaneda or Kim Ríos, RN, CCRC at [phone] [facility] RESEARCH OTHER*[id number] 08/19/2006 11/06/2009 Overview: Renamed Per Clinical Trials Billing Project. Pt is a participant in the [facility] (Consortium of Rheumatology Researchers of [place]) national data collection study. For further information please call Dr Temo Castaneda or Kim Ríos, RN, CCRC at [phone] Arthritis, rheumatoid 07/01/20062016 Abnormal blood chemistry 05/02/2006 [...] State [place] [address] [place] [phone] Diana Mortensen [facility] [address] [place] [address] [address] [address] 02/23/2024 8:00 AM EDT Office Visit Hematology/Oncology [place] [address] [place] [address] [phone] Monica Ward, MD 400 [facility] [place] [address] 02/23/2024 8:30 AM EDT Hem/Onc Treatment Hematology/Oncology Treatment, [place] 200 [place] [address] Bal[place], Chair 4 Hem Onc Scenery [address] [place], [place] [address] 02/24/2024 1:00 PM EDT Hem/Onc Treatment Hematology/Oncology Treatment, [place] 200 [place] [address] [place], Chair 11 Hem Onc Scenery [address] [place], [place] [address] 02/25/2024 1:30 PM EDT Hem/Onc Treatment Hematology/Oncology Treatment, [place] [address] [facility], [place] [address] Bal[place], Chair 8 Hem Onc Scenery [address] [facility] [place], [place] [address] 07/14/2024 3:00 PM EST Office Visit Pulmonary Medicine, [facility] 132 [facility] [address] Eloy Pond MD [address] [place] [facility] [place] [address] 10/15/2024 8:40 AM EDT Office Visit Rheumatology [address] [place] [phone] Samy Russo MD [facility]0 [place] [address] Health Maintenance Due Date Last Done Comments [...] this encounter Medical Devices Implanted Type Area Ui Architect Device Identifier Shelf Expiration Date Model / Serial / Lot Port Implant W8f Poly Cath - [id number] Implanted:Qty : 1 on 12/31/2023 by Sin Burroughs MD at OR [facility] Right: Chest CR BARD : PERIPHERAL VASCULAR [id number] 10/09/2024 [id number] / / [id number] documented as of this encounter Procedures Procedure Name Priority Date/Time Associated Diagnosis Comments URINALYSIS, REFLEX TO MICROSCOPIC Routine 02/02/2024 3:23 PM EDT Burning with urination documented in this encounter Results * (ABNORMAL) URINALYSIS, REFLEX TO MICROSCOPIC (02/02/2024 3:23 PM EDT) Color, Urine Yellow 02/02/2024 3:59 PM EDT [facility] 56 Clarity, Urine Clear 02/02/2024 3:59 PM EDT [facility] 56 Glucose, Urine Negative mg/dL 02/02/2024 3:59 PM EDT [facility] 56 Bilirubin, Urine Negative 02/02/20 3:59 PM EDT [facility] 56 Ketone, Urine Negative mg/dL 02/02/2024 3:59 PM EDT [facility] 56 Specific [place], Urine 1.020 1.003 - 1.030 02/02/2024 3:59 PM EDT [facility] 56- Blood, Urine Negative 02/02/2024 3:59 PM EDT [facility] 56- pH, Urine 7.5 5.0 - 7.5 Units 02/02/2024 3:59 PM EDT [facility] 56- Protein, Urine Negative mg/dL 02/02/2024 3:59 PM EDT [facility] 56- Urobilinogen, Urine 0.2 mg/dL 02/02/2024 3:59 PM EDT [facility] 56- Nitrite, Urine Negative Negative 02/02/2024 3:59 PM EDT [facility] 56- Esterase, Urine Small(A) Negative 3:59 PM EDT [facility] 56- RBC, Urine 0-2 0 - 2 /HPF 02/02/2024 3:59 PM EDT [facility] 56- WBC, Urine 10-19(A) 0 - 2 /HPF 02/02/2024 3:59 PM EDT [facility] 56- Bacteria, Urine 26-50(A) 0 - 25 /HPF 02/02/20 3:59 PM EDT [facility] 56- Transitional Epithelial Cells, Urine 1-4(A) None /HPF 02/02/2024 3:59 PM EDT [facility] 56- Urine Urine specimen / Unknown Non-blood Collection / Unknown 02/02/2024 3:23 PM EDT 02/02/2024 3:35 PM EDT Monica Ward MD LAB URINE ORDERABLES [facility] 56- [address] [place] [address] documented in this encounter Visit [...] mL documented in this encounter Care Teams Special Collections Librarian Relationship Specialty Start Date End Date Edel Clay MD [address] [place] [address] [place] [address] PCP - General Family Medicine 03/03/17 documented as of this encounter
--- OUTSIDE RECORDS SUMMARY | 2024-06-12 02:31 | External Medical Summary | Summary of Care ---
Author Name Unknown Organization [facility] Address [address] [place] [address] Phone [phone] Care Team Providers Care Rattan Worker Name Role Phone Edel Clay MD [...] PENDING TECENTRIQ & FULPHILA Monica Ward MD [address] [place] [address] [place] [address] Anc Hem[place]Onc [facility] [address] [address] Referral ID Status Reason Start Date Expiration Date V isits Requested Visits Authorized [id number] Authorized 12/17/2023 06/13/2024 999 999 Encounter Details Date Type Department Care Team (Latest Contact Info) Description 02/04/2024 1:30 PM EDT Hem/Onc Treatment Hematology/Oncolog y Treatment, [address] [address] Encounter for antineoplastic chemotherapy*; Cancer, [...] Thyroiditis 07/18/2008 06/01/2019 Overview: thyroglobulin antibody >3000 [id number]-IISGXKCWESTERN MISS[facility]ENTER[facility]ARMAINE 08/19/200608/10 Overview: Renamed Per Clinical Trials Billing Project. Pt is a participant in the CORRO (Consortium of Rheumatology Researchers of [place]) national data collection study. For further information please call Dr Temo Castaneda or Kim Ríos, RN, CCRC at [phone] [facility] RESEARCH OTHER*[id number] 08/19/2006 11/06/2009 Overview: Renamed Per Clinical Trials Billing Project. Pt is a participant in the CORRONA (Consortium of Rheumatology Researchers of [place]) national data collection study. For further information please call Dr Temo Castaneda or Kim Ríos, RN, CCRC at [phone] Arthritis, rheumatoid 07/01/20062016 Abnormal blood chemistry 05/02/2006 [...] Description 02/23/2024 7:30 AM EDT Laboratory Laboratory [facility] [place] 200 [facility] [place] [phone] [place], Lab [facility] [address] [facility] [place] [address] 02/23/2024 8:00 AM EDT Office Visit Hematology/Oncology [facility] [address] [place] [address] Monica Ward MD [address] [place], [place] [address] [place] [phone] 02/23/2024 8:30 AM EDT Hem/Onc Treatment Hematology/Oncology Treatment, [address] [address] [place], Chair 4 Hem Onc [facility] [address] [place] [address] [place] [address] 02/24/2024 1:00 PM EDT Hem/Onc Treatment Hematology/Oncology Treatment, [address] [phone] [place], Chair 11 Hem Onc Scenery 200 [facility] [place] [address] 02/25/2024 1:30 PM EDT Hem/Onc Treatment Hematology/Oncology Treatment, [address] [address] [place], Chair 8 Hem Onc Scenery 200 [facility] [place] [address] 07/14/2024 3:00 PM EST Office Visit Pulmonary Medicine, [facility] [address] [facility] [place] [address] Eloy Pond MD [address] [facility] [place] [address] 10/15/2024 8:40 AM EDT Office Visit Rheumatology [address] [place] [address] Samy Russo MD [address] [facility] [place], [place] [address] Health Maintenance Due Date Last Done Comments [...] this encounter Medical Devices Implanted Type Area Cooling Tower Technician Device Identifier Shelf Expiration Date Model / Serial / Lot Port Implant W8f Poly Cath - [id number] Implanted:Qty : 1 on 12/31/2023 by Sin Burroughs MD at OR [facility] Right: Chest CR BARD : PERIPHERAL VASCULAR [id number] 10/09/2024 [id number] / / [id number] documented as of this encounter Visit Diagnoses [...] mL/hr documented in this encounter Care Teams Rattan Worker Relationship Specialty Start Date End Date Edel Clay MD [address] [place] [address] [place] [address] PCP - General Family Medicine 03/03/17 documented as of this encounter
--- OUTSIDE RECORDS SUMMARY | 2024-06-12 02:31 | External Medical Summary | Summary of Care ---
Author Name Unknown Organization [facility] Address [address] [place] [address] Phone [phone] Care Team Providers Care Skiver Blockers Name Role Phone Edel Clay MD Primary [...] TECENTRIQ & BATSHEVA Ward, Monica Carmona MD [address] [place] [address] [place] [address] Anc Hem/Onc [address] [address] Referral ID Status Reason Start Date Expiration Date V isits Requested Visits Authorized [id number] Authorized 12/17/2023 06/13/2024 999 999 Encounter Details Date Type Department Care Team (Latest Contact Info) Description 02/02/2024 1:30 PM EDT Hem/Onc Treatment Hematology/Oncolog y Treatment, [address] [address] [place] Chair 7 Hem Onc [address] [place] [address] Encounter for antineoplastic chemotherapy*; [...] multiple sites with positive rheumatoid factor [facility] INJECT 125 MG ( ONE [...] Thyroiditis 07/18/2008 06/01/2019 Overview: thyroglobulin antibody >3000 [id number]-[facility] 08/19/200608/10 Overview: Renamed Per Clinical Trials Billing Project. Pt is a participant in the CORRO (Consortium of Rheumatology Researchers of [facility]) national data collection study. For further information please call Dr Temo Castaneda or Kim Ríos, RN, CCRC at [phone] [facility] RESEARCH OTHER*[id number] 08/19/2006 11/06/2009 Overview: Renamed Per Clinical Trials Billing Project. Pt is a participant in the CORRONA (Consortium of Rheumatology Researchers of [place]) national data collection study. For further information please call Dr Temo Castaneda or Kim Ríos, RN, CCRC at [phone] Arthritis, rheumatoid 07/01/20062016 Abnormal blood chemistry 05/02/2006 [...] State Silvia Mortensen [address] [place] [address] [address] Diana Mortensen [facility] [address] [place] [address] [address] 02/23/2024 8:00 AM EDT Office Visit Hematology/Oncology [place] [address] [address] Monica Ward, MD [address] [facility] [place] [address] 02/23/2024 8:30 AM EDT Hem/Onc Treatment Hematology/Oncology Treatment, [place] 200 [place] [address] [place], Chair 4 Hem Onc Scenery [address] [place], [place] [address] 02/24/2024 1:00 PM EDT Hem/Onc Treatment Hematology/Oncology Treatment, [place] 200 [place] [address] [place], Chair 11 Hem Onc Scenery [address] [place], [place] [address] 02/25/2024 1:30 PM EDT Hem/Onc Treatment Hematology/Oncology Treatment, [place] 200 [facility], [place] [phone] [place], Chair 8 Hem Onc Scenery 200 [facility] [place], [place] [address] 07/14/2024 3:00 PM EST Office Visit Pulmonary Medicine, [facility] 132 [facility] [address] Eloy Pond MD [address] [place] [facility] [address] 10/15/2024 8:40 AM EDT Office Visit Rheumatology [address] [place] [phone] Samy Russo MD [facility]0 [facility] [address] Health Maintenance Due Date Last Done Comments [...] this encounter Medical Devices Implanted Type Area Case Management Coordinator Device Identifier Shelf Expiration Date Model / Serial / Lot Port Implant W8f Poly Cath - [id number] Implanted:Qty : 1 on 12/31/2023 by Sin Burroughs MD at OR [facility] Right: Chest CR BARD : PERIPHERAL VASCULAR [id number] 10/09/2024 [id number] / / [id number] documented as of this encounter Procedures Procedure Name Priority Date/Time Associated Diagnosis Comments URINALYSIS, REFLEX TO MICROSCOPIC Routine 02/02/2024 3:23 PM EDT Burning with urination documented in this encounter Results * (ABNORMAL) URINALYSIS, REFLEX TO MICROSCOPIC (02/02/2024 3:23 PM EDT) Color, Urine Yellow 02/02/2024 3:59 PM EDT [facility] 56 Clarity, Urine Clear 02/02/2024 3:59 PM EDT [facility] 56 Glucose, Urine Negative mg/dL 02/02/2024 3:59 PM EDT [facility] 56 Bilirubin, Urine Negative 02/02/20 3:59 PM EDT [facility] 56 Ketone, Urine Negative mg/dL 02/02/2024 3:59 PM EDT [facility] 56 Specific [place], Urine 1.020 1.003 - 1.030 02/02/2024 3:59 PM EDT [facility] 56- Blood, Urine Negative 02/02/2024 3:59 PM EDT [facility] 56- pH, Urine 7.5 5.0 - 7.5 Units 02/02/2024 3:59 PM EDT [facility] 56- Protein, Urine Negative mg/dL 02/02/2024 3:59 PM EDT [facility] 56- Urobilinogen, Urine 0.2 mg/dL 02/02/2024 3:59 PM EDT [facility] 56- Nitrite, Urine Negative Negative 02/02/2024 3:59 PM EDT [facility] 56- Esterase, Urine Small(A) Negative 3:59 PM EDT [facility] 56- RBC, Urine 0-2 0 - 2 /HPF 02/02/2024 3:59 PM EDT [facility] 56- WBC, Urine 10-19(A) 0 - 2 /HPF 02/02/2024 3:59 PM EDT [facility] 56- Bacteria, Urine 26-50(A) 0 - 25 /HPF 02/02/20 3:59 PM EDT [facility] 56- Transitional Epithelial Cells, Urine 1-4(A) None /HPF 02/02/2024 3:59 PM EDT [facility] 56- Urine Urine specimen / Unknown Non-blood Collection / Unknown 02/02/2024 3:23 PM EDT 02/02/2024 3:35 PM EDT Monica Ward MD LAB URINE ORDERABLES [facility] 56- [address] [place] [address] documented in this encounter Visit [...] mL documented in this encounter Care Teams Skiver Blockers Relationship Specialty Start Date End Date Edel Clay MD [address] [place] [address] [place] [address] PCP - General Family Medicine 03/03/17 documented as of this encounter
--- OUTSIDE RECORDS SUMMARY | 2024-06-12 02:31 | External Medical Summary | Summary of Care ---
Author Name Unknown Organization [facility] Address [address] [place] [address] Phone [phone] Care Team Providers Care Chief Medical Physicist Name Role Phone Edel Clay MD Primary [...] TECENTRIQ & BATSHEVA Ward, Monica Carmona MD [address] [place] [address] [place] [address] Anc Hem/Onc [address] [address] Referral ID Status Reason Start Date Expiration Date V isits Requested Visits Authorized [id number] Authorized 12/17/2023 06/13/2024 999 999 Encounter Details Date Type Department Care Team (Latest Contact Info) Description 02/02/2024 1:30 PM EDT Hem/Onc Treatment Hematology/Oncolog y Treatment, [address] [address] [place] Chair 7 Hem Onc [address] [place] [address] Encounter for antineoplastic chemotherapy*; Cancer, metastatic [...] Thyroiditis 07/18/2008 06/01/2019 Overview: thyroglobulin antibody >3000 [id number]-[facility] 08/19/200608/10 Overview: Renamed Per Clinical Trials Billing Project. Pt is a participant in the CORRO (Consortium of Rheumatology Researchers of [facility]) national data collection study. For further information please call Dr Temo Castaneda or Kim Ríos, RN, CCRC at [phone] [facility] RESEARCH OTHER*[id number] 08/19/2006 11/06/2009 Overview: Renamed Per Clinical Trials Billing Project. Pt is a participant in the CORRONA (Consortium of Rheumatology Researchers of [place]) national data collection study. For further information please call Dr Temo Castaneda or Kim Ríos, RN, CCRC at [phone] Arthritis, rheumatoid 07/01/20062016 Abnormal blood chemistry 05/02/2006 [...] State Silvia Mortensen [address] [place] [address] [address] Diana Mortensen [facility] [address] [place] [address] 02/23/2024 8:00 AM EDT Office Visit Hematology/Oncology [place] [address] [place] [address] [address] Monica Ward, MD [address] [facility] [place] [address] 02/23/2024 8:30 AM EDT Hem/Onc Treatment Hematology/Oncology Treatment, [place] 200 [place] [address] [place], Chair 4 Hem Onc Scenery [address] [place], [place] [address] 02/24/2024 1:00 PM EDT Hem/Onc Treatment Hematology/Oncology Treatment, [place] 200 [place] [address] [place], Chair 11 Hem Onc Scenery [address] [place], [place] [address] 02/25/2024 1:30 PM EDT Hem/Onc Treatment Hematology/Oncology Treatment, [place] 200 [facility], [place] [phone] [place], Chair 8 Hem Onc Scenery 200 [facility] [place], [place] [address] 07/14/2024 3:00 PM EST Office Visit Pulmonary Medicine, [facility] 132 [facility] [address] Eloy Pond MD [address] [place] [facility] [place] [address] 10/15/2024 8:40 AM EDT Office Visit Rheumatology [address] [place] [phone] Samy Russo MD [facility]0 [facility] [place] [address] Health Maintenance Due Date Last Done Comments [...] this encounter Medical Devices Implanted Type Area Commercial Internship Device Identifier Shelf Expiration Date Model / Serial / Lot Port Implant W8f Poly Cath - [id number] Implanted:Qty : 1 on 12/31/2023 by Sin Burroughs MD at OR [facility] Right: Chest CR BARD : PERIPHERAL VASCULAR [id number] 10/09/2024 [id number] / / [id number] documented as of this encounter Procedures Procedure Name Priority Date/Time Associated Diagnosis Comments URINALYSIS, REFLEX TO MICROSCOPIC Routine 02/02/2024 3:23 PM EDT Burning with urination documented in this encounter Results * (ABNORMAL) URINALYSIS, REFLEX TO MICROSCOPIC (02/02/2024 3:23 PM EDT) Color, Urine Yellow 02/02/2024 3:59 PM EDT [facility] 56 Clarity, Urine Clear 02/02/2024 3:59 PM EDT [facility] 56 Glucose, Urine Negative mg/dL 02/02/2024 3:59 PM EDT [facility] 56 Bilirubin, Urine Negative 02/02/20 3:59 PM EDT [facility] 56 Ketone, Urine Negative mg/dL 02/02/2024 3:59 PM EDT [facility] 56 Specific [place], Urine 1.020 1.003 - 1.030 02/02/2024 3:59 PM EDT [facility] 56- Blood, Urine Negative 02/02/2024 3:59 PM EDT [facility] 56- pH, Urine 7.5 5.0 - 7.5 Units 02/02/2024 3:59 PM EDT [facility] 56- Protein, Urine Negative mg/dL 02/02/2024 3:59 PM EDT [facility] 56- Urobilinogen, Urine 0.2 mg/dL 02/02/2024 3:59 PM EDT [facility] 56- Nitrite, Urine Negative Negative 02/02/2024 3:59 PM EDT [facility] 56- Esterase, Urine Small(A) Negative 3:59 PM EDT [facility] 56- RBC, Urine 0-2 0 - 2 /HPF 02/02/2024 3:59 PM EDT [facility] 56- WBC, Urine 10-19(A) 0 - 2 /HPF 02/02/2024 3:59 PM EDT [facility] 56- Bacteria, Urine 26-50(A) 0 - 25 /HPF 02/02/20 3:59 PM EDT [facility] 56- Transitional Epithelial Cells, Urine 1-4(A) None /HPF 02/02/2024 3:59 PM EDT [facility] 56- Urine Urine specimen / Unknown Non-blood Collection / Unknown 02/02/2024 3:23 PM EDT 02/02/2024 3:35 PM EDT Monica Ward MD LAB URINE ORDERABLES [facility] 56- [address] [place] [address] documented in this encounter Visit [...] mL documented in this encounter Care Teams Chief Medical Physicist Relationship Specialty Start Date End Date Edel Clay MD [address] [place] [address] [place] [address] PCP - General Family Medicine 03/03/17 documented as of this encounter
--- OUTSIDE RECORDS SUMMARY | 2024-06-12 02:31 | External Medical Summary | Summary of Care ---
Author Name Unknown Organization [facility] Address [address] [place] [address] Phone [phone] Care Team Providers Care Helicopter Utility Aircrewman Name Role Phone Edel Clay MD Primary [...] TECENTRIQ & BATSHEVA Ward, Monica Carmona MD [address] [place] [address] [place] [phone] Anc Hem/Onc [address] [address] Referral ID Status Reason Start Date Expiration Date V isits Requested Visits Authorized [id number] Authorized 12/17/2023 06/13/2024 999 999 Encounter Details Date Type Department Care Team (Latest Contact Info) Description 02/02/2024 1:30 PM EDT Hem/Onc Treatment Hematology/Oncolog y Treatment, [address] [address] [place] Chair 7 Hem Onc [address] [place] [address] Encounter for antineoplastic chemotherapy*; Cancer, metastatic [...] Thyroiditis 07/18/2008 06/01/2019 Overview: thyroglobulin antibody >3000 [id number]-[facility] 08/19/200608/10 Overview: Renamed Per Clinical Trials Billing Project. Pt is a participant in the CORRO (Consortium of Rheumatology Researchers of [facility]) national data collection study. For further information please call Dr Temo Castaneda or Kim Ríos, RN, CCRC at [phone] [facility] RESEARCH OTHER*[id number] 08/19/2006 11/06/2009 Overview: Renamed Per Clinical Trials Billing Project. Pt is a participant in the CORRONA (Consortium of Rheumatology Researchers of [place]) national data collection study. For further information please call Dr Temo Castaneda or Kim Ríos, RN, CCRC at [phone] Arthritis, rheumatoid 07/01/20062016 Abnormal blood chemistry 05/02/2006 [...] State Silvia Mortensen [address] [place] [address] [address] Diana Mortensen [facility] [address] [place] [address] [address] 02/23/2024 8:00 AM EDT Office Visit Hematology/Oncology [place] [address] [address] Monica Ward, MD 400 [facility] [address] 02/23/2024 8:30 AM EDT Hem/Onc Treatment Hematology/Oncology Treatment, [place] 200 [place] [address] [place], Chair 4 Hem Onc Scenery [address] [place], [place] [address] 02/24/2024 1:00 PM EDT Hem/Onc Treatment Hematology/Oncology Treatment, [place] 200 [place] [address] [place], Chair 11 Hem Onc Scenery [address] [place], [place] [address] 02/25/2024 1:30 PM EDT Hem/Onc Treatment Hematology/Oncology Treatment, [place] 200 [facility], [place] [phone] [place], Chair 8 Hem Onc Scenery 200 [facility] [place], [place] [address] 07/14/2024 3:00 PM EST Office Visit Pulmonary Medicine, [facility] 132 [facility] [address] Eloy Pond MD [address] [place] [facility] [place] [address] 10/15/2024 8:40 AM EDT Office Visit Rheumatology [address] [place] [phone] Samy Russo MD [facility] [place] [address] Health Maintenance Due Date Last Done Comments [...] this encounter Medical Devices Implanted Type Area Wheel Press Operator Device Identifier Shelf Expiration Date Model / Serial / Lot Port Implant W8f Poly Cath - [id number] Implanted:Qty : 1 on 12/31/2023 by Sin Burroughs MD at OR [facility] Right: Chest CR BARD : PERIPHERAL VASCULAR [id number] 10/09/2024 [id number] / / [id number] documented as of this encounter Procedures Procedure Name Priority Date/Time Associated Diagnosis Comments URINALYSIS, REFLEX TO MICROSCOPIC Routine 02/02/2024 3:23 PM EDT Burning with urination documented in this encounter Results * (ABNORMAL) URINALYSIS, REFLEX TO MICROSCOPIC (02/02/2024 3:23 PM EDT) Color, Urine Yellow 02/02/2024 3:59 PM EDT [facility] 56 Clarity, Urine Clear 02/02/2024 3:59 PM EDT [facility] 56 Glucose, Urine Negative mg/dL 02/02/2024 3:59 PM EDT [facility] 56 Bilirubin, Urine Negative 02/02/20 3:59 PM EDT [facility] 56 Ketone, Urine Negative mg/dL 02/02/2024 3:59 PM EDT [facility] 56 Specific [facility], Urine 1.020 1.003 - 1.030 02/02/2024 3:59 PM EDT [facility] 56- Blood, Urine Negative 02/02/2024 3:59 PM EDT [facility] 56- pH, Urine 7.5 5.0 - 7.5 Units 02/02/2024 3:59 PM EDT [facility] 56- Protein, Urine Negative mg/dL 02/02/2024 3:59 PM EDT [facility] 56- Urobilinogen, Urine 0.2 mg/dL 02/02/2024 3:59 PM EDT [facility] 56- Nitrite, Urine Negative Negative 02/02/2024 3:59 PM EDT [facility] 56- Esterase, Urine Small(A) Negative 3:59 PM EDT [facility] 56- RBC, Urine 0-2 0 - 2 /HPF 02/02/2024 3:59 PM EDT [facility] 56- WBC, Urine 10-19(A) 0 - 2 /HPF 02/02/2024 3:59 PM EDT [facility] 56- Bacteria, Urine 26-50(A) 0 - 25 /HPF 02/02/20 3:59 PM EDT [facility] 56- Transitional Epithelial Cells, Urine 1-4(A) None /HPF 02/02/2024 3:59 PM EDT [facility] 56- Urine Urine specimen / Unknown Non-blood Collection / Unknown 02/02/2024 3:23 PM EDT 02/02/2024 3:35 PM EDT Monica Ward MD LAB URINE ORDERABLES [facility] 56- [address] [place] [address] documented in this encounter Visit [...] mL documented in this encounter Care Teams Helicopter Utility Aircrewman Relationship Specialty Start Date End Date Edel Clay MD [address] [place] [address] [place] [address] PCP - General Family Medicine 03/03/17 documented as of this encounter
--- OUTSIDE RECORDS SUMMARY | 2024-06-12 02:31 | External Medical Summary | Summary of Care ---
Author Name Unknown Organization [facility] Address [address] [place] [address] Phone [phone] Care Team Providers Care Pocket Setter Name Role Phone Edel Clay MD Primary [...] TECENTRIQ & BATSHEVA Ward, Monica Carmona MD [address] [place] [address] [place] [address] Anc Hem/Onc [address] [address] Referral ID Status Reason Start Date Expiration Date V isits Requested Visits Authorized [id number] Authorized 12/17/2023 06/13/2024 999 999 Encounter Details Date Type Department Care Team (Latest Contact Info) Description 02/02/2024 1:30 PM EDT Hem/Onc Treatment Hematology/Oncolog y Treatment, [address] [address] [place] Chair 7 Hem Onc [address] [place] [address] Encounter for antineoplastic chemotherapy*; Cancer, metastatic [...] rheumatoid factor ([facility]) INJECT 125 MG ( ONE SYRINGE ) [...] Thyroiditis 07/18/2008 06/01/2019 Overview: thyroglobulin antibody >3000 [id number][facility] 08/19/200608/10 Overview: Renamed Per Clinical Trials Billing Project. Pt is a participant in the CORRO (Consortium of Rheumatology Researchers of [place]) national data collection study. For further information please call Dr Temo Castaneda or Kim Ríos, RN, CCRC at [phone] [facility] RESEARCH OTHER*[id number] 08/19/2006 11/06/2009 Overview: Renamed Per Clinical Trials Billing Project. Pt is a participant in the CORRONA (Consortium of Rheumatology Researchers of [place]) national data collection study. For further information please call Dr Temo Castaneda or Kim Ríos, RN, CCRC at [phone] Arthritis, rheumatoid 07/01/20062016 Abnormal blood chemistry 05/02/2006 [...] State Silvia Mortensen [address] [place] [address] [phone] Diana Mortensen [facility] [address] [place] [address] [address] 02/23/2024 8:00 AM EDT Office Visit Hematology/Oncology State Silvia Sunshine [address] [phone] Monica Ward, MD [address] [facility] [address] 02/23/2024 8:30 AM EDT Hem/Onc Treatment Hematology/Oncology Treatment, [place] 200 [place] [phone] [place], Chair 4 Hem Onc Scenery [address] [place], [place] [address] 02/24/2024 1:00 PM EDT Hem/Onc Treatment Hematology/Oncology Treatment, [place] 200 [place] [phone] [place], Chair 11 Hem Onc Scenery [address] [place], [place] [address] 02/25/2024 1:30 PM EDT Hem/Onc Treatment Hematology/Oncology Treatment, [place] 200 [facility], [place] [phone] [place], Chair 8 Hem Onc Scenery 200 [facility] [place], [place] [address] 07/14/2024 3:00 PM EST Office Visit Pulmonary Medicine, [facility] [address] Eloy Pond MD [address] [facility] [place] [place] [address] 10/15/2024 8:40 AM EDT Office Visit Rheumatology [address] [place] [phone] Samy Russo MD [facility]0 [facility] [place] [address] Health Maintenance Due Date Last Done Comments [...] this encounter Medical Devices Implanted Type Area Devops Device Identifier Shelf Expiration Date Model / Serial / Lot Port Implant W8f Poly Cath - [id number] Implanted:Qty : 1 on 12/31/2023 by Sin Burroughs MD at OR [facility] Right: Chest CR BARD : PERIPHERAL VASCULAR [id number] 10/09/2024 [id number] / / [id number] documented as of this encounter Procedures Procedure Name Priority Date/Time Associated Diagnosis Comments URINALYSIS, REFLEX TO MICROSCOPIC Routine 02/02/2024 3:23 PM EDT Burning with urination documented in this encounter Results * (ABNORMAL) URINALYSIS, REFLEX TO MICROSCOPIC (02/02/2024 3:23 PM EDT) Color, Urine Yellow 02/02/2024 3:59 PM EDT [facility] 56 Clarity, Urine Clear 02/02/2024 3:59 PM EDT [facility] 56 Glucose, Urine Negative mg/dL 02/02/2024 3:59 PM EDT [facility] 56 Bilirubin, Urine Negative 02/02/20 3:59 PM EDT [facility] 56 Ketone, Urine Negative mg/dL 02/02/2024 3:59 PM EDT [facility] 56 Specific [place], Urine 1.020 1.003 - 1.030 02/02/2024 3:59 PM EDT [facility] 56- Blood, Urine Negative 02/02/2024 3:59 PM EDT [facility] 56- pH, Urine 7.5 5.0 - 7.5 Units 02/02/2024 3:59 PM EDT [facility] 56- Protein, Urine Negative mg/dL 02/02/2024 3:59 PM EDT [facility] 56- Urobilinogen, Urine 0.2 mg/dL 02/02/2024 3:59 PM EDT [facility] 56- Nitrite, Urine Negative Negative 02/02/2024 3:59 PM EDT [facility] 56- Esterase, Urine Small(A) Negative 3:59 PM EDT [facility] 56- RBC, Urine 0-2 0 - 2 /HPF 02/02/2024 3:59 PM EDT [facility] 56- WBC, Urine 10-19(A) 0 - 2 /HPF 02/02/2024 3:59 PM EDT [facility] 56- Bacteria, Urine 26-50(A) 0 - 25 /HPF 02/02/20 3:59 PM EDT [facility] 56- Transitional Epithelial Cells, Urine 1-4(A) None /HPF 02/02/2024 3:59 PM EDT [facility] 56- Urine Urine specimen / Unknown Non-blood Collection / Unknown 02/02/2024 3:23 PM EDT 02/02/2024 3:35 PM EDT Monica Ward MD LAB URINE ORDERABLES [facility] 56- [address] [place] [address] documented in this encounter Visit [...] mL documented in this encounter Care Teams Pocket Setter Relationship Specialty Start Date End Date Edel Clay MD [address] [place] [address] [place] [address] PCP - General Family Medicine 03/03/17 documented as of this encounter
--- OUTSIDE RECORDS SUMMARY | 2024-06-12 02:32 | External Medical Summary | Summary of Care ---
Author Name Unknown Organization [facility] Address [address] [place] [address] Phone [phone] Care Team Providers Care Blanker Press Operator Name Role Phone Edel Clay MD [...] PENDING TECENTRIQ & FULPHILA Monica Ward MD [address] [place] [address] [place] [address] Anc Hem/Onc Scenery [place] [address] [place] [phone] Referral ID Status Reason Start Date Expiration Date V isits Requested Visits Authorized [id number] Authorized 12/17/2023 06/13/2024 999 999 Encounter Details Date Type Department Care Team (Latest Contact Info) Description 02/03/2024 1:00 PM EDT Hem/Onc Treatment Hematology/Oncolog y Treatment, [address] [address] [place], Chair 9 Hem Onc Scenery [address] [place] [address] Encounter for antineoplastic chemotherapy*; Cancer, metastatic [...] as of this encounter (statuses as of 02/04/2024) Medications Medication Sig Dispensed Refills Start Date [...] as of this encounter (statuses as of 02/04/2024) Active Problems Problem Noted Date Diagnosed Date [...] as of this encounter (statuses as of 02/04/2024) Resolved Problems Problem Noted Date Diagnosed Date [...] Thyroiditis 07/18/2008 06/01/2019 Overview: thyroglobulin antibody >3000 [id number] 08/19/200608/10 Overview: Renamed Per Clinical Trials Billing Project. Pt is a participant in the CORRO (Consortium of Rheumatology Researchers of [place]) national data collection study. For further information please call Dr Temo Castaneda or Kim Ríos, RN, CCRC at [phone] [facility] RESEARCH OTHER*[id number] 08/19/2006 11/06/2009 Overview: Renamed Per Clinical Trials Billing Project. Pt is a participant in the [employer]RONA (Consortium of Rheumatology Researchers of [place]) national data collection study. For further information please call Dr Temo Castaneda or Kim Ríos, RN, CCRC at [phone] Arthritis, rheumatoid 07/01/20062016 Abnormal blood chemistry 05/02/2006 Overview: positive rheumatoid factor. Metabolic syndrome 04/29/2006 0 Overview: insulin level 16 Mixed dyslipidemia 02/06/2006 9 Overview: Per Lipid Taxonomy. chol 192, hdl 26, trig 403 Allergic rhinitis due to pollen 01/30/2006 03/03/2017 Obesity, BMI not known 08/07 Overview: Per Obesity Taxonomy Denture irritation 0 documented as of this encounter (statuses as of 02/04/2024) Immunizations Name Administration Dates Next Due COVID-19 mRNA, LNP-s, No Pre serve, 2-Dose Series (Moderna) 12/27/2020,06/29/2020,06/01/2020 COVID-19, mRNA, LNP-s, PF, B ooster, 100mcg/0.5mg (Moderna) 06/09/2021 Covid-19, Mrna, Lnp-s, Pf, B ivalent, 50 Mcg, IM, 12 yrs and above (Moderna) 01/18/2022 PPD 03/30/2010 Pneumococcal Conjugate Vacc, 13 Valent (Prevnar) 05/19/2020 Pneumococcal Polysaccharide PPV23 (Pneumovax) 10/29/2011,10/25/2011,08/19/2006 Seasonal Influenza, PF, 6 M & above, IM , (FluLaval or Fluzone) 02/12/2022,02/09/2021,02/08/2019 Seasonal Influenza, Quadriva lent, No Preserve, IM 03/02/2020,02/09/2019,02/09/2018,02/19,02/27/2015 Seasonal Influenza, Trivalen t, (IIV3), with Preserv, (Fluzone) 02/10/2017,02/17/2014,02/08/2013,02/09,02/18/2011,03/01/2010,02/28/2009 ,03/09/2008,03/27/2007 TD, Preservative Free 08/18/2018 TDAP (age 10 [...] Care Team (Late st Contact Info) Description 02/05/2024 4:00 PM EDT Immunization/Injecti on Hematology/Oncology Treatment, [address] [place] [address] 02/17/2024 10:45 AM EDT Imaging Radiology [address], [address] [place] [address] 02/23/2024 7:30 AM EDT Laboratory Laboratory [facility] [place] [address] [place] [address] [place] Lab [address] [facility] [place] [address] 02/23/2024 8:00 AM EDT Office Visit Hematology/Oncology [facility] [place] [address] [place] [phone] Monica Ward MD [address] [place], [place] [address] [address] 02/23/2024 8:30 AM EDT Hem/Onc Treatment Hematology/Oncology Treatment, [address] [place] [address] [place], Chair 4 Hem Onc Scenery [address] [place] [address] 02/24/2024 1:00 PM EDT Hem/Onc Treatment Hematology/Oncology Treatment, [address] [place] [phone] aBlbina, Chair 11 Hem Onc Scenery [address] [place] [address] 02/25/2024 1:15 PM EDT Hem/Onc Treatment Hematology/Oncology Treatment, [address], [place] [phone] [place], Chair 5 Hem Onc Scenery [address] [place], [place] [address] 07/14/2024 3:00 PM EST Office Visit Pulmonary Medicine, [facility] 132 [facility] [place] [phone] Eloy Pond MD [address] [facility] [place] [address] 10/15/2024 8:40 AM EDT Office Visit Rheumatology [address] [place] [phone] Samy Russo MD [address] [place] [address] Health Maintenance Due Date Last Done Comments [...] this encounter Medical Devices Implanted Type Area Eyeglass Fitter Device Identifier Shelf Expiration Date Model / Serial / Lot Port Implant W8f Poly Cath - [id number] Implanted:Qty : 1 on 12/31/2023 by Sin Burroughs MD at OR [facility] Right: Chest CR BARD : PERIPHERAL VASCULAR [id number] 10/09/2024 [id number] / / [id number] documented as of this encounter Visit Diagnoses [...] on Fri02/03/24 at 1338, Until Fri02/03/24 at 203, For 24 hours, Do not flush if lock, PICC, or central line not in place; IV infusing or unable to flush. Given 02/03/2024 3:07 PM EDT 10 mL documented in this encounter Care Teams Blanker Press Operator Relationship Specialty Start Date End Date Edel Clay MD [address] [place] [address] [place] [address] PCP - General Family Medicine 03/03/17 documented as of this encounter
--- OUTSIDE RECORDS SUMMARY | 2024-06-12 02:32 | External Medical Summary | Summary of Care ---
Author Name Unknown Organization [facility] Address [address] [place] [address] Phone [phone] Care Team Providers Care Speaking Unit Assembler Name Role Phone Edel Clay MD [...] PENDING TECENTRIQ & FULPHILA Monica Ward MD [address] [place] [address] [place] [address] Anc Hem/Onc [facility] [address] [address] Referral ID Status Reason Start Date Expiration Date V isits Requested Visits Authorized [id number] Authorized 12/17/2023 06/13/2024 999 999 Encounter Details Date Type Department Care Team (Latest Contact Info) Description 02/04/2024 1:30 PM EDT Hem/Onc Treatment Hematology/Oncolog y Treatment, [address] [address] Encounter for antineoplastic chemotherapy*; Cancer, [...] Thyroiditis 07/18/2008 06/01/2019 Overview: thyroglobulin antibody >3000 [id number] [facility]OSHO HOSPITALSHARMAINE 08/19/200608/10 Overview: Renamed Per Clinical Trials Billing Project. Pt is a participant in the CORRO (Consortium of Rheumatology Researchers of [place]) national data collection study. For further information please call Dr Temo Castaneda or Kim Ríos, RN, CCRC at [phone] [facility] RESEARCH OTHER*[id number] 08/19/2006 11/06/2009 Overview: Renamed Per Clinical Trials Billing Project. Pt is a participant in the CORRONA (Consortium of Rheumatology Researchers of [place]) national data collection study. For further information please call Dr Temo Castaneda or Kim Ríos, RN, CCRC at [phone] Arthritis, rheumatoid 07/01/20062016 Abnormal blood chemistry 05/02/2006 [...] 4:00 PM EDT Immunization/Injecti on Hematology/Oncology Treatment, [address] [place] [phone] 02/17/2024 10:45 AM EDT Imaging Radiology [address], [place] 132 [facility] [address] 02/23/2024 7:30 AM EDT Laboratory Laboratory [address] [place] [phone] [place] Lab [address] [facility] [place] [address] 02/23/2024 8:00 AM EDT Office Visit Hematology/Oncology [address] [place] [phone] Monica Ward MD [address] [place], [place] [address] [phone] 02/23/2024 8:30 AM EDT Hem/Onc Treatment Hematology/Oncology Treatment, [address] [place] [phone] [place], Chair 4 Hem Onc [address] [place] [address] 02/24/2024 1:00 PM EDT Hem/Onc Treatment Hematology/Oncology Treatment, [address] [phone] [place], Chair 11 Hem Onc [address] [place] [address] 02/25/2024 1:15 PM EDT Hem/Onc Treatment Hematology/Oncology Treatment, [place] [address] [place] [address] [place], Chair 5 Hem Onc Scenery [address] [place] [address] 07/14/2024 3:00 PM EST Office Visit Pulmonary Medicine, [facility] [address] [place] [address] Eloy Pond MD [address] [facility] [place] [address] 10/15/2024 8:40 AM EDT Office Visit Rheumatology [address] [place] [phone] Samy Russo MD [address] [employer] [place] [address] Health Maintenance Due Date Last Done Comments [...] this encounter Medical Devices Implanted Type Area Paradi Tender Device Identifier Shelf Expiration Date Model / Serial / Lot Port Implant W8f Poly Cath - [id number] Implanted:Qty : 1 on 12/31/2023 by Sin Burroughs MD at [facility] Right: Chest CR BARD : PERIPHERAL VASCULAR [id number] 10/09/2024 [id number] / / [id number] documented as of this encounter Visit Diagnoses [...] ONCE PRN Other, Hypersensitivity Reaction, Starting on Fri02/04/24 at 1340, Until Lizbeth 02/05/24 at 1339, For 24 hours diphenhydrAMINE (Benadryl) inj 50 mg 50 mg, IV Push, ONCE PRN Other, Hypersensitivity Reaction, Starting on Fri02/04/24 at 1504, Until Lizbeth 02/05/24 at 1503, For 24 hours EPINEPHrine 1 MG/ML inj 0.3 mg 0.3 mg, Intramuscular, ONCE PRN Other, Hypersensitivity Reaction or Anaphylaxis, Starting on Fri02/04/24 at 1340, Until Lizbeth 02/05/24 at 1339, For 24 hours EPINEPHrine 1 MG/ML inj 0.3 mg 0.3 mg, Intramuscular, ONCE PRN Other, Hypersensitivity Reaction or Anaphylaxis, Starting on Fri02/04/24 at 1504, Until Lizbeth 02/05/24 at 1503, For 24 hours hEParin 100 UNIT/ML Lock Flush inj 500 Units 500 Units (5 mL), IV Lock, PRN Other, IV Flush, Starting on Fri02/04/24 at 1340, Until Lizbeth 02/05/24 at 1339, For 24 hours, Do not flush if lock, PICC, or central line not in place; IV infusing or unable to flush. Given 02/04/2024 3:41 PM EDT 500 Units Hydrocortisone Sod Suc (PF) (Solu-Cortef) inj 100 mg 100 mg, IV Push, ONCE PRN Other, Hypersensitivity Reaction, Starting on Fri02/04/24 at 1340, Until Lizbeth 02/05/24 at 1339, For 24 hours Hydrocortisone Sod Suc (PF) (Solu-Cortef) inj 100 mg 100 mg, IV Push, ONCE PRN Other, Hypersensitivity Reaction, Starting on Fri02/04/24 at 1504, Until Lizbeth 02/05/24 at 1503, For 24 hours LORAzepam (Ativan) tab 0.5 mg 0.5 mg, Oral, ONCE PRN Anxiety, Nausea, Starting on Fri02/04/24 at 1445, Until Discontinued NSS infusion Intravenous, at 50 mL/hr, PRN, Starting on Fri02/04/24 at 1445, Until Discontinued, Maintenance line Start Infusion 02/04/2024 2:02 PM EDT 50 mL/hr oxygen GAS Inhalation, OXYGEN, First dose on Fri02/04/24 at 1600, Until Discontinued, Device/Managed by: Low [...] oxygen GAS Inhalation, OXYGEN, First dose on Fri02/04/24 at 1600, Until Discontinued, Device/Managed by: Low [...] Flush, Starting on Fri02/04/24 at 1340, Until Lizbeth 02/05/24 at 1339, For 24 hours, Do not flush if lock, PICC, or central line not in place; IV infusing or unable to flush. Given 02/04/2024 3:41 PM EDT 10 mL Inactive Administered Medications [...] 2:04 PM EDT 190 mg 519.5 mL/hr ondansetron (Zofran) tab 8 mg 8 mg, Oral, ONCE, On Fri02/04/24 at 1445, For 1 dose, Give 30 minutes prior to chemotherapy. Given 02/04/2024 1:48 PM EDT 8 mg Zoledronic Acid (Zometa) 4 mg in 100 mL PREMIX ivpb 4 mg, IV Piggyback, ONCE, 1 dose, On Fri02/04/24 at 1615 Start Infusion 02/04/2024 3:23 PM EDT 4 mg 400 mL/hr documented in this encounter Care Teams Speaking Unit Assembler Relationship Specialty Start Date End Date Edel Clay MD [address] [place] [address] [place] [address] PCP - General Family Medicine 03/03/17 documented as of this encounter
--- OUTSIDE RECORDS SUMMARY | 2024-06-12 02:32 | External Medical Summary | Summary of Care ---
Author Name Unknown Organization [facility] Address [address] [place] [address] Phone [phone] Care Team Providers Care Registered Nurse Midwife Name Role Phone Edel Clay MD Primary [...] PENDING TECENTRIQ & FULPHILA Monica Ward MD [address] [place], [place] [address] [place] [address] Anc Hem/Onc [address] [phone] Referral ID Status Reason Start Date Expiration Date V isits Requested Visits Authorized [id number] Authorized 12/17/2023 06/13/2024 999 999 Encounter Details Date Type Department Care Team (Latest Contact Info) Description 02/05/2024 4:00 PM EDT Immunization/ Injection Hematology/Oncology Treatment, [address] [address] Encounter for antineoplastic chemotherapy*; Cancer, [...] as of this encounter (statuses as of 02/05/2024) Medications Medication Sig Dispensed Refills Start Date [...] as of this encounter (statuses as of 02/05/2024) Active Problems Problem Noted Date Diagnosed Date [...] as of this encounter (statuses as of 02/05/2024) Resolved Problems Problem Noted Date Diagnosed Date [...] Thyroiditis 07/18/2008 06/01/2019 Overview: thyroglobulin antibody >3000 [id number] MISSOURI STATE HOSPITALSHARMAINE 08/19/200608/10 Overview: Renamed Per Clinical Trials Billing Project. Pt is a participant in the [facility] (Consortium of Rheumatology Researchers of [place]) national data collection study. For further information please call Dr Temo Castaneda or Kim Ríos, RN, CCRC at [phone] [facility] RESEARCH OTHER*[id number] 08/19/2006 11/06/2009 Overview: Renamed Per Clinical Trials Billing Project. Pt is a participant in the [facility] (Consortium of Rheumatology Researchers of [place]) national data collection study. For further information please call Dr Temo Castaneda or Kim Ríos, RN, CCRC at [phone] Arthritis, rheumatoid 07/01/20062016 Abnormal blood chemistry 05/02/2006 Overview: positive rheumatoid factor. Metabolic syndrome 04/29/2006 0 Overview: insulin level 16 Mixed dyslipidemia 02/06/2006 9 Overview: Per Lipid Taxonomy. chol 192, hdl 26, trig 403 Allergic rhinitis due to pollen 01/30/2006 03/03/2017 Obesity, BMI not known 08/07 Overview: Per Obesity Taxonomy Denture irritation 0 documented as of this encounter (statuses as of 02/05/2024) Immunizations Name Administration Dates Next Due COVID-19 [...] Care Team (Late st Contact Info) Description 02/17/2024 10:45 AM EDT Imaging Radiology [facility] 132 [facility] [place] [address] 02/23/2024 7:30 AM EDT Laboratory [facility] [address] [place] [phone] [place] [facility] [address] [place] [address] 02/23/2024 8:00 AM EDT Office Visit Hematology/Oncology [facility] [place] 200 [facility] [place] [phone] Monica Ward MD 400 [facility] [place] [phone] 02/23/2024 8:30 AM EDT Hem/Onc Treatment Hematology/Oncology Treatment, [place] 200 [facility], [place] [phone] [place], Chair 4 Hem Onc Scenery 200 [place] [address] 02/24/2024 1:00 PM EDT Hem/Onc Treatment Hematology/Oncology Treatment, [address], [place] [phone] [place], Chair 11 Hem Onc Scenery 200 [facility] [place], [place] [address] 02/25/2024 1:15 PM EDT Hem/Onc Treatment Hematology/Oncology Treatment, [place] 200 [facility], [place] [phone] [place], Chair 5 Hem Onc Scenery 200 [facility] [place], [place] [address] 07/14/2024 3:00 PM EST Office Visit Pulmonary Medicine, [facility] 132 [facility] [place] [address] Eloy Pond MD [address] [facility] [id number] 10/15/2024 8:40 AM EDT Office Visit Rheumatology [address] [place] [phone] Samy Russo MD [address] [facility] [place] [address] Health Maintenance Due Date Last Done Comments [...] this encounter Medical Devices Implanted Type Area Intelligence Director Device Identifier Shelf Expiration Date Model / Serial / Lot Port Implant W8f Poly Cath - [id number] Implanted:Qty : 1 on 12/31/2023 by Sin Burroughs MD at OR [facility] Right: Chest CR BARD : PERIPHERAL VASCULAR [id number] 10/09/2024 [id number] / / [id number] documented as of this encounter Visit Diagnoses [...] Upper documented in this encounter Care Teams Registered Nurse Midwife Relationship Specialty Start Date End Date Edel Clay MD [address] [place] [address] [place] [phone] PCP - General Family Medicine 03/03/17 documented as of this encounter
--- OUTSIDE RECORDS SUMMARY | 2024-06-12 02:32 | External Medical Summary | Summary of Care ---
Author Name Unknown Organization [facility] Address [address] [facility] [place] [address] Phone [phone] Care Team Providers Care Experimental Machinist Name Role Phone Edel Clay MD Primary Care Provide r Reason for Referral * Precert (Within 24 hrs (call dept; emergent)) - Authorized Specialty Diagnoses / Procedures Referred By Contac t Referred To Contact Radiology Diagnoses Metastatic adenocarcinoma to liver (HCC) Procedures PET CT SKULL BASE TO MID-THIGH FDG Monica Ward MD [address] [address] [phone] Referral ID Status Reason Start Date Expiration Date V isits Requested Visits Authorized [id number] Authorized 02/03/2024 03/11/2024 999 999 Reason for Visit * Reason Comments Chemotherapy Chemo/recheck Encounter Details Date Type Department Care Team (Late st Contact Info) Description 02/02/2024 1:00 PM EDT Office Visit Hematology/Oncology [facility] Mortensen [place] [facility] [phone] Monica Ward MD [address] [phone] Metastatic adenocarcinoma to liver (HCC)*; Burning with urination Allergies Active Allergy Reactions Criticality Noted Date Comments Clindamycin Hives 08/26/2014 Codeine 10/25/2011 "Stupor", drowsy Other Allergy (See Comments) 024 Perfumes, hairspray, candles, etc. Sinus infections, headaches, very sensitive. Penicillins 01/30/2006 Hives ans swelling Sulfa Antibiotics 06/29/2010 Sick to her stomach documented as of this encounter (statuses as of 02/19/2024) Medications Medication Sig Dispensed Refills Start Date [...] as of this encounter (statuses as of 02/19/2024) Active Problems Problem Noted Date Diagnosed Date [...] as of this encounter (statuses as of 02/19/2024) Resolved Problems Problem Noted Date Diagnosed Date [...] Thyroiditis 07/18/2008 06/01/2019 Overview: thyroglobulin antibody >3000 [id number] 08/19/200608/10 Overview: Renamed Per Clinical Trials Billing Project. Pt is a participant in the CORRO (Consortium of Rheumatology Researchers of [place]) national data collection study. For further information please call Dr Temo Castaneda or Kim Ríos, RN, CCRC at [phone] [facility] RESEARCH OTHER*[id number] 08/19/2006 11/06/2009 Overview: Renamed Per Clinical Trials Billing Project. Pt is a participant in the CORRO (Consortium of Rheumatology Researchers of [place]) national data collection study. For further information please call Dr Temo Castaneda or Kim Ríos, RN, CCRC at [phone] Arthritis, rheumatoid 07/01/20062016 Abnormal blood chemistry 05/02/2006 Overview: positive rheumatoid factor. Metabolic syndrome 04/29/2006 0 Overview: insulin level 16 Mixed dyslipidemia 02/06/2006 9 Overview: Per Lipid Taxonomy. chol 192, hdl 26, trig 403 Allergic rhinitis due to pollen 01/30/2006 03/03/2017 Obesity, BMI not known 08/07 Overview: Per Obesity Taxonomy Denture irritation 0 documented as of this encounter (statuses as of 02/19/2024) Immunizations Name Administration Dates Next Due COVID-19 [...] Sign Reading Time Taken Comments Blood Pressure 143/82 02/02/2024 1:15 PM EDT Pulse 97 02/02/2024 1:15 PM EDT Temperature 36.5 C (97.7 F) 02/02/2024 1:15 PM ED T Respiratory Rate - - Oxygen Saturation 95% 02/02/2024 1:15 PM EDT Inhaled Oxygen Concentration - - Weight 85.2 kg (187 lb 12.8 oz) 02/02/2024 1:15 PM EDT Height - - Body Mass Index 33.07 01/15/2024 3:20 PM EDT documented in this encounter Patient Instructions * Patient Instructions* Monica Ward MD - 02/02/2024 1:57 PM EDT Continue chemo- cycle #3 to start today UA recheck today PET scan around 02/19/2024 See me back on 02/23/2024 Bring all your medications wit you that day for me to review. documented in this encounter Progress Notes * Monica Ward MD - 02/19/2024 6:01 AM EDT Images from the original note were not included. CHIEF COMPLAINT: Alfredo Torrez is a 58 year old female patient here today for f/u visit HEMATOLOGY/ONCOLOGY DIAGNOSIS: Newly diagnosed small-cell lung cancer 12/04/2023 Positive PET scan with multiple light ups Patient aware regarding diagnosis . HISTORY OF PRESENT ILLNESS: Alfredo Torrez is [...] axis. Multiple liver lesions, concerning for metastases, sales representative meats lesion in the posterior right hepatic lobe measures 3.7 x 2.6 cm. 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 Multiple liver lesions, concerning for metastases, sales representative meats lesion in the posterior right hepatic lobe [...] iliac bones, right acetabulum and L4 vertebra. Pathology: Final Diagnosis A. Lung, Bronchial wash: [...] approximately 90%. 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 No Living Will or Advance Directive for Health Care as noted on the problem list. [employer] is a way you can talk to your provider on line through e-mail. Would you like to sign up? I can activate it for you? ALREADY ACTIVE Filed Vitals: 02/02/24 1315 BP: 143/82 Pulse: 97 Temp: 36.5 C (97.7 F) TempSrc: Tympanic SpO2: 95% Weight: 85.2 kg (187 lb 12.8 oz) Patient was instructed to [...] Description 02/23/2024 7:30 AM EDT Laboratory Laboratory Dominic Mortensen [place] [address] [place] [address] [phone] Diana Mortensen [facility] [place] [address] [address] 02/23/2024 8:00 AM EDT Office Visit Hematology/Oncology [facility] [address] [place] [address] [phone] Monica Ward MD [address] [place] [address] [place] [phone] 02/23/2024 8:30 AM EDT Hem/Onc Treatment Hematology/Oncology Treatment, [place] 200 [place] [phone] [place], Chair 4 Hem Onc Scenery 200 [facility] [place] [address] 02/24/2024 1:00 PM EDT Hem/Onc Treatment Hematology/Oncology Treatment, [place] 200 [facility], [place] [phone] [place], Chair 11 Hem Onc Scenery 200 [facility] [place] [address] 02/25/2024 1:30 PM EDT Hem/Onc Treatment Hematology/Oncology Treatment, [place] 200 [facility], [place] [phone] [place], Chair 8 Hem Onc Scenery 200 [facility] [place] [address] 07/14/2024 3:00 PM EST Office Visit Pulmonary Medicine, [facility] [address] [facility] [place] [address] El[facility]ond MD [address] [facility] [address] 10/15/2024 8:40 AM EDT Office Visit Rheumatology [address] [place] [phone] Samy Russo MD [address] [facility] [place] [address] Health Maintenance Due Date Last Done Comments [...] this encounter Medical Devices Implanted Type Area Speech/Language Therapist Device Identifier Shelf Expiration Date Model / Serial / Lot Port Implant W8f Poly Cath - [id number] Implanted:Qty : 1 on 12/31/2023 by Sin Burroughs MD at OR [facility] Right: Chest CR BARD : PERIPHERAL VASCULAR [id number] 10/09/2024 [id number] / / [id number] documented as of this encounter Results * PET CT SKULL BASE TO MID-THIGH FDG (02/17/2024 12:14 PM EDT) Anatomical Region Laterality Modality Body, Chest, Abdomen, Pelvis Pos itron Emission Tomography (PET) 02/17/2024 1:50 PM EDT Impressions 02/17/2024 1:47 PM EDT IMPRESSION 1. Decreased size and FDG activity in the right perihilar lung mass as above. 2. Single subtle focus remaining in the posterior margin of the liver with resolution of other metastatic hepatic lesions as above. 3. Stable appearance of previously noted osseous metastatic foci. 4. Other benign CT changes as above. Narrative 02/17/2024 1:47 PM EDT EXAM PET CT SKULL BASE TO MID-THIGH FDG - 02/17/2024 12:14 pm HISTORY Treatment response monitoring - extensive stage small cell lung cancer, on chemo COMPARISON December 08, 2023 PET-CT. November 20, [address] Chest and rib series dated 06/12/2022. TECHNIQUE PET imaging was performed from the skull base to the mid thighs 67 minutes following the intravenous administration of 11.74 mCi of F-18 fluorodeoxyglucose (FDG). Low-dose CT was performed for anatomic localization and attenuation correction purposes and fused with the PET images on a separate workstation. The patient's glucose level at the time of radiotracer injection was 109 mg/dL. This is a follow up PET/CT for the above indication. FINDINGS PET SCAN: Maximum blood pool SUV: 3.23 Maximum hepatic SUV: 3.78 Head/Neck: No metabolically active cervical lymphadenopathy. Physiologic activity is present within the brain. As on the 12/08/2023 PET-CT, markedly hypermetabolic, but symmetric tonsillar pillars which appear prominent in size. Direct visualization is suggested. Chest: Significantly decreased size and FDG avidity of the right hilar mass, currently measuring approximally 18.8 x 44.1 mm axial (49.8 x 67.7 mm axial on 11/20/2023 CT) and 8.92 SUV max. Central necrotic component of the more posterior aspect of the mass is again noted. No metabolically active axillary lymphadenopathy. Abdomen/Pelvis: Subtle area of increased metabolic activity (5.05 SUV max) at the posterosuperior subcapsular liver, segment 7 with multiple other hepatic hypermetabolic lesions resolved. Physiologic activity is otherwise present within the gastrointestinal and genitourinary systems. Musculoskeletal: Diffusely increased FDG activity throughout the skeletal structures which may be secondary to the 926 injection of Pegfilgrastim. Underlying metastatic disease is not completely excluded. Lucent changes in the pelvis from the previously demonstrated hypermetabolic osseous metastasis are appreciated and are unchanged. ADDITIONAL CT FINDINGS: Lines/Devices: Right jugular medical port terminating in the right atrium. Head/Neck: Sialoliths. Maxillary and mandibular dentures. Chest: Mild calcific coronary artery disease. Abdomen/Pelvis: Cholecystectomy clips. Scattered calcific vascular disease. Musculoskeletal/Other: Healing periosteal reaction at the right lateral 9th rib. Subtle sclerotic focus at the anterolateral aspect of the right 6th rib. Stable treated pelvic lucent bone lesions. Procedure Note Dayan Daniel, DO - 02/17/[address] SKULL BASE TO MID-THIGH FDG - 02/17/2024 12:14 pm HISTORY Treatment response monitoring - extensive stage small cell lung cancer, onchemo COMPARISON December 08, 2023 PET-CT. November 20, [address] Chest and rib series dated06/12/2022. TECHNIQUE PET imaging was performed from the skull base to the mid thighs 67 minutesfollowing the intravenous administration of 11.74 mCi of F-18fluorodeoxyglucose (FDG). Low-dose CT was performed for anatomiclocalization and attenuation correction purposes and fused with the PETimages on a separate workstation. The patient's glucose level at the timeof radiotracer injection was 109 mg/dL. This is a follow up PET/CT forthe above indication. FINDINGS PET SCAN: Maximum blood pool SUV: 3.23 Maximum hepatic SUV: 3.78 Head/Neck: No metabolically active cervical lymphadenopathy. Physiologic activity is present within the brain. As on the 12/08/2023ET-CT, markedly hypermetabolic, but symmetric tonsillar pillars whichappear prominent in size. Direct visualization is suggested. Chest: Significantly decreased size and FDG avidity of the right hilar mass,currently measuring approximally 18.8 x 44.1 mm axial (49.8 x 67.7 mmaxial on 11/20/2023 CT) and 8.92 SUV max. Central necrotic component ofthe more posterior aspect of the mass is again noted. No metabolically active axillary lymphadenopathy. Abdomen/Pelvis: Subtle area of increased metabolic activity (5.05 SUV max) at theposterosuperior subcapsular liver, segment 7 with multiple other hepatichypermetabolic lesions resolved. Physiologic activity is otherwise present within the gastrointestinal andgenitourinary systems. Musculoskeletal: Diffusely increased FDG activity throughout the skeletal structures whichmay be secondary to the 926 injection of Pegfilgrastim. Underlyingmetastatic disease is not completely excluded. Lucent changes in thepelvis from the previously demonstrated hypermetabolic osseous metastasisare appreciated and are unchanged. ADDITIONAL CT FINDINGS: Lines/Devices: Right jugular medical port terminating in the rightatrium. Head/Neck: Sialoliths. Maxillary and mandibular dentures. Chest: Mild calcific coronary artery disease. Abdomen/Pelvis: Cholecystectomy clips. Scattered calcific vasculardisease. Musculoskeletal/Other: Healing periosteal reaction at the right [id number] rib. Subtle sclerotic focus at the anterolateral aspect of the [id number] rib. Stable treated pelvic lucent bone lesions. IMPRESSION IMPRESSION 1. Decreased size and FDG activity in the right perihilar lung mass asabove. 2. Single subtle focus remaining in the posterior margin of the liver withresolution of other metastatic hepatic lesions as above. 3. Stable appearance of previously noted osseous metastatic foci. 4. Other benign CT changes as above. Monica Ward MD RAD NUCLEAR MED * (ABNORMAL) URINALYSIS, REFLEX TO MICROSCOPIC (02/02/2024 3:23 PM EDT) Color, Urine Yellow 02/02/2024 3:59 PM EDT LAB[facility]ATORY [facility] 56-02 Clarity, Urine Clear 02/02/2024 3:59 PM EDT [facility] 56-02 Glucose, Urine Negative mg/dL 02/02/2024 3:59 PM EDT [facility] 56-02 Bilirubin, Urine Negative 02/02/20 3:59 PM EDT [facility] 56-02 Ketone, Urine Negative mg/dL 02/02/2024 3:59 PM EDT [facility] 56-02 Specific Sears, Urine 1.020 1.003 - 1.030 02/02/2024 3:59 PM EDT [facility] 56 Blood, Urine Negative 02/02/2024 3:59 PM EDT [facility] 56 pH, Urine 7.5 5.0 - 7.5 Units 02/02/2024 3:59 PM EDT [place] [address] Protein, Urine Negative mg/dL 02/02/2024 3:59 PM EDT [facility] 56 Urobilinogen, Urine 0.2 mg/dL 02/02/2024 3:59 PM EDT [place] [address] Nitrite, Urine Negative Negative 02/02/2024 3:59 PM EDT [facility] 56 Esterase, Urine Small(A) Negative 3:59 PM EDT [place] [address] RBC, Urine 0-2 0 - 2 /HPF 02/02/2024 3:59 PM EDT [place] [address] WBC, Urine 10-19(A) 0 - 2 /HPF 02/02/2024 3:59 PM EDT [place] [address] Bacteria, Urine 26-50(A) 0 - 25 /HPF 02/02/20 24 3:59 PM EDT [place] [address] Transitional Epithelial Cells, Urine 1-4(A) None /HPF 02/02/2024 3:59 PM EDT [place] [address] Urine Urine specimen / Unknown Non-blood Collection / Unknown 02/02/2024 3:23 PM EDT 02/02/2024 3:35 PM EDT Monica Ward MD LAB URINE ORDERABLES [facility] [address] [place] [address] documented in this encounter Visit Diagnoses Diagnosis Metastatic adenocarcinoma to liver (HCC)- Primary Secondary malignant neoplasm of liver Burning with urination Dysuria Metastatic adenocarcinoma to liver (HCC) Secondary malignant neoplasm of liver documented in this encounter Care Teams Experimental Machinist Relationship Specialty Start Date End Date Edel Clay MD [address] [place] [address] [place] [phone] PCP - General Family Medicine 03/03/17 documented as of this encounter
--- OUTSIDE RECORDS SUMMARY | 2024-06-12 02:32 | External Medical Summary | Summary of Care ---
Author Name Unknown Organization [facility] Address [address] [place] [address] Phone [phone] Care Team Providers Care Cds Sales Advisor Name Role Phone Edel Clay MD [...] PENDING TECENTRIQ & FULPHILA Monica Ward MD [address] [place] [address] [place] [phone] Anc Hem[facility]Onc [facility] [address] [address] Referral ID Status Reason Start Date Expiration Date V isits Requested Visits Authorized [id number] Authorized 12/17/2023 06/13/2024 999 999 Encounter Details Date Type Department Care Team (Latest Contact Info) Description 02/04/2024 1:30 PM EDT Hem/Onc Treatment Hematology/Oncolog y Treatment, [address] [phone] Encounter for antineoplastic chemotherapy*; Cancer, [...] Thyroiditis 07/18/2008 06/01/2019 Overview: thyroglobulin antibody >3000 [id number] 08/19/200608/10 Overview: Renamed Per Clinical Trials Billing Project. Pt is a participant in the CORRO (Consortium of Rheumatology Researchers of [place]) national data collection study. For further information please call Dr Temo Castaneda or Kim Ríos, RN, CCRC at [phone] [facility] RESEARCH OTHER*[id number] 08/19/2006 11/06/2009 Overview: Renamed Per Clinical Trials Billing Project. Pt is a participant in the CORRONA (Consortium of Rheumatology Researchers of [place]) national data collection study. For further information please call Dr Temo Castaneda or Kim Ríos, RN, CCRC at [phone] Arthritis, rheumatoid 07/01/20062016 Abnormal blood chemistry 05/02/2006 [...] 4:00 PM EDT Immunization/Injecti on Hematology/Oncology Treatment, [address] [place] [phone] 02/17/2024 10:45 AM EDT Imaging Radiology [address], [place] [address] [facility] [address] 02/23/2024 7:30 AM EDT Laboratory Laboratory [address] [place] [phone] [facility] [address] [facility] [place] [address] 02/23/2024 8:00 AM EDT Office Visit Hematology/Oncology [address] [place] [phone] Monica Ward MD [address] [place], [place] [address] [phone] 02/23/2024 8:30 AM EDT Hem/Onc Treatment Hematology/Oncology Treatment, [address] [place] [phone] [place], Chair 4 Hem Onc [address] [place] [address] 02/24/2024 1:00 PM EDT Hem/Onc Treatment Hematology/Oncology [address], [address] [phone] [place], Chair 11 Hem Onc [address] [place] [address] 02/25/2024 1:15 PM EDT Hem/Onc Treatment Hematology/Oncology Treatment, [place] [address] [place] [phone] [place], Chair 5 Hem Onc Scenery [address] [place] [address] 07/14/2024 3:00 PM EST Office Visit Pulmonary Medicine, [facility] [address] [place] [address] Eloy Pond MD [address] [facility] [place] [address] 10/15/2024 8:40 AM EDT Office Visit Rheumatology [address] [place] [phone] Samy Russo MD [address] [employer] [place] [address] Health Maintenance Due Date Last Done Comments [...] this encounter Medical Devices Implanted Type Area Tangled Yarn Spool Straightener Device Identifier Shelf Expiration Date Model / Serial / Lot Port Implant W8f Poly Cath - [id number] Implanted:Qty : 1 on 12/31/2023 by Sin Burroughs MD at OR [facility] Right: Chest CR BARD : PERIPHERAL VASCULAR [id number] 10/09/2024 [id number] / / [id number] documented as of this encounter Visit Diagnoses [...] mL/hr documented in this encounter Care Teams Cds Sales Advisor Relationship Specialty Start Date End Date Edel Clay MD [address] [place] [address] [place] [phone] PCP - General Family Medicine 03/03/17 documented as of this encounter
--- OUTSIDE RECORDS SUMMARY | 2024-06-12 02:32 | External Medical Summary | Summary of Care ---
Author Name Unknown Organization [facility] Address [address] [place] [address] Phone [phone] Care Team Providers Care Cytopathologist Name Role Phone Edel Clay MD Primary Care Provide r Reason for Visit * Reason Onset Date Comments Health Maintenance 02/16/2024 Encounter Details Date Type Department Care Team (Late st Contact Info) Description 02/16/2024 Telephone Family Medicine [address] [phone] Edel Clay MD [address] [place], [place] [address] [address] Health Maintenance Allergies Active Allergy Reactions Criticality Noted Date Comments Clindamycin Hives 08/26/2014 Codeine 10/25/2011 "Stupor", drowsy Other Allergy (See Comments) 024 Perfumes, hairspray, candles, etc. Sinus infections, headaches, very sensitive. Penicillins 01/30/2006 Hives ans swelling Sulfa Antibiotics 06/29/2010 Sick to her stomach documented as of this encounter (statuses as of 02/16/2024) Medications Medication Sig Dispensed Refills Start Date [...] as of this encounter (statuses as of 02/16/2024) Active Problems Problem Noted Date Diagnosed Date [...] as of this encounter (statuses as of 02/16/2024) Resolved Problems Problem Noted Date Diagnosed Date [...] Thyroiditis 07/18/2008 06/01/2019 Overview: thyroglobulin antibody >3000 [id number] 08/19/200608/10 Overview: Renamed Per Clinical Trials Billing Project. Pt is a participant in the [facility] (Consortium of Rheumatology Researchers of [place]) national data collection study. For further information please call Dr Temo Castaneda or Kim Ríos, RN, CCRC at [phone] [facility] RESEARCH OTHER*[id number] 08/19/2006 11/06/2009 Overview: Renamed Per Clinical Trials Billing Project. Pt is a participant in the [facility] (Consortium of Rheumatology Researchers of [facility]) national data collection study. For further information please call Dr Temo Castaneda or Kim Ríos, RN, CCRC at [phone] Arthritis, rheumatoid 07/01/20062016 Abnormal blood chemistry 05/02/2006 Overview: positive rheumatoid factor. Metabolic syndrome 04/29/2006 0 Overview: insulin level 16 Mixed dyslipidemia 02/06/2006 9 Overview: Per Lipid Taxonomy. chol 192, hdl 26, trig 403 Allergic rhinitis due to pollen 01/30/2006 03/03/2017 Obesity, BMI not known 08/07 Overview: Per Obesity Taxonomy Denture irritation 0 documented as of this encounter (statuses as of 02/16/2024) Immunizations Name Administration Dates Next Due COVID-19 [...] encounter Miscellaneous Notes * Telephone Encounter - Deepa Cerna LPN - 02/16/2024 10:45 AM EDT Care Gaps Comprehensive Care Outreach Last Office/Telemedicine Visit: 08/05/2023 (in office), 09/01/2023 (telemedicine) Next Office Visit: Visit date not found Hemoglobin AIC Results: Lab Results Component Value Date/Time HEMOGLOBIN A1C - [facility] 5.8 (H) 08/07/2023 04:11 PM BP Readings from Last 1 Encounters: 02/04/24 149/80 Reviewed Health Maintenance below: Health Maintenance Topic Date Due HIV Screening Never done Hepatitis C Screening Never done Hepatitis B Vaccine (1 of 3 - 19+ 3-dose series) Never done Zoster Vaccines (1 of 2) Never done Depression Screening 03/09/2020 Cervical Cancer Screening 09/08/2020 Colorectal Cancer Screening 06/01/2022 Active cancer treatment metastatic Care Gap Outreach Action Taken: Outreach not indicated documented in this encounter Plan of Treatment Upcoming Encounters Date Type Department Care Team (Late st Contact Info) Description 02/17/2024 10:45 AM EDT Imaging Radiology [facility] [address] [facility] [address] [facility] [place] [address] 02/23/2024 7:30 AM EDT [facility] [place] [address] [place] [phone] Diana Mortensen [address] [place] [address] 02/23/2024 8:00 AM EDT Office Visit Hematology/Oncology Scenery [facility] [place], [place] [phone] Monica [facility] [place] [phone] 02/23/2024 8:30 AM EDT Hem/Onc Treatment Hematology/Oncology Treatment, [address], [place] [phone] [place], Chair 4 Hem Onc Scenery [address] [facility] [place], [place] [address] 02/24/2024 1:00 PM EDT Hem/Onc Treatment Hematology/Oncology Treatment, [address], [place] [phone] [place], Chair 11 Hem Onc Scenery [address] [facility] [place], [place] [address] 02/25/2024 1:30 PM EDT Hem/Onc Treatment Hematology/Oncology Treatment, [address] [place] [phone] [place], Chair 8 Hem Onc Scenery [address] [facility] [place], [place] [address] 07/14/2024 3:00 PM EST Office Visit Pulmonary Medicine, [facility] 132 [facility] [place] [address] Eloy Pond MD [address] [facility] [place] [address] 10/15/2024 8:40 AM EDT Office Visit Rheumatology [address] [place] [phone] Samy Russo MD [address] [facility] [place] [address] Health Maintenance Due Date Last Done Comments [...] this encounter Medical Devices Implanted Type Area Group Social Worker Device Identifier Shelf Expiration Date Model / Serial / Lot Port Implant W8f Poly Cath - [id number] Implanted:Qty : 1 on 12/31/2023 by Sin Burroughs MD at [facility] Right: Chest CR BARD : PERIPHERAL VASCULAR [id number] 10/09/2024 [id number] / / [id number] documented as of this encounter Care Teams Cytopathologist Relationship Specialty Start Date End Date Edel Clay MD [address] [place] [address] [place] [phone] PCP - General Family Medicine 03/03/17 documented as of this encounter
--- OUTSIDE RECORDS SUMMARY | 2024-06-12 02:33 | External Medical Summary ---
Author Name Unknown Address Unknown Organization K09:[facility] [place] [address] Laboratory Report Ordering Provider Test Date Status AKILAH ROMERO 02/02/2024 15:23:19 Final Observation Date Value Abnormality Reference (Units ) Status Color of Urine by Auto 02/02/2024 15:23:19 Yellow Final Clarity, Urine 02/02/2024 15:23:19 Clear Final Glucose [Mass/volume] in Urine by Automated test strip 02/02/2024 15:23:19 Negative (mg/dL) Final Bilirubin.total [Presence] in Urine by Automated test strip 02/02/2024 15:23:19 Negative Final Ketones [Mass/volume] in Urine by Automated test strip 02/02/2024 15:23:19 Negative (mg/dL) Final Specific gravity, Urine 02/02/2024 15:23:19 1.020 1.003-1.030 Final Hemoglobin [Presence] in Urine by Automated test strip 02/02/2024 15:23:19 Negative Final pH, Urine 02/02/2024 15:23:19 7.5 5.0-7.5 (Units) Final Protein [Mass/volume] in Urine by Automated test strip 02/02/2024 15:23:19 Negative (mg/dL) Final Urobilinogen [Mass/volume] in Urine by Automated test strip 02/02/2024 15:23:19 0.2 (mg/dL) Final Nitrite [Presence] in Urine by Automated test strip 02/02/2024 15:23:19 Negative Negative Final Leukocyte esterase [Presence] in Urine by Automated test strip 02/02/2024 15:23:19 Small Abnormal Negative Final RBC, Urine 02/02/2024 15:23:19 0-2 0-2 (/HPF) Final WBC, Urine 02/02/2024 15:23:19 10-19 Abnormal 0-2 (/HPF) Final Bacteria [#/area] in Urine sediment by Microscopy high power field 02/02/2024 15:23:19 26-50 Abnormal 0-25 (/HPF) Final Transitional cells [#/area] in Urine sediment by Microscopy high power field 02/02/2024 15:23:19 1-4 Abnormal None (/HPF) Final Performing Location [facility] 17- 11 [address] [place] [address]
--- OUTSIDE RECORDS SUMMARY | 2024-06-12 02:33 | External Medical Summary ---
Author Name Unknown Address Unknown Organization [facility] [place] [address] Laboratory Report Ordering Provider Test Date Status JUAN IBRAHIM 02/02/2024 12:36:51 Final Observation Date Value Abnormality Reference (Units ) Status SYNC LEUKOCYTES IN BLOOD BY AUTOMATED COUNT 02/02/2024 12:36:51 9.22 4.00-10.80 (K/uL) Final Segs 02/02/2024 12:36:51 48.5 40.0-75.0 (%) Final Lymphs % 02/02/2024 12:36:51 38.5 18.0-42.0 (%) Final Monos 02/02/2024 12:36:51 11.6 Above high normal 1.0-11.0 (%) Final Eosinophils 02/02/2024 12:36:51 0.3 0.0-6.0 (%) Final Basos 02/02/2024 12:36:51 1.1 0.0-2.0 (%) Final Absolute Segs 02/02/2024 12:36:51 4.47 1.80-7.70 (K/uL) Final Lymphs, absolute 02/02/2024 12:36:51 3.55 1.00-4.80 (K/ul) Final Monos, Abs 02/02/2024 12:36:51 1.07 0.00-1.10 (K/uL) Final Eos, Abs 02/02/2024 12:36:51 0.03 0.00-0.70 (K/uL) Final Basos, Abs 02/02/2024 12:36:51 0.10 0.00-0.20 (K/uL) Final Performing Location [facility] [place] [address]
--- OUTSIDE RECORDS SUMMARY | 2024-06-12 02:33 | External Medical Summary | Summary of Care ---
Author Name Unknown Organization [facility] Address [address] [place] [address] Phone [phone] Care Team Providers Care Door Worker Name Role Phone Edel Clay MD Primary Care Provide r Encounter Details Date Type Department Care Team (Late st Contact Info) Description 01/09/2024 Orders Only Hematology/Oncology, [facility] [address] [place] [address] Monica Ward MD [address] [place] [address] Allergies Active Allergy Reactions Criticality Noted Date Comments Clindamycin Hives 08/26/2014 Codeine 10/25/2011 "Stupor", drowsy Other Allergy (See Comments) 024 Perfumes, hairspray, candles, etc. Sinus infections, headaches, very sensitive. Penicillins 01/30/2006 Hives ans swelling Sulfa Antibiotics 06/29/2010 Sick to her stomach documented as of this encounter (statuses as of 01/28/2024) Medications Medication Sig Dispensed Refills Start Date [...] as of this encounter (statuses as of 01/28/2024) Active Problems Problem Noted Date Diagnosed Date [...] as of this encounter (statuses as of 01/28/2024) Resolved Problems Problem Noted Date Diagnosed Date [...] Thyroiditis 07/18/2008 06/01/2019 Overview: thyroglobulin antibody >3000 [id number][facility] 08/19/200608/10 Overview: Renamed Per Clinical Trials Billing Project. Pt is a participant in the [facility] (Consortium of Rheumatology Researchers of [place]) national data collection study. For further information please call Dr Temo Castaneda or Kim Ríos, RN, CCRC at [phone] [facility] RESEARCH OTHER*[id number] 08/19/2006 11/06/2009 Overview: Renamed Per Clinical Trials Billing Project. Pt is a participant in the [facility] (Consortium of Rheumatology Researchers of [facility]) national data collection study. For further information please call Dr Temo Castaneda or Kim Ríos, RN, CCRC at [phone] Arthritis, rheumatoid 07/01/20062016 Abnormal blood chemistry 05/02/2006 Overview: positive rheumatoid factor. Metabolic syndrome 04/29/2006 0 Overview: insulin level 16 Mixed dyslipidemia 02/06/2006 9 Overview: Per Lipid Taxonomy. chol 192, hdl 26, trig 403 Allergic rhinitis due to pollen 01/30/2006 03/03/2017 Obesity, BMI not known 08/07 Overview: Per Obesity Taxonomy Denture irritation 0 documented as of this encounter (statuses as of 01/28/2024) Immunizations Name Administration Dates Next Due COVID-19 [...] Used Date Smoking Tobacco: Former Cigarettes 1 Smokeless Tobacco: Never Comments:started age 25/ no [...] Team (Late st Contact Info) Description 02/02/2024 12:30 PM EDT Laboratory Laboratory Domin[address] Mort[address] [place] [address] [place] [phone] Diana Mortensen [place] [address] [address] [facility] [place] [address] 02/02/2024 1:00 PM EDT Office Visit Hematology/Oncology [place] [address] [place] [phone] Monica Ward MD [address] [place], [place] [address] [phone] 02/02/2024 1:30 PM EDT Hem/Onc Treatment Hematology/Oncology Treatment, [address] [phone] [place], Chair 7 Hem Onc [place] [place] [address] 02/03/2024 1:00 PM EDT Hem/Onc Treatment Hematology/Oncology Treatment, [place] [address] [place] [phone] [place], Chair 9 Hem Onc [place] [address] [place] [address] 02/04/2024 1:30 PM EDT Hem/Onc Treatment Hematology/Oncology [address], [address] [address] 02/06/2024 9:00 AM EDT Office Visit Family Medicine [address] [place] [phone] Amy Han PA-C [address] [place] [address] [place] [address] 07/14/2024 3:00 PM EST Office Visit Pulmonary Medicine, [facility] [address] [place] [address] Eloy Pond MD [address] [place] [address] 10/15/2024 8:40 AM EDT Office Visit Rheumatology [address] [place] [phone] Samy Russo MD [facility] [place] [address] Health Maintenance Due Date Last Done Comments [...] 03/02/2020, Additional history exists HbA1c 08/06/2024 08/07/2023 TSH 08/06/2024 08/07/2023, 07/11, 07/31/2021, Additional history exists Mammogram 09/11/2024 09/12/2023, 08/11, 08/29/2020, Additional history [...] this encounter Medical Devices Implanted Type Area News Director Device Identifier Shelf Expiration Date Model / Serial / Lot Port Implant W8f Poly Cath - [id number] Implanted:Qty : 1 on 12/31/2023 by Sin Burroughs MD at [facility] Right: Chest CR BARD : PERIPHERAL VASCULAR [id number] 10/09/2024 [id number] / / [id number] documented as of this encounter Care Teams Door Worker Relationship Specialty Start Date End Date Edel Clay MD [address] [place] [address] [place] [address] PCP - General Family Medicine 03/03/17 documented as of this encounter
--- OUTSIDE RECORDS SUMMARY | 2024-06-12 02:33 | External Medical Summary ---
Author Name Unknown Address Unknown Organization [facility] [place] [address] Laboratory Report Ordering Provider Test Date Status JUAN IBRAHIM 02/02/2024 12:36:51 Final Observation Date Value Abnormality Reference (Units ) Status BUN 02/02/2024 12:36:51 10 6-20 (mg/dL) Final Creatinine 02/02/2024 12:36:51 0.9 0.5-1.0 (mg/dL) Final Glomerular filtration rate/1.73 sq M.predicted [Volume Rate/Area] in Serum, Plasma or Blood by Creatinine-based formula (CKD-EPI) 02/02/2024 12:36:51 78 >=60 (mL/min) Final eGFR is calculated based on the CKD-EPI 2020 equation. Sodium 02/02/2024 12:36:51 142 135-146 (m mol/L) Final Potassium 02/02/2024 12:36:51 4.1 3.5-5.1 (m mol/L) Final Cl 02/02/2024 12:36:51 105 98-107 (mm ol/L) Final CO2 02/02/2024 12:36:51 27 22-32 (mmo l/L) Final Anion gap 02/02/2024 12:36:51 10 7-15 (mmol /L) Final Glucose 02/02/2024 12:36:51 140 Above high normal 70 -120 (mg/dL) Final Albumin 02/02/2024 12:36:51 4.0 3.8-5.0 (g /dL) Final AST (Aspartate aminotransferase) 02/02/2024 12:36:51 24 10-35 (U/L) Fin al Alk Phos 02/02/2024 12:36:51 144 Above high normal 35 -130 (U/L) Final Bilirubin, Total 02/02/2024 12:36:51 0.2 <=1 .2 (mg/dL) Final Calcium 02/02/2024 12:36:51 9.5 8.4-10.2 ( mg/dL) Final Protein 02/02/2024 12:36:51 6.7 6.0-8.3 (g /dL) Final ALT (Alanine aminotransferase) 02/02/2024 12:36:51 21 10-35 (U/L) Neo mann Performing Location [facility] [address] [place] [address]
--- OUTSIDE RECORDS SUMMARY | 2024-06-12 02:33 | External Medical Summary ---
Author Name Unknown Address Unknown Organization K09:[facility] [place] [address] Laboratory Report Ordering Provider Test Date Status JUAN IBRAHIM 02/02/2024 12:36:51 Final Observation Date Value Abnormality Reference (Units ) Status WBC, Total 02/02/2024 12:36:51 9.22 4.00-10.8 0 (K/uL) Final RBC 02/02/2024 12:36:51 3.59 3.85-5.15 (M/uL) Final Hemoglobin 02/02/2024 12:36:51 11.9 Below low normal 12 .0-15.3 (g/dL) Final HCT 02/02/2024 12:36:51 36.8 36.0-45.2 (%) Final MCV 02/02/2024 12:36:51 102.5 81.5-97.5 (fL) Final MCH 02/02/2024 12:36:51 33.1 27.0-34.0 (pg) Final MCHC 02/02/2024 12:36:51 32.3 32.0-36.0 (g/dL) Final RDW 02/02/2024 12:36:51 16.5 11.5-15.5 (%) Final Platelets 02/02/2024 12:36:51 367 140-400 (K /uL) Final MPV 02/02/2024 12:36:51 9.0 6.6-11.1 ( fL) Final Performing Location [facility] [place] [address]
--- OUTSIDE RECORDS SUMMARY | 2024-06-12 02:33 | External Medical Summary | Summary of Care ---
Author Name Unknown Organization [facility] Address [address] [place] [address] Phone [phone] Care Team Providers Care Clarifier Name Role Phone Edel Clay MD Primary [...] PENDING TECENTRIQ & FULPHILA Monica Ward MD [address] [place] [address] [place] [address] Anc Hem/Onc Scenery [place] [address] [place] [phone] Referral ID Status Reason Start Date Expiration Date V isits Requested Visits Authorized [id number] Authorized 12/17/2023 06/13/[phone] Encounter Details Date Type Department Care Team (Latest Contact Info) Description 02/03/2024 1:00 PM EDT Hem/Onc Treatment Hematology/Oncolog y Treatment, [address] [phone] [place], Chair 9 Hem Onc Scenery [address] [place] [address] Encounter for antineoplastic chemotherapy*; Cancer, metastatic [...] as of this encounter (statuses as of 02/03/2024) Medications Medication Sig Dispensed Refills Start Date [...] as of this encounter (statuses as of 02/03/2024) Active Problems Problem Noted Date Diagnosed Date [...] as of this encounter (statuses as of 02/03/2024) Resolved Problems Problem Noted Date Diagnosed Date [...] Thyroiditis 07/18/2008 06/01/2019 Overview: thyroglobulin antibody >3000 [id number] 08/19/200608/10 Overview: Renamed Per Clinical Trials Billing Project. Pt is a participant in the [facility] (Consortium of Rheumatology Researchers of [place]) national data collection study. For further information please call Dr Temo Castaneda or Kim Ríos, RN, CCRC at [phone] [facility] RESEARCH OTHER*[id number] 08/19/2006 11/06/2009 Overview: Renamed Per Clinical Trials Billing Project. Pt is a participant in the [facility] (Consortium of Rheumatology Researchers of [place]) national data collection study. For further information please call Dr Temo Castaneda or Kim Ríos, RN, CCRC at [phone] Arthritis, rheumatoid 07/01/20062016 Abnormal blood chemistry 05/02/2006 Overview: positive rheumatoid factor. Metabolic syndrome 04/29/2006 0 Overview: insulin level 16 Mixed dyslipidemia 02/06/2006 9 Overview: Per Lipid Taxonomy. chol 192, hdl 26, trig 403 Allergic rhinitis due to pollen 01/30/2006 03/03/2017 Obesity, BMI not known 08/07 Overview: Per Obesity Taxonomy Denture irritation 0 documented as of this encounter (statuses as of 02/03/2024) Immunizations Name Administration Dates Next Due COVID-19 [...] Care Team (Late st Contact Info) Description 02/04/2024 1:30 PM EDT Hem/Onc Treatment Hematology/Oncology Treatment, [address] [place] [phone] 02/05/2024 4:00 PM EDT Immunization/Injecti on Hematology/Oncology Treatment, [address] [place] [phone] 02/17/2024 10:45 AM EDT Imaging Radiology [address], [place] 132 [facility] [place] [address] 02/23/2024 7:30 AM EDT Laboratory [facility] [place] [address] [phone] [place] [address] 02/23/2024 8:00 AM EDT Office Visit Hematology/[place] [phone] Monica Ward MD [address] [place] [phone] 02/23/2024 8:30 AM EDT Hem/Onc Treatment Hematology/Oncology Treatment, [place] 200 [place] [phone] Bal[place], Chair 4 Hem Onc Scenery [address] [place], [place] [address] 02/24/2024 1:00 PM EDT Hem/Onc Treatment Hematology/Oncology Treatment, [address], [place] [phone] Bal[place], Chair 11 Hem Onc Scenery 200 [facility] [place] [address] 02/25/2024 1:15 PM EDT Hem/Onc Treatment Hematology/Oncology Treatment, [address], [place] [phone] [place], Chair 5 Hem Onc Scenery 200 [facility] [place], [place] [address] 07/14/2024 3:00 PM EST Office Visit Pulmonary Medicine, [facility] [address] [facility] [place] [phone] El[facility] Pond [facility] [address] [facility] [address] 10/15/2024 8:40 AM EDT Office Visit Rheumatology [address] [place] [phone] Samy Russo MD [address] [facility] [place] [address] Health Maintenance Due Date Last Done Comments [...] this encounter Medical Devices Implanted Type Area Animal Anatomy Teacher Device Identifier Shelf Expiration Date Model / Serial / Lot Port Implant W8f Poly Cath - [id number] Implanted:Qty : 1 on 12/31/2023 by Sin Burroughs MD at [facility] Right: Chest CR BARD : PERIPHERAL VASCULAR [id number] 10/09/2024 [id number] / / [id number] documented as of this encounter Visit Diagnoses [...] ONCE PRN Other, Hypersensitivity Reaction, Starting on Fri02/03/24 at 1338, Until Fri02/04/24 at 1337, For 24 hours EPINEPHrine 1 MG/ML inj 0.3 mg 0.3 mg, Intramuscular, ONCE PRN Other, Hypersensitivity Reaction or Anaphylaxis, Starting on Fri02/03/24 at 1338, Until Fri02/04/24 at 1337, For 24 hours hEParin 100 UNIT/ML Lock Flush inj 500 Units 500 Units (5 mL), IV Lock, PRN Other, IV Flush, Starting on Fri02/03/24 at 1338, Until Fri02/04/24 at 1337, For 24 hours, Do not flush if lock, PICC, or central line not in place; IV infusing or unable to flush. Given 02/03/2024 3:08 PM EDT 500 Units Hydrocortisone Sod Suc (PF) (Solu-Cortef) inj 100 mg 100 mg, IV Push, ONCE PRN Other, Hypersensitivity Reaction, Starting on Fri02/03/24 at 1338, Until Fri02/04/24 at 1337, For 24 hours LORAzepam (Ativan) tab 0.5 mg 0.5 mg, Oral, ONCE PRN Anxiety, Nausea, Starting on Fri02/03/24 at 1445, Until Discontinued NSS infusion Intravenous, at 50 mL/hr, PRN, Starting on Fri02/03/24 at 1445, Until Discontinued, Maintenance line Start Infusion 02/03/2024 1:58 PM EDT 50 mL/hr oxygen GAS Inhalation, OXYGEN, First dose on Fri02/03/24 at 1600, Until Discontinued, Device/Managed by: Low [...] Flush, Starting on Fri02/03/24 at 1338, Until Fri02/04/24 at 1337, For 24 hours, Do not flush if lock, PICC, or central line not in place; IV infusing or unable to flush. Given 02/03/2024 3:07 PM EDT 10 mL Inactive Administered Medications [...] 2:01 PM EDT 190 mg 519.5 mL/hr ondansetron (Zofran) tab 8 mg 8 mg, Oral, ONCE, On Fri02/03/24 at 1445, For 1 dose, Give 30 minutes prior to chemotherapy. Given 02/03/2024 1:42 PM EDT 8 mg documented in this encounter Care Teams Clarifier Relationship Specialty Start Date End Date Edel Clay MD [address] [place] [address] [place] [phone] PCP - General Family Medicine 03/03/17 documented as of this encounter
--- OUTSIDE RECORDS SUMMARY | 2024-06-12 02:33 | External Medical Summary | Summary of Care ---
Author Name Unknown Organization [facility] Address [address] [place] [address] Phone [phone] Care Team Providers Care Online Merchandising Manager Name Role Phone Edel Clay MD [...] TECENTRIQ & BATSHEVA Ward, Monica Carmona MD [address] [place] [address] [place] [phone] Anc Hem/Onc [address] [address] Referral ID Status Reason Start Date Expiration Date V isits Requested Visits Authorized [id number] Authorized 12/17/2023 06/13/2024 999 999 Encounter Details Date Type Department Care Team (Latest Contact Info) Description 02/02/2024 1:30 PM EDT Hem/Onc Treatment Hematology/Oncolog y Treatment, [address] [phone] [place] Chair 7 Hem On[address] [place] [address] Encounter for antineoplastic chemotherapy*; Cancer, metastatic [...] as of this encounter (statuses as of 02/02/2024) Medications Medication Sig Dispensed Refills Start Date End Date Status OMEGA-3 FATTY ACIDS 1000 MG PO CAPS 0 07/22/2006 Active Orencia 125 MG/ML Subcutaneous Solution Prefilled Syringe (Abatacept)Indicatio ns:Rheumatoid arthritis involving multiple sites with positive rheumatoid factor ([facility]) INJECT 125 MG ( ONE SYRINGE [...] as of this encounter (statuses as of 02/02/2024) Active Problems Problem Noted Date Diagnosed Date [...] as of this encounter (statuses as of 02/02/2024) Resolved Problems Problem Noted Date Diagnosed Date [...] Thyroiditis 07/18/2008 06/01/2019 Overview: thyroglobulin antibody >3000 [id number] 08/19/200608/10 Overview: Renamed Per Clinical Trials Billing Project. Pt is a participant in the [facility] (Consortium of Rheumatology Researchers of [facility]) national data collection study. For further information please call Dr Temo Castaneda or Kim Ríos, RN, CCRC at [phone] [facility] RESEARCH OTHER*[id number] 08/19/2006 11/06/2009 Overview: Renamed Per Clinical Trials Billing Project. Pt is a participant in the [facility] (Consortium of Rheumatology Researchers of [place]) national data collection study. For further information please call Dr Temo Castaneda or Kim Ríos, RN, CCRC at [phone] Arthritis, rheumatoid 07/01/20062016 Abnormal blood chemistry 05/02/2006 Overview: positive rheumatoid factor. Metabolic syndrome 04/29/2006 0 Overview: insulin level 16 Mixed dyslipidemia 02/06/2006 9 Overview: Per Lipid Taxonomy. chol 192, hdl 26, trig 403 Allergic rhinitis due to pollen 01/30/2006 03/03/2017 Obesity, BMI not known 08/07 Overview: Per Obesity Taxonomy Denture irritation 0 documented as of this encounter (statuses as of 02/02/2024) Immunizations Name Administration Dates Next Due COVID-19 [...] Care Team (Late st Contact Info) Description 02/03/2024 1:00 PM EDT Hem[place]Onc [place] [phone] [place], Chair [address] [place] [address] 02/04/2024 1:30 PM EDT Hem/Onc Treatment Hematology/Oncology Treatment, [place] Db [place] [phone] 02/05/2024 3:15 PM EDT Immunization/Injecti on Hematology/Oncology Treatment, [place] [facility] [phone] 02/17/2024 10:45 AM EDT Imaging Radiology [facility] 1[facility] [address] 02/23/2024 7:30 AM EDT Laboratory Laboratory [facility] [address] [place] [phone] [place], Lab [address] [facility] [place] [address] 02/23/2024 8:00 AM EDT Office Visit Hematology/Oncology [address] [place] [phone] Monica Ward MD [address] [place] [address] [place] [phone] 02/23/2024 8:30 AM EDT Hem/Onc Treatment Hematology/Oncology Treatment, [place] 200 [facility], [place] [phone] [place], Chair 4 Hem Onc [address] [place] [address] 07/14/2024 3:00 PM EST Office Visit Pulmonary Medicine, Health system [address] [facility] [place] [address] Eloy Pond MD [address] [facility] [place] [address] 10/15/2024 8:40 AM EDT Office Visit Rheumatology [address] [place] [phone] Samy Russo MD [address] [facility] [place] [address] Health Maintenance Due Date Last Done Comments [...] this encounter Medical Devices Implanted Type Area Yarn Tester Device Identifier Shelf Expiration Date Model / Serial / Lot Port Implant W8f Poly Cath - [id number] Implanted:Qty : 1 on 12/31/2023 by Sin Burroughs MD at OR [facility] Right: Chest CR BARD : PERIPHERAL VASCULAR [id number] 10/09/2024 [id number] / / [id number] documented as of this encounter Procedures Procedure Name Priority Date/Time Associated Diagnosis Comments URINALYSIS, REFLEX TO MICROSCOPIC Routine 02/02/2024 3:23 PM EDT Burning with urination documented in this encounter Results * (ABNORMAL) URINALYSIS, REFLEX TO MICROSCOPIC (02/02/2024 3:23 PM EDT) Color, Urine Yellow 02/02/2024 3:59 PM EDT [facility] 56- Clarity, Urine Clear 02/02/2024 3:59 PM EDT [facility] 56- Glucose, Urine Negative mg/dL 02/02/2024 3:59 PM EDT [facility] 56- Bilirubin, Urine Negative 02/02/20 24 3:59 PM EDT [facility] 56-02 Ketone, Urine Negative mg/dL 02/02/2024 3:59 PM EDT [facility] 56-02 Specific [place], Urine 1.020 1.003 - 1.030 02/02/2024 3:59 PM EDT [facility] 56- Blood, Urine Negative 02/02/2024 3:59 PM EDT [facility] 56- pH, Urine 7.5 5.0 - 7.5 Units 02/02/2024 3:59 PM EDT [facility] 56- Protein, Urine Negative mg/dL 02/02/2024 3:59 PM EDT [facility] [place] 56-02 Urobilinogen, Urine 0.2 mg/dL 02/02/2024 3:59 PM EDT [facility] 56-02 Nitrite, Urine Negative Negative 02/02/2024 3:59 PM EDT [facility] 56- Esterase, Urine Small(A) Negative 3:59 PM EDT [facility] 56- RBC, Urine 0-2 0 - 2 /HPF 02/02/2024 3:59 PM EDT [facility] 56- WBC, Urine 10-19(A) 0 - 2 /HPF 02/02/2024 3:59 PM EDT [facility] 56- Bacteria, Urine 26-50(A) 0 - 25 /HPF 02/02/20 3:59 PM EDT [facility] 56- Transitional Epithelial Cells, Urine 1-4(A) None /HPF 02/02/2024 3:59 PM EDT [facility] 56- Urine Urine specimen / Unknown Non-blood Collection / Unknown 02/02/2024 3:23 PM EDT 02/02/2024 3:35 PM EDT Monica Ward MD LAB URINE ORDERABLES [facility] [address] [place] [address] documented in this encounter Visit Diagnoses Diagnosis Encounter for antineoplastic chemotherapy- Primary Cancer, metastatic to bone (HCC) Secondary malignant neoplasm of bone and bone marrow Metastatic adenocarcinoma to liver (HCC) Secondary malignant neoplasm of liver Small cell lung cancer, right (HCC) Burning with urination Dysuria documented in this encounter Administered Medications Active Administered Medications - up to 3 most recent administrations Medication Order MAR Action Action Date Dose Rate Site diphenhydrAMINE (Benadryl) inj 50 mg 50 mg, IV Push, ONCE PRN Other, Hypersensitivity Reaction, Starting on Fri02/02/24 at 1428, Until Fri02/03/24 at 1427, For 24 hours EPINEPHrine 1 MG/ML inj 0.3 mg 0.3 mg, Intramuscular, ONCE PRN Other, Hypersensitivity Reaction or Anaphylaxis, Starting on Fri02/02/24 at 1428, Until Fri02/03/24 at 1427, For 24 hours hEParin 100 UNIT/ML Lock Flush inj 500 Units 500 Units (5 mL), IV Lock, PRN Other, IV Flush, Starting on Fri02/02/24 at 1428, Until Fri02/03/24 at 1427, For 24 hours, Do not flush if lock, PICC, or central line not in place; IV infusing or unable to flush. Given 02/02/2024 5:28 PM EDT 500 Units Hydrocortisone Sod Suc (PF) (Solu-Cortef) inj 100 mg 100 mg, IV Push, ONCE PRN Other, Hypersensitivity Reaction, Starting on Fri02/02/24 at 1428, Until Fri02/03/24 at 1427, For 24 hours LORAzepam (Ativan) tab 0.5 mg 0.5 mg, Oral, ONCE PRN Anxiety, Nausea, Starting on Fri02/02/24 at 1530, Until Discontinued NSS infusion Intravenous, at 50 mL/hr, PRN, Starting on Fri02/02/24 at 1530, Until Discontinued, Maintenance line Start Infusion 02/02/2024 2:31 PM EDT 50 mL/hr oxygen GAS Inhalation, OXYGEN, First dose on Fri02/02/24 at 1600, Until Discontinued, Device/Managed by: Low [...] Flush, Starting on Fri02/02/24 at 1428, Until Fri02/03/24 at 1427, For 24 hours, Do not flush if lock, PICC, or central line not in place; IV infusing or unable to flush. Given 02/02/2024 5:28 PM EDT 20 mL Inactive Administered Medications - up to [...] 2:34 PM EDT 150 mg 538.4 mL/hr documented in this encounter Care Teams Online Merchandising Manager Relationship Specialty Start Date End Date Edel Clay MD [address] [place] [address] [place] [address] PCP - General Family Medicine 03/03/17 documented as of this encounter
--- OUTSIDE RECORDS SUMMARY | 2024-06-12 02:33 | External Medical Summary | Summary of Care ---
Author Name Unknown Organization [facility] Address [address] [place] [address] Phone [phone] Care Team Providers Care Cement Mason Apprentice Name Role Phone Edel Clay MD Primary Care Provide r Reason for Visit * Reason Comments Outpatient Testing Encounter Details Date Type Department Care Team (Late st Contact Info) Description 02/02/2024 12:30 PM EDT Laboratory Laboratory [facility] [address] [place] [phone] [facility] Lab Scenery [address] [place] [address] Rheumatoid arthritis involving multiple sites with positive [...] Thyroiditis 07/18/2008 06/01/2019 Overview: thyroglobulin antibody >3000 [id number] 08/19/200608/10 Overview: Renamed Per Clinical Trials Billing Project. Pt is a participant in the [facility] (Consortium of Rheumatology Researchers of [place]) national data collection study. For further information please call Dr Temo Castaneda or Kim Ríos, RN, CCRC at [phone] [facility] RESEARCH OTHER*[id number] 08/19/2006 11/06/2009 Overview: Renamed Per Clinical Trials Billing Project. Pt is a participant in the [facility] (Consortium of Rheumatology Researchers of [place]) national data collection study. For further information please call Dr Temo Castaneda or Kim Ríos, RN, CCRC at [phone] Arthritis, rheumatoid 07/01/20062016 Abnormal blood chemistry 05/02/2006 Overview: positive rheumatoid factor. Metabolic syndrome 04/29/2006 0 Overview: insulin level 16 Mixed dyslipidemia 02/06/2006 12/15/200 9 Overview: Per Lipid Taxonomy. chol 192, [...] 02/02/2024 1:00 PM EDT Office Visit Hematology/Oncology [facility] [place] [address] [place] [phone] Monica Ward MD [address] [place] [address] [place] Soto [phone] Arrived 02/02/2024 1:30 PM EDT Hem/Onc Treatment Hematology/Oncology Treatment, [address] [phone] [place], Chair 7 Hem Onc [address] [place] [address] Arrived 02/03/2024 1:00 PM EDT Hem/Onc Treatment Hematology/Oncology Treatment, [address] [phone] [place], Chair 9 Hem Onc [address] [place] [address] 02/04/2024 1:30 PM EDT Hem/Onc Treatment Hematology/Oncology Treatment, [address] [phone] 07/14/2024 3:00 PM EST Office Visit Pulmonary Medicine, [facility] [address] [facility] [place] [address] Eloy Pond MD [address] [place] [address] 10/15/2024 8:40 AM EDT Office Visit Rheumatology [address] [place] [phone] Samy Russo MD [address] [facility] [place] [address] Pending Results Name Type Priority Associated Diagnoses Date /Time COMPREHENSIVE METABOLIC PANEL Lab Routine Rheumatoid arthritis involving multiple sites with positive rheumatoid factor (HCC) Encounter for long-term (current) use of medications 02/02/2024 12:36 PM EDT Health Maintenance Due Date Last Done [...] this encounter Medical Devices Implanted Type Area Restoration Officer Device Identifier Shelf Expiration Date Model / Serial / Lot Port Implant W8f Poly Cath - [id number] Implanted:Qty : 1 on 12/31/2023 by Sin Burroughs MD at OR [facility] Right: Chest CR BARD : PERIPHERAL VASCULAR [id number] 10/09/2024 [id number] / / [id number] documented as of this encounter Procedures Procedure Name Priority Date/Time Associated Diagnosis Comments DIFFERENTIAL, AUTOMATED Routine 02/02/2024 12:36 PM EDT Rheumatoid arthritis involving multiple sites with positive rheumatoid factor (HCC) Encounter for long-term (current) use of medications CBC Routine 02/02/2024 12:36 PM EDT Rheumatoid arthritis involving multiple sites with positive rheumatoid factor (HCC) Encounter for long-term (current) use of medications CBC Routine 02/02/2024 12:36 PM EDT Rheumatoid arthritis involving multiple sites with positive rheumatoid factor (HCC) Encounter for long-term (current) use of medications documented in this encounter Results * (ABNORMAL) DIFFERENTIAL, AUTOMATED (02/02/2024 12:36 PM EDT) WBC 9.22 4.00 - 10.80 K/uL 02/02/2024 12:54 PM EDT [facility] 56-02 Neutrophils % 48.5 40.0 - 75.0 % 02/02/2024 12:54 PM EDT [facility] 56- Lymphocytes % 38.5 18.0 - 42.0 % 02/02/2024 12:54 PM EDT [facility] 56-02 Monocytes % 11.6(H) 1.0 - 11.0 % 02/02/2024 12:54 PM EDT [facility] 56-02 Eosinophils % 0.3 0.0 - 6.0 % 02/02/2024 12:54 PM EDT [facility] 56-02 Basophils % 1.1 0.0 - 2.0 % 02/02/2024 12:54 PM EDT [facility] 56-02 Absolute Neutrophils 4.47 1.80 - 7.70 K/uL 02/02/2024 12:54 PM EDT [facility] 56-02 Absolute Lymphocytes 3.55 1.00 - 4.80 K/ul 02/02/2024 12:54 PM EDT [facility] 56-02 Absolute Monocytes 1.07 0.00 - 1.10 K/uL 02/02/2024 12:54 PM EDT [facility] 56-02 Absolute Eosinophils 0.03 0.00 - 0.70 K/uL 02/02/2024 12:54 PM EDT [facility] 56-02 Absolute Basophils 0.10 0.00 - 0.20 K/uL 02/02/2024 12:54 PM EDT [facility] 56-02 Blood Venous blood specimen / Unknown Venipuncture / Unknown 02/02/2024 12:36 PM EDT 02/02/2024 12:36 PM EDT Samy Russo MD LAB BLOOD ORDERABLE S [facility] 56- [address] [place] [address] * (ABNORMAL) CBC (02/02/2024 12:36 PM EDT) WBC 9.22 4.00 - 10.80 K/uL 02/02/2024 12:54 PM EDT [facility] 56-02 RBC 3.59 3.85 - 5.15 M/uL 02/02/2024 12:54 PM EDT [facility] 56 HGB 11.9(L) 12.0 - 15.3 g/dL 02/02/2024 12:54 PM EDT [facility] 56 HCT 36.8 36.0 - 45.2 % 02/02/2024 12:54 PM EDT [facility] 56 MCV 102.5 81.5 - 97.5 fL 02/02/2024 12:54 PM EDT [facility] 56 MCH 33.1 27.0 - 34.0 pg 02/02/2024 12:54 PM EDT [facility] 56 MCHC 32.3 32.0 - 36.0 g/dL 02/02/2024 12:54 PM EDT [facility] 56 RDW 16.5 11.5 - 15.5 % 02/02/2024 12:54 PM EDT [facility] 56 PLT 367 140 - 400 K/uL 02/02/2024 12:54 PM EDT [facility] 56 MPV 9.0 6.6 - 11.1 fL 02/02/2024 12:54 PM EDT [facility] 56 Blood Venous blood specimen / Unknown Venipuncture / Unknown 02/02/2024 12:36 PM EDT 02/02/2024 12:36 PM EDT Samy Russo MD LAB BLOOD ORDERABLE S [facility] [address] [place] [address] documented in this encounter Visit Diagnoses Diagnosis Rheumatoid arthritis involving multiple sites with positive rheumatoid factor (HCC) Encounter for long-term (current) use of medications Encounter for long-term (current) use of other medications documented in this encounter Care Teams Cement Mason Apprentice Relationship Specialty Start Date End Date Edel Clay MD [address] [place] [address] [place] [address] PCP - General Family Medicine 03/03/17 documented as of this encounter
--- OUTSIDE RECORDS SUMMARY | 2024-06-12 02:33 | External Medical Summary ---
Author Name Unknown Address Unknown Organization K01:LABORATORY [facility] - [address] [facility] [address] Laboratory Report Ordering Provider Test Date Status HEATHERSAGARMADIEMARTIN 02/02/2024 12:36:51 Final Observation Date Value Abnormality Reference (Units ) Status TSH 02/02/2024 12:36:51 9.61 Above high normal 0. 27-4.20 (uIU/mL) Final Performing Location LAB[facility]ATORY [facility] - [address] [facility] [address]
--- OUTSIDE RECORDS SUMMARY | 2024-06-12 02:33 | External Medical Summary | Summary of Care ---
Author Name Unknown Organization [facility] Address [address] [place] [address] Phone [phone] Care Team Providers Care Vocational Horticulture Instructor Name Role Phone Edel Clay MD [...] TECENTRIQ & BATSHEVA Ward, Monica Carmona MD [address] [place] [address] [place] [phone] Anc Hem/Onc [address] [address] Referral ID Status Reason Start Date Expiration Date V isits Requested Visits Authorized [id number] Authorized 12/17/2023 06/13/2024 999 999 Encounter Details Date Type Department Care Team (Latest Contact Info) Description 02/02/2024 1:30 PM EDT Hem/Onc Treatment Hematology/Oncolog y Treatment, [address] [phone] [place] Chair 7 Hem Onc [address] [place] [address] Encounter for antineoplastic chemotherapy*; Cancer, metastatic [...] Thyroiditis 07/18/2008 06/01/2019 Overview: thyroglobulin antibody >3000 [id number]-[id number]ITAL[facility]ARMAINE 08/19/200608/10 Overview: Renamed Per Clinical Trials Billing Project. Pt is a participant in the [facility] (Consortium of Rheumatology Researchers of [facility]) national data collection study. For further information please call Dr Temo Castaneda or Kim Ríos, RN, CCRC at [phone] [facility] RESEARCH OTHER*[id number] 08/19/2006 11/06/2009 Overview: Renamed Per Clinical Trials Billing Project. Pt is a participant in the [employer] (Consortium of Rheumatology Researchers of [place]) national data collection study. For further information please call Dr Temo Castaneda or Kim Ríos, RN, CCRC at [phone] Arthritis, rheumatoid 07/01/20062016 Abnormal blood chemistry 05/02/2006 [...] 02/03/2024 1:00 PM EDT Hem/Onc Treatment [facility] [place] [phone] [place], Chair 9 Hem Onc [address] [place] [address] 02/04/2024 1:30 PM EDT Hem/Onc Treatment Hematology/Oncology Treatment, [place] [address] 02/05/2024 4:00 PM EDT Immunization/Injecti on Hematology/Oncology Treatment, [place] [facility] [phone] 02/17/2024 10:45 AM EDT Imaging Radiology [facility] 1st [facility] 132 [facility] [address] 02/23/2024 7:30 AM EDT Laboratory Laboratory [facility] [address] [place] [phone] [place], Lab [address] [facility] [place] [address] 02/23/2024 8:00 AM EDT Office Visit Hematology/Oncology [address] [place] [phone] Monica Ward MD [address] [place] [address] [place] [phone] 02/23/2024 8:30 AM EDT Hem/Onc Treatment Hematology/Oncology Treatment, [place] [address] [facility], [place] [phone] [place], Chair 4 Hem Onc [address] [place] [address] 07/14/2024 3:00 PM EST Office Visit Pulmonary Medicine, [facility] 132 [facility] [place] [address] Eloy Pond MD [address] [facility] [place] [address] 10/15/2024 8:40 AM EDT Office Visit Rheumatology [address] [place] [phone] Samy Russo MD [address] [facility] [place] [address] Health Maintenance Due Date Last Done Comments [...] this encounter Medical Devices Implanted Type Area Auto Service Station Attendant Device Identifier Shelf Expiration Date Model / Serial / Lot Port Implant W8f Poly Cath - [id number] Implanted:Qty : 1 on 12/31/2023 by Sin Burroughs MD at OR [facility] Right: Chest CR BARD : PERIPHERAL VASCULAR [id number] 10/09/2024 [id number] / / [id number] documented as of this encounter Procedures Procedure Name Priority Date/Time Associated Diagnosis Comments URINALYSIS, REFLEX TO MICROSCOPIC Routine 02/02/2024 3:23 PM EDT Burning with urination documented in this encounter Results * (ABNORMAL) URINALYSIS, REFLEX TO MICROSCOPIC (02/02/2024 3:23 PM EDT) Color, Urine Yellow 02/02/2024 3:59 PM EDT [facility] 56- Clarity, Urine Clear 02/02/2024 3:59 PM EDT [facility] 56- Glucose, Urine Negative mg/dL 02/02/2024 3:59 PM EDT [facility] 56- Bilirubin, Urine Negative 02/02/20 24 3:59 PM EDT [facility] 56-02 Ketone, Urine Negative mg/dL 02/02/2024 3:59 PM EDT [facility] 56-02 Specific [place], Urine 1.020 1.003 - 1.030 02/02/2024 3:59 PM EDT [facility] 56- Blood, Urine Negative 02/02/2024 3:59 PM EDT [facility] 56- pH, Urine 7.5 5.0 - 7.5 Units 02/02/2024 3:59 PM EDT [facility] 56- Protein, Urine Negative mg/dL 02/02/2024 3:59 PM EDT [facility] 56-02 Urobilinogen, Urine 0.2 mg/dL 02/02/2024 3:59 PM EDT [facility] 56-02 Nitrite, Urine Negative Negative 02/02/2024 3:59 PM EDT [facility] 56- Esterase, Urine Small(A) Negative 3:59 PM EDT [facility] 56- RBC, Urine 0-2 0 - 2 /HPF 02/02/2024 3:59 PM EDT [facility] 56- WBC, Urine 10-19(A) 0 - 2 /HPF 02/02/2024 3:59 PM EDT [facility] 56- Bacteria, Urine 26-50(A) 0 - 25 /HPF 02/02/20 3:59 PM EDT [facility] 56- Transitional Epithelial Cells, Urine 1-4(A) None /HPF 02/02/2024 3:59 PM EDT [facility] 56- Urine Urine specimen / Unknown Non-blood Collection / Unknown 02/02/2024 3:23 PM EDT 02/02/2024 3:35 PM EDT Monica Ward MD LAB URINE ORDERABLES [facility] [address] [place] [address] documented in this encounter Visit [...] mL documented in this encounter Care Teams Vocational Horticulture Instructor Relationship Specialty Start Date End Date Edel Clay MD [address] [place] [address] [place] [address] PCP - General Family Medicine 03/03/17 documented as of this encounter
--- OUTSIDE RECORDS SUMMARY | 2024-06-12 02:33 | External Medical Summary | Summary of Care ---
Author Name Unknown Organization [facility] Address [address] [place] [address] Phone [phone] Care Team Providers Care Family Intervention Specialist Name Role Phone Edel Clay MD [...] PENDING TECENTRIQ & FULPHILA Monica Ward MD [address] [place] [address] [place] [phone] Anc Hem/Onc Scenery [place] [address] [place] [phone] Referral ID Status Reason Start Date Expiration Date V isits Requested Visits Authorized [id number] Authorized 12/17/2023 06/13/[phone] Encounter Details Date Type Department Care Team (Latest Contact Info) Description 02/03/2024 1:00 PM EDT Hem/Onc Treatment Hematology/Oncolog y Treatment, [address] [phone] [place], Chair 9 Hem Onc Scenery [address] [place] [address] Encounter for antineoplastic chemotherapy*; Cancer, metastatic [...] Thyroiditis 07/18/2008 06/01/2019 Overview: thyroglobulin antibody >3000 [id number] BRANSONNA 08/19/200608/10 Overview: Renamed Per Clinical Trials Billing Project. Pt is a participant in the CORRO (Consortium of Rheumatology Researchers of [place]) national data collection study. For further information please call Dr Temo Castaneda or Kim Ríos, RN, CCRC at [phone] [facility] RESEARCH OTHER*[id number] 08/19/2006 11/06/2009 Overview: Renamed Per Clinical Trials Billing Project. Pt is a participant in the [employer] (Consortium of Rheumatology Researchers of [place]) national data collection study. For further information please call Dr Temo Castaneda or Kim Ríos, RN, CCRC at [phone] Arthritis, rheumatoid 07/01/20062016 Abnormal blood chemistry 05/02/2006 [...] 1:30 PM EDT Hem/Onc Treatment Hematology/Oncology Treatment, [address] [place] [phone] 02/05/2024 4:00 PM EDT Immunization/Injecti on Hematology/Oncology Treatment, [address] [place] [phone] 02/17/2024 10:45 AM EDT Imaging Radiology [address], [place] [address] [facility] [place] [address] 02/23/2024 7:30 AM EDT [facility] [employer] [place] [address] [phone] [place] [address] 02/23/2024 8:00 AM EDT Office Visit Hematology/[place] [address] [place] [phone] Monica Ward MD [address] [place] [phone] 02/23/2024 8:30 AM EDT Hem/Onc Treatment Hematology/Oncology Treatment, [place] [address] [place] [phone] [place], Chair 4 Hem Onc Scenery [address] [place], [place] [address] 02/24/2024 1:00 PM EDT Hem/Onc Treatment Hematology/Oncology Treatment, [address], [place] [phone] [place], Chair 11 Hem Onc Scenery [facility] [place] [address] 02/25/2024 1:15 PM EDT Hem/Onc Treatment Hematology/Oncology Treatment, [address], [place] [phone] [place], Chair 5 Hem Onc Scenery [facility] [place], [place] [address] 07/14/2024 3:00 PM EST Office Visit Pulmonary Medicine, [facility] [address] [facility] [place] [phone] [facility] [address] [facility] [address] 10/15/2024 8:40 AM EDT Office Visit Rheumatology [address] [place] [phone] Samy Russo MD [address] [facility] [address] Health Maintenance Due Date Last Done Comments [...] this encounter Medical Devices Implanted Type Area Sheet Manager Device Identifier Shelf Expiration Date Model / Serial / Lot Port Implant W8f Poly Cath - [id number] Implanted:Qty : 1 on 12/31/2023 by Sin Burroughs MD at [facility] Right: Chest CR BARD : PERIPHERAL VASCULAR [id number] 10/09/2024 [id number] / / [id number] documented as of this encounter Visit Diagnoses [...] mg documented in this encounter Care Teams Family Intervention Specialist Relationship Specialty Start Date End Date Edel Clay MD [address] [place] [address] [place] [phone] PCP - General Family Medicine 03/03/17 documented as of this encounter
--- OUTSIDE RECORDS SUMMARY | 2024-06-12 02:34 | External Medical Summary | Summary of Care ---
Author Name Unknown Organization [facility] Address [address] [place] [address] Phone [phone] Care Team Providers Care Oracle Database Consultant Name Role Phone Edel Clay MD [...] PENDING TECENTRIQ & FULPHILA Monica Ward MD [address] [place], [place] [address] [phone] Anc Hem/Onc Scenery [address] [phone] Referral ID Status Reason Start Date Expiration Date V isits Requested Visits Authorized [id number] Authorized 12/17/2023 06/13/[phone] Encounter Details Date Type Department Care Team (Latest Contact Info) Description 12/25/2023 2:30 PM EDT Immunization/ Injection Hematology/Oncology Treatment, [address] [phone] [place], Chair [address] [address] Encounter for antineoplastic chemotherapy*; Cancer, [...] as of this encounter (statuses as of 01/18/2024) Medications Medication Sig Dispensed Refills Start Date End Date Status OMEGA-3 FATTY ACIDS 1000 MG PO CAPS 0 7 Active Orencia 125 MG/ML Subcutaneous Solution Prefilled Syringe (Abatacept)Indicat ions:Rheumatoid arthritis involving multiple sites with positive rheumatoid factor ([facility]) INJECT 125 MG ( ONE SYRINGE ) UNDER THE SKIN ONCE A WEEK 4 mL 11 3 Active Azelastine HCl 137 MCG/SPRAY Nasal SolutionIndication s:Rhinitis, nonallergic SPRAY 2 SPRAYS INTO EACH NOSTRIL IN THE MORNING AND BEFORE BEDTIME 90 mL 3 4 Active Levothyroxine Sodium 100 MCG Oral Tablet (Levoxyl)Indicatio ns:Acquired hypothyroidism Take 1 Tablet by mouth daily first thing in the morning. (at least 30 min prior to breakfast or other meds) 90 Tablet 3 4 Active Magic Swizzle (Lidocaine-Benadry l-Maalox) oral solution Swish and spit 15 mL in the morning and 15 mL before bedtime. 120 mL 1 4 Active Multivitamins Oral Capsule MULTIVITAMINS ORAL CAPSULE Active Triamcinolone Acetonide 55 MCG/ACT Nasal Aerosol (Nasacort Allergy 24HR) Active Methotrexate Sodium 2.5 MG Oral Tablet TAKE 6 TABLETS BY MOUTH ONE TIME PER WEEK 78 Tablet 1 4 Active Folic Acid 1 MG Oral TabletIndications: Rheumatoid arthritis involving multiple sites with positive rheumatoid factor ([facility]) TAKE 1 TABLET BY MOUTH EVERY DAY 90 Tablet 1 4 Active Ventolin HFA 108 (90 Base) MCG/ACT Inhalation Aerosol Solution Inhale 2 Puffs by mouth every 4 hours as needed for Shortness of Breath. 18 g 11 4 Active Prochlorperazine Maleate 10 MG Oral Tablet (Compazine)Indicat ions:Encounter for antineoplastic chemotherapy,Cance r, metastatic to bone (HCC),Metastatic adenocarcinoma to liver (HCC),Small cell lung cancer, right (HCC) Take 1 Tablet by mouth every 6 hours as needed for Nausea. 30 Tablet 5 4 Active Lidocaine-Prilocai ne 2.5-2.5 % External Cream (Emla)Indications: Small cell lung cancer, right (HCC),Metastatic adenocarcinoma to liver (HCC),Cancer, metastatic to bone (HCC) APPLY TO SKIN OVER MEDIPORT & COVER 1HR PRIOR TO ACCESSING. 30 g 1 4 Active oxyCODONE-Acetamin ophen 5-325 MG Oral Tablet (Percocet)Indicati ons:Encounter for antineoplastic chemotherapy,Cance r, metastatic to bone (HCC),Metastatic adenocarcinoma to liver (HCC),Small cell lung cancer, right (HCC) Take 2 Tablets by mouth every 6 hours as needed for Pain, Severe. 60 Tablet 4 01/21/20 24 Active Albuterol Sulfate HFA 108 (90 Base) MCG/ACT Inhalation Aerosol Solution Inhale 2 Puffs by mouth every 4 hours as needed for Cough, Shortness of Breath or Wheezing (and prior exercise). 18 g 3 4 12/31/19 24 Discontinued Hospital, Clinic, or Other Facility Administered [...] as of this encounter (statuses as of 01/18/2024) Active Problems Problem Noted Date Diagnosed Date [...] as of this encounter (statuses as of 01/18/2024) Resolved Problems Problem Noted Date Diagnosed Date [...] Thyroiditis 07/18/2008 06/01/2019 Overview: thyroglobulin antibody >3000 [id number] 08/19/200608/10 Overview: Renamed Per Clinical Trials Billing Project. Pt is a participant in the CORRONA (Consortium of Rheumatology Researchers of [place]) national data collection study. For further information please call Dr Temo Castaneda or Kim Ríos, RN, CCRC at [phone] [facility] RESEARCH OTHER*[id number] 08/19/2006 11/06/2009 Overview: Renamed Per Clinical Trials Billing Project. Pt is a participant in the CORRONA (Consortium of Rheumatology Researchers of [place]) national data collection study. For further information please call Dr Temo Castaneda or Kim Ríos RN, CCRC at [phone] Arthritis, rheumatoid 07/01/20062016 Abnormal blood chemistry 05/02/2006 Overview: positive rheumatoid factor. Metabolic syndrome 04/29/2006 0 Overview: insulin level 16 Mixed dyslipidemia 02/06/2006 9 Overview: Per Lipid Taxonomy. chol 192, hdl 26, trig 403 Allergic rhinitis due to pollen 01/30/2006 03/03/2017 Obesity, BMI not known 08/07 Overview: Per Obesity Taxonomy Denture irritation 0 documented as of this encounter (statuses as of 01/18/2024) Immunizations Name Administration Dates Next Due COVID-19 [...] Date Smoking Tobacco: Every Day Cigarettes 1 28 Smokeless Tobacco: Never Comments:started [...] of this encounter Nursing Notes * Diya Ness, ANTOINETTE - 12/25/2023 3:40 PM EDT Pt arrived for Fulphila injection. Administered in [place]. Pt tolerated well. Discharged in stable condition. documented in this encounter Plan of Treatment Upcoming Encounters Date Type Department Care Team (Late st Contact Info) Description 02/02/2024 12:30 PM EDT Laboratory Laboratory [facility] [address] [place] [phone] [place], Lab [address] [place] [address] 02/02/2024 1:00 PM EDT Office Visit Hematology/Oncology [address] [place] [phone] Monica Ward MD [address] [place] [address] [place] [phone] 02/02/2024 1:30 PM EDT Hem/Onc Treatment Hematology/Oncology Treatment, [address] [phone] [place], Chair 7 Hem Onc [address] [place] [address] 02/03/2024 1:00 PM EDT Hem/Onc Treatment Hematology/Oncology Treatment, [address] [phone] [place], Chair 9 Hem Onc [address] [place] [address] 02/04/2024 1:30 PM EDT Hem/Onc Treatment Hematology/Oncology Treatment, [address] [phone] 02/06/2024 9:00 AM EDT Office Visit [address] [phone] Amy Han PA-C [address] [place] [address] [place] [address] 07/14/2024 3:00 PM EST Office Visit Pulmonary Medicine, [facility] [address] [place] [address] Eloy Pond MD [address] [facility] [place] [address] 10/15/2024 8:40 AM EDT Office Visit Rheumatology [address] [place] [phone] Samy Russo MD [address] [place] [address] Health Maintenance Due Date Last Done Comments [...] documented as of this encounter Medical Devices Not on filedocumented as of this encounter Visit Diagnoses Diagnosis [...] mg 6 mg, Subcutaneous, ONCE, On Lizbeth 12/25/23 at 1500, For 1 dose Given 12/25/2023 2:26 PM EDT 6 mg Arm L eft Upper documented in this encounter Care Teams Oracle Database Consultant Relationship Specialty Start Date End Date Edel Clay MD [address] [place] [address] [place] [phone] PCP - General Family Medicine 03/03/17 documented as of this encounter
--- OUTSIDE RECORDS SUMMARY | 2024-06-12 02:34 | External Medical Summary ---
Author Name Unknown Address Unknown Organization K01:LABORATORY [facility] - [address] [facility] [address] Laboratory Report Ordering Provider Test Date Status BAKARI SWENSON 01/24/2024 09:41:10 Final <10,000 colonies/ml mixed no rmal ketty Observation Date Value Abnormality Reference (Units ) Status Bacteria identified in Specimen by Culture 01/24/2024 09:41:10 [id number]^ESCHE RICHIA COLI Abnormal Final 10,000 to 100,000 colonies/m L Escherichia coli Performing Location LABORATORY [facility] - [address] [facility] [address] Ordering Provider Test Date Status BAKARI SWENSON 01/24/2024 09:41:10 Final Observation Date Value Abnormality Reference (Units ) Status Ampicillin 01/24/2024 09:41:10 4 Susceptible Final Cefazolin 01/24/2024 09:41:10 <=4 Susceptible Final Cefepime susceptibility 01/24/2024 09:41:10 <=1 Susceptible Final Ceftriaxone suceptibility 01/24/2024 09:41:10 <=1 Susceptible Final Ciprofloxacin 01/24/2024 09:41:10 <=0.25 Susceptible Final Due to serious side effects, the FDA has advised against using Ciprofloxacin to treat uncomplicated UTIs and respiratory tract infections unless there are no alternative treatment options. Gentamicin susceptibility 01/24/2024 09:41:10 <=1 Susc eptible Final Nitrofurantoin susceptibility 01/24/2024 09:41:10 32 Susceptible Final Piperacillin + Tazobactamsusceptibility 01/24/2024 09:41:10 <=4 Susceptible Final TMP-SMZ susceptibility 01/24/2024 09:41:10 <=20 Suscept ible Final Test: Culture, Urine, Quanti tative
Specimen Source: Urine, Clean Catch
Specimen Type: Urine
Specimen Date: 01/24/2024 0941
Result Date: 01/26/2024 1034
Result Status: Final result
Abnormal: Yes
Resulting Lab: LAB[facility]ATORY [facility]
[address]
[place] [address]

CULTURE

10,000 to 100,000 colonies/mL Escherichia coli (Abnormal)

<10,000 colonies/ml mixed normal ketty

SUSCEPTIBILITY

Escherichia coli
METHOD MICROBROTH
DILUTIONS

AMPICILLIN 4 Susceptible
CEFAZOLIN <=4 Susceptible
CEFEPIME <=1 Susceptible
CEFTRIAXONE <=1 Susceptible
CIPROFLOXACIN <=0.25 Susceptible
[1]
GENTAMICIN <=1 Susceptible
NITROFURANTOIN 32 Susceptible
PIPERACILLIN TAZOBACTAM <=4 Susceptible
TRIMETH/SULFAMETHOXAZOLE <=20 Susceptible

[1] Due to serious side effects, the FDA has advised against using
Ciprofloxacin to treat uncomplicated UTIs and respiratory tract infections
unless there are no alternative treatment options.

null Performing Location LABORATORY [facility] - [address] [facility] [address]
--- OUTSIDE RECORDS SUMMARY | 2024-06-12 02:34 | External Medical Summary | Summary of Care ---
Author Name Unknown Organization [facility] Address [address] [place] [address] Phone [phone] Care Team Providers Care Consumer Insights Specialist Name Role Phone Edel Clay MD Primary Care Provide r Reason for Visit * Reason Comments Follow Up Treatment Encounter Details Date Type Department Care Team (Late st Contact Info) Description 01/14/2024 2:00 PM EDT Office Visit Hematology/Oncology [facility] [address] [place] [address] Maddie Suarez CRNP [address] [place] [address] Cancer, metastatic to bone (HCC)*; Small cell lung cancer, right (HCC); Metastatic adenocarcinoma to liver (HCC); Drug-related hair loss Allergies Active Allergy Reactions Criticality Noted Date Comments Clindamycin Hives 08/26/2014 Codeine 10/25/2011 "Stupor", drowsy Other Allergy (See Comments) 024 Perfumes, hairspray, candles, etc. Sinus infections, headaches, very sensitive. Penicillins 01/30/2006 Hives ans swelling Sulfa Antibiotics 06/29/2010 Sick to her stomach documented as of this encounter (statuses as of 01/22/2024) Medications Medication Sig Dispensed Refills Start Date [...] as of this encounter (statuses as of 01/22/2024) Active Problems Problem Noted Date Diagnosed Date [...] as of this encounter (statuses as of 01/22/2024) Resolved Problems Problem Noted Date Diagnosed Date [...] Thyroiditis 07/18/2008 06/01/2019 Overview: thyroglobulin antibody >3000 [id number] 08/19/200608/10 Overview: Renamed Per Clinical Trials Billing Project. Pt is a participant in the [facility] (Consortium of Rheumatology Researchers of [place]) national data collection study. For further information please call Dr Temo Castaneda or Kim Ríos, RN, CCRC at [phone] [facility] RESEARCH OTHER*[id number] 08/19/2006 11/06/2009 Overview: Renamed Per Clinical Trials Billing Project. Pt is a participant in the [facility] (Consortium of Rheumatology Researchers of [place]) national data collection study. For further information please call Dr Temo Castaneda or Kim Ríos, RN, CCRC at [phone] Arthritis, rheumatoid 07/01/20062016 Abnormal blood chemistry 05/02/2006 Overview: positive rheumatoid factor. Metabolic syndrome 04/29/2006 0 Overview: insulin level 16 Mixed dyslipidemia 02/06/2006 9 Overview: Per Lipid Taxonomy. chol 192, hdl 26, trig 403 Allergic rhinitis due to pollen 01/30/2006 03/03/2017 Obesity, BMI not known 08/07 Overview: Per Obesity Taxonomy Denture irritation 0 documented as of this encounter (statuses as of 01/22/2024) Immunizations Name Administration Dates Next Due COVID-19 [...] Sign Reading Time Taken Comments Blood Pressure 131/68 01/14/2024 2:16 PM EDT Pulse 87 01/14/2024 2:16 PM EDT Temperature 36.3 C (97.3 F) 01/14/2024 2:16 PM ED T Respiratory Rate - - Oxygen Saturation 95% 01/14/2024 2:16 PM EDT Inhaled Oxygen Concentration - - Weight 85.3 kg (188 lb) 01/14/2024 2:16 PM EDT Height - - Body Mass Index 33.3 12/31/2023 11:59 AM EDT documented in this encounter Progress Notes * Maddie Suarez CRNP - 01/14/2024 2:00 PM EDT Images from the original note were not included. Hematology/Oncology Outpatient Clinic [place] [address] Name: Alfredo Torrez Date: 01/14/2024 CHIEF COMPLAINT: Alfredo Torrez is a 58 year old female patient here today for f/u visit Patient of Dr. Ward From Patient chart confirmed history with patient. HEMATOLOGY/ONCOLOGY DIAGNOSIS: Newly diagnosed small-cell lung cancer 12/04/2023 Positive PET scan with multiple light ups Patient aware regarding diagnosis . History of Presenting Illness Alfredo Torrez is a 58 year old [...] Multiple liver lesions, concerning for metastases, labor service representative lesion in the posterior right hepatic lobe measures 3.7 x 2.6 cm. 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 No neuropathy noted. Past Medical History: Diagnosis Date Abnormal blood [...] performed by Jimmy Fine MD at OR [facility] INSER TUNN ACC DEV;5 YRS/OLDER Right 12/31/2023 INSERT TUNNELED CENTRAL VENOUS ACCESS WITH SUBQ PORT performed by Sin Burroughs MD at OR [facility] MAMMOGRAM SCREENING-BILATERAL 09/09/2007 heterogeneously dense, category 0 REMOVE GALLBLADDER 01/03/2012 Dr Gomez- [facility] US - BREAST(S) 09/23/2007 left breast category 4, FNA suggested US HEAD AND NECK 07/21/2008 mildly enlarged right thyroid, consistent with multinodular goiter US HEAD AND NECK 06/30/2012 asymmetric thyromegaly Social History Socioeconomic History Marital status: Spouse name: Margarito Number of children: 1 Years of education: Not on file Highest education level: Not on file Occupational History Employer: [employer] Tobacco Use Smoking status: Former Current packs/day: 1.00 Average packs/day: 1 pack/day for 28.0 years (28.0 ttl pk-yrs) Types: Cigarettes Smokeless tobacco: Never Tobacco comments: started age 25/ no passive smoke. 1 ppd smoker 11/27/23. Vaping Use Vaping status: Every Day Substance and Sexual Activity Alcohol use: Yes Comment: ocas Drug use: No Sexual activity: Yes Partners: Male Comment: had vas, then reversal but did not work Other Topics Concern Not on file Social History Narrative Not on file Social Determinants of Health Financial Resource Strain: Not on file Food Insecurity: No Food Insecurity (03/09/2019) Hunger Vital Sign Worried About Running Out of Food in the Last Year: Never true Ran Out of Food in the Last Year: Never true Transportation Needs: Not on file Social Connections: Unknown (10/28/2023) Social Connections How often do you feel lonely or isolated from those around you? (Adult - for ages 18 years and over): Not on file Housing Stability: Not on file Review of patient's allergies indicates: Allergen Reactions [...] SYRINGE )UNDER THE SKIN ONCE A WEEK 4 mL 11 Azelastine HCl 137 MCG/SPRAY Nasal Solution SPRAY 2 SPRAYS INTO EACH NOSTRIL IN THE MORNING AND BEFORE BEDTIME 90 mL 3 Levothyroxine Sodium 100 MCG Oral Tablet (Levoxyl) Take 1 Tablet by mouth daily first thing in the morning. (at least 30 min prior to breakfast or other meds) 90 Tablet 3 Magic Swizzle (Wnrjscipf-Wckdhjsq-Fublzz) oral solution Swish and spit 15 mL in the morning and 15 mL before bedtime. 120 mL 1 Multivitamins Oral Capsule MULTIVITAMINS ORAL CAPSULE Triamcinolone Acetonide 55 MCG/ACT Nasal Aerosol (Nasacort Allergy 24HR) NASACORT ALLERGY 24HR 55 MCG/ACT AERO (Patient not taking: Reported on 12/04/2023) Methotrexate Sodium 2.5 MG Oral Tablet TAKE 6 TABLETS BY MOUTH ONE TIME PER WEEK 78 Tablet 1 Folic Acid 1 MG Oral Tablet TAKE 1 TABLET BY MOUTH EVERY DAY 90 Tablet 1 Ventolin HFA 108 (90 [...] TO ACCESSING. 30 g 1 oxyCODONE-Acetaminophen 5-325 MG Oral Tablet (Percocet) Take 2 Tablets by mouth every 6 hours as needed for Pain, Severe. 60 Tablet 0 Current Facility-Administered Medications Medication Dose Route Frequency Provider Last Rate Last Admin Albuterol Sulfate (Proventil) (2.5 MG/3ML) 0.083% inhalation solution 2.5 mg 2.5 mg Nebulizer PRN Albuterol Sulfate (Proventil) (5 MG/ML) 0.5% *conc* inhalation solution 2.5 mg 2.5 mg Nebulizer PRN REVIEW OF SYSTEMS: Review of Systems Constitutional: Negative for appetite change, chills, fatigue and fever. HENT: Negative for mouth sores, sore throat and trouble swallowing. Respiratory: Negative for cough, shortness of breath and wheezing. Cardiovascular: Negative for chest pain and palpitations. Gastrointestinal: Positive for diarrhea and nausea. Negative for abdominal pain, blood in stool, constipation and vomiting. Had rare episode of diarrhea Had some food --after recent picnic Nausea one episode after smelling icy hot Genitourinary: Negative for difficulty urinating. Musculoskeletal: Positive for back pain. Negative for gait problem and neck pain. Has had back and right hip pain--has had some spasm Heat has helped No pain recently Skin: Negative. Neurological: Negative for dizziness, extremity weakness, gait problem, headaches, light-headednessand seizures. Psychiatric/Behavioral: Negative for depression and sleep disturbance. The patient is not nervous/anxious. OBJECTIVE: Filed Vitals: 01/14/24 1416 BP: 131/68 Pulse: 87 Temp: 36.3 C (97.3 F) TempSrc: Tympanic SpO2: 95% Weight: 85.3 kg (188 lb) Wt Readings from Last 5 Encounters: 01/15/24 87.3 kg (192 lb 7.4 oz) 01/15/24 87.3 kg (192 lb 7.4 oz) 01/14/24 85.3 kg (188 lb) 01/13/24 84.3 kg (185 lb 12.8 oz) 12/31/23 84.4 kg (186 lb) PHYSICAL EXAM: ECOG: Performance Status 0 = 100% Normal Activity General Appearance: Normal - Healthy appearing patient in no acute distress HEENT: Normal - No oral or pharyngeal masses, ulceration or thrush noted, no sinus tenderness Lymph Nodes: Normal - No palpable lymph nodes in the neck or supraclavicular areas Lungs/Thorax: Normal - Clear to auscultation Heart: Normal - Regular rate and rhythm, normal S1, S2, no appreciable murmurs, rubs, gallops Pulses/Extremities: Normal - 2+ throughout and symmetrical, no edema Abdomen: Normal - Soft, nontender, bowel sounds present, no appreciable hepatosplenomegaly, no palpable masses Musculoskeletal: Normal - No pain on palpation over bony prominence, no joint or bony deformity Neurologic: Normal - Grossly intact LABS: Results for orders placed or performed in visit on 01/13/24 COMPREHENSIVE METABOLIC PANEL Result Value Ref Range BUN 10 6 - 20 mg/dL Creatinine 0.9 0.5 - 1.0 mg/dL Estimated Glomerular Filtration Rate 78 >=60 mL/min Sodium 141 135 - 146 mmol/L Potassium 3.9 3.5 - 5.1 mmol/L Chloride 107 98 - 107 mmol/L CO2 24 22 - 32 mmol/L Anion Gap 10 7 - 15 mmol/L Glucose 106 70 - 120 mg/dL Albumin 3.9 3.8 - 5.0 g/dL AST 23 10 - 35 U/L Alkaline Phosphatase 147 (H) 35 - 130 U/L Bilirubin, Total 0.2 <=1.2 mg/dL Calcium 8.9 8.4 - 10.2 mg/dL Protein 7.1 6.0 - 8.3 g/dL ALT 11 10 - 35 U/L CBC Result Value Ref Range WBC 7.86 4.00 - 10.80 K/uL RBC 3.83 3.85 - 5.15 M/uL HGB 12.5 12.0 - 15.3 g/dL HCT 38.7 36.0 - 45.2 % MCV 101.0 81.5 - 97.5 fL MCH 32.6 27.0 - 34.0 pg MCHC 32.3 32.0 - 36.0 g/dL RDW 15.0 11.5 - 15.5 % PLT 399 140 - 400 K/uL MPV 9.2 6.6 - 11.1 fL DIFFERENTIAL, AUTOMATED Result Value Ref Range WBC 7.86 4.00 - 10.80 K/uL Neutrophils % 52.3 40.0 - 75.0 % Lymphocytes % 35.8 18.0 - 42.0 % Monocytes % 10.7 1.0 - 11.0 % Eosinophils % 0.3 0.0 - 6.0 % Basophils % 0.9 0.0 - 2.0 % Absolute Neutrophils 4.12 1.80 - 7.70 K/uL Absolute Lymphocytes 2.81 1.00 - 4.80 K/ul Absolute Monocytes 0.84 0.00 - 1.10 K/uL Absolute Eosinophils 0.02 0.00 - 0.70 K/uL Absolute Basophils 0.07 0.00 - 0.20 K/uL IMAGING Radiology: 09/12/2023: Bilateral mammogram: Dense bilateral breasts [...] Multiple liver lesions, concerning for metastases, labor service representative lesion in the posterior right [...] approximately 90%. 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 Yes. Patient instructed to discuss pain concerns with provider during the visit today Living Will or Advance Directive for Health Care as noted on the problem list. [facility] is a way you can talk to your provider on line through e-mail. Would you like to sign up? I can activate it for you? ALREADY ACTIVE Filed Vitals: 01/14/24 1416 BP: 131/68 Pulse: 87 Temp: 36.3 C (97.3 F) TempSrc: Tympanic SpO2: 95% Weight: 85.3 kg (188 lb) Patient was instructed to not get [...] Description 02/02/2024 12:30 PM EDT Laboratory Laboratory [facility] [address] [place], [place] [phone] [place], Lab Scenery 200 [facility] [place], [place] [address] 02/02/2024 1:00 PM EDT Office Visit Hematology/Oncology [facility] [place] [address] [facility] [place] [phone] Monica Ward MD [address] [facility] [place] [phone] 02/02/2024 1:30 PM EDT Hem/Onc Treatment Hematology/Oncology Treatment, [address], [place] [phone] [place], Chair 7 Hem Onc Scenery 200 [facility] [place] [address] 02/03/2024 1:00 PM EDT Hem/Onc Treatment Hematology/Oncology Treatment, [address], [place] [phone] [place], Chair 9 Hem Onc Scenery 200 [facility] [place], [place] [address] 02/04/2024 1:30 PM EDT Hem/Onc Treatment Hematology/Oncology Treatment, [address], [place] [phone] 02/06/2024 9:00 AM EDT Office Visit Family Medicine [address] [place] [phone] Amy Han PA-C [address] [place] [address] [place] [address] 07/14/2024 3:00 PM EST Office Visit Pulmonary Medicine, [facility] [address] [facility] [place] [address] Eloy Pond MD [address] [facility] [place] [phone] 10/15/2024 8:40 AM EDT Office Visit Rheumatology [address] [place] [phone] Samy Russo MD [address] [place], [place] [address] Health Maintenance Due Date Last Done Comments [...] this encounter Medical Devices Implanted Type Area Color Consultant Device Identifier Shelf Expiration Date Model / Serial / Lot Port Implant W8f Poly Cath - [id number] Implanted:Qty : 1 on 12/31/2023 by Sin Burroughs MD at OR [facility] Right: Chest CR BARD : PERIPHERAL VASCULAR [id number] 10/09/2024 [id number] / / [id number] documented as of this encounter Visit Diagnoses Diagnosis Cancer, metastatic to bone (HCC)- Primary Secondary malignant neoplasm of bone and bone marrow Small cell lung cancer, right (HCC) Metastatic adenocarcinoma to liver (HCC) Secondary malignant neoplasm of liver Drug-related hair loss Other alopecia documented in this encounter Care Teams Consumer Insights Specialist Relationship Specialty Start Date End Date Edel Clay MD [address] [place] [address] [place] [phone] PCP - General Family Medicine 03/03/17 documented as of this encounter
--- OUTSIDE RECORDS SUMMARY | 2024-06-12 02:34 | External Medical Summary | Summary of Care ---
Author Name Unknown Organization [facility] Address [address] [place] [address] Phone [phone] Care Team Providers Care Director Mobile Name Role Phone Edel Clay MD Primary Care Provide r Reason for Visit * Reason Onset Date Comments Advice 01/22/2024 fabiola Encounter Details Date Type Department Care Team (Late st Contact Info) Description 01/22/2024 Telephone Hematology/Oncology [facility] [address] [place] [address] Services, Scheduling [address] [place] [address] Advice (fabiola) Allergies Active Allergy Reactions Criticality Noted Date [...] Thyroiditis 07/18/2008 06/01/2019 Overview: thyroglobulin antibody >3000 [id number] 08/19/200608/10 Overview: Renamed Per Clinical Trials Billing Project. Pt is a participant in the [facility] (Consortium of Rheumatology Researchers of [place]) national data collection study. For further information please call Dr Temo Castaneda or Kim Ríos, RN, CCRC at [phone] [facility] RESEARCH OTHER*[id number] 08/19/2006 11/06/2009 Overview: Renamed Per Clinical Trials Billing Project. Pt is a participant in the [facility] (Consortium of Rheumatology Researchers of [place] [facility]) national data collection study. For further information please call Dr Temo Castaneda or Kim Ríos, RN, CCRC at [phone] Arthritis, rheumatoid 07/01/20062016 Abnormal blood chemistry 05/02/2006 [...] Telephone Encounter - Marcela Orellana RN - 01/22/2024 2:31 PM EDT Called patient- she states that after chemo, her urine usually smells strong and is more yellow/ cloudy, but she typically does not have burning. Yesterday when the burning was worst, she started pushing PO fluid intake and she feels this has helped- burning is not as bad today. Advised patient that due to immunocompromised status, can check UA to r/o UTI. Patient states that since burning is a little better, she would like to wait to see how she feels before doing UA. Orders placed, advised patient that if burning has continued by tomorrow morning she should go to lab. Patient agreeable to this plan. * Telephone Encounter - María Jacobs OSA - 01/22/2024 8:36 AM EDT Bernadine pt calling wanting to make dr aware that yesterday and last night she was experiencing what felt like a uti as it burned when she was urinating she also woke up to go like three different timesand also when urinating she had stuff come out as well like guppy stuff she wasn't sure how to explain it. She was also constipated but has been able to go. She also woke up cold this morning. I advised if experiences it again to give a call back but if you would like to speak with her please give her a call Thank you documented in this encounter Plan of Treatment Upcoming Encounters Date Type Department Care Team (Late Contact Info) Description 02/02/2024 12:30 PM EDT Laboratory Laboratory [facility] [place] [address] [facility] [place] [phone] Diana Mortensen [facility] [address] [facility] [place] [address] 02/02/2024 1:00 PM EDT Office Visit Hematology/Oncology [facility] [place] [address] [facility] [place] [phone] Monica Ward MD [address] [place] [address] [place] [phone] 02/02/2024 1:30 PM EDT Hem/Onc Treatment Hematology/Oncology Treatment, [address] [place] [phone] [place], Chair 7 Hem Onc [address] [place] [address] 02/03/2024 1:00 PM EDT Hem/Onc Treatment Hematology/Oncology Treatment, [address] [place] [phone] [place], Chair 9 Hem Onc [facility] [address] [facility] [place] [address] 02/04/2024 1:30 PM EDT Hem/Onc Treatment Hematology/Oncology [address], [address] [phone] 02/06/2024 9:00 AM EDT Office Visit Family Medicine [address] [place] [phone] Amy Han PA-C [address] [place] [address] [place] [address] 07/14/2024 3:00 PM EST Office Visit Pulmonary Medicine, [address] [place] [address] Eloy Pond MD [address] [place] [phone] 10/15/2024 8:40 AM EDT Office Visit Rheumatology [address] [place] [phone] Smay Russo MD [facility] [place], [place] [address] Scheduled Orders Name Type Priority Associated Diagnoses Orde r Schedule URINALYSIS, REFLEX TO MICROSCOPIC Lab STAT Metastatic adenocarcinoma to liver (HCC) Burning with urination Expected: 01/22/2024, Expires: 01/21/2025 CULTURE, URINE, QUANTITATIVE Lab STAT Metastatic adenocarcinoma to liver (HCC) Burning with urination Expected: 01/22/2024, Expires: 01/21/2025 Health Maintenance Due Date Last Done Comments [...] exists HbA1c 08/06/2024 08/07/2023 TSH 08/06/2024 08/07/2023, 03/11/2022, 07/31/2021, Additional history exists Mammogram 09/11/2024 09/12/2023, [...] this encounter Medical Devices Implanted Type Area Digital Account Executive Device Identifier Shelf Expiration Date Model / Serial / Lot Port Implant W8f Poly Cath - [id number] Implanted:Qty : 1 on 12/31/2023 by Sin Burroughs MD at OR [facility] Right: Chest CR BARD : PERIPHERAL VASCULAR [id number] 10/09/2024 [id number] / / [id number] documented as of this encounter Visit Diagnoses Diagnosis Metastatic adenocarcinoma to liver (HCC)- Primary Secondary malignant neoplasm of liver Burning with urination Dysuria documented in this encounter Care Teams Director Mobile Relationship Specialty Start Date End Date Edel Clay MD [address] [place] [address] [place] [address] PCP - General Family Medicine 03/03/17 documented as of this encounter
--- OUTSIDE RECORDS SUMMARY | 2024-06-12 02:34 | External Medical Summary | Summary of Care ---
Author Name Unknown Organization [facility] Address [address] [place] [address] Phone [phone] Care Team Providers Care Seat Builder Name Role Phone Edel Clay MD Primary Care Provide r Reason for Visit * Reason Onset Date Comments Advice 01/22/2024 fabiola Encounter Details Date Type Department Care Team (Late st Contact Info) Description 01/22/2024 Telephone Hematology/Oncology [facility] [address] [place] [address] Services, Scheduling [address] [place] [address] Advice (fabiola) Allergies Active Allergy Reactions Criticality Noted Date Comments Clindamycin Hives 08/26/2014 Codeine 10/25/2011 "Stupor", drowsy Other Allergy (See Comments) 024 Perfumes, hairspray, candles, etc. Sinus infections, headaches, very sensitive. Penicillins 01/30/2006 Hives ans swelling Sulfa Antibiotics 06/29/2010 Sick to her stomach documented as of this encounter (statuses as of 01/23/2024) Medications Medication Sig Dispensed Refills Start Date [...] as of this encounter (statuses as of 01/23/2024) Active Problems Problem Noted Date Diagnosed Date [...] as of this encounter (statuses as of 01/23/2024) Resolved Problems Problem Noted Date Diagnosed Date [...] Thyroiditis 07/18/2008 06/01/2019 Overview: thyroglobulin antibody >3000 [id number] 08/19/200608/10 Overview: Renamed Per Clinical Trials Billing Project. Pt is a participant in the [facility] (Consortium of Rheumatology Researchers of [place]) national data collection study. For further information please call Dr Temo Castaneda or Kim Ríos, RN, CCRC at [phone] [facility] RESEARCH OTHER*[id number] 08/19/2006 11/06/2009 Overview: Renamed Per Clinical Trials Billing Project. Pt is a participant in the [facility] (Consortium of Rheumatology Researchers of [facility]) national data collection study. For further information please call Dr Temo Castaneda or Kim Ríos, RN, CCRC at [phone] Arthritis, rheumatoid 07/01/20062016 Abnormal blood chemistry 05/02/2006 Overview: positive rheumatoid factor. Metabolic syndrome 04/29/2006 0 Overview: insulin level 16 Mixed dyslipidemia 02/06/2006 9 Overview: Per Lipid Taxonomy. chol 192, hdl 26, trig 403 Allergic rhinitis due to pollen 01/30/2006 03/03/2017 Obesity, BMI not known 08/07 Overview: Per Obesity Taxonomy Denture irritation 0 documented as of this encounter (statuses as of 01/23/2024) Immunizations Name Administration Dates Next Due COVID-19 [...] encounter Miscellaneous Notes * Telephone Encounter - Leigha Danielle OSA - 01/23/2024 12:40 PM EDT Pt calling back, states she seems to be doing okay and if she has anymore problems she will let youknow. * Telephone Encounter - Marcela Orellana RN - 01/23/2024 10:32 AM EDT Patient did not go for urine test. Left message for patient to return call. * Telephone Encounter - Marcela Orellana RN [...] 02/02/2024 12:30 PM EDT Laboratory Laboratory [facility] [address] [place] [phone] [facility] [address] Canales [place] [address] 02/02/2024 1:00 PM EDT Office Visit Hematology/Oncology [facility] [address] [place] [phone] Monica Ward MD [address] [place] [address] [place] [phone] 02/02/2024 1:30 PM EDT Hem/Onc Treatment Hematology/Oncology Treatment, [address] [phone] [place], Chair [address] Hem On[address] [place] [address] 02/03/2024 1:00 PM EDT Hem/Onc Treatment Hematology/Oncology Treatment, [address] [phone] [place], Chair 9 Hem Onc [place] [address] [place] [address] 02/04/2024 1:30 PM EDT Hem/Onc Treatment Hematology/Oncology Treatment, [place] [address] [place] [phone] 02/06/2024 9:00 AM EDT Office Visit Family Medicine [address] [place] [phone] Amy Han PA-C [address] [place] [address] [place] [address] 07/14/2024 3:00 PM EST Office Visit Pulmonary Medicine, [facility] [address] [facility] [place] [address] Eloy Pond MD [address] [facility] [place] [address] 10/15/2024 8:40 AM EDT Office Visit Rheumatology [address] [place] [phone] Samy Russo MD [address] [facility] [place] [address] Scheduled Orders Name Type Priority Associated Diagnoses [...] this encounter Medical Devices Implanted Type Area Engraver Apprentice Decorative Device Identifier Shelf Expiration Date Model / Serial / Lot Port Implant W8f Poly Cath - [id number] Implanted:Qty : 1 on 12/31/2023 by Sin Burroughs MD at OR [facility] Right: Chest CR BARD : PERIPHERAL VASCULAR [id number] 10/09/2024 [id number] / / [id number] documented as of this encounter Visit Diagnoses Diagnosis Metastatic adenocarcinoma to liver (HCC)- Primary Secondary malignant neoplasm of liver Burning with urination Dysuria documented in this encounter Care Teams Seat Builder Relationship Specialty Start Date End Date Edel Clay MD [address] [place] [address] [place] [phone] PCP - General Family Medicine 03/03/17 documented as of this encounter
--- OUTSIDE RECORDS SUMMARY | 2024-06-12 02:34 | External Medical Summary | Summary of Care ---
Author Name Unknown Organization [facility] Address [address] [place] [address] Phone [phone] Care Team Providers Care Outreach Worker Name Role Phone Edel Clay MD Primary Care Provide r Reason for Visit * Reason Onset Date Comments Advice 01/22/2024 fabiola Encounter Details Date Type Department Care Team (Late st Contact Info) Description 01/22/2024 Telephone Hematology/Oncology [facility] [address] [place] [address] Services, Scheduling [address] [place] [address] Advice (fabiola) Allergies Active Allergy Reactions Criticality [...] Thyroiditis 07/18/2008 06/01/2019 Overview: thyroglobulin antibody >3000 [id number][facility] 08/19/200608/10 Overview: Renamed Per Clinical Trials Billing Project. Pt is a participant in the [facility] (Consortium of Rheumatology Researchers of [place]) national data collection study. For further information please call Dr Temo Castaneda or Kim Ríos, RN, CCRC at [phone] [facility] RESEARCH OTHER*[id number] 08/19/2006 11/06/2009 Overview: Renamed Per Clinical Trials Billing Project. Pt is a participant in the [facility] (Consortium of Rheumatology Researchers of [place] [facility]) national data collection study. For further information please call Dr Temo Castaneda or Kim Ríos, RN, CCRC at [phone] Arthritis, rheumatoid 07/01/20062016 Abnormal blood chemistry 05/02/2006 [...] EDT Bernadine pt calling wanting to make aware that yesterday and last night she [...] Description 02/02/2024 12:30 PM EDT Laboratory Laboratory [facility] [address] [place] [phone] [place], Lab [place] [address] Dominic Canales [facility] [place] [address] 02/02/2024 1:00 PM EDT Office Visit Hematology/Oncology [facility] [address] [place] [phone] Monica Ward MD [address] [place] [address] [place] [phone] 02/02/2024 1:30 PM EDT Hem/Onc Treatment Hematology/Oncology Treatment, [address] [phone] [place], Chair 7 Hem Onc [address] [place] [address] 02/03/2024 1:00 PM EDT Hem/Onc Treatment Hematology/Oncology Treatment, [address] [phone] [place], Chair 9 Hem Onc [address] [place] [address] 02/04/2024 1:30 PM EDT Hem/Onc Treatment Hematology/Oncology Treatment, [address] [phone] 02/06/2024 9:00 AM EDT Office Visit [address] [phone] Amy Han PA-C [address] [place] [address] [place] [address] 07/14/2024 3:00 PM EST Office Visit Pulmonary Medicine, [facility] [address] [place] [address] Eloy Pond MD [address] [facility] [address] 10/15/2024 8:40 AM EDT Office Visit Rheumatology [address] [place] [phone] Samy Russo MD [facility] [place] [address] Scheduled Orders Name Type Priority Associated Diagnoses [...] this encounter Medical Devices Implanted Type Area New Car Make Ready Worker Device Identifier Shelf Expiration Date Model / Serial / Lot Port Implant W8f Poly Cath - [id number] Implanted:Qty : 1 on 12/31/2023 by Sin Burroughs MD at [facility] Right: Chest CR BARD : PERIPHERAL VASCULAR [id number] 10/09/2024 [id number] / / [id number] documented as of this encounter Visit Diagnoses Diagnosis Metastatic adenocarcinoma to liver (HCC)- Primary Secondary malignant neoplasm of liver Burning with urination Dysuria documented in this encounter Care Teams Outreach Worker Relationship Specialty Start Date End Date Edel Clay MD [address] [place] [address] [place] [address] PCP - General Family Medicine 03/03/17 documented as of this encounter
--- OUTSIDE RECORDS SUMMARY | 2024-06-12 02:34 | External Medical Summary ---
Author Name Unknown Address Unknown Organization [facility] [address] [place] [address] Laboratory Report Ordering Provider Test Date Status BAKARI SWENSON 01/24/2024 09:41:10 Final Observation Date Value Abnormality Reference (Units ) Status Color of Urine by Auto 01/24/2024 09:41:10 Yellow Light Yellow, Yellow, Dark Yellow Final Clarity, Urine 01/24/2024 09:41:10 Slightly Cloudy Abnormal Clear Final Glucose [Mass/volume] in Urine by Automated test strip 01/24/2024 09:41:10 Negative Negative (mg/dL) Final Bilirubin.total [Presence] in Urine by Automated test strip 01/24/2024 09:41:10 Negative Negative Final Ketones [Mass/volume] in Urine by Automated test strip 01/24/2024 09:41:10 Negative Negative (mg/dL) Final Specific gravity, Urine 01/24/2024 09:41:10 1.010 1.003-1.030 Final Hemoglobin [Presence] in Urine by Automated test strip 01/24/2024 09:41:10 Moderate Abnormal Negative Final pH, Urine 01/24/2024 09:41:10 7.0 5.0-7.5 (Units) Final Protein [Mass/volume] in Urine by Automated test strip 01/24/2024 09:41:10 Trace Abnormal Negative (mg/dL) Final Urobilinogen [Mass/volume] in Urine by Automated test strip 01/24/2024 09:41:10 0.2 0.2, 1.0 (mg/dL) Final Nitrite [Presence] in Urine by Automated test strip 01/24/2024 09:41:10 Negative Negative Final Leukocyte esterase [Presence] in Urine by Automated test strip 01/24/2024 09:41:10 Moderate Abnormal Negative Final RBC, Urine 01/24/2024 09:41:10 50+ Abnormal 0-2 (/HPF) Final WBC, Urine 01/24/2024 09:41:10 50+ Abnormal 0-2 (/HPF) Final Bacteria [#/area] in Urine sediment by Microscopy high power field 01/24/2024 09:41:10 26-50 Abnormal 0-25 (/HPF) Final Performing Location LABORATORY [address] - [address] [facility] [address]
--- OUTSIDE RECORDS SUMMARY | 2024-06-12 02:34 | External Medical Summary | Summary of Care ---
Author Name Unknown Organization [facility] Address [address] [place] [address] Phone [phone] Care Team Providers Care Beam Department Supervisor Name Role Phone Edel Clay MD Primary Care Provide r Reason for Visit * Reason Comments Outpatient Testing Encounter Details Date Type Department Care Team (Late st Contact Info) Description 01/24/2024 9:40 AM EDT Laboratory Laboratory, [facility] [address] [place] [phone] [facility] [address] [place] [address] Suspected urinary tract infection Allergies Active Allergy Reactions Criticality Noted Date Comments Clindamycin Hives 08/26/2014 Codeine 10/25/2011 "Stupor", drowsy Other Allergy (See Comments) 024 Perfumes, hairspray, candles, etc. Sinus infections, headaches, very sensitive. Penicillins 01/30/2006 Hives ans swelling Sulfa Antibiotics 06/29/2010 Sick to her stomach documented as of this encounter (statuses as of 01/24/2024) Medications Medication Sig Dispensed Refills Start Date [...] as of this encounter (statuses as of 01/24/2024) Active Problems Problem Noted Date Diagnosed Date [...] as of this encounter (statuses as of 01/24/2024) Resolved Problems Problem Noted Date Diagnosed Date [...] Thyroiditis 07/18/2008 06/01/2019 Overview: thyroglobulin antibody >3000 [id number] 08/19/200608/10 Overview: Renamed Per Clinical Trials Billing Project. Pt is a participant in the [facility] (Consortium of Rheumatology Researchers of [place]) national data collection study. For further information please call Dr Temo Castaneda or Kim Ríos, RN, CCRC at [phone] [facility] RESEARCH OTHER*[id number] 08/19/2006 11/06/2009 Overview: Renamed Per Clinical Trials Billing Project. Pt is a participant in the [facility] (Consortium of Rheumatology Researchers of [facility]) national data collection study. For further information please call Dr Temo Castaneda or Kim Ríos, RN, CCRC at [phone] Arthritis, rheumatoid 07/01/20062016 Abnormal blood chemistry 05/02/2006 Overview: positive rheumatoid factor. Metabolic syndrome 04/29/2006 0 Overview: insulin level 16 Mixed dyslipidemia 02/06/200604/25/ 9 Overview: Per Lipid Taxonomy. chol 192, hdl 26, trig 403 Allergic rhinitis due to pollen 01/30/2006 03/03/2017 Obesity, BMI not known 08/07 Overview: Per Obesity Taxonomy Denture irritation 0 documented as of this encounter (statuses as of 01/24/2024) Immunizations Name Administration Dates Next Due COVID-19 [...] Description 02/02/2024 12:30 PM EDT Laboratory [facility] [place] [phone] Diana Mortensen [place] [address] [place] [address] 02/02/2024 1:00 PM EDT Office Visit Hematology/Oncology [facility] [place] [address] [place] [address] [phone] Monica Ward MD [address] [place], [place] [address]T[place] [phone] 02/02/2024 1:30 PM EDT Hem/Onc Treatment Hematology/Oncology Treatment, [address] [place] [phone] [place], Chair 7 Hem Onc [place] [address] [place] [address] 02/03/2024 1:00 PM EDT Hem/Onc Treatment Hematology/Oncology Treatment, [address] [place] [phone] [place], Chair 9 Hem Onc [place] [address] [place] [address] 02/04/2024 1:30 PM EDT Hem/Onc Treatment Hematology/Oncology Treatment, [address] [place] [phone] 02/06/2024 9:00 AM EDT Office Visit Family Medicine [address] [place] [phone] Amy Han PA-C [address] [place] [address] [place] [address] 07/14/2024 3:00 PM EST Office Visit Pulmonary Medicine, [facility] [address] [facility] [place] [address] Eloy Pond MD [address] [facility] [place] [address] 10/15/2024 8:40 AM EDT Office Visit Rheumatology [address] [place] [phone] Samy Russo MD [facility] [place] [place] [address] Pending Results Name Type Priority Associated Diagnoses Date /Time URINALYSIS WITH MICROSCOPIC EXAM Lab Routine Suspected urinary tract infection 01/24/2024 9:41 AM EDT CULTURE, URINE, QUANTITATIVE Lab Routine Suspected urinary tract infection 01/24/2024 9:41 AM EDT Health Maintenance Due Date Last [...] this encounter Medical Devices Implanted Type Area Tow Mate Device Identifier Shelf Expiration Date Model / Serial / Lot Port Implant W8f Poly Cath - [id number] Implanted:Qty : 1 on 12/31/2023 by Sin Burroughs MD at OR [facility] Right: Chest CR BARD : PERIPHERAL VASCULAR [id number] 10/09/2024 [id number] / / [id number] documented as of this encounter Visit Diagnoses Diagnosis Suspected urinary tract infection documented in this encounter Care Teams Beam Department Supervisor Relationship Specialty Start Date End Date Edel Clay MD [address] [place] [address] [place] [address] PCP - General Family Medicine 03/03/17 documented as of this encounter
--- OUTSIDE RECORDS SUMMARY | 2024-06-12 02:35 | External Medical Summary | Summary of Care ---
Author Name Unknown Organization [facility] Address [address] [place] [address] Phone [phone] Care Team Providers Care Special Delivery Clerk Name Role Phone Edel Clay MD Primary Care Provide r Reason for Visit * Reason Comments Chemotherapy C1/D3 - Etoposide * Episode Based Medications (Routine) - Authorized Specialty Diagnoses / Procedures Referred By Contac t Referred To Contact Diagnoses Encounter for antineoplastic chemotherapy Cancer, metastatic to bone (HCC) Metastatic adenocarcinoma to liver (HCC) Small cell lung cancer, right (HCC) Procedures PENDING TECENTRIQ & FULPHILA Monica Ward MD [address] [place] [address] [place] [phone] Anc Hem/Onc Scenery [place] [address] [place] [phone] Referral ID Status Reason Start Date Expiration Date V isits Requested Visits Authorized [id number] Authorized 12/17/2023 06/13/[phone] Encounter Details Date Type Department Care Team (Latest Contact Info) Description 12/24/2023 12:30 PM EDT Hem/Onc Treatment Hematology/Oncolog y Treatment, [address] [phone] [place], Chair 9 Hem Onc Scenery [address] [place] [address] Encounter for antineoplastic chemotherapy*; Cancer, metastatic [...] involving multiple sites with positive rheumatoid factor ([facility]) INJECT 125 MG ( ONE SYRINGE ) [...] involving multiple sites with positive rheumatoid factor ([facility]) TAKE 1 TABLET BY MOUTH EVERY DAY [...] Thyroiditis 07/18/2008 06/01/2019 Overview: thyroglobulin antibody >3000 ABA-JULIET 08/19/200608/10 Overview: Renamed Per Clinical Trials Billing Project. Pt is a participant in the [facility] (Consortium of Rheumatology Researchers of [place]) national data collection study. For further information please call Dr Temo Castaneda or Kim Ríos, RN, CCRC at [phone] [facility] RESEARCH OTHER*[id number] 08/19/2006 11/06/2009 Overview: Renamed Per Clinical Trials Billing Project. Pt is a participant in the [employer] (Consortium of Rheumatology Researchers of [place]) national data collection study. For further information please call Dr Temo Castaneda or Kim Ríos, RN, CCRC at [phone] Arthritis, rheumatoid 07/01/20062016 Abnormal blood chemistry 05/02/2006 [...] Day Cigarettes 1 28 Smokeless Tobacco: Never Tobacco Cessation:Ready to Q uit: Not Asked; Counseling Given: Not Answered Comments:started age 25/ no passive smoke. 1 [...] Sign Reading Time Taken Comments Blood Pressure 179/92 12/24/2023 12:50 PM EDT Pulse 92 12/24/2023 12:50 PM EDT Temperature 36.6 C (97.8 F) 12/24/2023 12:50 PM E DT Respiratory Rate 16 12/24/2023 12:50 PM EDT Oxygen Saturation 96% 12/24/2023 12:50 PM EDT Inhaled Oxygen Concentration - - Weight - - Height - - Body Mass Index - - documented in this encounter Nursing Notes * Madleine Crocker RN - 12/24/2023 2:42 PM EDT Goals: Patient will remain free from injury. Possible barriers to meeting goals: ambulating with IV pole Stability of the patient: Moderately stable - low risk of patient condition declining or worsening Summary regarding today's goals: Met: pt remained free of harm today Patient agreeable to getting Zometa infusion today. Patient tolerated treatment well without any acute issues or problems. She will return tomorrow forFulphila injection tomorrow at 2:30 pm. Patient left facility in stable condition and denied any further needs. * Madeline Crocker RN - 12/24/2023 12:54 PM EDT Chair 9. IV inserted, no issues. Patient here for day 3/3 of Etoposide. She will return tomorrow for Udenyca injection. Overall she is feeling well, only c/oi some heartburn which she said she did take some Tums for yesterday and that seemed to help. RN educated she could take a daily Pepcid for this if it continues to see if this helps. Chemotherapy/Immunotherapy agents: ETOPOSIDE Consent for chemotherapy drug treatment complete, dated, and signed? yes, date - 12/12/2023 Treatment lab parameters met? Yes Has treatment weight changed > than 10%? No Treatment preauthorized? Yes VITALS Filed Vitals: 12/24/23 1250 BP: 179/92 Pulse: 92 Resp: 16 Temp: 36.6 C (97.8 F) TempSrc: Tympanic SpO2: 96% Urine protein: [...] function. PRE-TREATMENT ASSESSMENT: NEURO: denies symptoms CV/RESP: shortness of breath: with activity GI/: OTHER: heartburn/reflux, see above OTHER: denies any additional symptoms PAIN: 0 Safety and Risk for Injury Patient will remain free from injury. Ensure appropriate safety devices are available. Provide and maintain safe environment. documented in this encounter Plan of Treatment Upcoming Encounters Date Type Department Care Team (Late st Contact Info) Description 02/02/2024 12:30 PM EDT Laboratory Laboratory [facility] Silvia Mortensen [facility] [place] [address] [phone] Diana Mortensen [place] [address] [place] [address] 02/02/2024 1:00 PM EDT Office Visit Hematology/Oncology [place] Sil[place] Sunshine [facility] [place] [address] [place] [phone] Monica Ward MD [address] [place] [address] [place] [phone] 02/02/2024 1:30 PM EDT Hem/Onc Treatment Hematology/Oncology Treatment, [place] [address] [facility], [place] [phone] [place], Chair 7 Hem Onc [address] [place] [address] 02/03/2024 1:00 PM EDT Hem/Onc Treatment Hematology/Oncology Treatment, [address] [phone] [place], Chair [address] [facility] [address] [place] [address] [place] [address] 02/04/2024 1:30 PM EDT Hem/Onc Treatment Hematology/Oncology Treatment, [address], [place] [phone] 02/06/2024 9:00 AM EDT Office Visit Family Medicine [address] [place] [phone] Amy Han PA-C [address] [place] [address] [place] [address] 07/14/2024 3:00 PM EST Office Visit Pulmonary Medicine, [address] [place] [address] Eloy Pond MD [address] [place] [address] 10/15/2024 8:40 AM EDT Office Visit Rheumatology [address] [place] [phone] Samy Russo MD [address] [facility] [place] [address] Health Maintenance Due Date Last Done Comments [...] weight), IV Piggyback, ONCE, 1 dose, On Fri12/24/23 at 1430, Administer over 60 Minutes, Recommended concentration is less than or equal to 0.4 mg/mL. If concentration is greater than 0.4 mg/mL recommend to administer through 0.22 micron low protein binding filter. Start Infusion 12/24/2023 1:21 PM EDT 190 mg 519.5 mL/hr NSS infusion Intravenous, at 50 mL/hr, PRN, Starting on Fri12/24/23 at 1400, Until Fri12/24/23 at 1952, Maintenance line Start Infusion 12/24/2023 12:56 PM EDT 50 mL/hr ondansetron (Zofran) tab 8 mg 8 mg, Oral, ONCE, On Fri12/24/23 at 1400, For 1 dose, Give 30 minutes prior to chemotherapy. Given 12/24/2023 12:54 PM EDT 8 mg Zoledronic Acid (Zometa) 4 mg in 100 mL PREMIX ivpb 4 mg, IV Piggyback, ONCE, 1 dose, On Fri12/24/23 at 1445 Start Infusion 12/24/2023 2:33 PM EDT 4 mg 400 mL/hr documented in this encounter Care Teams Special Delivery Clerk Relationship Specialty Start Date End Date Edel Clay MD [address] [place] [address] [place] [address] PCP - General Family Medicine 03/03/17 documented as of this encounter
--- OUTSIDE RECORDS SUMMARY | 2024-06-12 02:35 | External Medical Summary | Summary of Care ---
Author Name Unknown Organization [facility] Address [address] [place] [address] Phone [phone] Care Team Providers Care Product Managent Intern Name Role Phone Edel Clay MD Primary Care Provide r Reason for Visit * Reason Comments Chemotherapy C1/D1 - Tecentriq, C arbo, Etoposide * Episode Based Medications (Routine) - Authorized Specialty Diagnoses / Procedures Referred By Contac t Referred To Contact Diagnoses Encounter for antineoplastic chemotherapy Cancer, metastatic to bone (HCC) Metastatic adenocarcinoma to liver (HCC) Small cell lung cancer, right (HCC) Procedures PENDING TECENTRIQ & HALEIGHPHILA Monica Ward MD [address] [place] [address] [place] [phone] Anc Hem/Onc [address] [address] Referral ID Status Reason Start Date Expiration Date V isits Requested Visits Authorized [id number] Authorized 12/17/2023 06/13/2024 999 999 Encounter Details Date Type Department Care Team (Latest Contact Info) Description 12/22/2023 12:00 PM EDT Hem/Onc Treatment Hematology/Oncolog y Treatment, [address] [phone] [place], Chair 3 Hem Onc [address] [place] [address] Encounter for antineoplastic chemotherapy*; Cancer, metastatic [...] as of this encounter (statuses as of 01/17/2024) Medications Medication Sig Dispensed Refills Start Date [...] 18 g 3 4 12/31/19 24 Discontinued dexAMETHasone 4 MG Oral Tablet (Decadron)Indicati ons:Encounter for antineoplastic chemotherapy,Cance r, metastatic to bone (HCC),Metastatic adenocarcinoma to liver (HCC),Small cell lung cancer, right (HCC) Take 2 Tablets by mouth in the morning for 3 days. With food on days 2, 3, and 4 of chemo.. Do not start before December 20, 2023. 24 Tablet 4 12/23/19 24 OLANZapine 10 MG Oral Tablet (zyPREXA)Alextio ns:Encounter for antineoplastic chemotherapy,Cance r, metastatic to bone (HCC),Metastatic adenocarcinoma to liver (HCC),Small cell lung cancer, right (HCC) Take 1 Tablet by mouth at bedtime for 4 days. On days 1, 2, 3, and 4 of chemo. 16 Tablet 4 12/23/19 24 Hospital, Clinic, or Other Facility Administered Medication Ordered Dose Route Frequency Start Date End Date Status Albuterol Sulfate (Proventil) (2.5 MG/3ML) 0.083% inhalation solution 2.5 mgIndications:Mass of right lung 2.5 mg NEBULIZER PRN 12/10/2023 Active Albuterol Sulfate (Proventil) (5 MG/ML) 0.5% *conc* inhalation solution 2.5 mgIndications:Mass of right lung 2.5 mg NEBULIZER PRN 12/10/2023 Active documented as of this encounter (statuses as of 01/17/2024) Active Problems Problem Noted Date Diagnosed Date [...] as of this encounter (statuses as of 01/17/2024) Resolved Problems Problem Noted Date Diagnosed Date [...] Thyroiditis 07/18/2008 06/01/2019 Overview: thyroglobulin antibody >3000 [id number]-[facility] 08/19/200608/10 Overview: Renamed Per Clinical Trials Billing Project. Pt is a participant in the [facility] (Consortium of Rheumatology Researchers of [place]) national data collection study. For further information please call Dr Temo Castaneda or Kim Ríos, RN, CCRC at [phone] [facility] RESEARCH OTHER*[id number] 08/19/2006 11/06/2009 Overview: Renamed Per Clinical Trials Billing Project. Pt is a participant in the [facility] (Consortium of Rheumatology Researchers of [facility]) national data collection study. For further information please call Dr Temo Castaneda or Kim Ríos, RN, CCRC at [phone] Arthritis, rheumatoid 07/01/20062016 Abnormal blood chemistry 05/02/2006 Overview: positive rheumatoid factor. Metabolic syndrome 04/29/2006 0 Overview: insulin level 16 Mixed dyslipidemia 02/06/2006 9 Overview: Per Lipid Taxonomy. chol 192, hdl 26, trig 403 Allergic rhinitis due to pollen 01/30/2006 03/03/2017 Obesity, BMI not known 08/07 Overview: Per Obesity Taxonomy Denture irritation 0 documented as of this encounter (statuses as of 01/17/2024) Immunizations Name Administration Dates Next Due COVID-19 [...] Sign Reading Time Taken Comments Blood Pressure 142/85 12/22/2023 12:20 PM EDT Pulse 89 12/22/2023 12:20 PM EDT Temperature 37.1 C (98.8 F) 12/22/2023 12:20 PM E DT Respiratory Rate 16 12/22/2023 12:20 PM EDT Oxygen Saturation 96% 12/22/2023 12:20 PM EDT Inhaled Oxygen Concentration - - Weight 84.6 kg (186 lb 9.6 oz) 12/22/2023 12:20 PM EDT Height - - Body Mass Index 33.05 12/12/2023 3:10 PM EDT documented in this encounter Nursing Notes * Madeline Crocker RN - 12/22/2023 4:47 PM EDT Goals: Patient will remain free [...] further needs. * Madeline Crocker RN - 12/22/2023 12:58 PM EDT Chair 5. IV inserted. Patient is here today with . Patient presents today for first cycle of chemotherapy. Patient was educated about establishing IV access, giving premeds, taking PRN home medications, process of getting medication from pharmacy, layout of treatment room, use of call blackburn, etc. Patient communicated understanding and denied any further questions, concerns, needs. Chemotherapy/Immunotherapy agents: TECENTRIQ, CARBOPLATIN, and ETOPOSIDE Consent for chemotherapy drug treatment complete, dated, and signed? yes, date - 12/12/2023 Treatment lab parameters met? Yes Has treatment weight changed > than 10%? No Treatment preauthorized? Yes VITALS Filed Vitals: 12/22/23 1220 BP: 142/85 Pulse: 89 Resp: 16 Temp: 37.1 C (98.8 F) TempSrc: Tympanic SpO2: 96% Weight: 84.6 kg (186 lb 9.6 oz) Urine protein: N/A Patient education completed [...] symptoms OTHER: denies any additional symptoms PAIN: 3-4 pain location : 3 -- R hip pain mainly, ongoing, but seems to improve and then comes back, she did take Ibuprofen today -- okay per Dr. Carrion for her to take today Safety and Risk for Injury Patient will remain free from injury. Ensure appropriate safety devices are available. Provide and maintain safe environment. documented in this encounter Plan of Treatment Upcoming Encounters Date Type Department Care Team (Late st Contact Info) Description 02/02/2024 12:30 PM EDT Laboratory Laboratory [facility] [place] [address] [facility] [place] [phone] [place], Lab [address] [facility] [place] [address] 02/02/2024 1:00 PM EDT Office Visit Hematology/Oncology [facility] [address] [place] [phone] Monica Ward MD [address] [place] [address] [place] [phone] 02/02/2024 1:30 PM EDT Hem/Onc Treatment Hematology/Oncology Treatment, [address] [phone] [place], Chair 7 Hem Onc [address] [place] [address] 02/03/2024 1:00 PM EDT Hem/Onc Treatment Hematology/Oncology Treatment, [address] [phone] [place], Chair 9 Hem Onc [address] [place] [address] 02/04/2024 1:30 PM EDT Hem/Onc Treatment Hematology/Oncology Treatment, [address] [phone] 02/06/2024 9:00 AM EDT Office Visit [address] [place] [phone] mAy Han PA-C [address] [place] [address] [place] [address] 07/14/2024 3:00 PM EST Office Visit Pulmonary Medicine, [facility] [address] [place] [address] Eloy Pond MD [address] [place] [address] 10/15/2024 8:40 AM EDT Office Visit Rheumatology [address] [place] [phone] Samy Russo MD [address] [facility] [place] [address] Health Maintenance Due Date Last Done Comments [...] mg, IV Piggyback, ONCE, 1 dose, On Fri12/22/23 at 1330, Administer over 60 Minutes, Administer first infusion over 60 minutes and if tolerated, subsequent doses may be infused over 30 minutes. Start Infusion 12/22/2023 1:50 PM EDT 1,200 mg 275 mL/hr CARBOplatin (Paraplatin) 483 mg in D5W 250 mL infusion 483 mg (rounded from 482.5 mg, Target AUC = 5), IV Piggyback, at 510 mL/hr Administer over 30 Minutes, PROTECT FROM LIGHT (Max Creatinine Clearance at 125 ml/min for calculating AUC dose), ONCE, 1 dose, On Fri12/22/23 at 1400 Start Infusion 12/22/2023 2:58 PM EDT 483 mg 510 mL/hr etoposide (VEPESID) 190 mg in NSS 500 mL infusion 190 mg (rounded from 193 mg = 100 mg/m2 1.93 m2 Treatment Plan BSA from Recorded weight), IV Piggyback, ONCE, 1 dose, On Fri12/22/23 at 1430, Administer over 60 Minutes, Recommended concentration is less than or equal to 0.4 mg/mL. If concentration is greater than 0.4 mg/mL recommend to administer through 0.22 micron low protein binding filter. Start Infusion 12/22/2023 3:33 PM EDT 190 mg 519.5 mL/hr Fosaprepitant Dimeglumine (Emend) 150 mg, ondansetron (Zofran) 16 mg, dexamethasone sodium phosphate 12 mg in NSS 250 mL Infusion 150 mg, IV Piggyback, ONCE, 1 dose, On Fri12/22/23 at 1345, Administer over 30 Minutes, Infuse over 30 minutes. Give 30 minutes prior to chemotherapy. Start Infusion 12/22/2023 12:48 PM EDT 150 mg 538.4 mL/hr hEParin 100 UNIT/ML Lock Flush inj 500 Units 500 Units (5 mL), IV Lock, PRN Other, IV Flush, Starting on Fri12/22/23 at 1244, Until Fri12/22/23 at 1923, For 24 hours, Do not flush if lock, PICC, or central line not in place; IV infusing or unable to flush. Given 12/22/2023 4:39 PM EDT 500 Units NSS infusion Intravenous, at 50 mL/hr, PRN, Starting on Fri12/22/23 at 1345, Until Fri12/22/23 at 1923, Maintenance line Start Infusion 12/22/2023 12:47 PM EDT 50 mL/hr sodium chloride 0.9 % flush central line 10 mL 10 mL, IV Push, PRN Other, IV Flush, Starting on Fri12/22/23 at 1244, Until Fri12/22/23 at 1923, For 24 hours, Do not flush if lock, PICC, or central line not in place; IV infusing or unable to flush. Given 12/22/2023 4:38 PM EDT 10 mL documented in this encounter Care Teams Product Managent Intern Relationship Specialty Start Date End Date Edel Clay MD [address] [place] [address] [place] [address] PCP - General Family Medicine 03/03/17 documented as of this encounter
--- OUTSIDE RECORDS SUMMARY | 2024-06-12 02:35 | External Medical Summary | Summary of Care ---
Author Name Unknown Organization [facility] Address [address] [place] [address] Phone [phone] Care Team Providers Care Implementation Manager Name Role Phone Edel Clay MD [...] PENDING TECENTRIQ & FULPHILA Monica Ward MD [address] [place] [address] [place] [phone] Anc Hem/Onc Scenery [place] [address] [place] [phone] Referral ID Status Reason Start Date Expiration Date V isits Requested Visits Authorized [id number] Authorized 12/17/2023 06/13/2024 999 999 Encounter Details Date Type Department Care Team (Latest Contact Info) Description 12/24/2023 12:30 PM EDT Hem/Onc Treatment Hematology/Oncolog y Treatment, [address] [phone] [place], Chair 9 Hem Onc Scenery [address] [place] [address] Encounter for antineoplastic chemotherapy*; Cancer, metastatic [...] positive rheumatoid factor ([facility]) TAKE 1 TABLET BY MOUTH [...] Castaneda or Kim Ríos, RN, CCRC at [phone] [facility] RESEARCH OTHER*[id number] 08/19/2006 11/06/2009 Overview: Renamed Per Clinical Trials Billing Project. Pt is a participant in the [facility] (Consortium of Rheumatology Researchers of [place]) national data collection study. For further information please call Dr Temo Castaneda or Kim Ríos, RN, CCRC at [phone] Arthritis, rheumatoid 07/01/20062016 Abnormal blood chemistry 05/02/2006 [...] Nursing Notes * Madeline Crocker RN - 12/24/2023 2:42 PM EDT [...] 12:30 PM EDT Laboratory Laboratory [facility] [place] Silvia Mortensen [facility] [place] [phone] Diana Mortensen [place] [address] [place] [address] [address] 02/02/2024 1:00 PM EDT Office Visit Hematology/Oncology [place] Silvia Sunshine [facility] [place] [address] [address] [phone] Monica Ward MD [address] [place] [address] [place] [phone] 02/02/2024 1:30 PM EDT Hem/Onc Treatment Hematology/Oncology Treatment, [place] [address] [facility], [place] [phone] [place], Chair 7 Hem Onc [address] [place] [address] 02/03/2024 1:00 PM EDT Hem/Onc Treatment Hematology/Oncology Treatment, [address] [phone] [place], Chair 9 [facility] [address] [place] [address] [place] [address] 02/04/2024 1:30 PM EDT Hem/Onc Treatment Hematology/Oncology Treatment, [address], [place] [phone] 02/06/2024 9:00 AM EDT Office Visit Family Medicine [address] [place] [phone] Amy Han PA-C [address] [place] [address] [place] [address] 07/14/2024 3:00 PM EST Office Visit Pulmonary Medicine, [address] [place] [address] Eloy Pond MD [address] [place] [facility] [place] [address] 10/15/2024 8:40 AM EDT Office Visit Rheumatology [address] [place] [phone] Samy Russo MD [address] [facility] [place] [address] Health Maintenance Due Date Last Done Comments [...] mL/hr documented in this encounter Care Teams Implementation Manager Relationship Specialty Start Date End Date Edel Clay MD [address] [place] [address] [place] [address] PCP - General Family Medicine 03/03/17 documented as of this encounter
--- OUTSIDE RECORDS SUMMARY | 2024-06-12 02:35 | External Medical Summary | Summary of Care ---
Author Name Unknown Organization [facility] Address [address] [place] [address] Phone [phone] Care Team Providers Care Diesel Engine I Pipe Fitter Name Role Phone Edel Clay MD Primary Care Provide r Reason for Visit * Reason Comments Treatment * Episode Based Medications (Routine) - Authorized Specialty Diagnoses / Procedures Referred By Contac t Referred To Contact Diagnoses Encounter for antineoplastic chemotherapy Cancer, metastatic to bone (HCC) Metastatic adenocarcinoma to liver (HCC) Small cell lung cancer, right (HCC) Procedures PENDING TECENTRIQ & Monica Anderson MD [address] [place] [address] [place] [phone] Anc Hem/Onc [facility] [address] [address] Referral ID Status Reason Start Date Expiration Date V isits Requested Visits Authorized [id number] Authorized 12/17/2023 06/13/2024 999 999 Encounter Details Date Type Department Care Team (Latest Contact Info) Description 12/23/2023 9:30 AM EDT Hem/Onc Treatment Hematology/Oncolog y Treatment, [address] [address] Encounter for antineoplastic chemotherapy*; Cancer, [...] MG Oral Tablet (Compazine)Indicat ions:Encounter for antineoplastic chemotherapy,Nancy r, metastatic to bone (HCC),Metastatic adenocarcinoma to [...] 12/23/19 24 OLANZapine 10 MG Oral Tablet (zyPREXA)Tinoo ns:Encounter [...] Thyroiditis 07/18/2008 06/01/2019 Overview: thyroglobulin antibody >3000 [id number] 08/19/200608/10 Overview: Renamed Per Clinical Trials Billing Project. Pt is a participant in the [facility] (Consortium of Rheumatology Researchers of [place]) national data collection study. For further information please call Dr Temo Castaneda or Kim Ríos, RN, CCRC at [phone] [facility] RESEARCH OTHER*[id number] 08/19/2006 11/06/2009 Overview: Renamed Per Clinical Trials Billing Project. Pt is a participant in the [facility] (Consortium of Rheumatology Researchers of [place]) national data collection study. For further information please call Dr Temo Castaneda or Kim Ríos, RN, CCRC at [phone] Arthritis, rheumatoid 07/01/20062016 Abnormal blood chemistry 05/02/2006 Overview: positive rheumatoid factor. Metabolic syndrome 04/29/2006 0 Overview: insulin level 16 Mixed dyslipidemia 02/06/2006 12//200 9 Overview: Per Lipid Taxonomy. chol 192, [...] Sign Reading Time Taken Comments Blood Pressure 150/77 12/23/2023 9:38 AM EDT Pulse 82 12/23/2023 9:38 AM EDT Temperature 36.7 C (98.1 F) 12/23/2023 9:38 AM ED T Respiratory Rate 18 12/23/2023 9:38 AM EDT Oxygen Saturation - - Inhaled Oxygen Concentration - - Weight - - Height - - Body Mass Index - - documented in this encounter Nursing Notes * Shiela Stanton, NORM - 12/23/2023 11:17 AM EDT Chemotherapy/Immunotherapy agents: ETOPOSIDE Consent for chemotherapy drug treatment complete, dated, and signed? yes, date - 12/12/23 Treatment lab parameters met? Yes Has treatment weight changed > than 10%? No Treatment preauthorized? Yes VITALS Filed Vitals: 12/23/23 0938 BP: 150/77 Pulse: 82 Resp: 18 Temp: 36.7 C (98.1 F) TempSrc: Tympanic Urine protein: N/A Patient education completed for [...] OTHER: denies any additional symptoms PAIN: 0 Patient instructed on use of heat and massage functions where applicable. Patient shown how to operate the heat function of the chair and to alert nursing staff if the chair feels too warm. Patient instructed on the risk of potential aburto while using the heat function. * Shiela Stanton RN - 12/23/2023 10:38 AM EDT Safety and Risk for Injury Patient will remain free from injury. Ensure appropriate safety devices are available. Provide and maintain safe environment. Functional status at today's visit: Fully active, [...] symptoms or adverse side effects during treatment. Goals: Patient here for day 2 Etoposide. Possible barriers to meeting goals: IV pole. Stability of the patient: Moderately stable - low risk of patient condition declining or worsening Summary regarding today's goals: Met: Patient received treatment without any issues. Patient instructed on use of heat and [...] 12:30 PM EDT Laboratory Laboratory Dominic Mortensen [place] [address] [place] [phone] Diana Mortensen [place] [address] [facility] [place], [place] [address] 02/02/2024 1:00 PM EDT Office Visit Hematology/Oncology [facility] [address] [place] [phone] Monica Ward MD [address] [place] [address] [place] [phone] 02/02/2024 1:30 PM EDT Hem/Onc Treatment Hematology/Oncology Treatment, [address], [place] [phone] [place], Chair 7 Hem Onc [address] [place] [address] 02/03/2024 1:00 PM EDT Hem/Onc Treatment Hematology/Oncology Treatment, [address], [place] [phone] [place], Chair 9 Hem Onc [address] [place], [place] [address] 02/04/2024 1:30 PM EDT Hem/Onc Treatment Hematology/Oncology Treatment, [address], [place] [phone] 02/06/2024 9:00 AM EDT Office Visit Family Medicine [address] [place] [phone] Amy Han PA-C [address] [place] [address] [place] [address] 07/14/2024 3:00 PM EST Office Visit Pulmonary Medicine, [facility] [address] [facility] [place] [address] Eloy Pond MD [address] [facility] [place] [address] 10/15/2024 8:40 AM EDT Office Visit Rheumatology [address] [place] [phone] Samy Russo MD [address] [facility] [place] [address] Health Maintenance Due Date Last Done Comments [...] weight), IV Piggyback, ONCE, 1 dose, On Fri12/23/23 at 1115, Administer over 60 Minutes, Recommended concentration is less than or equal to 0.4 mg/mL. If concentration is greater than 0.4 mg/mL recommend to administer through 0.22 micron low protein binding filter. Start Infusion 12/23/2023 9:50 AM EDT 190 mg 519.5 mL/hr NSS infusion Intravenous, at 50 mL/hr, PRN, Starting on Fri12/23/23 at 1045, Until Fri12/23/23 at 1520, Maintenance line Start Infusion 12/23/2023 9:49 AM EDT 50 mL/hr ondansetron (Zofran) tab 8 mg 8 mg, Oral, ONCE, On Fri12/23/23 at 1045, For 1 dose, Give 30 minutes prior to chemotherapy. Given 12/23/2023 9:50 AM EDT 8 mg sodium chloride 0.9 % flush central line 10 mL 10 mL, IV Push, PRN Other, IV Flush, Starting on Fri12/23/23 at 0941, Until Fri12/23/23 at 1520, For 24 hours, Do not flush if lock, PICC, or central line not in place; IV infusing or unable to flush. Given 12/23/2023 11:05 AM EDT 10 mL documented in this encounter Care Teams Diesel Engine I Pipe Fitter Relationship Specialty Start Date End Date Edel Clay MD [address] [place] [address] [place] [phone] PCP - General Family Medicine 03/03/17 documented as of this encounter
--- OUTSIDE RECORDS SUMMARY | 2024-06-12 02:36 | External Medical Summary | Summary of Care ---
Author Name Unknown Organization [facility] Address [address] [place] [address] Phone [phone] Care Team Providers Care Corporate Real Estate Manager Name Role Phone Edel Clay MD [...] PENDING TECENTRIQ & HALEIGHPHILA Monica Ward MD [address] [place] [address] [place] [phone] Anc Hem/Onc [address] [address] Referral ID Status Reason Start Date Expiration Date V isits Requested Visits Authorized [id number] Authorized 12/17/2023 06/13/2024 999 999 Encounter Details Date Type Department Care Team (Latest Contact Info) Description 12/22/2023 12:00 PM EDT Hem/Onc Treatment Hematology/Oncolog y Treatment, [address] [phone] [place], Chair 3 Hem Onc [address] [place] [address] Encounter for antineoplastic chemotherapy*; Cancer, metastatic [...] Thyroiditis 07/18/2008 06/01/2019 Overview: thyroglobulin antibody >3000 [id number] 08/19/200608/10 Overview: Renamed Per Clinical Trials Billing Project. Pt is a participant in the [facility] (Consortium of Rheumatology Researchers of [place]) national data collection study. For further information please call Dr Temo Castaneda or Kim Ríos, RN, CCRC at [phone] [facility] RESEARCH OTHER*[id number] 08/19/2006 11/06/2009 Overview: Renamed Per Clinical Trials Billing Project. Pt is a participant in the [facility] (Consortium of Rheumatology Researchers of [facility]) national data collection study. For further information please call Dr Temo Castaneda or Kim Ríos, RN, CCRC at [phone] Arthritis, rheumatoid 07/01/20062016 Abnormal blood chemistry 05/02/2006 [...] Description 02/02/2024 12:30 PM EDT Laboratory Laboratory [facility] [place] [address] [facility] [place] [phone] [place], Lab [address] [facility] [place] [address] 02/02/2024 1:00 PM EDT Office Visit Hematology/Oncology [facility] [address] [place] [phone] Monica Ward MD [address] [place] [address] [place] [phone] 02/02/2024 1:30 PM EDT Hem/Onc Treatment Hematology/Oncology Treatment, [address] [phone] [place], Chair 7 Hem Onc [address] [place] [address] 02/03/2024 1:00 PM EDT Hem/Onc Treatment Hematology/Oncology Treatment, [address] [phone] [place], Chair 9 Hem Onc [address] [place] [address] 02/04/2024 1:30 PM EDT Hem/Onc Treatment Hematology/Oncology Treatment, [address] [phone] 02/06/2024 9:00 AM EDT Office Visit [address] [place] [phone] Amy Han PA-C [address] [place] [address] [place] [address] 07/14/2024 3:00 PM EST Office Visit Pulmonary Medicine, [facility] [address] [place] [address] Eloy Pond MD [address] [place] [address] 10/15/2024 8:40 AM EDT Office Visit Rheumatology [address] [place] [phone] Samy Russo MD [address] [facility] [place] [address] Health Maintenance Due Date Last Done Comments [...] documented in this encounter Care Teams Corporate Real Estate Manager Relationship Specialty Start Date End Date Edel Clay MD [address] [place] [address] [place] [address] PCP - General Family Medicine 03/03/17 documented as of this encounter
--- OUTSIDE RECORDS SUMMARY | 2024-06-12 02:36 | External Medical Summary | Summary of Care ---
Author Name Unknown Organization [facility] Address [address] [place] [address] Phone [phone] Care Team Providers Care Shipping Track Supervisor Name Role Phone Edel Clay MD [...] TECENTRIQ & HALEIGHPHILA Monica Ward MD [address] [place] [address] [place] [phone] Anc Hem/Onc [address] [address] Referral ID Status Reason Start Date Expiration Date V isits Requested Visits Authorized [id number] Authorized 12/17/2023 06/13/[phone] Encounter Details Date Type Department Care Team (Latest Contact Info) Description 12/22/2023 12:00 PM EDT Hem/Onc Treatment Hematology/Oncolog y Treatment, [address] [address] [place], Chair 3 Hem Onc [address] [place] [address] Encounter for antineoplastic chemotherapy*; Cancer, metastatic [...] Thyroiditis 07/18/2008 06/01/2019 Overview: thyroglobulin antibody >3000 [id number]-[facility] 08/19/200608/10 Overview: Renamed Per Clinical Trials Billing Project. Pt is a participant in the [facility] (Consortium of Rheumatology Researchers of [place]) national data collection study. For further information please call Dr Temo Castaneda or Kim Ríos, RN, CCRC at [phone] [facility] RESEARCH OTHER*[id number] 08/19/2006 11/06/2009 Overview: Renamed Per Clinical Trials Billing Project. Pt is a participant in the [facility] (Consortium of Rheumatology Researchers of [facility]) national data collection study. For further information please call Dr Temo Castaneda or Kim Ríos, RN, CCRC at [phone] Arthritis, rheumatoid 07/01/20062016 Abnormal blood chemistry 05/02/2006 [...] 02/02/2024 12:30 PM EDT Laboratory Laboratory [facility] [place] 200 [facility] [place] [phone] [place], Lab [address] [facility] [place] [address] 02/02/2024 1:00 PM EDT Office Visit Hematology/Oncology [facility] [address] [place] [phone] Monica Ward MD [address] [place] [address] [place] [phone] 02/02/2024 1:30 PM EDT Hem/Onc Treatment Hematology/Oncology Treatment, [address] [phone] [place], Chair 7 Hem Onc [address] [place] [address] 02/03/2024 1:00 PM EDT Hem/Onc Treatment Hematology/Oncology Treatment, [address] [phone] [place], Chair 9 Hem Onc [address] [place] [address] 02/04/2024 1:30 PM EDT Hem/Onc Treatment Hematology/Oncology Treatment, [address] [phone] 02/06/2024 9:00 AM EDT Office Visit [address] [place] [phone] Amy Han PA-C [address] [place] [address] [place] [address] 07/14/2024 3:00 PM EST Office Visit Pulmonary Medicine, [facility] [address] [place] [address] Eloy Pond MD [address] [place] [address] 10/15/2024 8:40 AM EDT Office Visit Rheumatology [address] [place] [address] Samy Russo MD 9788 [facility] [place] [address] Health Maintenance Due Date Last Done Comments [...] mL documented in this encounter Care Teams Shipping Track Supervisor Relationship Specialty Start Date End Date Edel Clay MD [address] [place] [address] [place] [address] PCP - General Family Medicine 03/03/17 documented as of this encounter
--- OUTSIDE RECORDS SUMMARY | 2024-06-12 02:36 | External Medical Summary | Summary of Care ---
Author Name Unknown Organization [facility] Address [address] [place] [address] Phone [phone] Care Team Providers Care Continuous Yarn Dyeing Machine Operator Name Role Phone Edel Clay [...] PENDING TECENTRIQ & HALEIGHPHILA Monica Ward MD [address] [place] [address] [place] [address] Anc Hem/Onc [address] [address] Referral ID Status Reason Start Date Expiration Date V isits Requested Visits Authorized [id number] Authorized 12/17/2023 06/13/2024 999 999 Encounter Details Date Type Department Care Team (Latest Contact Info) Description 12/22/2023 12:00 PM EDT Hem/Onc Treatment Hematology/Oncolog y Treatment, [address] [address] [place], Chair 3 Hem Onc [address] [place] [address] Encounter for antineoplastic chemotherapy*; [...] Thyroiditis 07/18/2008 06/01/2019 Overview: thyroglobulin antibody >3000 [id number]-[facility] 08/19/200608/10 Overview: Renamed Per Clinical Trials Billing Project. Pt is a participant in the [facility] (Consortium of Rheumatology Researchers of [place]) national data collection study. For further information please call Dr Temo Castaneda or Kim Ríos, RN, CCRC at [phone] [facility] RESEARCH OTHER*[id number] 08/19/2006 11/06/2009 Overview: Renamed Per Clinical Trials Billing Project. Pt is a participant in the [facility] (Consortium of Rheumatology Researchers of [facility]) national data collection study. For further information please call Dr Temo Castaneda or Kim Ríos, RN, CCRC at [phone] Arthritis, rheumatoid 07/01/20062016 Abnormal blood chemistry 05/02/2006 [...] 02/02/2024 12:30 PM EDT Laboratory Laboratory [facility] [place] 200 [facility] [place] [phone] [place], Lab [address] COUNT INCLUDES [facility] [place] [address] 02/02/2024 1:00 PM EDT Office Visit Hematology/Oncology [facility] [address] [place] [phone] Monica Ward MD [address] [place] [address] [place] [phone] 02/02/2024 1:30 PM EDT Hem/Onc Treatment Hematology/Oncology Treatment, [address] [phone] [place], Chair 7 Hem Onc [address] [place] [address] 02/03/2024 1:00 PM EDT Hem/Onc Treatment Hematology/Oncology Treatment, [address] [phone] [place], Chair 9 Hem Onc [address] [place] [address] 02/04/2024 1:30 PM EDT Hem/Onc Treatment Hematology/Oncology Treatment, [address] [phone] 02/06/2024 9:00 AM EDT Office Visit [address] [place] [phone] Amy Han PA-C [address] [place] [address] [place] [address] 07/14/2024 3:00 PM EST Office Visit Pulmonary Medicine, [facility] [address] [place] [address] Eloy Pond MD [address] [place] [address] 10/15/2024 8:40 AM EDT Office Visit Rheumatology [address] [place] [address] Samy Russo MD 3759 [facility] [place] [address] Health Maintenance Due Date Last Done Comments [...] mL documented in this encounter Care Teams Continuous Yarn Dyeing Machine Operator Relationship Specialty Start Date End Date Edel Clay MD [address] [place] [address] [place] [address] PCP - General Family Medicine 03/03/17 documented as of this encounter
--- OUTSIDE RECORDS SUMMARY | 2024-06-12 02:36 | External Medical Summary | Summary of Care ---
Author Name Unknown Organization [facility] Address [address] [place] [address] Phone [phone] Care Team Providers Care Distilling Department Supervisor Name Role Phone Edel Clay [...] PENDING TECENTRIQ & HALEIGHPHILA Monica Ward MD [address] [place] [address] [place] [address] Anc Hem/Onc [address] [address] Referral ID Status Reason Start Date Expiration Date V isits Requested Visits Authorized [id number] Authorized 12/17/2023 06/13/2024 999 999 Encounter Details Date Type Department Care Team (Latest Contact Info) Description 12/22/2023 12:00 PM EDT Hem/Onc Treatment Hematology/Oncolog y Treatment, [address] [address] [place], Chair 3 Hem Onc [address] [place] [address] Encounter for antineoplastic chemotherapy*; [...] Thyroiditis 07/18/2008 06/01/2019 Overview: thyroglobulin antibody >3000 [id number]-[facility] 08/19/200608/10 Overview: Renamed Per Clinical Trials Billing Project. Pt is a participant in the [facility] (Consortium of Rheumatology Researchers of [place]) national data collection study. For further information please call Dr Temo Castaneda or Kim Ríos, RN, CCRC at [phone] [facility] RESEARCH OTHER*[id number] 08/19/2006 11/06/2009 Overview: Renamed Per Clinical Trials Billing Project. Pt is a participant in the [facility] (Consortium of Rheumatology Researchers of [facility]) national data collection study. For further information please call Dr Temo Castaneda or Kim Ríos, RN, CCRC at [phone] Arthritis, rheumatoid 07/01/20062016 Abnormal blood chemistry 05/02/2006 [...] Description 02/02/2024 12:30 PM EDT Laboratory Laboratory [facility] [place] 200 [facility] [place] [phone] [place], Lab [address] [facility] [place] [address] 02/02/2024 1:00 PM EDT Office Visit Hematology/Oncology [facility] [address] [place] [phone] Monica Ward MD [address] [place] [address] [place] [phone] 02/02/2024 1:30 PM EDT Hem/Onc Treatment Hematology/Oncology Treatment, [address] [phone] [place], Chair 7 Hem Onc [address] [place] [place] [address] 02/03/2024 1:00 PM EDT Hem/Onc Treatment Hematology/Oncology Treatment, [address] [phone] [place], Chair 9 Hem Onc [address] [place] [address] 02/04/2024 1:30 PM EDT Hem/Onc Treatment Hematology/Oncology Treatment, [address] [phone] 02/06/2024 9:00 AM EDT Office Visit [address] [place] [phone] Amy Han PA-C [address] [place] [address] [place] [address] 07/14/2024 3:00 PM EST Office Visit Pulmonary Medicine, [facility] [address] [place] [address] Eloy Pond MD [address] [place] [address] 10/15/2024 8:40 AM EDT Office Visit Rheumatology [address] [place] [address] Samy Russo MD 1094 [facility] [place] [address] Health Maintenance Due Date Last Done Comments [...] mL documented in this encounter Care Teams Distilling Department Supervisor Relationship Specialty Start Date End Date Edel Clay MD [address] [place] [address] [place] [address] PCP - General Family Medicine 03/03/17 documented as of this encounter
--- OUTSIDE RECORDS SUMMARY | 2024-06-12 02:37 | External Medical Summary | Summary of Care ---
Author Name Unknown Organization [facility] Address [address] [place] [address] Phone [phone] Care Team Providers Care Warehouse Manager Name Role Phone Edel Clay MD Primary Care Provide r Reason for Visit * Reason Comments Follow Up Treatment Encounter Details Date Type Department Care Team (Late st Contact Info) Description 01/14/2024 2:00 PM EDT Office Visit Hematology/Oncology [facility] [address] [place] [address] Maddie Suarez CRNP [address] [place] [address] Cancer, metastatic to bone (HCC)*; [...] as of this encounter (statuses as of 01/15/2024) Medications Medication Sig Dispensed Refills Start Date [...] needed for Pain, Severe. 60 Tablet 12/22/2023 Active Hospital, Clinic, or Other Facility Administered [...] as of this encounter (statuses as of 01/15/2024) Active Problems Problem Noted Date Diagnosed Date [...] as of this encounter (statuses as of 01/15/2024) Resolved Problems Problem Noted Date Diagnosed Date [...] Thyroiditis 07/18/2008 06/01/2019 Overview: thyroglobulin antibody >3000 [id number]-[facility] 08/19/200608/10 Overview: Renamed Per Clinical Trials Billing Project. Pt is a participant in the [facility] (Consortium of Rheumatology Researchers of [place]) national data collection study. For further information please call Dr Temo Castaneda or Kim Ríos, RN, CCRC at [phone] [facility] RESEARCH OTHER*[id number] 08/19/2006 11/06/2009 Overview: Renamed Per Clinical Trials Billing Project. Pt is a participant in the [facility] (Consortium of Rheumatology Researchers of [place]) national data collection study. For further information please call Dr Temo Castaneda or Kim Ríos, RN, CCRC at [phone] Arthritis, rheumatoid 07/01/20062016 Abnormal blood chemistry 05/02/2006 Overview: positive rheumatoid factor. Metabolic syndrome 04/29/2006 0 Overview: insulin level 16 Mixed dyslipidemia 02/06/2006 9 Overview: Per Lipid Taxonomy. chol 192, hdl 26, trig 403 Allergic rhinitis due to pollen 01/30/2006 03/03/2017 Obesity, BMI not known 08/07 Overview: Per Obesity Taxonomy Denture irritation 0 documented as of this encounter (statuses as of 01/15/2024) Immunizations Name Administration Dates Next Due COVID-19 [...] Hematology/Oncology Outpatient [place] [place] [address] Name: Alfredo Torrez Date: 01/14/2024 CHIEF COMPLAINT: [...] axis. Multiple liver lesions, concerning for metastases, training representative lesion in the posterior right hepatic lobe measures 3.7 x 2.6 cm. 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, currently smoking [...] performed by Jimmy Fine MD at OR [facility] INSER TUNN ACC DEV;5 YRS/OLDER Right 12/31/2023 INSERT TUNNELED CENTRAL VENOUS ACCESS WITH SUBQ PORT performed by Sin Burroughs MD at OR [facility] MAMMOGRAM SCREENING-BILATERAL 09/09/2007 heterogeneously dense, category 0 REMOVE GALLBLADDER 01/03/2012 Dr Gomez- [facility] US - BREAST(S) 09/23/2007 left breast category 4, FNA suggested US HEAD AND NECK 07/21/2008 mildly enlarged right thyroid, consistent with multinodular goiter US HEAD AND NECK 06/30/2012 asymmetric thyromegaly Social History Socioeconomic History Marital status: Spouse name: Margarito Number of children: 1 Years of education: Not on file Highest education level: Not on file Occupational History Employer: [employer] Tobacco Use Smoking status: Former Current packs/day: [...] other meds) 90 Tablet 3 Magic Swizzle (Lfcxsxyid-Gragoxay-Uydudi) oral solution Swish and spit 15 mL [...] axis. Multiple liver lesions, concerning for metastases, training representative lesion in the posterior right hepatic [...] approximately 90%. 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 [email or web address] is a way you can talk to [...] Care Team (Late st Contact Info) Description 01/16/2024 4:00 PM EDT Immunization/Injecti on Hematology/Oncology Treatment, [address] [address] [place], Chair 2 Hem Onc [address] [address] 02/02/2024 12:30 PM EDT Laboratory Laboratory [facility] [place] [address] [place] [phone] [place], Lab [facility] 200 [facility] COUNTS INCLUDE 234 [facility] AT [facility] [place] [address] 02/02/2024 1:00 PM EDT Office Visit Hematology/Oncology [facility] [place] 200 [facility] [place] [phone] Monica Ward MD [address] [place] [address] [place] [address] 02/02/2024 1:30 PM EDT Hem/Onc Treatment Hematology/Oncology Treatment, [address], [place] [phone] [place], Chair 11 Hem Onc [address] [place] [address] 02/03/2024 1:00 PM EDT Hem/Onc Treatment Hematology/Oncology Treatment, [address], [place] [phone] [place], Chair 9 Hem Onc [address] [place], [place] [address] 02/04/2024 1:30 PM EDT Hem/Onc Treatment Hematology/Oncology Treatment, [address], [place] [phone] 02/06/2024 9:00 AM EDT Office Visit Family Medicine [address] [place] [phone] Amy Han PA-C [address] [place] [address] [place] [address] 07/14/2024 3:00 PM EST Office Visit Pulmonary Medicine, [facility] [address] [place] [address] Eloy Pond MD [address] [place] [address] 10/15/2024 8:40 AM EDT Office Visit Rheumatology [address] [place] [address] Samy Russo MD [address] [facility] [place], [place] [address] Health Maintenance Due Date Last Done Comments [...] this encounter Medical Devices Implanted Type Area Intake Clerk Device Identifier Shelf Expiration Date Model / Serial / Lot Port Implant W8f Poly Cath - [id number] Implanted:Qty : 1 on 12/31/2023 by Sin Burroughs MD at OR [facility] Right: Chest CR BARD : PERIPHERAL VASCULAR [id number] 10/09/2024 [id number] / / [id number] documented as of this encounter Visit Diagnoses Diagnosis Cancer, metastatic to bone (HCC)- Primary Secondary malignant neoplasm of bone and bone marrow Small cell lung cancer, right (HCC) Metastatic adenocarcinoma to liver (HCC) Secondary malignant neoplasm of liver Drug-related hair loss Other alopecia documented in this encounter Care Teams Warehouse Manager Relationship Specialty Start Date End Date Edel Clay MD [address] [place] [address] [place] [phone] PCP - General Family Medicine 03/03/17 documented as of this encounter
--- OUTSIDE RECORDS SUMMARY | 2024-06-12 02:37 | External Medical Summary | Summary of Care ---
Author Name Unknown Organization [facility] Address [address] [place] [address] Phone [phone] Care Team Providers Care Health Care Legal Assistant Name Role Phone Edel Clay MD [...] TECENTRIQ & FULPHILA Monica Ward MD [address] [place], [place] [address] [phone] Anc Hem/Onc Scenery [address] [address] Referral ID Status Reason Start Date Expiration Date V isits Requested Visits Authorized [id number] Authorized 12/17/2023 06/13/2024 999 999 Encounter Details Date Type Department Care Team (Latest Contact Info) Description 01/16/2024 4:00 PM EDT Immunization/ Injection Hematology/Oncology Treatment, [address] [address] [place], Chair 2 Hem Onc [address] [address] Encounter for antineoplastic chemotherapy*; Cancer, [...] as of this encounter (statuses as of 01/16/2024) Medications Medication Sig Dispensed Refills Start Date [...] as of this encounter (statuses as of 01/16/2024) Active Problems Problem Noted Date Diagnosed Date [...] as of this encounter (statuses as of 01/16/2024) Resolved Problems Problem Noted Date Diagnosed Date [...] Thyroiditis 07/18/2008 06/01/2019 Overview: thyroglobulin antibody >3000 [id number]-[facility] 08/19/200608/10 Overview: Renamed Per Clinical Trials Billing Project. Pt is a participant in the [facility] (Consortium of Rheumatology Researchers of [place]) national data collection study. For further information please call Dr Temo Castaneda or Kim Ríos, RN, CCRC at [phone] [facility] RESEARCH OTHER*[id number] 08/19/2006 11/06/2009 Overview: Renamed Per Clinical Trials Billing Project. Pt is a participant in the [facility] (Consortium of Rheumatology Researchers of [place]) national data collection study. For further information please call Dr Temo Castaneda or Kim Ríos, RN, CCRC at [phone] Arthritis, rheumatoid 07/01/20062016 Abnormal blood chemistry 05/02/2006 Overview: positive rheumatoid factor. Metabolic syndrome 04/29/2006 0 Overview: insulin level 16 Mixed dyslipidemia 02/06/2006 9 Overview: Per Lipid Taxonomy. chol 192, hdl 26, trig 403 Allergic rhinitis due to pollen 01/30/2006 03/03/2017 Obesity, BMI not known 08/07 Overview: Per Obesity Taxonomy Denture irritation 0 documented as of this encounter (statuses as of 01/16/2024) Immunizations Name Administration Dates Next Due COVID-19 [...] [place] LPN - 01/16/2024 4:00 PM EDT Deborahphila 6mg adminstered SQ into the left upper extremity per standing order. documented in this encounter Plan of Treatment Upcoming Encounters Date Type Department Care Team (Late st Contact Info) Description 02/02/2024 12:30 PM EDT Laboratory Laboratory [facility] [place] [address] [place] [phone] Diana Mortensen [facility] 200 [facility] [place] [address] 02/02/2024 1:00 PM EDT Office Visit Hematology/Oncology [facility] [place] 200 [facility] [place] [phone] Monica Ward MD [address] [place] [address] [place] [address] 02/02/2024 1:30 PM EDT Hem/Onc Treatment Hematology/Oncology Treatment, [address] [phone] [place], Chair 7 Hem Onc [address] [place] [address] 02/03/2024 1:00 PM EDT Hem/Onc Treatment Hematology/Oncology Treatment, [address] [place] [phone] [place], Chair 9 Hem Onc [facility] [address] [place] [address] [place] [address] 02/04/2024 1:30 PM EDT Hem/Onc Treatment Hematology/Oncology Treatment, [address] [phone] 02/06/2024 9:00 AM EDT Office Visit Family Medicine [address] [place] [phone] Amy Han PA-C [address] [place] [address] [place] [address] 07/14/2024 3:00 PM EST Office Visit Pulmonary Medicine, [address] [place] [address] Eloy Pond MD [address] [facility] [place] [address] 10/15/2024 8:40 AM EDT Office Visit Rheumatology [address] [place] [phone] Samy Russo MD 14[address] [facility] [place] [address] Health Maintenance Due Date Last Done Comments [...] this encounter Medical Devices Implanted Type Area Relations Manager Device Identifier Shelf Expiration Date Model / Serial / Lot Port Implant W8f Poly Cath - [id number] Implanted:Qty : 1 on 12/31/2023 by Sin Burroughs MD at OR [facility] Right: Chest CR BARD : PERIPHERAL VASCULAR [id number] 10/09/2024 [id number] / / [id number] documented as of this encounter Visit Diagnoses [...] Upper documented in this encounter Care Teams Health Care Legal Assistant Relationship Specialty Start Date End Date Edel Clay MD [address] [place] [address] [place] [address] PCP - General Family Medicine 03/03/17 documented as of this encounter
--- OUTSIDE RECORDS SUMMARY | 2024-06-12 02:37 | External Medical Summary | Summary of Care ---
Author Name Unknown Organization [facility] Address [address] [place] [address] Phone [phone] Care Team Providers Care Payment Rep Name Role Phone Edel Clay MD Primary Care Provide r Reason for Visit * Reason Comments Pulmonary Function Test PFT with broncho dilator Encounter Details Date Type Department Care Team (Latest Contact Info) Description 01/15/2024 2:30 PM EDT PulmDiagnostic Pulmonary Function Lab, [facility] [address] [place] [address] [place], Pft [address] [place] [address] Rheumatoid arthritis involving multiple sites with positive rheumatoid factor (HCC)*; Mass of right lung Allergies Active Allergy Reactions Criticality Noted Date [...] 24HR) NASACORT ALLERGY 24HR 55 MCG/ACT AERO Active Methotrexate Sodium 2.5 MG Oral Tablet [...] Thyroiditis 07/18/2008 06/01/2019 Overview: thyroglobulin antibody >3000 [id number] 08/19/200608/10 Overview: Renamed Per Clinical Trials Billing Project. Pt is a participant in the [facility] (Consortium of Rheumatology Researchers of [place]) national data collection study. For further information please call Dr Temo Castaneda or Kim Ríos, RN, CCRC at [phone] [facility] RESEARCH OTHER*[id number] 08/19/2006 11/06/2009 Overview: Renamed Per Clinical Trials Billing Project. Pt is a participant in the [facility] (Consortium of Rheumatology Researchers of [place]) national data collection study. For further information please call Dr Temo Castaneda or Kim Ríos, RN, CCRC at [phone] Arthritis, rheumatoid 07/01/20062016 Abnormal blood chemistry 05/02/2006 [...] Pressure - - Pulse - - Temperature - - Respiratory Rate - - Oxygen Saturation - - Inhaled Oxygen Concentration - - Weight 87.3 kg (192 lb 7.4 oz) 01/15/2024 2:50 P M EDT Height 160.5 cm (5' 3.19") 01/15/2024 2:50 PM ED T Body Mass Index 33.89 01/15/2024 2:50 PM EDT documented in this encounter Nursing Notes * Armando Retana, MAYELA - 01/15/2024 3:07 PM EDT Alfredo Torrez was identified by name, Date of : (1965), and . Vitals were obtained for testing. Body mass index is 33.89 kg/m. Pt has a 1 ppd for 28 years smoking history and quit 12/04/23. 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 Spirometry, DLCO, RAW, and TGV performed. A slow volume nebulizer treatment of 0.5ml of albuterol in 3 ml of NSS was given. The proper method of use, as well asanticipated side effects, of this svn are discussed and demonstrated to the patient. Patient demonstrates adequate delivery. Administrations This Visit Albuterol Sulfate (Proventil) (2.5 MG/3ML) 0.083% inhalation solution 2.5 mg Admin Date 01/15/2024 Action Given Dose 2.5 mg Route Nebulizer Documented By Armando Retana RRT documented in this encounter Plan of Treatment Upcoming Encounters Date Type Department Care Team (Late st Contact Info) Description 01/15/2024 3:40 PM EDT Office Visit Pulmonary Medicine, [facility] [address] [facility] [place] [phone] Eloy Pond MD [address] [place] [address] Arrived 01/16/2024 4:00 PM EDT Immunization/Injecti on Hematology/Oncology Treatment, [address], [place] [phone] [place], Chair 2 Hem On[address] [place] [address] 02/02/2024 12:30 PM EDT Laboratory Laboratory [address] [place] [phone] [place], Lab [address] [place] [address] 02/02/2024 1:00 PM EDT Office Visit Hematology/Oncology [address] [place] [phone] Monica Ward MD [address] [place] [phone] 02/02/2024 1:30 PM EDT Hem/Onc Treatment Hematology/[address], [address] [address] [place], Chair 11 Hem Onc Scenery 200 [facility] [place], [place] [address] 02/03/2024 1:00 PM EDT Hem/Onc Treatment Hematology/Oncology Treatment, [place] 200 [facility], [place] [phone] [place], Chair 9 Hem Onc Scenery 200 [facility] [place], [place] [address] 02/04/2024 1:30 PM EDT Hem/Onc Treatment Hematology/Oncology Treatment, [place] 200 [facility], [place] [phone] 02/06/2024 9:00 AM EDT Office Visit Family Medicine [address] [place] [phone] Amy Han PA-C [address] [place] [address] [place] [address] 10/15/2024 8:40 AM EDT Office Visit Rheumatology [address] [place] [phone] Samy Russo MD [address] [place] [address] [place], [place] [address] Health Maintenance Due Date Last Done Comments [...] this encounter Medical Devices Implanted Type Area Display Associate Device Identifier Shelf Expiration Date Model / Serial / Lot Port Implant W8f Poly Cath - [id number] Implanted:Qty : 1 on 12/31/2023 by Sin Burroughs MD at OR [facility] Right: Chest CR BARD : PERIPHERAL VASCULAR [id number] 10/09/2024 [id number] / / [id number] documented as of this encounter Visit Diagnoses Diagnosis Rheumatoid arthritis involving multiple sites with positive rheumatoid factor (HCC)- Primary Mass of right lung documented in this encounter Administered Medications Active Administered Medications - up to 3 most recent administrations Medication Order MAR Action Action Date Dose Rate Site Albuterol Sulfate (Proventil) (2.5 MG/3ML) 0.083% inhalation solution 2.5 mg 2.5 mg, Nebulizer, PRN Other, Starting on Fri12/10/23 at 0825, Until Discontinued, Only one type of albuterol product should be administered (Nebulizer or Inhaler). Please select and document on the appropriate albuterol product order. Given 01/15/2024 2:45 PM EDT 2.5 mg documented in this encounter Care Teams Payment Rep Relationship Specialty Start Date End Date Edel Clay MD [address] [place] [address] [place] [address] PCP - General Family Medicine 03/03/17 documented as of this encounter
--- OUTSIDE RECORDS SUMMARY | 2024-06-12 02:37 | External Medical Summary | Summary of Care ---
Author Name Unknown Organization [facility] Address [address] [place] [address] Phone [phone] Care Team Providers Care Kennel Keeper Name Role Phone Edel Clay MD Primary Care Provide r Reason for Visit * Reason Comments Follow Up Encounter Details Date Type Department Care Team (Late st Contact Info) Description 01/15/2024 3:40 PM EDT Office Visit Pulmonary Medicine, [facility] 132 [facility] [place] [address] Eloy Pond MD [address] [facility] [place] [address] Mass of right lung* Allergies Active Allergy Reactions Criticality Noted Date [...] Thyroiditis 07/18/2008 06/01/2019 Overview: thyroglobulin antibody >3000 [id number] 08/19/200608/10 Overview: Renamed Per Clinical Trials Billing Project. Pt is a participant in the [facility] (Consortium of Rheumatology Researchers of [facility]) national data collection study. For further information please call Dr Temo Castaneda or Kim Ríos, RN, CCRC at [phone] [facility] RESEARCH OTHER*[id number] 08/19/2006 11/06/2009 Overview: Renamed Per Clinical Trials Billing Project. Pt is a participant in the [facility] (Consortium of Rheumatology Researchers of [place]) national data collection study. For further information please call Dr Temo Castaneda or Kim Ríos, RN, CCRC at [phone] Arthritis, rheumatoid 07/01/20062016 Abnormal blood chemistry 05/02/2006 [...] Sign Reading Time Taken Comments Blood Pressure 128/78 01/15/2024 3:20 PM EDT Pulse 77 01/15/2024 3:20 PM EDT Temperature - - Respiratory Rate 18 01/15/2024 3:20 PM EDT Oxygen Saturation 93% 01/15/2024 3:20 PM EDT Inhaled Oxygen Concentration - - Weight 87.3 kg (192 lb 7.4 oz) 01/15/2024 3:20 P M EDT Height 160.5 cm (5' 3.19") 01/15/2024 3:20 PM ED T Body Mass Index 33.89 01/15/2024 3:20 PM EDT documented in this encounter Progress Notes * Eloy Pond MD - 01/15/2024 3:38 PM EDT Images from the original note were not included. 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 Since last evaluation, patient underwent EBUS diagnostic workup which showed right upper lobe transbronchial biopsy positive for high-grade small cell lung cancer. Patient was set up with Medical Oncology and Radiation Oncology evaluation. Currently undergoing chemotherapy. IJ port placed by Interventional Radiology. Patient describes stable respiratory symptoms status, successfully quit smoking November 04, 2023. Not on any bronchodilator therapy. No history of recent pneumonia, viral illnesses reported. Well-preserved exercise tolerance. Has 1 dog at home. Physical examination significant for alert awake anxious middle aged female, class 2 throat with grade 2 tonsils, adequate air entry in all lung castillo, minimal wheezing, regular cardiac rhythm, no evidence of volume overload and nonlateralizing Neuro examination. Patient will be followed up in Six months to reassess respiratory symptoms status, review Hematology Oncology and Radiation Oncology recommended management plan. Data review: EBUS 11/24/23: Lung, Right upper lobe, Transbronchial biopsy: Adequacy: [...] MIB-1 proliferation index is approximately 90%. 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 mass EBUS 11/2023: Small Cell Ca Lung, s/p Chemo Port Placed GLH Stable Resp Fx status No MDIs RA since age 32, currently off Orencia and MTX Hypothyroidism BMI 33 No BD Rx Smoking cessation, December 04 2023 C/w Hematology and Rad Oncology f/u NO BD Rx F/u 6 Months Eloy Pond MD Subjective CC: Chief Complaint Patient presents with Follow Up HPI: Nursing Notes: Mayito Retanabhavnalucie, RECREATION PROGRAMMER 01/15/24 1528 Signed Interm History/Respiratory Symptoms Cough: Non productive Hemoptysis: No Sinus Symptoms: No Hospitalizations: No ED Trips: No Triggers: Perfumes/cologne/air fresheners Nocturnal: No CPAP/BiPAP/O2: Band Splitter DME Supplier: No Flu Vaccine: 02/12/22 Pneumovax: 10/29/11 Prevnar: 05/19/20 COVID 19: 01/18/22 Flu Vaccine Questionnaire Question 01/15/2024 9:05 AM EDT - Filed by Patient Get your flu shot at your upcoming appointment. Please select one of the options below. I don't want the flu shot Myc Visit Accident Related Question Question 01/15/2024 9:12 AM EDT - Filed by Patient Is this visit related to an accident? (i.e work, motor vehicle) No Travel Screening Question 01/15/2024 2:32 PM EDT - Filed by Patient Do you have any of the following new or worsening symptoms? None of these Have you recently been in contact with someone who was sick? No / Unsure Objective Filed Vitals: 01/15/24 1520 BP: 128/78 Pulse: 77 Resp: 18 SpO2: 93% Weight: 87.3 kg (192 lb 7.4 oz) Height: 1.605 m (5' 3.19") Exam: Const: No signs of acute distress present. Head/Face: Normal on inspection. Eyes: Conjunctivae clear. Pupils equal round and reactive to light. ENMT: Oropharynx: No erythema, exudate or masses. Posterior pharynx is normal. Neck: Supple and symmetric. Resp: Respiratory examination as outlined above CV: Rate is regular. Rhythm is regular. No heart murmur appreciated. Extremities: No edema of the lower limbs bilaterally. Skin: Skin is warm and dry. Neuro: Coordination normal. No involuntary movement. Psych: Patient's attitude is cooperative. Mood is normal. Affect is normal. Tests reviewed with the patient: IR INTERVENTIONAL RADIOLOGY PROCEDURE IN OR Result Date: 12/31/2023 IMPRESSION: Successful placement of a chest power injectable medical port. PET CT SKULL BASE TO MID-THIGH FDG Result Date: 12/08/2023 IMPRESSION 1. A similar large hypermetabolic right hilar mass with markedly increased FDG uptake, compatible with primary pulmonary malignancy. 2. Multiple hypermetabolic hypodense lesions throughoutthe liver, compatible with metastatic disease. 3. Multiple hypermetabolic lytic lesions involving bilateral iliac bones, right acetabulum and L4 vertebra, compatible with osseous metastatic disease. 4. Enlarged palatine and lingual tonsils with associated moderately increased FDG uptake, likely representing infectious/inflammatory process. Suggested close attention on follow-up imaging. XR CHEST 1 VIEW Result Date: 12/04/2023 IMPRESSION: Similar appearance of right hilar mass. No pneumothorax. THIS DOCUMENT HAS BEEN ELECTRONICALLY SIGNED BY LESLEY JJ MD CT CHEST WO CONTRAST Result Date: 11/23/2023 IMPRESSION 1. A right hilar mass measuring approximately 6.8 x 5.0 cm, consistent with malignancy. The mass encases the right mainstem bronchus and bronchus intermedius. Mild narrowing of the right mainstem bronchus and bronchus intermedius noted. 2. A nonspecific borderline enlarged precarinal lymph node measuring 1 cm in short axis. 3. Multiple liver lesions, concerning for metastases. A bank representative lesion in the posterior right hepatic lobe measures 3.7 x 2.6 cm. A follow-up CT abdomen and pelvis is suggested for further evaluation. Available Radiologic data was reviewed by me in PACS. The images were shown to the patient and findings were discussed with the patient. HOME MEDICATIONS: Lidocaine-Prilocaine 2.5-2.5 % External Cream (Emla) Prochlorperazine Maleate 10 MG Oral Tablet (Compazine) Methotrexate Sodium 2.5 MG Oral Tablet Multivitamins Oral Capsule Triamcinolone Acetonide 55 MCG/ACT Nasal Aerosol (Nasacort Allergy 24HR) Levothyroxine Sodium 100 MCG Oral Tablet (Levoxyl) Azelastine HCl 137 MCG/SPRAY Nasal Solution OMEGA-3 FATTY ACIDS 1000 MG PO CAPS oxyCODONE-Acetaminophen 5-325 MG Oral Tablet (Percocet) Ventolin HFA 108 (90 Base) MCG/ACT Inhalation Aerosol Solution Folic Acid 1 MG Oral Tablet Magic Swizzle (Bacijiniw-Ryycrllx-Fwmsrz) oral solution Orencia 125 MG/ML Subcutaneous Solution Prefilled Syringe (Abatacept) Albuterol Sulfate (Proventil) (2.5 MG/3ML) 0.083% inhalation solution 2.5 mg Albuterol Sulfate (Proventil) (5 MG/ML) 0.5% *conc* inhalation solution 2.5 mg diphenhydrAMINE (Benadryl) inj 50 mg EPINEPHrine 1 MG/ML inj 0.3 mg hEParin 100 UNIT/ML Lock Flush inj 500 Units Hydrocortisone Sod Suc (PF) (Solu-Cortef) inj 100 mg LORAzepam (Ativan) tab 0.5 mg NSS infusion oxygen GAS sodium chloride 0.9 % flush central line 10 mL ROS: No reported history of Hemoptysis, Hematemesis, Melena No reported history of Dysuria, Hematuria, Flank Pain No reported history of chronic headache, seizures No reported history of Fall or trauma . No reported history of recent change in weight or appetite. Past Medical History: Diagnosis Date Abnormal blood [...] performed by Jimmy Fine MD at OR [facility] INSER TUNN ACC DEV;5 YRS/OLDER Right 12/31/2023 INSERT TUNNELED CENTRAL VENOUS ACCESS WITH SUBQ PORT performed by Sin Burroughs MD at OR [facility] MAMMOGRAM SCREENING-BILATERAL 09/09/2007 heterogeneously dense, category 0 REMOVE GALLBLADDER 01/03/2012 Dr Gomez- [facility] - BREAST(S) 09/23/2007 left breast category 4, FNA suggested US HEAD AND NECK 07/21/2008 mildly enlarged right thyroid, consistent with multinodular goiter US HEAD AND NECK 06/30/2012 asymmetric thyromegaly Social History Socioeconomic History Marital status: Spouse name: Margarito Number of children: 1 Occupational History Employer: [employer] Tobacco Use Smoking status: Former Average packs/day: 1 pack/day for 28.0 years (28.0 ttl pk-yrs) Types: Cigarettes Start date: 12/04/1995 Smokeless tobacco: Never Vaping Use Vaping status: Every Day Substance and Sexual Activity Alcohol use: Yes Comment: ocas Drug use: No Sexual activity: Yes Partners: Male Comment: had vas, then reversal but did not work Social Determinants of Health Food Insecurity: No Food Insecurity (03/09/2019) Hunger Vital Sign Worried About Running Out of Food in the Last Year: Never true Ran Out of Food in the Last Year: Never true Social Connections Family History Problem Relation Name Age of Onset Diabetes Mother Stroke Mother Allergies Mother chronic rhinitis Other (stroke) Mother Heart Disorder Father Heart Disorder Aunt (Unspecified) Endocrine Disorder Grandmother (Maternal) Thyroid Disorder Grandmother (Maternal) Heart Disorder Grandmother (Paternal) Heart Disorder Grandfather (Paternal) Breast Cancer No significant family history Review of patient's allergies indicates: Allergen Reactions Clindamycin Hives Codeine "Stupor", drowsy Other Allergy (See Comments) Perfumes, hairspray, candles, etc. Sinus infections, headaches, very sensitive. Pcn [Penicillins] Hives ans swelling Sulfa Antibiotics Sick to her stomach documented in this encounter Nursing Notes * Armando Retana RRT - 01/15/2024 3:25 PM EDT Interm History/Respiratory Symptoms Cough: Non productive Hemoptysis: No Sinus Symptoms: No Hospitalizations: No ED Trips: No Triggers: Perfumes/cologne/air fresheners Nocturnal: No CPAP/BiPAP/O2: Band Splitter DME Supplier: No Flu Vaccine: 02/12/22 Pneumovax: 10/29/11 Prevnar: 05/19/20 COVID 19: 01/18/22 Flu Vaccine Questionnaire Question 01/15/2024 9:05 AM EDT - Filed by Patient Get your flu shot at your upcoming appointment. Please select one of the options below. I don't want the flu shot Myc Visit Accident Related Question Question 01/15/2024 9:12 AM EDT - Filed by Patient Is this visit related to an accident? (i.e work, motor vehicle) No Travel Screening Question 01/15/2024 2:32 PM EDT - Filed by Patient Do you have any of the following new or worsening symptoms? None of these Have you recently been in contact with someone who was sick? No / Unsure documented in this encounter Plan of Treatment Upcoming Encounters Date Type Department Care Team (Late st Contact Info) Description 01/16/2024 4:00 PM EDT Immunization/Injecti on Hematology/Oncology Treatment, [place] [address] [place] [phone] [place], Chair 2 Hem Onc Scenery [address] [place] [address] 02/02/2024 12:30 PM EDT Laboratory Laboratory Scenery [place] [address] [place] [phone] [place], Lab Scenery [address] [facility] [place] [address] 02/02/2024 1:00 PM EDT Office Visit Hematology/Oncology [facility] [place] 200 [facility] [place] [phone] Monica Ward MD [address] [place] [phone] 02/02/2024 1:30 PM EDT Hem/Onc Treatment Hematology/Oncology Treatment, [place] 200 [facility], [place] [phone] [place], Chair [address] [place] [address] 02/03/2024 1:00 PM EDT Hem/Onc Treatment Hematology/Oncology Treatment, [address], [place] [phone] [place], Chair [address] [place] [address] 02/04/2024 1:30 PM EDT Hem/Onc Treatment Hematology/Oncology Treatment, [address], [place] [phone] 02/06/2024 9:00 AM EDT Office Visit Family Medicine [address] [place] [phone] Amy Han PACarlos [address] [place] [address] [place] [address] 07/14/2024 3:00 PM EST Office Visit Pulmonary Medicine, [facility] [address] [facility] [place] [address] Eloy Pond MD [address] [place] [address] 10/15/2024 8:40 AM EDT Office Visit Rheumatology [address] [place] [phone] Samy Russo MD [address] [facility] [place], [place] [address] Health Maintenance Due Date Last Done Comments [...] this encounter Medical Devices Implanted Type Area Gas Plant Operator Device Identifier Shelf Expiration Date Model / Serial / Lot Port Implant W8f Poly Cath - [id number] Implanted:Qty : 1 on 12/31/2023 by Sin Burroughs MD at [facility] Right: Chest CR BARD : PERIPHERAL VASCULAR [id number] 10/09/2024 [id number] / [id number] documented as of this encounter Visit Diagnoses Diagnosis Mass of right lung- Primary documented in this encounter Care Teams Kennel Keeper Relationship Specialty Start Date End Date Edel Clay MD [address] [place] [address] [place] [address] PCP - General Family Medicine 03/03/17 documented as of this encounter
--- OUTSIDE RECORDS SUMMARY | 2024-06-12 02:37 | External Medical Summary | Summary of Care ---
Author Name Unknown Organization [facility] Address [address] [place] [address] Phone [phone] Care Team Providers Care Sports Marketer Name Role Phone Edel Clay MD Primary [...] Procedures PENDING TECENTRIQ & Monica Anderson MD [address] [place] [address] [place] [address] Anc Hem/Onc Scenery [address] [address] Referral ID Status Reason Start Date Expiration Date V isits Requested Visits Authorized [id number] Authorized 12/17/2023 06/13/[phone] Encounter Details Date Type Department Care Team (Latest Contact Info) Description 01/15/2024 12:00 PM EDT Hem/Onc Treatment Hematology/Oncolog y Treatment, [address] [phone] [place], Chair 6 Hem Onc [address] [address] Encounter for antineoplastic chemotherapy*; Cancer, [...] sites with positive rheumatoid factor ([facility]) INJECT 125 MG ( ONE SYRINGE [...] Thyroiditis 07/18/2008 06/01/2019 Overview: thyroglobulin antibody >3000 [id number]-[facility] 08/19/200608/10 Overview: Renamed Per Clinical Trials Billing Project. Pt is a participant in the [employer] (Consortium of Rheumatology Researchers of [place]) national data collection study. For further information please call Dr Temo Castaneda or Kim Ríos RN, CCRC at [phone] [facility] RESEARCH OTHER*[id number] 08/19/2006 11/06/2009 Overview: Renamed Per Clinical Trials Billing Project. Pt is a participant in the [employer] (Consortium of Rheumatology Researchers of [place]) national data collection study. For further information please call Dr Temo Castaneda or Kim Ríos, RN, CCRC at [phone] Arthritis, rheumatoid 07/01/20062016 Abnormal blood chemistry 05/02/2006 [...] - 01/15/2024 3:20 PM EDT Chair 10, [id number]. Pt has no new symptoms/concerns to report [...] 4:00 PM EDT Immunization/Injecti on Hematology/Oncology [address], [address] [phone] [place], Chair 2 Hem Onc [address] [place] [address] 02/02/2024 12:30 PM EDT Laboratory Laboratory [facility] [address] [place] [phone] [place] [facility] [address] [facility] [place] [address] 02/02/2024 1:00 PM EDT Office Visit Hematology/Oncology [facility] [address] [place] [phone] Monica Ward MD [address] [place] [address] [place] [phone] 02/02/2024 1:30 PM EDT Hem/Onc Treatment Hematology/Oncology Treatment, [address], [place] [phone] [place], Chair 11 Hem Onc Scenery [address] [facility] [place] [address] 02/03/2024 1:00 PM EDT Hem/Onc Treatment Hematology/Oncology Treatment, [address], [place] [phone] [place], Chair 9 Hem Onc Scenery [address] [place] [address] [place] [address] 02/04/2024 1:30 PM EDT Hem/Onc Treatment Hematology/Oncology Treatment, [address], [place] [phone] 02/06/2024 9:00 AM EDT Office Visit Family Medicine [address] [place] [phone] Amy Han PA-C [address] [place] [address] [place] [address] 10/15/2024 8:40 AM EDT Office Visit Rheumatology [address] [place] [phone] Samy Russo MD [address] [place] [address] [place] [address] Health Maintenance Due Date Last Done Comments [...] this encounter Medical Devices Implanted Type Area Train Station Agent Device Identifier Shelf Expiration Date Model / Serial / Lot Port Implant W8f Poly Cath - [id number] Implanted:Qty : 1 on 12/31/2023 by Sin Burroughs MD at [facility] Right: Chest CR BARD : PERIPHERAL VASCULAR [id number] 10/09/2024 [id number] / / [id number] documented as of this encounter Visit Diagnoses [...] ONCE PRN Other, Hypersensitivity Reaction, Starting on Fri01/15/24 at 1229, Until Fri01/16/24 at 1228, For 24 hours EPINEPHrine 1 MG/ML inj 0.3 mg 0.3 mg, Intramuscular, ONCE PRN Other, Hypersensitivity Reaction or Anaphylaxis, Starting on Fri01/15/24 at 1229, Until Fri01/16/24 at 1228, For 24 hours hEParin 100 UNIT/ML Lock Flush inj 500 Units 500 Units (5 mL), IV Lock, PRN Other, IV Flush, Starting on Fri01/15/24 at 1229, Until Fri01/16/24 at 1228, For 24 hours, Do not flush if lock, PICC, or central line not in place; IV infusing or unable to flush. Given 01/15/2024 2:00 PM EDT 500 Units Hydrocortisone Sod Suc (PF) (Solu-Cortef) inj 100 mg 100 mg, IV Push, ONCE PRN Other, Hypersensitivity Reaction, Starting on Fri01/15/24 at 1229, Until Fri01/16/24 at 1228, For 24 hours LORAzepam (Ativan) tab 0.5 mg 0.5 mg, Oral, ONCE PRN Anxiety, Nausea, Starting on Fri01/15/24 at 1330, Until Discontinued NSS infusion Intravenous, at 50 mL/hr, PRN, Starting on Fri01/15/24 at 1330, Until Discontinued, Maintenance line Start Infusion 01/15/2024 12:45 PM EDT 50 mL/hr oxygen GAS Inhalation, OXYGEN, First dose on Fri01/15/24 at 1600, Until Discontinued, Device/Managed by: Low [...] Starting on Lizbeth 01/15/24 at 1229, Until Fri01/16/24 at 1228, For 24 hours, Do not flush if lock, PICC, or central line not in place; IV infusing or unable to flush. Given 01/15/2024 2:00 PM EDT 10 mL Inactive Administered Medications [...] 12:48 PM EDT 190 mg 519.5 mL/hr ondansetron (Zofran) tab 8 mg 8 mg, Oral, ONCE, On Lizbeth 01/15/24 at 1330, For 1 dose, Give 30 minutes prior to chemotherapy. Given 01/15/2024 12:34 PM EDT 8 mg documented in this encounter Care Teams Sports Marketer Relationship Specialty Start Date End Date Edel Clay MD [address] [place] [address] [place] [phone] PCP - General Family Medicine 03/03/17 documented as of this encounter
--- OUTSIDE RECORDS SUMMARY | 2024-06-12 02:38 | External Medical Summary | Summary of Care ---
Author Name Unknown Organization [facility] Address [address] [place] [address] Phone [phone] Care Team Providers Care Radio Television Technical Director Name Role Phone Edel Clay MD Primary Care Provide r Reason for Visit * Reason Comments Outpatient Testing Encounter Details Date Type Department Care Team (Late st Contact Info) Description 01/13/2024 11:00 AM EDT Laboratory Laboratory [facility] [address] [place] [address] [facility] Lab Scenery [address] [place] [address] Rheumatoid arthritis involving multiple sites with positive [...] as of this encounter (statuses as of 01/13/2024) Medications Medication Sig Dispensed Refills Start Date [...] as of this encounter (statuses as of 01/13/2024) Active Problems Problem Noted Date Diagnosed Date [...] as of this encounter (statuses as of 01/13/2024) Resolved Problems Problem Noted Date Diagnosed Date [...] Thyroiditis 07/18/2008 06/01/2019 Overview: thyroglobulin antibody >3000 [id number] 08/19/200608/10 Overview: Renamed Per Clinical Trials Billing Project. Pt is a participant in the [facility] (Consortium of Rheumatology Researchers of [place]) national data collection study. For further information please call Dr Temo Castaneda or Kim Ríos, RN, CCRC at [phone] [facility] RESEARCH OTHER*[id number] 08/19/2006 11/06/2009 Overview: Renamed Per Clinical Trials Billing Project. Pt is a participant in the [facility] (Consortium of Rheumatology Researchers of [place]) national data collection study. For further information please call Dr Temo Castaneda or Kim Ríos, RN, CCRC at [phone] Arthritis, rheumatoid 07/01/20062016 Abnormal blood chemistry 05/02/2006 Overview: positive rheumatoid factor. Metabolic syndrome 04/29/2006 0 Overview: insulin level 16 Mixed dyslipidemia 02/06/2006 9 Overview: Per Lipid Taxonomy. chol 192, hdl 26, trig 403 Allergic rhinitis due to pollen 01/30/2006 03/03/2017 Obesity, BMI not known 08/07 Overview: Per Obesity Taxonomy Denture irritation 0 documented as of this encounter (statuses as of 01/13/2024) Immunizations Name Administration Dates Next Due COVID-19 [...] Care Team (Late st Contact Info) Description 01/13/2024 12:00 PM EDT Hem/Onc Treatment Hematology[address]cology [address] [phone] [place], Chair 1 Hem On[address] [place] [address] Arrived 01/14/2024 2:00 PM EDT Office Visit Hematology/Oncology [address] [place] [phone] Maddie Suarez CRNP [address] [facility] [place] [address] 01/14/2024 2:30 PM EDT Hem/Onc Treatment Hematology/Oncology [address] [phone] [place], Chair 10 Hem Onc [place] [address] [place] [place] [address] 01/15/2024 12:00 PM EDT Hem/Onc Treatment Hematology/Oncology Treatment, [place] [address] [facility], [place] [phone] [place], Chair 6 Hem Onc [address] [address] 01/15/2024 2:30 PM EDT PulmDiagnostic Pulmonary Function Lab, [facility] [address] [facility] [place] [address] [place], [address] [facility] [place] [address] 01/15/2024 3:40 PM EDT Office Visit Pulmonary Medicine, [facility] [address] [facility] [place] [address] Eloy Pond [facility] [address] [facility] [address] 01/16/2024 4:00 PM EDT Immunization/Injection Hematology/Oncology Treatment, [address] [phone] [place], Chair 2 Hem Onc [address] [place] [address] 02/06/2024 2:20 PM EDT Office Visit Family Medicine [address] [place] [phone] Amy Han PA-C [address] [place] [address] [place] [address] 10/15/2024 8:40 AM EDT Office Visit Rheumatology [address] [place] [phone] Samy Russo MD [address] [place] [address] Pending Results Name Type Priority Associated Diagnoses Date /Time COMPREHENSIVE METABOLIC PANEL Lab Routine Rheumatoid arthritis involving multiple sites with positive rheumatoid factor (HCC) Encounter for long-term (current) use of medications 01/13/2024 11:09 AM EDT Health Maintenance Due Date Last [...] this encounter Medical Devices Implanted Type Area Airfield Manager Device Identifier Shelf Expiration Date Model / Serial / Lot Port Implant W8f Poly Cath - [id number] Implanted:Qty : 1 on 12/31/2023 by Sin Burroughs MD at [facility] Right: Chest CR BARD : PERIPHERAL VASCULAR [id number] 10/09/2024 [id number] / / [id number] documented as of this encounter Procedures Procedure Name Priority Date/Time Associated Diagnosis Comments DIFFERENTIAL, AUTOMATED Routine 01/13/2024 11:09 AM EDT Rheumatoid arthritis involving multiple sites with positive rheumatoid factor (HCC) Encounter for long-term (current) use of medications CBC Routine 01/13/2024 11:09 AM EDT Rheumatoid arthritis involving multiple sites with positive rheumatoid factor (HCC) Encounter for long-term (current) use of medications CBC Routine 01/13/2024 11:09 AM EDT Rheumatoid arthritis involving multiple sites with positive rheumatoid factor (HCC) Encounter for long-term (current) use of medications documented in this encounter Results * DIFFERENTIAL, AUTOMATED (01/13/2024 11:09 AM EDT) WBC 7.86 4.00 - 10.80 K/uL 01/13/2024 11:18 AM EDT [facility] 56-02 Neutrophils % 52.3 40.0 - 75.0 % 01/13/2024 11:18 AM EDT [facility] 56-02 Lymphocytes % 35.8 18.0 - 42.0 % 01/13/2024 11:18 AM EDT [facility] 56-02 Monocytes % 10.7 1.0 - 11.0 % 01/13/2024 11:18 AM EDT [facility] 56-02 Eosinophils % 0.3 0.0 - 6.0 % 01/13/2024 11:18 AM EDT [facility] 56-02 Basophils % 0.9 0.0 - 2.0 % 01/13/2024 11:18 AM EDT [facility] 56 Absolute Neutrophils 4.12 1.80 - 7.70 K/uL 01/13/2024 11:18 AM EDT [facility] 56 Absolute Lymphocytes 2.81 1.00 - 4.80 K/ul 01/13/2024 11:18 AM EDT [facility] 56 Absolute Monocytes 0.84 0.00 - 1.10 K/uL 01/13/2024 11:18 AM EDT [facility] 56 Absolute Eosinophils 0.02 0.00 - 0.70 K/uL 01/13/2024 11:18 AM EDT [facility] 56 Absolute Basophils 0.07 0.00 - 0.20 K/uL 01/13/2024 11:18 AM EDT [facility] 56 Blood Venous blood specimen / Unknown Venipuncture / Unknown 01/13/2024 11:09 AM EDT 01/13/2024 11:09 AM EDT Samy Russo MD LAB BLOOD ORDERABLE S [facility] [address] [place] [address] * CBC (01/13/2024 11:09 AM EDT) WBC 7.86 4.00 - 10.80 K/uL 01/13/2024 11:18 AM EDT [facility] 56 RBC 3.83 3.85 - 5.15 M/uL 01/13/2024 11:18 AM EDT [facility] 56 HGB 12.5 12.0 - 15.3 g/dL 01/13/2024 11:18 AM EDT [facility] 56 HCT 38.7 36.0 - 45.2 % 01/13/2024 11:18 AM EDT [facility] 56 MCV 101.0 81.5 - 97.5 fL 01/13/2024 11:18 AM EDT [facility] 56 MCH 32.6 27.0 - 34.0 pg 01/13/2024 11:18 AM EDT [place] [address] MCHC 32.3 32.0 - 36.0 g/dL 01/13/2024 11:18 AM EDT [facility] 56 RDW 15.0 11.5 - 15.5 % 01/13/2024 11:18 AM EDT [facility] 56 PLT 399 140 - 400 K/uL 01/13/2024 11:18 AM EDT [facility] 56 MPV 9.2 6.6 - 11.1 fL 01/13/2024 11:18 AM EDT [facility] 56 Blood Venous blood specimen / Unknown Venipuncture / Unknown 01/13/2024 11:09 AM EDT 01/13/2024 11:09 AM EDT Samy Russo MD LAB BLOOD ORDERABLE S [facility] [address] [place] [address] documented in this encounter Visit Diagnoses Diagnosis Rheumatoid arthritis involving multiple sites with positive rheumatoid factor (HCC) Encounter for long-term (current) use of medications Encounter for long-term (current) use of other medications documented in this encounter Care Teams Radio Television Technical Director Relationship Specialty Start Date End Date Edel Clay MD [address] [place] [address] [place] [address] PCP - General Family Medicine 03/03/17 documented as of this encounter
--- OUTSIDE RECORDS SUMMARY | 2024-06-12 02:38 | External Medical Summary | Summary of Care ---
Author Name Unknown Organization [facility] Address [address] [place] [address] Phone [phone] Care Team Providers Care Local Flatbed Driver Name Role Phone Edel Clay MD Primary Care Provide r Reason for Visit * Auth/Cert Specialty Diagnoses / Procedures Referred By Contac t Referred To Contact Diagnoses Small cell lung cancer, right (HCC) Adenocarcinoma of colon metastatic to liver (HCC) Small cell lung cancer, right (HCC) [C34.91] Adenocarcinoma of colon metastatic to liver (HCC) [C18.9, C78.7] Procedures INSER TUNN ACC DEV;5 YRS/OLDER INSERT TUNNELED CENTRAL VENOUS ACCESS WITH SUBQ PORT Sin Burroughs MD [address] [address] [address] [facility] [address] [address] Referral ID Status Reason Start Date Expiration Date Visits Re quested Visits Authorized [id number] Encounter Details Date Type Department Care Team (Latest Contact Info) Description 12/31/2023 11:42 AM EDT - 12/31/2023 1:56 PM EDT Hospital Encounter [facility], Operating Room, [facility] - 4th Floor [address] [address] Sin Burroughs MD [address] [address] Discharge Disposition: Home - Self Care Allergies Active Allergy Reactions Criticality Noted Date Comments Clindamycin Hives 08/26/2014 Codeine 10/25/2011 "Stupor", drowsy Other Allergy (See Comments) 024 Perfumes, hairspray, candles, etc. Sinus infections, headaches, very sensitive. Penicillins 01/30/2006 Hives ans swelling Sulfa Antibiotics 06/29/2010 Sick to her stomach documented as of this encounter (statuses as of 01/01/2024) Medications Medication Sig Dispensed Refills Start Date [...] 18 g 3 4 12/31/19 24 Discontinued documented as of this encounter (statuses as of 01/01/2024) Active Problems Problem Noted Date Diagnosed Date [...] as of this encounter (statuses as of 01/01/2024) Resolved Problems Problem Noted Date Diagnosed Date [...] Thyroiditis 07/18/2008 06/01/2019 Overview: thyroglobulin antibody >3000 [facility] 08/19/200608/10 Overview: Renamed Per Clinical Trials Billing Project. Pt is a participant in the [employer] (Consortium of Rheumatology Researchers of [place]) national data collection study. For further information please call Dr Temo Castaneda or Kim Ríos, RN, CCRC at [phone] [facility] RESEARCH OTHER*[id number] 08/19/2006 11/06/2009 Overview: Renamed Per Clinical Trials Billing Project. Pt is a participant in the [employer] (Consortium of Rheumatology Researchers of [place]) national data collection study. For further information please call Dr Temo Castaneda or Kim Ríos, RN, CCRC at [phone] Arthritis, rheumatoid 07/01/20062016 Abnormal blood chemistry 05/02/2006 Overview: positive rheumatoid factor. Metabolic syndrome 04/29/2006 0 Overview: insulin level 16 Mixed dyslipidemia 02/06/2006 9 Overview: Per Lipid Taxonomy. chol 192, hdl 26, trig 403 Allergic rhinitis due to pollen 01/30/2006 03/03/2017 Obesity, BMI not known 08/07 Overview: Per Obesity Taxonomy Denture irritation 0 documented as of this encounter (statuses as of 01/01/2024) Immunizations Name Administration Dates Next Due COVID-19 [...] lent, No Preserve, IM 03/02/2020,02/09/2019,02/09/2018,02/19,02/27/2015 Seasonal Influenza, Split, I IV3, With Preserve, Inj 02/10/2017,02/17/2014,02/08/2013,02/09,02/18/2011,03/01/2010,02/28/2009 ,03/09/2008,03/27/2007 TD, Preservative Free 08/18/2018 TDAP (age 10 and older)(Boostrix) 02/10/2008 TDAP, Age 7 and older, IM (Adacel) 02/10/2008 documented as of this encounter Social History Tobacco Use Types Packs/Day Years Used Date Smoking Tobacco: Former Cigarettes 1 28 Smokeless Tobacco: Never Tobacco Cessation:Counseling Given: Not Answered Comments:started age 25/ no [...] Sign Reading Time Taken Comments Blood Pressure 148/72 12/31/2023 1:38 PM EDT Pulse 82 12/31/2023 1:38 PM EDT Temperature 36.6 C (97.9 F) 12/31/2023 1:38 PM ED T Respiratory Rate 16 12/31/2023 1:38 PM EDT Oxygen Saturation 99% 12/31/2023 1:38 PM EDT Inhaled Oxygen Concentration - - Weight 84.4 kg (186 lb) 12/31/2023 11:59 AM EDT Height 160 cm (5' 3") 12/31/2023 11:59 AM EDT Body Mass Index 32.95 12/31/2023 11:59 AM EDT documented in this encounter Discharge Instructions * Discharge Instr - AVS* Sin Burroughs MD - 12/31/2023 1:20 PM EDT Discharge Date: 12/31/2023 Provider: Dr. Sin Burroughs If you are experiencing any problems related to your procedure, please contact Interventional Radiology at [phone] during normal business hours: Friday- Friday 7:30 am - 4 pm. If a problem occursoutside of normal business hours, please call the hospital positive printer operator at [phone] and ask for theInterventional Radiologist workers compensation claims examiner. Contact scheduling for Interventional Radiology at [phone] during normal business hours: Friday-Friday, 7:30 am - 4 pm. The information below provides you with the instructions and the list of medications you need to betaking following discharge from the hospital. If you have any questions, please ask before leaving.Please carry this letter with you when you see your doctor in the clinic. If you have questions, you can reach us at the numbers above. SPECIAL INSTRUCTIONS Mediport Insertion (Implanted Central Venous Access) A Mediport is a sealed chamber covered by a silicone disc that is surgically placed in a pocket under the skin on the upper chest, just below the collarbone. This chamber connects to a flexible tube that goes into a large vein in the neck. The tip is near the heart. The port provides direct access to the bloodstream and can be used in drawing blood samples and giving intravenous fluids and medications. Some ports allow CT scan injections; these ports are referred to as "Power Ports." The port will be visible only as a small raised area beneath your skin. Home Care If you experience pain or discomfort at the site you may use a cold pack on the site and/or take acetaminophen (Tylenol) or your preferred pain medicine as directed. Avoid contact sports or any activity that may cause blunt force impact to the port area, as it may damage your port. Avoid strenuous activity for 24 to 48 hours after the procedure. Do not lift anything heavier than 10 pounds for 3 days after the procedure. Gradually increase your activity after 24 to 48 hours after the procedure. No dressing changes or wound care are needed at the insertion site. Your wound is closed with sutures on the inside and then sealed on the outside with a special "skin glue" called Dermabond (a surgical glue). Depending on your physician's preference, there may also be "steri strips" applied. It isvery important to let these special bandages fall off on their own. Please do not scrub or pull these bandages off. You may gently wash the area with soap and water. Depending on your physician's preference, there may also be gauze and Tegaderm (clear) bandage overthe Mediport insertion site. You may remove this bandage in 24 hours. You may shower in 24 hours. Gently wash the area and pat it dry. Please DO NOT take a bath, soak in a hot tub, or swim until the wound is completely healed. Your port must be accessed and flushed/heparinized every 30 days if it is not currently being used. When to Call Interventional Radiology Call Interventional Radiology right away if you have any of the following: Fever above 100 degrees Fahrenheit Increased bleeding, redness, swelling, warmth, or discharge at the incision site. Constant or increasing pain, numbness, coldness, or tingling around the incision area. Vomiting or nausea that does not go away If at any time you experience any of the following or feel you are having a medical emergency, [id number] for emergency assistance. Chest Pain Sudden, severe shortness of breath Rapid heart rate Sudden onset of weakness Do not smoke or use tobacco products in any way! If you feel suicidal or homicidal, please call the crisis hotline at [phone]-HKGW ([phone]) MODERATE SEDATION You may have received medication that made you comfortable/sedated you during your procedure. This is considered moderate sedation. This medication was given to relax you. You may also not remember having the procedure done. It may take up to 24 hours for this medication to be out of your system. Because of this, you should observe the following for the next 24 hours: Do not drink alcohol or take depressant drugs. Do not operate any type of machinery that requires hand-eye coordination. Do not sign any legal papers or documents. Do not make any financial decisions. You should be in the presence of an adult for the remainder of the day. If you are experiencing any problems related to your procedure, you should contact the Interventional Radiology physician unless otherwise directed. Driving: You may resume driving 1 day . Diet: You may resume your current diet as tolerated. Return to work or school: You may return to school or work 1 days after the procedure, unless otherwise instructed by the physician. documented in this encounter Progress Notes * Sin Burroughs MD - 12/31/2023 1:18 PM EDT [address] [address] OUTPATIENT SURGERY DISCHARGE SUMMARY NOTE Name: Alfredo Torrez Location: [facility] Date: 12/31/2023 Time: 1:18 PM Surgery Date: 12/31/2023 Procedure: INSERT TUNNELED CENTRAL VENOUS ACCESS WITH SUBQ PORT Right Surgeon: Sin Burroughs MD Discharge Diagnosis: port placement After examination of this patient, I have determined she is ready for discharge to home when the patient meets criteria. Discharge instructions were given to the patient. documented in this encounter H&P Notes * Sin Burroughs MD - 12/31/2023 11:53 AM EDT HISTORY & PHYSICAL - Interventional Radiology Service [address] [address] Name: Alfredo Torrez Location: [facility] Date: 12/31/2023 Time: 11:53 AM CHIEF COMPLAINT: Port placement HISTORY OF PRESENT ILLNESS: right hilar mass Past Medical History: Diagnosis Date Abnormal blood [...] performed by Jimmy Fine MD at [facility] MAMMOGRAM SCREENING-BILATERAL 09/09/2007 heterogeneously dense, category 0 REMOVE GALLBLADDER 01/03/2012 Dr Gomez- [facility] US - BREAST(S) 09/23/2007 left breast category 4, FNA suggested US HEAD AND NECK 07/21/2008 mildly enlarged right thyroid, consistent with multinodular goiter US HEAD AND NECK 06/30/2012 asymmetric thyromegaly Social History Socioeconomic History Marital status: Spouse name: Margarito Number of children: 1 Years of education: Not on file Highest education level: Not on file Occupational History Employer: [employer] Tobacco Use Smoking status: Every Day Current packs/day: 1.00 Average packs/day: 1 pack/day for 28.0 years (28.0 ttl pk-yrs) Types: Cigarettes Smokeless tobacco: Never Tobacco comments: started age 25/ no passive smoke. 1 ppd smoker 11/27/23. Vaping Use Vaping status: Former Substance and Sexual Activity Alcohol use: Yes [...] on file Housing Stability: Not on file Family History Problem Relation Name Age of [...] Sulfa Antibiotics Sick to her stomach Current Facility-Administered Medications Medication Dose Route Frequency Provider Last Rate Last Admin isolyte-S pH 7.4 infusion 25 mL/hr Intravenous Continuous Sin Burroughs MD REVIEW OF SYSTEMS: Constitutional: (-) fever chills sweats or weight loss Cardiovascular: (-) negative: no chest pain, dyspnea, syncope, or palpitations Pulmonary: (-) negative: no cough, wheezing, or shortness of breath Abdominal/GI: (-) negative: no pain, heartburn, dysphagia, bleeding, change in bowel habits, nauseaor vomiting OBJECTIVE: LMP 09/07/2015 (Approximate) PHYSICAL EXAM: Constitutional: no acute distress CV: normal rate and rhythm, no murmur, gallops or rub Chest: normal respiratory effort, lungs clear to auscultation and percussion, breath sounds normal Abdomen: normal: soft, bowel sounds normal, no masses, tenderness or organomegaly LABS: CBC Results: PT INR Results: Results for orders placed or performed in visit on 12/19/23 PT INR Result Value Ref Range Prothrombin Time 12.6 11.6 - 15.2 seconds INR 1.0 0.8 - 1.2 BUN Results: Lab Results Component Value Date/Time BUN - [facility] 9 12/19/2023 04:12 PM BUN - [facility] 10 11/10/2023 09:43 AM BUN - [facility] 9 08/07/2023 04:11 PM BUN - [facility] 8 02/07/2020 09:40 AM BUN - [facility] 8 11/01/2019 12:07 PM BUN - [facility] 8 06/01/2019 08:46 AM Creatinine Results: Lab Results Component Value Date/Time CREATININE - [facility] 0.9 12/19/2023 04:12 PM CREATININE - [facility] 0.9 11/10/2023 09:43 AM CREATININE - [facility] 0.9 08/07/2023 04:11 PM CREATININE - [facility] 0.8 02/07/2020 09:40 AM CREATININE - [facility] 0.8 11/01/2019 12:07 PM CREATININE - [facility] 0.8 06/01/2019 08:46 AM CREATININE-OUTSIDE LAB 1.05 (A) 12/13/2022 12:00 AM CREATININE-OUTSIDE LAB 1.0 11/09/2014 12:00 AM Potassium Results: Lab Results Component Value Date/Time POTASSIUM - [facility] 3.9 12/19/2023 04:12 PM POTASSIUM - [facility] 4.1 11/10/2023 09:43 AM POTASSIUM - [facility] 3.8 08/07/2023 04:11 PM POTASSIUM - [facility] 4.4 02/07/2020 09:40 AM POTASSIUM - [facility] 4.2 11/01/2019 12:07 PM POTASSIUM - [facility] 4.3 06/01/2019 08:46 AM POTASSIUM-OUTSIDE LAB 3.4 (A) 12/13/2022 12:00 AM POTASSIUM-OUTSIDE LAB 3.6 (A) 11/09/2014 12:00 AM INFORMED CONSENT: Yes PRE-SEDATION ASSESSMENT IMPRESSION/PLAN: Port placement Sin Burroughs MD documented in this encounter Nursing Notes * Pardeep Diane, RN - 12/31/2023 12:37 PM EDT Pt condition was reassessed by Dr. Sin Burroughs immediately prior to start of moderate sedation and procedure. documented in this encounter OR Notes * OR Surgeon - Sin Burroughs MD - 12/31/2023 1:24 PM EDT Procedure: chest medical port placement 12/31/23 INDICATION: central intravenous access needed for chemotherapy.] ATTENDING (OPERATING PHYSICIAN): [Heike] CONSENT: After a detailed discussion of the procedure, risks, benefits and alternative treatment options, informed consent was obtained. TIME OUT: A time out procedure was performed. The patient's identification was verified. Informed consent with agreement of procedure, site and position was obtained. All necessary equipment was available prior to procedure. CONTRAST: No contrast was administered. COMPLICATIONS: None. ANESTHESIA: [Local lidocaine.] [IV Versed.] [IV Fentanyl.] SEDATION TIME: [Start to end: [8019-2734]. Qualified nurse sedation observer [NORM pacheco.] MEDICATIONS: See MAR PROCEDURE DESCRIPTION: The [right] neck and chest were prepped and draped in the usual sterile fashion. After local anesthesia, a small incision was made at the site of venous access in the neck. Using real-time ultrasound guidance, the internal jugular vein was punctured with a micro puncture needle. Digital ultrasound images were acquired and digitally archived. A wire and sheath were used to secure access to the internal jugular vein access using fluoroscopic guidance. [A second incision was made in the upper chest and a pocket was created. The medical port catheter was tunneled from the pocket to the venotomy site. A peel- away sheath was placed through the venotomy over the wire and the catheter was advanced through a peel-away sheath and positioned under fluoroscopic guidance. The catheter was then measured to [28] cm, cut, and attached to a power injectable port.] Once the medical port and catheter were in satisfactory position, the medical port was accessed, had appropriate blood return, and easily flushed and was locked with dilute heparin. [The incision wasthen closed in layers with absorbable sutures and tissue adhesive.] The venotomy site was closed with [absorbable suture and] tissue adhesive. I personally performed the procedure. Findings: Ultrasound shows an anechoic and compressible [right] internal jugular vein. The medical port is inthe upper chest with the catheter tip at the [mid right atrium.] Impression: Successful placement of a chest power injectable medical port. * Operative Report Brief - Sin Burroughs MD - 12/31/2023 1:17 PM EDT PROCEDURE NOTE - Interventional Radiology [facility] [address] Name: Alfredo Torrez [facility] Date: 12/31/2023 Time: 1:17 PM PROCEDURE: port placement MEDICAL APPOINTMENT CLERK: Dr. Sin Burroughs ASSISTANTS: none ANESTHESIA: conscious sedation COMPLICATIONS: none SPECIMEN: tissue to surgical pathology ESTIMATED BLOOD LOSS: negligible FINDINGS: right IJ patent documented in this encounter Miscellaneous Notes * Sedation Note - Sin Burroughs MD - 12/31/2023 1:18 PM EDT Post Sedation Evaluation: Cardiovascular status: acceptable Level of consciousness: awake and alert Airway patency: patent Distress - NAD Hydration status - well hydrated Nausea/vomiting - not present Pain Evaluation Pain Assessment Flowsheet Row Most Recent Value Pain Assessment Scale [facility] Adult Scale 0-10 Pain Score 0 (no pain) Vital Signs: Temp: 37 C (98.6 F) (12/30 1310) BP: 154/77 (12/30 1310) Pulse: 83 (12/30 1310) Resp: 16 (12/30 1310) SpO2: 100 % (12/30 1310) I have personally examined the patient, prescribed the necessary medications as charted, and certify that Alrfedo Torrez is recovered for safe discharge from my face to face care. * Pre-Sedation Assessment - Sin Burroughs MD - 12/31/2023 12:24 PM EDT PRE-SEDATION ASSESSMENT PRE-SEDATION ASSESSMENT: Port Placement Level of sedation planned: Moderate Patient's allergies reviewed: Yes H&P Review / Interval Note Documentation: There is no H&P on file. Difficulty with sedation / anesthesia: No Sleep apnea: No History of snoring: No History of difficult intubation: No Decreased ROM neck flexion/extension: No Tracheal deviation: No Decreased ability to open mouth / TMJ: No Loose teeth / dentures / partial: Yes Congenital deformities / abnormalities: No Dysphagia: No Mallampati Classification: II - soft palate, uvula, fauces visible Chest: Clear Heart: Regular Rhythm ASA Risk Stratification ([facility]): ASA 2 - Mild systemic disease, no functional limitations The patient was identified and the procedure verified: Yes The patient was reevaluated immediately prior to the sedation: 12/31/2023 12:25 PM documented in this encounter Plan of Treatment Upcoming Encounters Date Type Department Care Team (Late st Contact Info) Description 01/13/2024 11:00 AM EDT Laboratory Laboratory [facility] [address] [place] [phone] [place], Lab [address] [facility] [place] [address] 01/13/2024 12:00 PM EDT Hem/Onc Treatment Hematology/[address]cology [address] [phone] [place], Chair 1 Hem Onc [address] [place] [address] 01/14/2024 2:00 PM EDT Office Visit Hematology/Oncology [facility] [address] [place] [phone] Maddie Suarez CRNP [address] [facility] [place], [place] [phone] 01/14/2024 2:30 PM EDT Hem/Onc Treatment Hematology/[address]cology [address] [phone] [place], Chair 10 Hem Onc [address] [place] [address] 01/15/2024 12:00 PM EDT Hem/Onc Treatment Hematology/Oncology Treatment, [place] [address] [place], [place] [address] [place], Chair 6 Hem Onc [address] [facility] [address] 01/15/2024 2:30 PM EDT PulmDiagnostic Pulmonary Function Lab, [facility] [address] [place] [address] [place], [address] [place] [address] 01/15/2024 3:40 PM EDT Office Visit Pulmonary Medicine, [facility] [address] [place] [address] Eloy Pond [facility] [address] [facility] [address] 02/06/2024 2:20 PM EDT Office Visit Family Medicine [address] [place] [address] Amy Han PA-C [address] [place] [address] [place] [address] 10/15/2024 8:40 AM EDT Office Visit Rheumatology [address] [place] [phone] Samy Russo MD [address] [facility] [address] Health Maintenance Due Date Last Done Comments [...] Cancer Screening 06/01/2022 COVID-19 Vaccine ( season) 2023 01/18/2022, 06/09/2021, 12/27/2020, Additional history exists Influenza Vaccine (FLU shot) (#1) 2024 02/12/2022, 02/09/2021, 03/02/2020, Additional history exists HbA1c 08/06/2024 08/07/2023 TSH 08/06/2024 08/07/2023, 07/11, 07/31/2021, Additional history exists Mammogram 09/11/2024 09/12/2023, 08/11, 08/29/2020, Additional history exists Lipid Panel 05/19/2025 05/19/2020, 05/13, 03/07/2017, Additional history exists DTaP,Tdap,and Td Vaccines (4 - Td or Tdap) 08/18/2028 [...] this encounter Medical Devices Implanted Type Area [employer] Counselor Device Identifier Shelf Expiration Date Model / Serial / Lot Port Implant [id number] Poly Cath - [id number] Implanted:Qty : 1 on 12/31/2023 by Sin Burroughs MD at [facility] Right: Chest CR BARD : PERIPHERAL VASCULAR [id number] 10/09/2024 [id number] / / [id number] documented as of this encounter Procedures Procedure Name Priority Date/Time Associated Diagnosis Comments IR INTERVENTIONAL RADIOLOGY PROCEDURE IN OR Routine 12/31/2023 1:03 PM EDT documented in this encounter Results * IR INTERVENTIONAL RADIOLOGY PROCEDURE IN OR (12/31/2023 1:03 PM EDT) 12/31/2023 1:27 PM EDT Impressions [facility] RADIOLOGY - 12/31/2023 1:24 PM EDT IMPRESSION: Successful placement of a chest power injectable medical port. Narrative [facility] RADIOLOGY - 12/31/2023 1:24 PM EDT PROCEDURE: chest medical port placement 12/31/23 INDICATION: central intravenous access needed for chemotherapy. ATTENDING (OPERATING PHYSICIAN): Heike CONSENT: After a detailed discussion of the procedure, risks, benefits and alternative treatment options, informed consent was obtained. TIME OUT: A time out procedure was performed. The patient's identification was verified. Informed consent with agreement of procedure, site and position was obtained. All necessary equipment was available prior to procedure. CONTRAST: No contrast was administered. COMPLICATIONS: None. ANESTHESIA: Local lidocaine. IV Versed. IV Fentanyl. SEDATION TIME: Start to end: [id number]. Qualified nurse sedation observer NORM blanco. MEDICATIONS: See MAR PROCEDURE DESCRIPTION: The right neck and chest were prepped and draped in the usual sterile fashion. After local anesthesia, a small incision was made at the site of venous access in the neck. Using real-time ultrasound guidance, the internal jugular vein was punctured with a micro puncture needle. Digital ultrasound images were acquired and digitally archived. A wire and sheath were used to secure access to the internal jugular vein access using fluoroscopic guidance. A second incision was made in the upper chest and a pocket was created. The medical port catheter was tunneled from the pocket to the venotomy site. A peel-away sheath was placed through the venotomy over the wire and the catheter was advanced through a peel-away sheath and positioned under fluoroscopic guidance. The catheter was then measured to 28 cm, cut, and attached to a power injectable port. Once the medical port and catheter were in satisfactory position, the medical port was accessed, had appropriate blood return, and easily flushed and was locked with dilute heparin. The incision was then closed in layers with absorbable sutures and tissue adhesive. The venotomy site was closed with absorbable suture and tissue adhesive. I personally performed the procedure. FINDINGS: Ultrasound shows an anechoic and compressible right internal jugular vein. The medical port is in the upper chest with the catheter tip at the mid right atrium. Procedure Note Sin Burroughs MD - 12/31/2023 PROCEDURE: chest medical port placement 12/31/23 INDICATION: central intravenous access needed for chemotherapy. ATTENDING (OPERATING PHYSICIAN): Heike CONSENT: After a detailed discussion of the procedure, risks, benefits andalternative treatment options, informed consent was obtained. TIME OUT: A time out procedure was performed. The patient's identificationwas verified. Informed consent with agreement of procedure, site andposition was obtained. All necessary equipment was available prior toprocedure. CONTRAST: No contrast was administered. COMPLICATIONS: None. ANESTHESIA: Local lidocaine. IV Versed. IV Fentanyl. SEDATION TIME: Start to end: [id number]. Qualified nurse sedation NORM sears. MEDICATIONS: See MAR PROCEDURE DESCRIPTION: The right neck and chest were prepped and draped inthe usual sterile fashion. After local anesthesia, a small incision wasmade at the site of venous access in the neck. Using real-timeultrasound guidance, the internal jugular vein was punctured with a micropuncture needle. Digital ultrasound images were acquired and digitallyarchived. A wire and sheath were used to secure access to the internaljugular vein access using fluoroscopic guidance. A second incision was made in the upper chest and a pocket was created.The medical port catheter was tunneled from the pocket to the venotomysite. A peel-away sheath was placed through the venotomy over the wire andthe catheter was advanced through a peel-away sheath and positioned underfluoroscopic guidance. The catheter was then measured to 28 cm, cut, andattached to a power injectable port. Once the medical port and catheter were in satisfactory position, themedical port was accessed, had appropriate blood return, and easilyflushed and was locked with dilute heparin. The incision was then closedin layers with absorbable sutures and tissue adhesive. The venotomy sitewas closed with absorbable suture and tissue adhesive. I personally performed the procedure. FINDINGS: Ultrasound shows an anechoic and compressible right internal jugular vein.The medical port is in the upper chest with the catheter tip at the midright atrium. IMPRESSION IMPRESSION: Successful placement of a chest power injectable medical port. Sin MILLER Performing Organization Address City/State/ZIP [place] Phone Number [facility] documented in this encounter Administered Medications Inactive Administered Medications - up to 3 most recent administrations Medication Order MAR Action Action Date Dose Rate Site ceFAZolin in dextrose (Ancef) ivpb 2 g 2 g, IV Piggyback, ONCE, 1 dose, On Fri12/31/23 at 1300 New Bag 12/31/2023 12:43 PM EDT 2 g 100 mL/hr isolyte-S pH 7.4 infusion Intravenous, at 25 mL/hr, All Patients EXCEPT Dialysis patients Plasma-LYTE 148, isolyte-S, and isolyte-S pH 7.4 are considered equivalent - including for MAR barcode scanning., CONTINUOUS, Starting on Fri12/31/23 at 1230, Until Fri12/31/23 at 1757, Pre-Op New Bag 12/31/2023 12:12 PM EDT 25 mL/hr 25 mL/hr documented in this encounter Active and Recently Administered Medications Times are shown in EDT. Scheduled Medication Order 12/29/2023 12/30/2023 12/31/2023 ceFAZolin in dextrose (Ancef) ivpb 2 g (COMPLETED) 2 g, IV Piggyback, ONCE, 1 dose, On Fri12/31/23 at 1300 1243 (New Bag - Prov ider: Dhaval Blanco, NORM) Continuous Medication Order 12/29/2023 12/30/2023 12/31/2023 isolyte-S pH 7.4 infusion Intravenous, at 25 mL/hr, All Patients EXCEPT Dialysis patients Plasma-LYTE 148, isolyte-S, and isolyte-S pH 7.4 are considered equivalent - including for MAR barcode scanning., CONTINUOUS, Starting on Fri12/31/23 at 1230, Until Fri12/31/23 at 1757, Pre-Op 1212 (New Bag - Prov ider: Fiona Keyes, NORM) PRN Medication Order 12/29/2023 12/30/2023 12/31/2023 buffered lidocaine 1 % inj (CANCELED) ONCE PRN INTRA PROCEDURE, Starting on Fri12/31/23 at 1255, Until Fri12/31/23 at 1302, Intra-Op 1255 (Given - Provid er: Sin Burroughs MD) fentaNYL (PF) inj (CANCELED) ONCE PRN INTRA PROCEDURE, Starting on Fri12/31/23 at 1241, Until Fri12/31/23 at 1302, Intra-Op 1241 (Given - Provid er: Dhaval Blanco RN) hEParin 100 UNIT/ML Lock Flush inj (CANCELED) ONCE PRN INTRA PROCEDURE, Starting on Fri12/31/23 at 1256, Until Fri12/31/23 at 1302, Intra-Op 1256 (Given - Provid er: Sin Burroughs MD) midazolam (Versed) 2 MG/2ML inj (CANCELED) ONCE PRN INTRA PROCEDURE, Starting on Fri12/31/23 at 1241, Until Fri12/31/23 at 1302, Intra-Op 1241 (Given - Provid er: Dhaval Blanco RN)1242 (Given - Provider: Dhaval Blanco RN)1246 (Given - Provider: Dhaval Blanco RN) documented in this encounter Care Teams Local Flatbed Driver Relationship Specialty Start Date End Date Edel Clay MD [address] [place] [address] [place] [phone] PCP - General Family Medicine 03/03/17 documented as of this encounter
--- OUTSIDE RECORDS SUMMARY | 2024-06-12 02:38 | External Medical Summary | Summary of Care ---
Author Name Unknown Organization [facility] Address [address] [place] [address] Phone [phone] Care Team Providers Care Value Stream Coach Name Role Phone Edel Clay MD Primary Care Provide r Reason for Visit * Reason Onset Date Comments Advice 01/05/2024 Sylvia Encounter Details Date Type Department Care Team (Late st Contact Info) Description 01/05/2024 Telephone Hematology/Oncology, [address] [phone] Monica Ward MD [address] [place] [address] Advice (Sylvia) Allergies Active Allergy Reactions Criticality Noted Date Comments Clindamycin Hives 08/26/2014 Codeine 10/25/2011 "Stupor", drowsy Other Allergy (See Comments) 024 Perfumes, hairspray, candles, etc. Sinus infections, headaches, very sensitive. Penicillins 01/30/2006 Hives ans swelling Sulfa Antibiotics 06/29/2010 Sick to her stomach documented as of this encounter (statuses as of 01/08/2024) Medications Medication Sig Dispensed Refills Start Date [...] as of this encounter (statuses as of 01/08/2024) Active Problems Problem Noted Date Diagnosed Date [...] as of this encounter (statuses as of 01/08/2024) Resolved Problems Problem Noted Date Diagnosed Date [...] Thyroiditis 07/18/2008 06/01/2019 Overview: thyroglobulin antibody >3000 [id number] 08/19/200608/10 Overview: Renamed Per Clinical Trials Billing Project. Pt is a participant in the [facility] (Consortium of Rheumatology Researchers of [place]) national data collection study. For further information please call Dr Temo Castaneda or Kim Ríos, RN, CCRC at [phone] [facility] RESEARCH OTHER*[id number] 08/19/2006 11/06/2009 Overview: Renamed Per Clinical Trials Billing Project. Pt is a participant in the [facility] (Consortium of Rheumatology Researchers of [place]) national data collection study. For further information please call Dr Temo Castaneda or Kim Ríos, RN, CCRC at [phone] Arthritis, rheumatoid 07/01/20062016 Abnormal blood chemistry 05/02/2006 Overview: positive rheumatoid factor. Metabolic syndrome 04/29/2006 0 Overview: insulin level 16 Mixed dyslipidemia 02/06/2006 9 Overview: Per Lipid Taxonomy. chol 192, hdl 26, trig 403 Allergic rhinitis due to pollen 01/30/2006 03/03/2017 Obesity, BMI not known 08/07 Overview: Per Obesity Taxonomy Denture irritation 0 documented as of this encounter (statuses as of 01/08/2024) Immunizations Name Administration Dates Next Due COVID-19 [...] Telephone Encounter - Marcela Orellana RN - 01/08/2024 8:52 AM EDT Treatment is every 3 weeks (so 1 week on, then 2 weeks off). Called patient, she states that someone did let her know she is scheduled correctly. She was asking about fulphila injection- advised her that this is normally scheduled with day 3 treatment as it needs to be given at least 24 hours after chemotherapy. She is trying to plan work schedule. Advised her that we will add appt on, she verbalized understanding. Scheduling: please add injection appt 01/16/24 at 4pm "fulphila" (Dr Ward). Patient already aware that this is being added. Thanks! * Telephone Encounter - Bessie Alexandra OSA - 01/05/2024 10:34 AM EDT Patient is calling , she wants to know if her treatment is scheduled correctly or not. She was thinking she did 1 week and then had 3 weeks off. She did treatment week or Dec 21 and is scheduled for treatment week of 9-2 Please call her back to advise. documented in this encounter Plan of Treatment Upcoming Encounters Date Type Department Care Team (Late st Contact Info) Description 01/13/2024 11:00 AM EDT Laboratory Laboratory [facility] [address] [place] [phone] [place], Lab [address] [place], [place] [address] 01/13/2024 12:00 PM EDT Hem/Onc Treatment Hematology/Oncology Treatment, [address], [place] [phone] [place], Chair 1 Hem On[address] [place] [address] 01/14/2024 2:00 PM EDT Office Visit Hematology/Oncology [facility] [address] [place], [place] [phone] Maddie Suarez, ENAMEL SPRAYER [address] [place] [address] 01/14/2024 2:30 PM EDT Hem/Onc Treatment Hematology/Oncology Treatment, [address], [place] [phone] [place], Chair 10 Hem Onc [address] [place], [place] [address] 01/15/2024 12:00 PM EDT Hem/Onc Treatment Hematology/Oncology Treatment, [address], [place] [phone] [place], Chair 6 Hem Onc [place] [address] [address] [place], [place] [address] 01/15/2024 2:30 PM EDT PulmDiagnostic Pulmonary Function Lab, [facility] [address] [place] [address] [place], Pft [facility] [place] [address] 01/15/2024 3:40 PM EDT Office Visit Pulmonary Medicine, [facility] [place] [address] Eloy Pond MD [address] [facility] [address] 02/06/2024 2:20 PM EDT Office Visit Family Medicine [address] [place] [phone] Amy Han PA-C [address] [place] [address] [place] [address] 10/15/2024 8:40 AM EDT Office Visit Rheumatology [address] [place] [phone] Samy Russo MD [address] [facility] [address] Health Maintenance Due Date Last Done Comments [...] this encounter Medical Devices Implanted Type Area Water Resource Manager Device Identifier Shelf Expiration Date Model / Serial / Lot Port Implant W8f Poly Cath - [id number] Implanted:Qty : 1 on 12/31/2023 by Sin Burroughs MD at OR [facility] Right: Chest CR BARD : PERIPHERAL VASCULAR [id number] 10/09/2024 [id number] / / [id number] documented as of this encounter Care Teams Value Stream Coach Relationship Specialty Start Date End Date Edel Clay MD [address] [place] [address] [place] [address] PCP - General Family Medicine 03/03/17 documented as of this encounter
--- OUTSIDE RECORDS SUMMARY | 2024-06-12 02:38 | External Medical Summary | Summary of Care ---
Author Name Unknown Organization [facility] Address [address] [place] [address] Phone [phone] Care Team Providers Care Medical Editor Name Role Phone Edel Clay MD Primary [...] Procedures PENDING TECENTRIQ & Monica Anderson MD [address] [place], [place] [address] [phone] Anc Hem/Onc Scenery [address] [address] Referral ID Status Reason Start Date Expiration Date V isits Requested Visits Authorized [id number] Authorized 12/17/2023 06/13/2024 999 999 Encounter Details Date Type Department Care Team (Latest Contact Info) Description 01/14/2024 2:30 PM EDT Hem/Onc Treatment Hematology/Oncolog y Treatment, [address] [phone] [place], Chair 10 Hem On[address] [address] Encounter for antineoplastic chemotherapy*; Cancer, [...] involving multiple sites with positive rheumatoid factor ([facility]) INJECT 125 MG ( ONE SYRINGE ) [...] Thyroiditis 07/18/2008 06/01/2019 Overview: thyroglobulin antibody >3000 [id number] 08/19/200608/10 Overview: Renamed Per Clinical Trials Billing Project. Pt is a participant in the [facility] (Consortium of Rheumatology Researchers of [place]) national data collection study. For further information please call Dr Temo Castaneda or Kim Ríos, RN, CCRC at [phone] [facility] RESEARCH OTHER*[id number] 08/19/2006 11/06/2009 Overview: Renamed Per Clinical Trials Billing Project. Pt is a participant in the [employer] (Consortium of Rheumatology Researchers of [place]) national data collection study. For further information please call Dr Temo Castaneda or Kim Ríos RN, CCRC at [phone] Arthritis, rheumatoid 07/01/20062016 Abnormal blood chemistry 05/02/2006 [...] Nursing Notes * Adalgisa Fuentes, RN - 01/14/2024 4:40 PM EDT Goals: Patient [...] Description 01/15/2024 12:00 PM EDT Hem/Onc Treatment Hematology/Oncology Treatment, [place] [address] [place] [address] [place], Chair 6 Hem Onc Scene [address] [facility] [address] 01/15/2024 2:30 PM EDT PulmDiagnostic Pulmonary Function Lab, [facility] [address] [facility] [place] [address] West, Pft [address] [facility] [address] 01/15/2024 3:40 PM EDT Office Visit Pulmonary Medicine, [facility] [address] [facility] [address] Eloy Pond MD [address] [facility] [address] 01/16/2024 4:00 PM EDT Immunization/Injection Hematology/Oncology Treatment, [address] [phone] [place], Chair 2 Hem Onc Scenery [address] [place] [address] [place] [address] 02/06/2024 9:00 AM EDT Office Visit Family Medicine [address] [place] [phone] Amy Han, PA-C [address] [place] [address] [place] [address] 10/15/2024 8:40 AM EDT Office Visit Rheumatology [address] [place] [phone] Samy Russo MD [facility]0 [facility] [place] [address] Health Maintenance Due Date Last Done Comments [...] this encounter Medical Devices Implanted Type Area Truck Rental Service Attendant Device Identifier Shelf Expiration Date Model / Serial / Lot Port Implant W8f Poly Cath - [id number] Implanted:Qty : 1 on 12/31/2023 by Sin Burroughs MD at OR [facility] Right: Chest CR BARD : PERIPHERAL VASCULAR [id number] 10/09/2024 [id number] / / [id number] documented as of this encounter Visit Diagnoses [...] mg documented in this encounter Care Teams Medical Editor Relationship Specialty Start Date End Date Edel Clay MD [address] [place] [address] [place] [address] PCP - General Family Medicine 03/03/17 documented as of this encounter
--- OUTSIDE RECORDS SUMMARY | 2024-06-12 02:38 | External Medical Summary | Summary of Care ---
Author Name Unknown Organization [facility] Address [address] [place] [address] Phone [phone] Care Team Providers Care Shoe Clerk Name Role Phone Edel Clay MD Primary Care Provide r Reason for Visit * Reason Onset Date Comments Advice 01/05/2024 Sylvia Encounter Details Date Type Department Care Team (Late st Contact Info) Description 01/05/2024 Telephone Hematology/Oncology, [address] [phone] Monica Ward MD [address] [place] [address] Advice (Sylvia) Allergies Active Allergy [...] Thyroiditis 07/18/2008 06/01/2019 Overview: thyroglobulin antibody >3000 [id number][id number] 08/19/200608/10 Overview: Renamed Per Clinical Trials Billing Project. Pt is a participant in the [facility] (Consortium of Rheumatology Researchers of [place]) national data collection study. For further information please call Dr Temo Castaneda or Kim Ríos, RN, CCRC at [phone] [facility] RESEARCH OTHER*[id number] 08/19/2006 11/06/2009 Overview: Renamed Per Clinical Trials Billing Project. Pt is a participant in the [facility] (Consortium of Rheumatology Researchers of [place]) national data collection study. For further information please call Dr Temo Castaneda or Kim Ríos, RN, CCRC at [phone] Arthritis, rheumatoid 07/01/20062016 Abnormal blood chemistry 05/02/2006 [...] Miscellaneous Notes * Telephone Encounter - Mar Murrell OSA - 01/08/2024 10:04 AM EDT Apt is scheduled * Telephone Encounter - Marcela Orellana RN [...] please add injection appt 01/16/24 at 4pm "hemanth" (Dr Ward). Patient already aware that this [...] Description 01/13/2024 11:00 AM EDT Laboratory Laboratory [facility] [place] [address] [place] [phone] [place], Lab [place] [address] [address] [place] [address] 01/13/2024 12:00 PM EDT Hem/Onc Treatment Hematology/Oncology Treatment, [address] [phone] [place], Chair 1 Hem Onc [place] [address] [address] [place] [address] 01/14/2024 2:00 PM EDT Office Visit Hematology/Oncology [facility] [place] [address] [address] [place] [phone] Maddie Saurez CRNP [address] [facility] [address] 01/14/2024 2:30 PM EDT Hem/Onc Treatment Hematology/Oncology Treatment, [address] [phone] [place], Chair 10 Hem Onc [facility] [address] [facility] [place] [place] [address] 01/15/2024 12:00 PM EDT Hem/Onc Treatment Hematology/Oncology Treatment, [address] [phone] [place], Chair 6 Hem Onc Scene [address] [facility] [address] 01/15/2024 2:30 PM EDT PulmDiagnostic Pulmonary Function Lab, [facility] 132 [facility] [place] [address] [place], Pft [address] [facility] [place] [address] 01/15/2024 3:40 PM EDT Office Visit Pulmonary Medicine, [facility] 132 [facility] [place] [address] Eloy Pond MD [address] [place] [address] 01/16/2024 4:00 PM EDT Immunization/Injection Hematology/Oncology Treatment, [address] [phone] [place], Chair 2 Hem Onc [address] [place] [address] 02/06/2024 2:20 PM EDT Office Visit Family Medicine [address] [place] [phone] Amy Han PAMaryC [address] [place] [address] [place] [address] 10/15/2024 8:40 AM EDT Office Visit Rheumatology [address] [place] [phone] Samy Russo MD [address] [facility] [place] [address] Health Maintenance Due Date Last Done Comments [...] this encounter Medical Devices Implanted Type Area Market Maker Device Identifier Shelf Expiration Date Model / Serial / Lot Port Implant W8f Poly Cath - [id number] Implanted:Qty : 1 on 12/31/2023 by Sin Burroughs MD at OR [facility] Right: Chest CR BARD : PERIPHERAL VASCULAR [id number] 10/09/2024 [id number] / / [id number] documented as of this encounter Care Teams Shoe Clerk Relationship Specialty Start Date End Date Edel Clay MD [address] [place] [address] [place] [phone] PCP - General Family Medicine 03/03/17 documented as of this encounter
--- OUTSIDE RECORDS SUMMARY | 2024-06-12 02:38 | External Medical Summary ---
Author Name Unknown Address Unknown Organization K09:[facility] [place] [address] Laboratory Report Ordering Provider Test Date Status JOE IBRAHIMJOHNNIE 01/13/2024 11:09:01 Final Observation Date Value Abnormality Reference (Units ) Status WBC, Total 01/13/2024 11:09:01 7.86 4.00-10.8 0 (K/uL) Final RBC 01/13/2024 11:09:01 3.83 3.85-5.15 (M/uL) Final Hemoglobin 01/13/2024 11:09:01 12.5 12.0-15.3 (g/dL) Final HCT 01/13/2024 11:09:01 38.7 36.0-45.2 (%) Final MCV 01/13/2024 11:09:01 101.0 81.5-97.5 (fL) Final MCH 01/13/2024 11:09:01 32.6 27.0-34.0 (pg) Final MCHC 01/13/2024 11:09:01 32.3 32.0-36.0 (g/dL) Final RDW 01/13/2024 11:09:01 15.0 11.5-15.5 (%) Final Platelets 01/13/2024 11:09:01 399 140-400 (K /uL) Final MPV 01/13/2024 11:09:01 9.2 6.6-11.1 ( fL) Final Performing Location [facility] [place] [address]
--- OUTSIDE RECORDS SUMMARY | 2024-06-12 02:38 | External Medical Summary | Summary of Care ---
Author Name Unknown Organization [facility] Address [address] [place] [address] Phone [phone] Care Team Providers Care Cut Out Stitcher Name Role Phone Edel Clay MD [...] PENDING TECENTRIQ & HALEIGHPHILA Monica Ward MD [address] [place] [address] [place] [address] Anc Hem/Onc Scene[address] [address] Referral ID Status Reason Start Date Expiration Date V isits Requested Visits Authorized [id number] Authorized 12/17/2023 06/13/2024 999 999 Encounter Details Date Type Department Care Team (Latest Contact Info) Description 01/13/2024 12:00 PM EDT Hem/Onc Treatment Hematology/Oncolog y Treatment, [address] [phone] [place], Chair 1 Hem Onc [address] [place] [address] Encounter for antineoplastic chemotherapy*; [...] Thyroiditis 07/18/2008 06/01/2019 Overview: thyroglobulin antibody >3000 [id number] 08/19/200608/10 Overview: Renamed Per Clinical Trials Billing Project. Pt is a participant in the [employer] (Consortium of Rheumatology Researchers of [place]) national data collection study. For further information please call Dr Temo Castaneda or Kim Ríos, RN, CCRC at [phone] [facility] RESEARCH OTHER*[id number] 08/19/2006 11/06/2009 Overview: Renamed Per Clinical Trials Billing Project. Pt is a participant in the [employer] (Consortium of Rheumatology Researchers of [place]) national data collection study. For further information please call Dr Temo Castaneda or Kim Ríos RN, CCRC at [phone] Arthritis, rheumatoid 07/01/20062016 Abnormal blood chemistry 05/02/2006 [...] then was fine after waking up OTHER: [place] she had "bone pain" about 1 week [...] 01/14/2024 2:00 PM EDT Office Visit Hematology/Oncology [address] [place] [phone] Maddie Suarez CRNP 400 [facility] [place] [id number] 01/14/2024 2:30 PM EDT Hem/Onc Treatment Hematology/Oncology Treatment, [place] 200 [facility] [place] [phone] [place], Chair 10 Hem Onc [address] [place] [address] 01/15/2024 12:00 PM EDT Hem/Onc Treatment Hematology/Oncology Treatment, [address], [place] [phone] [place], Chair 6 Hem Onc [address] [address] 01/15/2024 2:30 PM EDT PulmDiagnostic Pulmonary Function Lab, [facility] 132 [place] [address] West, Pft 132 [place] [address] 01/15/2024 3:40 PM EDT Office Visit Pulmonary Medicine, [facility] 132 [facility] [place] [address] Eloy Pond MD [address] [facility] [address] 01/16/2024 4:00 PM EDT Immunization/Injection Hematology/Oncology Treatment, [address], [place] [phone] [place], Chair 2 Hem Onc [address] [place], [place] [address] 02/06/2024 2:20 PM EDT Office Visit Family Medicine [address] [place] [phone] Amy Han PA-C [address] [place] [address] [place] [address] 10/15/2024 8:40 AM EDT Office Visit Rheumatology [address] [place] [phone] Samy Russo MD [facility]0 [facility] [place] [address] Health Maintenance Due Date Last Done Comments [...] encounter Medical Devices Implanted Type Area Senior Naval Parachutist Device Identifier Shelf Expiration Date Model / Serial / Lot Port Implant W8f Poly Cath - [id number] Implanted:Qty : 1 on 12/31/2023 by Sin Burroughs MD at OR [facility] Right: Chest CR BARD : PERIPHERAL VASCULAR [id number] 10/09/2024 [id number] / / [id number] documented as of this encounter Visit Diagnoses [...] ONCE PRN Other, Hypersensitivity Reaction, Starting on Fri01/13/24 at 1245, Until Fri01/14/24 at 1244, For 24 hours EPINEPHrine 1 MG/ML inj 0.3 mg 0.3 mg, Intramuscular, ONCE PRN Other, Hypersensitivity Reaction or Anaphylaxis, Starting on Fri01/13/24 at 1245, Until Fri01/14/24 at 1244, For 24 hours hEParin 100 UNIT/ML Lock Flush inj 500 Units 500 Units (5 mL), IV Lock, PRN Other, IV Flush, Starting on Fri01/13/24 at 1245, Until Fri01/14/24 at 1244, For 24 hours, Do not flush if lock, PICC, or central line not in place; IV infusing or unable to flush. Given 01/13/2024 4:29 PM EDT 500 Units Hydrocortisone Sod Suc (PF) (Solu-Cortef) inj 100 mg 100 mg, IV Push, ONCE PRN Other, Hypersensitivity Reaction, Starting on Fri01/13/24 at 1245, Until Fri01/14/24 at 1244, For 24 hours LORAzepam (Ativan) tab 0.5 mg 0.5 mg, Oral, ONCE PRN Anxiety, Nausea, Starting on Fri01/13/24 at 1400, Until Discontinued NSS infusion Intravenous, at 50 mL/hr, PRN, Starting on Fri01/13/24 at 1400, Until Discontinued, Maintenance line Start Infusion 01/13/2024 12:57 PM EDT 50 mL/hr oxygen GAS Inhalation, OXYGEN, First dose on Fri01/13/24 at 1600, Until Discontinued, Device/Managed by: Low [...] Flush, Starting on Fri01/13/24 at 1245, Until Fri01/14/24 at 1244, For 24 hours, Do not flush if lock, PICC, or central line not in place; IV infusing or unable to flush. Given 01/13/2024 4:29 PM EDT 10 mL Inactive Administered Medications [...] 12:59 PM EDT 150 mg 538.4 mL/hr documented in this encounter Care Teams Cut Out Stitcher Relationship Specialty Start Date End Date Edel Clay MD [address] [place] [address] [place] [address] PCP - General Family Medicine 03/03/17 documented as of this encounter
--- OUTSIDE RECORDS SUMMARY | 2024-06-12 02:38 | External Medical Summary | Summary of Care ---
Author Name Unknown Organization [facility] Address [address] [place] [address] Phone [phone] Care Team Providers Care Clinical Ob Name Role Phone Edel Clay MD Primary [...] Procedures PENDING TECENTRIQ & Monica Anderson MD [address] [place], [place] [address] [phone] Anc Hem/Onc Scenery [address] [address] Referral ID Status Reason Start Date Expiration Date V isits Requested Visits Authorized [id number] Authorized 12/17/2023 06/13/2024 999 999 Encounter Details Date Type Department Care Team (Latest Contact Info) Description 01/14/2024 2:30 PM EDT Hem/Onc Treatment Hematology/Oncolog y Treatment, [address] [phone] [place], Chair 10 Hem On[address] [address] Encounter for antineoplastic chemotherapy*; Cancer, [...] as of this encounter (statuses as of 01/14/2024) Medications Medication Sig Dispensed Refills Start Date End Date Status OMEGA-3 FATTY ACIDS 1000 MG PO CAPS 0 07/22/2006 Active Orencia 125 MG/ML Subcutaneous Solution Prefilled Syringe (Abatacept)Indicatio ns:Rheumatoid arthritis involving multiple sites with positive rheumatoid factor ([facility]) INJECT 125 MG ( ONE SYRINGE ) [...] as of this encounter (statuses as of 01/14/2024) Active Problems Problem Noted Date Diagnosed Date [...] as of this encounter (statuses as of 01/14/2024) Resolved Problems Problem Noted Date Diagnosed Date [...] Thyroiditis 07/18/2008 06/01/2019 Overview: thyroglobulin antibody >3000 [id number] 08/19/200608/10 Overview: Renamed Per Clinical Trials Billing Project. Pt is a participant in the [employer] (Consortium of Rheumatology Researchers of [place]) national data collection study. For further information please call Dr Temo Castaneda or Kim Ríos, RN, CCRC at [phone] [employer] RESEARCH OTHER*[id number] 08/19/2006 11/06/2009 Overview: Renamed Per Clinical Trials Billing Project. Pt is a participant in the [employer] (Consortium of Rheumatology Researchers of [place]) national data collection study. For further information please call Dr Temo Castaneda or Kim Ríos RN, CCRC at [phone] Arthritis, rheumatoid 07/01/20062016 Abnormal blood chemistry 05/02/2006 Overview: positive rheumatoid factor. Metabolic syndrome 04/29/2006 0 Overview: insulin level 16 Mixed dyslipidemia 02/06/2006 9 Overview: Per Lipid Taxonomy. chol 192, hdl 26, trig 403 Allergic rhinitis due to pollen 01/30/2006 03/03/2017 Obesity, BMI not known 08/07 Overview: Per Obesity Taxonomy Denture irritation 0 documented as of this encounter (statuses as of 01/14/2024) Immunizations Name Administration Dates Next Due COVID-19 [...] 12:00 PM EDT Hem/Onc Treatment Hematology/Oncology Treatment, [place] [address] [place] [address] [place], Chair 6 Hem Onc Scene 200 [facility] [address] 01/15/2024 2:30 PM EDT PulmDiagnostic Pulmonary Function Lab, [facility] 132 [facility] [place] [address] West, Pft 132 [facility] [address] 01/15/2024 3:40 PM EDT Office Visit Pulmonary Medicine, [facility] 132 [facility] [address] Eloy Pond MD [address] [facility] [address] 01/16/2024 4:00 PM EDT Immunization/Injection Hematology/Oncology Treatment, [address] [phone] [place], Chair 2 Hem Onc Scenery [address] [place] [address] [place] [address] 02/06/2024 9:00 AM EDT Office Visit Family Medicine [address] [place] [phone] Amy Han, PA-C [address] [place] [address] [place] [address] 10/15/2024 8:40 AM EDT Office Visit Rheumatology [address] [place] [phone] Samy Russo MD [facility]0 [facility] [place] [address] Health Maintenance Due Date Last Done Comments [...] this encounter Medical Devices Implanted Type Area Loom Fixer Supervisor Device Identifier Shelf Expiration Date Model / Serial / Lot Port Implant W8f Poly Cath - [id number] Implanted:Qty : 1 on 12/31/2023 by Sin Burroughs MD at OR [facility] Right: Chest CR BARD : PERIPHERAL VASCULAR [id number] 10/09/2024 [id number] / / [id number] documented as of this encounter Visit Diagnoses [...] ONCE PRN Other, Hypersensitivity Reaction, Starting on Fri01/14/24 at 1451, Until Lizbeth 01/15/24 at 1450, For 24 hours EPINEPHrine 1 MG/ML inj 0.3 mg 0.3 mg, Intramuscular, ONCE PRN Other, Hypersensitivity Reaction or Anaphylaxis, Starting on Fri01/14/24 at 1451, Until Lizbeth 01/15/24 at 1450, For 24 hours hEParin 100 UNIT/ML Lock Flush inj 500 Units 500 Units (5 mL), IV Lock, PRN Other, IV Flush, Starting on Fri01/14/24 at 1451, Until Lizbeth 01/15/24 at 1450, For 24 hours, Do not flush if lock, PICC, or central line not in place; IV infusing or unable to flush. Hydrocortisone Sod Suc (PF) (Solu-Cortef) inj 100 mg 100 mg, IV Push, ONCE PRN Other, Hypersensitivity Reaction, Starting on Fri01/14/24 at 1451, Until Fri01/15/24 at 1450, For 24 hours LORAzepam (Ativan) tab 0.5 mg 0.5 mg, Oral, ONCE PRN Anxiety, Nausea, Starting on Fri01/14/24 at 1600, Until Discontinued NSS infusion Intravenous, at 50 mL/hr, PRN, Starting on Fri01/14/24 at 1600, Until Discontinued, Maintenance line Start Infusion 01/14/2024 3:03 PM EDT 50 mL/hr oxygen GAS Inhalation, OXYGEN, First dose on Fri01/14/24 at 1600, Until Discontinued, Device/Managed by: Low [...] Push, PRN Other, IV Flush, Starting on Fri01/14/24 at 1451, Until Lizbeth 01/15/24 at 1450, For 24 hours, Do not flush if lock, PICC, or central line not in place; IV infusing or unable to flush. Inactive Administered Medications - up to 3 [...] 3:36 PM EDT 190 mg 519.5 mL/hr ondansetron (Zofran) tab 8 mg 8 mg, Oral, ONCE, On Fri01/14/24 at 1600, For 1 dose, Give 30 minutes prior to chemotherapy. Given 01/14/2024 3:03 PM EDT 8 mg documented in this encounter Care Teams Clinical Ob Relationship Specialty Start Date End Date Edel Caly MD [address] [place] [address] [place] [phone] PCP - General Family Medicine 03/03/17 documented as of this encounter
--- OUTSIDE RECORDS SUMMARY | 2024-06-12 02:38 | External Medical Summary ---
Author Name Unknown Address Unknown Organization K09:[facility] [address] [place] [address] Laboratory Report Ordering Provider Test Date Status JUAN IBRAHIM 01/13/2024 11:09:01 Final Observation Date Value Abnormality Reference (Units ) Status BUN 01/13/2024 11:09:01 10 6-20 (mg/dL) Final Creatinine 01/13/2024 11:09:01 0.9 0.5-1.0 (mg/dL) Final Glomerular filtration rate/1.73 sq M.predicted [Volume Rate/Area] in Serum, Plasma or Blood by Creatinine-based formula (CKD-EPI) 01/13/2024 11:09:01 78 >=60 (mL/min) Final eGFR is calculated based on the CKD-EPI 2020 equation. Sodium 01/13/2024 11:09:01 141 135-146 (m mol/L) Final Potassium 01/13/2024 11:09:01 3.9 3.5-5.1 (m mol/L) Final Cl 01/13/2024 11:09:01 107 98-107 (mm ol/L) Final CO2 01/13/2024 11:09:01 24 22-32 (mmo l/L) Final Anion gap 01/13/2024 11:09:01 10 7-15 (mmol /L) Final Glucose 01/13/2024 11:09:01 106 70-120 (mg /dL) Final Albumin 01/13/2024 11:09:01 3.9 3.8-5.0 (g /dL) Final AST (Aspartate aminotransferase) 01/13/2024 11:09:01 23 10-35 (U/L) Fin al Alk Phos 01/13/2024 11:09:01 147 Above high normal 35 -130 (U/L) Final Bilirubin, Total 01/13/2024 11:09:01 0.2 <=1 .2 (mg/dL) Final Calcium 01/13/2024 11:09:01 8.9 8.4-10.2 ( mg/dL) Final Protein 01/13/2024 11:09: 7.1 6.0-8.3 (g /dL) Final ALT (Alanine aminotransferase) 01/13/2024 11:09: 11 10-35 (U/L) Neo mann Performing Location [facility] [address] [place] [address]
--- OUTSIDE RECORDS SUMMARY | 2024-06-12 02:38 | External Medical Summary | Summary of Care ---
Author Name Unknown Organization [facility] Address [address] [place] [address] Phone [phone] Care Team Providers Care Ordnance Truck Installation Mechanic Name Role Phone Edel Clay MD Primary Care Provide r Reason for Visit * Reason Onset Date Comments Advice 01/05/2024 Sylvia Encounter Details Date Type Department Care Team (Late st Contact Info) Description 01/05/2024 Telephone Hematology/Oncology, [address] [phone] Monica Ward MD [address] [place] [address] Advice (Sylvia) Allergies Active Allergy [...] Thyroiditis 07/18/2008 06/01/2019 Overview: thyroglobulin antibody >3000 [id number] PS[facility] CENTERSHARMAINE 08/19/200608/10 Overview: Renamed Per Clinical Trials Billing Project. Pt is a participant in the [facility] (Consortium of Rheumatology Researchers of [place]) national data collection study. For further information please call Dr Temo Castaneda or Kim Ríos, RN, CCRC at [phone] [facility] RESEARCH OTHER*[id number] 08/19/2006 11/06/2009 Overview: Renamed Per Clinical Trials Billing Project. Pt is a participant in the [facility] (Consortium of Rheumatology Researchers of [place]) national data collection study. For further information please call Dr Temo Castaneda or Kim Ríos, RN, CCRC at [phone] Arthritis, rheumatoid 07/01/20062016 Abnormal blood chemistry 05/02/2006 [...] Description 01/13/2024 11:00 AM EDT Laboratory Laboratory [facility] [address] [place] [phone] [place], Lab [address] [place], [place] [address] 01/13/2024 12:00 PM EDT Hem/Onc Treatment Hematology/Oncology Treatment, [address], [place] [phone] [place], Chair [address] [place] [address] 01/14/2024 2:00 PM EDT Office Visit Hematology/Oncology [facility] [address] [place], [place] [phone] Maddie Suarez, FAMILY WORKER [address] [place] [address] 01/14/2024 2:30 PM EDT Hem/Onc Treatment Hematology/Oncology Treatment, [address], [place] [phone] [place], Chair 10 Hem Onc [address] [place], [place] [address] 01/15/2024 12:00 PM EDT Hem/Onc Treatment Hematology/Oncology Treatment, [address], [place] [phone] [place], Chair 6 Hem Onc [place] [address] [address] [place], [place] [address] 01/15/2024 2:30 PM EDT PulmDiagnostic Pulmonary Function Lab, [facility] [address] [place] [address] West, Pft [facility] [place] [address] 01/15/2024 3:40 PM EDT Office Visit Pulmonary Medicine, [facility] [place] [address] Eloy Pond MD [address] [facility] [address] 02/06/2024 2:20 PM EDT Office Visit Family Medicine [address] [place] [phone] Amy Han PA-C [address] [place] [address] [place] [address] 10/15/2024 8:40 AM EDT Office Visit Rheumatology [address] [place] [phone] Samy Russo MD [address] [facility] [address] Health Maintenance Due Date Last Done Comments [...] this encounter Medical Devices Implanted Type Area Curtain Drier Device Identifier Shelf Expiration Date Model / Serial / Lot Port Implant W8f Poly Cath - [id number] Implanted:Qty : 1 on 12/31/2023 by Sin Burroughs MD at OR [facility] Right: Chest CR BARD : PERIPHERAL VASCULAR [id number] 10/09/2024 [id number] / / [id number] documented as of this encounter Care Teams Ordnance Truck Installation Mechanic Relationship Specialty Start Date End Date Edel Clay MD [address] [place] [address] [place] [address] PCP - General Family Medicine 03/03/17 documented as of this encounter
--- OUTSIDE RECORDS SUMMARY | 2024-06-12 02:39 | External Medical Summary | Summary of Care ---
Author Name Unknown Organization [facility] Address [address] [place] [address] Phone [phone] Care Team Providers Care Home Health Clinical Supervisor Name Role Phone Edel Clay MD Primary Care Provide r Reason for Visit * Reason Onset Date Comments Forms Request 12/25/2023 Encounter Details Date Type Department Care Team (Late st Contact Info) Description 12/25/2023 Telephone Hematology/Oncology Treatment, [place] [address] [place] [address] Monica Ward MD [address] [place] [phone] Forms Request Allergies Active Allergy Reactions Criticality Noted Date Comments Clindamycin Hives 08/26/2014 Codeine 10/25/2011 "Stupor", drowsy Other Allergy (See Comments) 024 Perfumes, hairspray, candles, etc. Sinus infections, headaches, very sensitive. Penicillins 01/30/2006 Hives ans swelling Sulfa Antibiotics 06/29/2010 Sick to her stomach documented as of this encounter (statuses as of 12/25/2023) Medications Medication Sig Dispensed Refills Start Date [...] other meds) 90 Tablet 3 08/05/2023 Active Albuterol Sulfate HFA 108 (90 Base) MCG/ACT Inhalation Aerosol Solution Inhale 2 Puffs by mouth every 4 hours as needed for Cough, Shortness of Breath or Wheezing (and prior exercise). 18 g 3 08/05/2023 Active Additional Information Patient not taking.Reported on 12/04/2023 Magic Swizzle (Lidocaine-Benadryl- Maalox) oral solution Swish [...] as of this encounter (statuses as of 12/25/2023) Active Problems Problem Noted Date Diagnosed Date [...] as of this encounter (statuses as of 12/25/2023) Resolved Problems Problem Noted Date Diagnosed Date [...] Thyroiditis 07/18/2008 06/01/2019 Overview: thyroglobulin antibody >3000 [id number] MIDWEST DIVISIONSHARMAINE 08/19/200608/10 Overview: Renamed Per Clinical Trials Billing Project. Pt is a participant in the [facility] (Consortium of Rheumatology Researchers [place]) national data collection study. For further information please call Dr Temo Castaneda or Kim Ríos, RN, CCRC at [phone] [facility] RESEARCH OTHER*[id number] 08/19/2006 11/06/2009 Overview: Renamed Per Clinical Trials Billing Project. Pt is a participant in the [facility] (Consortium of Rheumatology Researchers of [place]) national data collection study. For further information please call Dr Temo Castaneda or Kim Ríos, RN, CCRC at [phone] Arthritis, rheumatoid 07/01/20062016 Abnormal blood chemistry 05/02/2006 Overview: positive rheumatoid factor. Metabolic syndrome 04/29/2006 0 Overview: insulin level 16 Mixed dyslipidemia 02/06/2006 9 Overview: Per Lipid Taxonomy. chol 192, hdl 26, trig 403 Allergic rhinitis due to pollen 01/30/2006 03/03/2017 Obesity, BMI not known 08/07 Overview: Per Obesity Taxonomy Denture irritation 0 documented as of this encounter (statuses as of 12/25/2023) Immunizations Name Administration Dates Next Due COVID-19 [...] Telephone Encounter - Marcela Orellana RN - 12/25/2023 2:51 PM EDT FMLA forms for patient/ and return to work form for patient completed. Copies kept for chart, originals given back to patient. Faxed patients paperwork to /Roya [phone] per her request. Patient given short term disability paperwork back- advised her we would fill this out if needed infuture. Patient verbalized understanding. documented in this encounter Plan of Treatment Upcoming Encounters Date Type Department Care Team (Latest Contact Info) Description 12/31/2023 12:00 PM EDT Hospital Encounter OR [facility], Operating Room, [facility] - 4th Floor [address] [place] [address] [place] [address] Sin Burroughs MD [address] [place] [address] 12/31/2023 12:00 PM EDT - 12/31/2023 12:57 PM EDT Surgery OR [facility], Operating Room, [facility] - 4th Floor 400 [place] [address] Sin Burroughs MD [address] [place] [address] INSERT TUNNELED CENTRAL VENOUS ACCESS WITH SUBQ PORT 01/13/2024 11:00 AM EDT Laboratory Laboratory Scenery [place] [address] [place] [phone] [place], Lab Scenery [address] [place] [address] 01/13/2024 12:00 PM EDT Hem/Onc Treatment Hematology/Oncolog y Treatment, [place] [address] [facility] [phone] [place], Chair 1 Hem Onc Scenery [address] [place] [address] [address] 01/14/2024 2:00 PM EDT Office Visit [facility] [place] [address] [place] [phone] Maddie Suarez CRNP [address] [place] [address] 01/14/2024 2:30 PM EDT Hem/Onc Treatment Hematology/Oncolog y Treatment, [place] [address] [facility] [phone] [place], Chair 10 Hem Onc Scenery [address] [place] [address] 01/15/2024 12:00 PM EDT Hem/Onc Treatment Hematology/Oncolog y Treatment, [place] [address] [place] [phone] [place], Chair 6 Hem Onc Scenery 200 [facility] [place] [address] 01/15/2024 2:30 PM EDT PulmDiagnostic Pulmonary Function Lab, [facility] 132 [facility] [place] [address] West, Pft 132 [facility] [place] [address] 01/15/2024 3:40 PM EDT Office Visit Pulmonary Medicine, [facility] 132 [facility] [place] [address] Eloy Pond MD [address] [facility] [place] [address] 02/06/2024 2:20 PM EDT Office Visit Family Medicine [address] [place] [phone] Amy Han, PA-C [address] [place] [address] [place] [address] 10/15/2024 8:40 AM EDT Office Visit Rheumatology [address] [place] [phone] Samy Russo MD [facility]0 [facility] [place] [address] Scheduled Procedures Name Priority Associated Diagnoses Date/Ti me INSERT TUNNELED CENTRAL VENOUS ACCESS WITH SUBQ PORT Small cell lung cancer, right (HCC) Adenocarcinoma of colon metastatic to liver (HCC) 12/31/2023 12:00 PM EDT Health Maintenance Due Date Last [...] Not on filedocumented as of this encounter Care Teams Home Health Clinical Supervisor Relationship Specialty Start Date End Date Edel Clay MD NPI: [id number] [place] [address] [place] [address] PCP - General Family Medicine 03/03/17 documented as of this encounter
--- OUTSIDE RECORDS SUMMARY | 2024-06-12 02:39 | External Medical Summary | Summary of Care ---
Author Name Unknown Organization [facility] Address [address] [place] [address] Phone [phone] Care Team Providers Care Plasma Cutting Machine Operator Name Role Phone Edel Clay [...] PENDING TECENTRIQ & FULPHILA Monica Ward MD [address] [place] [address] [place] [phone] Anc Hem/Onc Scenery [place] [address] [place] [phone] Referral ID Status Reason Start Date Expiration Date V isits Requested Visits Authorized [id number] Authorized 12/17/2023 06/13/2024 [id number] Encounter Details Date Type Department Care Team (Latest Contact Info) Description 12/24/2023 12:30 PM EDT Hem/Onc Treatment Hematology/Oncolog y Treatment, [address] [address] [place], Chair 9 Hem Onc Scenery [address] [place] [address] Encounter for antineoplastic chemotherapy*; Cancer, metastatic [...] as of this encounter (statuses as of 12/24/2023) Medications Medication Sig Dispensed Refills Start Date End Date Status OMEGA-3 FATTY ACIDS 1000 MG PO CAPS 0 07/22/2006 Active Orencia 125 MG/ML Subcutaneous Solution Prefilled Syringe (Abatacept)Indicatio ns:Rheumatoid arthritis involving multiple sites with positive rheumatoid factor ([facility]) INJECT 125 MG ( ONE SYRINGE [...] as of this encounter (statuses as of 12/24/2023) Active Problems Problem Noted Date Diagnosed Date [...] as of this encounter (statuses as of 12/24/2023) Resolved Problems Problem Noted Date Diagnosed Date [...] Thyroiditis 07/18/2008 06/01/2019 Overview: thyroglobulin antibody >3000 [id number] 08/19/200608/10 Overview: Renamed Per Clinical Trials Billing Project. Pt is a participant in the [employer] (Consortium of Rheumatology Researchers of [place]) national data collection study. For further information please call Dr Temo Castaneda or Kim Ríos, RN, CCRC at [phone] [facility] RESEARCH OTHER*[id number] 08/19/2006 11/06/2009 Overview: Renamed Per Clinical Trials Billing Project. Pt is a participant in the [employer] (Consortium of Rheumatology Researchers of [place]) national data collection study. For further information please call Dr Temo Castaneda or Kim Ríos, RN, CCRC at [phone] Arthritis, rheumatoid 07/01/20062016 Abnormal blood chemistry 05/02/2006 Overview: positive rheumatoid factor. Metabolic syndrome 04/29/2006 0 Overview: insulin level 16 Mixed dyslipidemia 02/06/2006 9 Overview: Per Lipid Taxonomy. chol 192, hdl 26, trig 403 Allergic rhinitis due to pollen 01/30/2006 03/03/2017 Obesity, BMI not known 08/07 Overview: Per Obesity Taxonomy Denture irritation 0 documented as of this encounter (statuses as of 12/24/2023) Immunizations Name Administration Dates Next Due COVID-19 [...] Contact Info) Description 12/25/2023 2:30 PM EDT Immunization/Injection Hematology/Oncolog y Treatment, [place] [address] [facility] [phone] [place], Chair 7 Hem [facility] Scenery [facility] [address] 12/31/2023 12:00 PM EDT Hospital Encounter OR [place], Operating Room, [facility] - 4th Floor [address] [place] [address] Sin Burroughs MD [address] [place] [address] 12/31/2023 12:00 PM EDT - 12/31/2023 12:57 PM EDT Surgery OR [place], Operating Room, [facility] - 4th Floor [address] [place] [address] Sin Burroughs MD [address] [place] [address] INSERT TUNNELED CENTRAL VENOUS ACCESS WITH SUBQ PORT 01/13/2024 11:00 AM EDT Laboratory Laboratory [facility] [place] [address] [place] Frank [phone] [place], Lab Scenery [address] [place] [address] 01/13/2024 12:00 PM EDT Hem/Onc Treatment Hematology/Oncolog y Treatment, [place] [facility] [phone] [place], Chair 1 Hem Onc Scenery 200 [facility] [place] [address] 01/14/2024 2:00 PM EDT Office Visit Hematology/Oncolog y [facility] [place] [address] [place] [phone] Maddie Suarez, STORE MANAGEMENT TRAINEE [address] [place] [address] 01/14/2024 2:30 PM EDT Hem/Onc Treatment Hematology/Oncolog y Treatment, [place] [facility] [phone] [place], Chair 10 Hem Onc Scenery [address] [address] 01/15/2024 12:00 PM EDT Hem/Onc Treatment Hematology/Oncolog y Treatment, [place] 200 [facility] [place] [phone] [place], Chair 6 Hem Onc Scenery [address] [place] [address] 01/15/2024 2:30 PM EDT PulmDiagnostic Pulmonary Function Lab, [facility] 132 [facility] [place] [address] [place], Pft 132 [facility] [place] [address] 01/15/2024 3:40 PM EDT Office Visit Pulmonary Medicine, [facility] 132 [facility] [place] [address] Eloy Pond MD [address] [facility] [place] [address] 02/06/2024 2:20 PM EDT Office Visit Family Medicine [address] [place] [phone] Amy Han PA-[place] [address] [place] [address] [place] [address] 10/15/2024 8:40 AM EDT Office Visit Rheumatology [address] [place] [phone] Samy Russo MD [facility] [address] Scheduled Procedures Name Priority Associated Diagnoses Date/Ti [...] liver Small cell lung cancer, right (HCC) Small cell lung cancer, right (HCC) Adenocarcinoma of colon metastatic to liver (HCC) Malignant neoplasm of colon, unspecified site documented in this encounter Administered Medications Active Administered Medications - up to 3 most recent administrations Medication Order MAR Action Action Date Dose Rate Site diphenhydrAMINE (Benadryl) inj 50 mg 50 mg, IV Push, ONCE PRN Other, Hypersensitivity Reaction, Starting on Fri12/24/23 at 1249, Until Fri12/25/23 at 1248, For 24 hours diphenhydrAMINE (Benadryl) inj 50 mg 50 mg, IV Push, ONCE PRN Other, Hypersensitivity Reaction, Starting on Fri12/24/23 at 1336, Until Fri12/25/23 at 1335, For 24 hours EPINEPHrine 1 MG/ML inj 0.3 mg 0.3 mg, Intramuscular, ONCE PRN Other, Hypersensitivity Reaction or Anaphylaxis, Starting on Fri12/24/23 at 1249, Until Fri12/25/23 at 1248, For 24 hours EPINEPHrine 1 MG/ML inj 0.3 mg 0.3 mg, Intramuscular, ONCE PRN Other, Hypersensitivity Reaction or Anaphylaxis, Starting on Fri12/24/23 at 1336, Until Fri12/25/23 at 1335, For 24 hours hEParin 100 UNIT/ML Lock Flush inj 500 Units 500 Units (5 mL), IV Lock, PRN Other, IV Flush, Starting on Fri12/24/23 at 1249, Until Fri12/25/23 at 1248, For 24 hours, Do not flush if lock, PICC, or central line not in place; IV infusing or unable to flush. hEParin 100 UNIT/ML Lock Flush inj 500 Units 500 Units (5 mL), IV Lock, PRN Other, IV Flush, Starting on Fri12/24/23 at 1336, Until Fri12/25/23 at 1335, For 24 hours, Do not flush if lock, PICC, or central line not in place; IV infusing or unable to flush. Hydrocortisone Sod Suc (PF) (Solu-Cortef) inj 100 mg 100 mg, IV Push, ONCE PRN Other, Hypersensitivity Reaction, Starting on Fri12/24/23 at 1249, Until Fri12/25/23 at 1248, For 24 hours Hydrocortisone Sod Suc (PF) (Solu-Cortef) inj 100 mg 100 mg, IV Push, ONCE PRN Other, Hypersensitivity Reaction, Starting on Fri12/24/23 at 1336, Until Lizbeth 12/25/23 at 1335, For 24 hours LORAzepam (Ativan) tab 0.5 mg 0.5 mg, Oral, ONCE PRN Anxiety, Nausea, Starting on Fri12/24/23 at 1400, Until Discontinued NSS infusion Intravenous, at 50 mL/hr, PRN, Starting on Fri12/24/23 at 1400, Until Discontinued, Maintenance line Start Infusion 12/24/2023 12:56 PM EDT 50 mL/hr NSS infusion 500 mL, Intravenous, at 50 mL/hr, CONTINUOUS, Starting on Fri12/24/23 at 1445, Until Lizbeth 12/25/23 at 0044 oxygen GAS Inhalation, OXYGEN, First dose on Fri12/24/23 at 1600, Until Discontinued, Device/Managed by: Low [...] oxygen GAS Inhalation, OXYGEN, First dose on Fri12/24/23 at 1600, Until Discontinued, Device/Managed by: Low [...] Push, PRN Other, IV Flush, Starting on Fri12/24/23 at 1249, Until Fri24 at 1248, For 24 hours, Do not flush if lock, PICC, or central line not in place; IV infusing or unable to flush. sodium chloride 0.9 % flush central line 10 mL 10 mL, IV Push, PRN Other, IV Flush, Starting on Fri12/24/23 at 1336, Until Fri12/25/23 at 1335, For 24 hours, Do not flush if [...] 1:21 PM EDT 190 mg 519.5 mL/hr ondansetron [...] mL/hr documented in this encounter Care Teams Plasma Cutting Machine Operator Relationship Specialty Start Date End Date Edel Clay MD [address] [place] [address] [place] Montalvo [phone] PCP - General Family Medicine 03/03/17 documented as of this encounter
--- OUTSIDE RECORDS SUMMARY | 2024-06-12 02:39 | External Medical Summary | Summary of Care ---
Author Name Unknown Organization [facility] Address [address] [place] [address] Phone [phone] Care Team Providers Care Hotel Assistant General Manager Name Role Phone Edel Clay MD [...] PENDING TECENTRIQ & FULPHILA Monica Ward MD [address] [place], [place] [address]T[place] k[place]ari [phone] Anc Hem/Onc Scenery [address] [phone] Referral ID Status Reason Start Date Expiration Date V isits Requested Visits Authorized [id number] Authorized 12/17/2023 06/13/[phone] Encounter Details Date Type Department Care Team (Latest Contact Info) Description 12/25/2023 2:30 PM EDT Immunization/ Injection Hematology/Oncology Treatment, [address] [phone] [place], Chair 7 Hem On[address] [address] Encounter for antineoplastic chemotherapy*; Cancer, [...] rheumatoid factor ([facility]) INJECT 125 MG ( ONE SYRINGE ) [...] Thyroiditis 07/18/2008 06/01/2019 Overview: thyroglobulin antibody >3000 [id number] 08/19/200608/10 Overview: Renamed Per Clinical Trials Billing Project. Pt is a participant in the [employer] (Consortium of Rheumatology Researchers of [place]) national data collection study. For further information please call Dr Temo Castaneda or Kim Ríos, RN, CCRC at [phone] [facility] RESEARCH OTHER*[id number] 08/19/2006 11/06/2009 Overview: Renamed Per Clinical Trials Billing Project. Pt is a participant in the [employer] (Consortium of Rheumatology Researchers of [place]) national data collection study. For further information please call Dr Temo Castaneda or Kim Ríos, RN, CCRC at [phone] Arthritis, rheumatoid 07/01/20062016 Abnormal blood chemistry 05/02/2006 [...] Nursing Notes * Diya Ness LPN - 12/25/2023 3:40 PM EDT Pt arrived for Fulphila injection. Administered in ROYCE. Pt tolerated well. Discharged in stable condition. documented in this encounter Plan of Treatment Upcoming Encounters Date Type Department Care Team (Latest Contact Info) Description 12/31/2023 12:00 PM EDT Hospital Encounter OR [facility], Operating Room, [facility] - 4th Floor [address] [place] [address] Sin Burroughs MD [address] [place] [address] 12/31/2023 12:00 PM EDT - 12/31/2023 12:57 PM EDT Surgery OR [facility], Operating Room, [facility] - 4th Floor [address] [place] [address] Sin Burroughs MD [address] [place] [address] INSERT TUNNELED CENTRAL VENOUS ACCESS WITH SUBQ PORT 01/13/2024 11:00 AM EDT Laboratory Laboratory [facility] [place] [address] [place] [address] [place], Lab [place] [address] [address]ic Canales [facility] [place] [address] 01/13/2024 12:00 PM EDT Hem/Onc Treatment Hematology/Oncolog y Treatment, [place] [address] [place] [address] [place], Chair 1 Hem Onc [facility] [address] [place] [address] 01/14/2024 2:00 PM EDT Office Visit Hematology/Oncolog y [facility] [place] [address] [place] [address] Maddie Suarez, NKECHI [address] [place] [address] 01/14/2024 2:30 PM EDT Hem/Onc Treatment Hematology/Oncolog y Treatment, [place] 200 [facility], [place] [phone] [place], Chair 10 Hem Onc Scenery 200 [facility] [place] [address] 01/15/2024 12:00 PM EDT Hem/Onc Treatment Hematology/Oncolog y Treatment, [place] 200 [facility], [place] [phone] [place], Chair 6 Hem Onc Scenery 200 [facility] [place] [address] 01/15/2024 2:30 PM EDT PulmDiagnostic Pulmonary Function Lab, [facility] 132 [facility] [place] [address] [place], Pft 132 [facility] [place] [address] 01/15/2024 3:40 PM EDT Office Visit Pulmonary Medicine, [facility] 132 [facility] [place] [address] Eloy Pond MD [address] [facility] [place] [address] 02/06/2024 2:20 PM EDT Office Visit Family Medicine [address] [place] [phone] Amy Han PA-C [address] [place] [address] [place] [address] 10/15/2024 8:40 AM EDT Office Visit Rheumatology [address] [place] [phone] Samy Russo MD [address] [place] [address] Scheduled Procedures Name Priority Associated Diagnoses Date/Ti [...] site documented in this encounter Administered Medications Inactive Administered Medications - up to 3 most recent administrations Medication Order MAR Action Action Date Dose Rate Site Pegfilgrastim-jmdb (Fulphila) inj 6 mg 6 mg, Subcutaneous, ONCE, On Lizbeth 12/25/23 at 1500, For 1 dose Given 12/25/2023 2:26 PM EDT 6 mg Arm L eft Upper documented in this encounter Care Teams Hotel Assistant General Manager Relationship Specialty Start Date End Date Edel Clay MD [address] [place] [address] [place] [address] PCP - General Family Medicine 03/03/17 documented as of this encounter
--- OUTSIDE RECORDS SUMMARY | 2024-06-12 02:39 | External Medical Summary | Summary of Care ---
Author Name Unknown Organization [facility] Address [address] [place] [address] Phone [phone] Care Team Providers Care Machine Applicator Cementer Name Role Phone Edel Clay MD Primary Care Provide r Reason for Visit * Reason Onset Date Comments Precert Future 12/16/2023 Tecentriq, carbo platin, etoposide ac Encounter Details Date Type Department Care Team (Late st Contact Info) Description 12/16/2023 Telephone Hematology/Oncology Treatment, [place] [address] [place] [address] Monica Ward MD [address] [place] [phone] Precert Future (Tecentriq, carboplatin, et... Allergies Active Allergy Reactions Criticality Noted Date Comments Clindamycin Hives 08/26/2014 Codeine 10/25/2011 "Stupor", drowsy Other Allergy (See Comments) 024 Perfumes, hairspray, candles, etc. Sinus infections, headaches, very sensitive. Penicillins 01/30/2006 Hives ans swelling Sulfa Antibiotics 06/29/2010 Sick to her stomach documented as of this encounter (statuses as of 12/26/2023) Medications Medication Sig Dispensed Refills Start Date [...] of Breath. 18 g 11 12/04/2023 Active Hospital, Clinic, or Other Facility Administered [...] as of this encounter (statuses as of 12/26/2023) Active Problems Problem Noted Date Diagnosed Date [...] as of this encounter (statuses as of 12/26/2023) Resolved Problems Problem Noted Date Diagnosed Date [...] Thyroiditis 07/18/2008 06/01/2019 Overview: thyroglobulin antibody >3000 [id number] 08/19/200608/10 Overview: Renamed Per Clinical Trials Billing Project. Pt is a participant in the CORRO (Consortium of Rheumatology Researchers of [place]) national data collection study. For further information please call Dr Temo Castaneda or Kim Ríos, RN, CCRC at [phone] [facility] OTHER*[id number] 08/19/2006 11/06/2009 Overview: Renamed Per Clinical Trials Billing Project. Pt is a participant in the [facility] (Consortium of Rheumatology Researchers of [place]) national data collection study. For further information please call Dr Temo Castaneda or Kim Ríos, RN, CCRC at [phone] Arthritis, rheumatoid 07/01/20062016 Abnormal blood chemistry 05/02/2006 Overview: positive rheumatoid factor. Metabolic syndrome 04/29/2006 0 Overview: insulin level 16 Mixed dyslipidemia 02/06/2006 9 Overview: Per Lipid Taxonomy. chol 192, hdl 26, trig 403 Allergic rhinitis due to pollen 01/30/2006 03/03/2017 Obesity, BMI not known 08/07 Overview: Per Obesity Taxonomy Denture irritation 0 documented as of this encounter (statuses as of 12/26/2023) Immunizations Name Administration Dates Next Due COVID-19 [...] encounter Miscellaneous Notes * Telephone Encounter - Sangeetha Goins OSA - 12/26/2023 8:07 AM EDT Copay cards obtained for [employer] and the [employer] to use if needed. * Telephone Encounter - Sangeetha Goins OSA - 12/24/2023 12:19 PM EDT I am working on the assistance. Please review for OOP estimate * Telephone Encounter - Marcela Orellana RN - 12/23/2023 1:52 PM EDT Both. Zometa has already been screened for assistance so needs OOP cost estimate. Chemo still has to be screened for assistance and OOP cost estimate * Telephone Encounter - Nahum Meredith OSA - 12/23/2023 1:28 PM EDT Are you looking for estimated cost or assistance? * Telephone Encounter - Marcela Orellana RN - 12/22/2023 1:27 PM EDT Per referral for chemo, MAC assistance review needed. Per referral for zometa, PFC review needed. MAC/ PFC: can you please advise on above items. * Telephone Encounter - Mar Murrell OSA - 12/19/2023 10:56 AM EDT Apts scheduled * Telephone Encounter - Marcela Orellana RN - 12/19/2023 10:39 AM EDT Precert approved, referral will be updated shortly. Patient will need labs today (CBCd, CMP, TSH/T4, hep B)- appt does not need to be scheduled for this as will decide during nurse visit if patient will go to lab after or will call lab to come here. Scheduling: please add appts- patient can be given appts when she comes in this afternoon. Friday24 - 4 hour appt "C1D1 tecetriq, carbo, etoposide/ fulphila day 4" (Dr Ward) Friday24 - 2 hour appt "C1D2 etoposide/ fulphila day 4" Friday24 - 2 hour appt "C1D3 etoposide/ fulphila day 4" * Telephone Encounter - Marcela Orellana RN - 12/17/2023 2:38 PM EDT Precert messaged and requested this be changed to fulphila per insurance preference. * Telephone Encounter - Hortensia Faust OSA - 12/17/2023 1:50 PM EDT Udenyca or Fulphila? Code is listed for Fulphila. Auth was sent for * Telephone Encounter - Marcela Orellana RN - 12/17/2023 10:37 AM EDT Udenyca added to plan. Precert: can chemo auth please be obtained as STAT? Goal is to start chemotherapy 12/22/23. Thanks! * Addendum Note - Elizabeth Faria MD - 12/17/2023 10:33 AM EDTAddended by: ELIZABETH FARIA on: 12/17/2023 10:33 AM Modules accepted: Orders * Telephone Encounter - Elizabeth Faria MD - 12/17/2023 10:28 AM EDT She is going to receive carboplatin, etoposide and atezolizumab for metastatic small cell lung cancer. She is at high-risk for febrile neutropenia and would like to give her prophylactic Pegfilgrastim to prevent febrile neutropenia. * Telephone Encounter - Marcela Orellana RN - 12/17/2023 9:07 AM EDT Discussed with Dr Carrion. She would also like patient to receive prophylactic udenyca after each cycle to prevent chemotherapy induced neutropenia. * Telephone Encounter - Mar Murrell OSA - 12/16/2023 1:27 PM EDT Added * Telephone Encounter - Marcela Orellana RN - 12/16/2023 12:34 PM EDT Order received for tecentriq, carbo, etoposide, zometa. Novi plan built and routed for signature. Waiting for auth. Consent signed 12/12/23. Patient consented for pegfilgrastim- message sent to Dr Carrion to clarify if she would like this added to plan. Called patient- patient agreeable to coming Friday for education. Scheduling: please add patient for nurse education visit on Friday12/19/23 at 3pm. Patient aware. Thanks! documented in this encounter Plan of Treatment Upcoming Encounters Date Type Department Care Team (Latest Contact Info) Description 12/31/2023 1:03 PM EDT Hospital Encounter OR [facility], Operating Room, [facility] - 4th Floor [address] [place] [address] Sin Burroughs MD [address] [facility] [place] [address] 12/31/2023 1:03 PM EDT - 12/31/2023 2:00 PM EDT Surgery OR [facility], Operating Room, [facility] - 4th Floor [address] [place] [address] Sin Burroughs MD [address] [place] [address] INSERT TUNNELED CENTRAL VENOUS ACCESS WITH SUBQ PORT 01/13/2024 11:00 AM EDT Laboratory Laboratory [facility] [place] [address] [place] [phone] [place], Lab [address] [facility] [place] [address] 01/13/2024 12:00 PM EDT Hem/Onc Treatment Hematology/Oncolog y Treatment, [place] [address] [place] [phone] [place], Chair 1 Hem Onc [facility] [address] [place] [address] [address] 01/14/2024 2:00 PM EDT Office Visit Hematology/Oncolog y [facility] [place] [address] [place] [address] Maddie Suarez CRNP 400 [facility] [place] [address] 01/14/2024 2:30 PM EDT Hem/Onc Treatment Hematology/Oncolog y Treatment, [place] 200 [facility], [place] [phone] [place], Chair 10 Hem Onc Scenery 200 [facility] [place] [address] 01/15/2024 12:00 PM EDT Hem/Onc Treatment Hematology/Oncolog y Treatment, [place] 200 [facility], [place] [phone] [place], Chair 6 Hem Onc Scenery 200 [facility] [place] [address] 01/15/2024 2:30 PM EDT PulmDiagnostic Pulmonary Function Lab, [facility] [address] [facility] [place] [address] [address], [address] 132 [facility] [place] [address] 01/15/2024 3:40 PM EDT Office Visit Pulmonary Medicine, [facility] [address] [facility] [place] [address] Eloy Pond [facility] [address] [facility] [address] 02/06/2024 2:20 PM EDT Office Visit Family Medicine [address] [place] [phone] Amy Han PA-C [address] [place] [address] [place] [address] 10/15/2024 8:40 AM EDT Office Visit Rheumatology [address] [place] [phone] Samy Russo MD [address] [place] [address] Scheduled Procedures Name Priority Associated Diagnoses Date/Ti me INSERT TUNNELED CENTRAL VENOUS ACCESS WITH SUBQ PORT Small cell lung cancer, right (HCC) Adenocarcinoma of colon metastatic to liver (HCC) 12/31/2023 1:03 PM EDT Health Maintenance Due Date Last [...] Not on filedocumented as of this encounter Results * HEPATITIS B CORE ANTIBODIES IGG AND IGM (12/19/2023 4:12 PM EDT) Hepatitis B Core Antibodies IgG and IgM Negative Negative 12/20/2023 8:13 AM EDT [facility] [place] Venous blood specimen / Unknown Venipuncture / Unknown 12/19/2023 4:12 PM EDT 12/19/2023 4:12 PM EDT Monica Ward MD LAB BLOOD ORDERABLES Performing Organization Address City/[facility] Co de Phone Number [facility] [address] [place] [address] * HEPATITIS B SURFACE ANTIGEN (12/19/2023 4:12 PM EDT) Pathologist [facility] Hepatitis B Surface Antigen Negative Negative 12/20/2023 8:13 AM EDT [facility] Blood Venous blood specimen / Unknown Venipuncture / Unknown 12/19/2023 4:12 PM EDT 12/19/2023 4:12 PM EDT Monica Ward MD LAB BLOOD ORDERABLES [facility] [address] [place] [address] * HEPATITIS B SURFACE ANTIBODY (12/19/2023 4:12 PM EDT) Hepatitis B Surface Antibody, Quantitative <3.5 mIU/mL 12/20/2023 8:13 AM EDT [facility] Hepatitis B Surface Antibody, Qualitative Negative 12/20/2023 8:13 AM EDT [facility] Hepatitis B Surface Antibody, Interpretation NOT immune to Hepatitis B Virus 12/20/2023 8:13 AM EDT [facility] Comment: POSITIVE: >=11.5 mIU/mL INDETERMINATE: 8.5-<11.5 mIU/mL NEGATIVE: <8.5 mIU/mL Blood Venous blood specimen / Unknown Venipuncture / Unknown 12/19/2023 4:12 PM EDT 12/19/2023 4:12 PM EDT Monica Ward MD LAB BLOOD ORDERABLES [facility] [address] [place] [facility] [place] [address] documented in this encounter Visit Diagnoses Diagnosis Small cell lung cancer, right (HCC)- Primary Metastatic adenocarcinoma to liver (HCC) Secondary malignant neoplasm of liver Cancer, metastatic to bone (HCC) Secondary malignant neoplasm of bone and bone marrow Small cell lung cancer, right (HCC) Adenocarcinoma of colon metastatic to liver (HCC) Malignant neoplasm of colon, unspecified site documented in this encounter Care Teams Machine Applicator Cementer Relationship Specialty Start Date End Date Edel Clay MD [address] [place] [address] [place] [address] PCP - General Family Medicine 03/03/17 documented as of this encounter
--- OUTSIDE RECORDS SUMMARY | 2024-06-12 02:40 | External Medical Summary | Summary of Care ---
Author Name Unknown Organization [facility] Address [address] [place] [address] Phone [phone] Care Team Providers Care Building Contractor Name Role Phone Edel Clay MD Primary Care Provide r Reason for Visit * Reason Onset Date Comments Precert Future 12/16/2023 Tecentriq, carbo platin, etoposide ac Encounter Details Date Type Department Care Team (Late st Contact Info) Description 12/16/2023 Telephone Hematology/Oncology Treatment, [place] [address] [place] [address] Monica Ward MD [address] [place] [phone] Precert Future (Tecentriq, carboplatin, et... Allergies [...] Thyroiditis 07/18/2008 06/01/2019 Overview: thyroglobulin antibody >3000 [id number] 08/19/200608/10 Overview: Renamed Per Clinical Trials Billing Project. Pt is a participant in the CORRO (Consortium of Rheumatology Researchers of [place]) national data collection study. For further information please call Dr Temo Castaneda or Kim Ríos, RN, CCRC at [phone] [facility] RESEARCH OTHER*[id number] 08/19/2006 11/06/2009 Overview: Renamed Per Clinical Trials Billing Project. Pt is a participant in the [facility] (Consortium of Rheumatology Researchers of [place]) national data collection study. For further information please call Dr Temo Castaneda or iKm Ríos, RN, CCRC at [phone] Arthritis, rheumatoid 07/01/20062016 Abnormal blood chemistry 05/02/2006 [...] appts when she comes in this afternoon. Friday12/22/23 - 4 hour appt "C1D1 tecetriq, carbo, etoposide/ fulphila day 4" (Dr Ward) Friday12/23/23 - 2 hour appt "C1D2 etoposide/ fulphila day 4" Friday12/24/23 - 2 hour appt "C1D3 etoposide/ fulphila [...] Order received for tecentriq, carbo, etoposide, zometa. [place] plan built and routed for signature. Waiting [...] PM EDT Hem/Onc Treatment Hematology/Oncolog y Treatment, [place] 200 [facility] [place] [phone] [place], Chair 9 Hem Onc Scenery 200 [facility] [place] [address] 12/31/2023 12:00 PM EDT Hospital Encounter OR [facility], Operating Room, [facility] - 4th Floor [address] [place] [address] Sin Burroughs MD [address] [place] [address] 12/31/2023 12:00 PM EDT - 12/31/2023 12:57 PM EDT Surgery OR [facility], Operating Room, [facility] - 4th Floor [address] [place] [address] Sin Burroughs MD [address] [place] [address] INSERT TUNNELED CENTRAL VENOUS ACCESS WITH SUBQ PORT 01/13/2024 11:00 AM EDT Laboratory Laboratory [facility] [place] [address] [place] [phone] [place], Lab [facility] [address] [place] [address] [address] 01/13/2024 12:00 PM EDT Hem/Onc Treatment Hematology/Oncolog y Treatment, [place] [address] [place] [phone] [place], Chair 1 Hem Onc Scenery [address] [place] [address] [address] 01/14/2024 2:00 PM EDT Office Visit Hematology/Oncolog y [facility] [place] [address] [place] [phone] Maddie Suarez CRNP [address] [place] [address] 01/14/2024 2:30 PM EDT Hem/Onc Treatment Hematology/Oncolog y Treatment, [place] [address] [facility], [place] [phone] [place], Chair 10 Hem Onc [address] [place] [address] 01/15/2024 12:00 PM EDT Hem/Onc Treatment Hematology/Oncolog y Treatment, [place] 200 [facility], [place] [phone] [place], Chair 6 Hem Onc [address] [place] [address] 01/15/2024 2:30 PM EDT PulmDiagnostic Pulmonary Function Lab, [facility] [address] [facility] [place] [address] [address], [address] [facility] [place] [address] 01/15/2024 3:40 PM EDT Office Visit Pulmonary Medicine, [facility] [address] [facility] [place] [address] Eloy Pond MD [address] [facility] [address] 02/06/2024 2:20 PM EDT Office Visit Family Medicine [address] [place] [phone] Amy Han PA-C [address] [place] [address] [place] [address] 10/15/2024 8:40 AM EDT Office Visit Rheumatology [address] [place] [phone] Samy Russo MD [address] [employer] [place] [address] Scheduled Procedures Name Priority Associated Diagnoses Date/Ti [...] Negative Negative 12/20/2023 8:13 AM EDT LABORATORY [facility] Blood Venous blood specimen / Unknown Venipuncture / Unknown 12/19/2023 4:12 PM EDT 12/19/2023 4:12 PM EDT Monica Ward MD LAB BLOOD ORDERABLES Performing Organization Address City/[facility] Co de Phone Number LABORATORY [facility] [address] [place] [address] * HEPATITIS B SURFACE ANTIGEN (12/19/2023 4:12 PM EDT) Pathologist [facility] Hepatitis B Surface Antigen Negative Negative 12/20/2023 8:13 AM EDT LABORATORY [facility] Blood Venous blood specimen / Unknown Venipuncture / Unknown 12/19/2023 4:12 PM EDT 12/19/2023 4:12 PM EDT Monica Ward MD LAB BLOOD ORDERABLES LABORATORY [facility] [address] [place] [address] * HEPATITIS B SURFACE ANTIBODY (12/19/2023 4:12 PM EDT) Hepatitis B Surface Antibody, Quantitative <3.5 mIU/mL 12/20/2023 8:13 AM EDT LABORATORY [facility] Hepatitis B Surface Antibody, Qualitative Negative 12/20/2023 8:13 AM EDT [facility] Hepatitis B Surface Antibody, Interpretation NOT immune to Hepatitis B Virus 12/20/2023 8:13 AM EDT [facility] Comment: POSITIVE: >=11.5 mIU/mL INDETERMINATE: 8.5-<11.5 mIU/mL NEGATIVE: <8.5 mIU/mL Blood Venous blood specimen / Unknown Venipuncture / Unknown 12/19/2023 4:12 PM EDT 12/19/2023 4:12 PM EDT Monica Ward MD LAB BLOOD ORDERABLES [facility] [address] [place] [address] documented in this encounter Visit [...] site documented in this encounter Care Teams Building Contractor Relationship Specialty Start Date End Date Edel Clay MD [address] [place] [address] [place] [address] PCP - General Family Medicine 03/03/17 documented as of this encounter
--- OUTSIDE RECORDS SUMMARY | 2024-06-12 02:40 | External Medical Summary | Summary of Care ---
Author Name Unknown Organization [facility] Address [address] [place] [address] Phone [phone] Care Team Providers Care Financial Administrative Assistant Name Role Phone Edel Clay MD [...] PENDING TECENTRIQ & HALEIGHPHILA Monica Ward MD [address] [place] [address] [place] [address] Anc Hem/Onc Scene[address] [address] Referral ID Status Reason Start Date Expiration Date V isits Requested Visits Authorized [id number] Authorized 12/17/2023 06/13/2024 999 [id number] Encounter Details Date Type Department Care Team (Latest Contact Info) Description 12/22/2023 12:00 PM EDT Hem/Onc Treatment Hematology/Oncolog y Treatment, [address] [address] [place], Chair 3 Hem Onc [address] [place] [address] Encounter for antineoplastic chemotherapy*; Cancer, metastatic [...] as of this encounter (statuses as of 12/22/2023) Medications Medication Sig Dispensed Refills Start Date [...] of Breath. 18 g 11 12/04/2023 Active dexAMETHasone 4 MG Oral Tablet (Decadron)Indication s:Encounter for antineoplastic chemotherapy,Cancer, metastatic to bone (HCC),Metastatic adenocarcinoma to liver (HCC),Small cell lung cancer, right (HCC) Take 2 Tablets by mouth in the morning for 3 days. With food on days 2, 3, and 4 of chemo.. Do not start before December 20, 2023. 24 Tablet 12/20/2023 4 Active Prochlorperazine Maleate 10 MG Oral Tablet (Compazine)Indicatio ns:Encounter for antineoplastic chemotherapy,Cancer, metastatic to bone (HCC),Metastatic adenocarcinoma to liver (HCC),Small cell lung cancer, right (HCC) Take 1 Tablet by mouth every 6 hours as needed for Nausea. 30 Tablet 5 12/19/2023 Active OLANZapine 10 MG Oral Tablet (zyPREXA)Indications :Encounter for antineoplastic chemotherapy,Cancer, metastatic to bone (HCC),Metastatic adenocarcinoma to liver (HCC),Small cell lung cancer, right (HCC) Take 1 Tablet by mouth at bedtime for 4 days. On days 1, 2, 3, and 4 of chemo. 16 Tablet 12/19/2023 4 Active Lidocaine-Prilocaine 2.5-2.5 % External Cream (Emla)Indications:Sm [...] as of this encounter (statuses as of 12/22/2023) Active Problems Problem Noted Date Diagnosed Date [...] as of this encounter (statuses as of 12/22/2023) Resolved Problems Problem Noted Date Diagnosed Date [...] Thyroiditis 07/18/2008 06/01/2019 Overview: thyroglobulin antibody >3000 [id number] 08/19/200608/10 Overview: Renamed Per Clinical Trials Billing Project. Pt is a participant in the [facility] (Consortium of Rheumatology Researchers of [place]) national data collection study. For further information please call Dr Temo Castaneda or Kim Ríos, RN, CCRC at [phone] [facility] RESEARCH OTHER*[id number] 08/19/2006 11/06/2009 Overview: Renamed Per Clinical Trials Billing Project. Pt is a participant in the [facility] (Consortium of Rheumatology Researchers of [place]) national data collection study. For further information please call Dr Temo Castaneda or Kim Ríos, RN, CCRC at [phone] Arthritis, rheumatoid 07/01/20062016 Abnormal blood chemistry 05/02/2006 Overview: positive rheumatoid factor. Metabolic syndrome 04/29/2006 0 Overview: insulin level 16 Mixed dyslipidemia 02/06/2006 9 Overview: Per Lipid Taxonomy. chol 192, hdl 26, trig 403 Allergic rhinitis due to pollen 01/30/2006 03/03/2017 Obesity, BMI not known 08/07 Overview: Per Obesity Taxonomy Denture irritation 0 documented as of this encounter (statuses as of 12/22/2023) Immunizations Name Administration Dates Next Due COVID-19 [...] AM EDT Hem/Onc Treatment Hematology/Oncolog y Treatment, [place] [facility] [phone] 12/24/2023 12:30 PM EDT Hem/Onc Treatment Hematology/Oncolog y Treatment, [place] [address] [facility] [phone] [place], Chair 9 Hem Onc [facility] 200 [place] [address] 12/31/2023 12:00 PM EDT Hospital Encounter OR [facility], Operating Room, [facility] - 4th Floor [address] [place] [address] Sin Burroughs MD 400 [place] [address] 12/31/2023 12:00 PM EDT - 12/31/2023 12:57 PM EDT Surgery OR [facility], Operating Room, [facility] - 4th Floor [address] [place] [address] Sin Burroughs MD [address] [place] [address] INSERT TUNNELED CENTRAL VENOUS ACCESS WITH SUBQ PORT 01/13/2024 11:00 AM EDT Laboratory Laboratory Radha Bal[place] [address] [place] [phone] [place], Lab Dominic [address] [place] [address] 01/13/2024 12:00 PM EDT Hem/Onc Treatment Hematology/Oncolog y Treatment, [place] 200 [facility] [place] [phone] [place], Chair 1 Hem Onc [facility] [address] [place] [address] 01/14/2024 2:00 PM EDT Office Visit Hematology/Oncolog y Scenery [place] 200 [place] [phone] Maddie Suarez, INTERIOR HORTICULTURIST [facility] [place] [id number] 01/14/2024 2:30 PM EDT Hem/Onc Treatment Hematology/Oncolog y Treatment, [place] [facility], [place] [phone] [place], Chair 10 Hem Onc Scenery [address] [facility] [place] [address] 01/15/2024 12:00 PM EDT Hem/Onc Treatment Hematology/Oncolog y Treatment, [place] [facility], [place] [phone] [place], Chair 6 Hem Onc Scenery 200 [facility] [place], [place] [address] 01/15/2024 2:30 PM EDT PulmDiagnostic Pulmonary Function Lab, [facility] 132 [facility] [place] [address] West, Pft 132 [facility] [place] [address] 01/15/2024 3:40 PM EDT Office Visit Pulmonary Medicine, [facility] 132 [facility] [place] [address] Eloy Pond MD [address] [place] [id number] 02/06/2024 2:20 PM EDT Office Visit [address] [phone] KoAmy chris PA-C [address] [place] [address] [place] [address] 10/15/2024 8:40 AM EDT Office Visit Rheumatology [address] [place] [phone] Samy Russo MD [facility] [place] [address] Scheduled Procedures Name Priority Associated Diagnoses Date/Ti [...] ONCE PRN Other, Hypersensitivity Reaction, Starting on Fri12/22/23 at 1244, Until Fri12/23/23 at 1243, For 24 hours EPINEPHrine 1 MG/ML inj 0.3 mg 0.3 mg, Intramuscular, ONCE PRN Other, Hypersensitivity Reaction or Anaphylaxis, Starting on Fri12/22/23 at 1244, Until Fri12/23/23 at 1243, For 24 hours hEParin 100 UNIT/ML Lock Flush inj 500 Units 500 Units (5 mL), IV Lock, PRN Other, IV Flush, Starting on Fri12/22/23 at 1244, Until Fri12/23/23 at 1243, For 24 hours, Do not flush if lock, PICC, or central line not in place; IV infusing or unable to flush. Given 12/22/2023 4:39 PM EDT 500 Units Hydrocortisone Sod Suc (PF) (Solu-Cortef) inj 100 mg 100 mg, IV Push, ONCE PRN Other, Hypersensitivity Reaction, Starting on Fri12/22/23 at 1244, Until Fri12/23/23 at 1243, For 24 hours LORAzepam (Ativan) tab 0.5 mg 0.5 mg, Oral, ONCE PRN Anxiety, Nausea, Starting on Fri12/22/23 at 1345, Until Discontinued NSS infusion Intravenous, at 50 mL/hr, PRN, Starting on Fri12/22/23 at 1345, Until Discontinued, Maintenance line Start Infusion 12/22/2023 12:47 PM EDT 50 mL/hr oxygen GAS Inhalation, OXYGEN, First dose on Fri12/22/23 at 1600, Until Discontinued, Device/Managed by: Low [...] Flush, Starting on Fri12/22/23 at 1244, Until Fri12/23/23 at 1243, For 24 hours, Do not flush if lock, PICC, or central line not in place; IV infusing or unable to flush. Given 12/22/2023 4:38 PM EDT 10 mL Inactive Administered Medications [...] 12:48 PM EDT 150 mg 538.4 mL/hr documented in this encounter Care Teams Financial Administrative Assistant Relationship Specialty Start Date End Date Edel Clay MD [address] [place] [address] [place] [address] PCP - General Family Medicine 03/03/17 documented as of this encounter
--- OUTSIDE RECORDS SUMMARY | 2024-06-12 02:40 | External Medical Summary | Summary of Care ---
Author Name Unknown Organization [facility] Address [address] [place] [address] Phone [phone] Care Team Providers Care Hand Paint Mixer Name Role Phone Edel Clay MD Primary [...] PENDING TECENTRIQ & HALEIGHPHILA Monica Ward MD [address] [place] [address] [place] [phone] Anc Hem/Onc Scene[address] [address] Referral ID Status Reason Start Date Expiration Date V isits Requested Visits Authorized [id number] Authorized 12/17/2023 06/13/[phone] Encounter Details Date Type Department Care Team (Latest Contact Info) Description 12/22/2023 12:00 PM EDT Hem/Onc Treatment Hematology/Oncolog y Treatment, [address] [phone] [place], Chair 3 Hem Onc [address] [place] [address] Encounter for antineoplastic chemotherapy*; Cancer, metastatic [...] Thyroiditis 07/18/2008 06/01/2019 Overview: thyroglobulin antibody >3000 [id number] 08/19/200608/10 Overview: Renamed Per Clinical Trials Billing Project. Pt is a participant in the [facility] (Consortium of Rheumatology Researchers of [place]) national data collection study. For further information please call Dr Temo Castaneda or Kim Ríos, RN, CCRC at [phone] [facility] RESEARCH OTHER*[id number] 08/19/2006 11/06/2009 Overview: Renamed Per Clinical Trials Billing Project. Pt is a participant in the [facility] (Consortium of Rheumatology Researchers of [place]) national data collection study. For further information please call Dr Temo Castaneda or Kim Ríos, RN, CCRC at [phone] Arthritis, rheumatoid 07/01/20062016 Abnormal blood chemistry 05/02/2006 [...] Notes * Madeline Crocker RN - 12/22/2023 12:58 [...] AM EDT Hem/Onc Treatment Hematology/Oncolog y Treatment, [address] [address] 12/24/2023 12:30 PM EDT Hem/Onc Treatment Hematology/Oncolog y Treatment, [address] [phone] [place], Chair 9 Hem Onc Scenery [address] [place] [address] 12/31/2023 12:00 PM EDT Hospital Encounter OR [facility], Operating Room, [facility] - 4th Floor 400 [place] [address] Sin Burroughs MD [address] [place] [address] 12/31/2023 12:00 PM EDT - 12/31/2023 12:57 PM EDT Surgery OR [facility], Operating Room, [facility] - 4th Floor 400 [place] [address] Sin Burroughs MD [address] [place] [address] INSERT TUNNELED CENTRAL VENOUS ACCESS WITH SUBQ PORT 01/13/2024 11:00 AM EDT Laboratory [facility] [place] [address] [place] [phone] Bal[place]ina Lab [facility] [address] [facility] [place] [address] 01/13/2024 12:00 PM EDT Hem/Onc Treatment Hematology/Oncolog y Treatment [place] [address] [place] [phone] [place], Chair 1 Hem Onc Scenery [address] [place] [address] 01/14/2024 2:00 PM EDT Office Visit Hematology/Oncolog y Dominic Mortensen [place] [address] [place] [phone] Maddie Suarez CRNP [address] [place] [address] 01/14/2024 2:30 PM EDT Hem/Onc Treatment Hematology/Oncolog y Treatment, [place] 200 [facility], [place] [phone] Park, Chair 10 Hem Onc [address] [place] [address] 01/15/2024 12:00 PM EDT Hem/Onc Treatment Hematology/Oncolog y Treatment, [place] 200 [facility], [place] [address] [place], Chair 6 Hem Onc [facility] 200 [place] [address] 01/15/2024 2:30 PM EDT PulmDiagnostic Pulmonary Function Lab, [facility] 132 [facility] [place] [address] West, Pft 132 [facility] [place] [address] 01/15/2024 3:40 PM EDT Office Visit Pulmonary Medicine, [facility] 132 [facility] [place] [address] Eloy Pond MD [address] [facility] [address] 02/06/2024 2:20 PM EDT Office Visit Family Medicine [address] [place] [phone] Amy Han PA-C [address] [place] [address] [place] [address] 10/15/2024 8:40 AM EDT Office Visit Rheumatology [address] [place] [phone] Samy Russo MD [facility] [place] [address] Scheduled Procedures Name Priority Associated Diagnoses Date/Ti [...] mL/hr documented in this encounter Care Teams Hand Paint Mixer Relationship Specialty Start Date End Date Edel Clay MD [address] [place] [address] [place] [address] PCP - General Family Medicine 03/03/17 documented as of this encounter
--- OUTSIDE RECORDS SUMMARY | 2024-06-12 02:40 | External Medical Summary | Summary of Care ---
Author Name Unknown Organization [facility] Address [address] [place] [address] Phone [phone] Care Team Providers Care Cook Box Filler Name Role Phone Edel Clay MD Primary [...] PENDING TECENTRIQ & HALEIGHPHILA Monica Ward MD [address] [place] [address] [place] [address] Anc Hem/Onc Scene[address] [address] Referral ID Status Reason Start Date Expiration Date V isits Requested Visits Authorized [id number] Authorized 12/17/2023 06/13/[phone] Encounter Details Date Type Department Care Team (Latest Contact Info) Description 12/22/2023 12:00 PM EDT Hem/Onc Treatment Hematology/Oncolog y Treatment, [address] [phone] [place], Chair 3 Hem Onc [address] [place] [address] Encounter for antineoplastic chemotherapy*; Cancer, metastatic [...] Thyroiditis 07/18/2008 06/01/2019 Overview: thyroglobulin antibody >3000 [id number][facility] 08/19/200608/10 Overview: Renamed Per Clinical Trials Billing Project. Pt is a participant in the [facility] (Consortium of Rheumatology Researchers of [place]) national data collection study. For further information please call Dr Temo Castaneda or Kim Ríos, RN, CCRC at [phone] [facility] RESEARCH OTHER*[id number] 08/19/2006 11/06/2009 Overview: Renamed Per Clinical Trials Billing Project. Pt is a participant in the [facility] (Consortium of Rheumatology Researchers of [place]) national data collection study. For further information please call Dr Temo Castaneda or Kim Ríos, RN, CCRC at [phone] Arthritis, rheumatoid 07/01/20062016 Abnormal blood chemistry 05/02/2006 [...] AM EDT Hem/Onc Treatment Hematology/Oncolog y Treatment, [address] [address] 12/24/2023 12:30 PM EDT Hem/Onc Treatment Hematology/Oncolog y Treatment, [address] [address] [place], Chair 9 Hem Onc Scenery [address] [place] [address] 12/31/2023 12:00 PM EDT Hospital Encounter OR [facility], Operating Room, [facility] - 4th Floor 400 [place] [address] Sin Burroughs MD [address] [place] [place] [address] 12/31/2023 12:00 PM EDT - 12/31/2023 12:57 PM EDT Surgery OR [facility], Operating Room, [facility] - 4th Floor 400 [place] [address] Sin Burroughs MD [address] [place] [address] INSERT TUNNELED CENTRAL VENOUS ACCESS WITH SUBQ PORT 01/13/2024 11:00 AM EDT Laboratory [facility] [place] [address] [place] [phone] Bal[place]ina Lab [facility] [address] [facility] [place] [address] 01/13/2024 12:00 PM EDT Hem/Onc Treatment Hematology/Oncolog y Treatment [place] [address] [place] [phone] [place], Chair 1 Hem Onc Scenery [address] [place] [address] 01/14/2024 2:00 PM EDT Office Visit Hematology/Oncolog y Dominic Mortensen [place] [address] [place] [phone] Maddie Suarez CRNP [address] [place] [address] 01/14/2024 2:30 PM EDT Hem/Onc Treatment Hematology/Oncolog y Treatment, [place] 200 [facility], [place] [phone] Park, Chair 10 Hem Onc [address] [place] [address] 01/15/2024 12:00 PM EDT Hem/Onc Treatment Hematology/Oncolog y Treatment, [place] 200 [facility], [place] [address] [place], Chair 6 Hem Onc [facility] 200 [facility] [place] [address] 01/15/2024 2:30 PM EDT PulmDiagnostic Pulmonary Function Lab, [facility] 132 [facility] [place] [address] West, Pft 132 [facility] [place] [address] 01/15/2024 3:40 PM EDT Office Visit Pulmonary Medicine, [facility] 132 [facility] [place] [address] Eloy Pond MD [address] [facility] [address] 02/06/2024 2:20 PM EDT Office Visit Family Medicine [address] [place] [phone] Amy Han PA-C [address] [place] [address] [place] [address] 10/15/2024 8:40 AM EDT Office Visit Rheumatology [address] [place] [phone] Samy Russo MD [facility] [place] [address] Scheduled Procedures Name Priority Associated Diagnoses Date/Ti [...] mL/hr documented in this encounter Care Teams Cook Box Filler Relationship Specialty Start Date End Date Edel Clay MD [address] [place] [address] [place] [address] PCP - General Family Medicine 03/03/17 documented as of this encounter
--- OUTSIDE RECORDS SUMMARY | 2024-06-12 02:40 | External Medical Summary | Summary of Care ---
Author Name Unknown Organization [facility] Address [address] [place] [address] Phone [phone] Care Team Providers Care Machine Operator Helper Name Role Phone Edel Clay MD Primary Care Provide r Reason for Visit * Reason Comments Treatment * Episode Based Medications (Routine) - Authorized Specialty Diagnoses / Procedures Referred By Contac t Referred To Contact Diagnoses Encounter for antineoplastic chemotherapy Cancer, metastatic to bone (HCC) Metastatic adenocarcinoma to liver (HCC) Small cell lung cancer, right (HCC) Procedures PENDING TECENTRIQ & Monica Anderson MD [address] [place] [address] [place] [address] Anc Hem/Onc [place] [address] [address] Referral ID Status Reason Start Date Expiration Date V isits Requested Visits Authorized [id number] Authorized 12/17/2023 06/13/2024 999 [id number] Encounter Details Date Type Department Care Team (Latest Contact Info) Description 12/23/2023 9:30 AM EDT Hem/Onc Treatment Hematology/Oncolog y Treatment, [address] [phone] Encounter for antineoplastic chemotherapy*; Cancer, [...] as of this encounter (statuses as of 12/23/2023) Medications Medication Sig Dispensed Refills Start Date [...] needed for Pain, Severe. 60 Tablet 12/22/2023 4 Active Hospital, Clinic, or Other Facility Administered [...] as of this encounter (statuses as of 12/23/2023) Active Problems Problem Noted Date Diagnosed Date [...] as of this encounter (statuses as of 12/23/2023) Resolved Problems Problem Noted Date Diagnosed Date [...] Thyroiditis 07/18/2008 06/01/2019 Overview: thyroglobulin antibody >3000 [id number] 08/19/200608/10 Overview: Renamed Per Clinical Trials Billing Project. Pt is a participant in the [facility] (Consortium of Rheumatology Researchers of [place]) national data collection study. For further information please call Dr Temo Castaneda or Kim Ríos, RN, CCRC at [phone] [facility] RESEARCH OTHER*[id number] 08/19/2006 11/06/2009 Overview: Renamed Per Clinical Trials Billing Project. Pt is a participant in the [facility] (Consortium of Rheumatology Researchers of [place]) national data collection study. For further information please call Dr Temo Castaneda or Kim Ríos, RN, CCRC at [phone] Arthritis, rheumatoid 07/01/20062016 Abnormal blood chemistry 05/02/2006 Overview: positive rheumatoid factor. Metabolic syndrome 04/29/2006 0 Overview: insulin level 16 Mixed dyslipidemia 02/06/2006 9 Overview: Per Lipid Taxonomy. chol 192, hdl 26, trig 403 Allergic rhinitis due to pollen 01/30/2006 03/03/2017 Obesity, BMI not known 08/07 Overview: Per Obesity Taxonomy Denture irritation 0 documented as of this encounter (statuses as of 12/23/2023) Immunizations Name Administration Dates Next Due COVID-19 [...] PM EDT Hem/Onc Treatment Hematology/Oncolog y Treatment, [place] [address] [place] [address] [place], Chair 9 Hem Onc Scenery [address] [place] [address] 12/31/2023 12:00 PM EDT Hospital Encounter OR [facility], Operating Room, [facility] - 4th Floor 400 [place] [address] Sin Burroughs MD [address] [place] [address] 12/31/2023 12:00 PM EDT - 12/31/2023 12:57 PM EDT Surgery OR [facility], Operating Room, [facility] - 4th Floor 400 [place] [address] Sin Burroughs MD [address] [place] [address] INSERT TUNNELED CENTRAL VENOUS ACCESS WITH SUBQ PORT 01/13/2024 11:00 AM EDT Laboratory Laboratory [facility] Bal[place] [address] [place] [address] Diana Mortensen [facility] [address] [facility] [place] [address] 01/13/2024 12:00 PM EDT Hem/Onc Treatment Hematology/Oncolog y Treatment, [place] [address] [place] [address] [place], Chair 1 Hem Onc Scenery [address] [place] [address] 01/14/2024 2:00 PM EDT Office Visit Hematology/Oncolog y Dominic Mortensen [place] [address] [place] [address] Maddie Suarez CRNP [address] [place] [address] 01/14/2024 2:30 PM EDT Hem/Onc Treatment Hematology/Oncolog y Treatment, [place] 200 [facility], [place] [phone] Park, Chair 10 Hem Onc Scene 200 [facility] [place] [address] 01/15/2024 12:00 PM EDT Hem/Onc Treatment Hematology/Oncolog y Treatment, [place] [facility] [phone] [place], Chair 6 Hem Onc Scenery 200 [facility] [place] [address] 01/15/2024 2:30 PM EDT PulmDiagnostic Pulmonary Function Lab, [facility] [address] [facility] [place] [address] West, Pft 132 [facility] [place] [address] 01/15/2024 3:40 PM EDT Office Visit Pulmonary Medicine, [facility] 132 [facility] [place] [address] Eloy Pond MD [address] [place] [address] 02/06/2024 2:20 PM EDT Office Visit Family Medicine [address] [place] [phone] Amy Han PA-C [address] [place] [address] [place] [address] 10/15/2024 8:40 AM EDT Office Visit Rheumatology [address] [place] [phone] Samy Russo MD [address] [facility] [place] [address] Scheduled Procedures Name Priority Associated Diagnoses Date/Ti [...] ONCE PRN Other, Hypersensitivity Reaction, Starting on Fri12/23/23 at 0941, Until Fri12/24/23 at 0940, For 24 hours EPINEPHrine 1 MG/ML inj 0.3 mg 0.3 mg, Intramuscular, ONCE PRN Other, Hypersensitivity Reaction or Anaphylaxis, Starting on Fri12/23/23 at 0941, Until Fri12/24/23 at 0940, For 24 hours Hydrocortisone Sod Suc (PF) (Solu-Cortef) inj 100 mg 100 mg, IV Push, ONCE PRN Other, Hypersensitivity Reaction, Starting on Fri12/23/23 at 0941, Until Fri12/24/23 at 0940, For 24 hours NSS infusion Intravenous, at 50 mL/hr, PRN, Starting on Fri12/23/23 at 1045, Until Discontinued, Maintenance line Start Infusion 12/23/2023 9:49 AM EDT 50 mL/hr oxygen GAS Inhalation, OXYGEN, First dose on Fri12/23/23 at 1015, Until Discontinued, Device/Managed by: Low [...] Flush, Starting on Fri12/23/23 at 0941, Until Fri12/24/23 at 0940, For 24 hours, Do not flush if lock, PICC, or central line not in place; IV infusing or unable to flush. Given 12/23/2023 11:05 AM EDT 10 mL Inactive Administered Medications - [...] 9:50 AM EDT 190 mg 519.5 mL/hr ondansetron (Zofran) tab 8 mg 8 mg, Oral, ONCE, On Fri12/23/23 at 1045, For 1 dose, Give 30 minutes prior to chemotherapy. Given 12/23/2023 9:50 AM EDT 8 mg documented in this encounter Care Teams Machine Operator Helper Relationship Specialty Start Date End Date Edel Clay MD [address] [place] [address] [place]al[place] [phone] PCP - General Family Medicine 03/03/17 documented as of this encounter
--- OUTSIDE RECORDS SUMMARY | 2024-06-12 02:40 | External Medical Summary | Summary of Care ---
Author Name Unknown Organization [facility] Address [address] [place] [address] Phone [phone] Care Team Providers Care Solar Project Coordination Specialist Name Role Phone Edel Clay MD Primary Care Provide r Reason for Visit * Reason Onset Date Comments Precert Future 12/16/2023 Tecentriq, carbo platin, etoposide ac Encounter Details Date Type Department Care Team (Late st Contact Info) Description 12/16/2023 Telephone Hematology/Oncology Treatment, [place] [address] [place] [address] Monica Ward MD [address] [place] [phone] Precert Future (Tecentriq, carboplatin, et... Allergies [...] Thyroiditis 07/18/2008 06/01/2019 Overview: thyroglobulin antibody >3000 [id number] 08/19/200608/10 Overview: Renamed Per Clinical Trials Billing Project. Pt is a participant in the [facility] (Consortium of Rheumatology Researchers of [place]) national data collection study. For further information please call Dr Temo Castaneda or Kim Ríos, RN, CCRC at [phone] [facility] RESEARCH OTHER*[id number] 08/19/2006 11/06/2009 Overview: Renamed Per Clinical Trials Billing Project. Pt is a participant in the [facility] (Consortium of Rheumatology Researchers of [place]) national data collection study. For further information please call Dr Temo Castaneda or Kim Ríos, RN, CCRC at [phone] Arthritis, rheumatoid 07/01/20062016 Abnormal blood chemistry 05/02/2006 [...] Order received for tecentriq, carbo, etoposide, zometa. [place] plan built and routed for signature. Waiting [...] PM EDT Hem/Onc Treatment Hematology/Oncolog y Treatment, [place] [address] [place] [phone] [place], Chair 9 Hem Onc Scenery 200 [facility] [place] [address] 12/31/2023 12:00 PM EDT Hospital Encounter OR [facility], Operating Room, [facility] - 4th Floor 400 [place] [address] Sin Burroughs MD 400 [place] [address] 12/31/2023 12:00 PM EDT - 12/31/2023 12:57 PM EDT Surgery OR [facility], Operating Room, [facility] - 4th Floor 400 [place] [address] Sin Burroughs MD 400 [place] [address] INSERT TUNNELED CENTRAL VENOUS ACCESS WITH SUBQ PORT 01/13/2024 11:00 AM EDT Laboratory Laboratory Dominic Mortensen [place] [address] [place] [phone] [place], Lab [facility] [address] [place] [address] 01/13/2024 12:00 PM EDT Hem/Onc Treatment Hematology/Oncolog y [address], [address] [phone] [place], Chair 1 Hem Onc [facility] [address] [place] [address] 01/14/2024 2:00 PM EDT Office Visit Hematology/Oncolog y Dominic Mortensen [place] [address] [place] [phone] Maddie Suarez CRNP [address] [place] [address] 01/14/2024 2:30 PM EDT Hem/Onc Treatment Hematology/Oncolog y Treatment, [place] [facility] [phone] [place], Chair 10 Hem Onc Scenery [address] [place] [address] 01/15/2024 12:00 PM EDT Hem/Onc Treatment Hematology/Oncolog y Treatment, [place] [address] [place] [phone] [place], Chair 6 Hem Onc Scenery [address] [place] [address] 01/15/2024 2:30 PM EDT PulmDiagnostic Pulmonary Function Lab, [facility] 132 [facility] [place] [address] West, Pft 132 [facility] [place]ster [address] 01/15/2024 3:40 PM EDT Office Visit Pulmonary Medicine, [facility] 132 [facility] [place] [address] Eloy Pond MD [address] [facility] [address] 02/06/2024 2:20 PM EDT Office Visit Family Medicine [address] [place] [phone] Amy Han, PA-C [address] [place] [address] [place] [address] 10/15/2024 8:40 AM EDT Office Visit Rheumatology [address] [place] [phone] Samy Russo MD [facility] [place] [address] Scheduled Procedures Name Priority Associated Diagnoses Date/Ti [...] Negative Negative 12/20/2023 8:13 AM EDT LABORATORY [facility] Blood Venous blood specimen / Unknown Venipuncture / Unknown 12/19/2023 4:12 PM EDT 12/19/2023 4:12 PM EDT Monica Ward MD LAB BLOOD ORDERABLES Performing Organization Address [facility] Co de Phone Number LABORATORY [facility] [address] [place] [address] * HEPATITIS B SURFACE ANTIGEN (12/19/2023 4:12 PM EDT) Pathologist [facility] Hepatitis B Surface Antigen Negative Negative 12/20/2023 8:13 AM EDT LABORATORY [facility] Blood Venous blood specimen / Unknown Venipuncture / Unknown 12/19/2023 4:12 PM EDT 12/19/2023 4:12 PM EDT Monica Ward MD LAB BLOOD ORDERABLES Performing Organization Address [facility] Co de Phone Number LABORATORY [facility] [address] [place] [address] * HEPATITIS B SURFACE ANTIBODY (12/19/2023 4:12 PM EDT) Pathologist [facility] Hepatitis B Surface Antibody, Quantitative <3.5 mIU/mL 12/20/2023 8:13 AM EDT LABORATORY [facility] Hepatitis B Surface Antibody, Qualitative Negative 12/20/2023 8:13 AM EDT LABORATORY [facility] Hepatitis B Surface Antibody, Interpretation NOT immune to Hepatitis B Virus 12/20/2023 8:13 AM EDT LABORATORY [facility] Comment: POSITIVE: >=11.5 mIU/mL INDETERMINATE: 8.5-<11.5 mIU/mL NEGATIVE: <8.5 mIU/mL Blood Venous blood specimen / Unknown Venipuncture / Unknown 12/19/2023 4:12 PM EDT 12/19/2023 4:12 PM EDT Monica Ward MD LAB BLOOD ORDERABLES LABORATORY [facility] [address] [place] [address] documented in this encounter Visit Diagnoses Diagnosis Small cell lung cancer, right (HCC)- Primary Metastatic adenocarcinoma to liver (HCC) Secondary malignant neoplasm of liver Cancer, metastatic to bone (HCC) 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
--- OUTSIDE RECORDS SUMMARY | 2024-06-12 02:40 | External Medical Summary | Summary of Care ---
Author Name Unknown Organization [facility] Address [address] [place] [address] Phone [phone] Care Team Providers Care Gold Miner Blasting Name Role Phone Edel Clay MD Primary Care Provide r Reason for Visit * Reason Onset Date Comments Precert Future 12/16/2023 Tecentriq, carbo platin, etoposide ac Encounter Details Date Type Department Care Team (Late st Contact Info) Description 12/16/2023 Telephone Hematology/Oncology Treatment, [place] [address] [place] [address] Monica Ward MD [address] [place] [phone] Precert Future (Tecentriq, carboplatin, et... Allergies [...] Thyroiditis 07/18/2008 06/01/2019 Overview: thyroglobulin antibody >3000 [id number] 08/19/200608/10 Overview: Renamed Per Clinical Trials Billing Project. Pt is a participant in the [facility] (Consortium of Rheumatology Researchers of [place]) national data collection study. For further information please call Dr Temo Castaneda or Kim Ríos, RN, CCRC at [phone] [facility] RESEARCH OTHER*[id number] 08/19/2006 11/06/2009 Overview: Renamed Per Clinical Trials Billing Project. Pt is a participant in the [facility] (Consortium of Rheumatology Researchers of [place]) national data collection study. For further information please call Dr Temo Castaneda or Kim Ríos, RN, CCRC at [phone] Arthritis, rheumatoid 07/01/20062016 Abnormal blood chemistry 05/02/2006 [...] encounter Miscellaneous Notes * Telephone Encounter - Nahum Meredith OSA [...] Order received for tecentriq, carbo, etoposide, zometa. [place] plan built and routed for signature. Waiting [...] PM EDT Hem/Onc Treatment Hematology/Oncolog y Treatment, [place] [address] [place] [phone] [place], Chair 9 Hem Onc Scenery [address] [place] [address] 12/31/2023 12:00 PM EDT Hospital Encounter [facility], Operating Room, [facility] - 4th Floor 400 [place] Boss [phone] Sin Burroughs MD [address] [place] [place] [phone] 12/31/2023 12:00 PM EDT - 12/31/2023 12:57 PM EDT Surgery OR [facility], Operating Room, [facility] - 4th Floor 400 [place] [address] Sin Burroughs MD [address] [place] [address] INSERT TUNNELED CENTRAL VENOUS ACCESS WITH SUBQ PORT 01/13/2024 11:00 AM EDT Laboratory Laboratory [facility] [place] [address] [place] [phone] [place], Lab [facility] [address] [facility] [place] [address] 01/13/2024 12:00 PM EDT Hem/Onc Treatment Hematology/Oncolog y Treatment, [place] [address] [facility] [phone] [place], Chair 1 Hem Onc Scenery 200 [facility] [place] [address] 01/14/2024 2:00 PM EDT Office Visit Hematology/Oncolog y [facility] [place] [address] [place] [phone] Maddie Suarez, NKECHI [address] [place] [address] 01/14/2024 2:30 PM EDT Hem/Onc Treatment Hematology/Oncolog y Treatment, [place] [address] [facility] [address] [place], Chair 10 Hem Onc Scenery 200 [facility] [place] [address] 01/15/2024 12:00 PM EDT Hem/Onc Treatment Hematology/Oncolog y Treatment, [place] 200 [facility] [place]itia [phone] [place], Chair 6 Hem Onc Scenery [address] [place] [address] 01/15/2024 2:30 PM EDT PulmDiagnostic Pulmonary Function Lab, [facility] 132 [facility] [place] [address] West, Pft 132 [facility] [place] [address] 01/15/2024 3:40 PM EDT Office Visit Pulmonary Medicine, [facility] 132 [facility] [place] [address] Eloy Pond MD [address] [place] [address] 02/06/2024 2:20 PM EDT Office Visit Family Medicine [address] [place] [phone] Amy Han PA-C [address] [place] [address] [place] [address] 10/15/2024 8:40 AM EDT Office Visit Rheumatology [address] [place] [phone] Samy Russo MD [facility] [place] [address] Scheduled Procedures Name Priority Associated Diagnoses Date/Ti [...] Negative Negative 12/20/2023 8:13 AM EDT LABORATORY [facility] Blood Venous blood specimen / Unknown Venipuncture / Unknown 12/19/2023 4:12 PM EDT 12/19/2023 4:12 PM EDT Monica Ward MD LAB BLOOD ORDERABLES Performing Organization Address City/[facility]/ZIP Co de Phone Number LABORATORY [facility] [address] [place] [address] * HEPATITIS B SURFACE ANTIGEN (12/19/2023 4:12 PM EDT) Hepatitis B Surface Antigen Negative Negative 12/20/2023 8:13 AM EDT LABORATORY [facility] Blood Venous blood specimen / Unknown Venipuncture / Unknown 12/19/2023 4:12 PM EDT 12/19/2023 4:12 PM EDT Monica Ward MD LAB BLOOD ORDERABLES Performing Organization Address [facility]/[place]UST de Phone Number LABORATORY [facility] [address] [place] [address] * HEPATITIS B SURFACE ANTIBODY (12/19/2023 4:12 PM EDT) Pathologist [facility] Hepatitis B Surface Antibody, Quantitative <3.5 mIU/mL 12/20/2023 8:13 AM EDT LABORATORY [facility] Hepatitis B Surface Antibody, Qualitative Negative 12/20/2023 8:13 AM EDT LABORATORY [facility] Hepatitis B Surface Antibody, Interpretation NOT immune to Hepatitis B Virus 12/20/2023 8:13 AM EDT LABORATORY [facility] Comment: POSITIVE: >=11.5 mIU/mL INDETERMINATE: 8.5-<11.5 mIU/mL NEGATIVE: <8.5 mIU/mL Blood Venous blood specimen / Unknown Venipuncture / Unknown 12/19/2023 4:12 PM EDT 12/19/2023 4:12 PM EDT Monica Ward MD LAB BLOOD ORDERABLES Performing Organization Address City/[facility] Co de Phone Number LABORATORY [facility] [address] [place] [address] documented in this encounter Visit Diagnoses Diagnosis Small cell lung cancer, right (HCC)- Primary Metastatic adenocarcinoma to liver (HCC) Secondary malignant neoplasm of liver Cancer, metastatic to bone (HCC) 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
--- OUTSIDE RECORDS SUMMARY | 2024-06-12 02:40 | External Medical Summary | Summary of Care ---
Author Name Unknown Organization [facility] Address [address] [place] [address] Phone [phone] Care Team Providers Care Municipal Court Magistrate Name Role Phone Edel Clay MD Primary Care Provide r Reason for Visit * Reason Onset Date Comments Precert Future 12/16/2023 Tecentriq, carbo platin, etoposide ac Encounter Details Date Type Department Care Team (Late st Contact Info) Description 12/16/2023 Telephone Hematology/Oncology Treatment, [place] [address] [place] [address] Monica Ward MD [address] [place] [phone] Precert Future (Tecentriq, carboplatin, et... Allergies [...] Thyroiditis 07/18/2008 06/01/2019 Overview: thyroglobulin antibody >3000 [id number] 08/19/200608/10 Overview: Renamed Per Clinical Trials Billing Project. Pt is a participant in the [facility] (Consortium of Rheumatology Researchers of [place]) national data collection study. For further information please call Dr Temo Castaneda or Kim Ríos, RN, CCRC at [phone] [facility] RESEARCH OTHER*[id number] 08/19/2006 11/06/2009 Overview: Renamed Per Clinical Trials Billing Project. Pt is a participant in the [facility] (Consortium of Rheumatology Researchers of [place]) national data collection study. For further information please call Dr Temo Castaneda or Kim Ríos, RN, CCRC at [phone] Arthritis, rheumatoid 07/01/20062016 Abnormal blood chemistry 05/02/2006 [...] Order received for tecentriq, carbo, etoposide, zometa. [place] plan built and routed for signature. Waiting [...] PM EDT Hem/Onc Treatment Hematology/Oncolog y Treatment, [place] [address] [place] [phone] [place], Chair 9 Hem Onc Scenery 200 [facility] [place] [address] 12/31/2023 12:00 PM EDT Hospital Encounter OR GL, Operating Room, [facility] - 4th Floor 400 [place] [address] Sin Burroughs MD 400 [place] [address] 12/31/2023 12:00 PM EDT - 12/31/2023 12:57 PM EDT Surgery OR [facility], Operating Room, [facility] - 4th Floor 400 [place] [address] Sin Burroughs MD 400 [place] [address] INSERT TUNNELED CENTRAL VENOUS ACCESS WITH SUBQ PORT 01/13/2024 11:00 AM EDT Laboratory Laboratory Dominic Mortensen [place] [address] [place] [phone] [place], Lab [facility] [address] [place] [address] 01/13/2024 12:00 PM EDT Hem/Onc Treatment Hematology/Oncolog y Treatment, [address] [phone] [place], Chair 1 Hem Onc [facility] [address] [place] [address] 01/14/2024 2:00 PM EDT Office Visit Hematology/Oncolog y Dominic Mortensen [place] [address] [place] [phone] Maddie Suarez CRNP [address] [place] [address] 01/14/2024 2:30 PM EDT Hem/Onc Treatment Hematology/Oncolog y Treatment, [place] [facility] [phone] [place], Chair 10 Hem Onc Scenery [address] [place] [address] 01/15/2024 12:00 PM EDT Hem/Onc Treatment Hematology/Oncolog y Treatment, [place] [address] [place] [phone] [place], Chair 6 Hem Onc Scenery [address] [place] [address] 01/15/2024 2:30 PM EDT PulmDiagnostic Pulmonary Function Lab, [facility] [address] [facility] [place] [address] West, Pft 132 [facility] [place] [address] 01/15/2024 3:40 PM EDT Office Visit Pulmonary Medicine, [facility] [address] [facility] [place] [address] Eloy Pond MD [address] [facility] [place] [address] 02/06/2024 2:20 PM EDT Office Visit Family Medicine [address] [place] [phone] Amy Han, PA-C [address] [place] [address] [place] [address] 10/15/2024 8:40 AM EDT Office Visit Rheumatology [address] [place] [phone] Samy Russo MD [facility] [place] [address] Scheduled Procedures Name Priority Associated Diagnoses Date/Ti [...] Negative Negative 12/20/2023 8:13 AM EDT LABORATORY [facility] Blood Venous blood specimen / Unknown Venipuncture / Unknown 12/19/2023 4:12 PM EDT 12/19/2023 4:12 PM EDT Monica Ward MD LAB BLOOD ORDERABLES Performing Organization Address [facility] Co de Phone Number LABORATORY [facility] [address] [place] [address] * HEPATITIS B SURFACE ANTIGEN (12/19/2023 4:12 PM EDT) Pathologist [facility] [place] Hepatitis B Surface Antigen Negative Negative 12/20/2023 8:13 AM EDT LABORATORY [facility] Blood Venous blood specimen / Unknown Venipuncture / Unknown 12/19/2023 4:12 PM EDT 12/19/2023 4:12 PM EDT Monica Ward MD LAB BLOOD ORDERABLES Performing Organization Address [facility] Co de Phone Number LABORATORY [facility] [address] [place] [address] * HEPATITIS B SURFACE ANTIBODY (12/19/2023 4:12 PM EDT) Pathologist [facility] [place] Hepatitis B Surface Antibody, Quantitative <3.5 mIU/mL 12/20/2023 8:13 AM EDT LABORATORY [facility] Hepatitis B Surface Antibody, Qualitative Negative 12/20/2023 8:13 AM EDT LABORATORY [facility] Hepatitis B Surface Antibody, Interpretation NOT immune to Hepatitis B Virus 12/20/2023 8:13 AM EDT LABORATORY [facility] Comment: POSITIVE: >=11.5 mIU/mL INDETERMINATE: 8.5-<11.5 mIU/mL NEGATIVE: <8.5 mIU/mL Blood Venous blood specimen / Unknown Venipuncture / Unknown 12/19/2023 4:12 PM EDT 12/19/2023 4:12 PM EDT Monica Ward MD LAB BLOOD ORDERABLES LABORATORY [facility] [address] [place] [address] documented in this encounter Visit Diagnoses Diagnosis Small cell lung cancer, right (HCC)- Primary Metastatic adenocarcinoma to liver (HCC) Secondary malignant neoplasm of liver Cancer, metastatic to bone (HCC) Secondary malignant neoplasm of bone and bone marrow Small cell lung cancer, right (HCC) Adenocarcinoma of colon metastatic to liver (HCC) Malignant neoplasm of colon, unspecified site documented in this encounter Care Teams Municipal Court Magistrate Relationship Specialty Start Date End Date Edel Clay MD [address] [place] [address] [place] [address] PCP - General Family Medicine 03/03/17 documented as of this encounter
--- OUTSIDE RECORDS SUMMARY | 2024-06-12 02:41 | External Medical Summary | Summary of Care ---
Author Name Unknown Organization [facility] Address [address] [place] [address] Phone [phone] Care Team Providers Care Line Supply Name Role Phone Edel Clay MD Primary Care Provide r Reason for Visit * Reason Comments Outpatient Testing Encounter Details Date Type Department Care Team (Late st Contact Info) Description 12/19/2023 4:00 PM EDT Laboratory Laboratory [facility] [address] [place] [phone] [place], Lab Scenery [address] [place] [address] Small cell lung cancer, right (HCC); Metastatic adenocarcinoma to liver (HCC); Cancer, metastatic to bone (HCC) Allergies Active Allergy Reactions Criticality Noted Date Comments Clindamycin Hives 08/26/2014 Codeine 10/25/2011 "Stupor", drowsy Other Allergy (See Comments) 024 Perfumes, hairspray, candles, etc. Sinus infections, headaches, very sensitive. Penicillins 01/30/2006 Hives ans swelling Sulfa Antibiotics 06/29/2010 Sick to her stomach documented as of this encounter (statuses as of 12/19/2023) Medications Medication Sig Dispensed Refills Start Date [...] before December 20, 2023. 24 Tablet 12/20/2023 Active Prochlorperazine Maleate 10 MG Oral Tablet [...] and 4 of chemo. 16 Tablet 12/19/2023 Active Hospital, Clinic, or Other Facility [...] as of this encounter (statuses as of 12/19/2023) Active Problems Problem Noted Date Diagnosed Date [...] as of this encounter (statuses as of 12/19/2023) Resolved Problems Problem Noted Date Diagnosed Date [...] Thyroiditis 07/18/2008 06/01/2019 Overview: thyroglobulin antibody >3000 [id number] 08/19/200608/10 Overview: Renamed Per Clinical Trials Billing Project. Pt is a participant in the [facility] (Consortium of Rheumatology Researchers of [place]) national data collection study. For further information please call Dr Temo Castaneda or Kim Ríos, RN, CCRC at [phone] [facility] RESEARCH OTHER*[id number] 08/19/2006 11/06/2009 Overview: Renamed Per Clinical Trials Billing Project. Pt is a participant in the [employer] (Consortium of Rheumatology Researchers of [place]) national data collection study. For further information please call Dr Temo Castaneda or Kim Ríos, RN, CCRC at [phone] Arthritis, rheumatoid 07/01/20062016 Abnormal blood chemistry 05/02/2006 Overview: positive rheumatoid factor. Metabolic syndrome 04/29/2006 0 Overview: insulin level 16 Mixed dyslipidemia 02/06/200604/25/ 9 Overview: Per Lipid Taxonomy. chol 192, hdl 26, trig 403 Allergic rhinitis due to pollen 01/30/2006 03/03/2017 Obesity, BMI not known 08/07 Overview: Per Obesity Taxonomy Denture irritation 0 documented as of this encounter (statuses as of 12/19/2023) Immunizations Name Administration Dates Next Due COVID-19 [...] PM EDT Hem/Onc Treatment Hematology/Oncolog y Treatment, [place] [facility] [phone] [place], Chair 3 Hem Onc Scenery [address] [place] [address] 12/23/2023 12:15 PM EDT Hem/Onc Treatment Hematology/Oncolog y Treatment, [place] [facility] [phone] [place], Chair 1 Hem Onc Scenery 200 [address] [place] [address] 12/24/2023 12:30 PM EDT Hem/Onc Treatment Hematology/Oncolog y Treatment, [place] [address] [place], [place] [phone] [place], Chair 9 Hem Onc Scenery [address] [place] [address] 12/31/2023 12:00 PM EDT Hospital Encounter OR GL, Operating Room, [facility] - 4th Floor 400 [place] [address] Sin Burroughs MD 400 [place] [address] 12/31/2023 12:00 PM EDT - 12/31/2023 12:57 PM EDT Surgery OR [facility], Operating Room, [facility] - 4th Floor 400 [place] [address] Sin Burroughs MD 400 [place] [address] INSERT TUNNELED CENTRAL VENOUS ACCESS WITH SUBQ PORT 01/15/2024 2:30 PM EDT PulmDiagnostic Pulmonary Function Lab, [facility] [address] [facility] [place] [address] West, Pft 132 [facility] [place] [address] 01/15/2024 3:40 PM EDT Office Visit Pulmonary Medicine, [facility] [address] [place] [address] Eloy Pond MD [address] [place] [address] 02/06/2024 2:20 PM EDT Office Visit [address] [phone] Amy Han, PAMaryC [address] [place] [address] [place] [address] 10/15/2024 8:40 AM EDT Office Visit Rheumatology [address] [place] [phone] Samy Russo MD [facility] [place] [address] Pending Results Name Type Priority Associated Diagnoses Date /Time CBC WITH WBC DIFFERENTIAL Lab Routine Small cell lung cancer, right (HCC) Metastatic adenocarcinoma to liver (HCC) 12/19/2023 4:12 PM EDT COMPREHENSIVE METABOLIC PANEL Lab STAT Small cell lung cancer, right (HCC) Metastatic adenocarcinoma to liver (HCC) 12/19/2023 4:12 PM EDT PT INR Lab Routine Small cell lung cancer, right (HCC) Metastatic adenocarcinoma to liver (HCC) 12/19/2023 4:12 PM EDT LD Lab Routine Small cell lung cancer, right (HCC) Metastatic adenocarcinoma to liver (HCC) 12/19/2023 4:12 PM EDT CEA Lab Routine Small cell lung cancer, right (HCC) Metastatic adenocarcinoma to liver (HCC) 12/19/2023 4:12 PM EDT HEPATITIS B SURFACE ANTIBODY Lab STAT Small cell lung cancer, right (HCC) Metastatic adenocarcinoma to liver (HCC) Cancer, metastatic to bone (HCC) 12/19/2023 4:12 PM EDT HEPATITIS B SURFACE ANTIGEN Lab STAT Small cell lung cancer, right (HCC) Metastatic adenocarcinoma to liver (HCC) Cancer, metastatic to bone (HCC) 12/19/2023 4:12 PM EDT HEPATITIS B CORE ANTIBODIES IGG AND IGM Lab STAT Small cell lung cancer, right (HCC) Metastatic adenocarcinoma to liver (HCC) Cancer, metastatic to bone (HCC) 12/19/2023 4:12 PM EDT FOLIC ACID Lab STAT Small cell lung cancer, right (HCC) Metastatic adenocarcinoma to liver (HCC) Cancer, metastatic to bone (HCC) 12/19/2023 4:12 PM EDT PHOSPHORUS Lab STAT Small cell lung cancer, right (HCC) Metastatic adenocarcinoma to liver (HCC) Cancer, metastatic to bone (HCC) 12/19/2023 4:12 PM EDT CBC Lab Routine Small cell lung cancer, right (HCC) Metastatic adenocarcinoma to liver (HCC) 12/19/2023 4:12 PM EDT DIFFERENTIAL, AUTOMATED Lab Routine Small cell lung cancer, right (HCC) Metastatic adenocarcinoma to liver (HCC) 12/19/2023 4:12 PM EDT Scheduled Procedures Name Priority Associated Diagnoses Date/Ti [...] Diagnoses Diagnosis Small cell lung cancer, right (HCC) Metastatic adenocarcinoma to liver (HCC) Secondary malignant neoplasm of liver Cancer, metastatic to bone (HCC) Secondary malignant neoplasm of bone and bone marrow Small cell lung cancer, right (HCC) Adenocarcinoma of colon metastatic to liver (HCC) Malignant neoplasm of colon, unspecified site documented in this encounter Care Teams Line Supply Relationship Specialty Start Date End Date Edel Clay MD [address] [place] [address] [place] [address] PCP - General Family Medicine 03/03/17 documented as of this encounter
--- OUTSIDE RECORDS SUMMARY | 2024-06-12 02:41 | External Medical Summary | Summary of Care ---
Author Name Unknown Organization [facility] Address [address] [place] [address] Phone [phone] Care Team Providers Care Doormaker Name Role Phone Edel Clay MD Primary Care Provide r Encounter Details Date Type Department Care Team (Late st Contact Info) Description 12/19/2023 3:00 PM EDT Nurse Only Hematology/Oncology Scenery [place] [address] [place] [phone] [place], Nurse Hem Onc Scenery [address] [place] [address] Allergies Active Allergy Reactions Criticality Noted Date [...] Thyroiditis 07/18/2008 06/01/2019 Overview: thyroglobulin antibody >3000 [id number] [facility]ENTER[facility]ARMA[facility] 08/19/200608/10 Overview: Renamed Per Clinical Trials Billing Project. Pt is a participant in the [facility] (Consortium of Rheumatology Researchers of [place]) national data collection study. For further information please call Dr Temo Castaneda or Kim Ríos, RN, CCRC at [phone] [facility] RESEARCH OTHER*[id number] 08/19/2006 11/06/2009 Overview: Renamed Per Clinical Trials Billing Project. Pt is a participant [facility] the [facility] (Consortium of Rheumatology Researchers of [place]) national data collection study. For further information please call Dr Temo Castaneda or Kim Ríos, RN, CCRC at [phone] Arthritis, rheumatoid 07/01/20062016 Abnormal blood chemistry 05/02/2006 [...] as of this encounter Nursing Notes * Marcela Orellana RN - 12/19/2023 4:25 PM EDT Nurse education for tecentriq, carbo, etoposide complete. documented in this encounter Plan of Treatment Upcoming Encounters Date Type Department Care Team (Latest Contact Info) Description 12/22/2023 12:00 PM EDT Hem/Onc Treatment Hematology/Oncolog y Treatment, [address] [phone] [place], Chair 3 Hem Onc [address] [address] 12/23/2023 12:15 PM EDT Hem/Onc Treatment Hematology/Oncolog y Treatment, [place] 200 [facility] [phone] [place], Chair 1 Hem Onc Scenery [address] [place] [address] 12/24/2023 12:30 PM EDT Hem/Onc Treatment Hematology/Oncolog y Treatment, [place] 200 [facility], [place] [phone] [place], Chair 9 Hem Onc Scenery [address] [place] [address] 12/31/2023 12:00 PM EDT Hospital Encounter OR [facility], Operating Room, [facility] - 4th Floor 400 [place] [address] Sin Burroughs MD [address] [place] [address] 12/31/2023 12:00 PM EDT - 12/31/2023 12:57 PM EDT Surgery OR [facility], Operating Room, [facility] - 4th Floor 400 [place] [address] Sin Burroughs MD [address] [place] [address] INSERT TUNNELED CENTRAL VENOUS ACCESS WITH SUBQ PORT 01/15/2024 2:30 PM EDT PulmDiagnostic Pulmonary Function Lab, [facility] 132 [facility] [place] [address] West, Pft [address] [facility] [place] [address] 01/15/2024 3:40 PM EDT Office Visit Pulmonary Medicine, [facility] 132 [facility] [place] [address] Eloy Pond MD [address] [place] [address] 02/06/2024 2:20 PM EDT Office Visit Family Medicine [address] [place] [phone] Amy Han PA-C [address] [place] [address] [place] [address] 10/15/2024 8:40 AM EDT Office Visit Rheumatology [address] [place] [phone] Samy Russo MD [address] [facility] [facility] [place] [address] Scheduled Procedures Name Priority Associated Diagnoses Date/Ti [...] as of this encounter Visit Diagnoses Diagnosis Drug-related hair loss- Primary Other alopecia Cancer, metastatic to bone (HCC) Secondary malignant neoplasm of bone and bone marrow Metastatic adenocarcinoma to liver (HCC) Secondary malignant neoplasm of liver Small cell lung cancer, right (HCC) Small cell lung cancer, right (HCC) Adenocarcinoma of colon metastatic to liver (HCC) Malignant neoplasm of colon, unspecified site documented in this encounter Care Teams Doormaker Relationship Specialty Start Date End Date Edel Clay MD [address] [place] [address] [place] [address] PCP - General Family Medicine 03/03/17 documented as of this encounter
--- OUTSIDE RECORDS SUMMARY | 2024-06-12 02:41 | External Medical Summary | Summary of Care ---
Author Name Unknown Organization [facility] Address [address] [place] [address] Phone [phone] Care Team Providers Care Scales Inspector Name Role Phone Edel Clay MD Primary Care Provide r Reason for Visit * Reason Onset Date Comments Precert Future 12/16/2023 Tecentriq, carbo platin, etoposide ac Encounter Details Date Type Department Care Team (Late st Contact Info) Description 12/16/2023 Telephone Hematology/Oncology Treatment, [place] [address] [place] [address] Monica Ward MD [address] [place] [phone] Precert Future (Tecentriq, carboplatin, et... Allergies [...] Thyroiditis 07/18/2008 06/01/2019 Overview: thyroglobulin antibody >3000 [id number] 08/19/200608/10 Overview: Renamed Per Clinical Trials Billing Project. Pt is a participant in the [employer] (Consortium of Rheumatology Researchers of [place]) national data collection study. For further information please call Dr Temo Castaneda or Kim Ríos, RN, CCRC at [phone] [facility] RESEARCH OTHER*[id number] 08/19/2006 11/06/2009 Overview: Renamed Per Clinical Trials Billing Project. Pt is a participant in the [facility] (Consortium of Rheumatology Researchers of [place]) national data collection study. For further information please call Dr Temo Castaneda or Kim íRos, RN, CCRC at [phone] Arthritis, rheumatoid 07/01/20062016 Abnormal blood chemistry 05/02/2006 [...] hour appt "C1D2 etoposide/ fulphila day 4" 12/23/24 - 2 hour appt "C1D3 etoposide/ fulphila [...] Order received for tecentriq, carbo, etoposide, zometa. [place] plan built and routed for signature. Waiting [...] AM EDT Hem/Onc Treatment Hematology/Oncolog y Treatment, [address] [address] 12/24/2023 12:30 PM EDT Hem/Onc Treatment Hematology/Oncolog y Treatment, [address] [phone] [place], Chair 9 Hem Onc [address] [address] 12/31/2023 12:00 PM EDT Hospital Encounter OR [facility], Operating Room, [facility] - 4th Floor 400 [place] [phone] Sin Burroughs MD 400 [place] [address] 12/31/2023 12:00 PM EDT - 12/31/2023 12:57 PM EDT Surgery OR [facility], Operating Room, [facility] - 4th Floor [address] [place] [address] Sin Burroughs MD 400 [place] [address] INSERT TUNNELED CENTRAL VENOUS ACCESS WITH SUBQ PORT 01/15/2024 2:30 PM EDT PulmDiagnostic Pulmonary Function Lab, [facility] 132 [facility] [address] West, Pft 132 [facility] [place] [address] 01/15/2024 3:40 PM EDT Office Visit Pulmonary Medicine, [facility] 132 [facility] [place] [address] Eloy Pond MD [address] [facility] [address] 02/06/2024 2:20 PM EDT Office Visit Family Medicine [address] [place] [phone] Amy Han PA-C [address] [place] [address] [place] [address] 10/15/2024 8:40 AM EDT Office Visit Rheumatology [address] [place] [phone] Samy Russo MD [facility]0 [facility] [place] [address] Scheduled Procedures Name Priority Associated Diagnoses Date/Ti [...] Negative Negative 12/20/2023 8:13 AM EDT LAB[facility]ORY [facility] Blood Venous blood specimen / Unknown Venipuncture / Unknown 12/19/2023 4:12 PM EDT 12/19/2023 4:12 PM EDT Monica Ward MD LAB BLOOD ORDERABLES Performing Organization Address City/[facility] Co de Phone Number LAB[facility]ORY [facility] [address] [place] [address] * HEPATITIS B SURFACE ANTIGEN (12/19/2023 4:12 PM EDT) Pathologist [facility] Hepatitis B Surface Antigen Negative Negative 12/20/2023 8:13 AM EDT LAB[facility]ORY [facility] Blood Venous blood specimen / Unknown Venipuncture / Unknown 12/19/2023 4:12 PM EDT 12/19/2023 4:12 PM EDT Monica Ward MD LAB BLOOD ORDERABLES Performing Organization Address [facility] Co de Phone Number LABORATORY [place] [address] [place] [address] * HEPATITIS B SURFACE ANTIBODY (12/19/2023 4:12 PM EDT) Pathologist [facility] Hepatitis B Surface Antibody, Quantitative <3.5 mIU/mL 12/20/2023 8:13 AM EDT [facility]ORY [facility] Hepatitis B Surface Antibody, Qualitative Negative 12/20/2023 8:13 AM EDT [facility]ORY [facility] Hepatitis B Surface Antibody, Interpretation NOT immune to Hepatitis B Virus 12/20/2023 8:13 AM EDT [facility]ORY [facility] Comment: POSITIVE: >=11.5 mIU/mL INDETERMINATE: 8.5-<11.5 mIU/mL NEGATIVE: <8.5 mIU/mL Blood Venous blood specimen / Unknown Venipuncture / Unknown 12/19/2023 4:12 PM EDT 12/19/2023 4:12 PM EDT Monica Ward MD LAB BLOOD ORDERABLES [facility] [address] [place] [address] documented in this encounter Visit Diagnoses Diagnosis Small cell lung cancer, right (HCC)- Primary Metastatic adenocarcinoma to liver (HCC) Secondary malignant neoplasm of liver Cancer, metastatic to bone (HCC) Secondary malignant neoplasm of bone and bone marrow Small cell lung cancer, right (HCC) Adenocarcinoma of colon metastatic to liver (HCC) Malignant neoplasm of colon, unspecified site documented in this encounter Care Teams Scales Inspector Relationship Specialty Start Date End Date Edel Clay MD [address] [place] [address] [place] [address] PCP - General Family Medicine 03/03/17 documented as of this encounter
--- OUTSIDE RECORDS SUMMARY | 2024-06-12 02:41 | External Medical Summary | Summary of Care ---
Author Name Unknown Organization [facility] Address [address] [place] [address] Phone [phone] Care Team Providers Care Agriculture Laborer Name Role Phone Edel Clay MD Primary [...] PENDING TECENTRIQ & HALEIGHPHILA Monica Ward MD [address] [place] [address] [place] [address] Anc Hem/Onc Scene[address] [address] Referral ID Status Reason Start Date Expiration Date V isits Requested Visits Authorized [id number] Authorized 12/17/2023 06/13/2024 999 [id number] Encounter Details Date Type Department Care Team (Latest Contact Info) Description 12/22/2023 12:00 PM EDT Hem/Onc Treatment Hematology/Oncolog y Treatment, [address] [address] [place], Chair 3 Hem Onc [address] [place] [address] Encounter for antineoplastic chemotherapy*; [...] Thyroiditis 07/18/2008 06/01/2019 Overview: thyroglobulin antibody >3000 [id number] 08/19/200608/10 Overview: Renamed Per Clinical Trials Billing Project. Pt is a participant in the [facility] (Consortium of Rheumatology Researchers of [place]) national data collection study. For further information please call Dr Temo Castaneda or Kim Ríos, RN, CCRC at [phone] [facility] RESEARCH OTHER*[id number] 08/19/2006 11/06/2009 Overview: Renamed Per Clinical Trials Billing Project. Pt is a participant in the [facility] (Consortium of Rheumatology Researchers of [place]) national data collection study. For further information please call Dr Temo Castaneda or Kim Ríos, RN, CCRC at [phone] Arthritis, rheumatoid 07/01/20062016 Abnormal blood chemistry 05/02/2006 [...] AM EDT Hem/Onc Treatment Hematology/Oncolog y Treatment, [address] [address] 12/24/2023 12:30 PM EDT Hem/Onc Treatment Hematology/Oncolog y Treatment, [address] [address] [place], Chair 9 Hem Onc Scenery [address] [place] [address] 12/31/2023 12:00 PM EDT Hospital Encounter OR [facility], Operating Room, [facility] - 4th Floor 400 [place] [address] Sin Burroughs MD [address] [place] [address] 12/31/2023 12:00 PM EDT - 12/31/2023 12:57 PM EDT Surgery OR [facility], Operating Room, [facility] - 4th Floor 400 [place] [address] Sin Burroughs MD [address] [place] [address] INSERT TUNNELED CENTRAL VENOUS ACCESS WITH SUBQ PORT 01/13/2024 11:00 AM EDT Laboratory Laboratory [facility] Mortensen [place] [address] [place] [phone] [place] Lab [facility] 200 Dominic Canales [facility] [place] [address] 01/13/2024 12:00 PM EDT Hem/Onc Treatment Hematology/Oncolog y Treatment [place] [address] [place] [phone] [place], Chair 1 Hem Onc Scenery [address] [place] [address] 01/14/2024 2:00 PM EDT Office Visit Hematology/Oncolog y Dominic Mortensen [place] [address] [place] [phone] Maddie Suarez CRNP [address] [place] [address] 01/14/2024 2:30 PM EDT Hem/Onc Treatment Hematology/Oncolog y Treatment, [place] 200 [facility], [place] [phone] [place], Chair 10 Hem On[address] [place] [address] 01/15/2024 12:00 PM EDT Hem/Onc Treatment Hematology/Oncolog y Treatment, [place] 200 [facility], [place] [address] [place], Chair 6 Hem Onc [facility] 200 [place] [address] 01/15/2024 2:30 PM EDT PulmDiagnostic Pulmonary Function Lab, [facility] 132 [facility] [place] [address] West, Pft 132 [facility] [place] [address] 01/15/2024 3:40 PM EDT Office Visit Pulmonary Medicine, [facility] 132 [facility] [place] [address] Eloy Pond MD [address] [facility] [address] 02/06/2024 2:20 PM EDT Office Visit Family Medicine [address] [place] [phone] Amy Han PA-C [address] [place] [address] [place] [address] 10/15/2024 8:40 AM EDT Office Visit Rheumatology [address] [place] [phone] Samy Russo MD [facility] [place] [address] Scheduled Procedures Name Priority Associated Diagnoses Date/Ti [...] mL/hr documented in this encounter Care Teams Agriculture Laborer Relationship Specialty Start Date End Date Edel Clay MD [address] [place] [address] [place] [address] PCP - General Family Medicine 03/03/17 documented as of this encounter
--- OUTSIDE RECORDS SUMMARY | 2024-06-12 02:41 | External Medical Summary | Summary of Care ---
Author Name Unknown Organization [facility] Address [address] [place] [address] Phone [phone] Care Team Providers Care Rn Review Name Role Phone Edel Clay MD Primary Care Provide r Reason for Visit * Reason Onset Date Comments Medication Refill 12/19/2023 Encounter Details Date Type Department Care Team (Late st Contact Info) Description 12/19/2023 Refill Hematology/Oncology Treatment, [place] [address] [place] [address] Monica Ward MD [address] [place] [address] Small cell lung cancer, right (HCC)*; Metastatic adenocarcinoma to liver (HCC); Cancer, metastatic [...] before December 20, 2023. 24 Tablet 12/20/2023 08/13/202 4 Active Prochlorperazine Maleate 10 MG Oral [...] Thyroiditis 07/18/2008 06/01/2019 Overview: thyroglobulin antibody >3000 [facility] 08/19/200608/10 Overview: Renamed Per Clinical Trials Billing Project. Pt is a participant in the [facility] (Consortium of Rheumatology Researchers of [place]) national data collection study. For further information please call Dr Temo Castaneda or Kim Ríos RN, CCRC at [phone] [facility] RESEARCH OTHER*[id number] 08/19/2006 11/06/2009 Overview: Renamed Per Clinical Trials Billing Project. Pt is a participant in the [facility] (Consortium of Rheumatology Researchers of [place]) national data collection study. For further information please call Dr Temo Castaneda or Kim Ríos, RN, CCRC at [phone] Arthritis, rheumatoid 07/01/20062016 Abnormal blood chemistry 05/02/2006 [...] encounter Miscellaneous Notes * Telephone Encounter - Sukhjinder Faria MD - 12/19/2023 4:27 PM EDT E-prescribed Sukhjinder Faria MD Hem/Onc * Telephone Encounter - Marcela Orellana RN - 12/19/2023 3:49 PM EDT Pended EMLA documented in this encounter Plan of Treatment Upcoming Encounters Date Type Department Care Team (Latest Contact Info) Description 12/22/2023 12:00 PM EDT Hem/Onc Treatment Hematology/Oncolog y Treatment, [address], [place] [phone] [place], Chair 3 Hem Onc Scenery [address] [place], [place] [address] 12/23/2023 12:15 PM EDT Hem/Onc Treatment Hematology/Oncolog y Treatment, [address], [place] [phone] [place], Chair 1 Hem Onc Scenery [address] [place], [place] [address] 12/24/2023 12:30 PM EDT Hem/Onc Treatment Hematology/Oncolog y Treatment, [address] [place] [address] [place], Chair 9 Hem Onc Scenery [address] [place], [place] [address] 12/31/2023 12:00 PM EDT Hospital Encounter OR [facility], Operating Room, [facility] - 4th Floor 400 [place] [address] Sin Burroughs MD 400 [place] [address] 12/31/2023 12:00 PM EDT - 12/31/2023 12:57 PM EDT Surgery OR [facility], Operating Room, [facility] - 4th Floor 400 [place] [address] Sin Burroughs MD 400 [place] [address] INSERT TUNNELED CENTRAL VENOUS ACCESS WITH SUBQ PORT 01/15/2024 2:30 PM EDT PulmDiagnostic Pulmonary Function Lab, [facility] 132 [facility] [place], [place] [address] West, Pft 132 [facility] [place] [address] 01/15/2024 3:40 PM EDT Office Visit Pulmonary Medicine, [facility] 132 [facility] [place] [address] Eloy Pond MD [address] [facility] [place] [address] 02/06/2024 2:20 PM EDT Office Visit Family Medicine [address] [place] [phone] Amy Han PA-C [address] [place] [address] [place] [address] 10/15/2024 8:40 AM EDT Office Visit Rheumatology [address] [place] [phone] Samy Russo MD [facility]0 [facility] [address] Scheduled Procedures Name Priority Associated Diagnoses Date/Ti [...] 06/01/2019 Colorectal Cancer Screening 06/01/2022 COVID-19 Vaccine (24 season) 2023 01/18/2022, 06/09/2021, 12/27/2020, Additional history [...] site documented in this encounter Care Teams Rn Review Relationship Specialty Start Date End Date Edel Clay MD [address] [place] [address] [place] [phone] PCP - General Family Medicine 03/03/17 documented as of this encounter
--- OUTSIDE RECORDS SUMMARY | 2024-06-12 02:42 | External Medical Summary ---
Author Name Unknown Address Unknown Organization K01:[facility] - [address] [place] [address] Laboratory Report Ordering Provider Test Date Status AKILAH ROMERO 12/19/2023 16:12:20 Final Observation Date Value Abnormality Reference (Units ) Status CEA 12/19/2023 16:12:20 186.3 Above high normal <= 5.2 (ng/mL) Final Performing Location [facility] - [address] [place] [address]
--- OUTSIDE RECORDS SUMMARY | 2024-06-12 02:42 | External Medical Summary ---
Author Name Unknown Address Unknown Organization K01[facility] [place] [address] [place] [address] Laboratory Report Ordering Provider Test Date Status AKILAH ROMERO 12/19/2023 16:12:20 Final Observation Date Value Abnormality Reference (Units ) Status Folic Acid 12/19/2023 16:12:20 >20.0 >4.5 (ng/ mL) Final Performing Location [facility] - [address] [place] [address]
--- OUTSIDE RECORDS SUMMARY | 2024-06-12 02:42 | External Medical Summary | Summary of Care ---
Author Name Unknown Organization [facility] Address [address] [place] [address] Phone [phone] Care Team Providers Care Linen Grader Name Role Phone Edel lCay MD Primary Care Provide r Encounter Details Date Type Department Care Team (Late st Contact Info) Description 12/18/2023 Orders Only PATIENT PORTAL DO NOT DELETE THIS DEPT USED BY TAM[place] MAJANO [id number] Allergies Active Allergy Reactions Criticality Noted Date Comments Clindamycin Hives 08/26/2014 Codeine 10/25/2011 "Stupor", drowsy Other Allergy (See Comments) 024 Perfumes, hairspray, candles, etc. Sinus infections, headaches, very sensitive. Penicillins 01/30/2006 Hives ans swelling Sulfa Antibiotics 06/29/2010 Sick to her stomach documented as of this encounter (statuses as of 12/18/2023) Medications Medication Sig Dispensed Refills Start Date [...] as of this encounter (statuses as of 12/18/2023) Active Problems Problem Noted Date Diagnosed Date [...] as of this encounter (statuses as of 12/18/2023) Resolved Problems Problem Noted Date Diagnosed Date [...] or Kim Ríos, RN, CCRC at [phone] [facility] RESEARCH OTHER*[id number] 08/19/2006 11/06/2009 Overview: Renamed Per Clinical Trials Billing Project. Pt is a participant in the [facility] (Consortium of Rheumatology Researchers of [place]) national data collection study. For further information please call Dr Temo Castaneda or Kim Ríos RN, CCRC at [phone] Arthritis, rheumatoid 07/01/20062016 Abnormal blood chemistry 05/02/2006 Overview: positive rheumatoid factor. Metabolic syndrome 04/29/2006 0 Overview: insulin level 16 Mixed dyslipidemia 02/06/2006 9 Overview: Per Lipid Taxonomy. chol 192, hdl 26, trig 403 Allergic rhinitis due to pollen 01/30/2006 03/03/2017 Obesity, BMI not known 08/07 Overview: Per Obesity Taxonomy Denture irritation 0 documented as of this encounter (statuses as of 12/18/2023) Immunizations Name Administration Dates Next Due COVID-19 [...] 3:00 PM EDT Nurse Only Hematology/Oncology Scenery [facility] [address] [place] [address] [place], Nurse Hem Onc Scenery [address] [place] [address] 01/15/2024 2:30 PM EDT PulmDiagnostic Pulmonary Function Lab, [facility] 132 [facility] [place] [address] West, Pft 132 [facility] [place] [address] 01/15/2024 3:40 PM EDT Office Visit Pulmonary Medicine, [address] [place] [address] Eloy Pond MD 217 [address] [facility] [address] 02/06/2024 2:20 PM EDT Office Visit Family Medicine [address] [place] [phone] Amy Han PA-C [address] [place] [address] [place] [address] 10/15/2024 8:40 AM EDT Office Visit Rheumatology [address] [place] [phone] Samy Russo MD [facility]0 [facility] [place] [address] Health Maintenance Due Date Last Done Comments [...] filedocumented as of this encounter Care Teams Linen Grader Relationship Specialty Start Date End Date Edel Clay MD [address] [place] [address] [place] [address] PCP - General Family Medicine 03/03/17 documented as of this encounter
--- OUTSIDE RECORDS SUMMARY | 2024-06-12 02:42 | External Medical Summary | Summary of Care ---
Author Name Unknown Organization [facility] Address [address] [place] [address] Phone [phone] Care Team Providers Care Cable Installer Repairer Name Role Phone Edel Clay MD Primary Care Provide r Reason for Visit * Reason Comments eRx-Medication Refill Encounter Details Date Type Department Care Team (Late st Contact Info) Description 12/15/2023 Refill Rheumatology [address] [place] [phone] Alexandria [place] MD [address] [facility] [place] [address] Rheumatoid arthritis involving multiple sites with positive rheumatoid factor (HCC) Allergies Active Allergy Reactions Criticality Noted Date Comments Clindamycin Hives 08/26/2014 Codeine 10/25/2011 "Stupor", drowsy Other Allergy (See Comments) 024 Perfumes, hairspray, candles, etc. Sinus infections, headaches, very sensitive. Penicillins 01/30/2006 Hives ans swelling Sulfa Antibiotics 06/29/2010 Sick to her stomach documented as of this encounter (statuses as of 12/17/2023) Medications Medication Sig Dispensed Refills Start Date [...] as of this encounter (statuses as of 12/17/2023) Active Problems Problem Noted Date Diagnosed Date [...] as of this encounter (statuses as of 12/17/2023) Resolved Problems Problem Noted Date Diagnosed Date [...] Thyroiditis 07/18/2008 06/01/2019 Overview: thyroglobulin antibody >3000 [id number] 08/19/200608/10 Overview: Renamed Per Clinical Trials Billing Project. Pt is a participant in the [facility] (Consortium of Rheumatology Researchers of [place]) national data collection study. For further information please call Dr Temo Castaneda or Kim Ríos, RN, CCRC at [phone] [facility] RESEARCH OTHER*[id number] 08/19/2006 11/06/2009 Overview: Renamed Per Clinical Trials Billing Project. Pt is a participant in the [facility] (Consortium of Rheumatology Researchers of [place]) national data collection study. For further information please call Dr Temo Castaneda or Kim Ríos, RN, CCRC at [phone] Arthritis, rheumatoid 07/01/20062016 Abnormal blood chemistry 05/02/2006 Overview: positive rheumatoid factor. Metabolic syndrome 04/29/2006 0 Overview: insulin level 16 Mixed dyslipidemia 02/06/2006 9 Overview: Per Lipid Taxonomy. chol 192, hdl 26, trig 403 Allergic rhinitis due to pollen 01/30/2006 03/03/2017 Obesity, BMI not known 08/07 Overview: Per Obesity Taxonomy Denture irritation 0 documented as of this encounter (statuses as of 12/17/2023) Immunizations Name Administration Dates Next Due COVID-19 [...] encounter Miscellaneous Notes * Telephone Encounter - Alexandria [place] MD - 12/17/2023 4:55 PM EDTRefused Prescriptions: Disp Refills Orencia 125 MG/ML Subcutaneous Solution Pr*4 mL 5 Sig: INJECT 125 MG (1 SYRINGE) UNDER THE SKIN ONCE A WEEKRefused By: ALEXANDRIA MARTINEZ for Refusal: Other (comment below)Reason for Refusal Comment: Will place on hold as she is starting treatment for lung c ancer * Telephone Encounter - Alexandria [place] MD - 12/17/2023 4:55 PM EDT Will not refill for now as she is starting treatment for lung cancer soon * Telephone Encounter - Yoselin Quintanilla RPh - 12/16/2023 8:18 AM EDTPending Prescriptions: Disp Refills Orencia 125 MG/ML Subcutaneous Solution Pr*4 mL 5 Sig: INJECT 125 MG (1 SYRINGE) UNDER THE SKIN ONCE A WEEK * Telephone Encounter - Yoselin Quintanilla RPh - 12/16/2023 8:12 AM EDT Rheumatology: Refill Request(s) Per review of the refill parameters, Medication was NOT refilled d/t following concern: Chart review shows pt may have a new dx of smallcell lung cancer. Please advise. Yoselin Quintanilla [facility] Clinical Pharmacist Rheumatology Department 12/16/2023,8:14 AM documented in this encounter Plan of Treatment Upcoming Encounters Date Type Department Care Team (Late st Contact Info) Description 12/19/2023 3:00 PM EDT Nurse Only Hematology/Oncology [facility] [address] [place] [phone] [place], Nurse Hem Onc [facility] [address] [place] [address] 01/15/2024 2:30 PM EDT PulmDiagnostic Pulmonary Function Lab, [facility] 132 [facility] [place] [address] West, Pft 132 [facility] [place] [address] 01/15/2024 3:40 PM EDT Office Visit Pulmonary Medicine, [facility] 132 [facility] [place] [address] Eloy Pond MD [address] [facility] [place] [address] 02/06/2024 2:20 PM EDT Office Visit Family Medicine [address] [place] [phone] Amy Han PA-C [address] [place] [address] [place] [address] 10/15/2024 8:40 AM EDT Office Visit Rheumatology [address] [place] [phone] Alexandria [place] MD [facility]0 [facility] [place], [place] [address] Health Maintenance Due Date Last Done Comments [...] rheumatoid factor (HCC) documented in this encounter Care Teams Cable Installer Repairer Relationship Specialty Start Date End Date Edel Clay MD [address] [place] [address] [place] [address] PCP - General Family Medicine 03/03/17 documented as of this encounter
--- OUTSIDE RECORDS SUMMARY | 2024-06-12 02:42 | External Medical Summary | Summary of Care ---
Author Name Unknown Organization [facility] Address [address] [place] [address] Phone [phone] Care Team Providers Care Night Manager Name Role Phone Edel Clay MD Primary Care Provide r Reason for Visit * Reason Onset Date Comments Precert Future 12/16/2023 Tecentriq, carbo platin, etoposide ac Encounter Details Date Type Department Care Team (Late st Contact Info) Description 12/16/2023 Telephone Hematology/Oncology Treatment, [place] [address] [place] [address] Monica Ward MD [address] [place] [phone] Precert Future (Tecentriq, carboplatin, et... Allergies [...] Thyroiditis 07/18/2008 06/01/2019 Overview: thyroglobulin antibody >3000 [id number] 08/19/200608/10 Overview: Renamed Per Clinical Trials Billing Project. Pt is a participant in the [facility] (Consortium of Rheumatology Researchers of [place]) national data collection study. For further information please call Dr Temo Castaneda or Kim Ríos, RN, CCRC at [phone] [facility] RESEARCH OTHER*[id number] 08/19/2006 11/06/2009 Overview: Renamed Per Clinical Trials Billing Project. Pt is a participant in the [facility] (Consortium of Rheumatology Researchers of [place]) national data collection study. For further information please call Dr Temo Castaneda or Kim Ríos, RN, CCRC at [phone] Arthritis, rheumatoid 07/01/20062016 Abnormal blood chemistry 05/02/2006 [...] appts when she comes in this afternoon. 12/21/24 - 4 hour appt "C1D1 tecetriq, carbo, [...] Order received for tecentriq, carbo, etoposide, zometa. [place] plan built and routed for signature. Waiting [...] Department Care Team (Latest Contact Info) Description 12/19/2023 3:00 PM EDT Nurse Only Hematology/Oncolog y Scenery [place] [address] [place] [phone] [place], Nurse Hem Onc [facility] [address] [place] [address] 12/19/2023 4:00 PM EDT Laboratory Laboratory [facility] [place] [address] [place] [address] [place], Lab Scenery 200 [facility] [place] [address] 12/22/2023 12:00 PM EDT Hem/Onc Treatment Hematology/Oncolog y Treatment, [address] [address] [place], Chair 3 Hem Onc Scenery [address] [place] [address] 12/23/2023 12:15 PM EDT Hem/Onc Treatment Hematology/Oncolog y Treatment, [place] 200 [facility] [address] [place], Chair 1 Hem Onc Scenery [address] [place] [address] 12/24/2023 12:30 PM EDT Hem/Onc Treatment Hematology/Oncolog y Treatment, [place] [address] [place] [phone] [place], Chair 9 Hem Onc Scenery [address] [place] [address] 12/31/2023 12:00 PM EDT Hospital Encounter OR [facility], Operating Room, [facility] - 4th Floor 400 [place] [address] Sin Burroughs MD [address] [place] [address] 12/31/2023 12:00 PM EDT - 12/31/2023 12:57 PM EDT Surgery OR [facility], Operating Room, [facility] - 4th Floor 400 [place] [address] Sin Burroughs MD [address] [place] [address] INSERT TUNNELED CENTRAL VENOUS ACCESS WITH SUBQ PORT 01/15/2024 2:30 PM EDT PulmDiagnostic Pulmonary Function Lab, [facility] 132 [facility] [place] [address] West, Pft 132 [facility] [place] [address] 01/15/2024 3:40 PM EDT Office Visit Pulmonary Medicine, [facility] [address] [place] [address] Eloy Pond MD [address] [facility] [place] [address] 02/06/2024 2:20 PM EDT Office Visit [address] [place] [phone] Amy Han PA-C [address] [place] [address] [place] [address] 10/15/2024 8:40 AM EDT Office Visit Rheumatology [address] [place] [phone] Samy Russo MD [facility]0 [facility] [place] [address] Scheduled Orders Name Type Priority Associated Diagnoses Orde r Schedule HEPATITIS B SURFACE ANTIBODY Lab STAT Small cell lung cancer, right (HCC) Metastatic adenocarcinoma to liver (HCC) Cancer, metastatic to bone (HCC) Expected: 12/16/2023 (Approximate), Expires: 12/15/2024 HEPATITIS B SURFACE ANTIGEN Lab STAT Small cell lung cancer, right (HCC) Metastatic adenocarcinoma to liver (HCC) Cancer, metastatic to bone (HCC) Expected: 12/16/2023 (Approximate), Expires: 12/15/2024 HEPATITIS B CORE ANTIBODIES IGG AND IGM Lab STAT Small cell lung cancer, right (HCC) Metastatic adenocarcinoma to liver (HCC) Cancer, metastatic to bone (HCC) Expected: 12/16/2023 (Approximate), Expires: 12/15/2024 Scheduled Procedures Name Priority Associated Diagnoses Date/Ti [...] site documented in this encounter Care Teams Night Manager Relationship Specialty Start Date End Date Edel Clay MD [address] [place] [address] [place] [address] PCP - General Family Medicine 03/03/17 documented as of this encounter
--- OUTSIDE RECORDS SUMMARY | 2024-06-12 02:42 | External Medical Summary | Summary of Care ---
Author Name Unknown Organization [facility] Address [address] [place] [address] Phone [phone] Care Team Providers Care Stockroom Clerk Name Role Phone Edel Clay MD Primary Care Provide r Reason for Visit * Reason Onset Date Comments Precert Future 12/16/2023 Tecentriq, carbo platin, etoposide ac Encounter Details Date Type Department Care Team (Late st Contact Info) Description 12/16/2023 Telephone Hematology/Oncology Treatment, [place] [address] [place] [address] Monica Ward MD [address] [place] [phone] Precert Future (Tecentriq, carboplatin, et... Allergies [...] Thyroiditis 07/18/2008 06/01/2019 Overview: thyroglobulin antibody >3000 [id number] 08/19/200608/10 Overview: Renamed Per Clinical Trials Billing Project. Pt is a participant in the [facility] (Consortium of Rheumatology Researchers of [place]) national data collection study. For further information please call Dr Temo Castaneda or Kim Ríos, RN, CCRC at [phone] [facility] RESEARCH OTHER*[id number] 08/19/2006 11/06/2009 Overview: Renamed Per Clinical Trials Billing Project. Pt is a participant in the [facility] (Consortium of Rheumatology Researchers of [place]) national data collection study. For further information please call Dr Temo Castaneda or Kim Ríos, RN, CCRC at [phone] Arthritis, rheumatoid 07/01/20062016 Abnormal blood chemistry 05/02/2006 [...] Order received for tecentriq, carbo, etoposide, zometa. [place] plan built and routed for signature. Waiting [...] PM EDT Nurse Only Hematology/Oncolog y [facility]en[facility] [place] [address] [place] [phone] [place], Nurse Hem Onc Scen[place] [address] [place] [address] 12/19/2023 4:00 PM EDT Laboratory Laboratory [facility] [place] [address] [place] [phone] [place], Lab Scenery [address] [place] [address] 12/31/2023 12:00 PM EDT Hospital Encounter OR [facility], Operating Room, [facility] - 4th Floor [address] [place] [address] Sin Burroughs MD [address] [place] [address] 12/31/2023 12:00 PM EDT - 12/31/2023 12:57 PM EDT Surgery OR [facility], Operating Room, [facility] - 4th Floor [address] [place] [address] Sin Burroughs MD [address] [place] [address] INSERT TUNNELED CENTRAL VENOUS ACCESS WITH SUBQ PORT 01/15/2024 2:30 PM EDT PulmDiagnostic Pulmonary Function Lab, [facility] 132 [facility] [place] [address] West, Pft [address] [place] [address] 01/15/2024 3:40 PM EDT Office Visit Pulmonary Medicine, [facility] [address] [place] [address] Eloy Pond MD [address] [facility] [place] [address] 02/06/2024 2:20 PM EDT Office Visit Family Medicine [address] [place] [phone] Amy Han PA-C [address] [place] [address] [place] [address] 10/15/2024 8:40 AM EDT Office Visit Rheumatology [address] [place] [phone] Samy Russo MD [address] [facility] [place] [address] Scheduled Orders Name Type Priority Associated Diagnoses [...] 06/01/2019 Colorectal Cancer Screening 06/01/2022 COVID-19 Vaccine (2022- season) 2023 01/18/2022, 06/09/2021, 12/27/2020, Additional history [...] site documented in this encounter Care Teams Stockroom Clerk Relationship Specialty Start Date End Date Edel Clay MD [address] [place] [address] [place] [address] PCP - General Family Medicine 03/03/17 documented as of this encounter
--- OUTSIDE RECORDS SUMMARY | 2024-06-12 02:42 | External Medical Summary | Summary of Care ---
Author Name Unknown Organization [facility] Address [address] [place] [address] Phone [phone] Care Team Providers Care Websphere Commerce Developer Name Role Phone Edel Clay MD Primary Care Provide r Reason for Visit * Reason Onset Date Comments Encounter Created in Error 12/18/2023 Encounter Details Date Type Department Care Team (Late st Contact Info) Description 12/18/2023 Refill Hematology/Oncology Treatment, [place] [address] [place] [address] Monica Ward MD [address] [place] [address] Allergies Active Allergy Reactions Criticality Noted [...] Thyroiditis 07/18/2008 06/01/2019 Overview: thyroglobulin antibody >3000 [id number] 08/19/200608/10 Overview: Renamed Per Clinical Trials Billing Project. Pt is a participant in the [facility] (Consortium of Rheumatology Researchers of [place]) national data collection study. For further information please call Dr Temo Castaneda or Kim Ríos, RN, CCRC at [phone] [facility] RESEARCH OTHER*[id number] 08/19/2006 11/06/2009 Overview: Renamed Per Clinical Trials Billing Project. Pt is a participant in the [facility] (Consortium of Rheumatology Researchers [facility]) national data collection study. For further information please call Dr Temo Castaneda or Kim Ríos, RN, CCRC at [phone] Arthritis, rheumatoid 07/01/20062016 Abnormal blood chemistry 05/02/2006 [...] 3:00 PM EDT Nurse Only Hematology/Oncolog y [facility] [place] [address] [place] [phone] [place], Nurse Hem Onc Scenery [address] [place] [address] 12/19/2023 4:00 PM EDT Laboratory Laboratory [facility] [place] [address] [place] [phone] [place] Lab [facility] 200 [facility] [place] [address] 12/31/2023 12:00 PM EDT Hospital Encounter OR [facility], Operating Room, [facility] - 4th Floor [address] [place] [address] Sin Burroughs MD [address] [place] [address] 12/31/2023 12:00 PM EDT - 12/31/2023 12:57 PM EDT Surgery OR [facility], Operating Room, [facility] - 4th Floor [address] [place] [address] Sin Burroughs MD [facility] [place] [address] INSERT TUNNELED CENTRAL VENOUS ACCESS WITH SUBQ PORT 01/15/2024 2:30 PM EDT PulmDiagnostic Pulmonary Function Lab, [facility] 132 [facility] [place] [address] West, Pft [facility] [place] [address] 01/15/2024 3:40 PM EDT Office Visit Pulmonary Medicine, [facility] [address] [place] [address] Eloy Pond MD [address] [place] [address] 02/06/2024 2:20 PM EDT Office Visit Family Medicine [address] [place] [phone] Amy Han PA-C [address] [place] [address] [place] [address] 10/15/2024 8:40 AM EDT Office Visit Rheumatology [address] [place] [phone] Samy Russo MD [facility] [place] [address] Scheduled Procedures Name Priority Associated Diagnoses Date/Ti [...] filedocumented as of this encounter Care Teams Websphere Commerce Developer Relationship Specialty Start Date End Date Edel Clay MD [address] [place] [address] [place] [address] PCP - General Family Medicine 03/03/17 documented as of this encounter
--- OUTSIDE RECORDS SUMMARY | 2024-06-12 02:42 | External Medical Summary ---
Author Name Unknown Address Unknown Organization K09:[facility] [place] [address] Laboratory Report Ordering Provider Test Date Status AKILAH ROMERO 12/19/2023 16:12:20 Final Warfarin Therapy
INR: 2 .0-3.0 conventional anticoagulation
INR: 2.5- 3.5 high intensity anticoagulation Observation Date Value Abnormality Reference (Units ) Status PT 12/19/2023 16:12:20 12.6 11.6-15.2 (seconds) Final INR 12/19/2023 16:12:20 1.0 0.8-1.2 Final Performing Location [facility] [place] [place] [address]
--- OUTSIDE RECORDS SUMMARY | 2024-06-12 02:42 | External Medical Summary ---
Author Name Unknown Address Unknown Organization K01:[facility] - [address] [facility] [place] [address] Laboratory Report Ordering Provider Test Date Status AKILAH ROMERO 12/19/2023 16:12:20 Final Observation Date Value Abnormality Reference (Units ) Status SYNC LEUKOCYTES IN BLOOD BY AUTOMATED COUNT 12/19/2023 16:12:20 8.29 4.00-10.80 (K/uL) Final Segs 12/19/2023 16:12:20 57.1 40.0-75.0 (%) Final Lymphs % 12/19/2023 16:12:20 34.5 18.0-42.0 (%) Final Monos 12/19/2023 16:12:20 7.2 1.0-11.0 (%) Final Eosinophils 12/19/2023 16:12:20 0.5 0.0-6.0 (%) Final Basos 12/19/2023 16:12:20 0.5 0.0-2.0 (%) Final Immature Granulocyte, Percent 12/19/2023 16:12:20 0.2 0.0-2.0 (%) Final Absolute Segs 12/19/2023 16:12:20 4.73 1.80-7.70 (K/uL) Final Lymphs, absolute 12/19/2023 16:12:20 2.86 1.00-4.80 (K/ul) Final Monos, Abs 12/19/2023 16:12:20 0.60 0.00-1.10 (K/uL) Final Eos, Abs 12/19/2023 16:12:20 0.04 0.00-0.70 (K/uL) Final Basos, Abs 12/19/2023 16:12:20 0.04 0.00-0.20 (K/uL) Final Immature Granulocytes, Number 12/19/2023 16:12:20 0.02 0.00-0.20 (K/uL) Final Performing Location [facility] - [address] [facility] [address]
--- OUTSIDE RECORDS SUMMARY | 2024-06-12 02:42 | External Medical Summary ---
Author Name Unknown Address Unknown Organization K01:[facility] - [address] [place] [address] Laboratory Report Ordering Provider Test Date Status HEATHERSAGARMADIEMARTIN 12/19/2023 16:12:20 Final Observation Date Value Abnormality Reference (Units ) Status Hepatitis B virus core Ab [Presence] in Serum 12/19/2023 16:12:20 Negative Negative Final Performing Location [facility] - [address] [place] [address]
--- OUTSIDE RECORDS SUMMARY | 2024-06-12 02:42 | External Medical Summary | Summary of Care ---
Author Name Unknown Organization [facility] Address [address] [place] [address] Phone [phone] Care Team Providers Care Rapid Extractor Operator Name Role Phone Edel Clay MD Primary Care Provide r Reason for Visit * Reason Comments eRx-Medication Refill Encounter Details Date Type Department Care Team (Late st Contact Info) Description 12/15/2023 Refill Rheumatology [address] [place] [phone] Alexandria Martinez MD [address] [facility] [place] [address] Rheumatoid arthritis involving multiple sites with positive [...] Thyroiditis 07/18/2008 06/01/2019 Overview: thyroglobulin antibody >3000 [id number] 08/19/200608/10 Overview: Renamed Per Clinical Trials Billing Project. Pt is a participant in the [facility] (Consortium of Rheumatology Researchers of [place]) national data collection study. For further information please call Dr Temo Castaneda or Kim Ríos, RN, CCRC at [phone] [facility] RESEARCH OTHER*[id number] 08/19/2006 11/06/2009 Overview: Renamed Per Clinical Trials Billing Project. Pt is a participant in the [facility] (Consortium of Rheumatology Researchers of [place]) national data collection study. For further information please call Dr Temo Castaneda or Kim Ríos, RN, CCRC at [phone] Arthritis, rheumatoid 07/01/20062016 Abnormal blood chemistry 05/02/2006 [...] A WEEKRefused By: ALEXANDRIA MARTINEZ for Refusal: Other(comment below)Reason for Refusal Comment: Will place on hold as she is starting treatment for lung cancer * Telephone Encounter - Alexandria Martinez MD [...] smallcell lung cancer. Please advise. Yoselin Quintanilla [facility] Clinical Pharmacist Rheumatology Department 12/16/2023,8:14 AM documented in this encounter Plan of Treatment Upcoming Encounters Date Type Department Care Team (Late st Contact Info) Description 12/19/2023 3:00 PM EDT Nurse Only Hematology/Oncology [facility] [address] [place] [phone] [place], Nurse Hem Onc [facility] [address] [place] [address] 01/15/2024 2:30 PM EDT PulmDiagnostic Pulmonary Function Lab, [facility] 132 [facility] [place] [address] West, Pft [address] [facility] [place] [address] 01/15/2024 3:40 PM EDT Office Visit Pulmonary Medicine, [facility] 132 [facility] [place] [address] Eloy Pond MD [address] [facility] [place] [address] 02/06/2024 2:20 PM EDT Office Visit Family Medicine [address] [place] [phone] Amy Han PA-C [address] [place] [address] [place] [address] 10/15/2024 8:40 AM EDT Office Visit Rheumatology [address] [place] [phone] Alexandria Martinez MD [address] [facility] [place], [place] [address] Health Maintenance Due Date Last Done Comments [...] (HCC) documented in this encounter Care Teams Rapid Extractor Operator Relationship Specialty Start Date End Date Edel Clay MD [address] [place] [address] [place] [address] PCP - General Family Medicine 03/03/17 documented as of this encounter
--- OUTSIDE RECORDS SUMMARY | 2024-06-12 02:42 | External Medical Summary | Summary of Care ---
Author Name Unknown Organization [facility] Address [address] [place] [address] Phone [phone] Care Team Providers Care Underwater Welder Name Role Phone Edel Clay MD Primary Care Provide r Reason for Visit * Reason Comments eRx-Medication Refill Encounter Details Date Type Department Care Team (Late st Contact Info) Description 12/15/2023 Refill Rheumatology [address] [place] [phone] Alexandria Martinez MD [address] [facility] [place] [address] Rheumatoid arthritis involving multiple sites with positive [...] Thyroiditis 07/18/2008 06/01/2019 Overview: thyroglobulin antibody >3000 [id number] 08/19/200608/10 Overview: Renamed Per Clinical Trials Billing Project. Pt is a participant in the [facility] (Consortium of Rheumatology Researchers of [place]) national data collection study. For further information please call Dr Temo Castaneda or Kim Ríos, RN, CCRC at [phone] [facility] RESEARCH OTHER*[id number] 08/19/2006 11/06/2009 Overview: Renamed Per Clinical Trials Billing Project. Pt is a participant in the [facility] (Consortium of Rheumatology Researchers of [place]) national data collection study. For further information please call Dr Temo Castaneda or Kim Ríos, RN, CCRC at [phone] Arthritis, rheumatoid 07/01/20062016 Abnormal blood chemistry 05/02/2006 [...] smallcell lung cancer. Please advise. Yoselin Quintanilla [facility] Clinical Pharmacist Rheumatology Department 12/16/2023,8:14 AM documented in this encounter Plan of Treatment Upcoming Encounters Date Type Department Care Team (Late st Contact Info) Description 12/19/2023 3:00 PM EDT Nurse Only Hematology/Oncology [facility] [address] [place] [phone] [place], Nurse Hem Onc [facility] [address] [place] [address] 01/15/2024 2:30 PM EDT PulmDiagnostic Pulmonary Function Lab, [facility] 132 [facility] [place] [address] West, Pft [address] [facility] [place] [address] 01/15/2024 3:40 PM EDT Office Visit Pulmonary Medicine, [facility] 132 [facility] [place] [address] Eloy Pond MD [address] [facility] [place] [address] 02/06/2024 2:20 PM EDT Office Visit Family Medicine [address] [place] [phone] Amy Han PA-C [address] [place] [address] [place] [address] 10/15/2024 8:40 AM EDT Office Visit Rheumatology [address] [place] [phone] Alexandria Martinez MD [address] [facility] [place], [place] [address] Health Maintenance Due Date Last Done Comments [...] (HCC) documented in this encounter Care Teams Underwater Welder Relationship Specialty Start Date End Date Edel Clay MD [address] [place] [address] [place] [address] PCP - General Family Medicine 03/03/17 documented as of this encounter
--- OUTSIDE RECORDS SUMMARY | 2024-06-12 02:42 | External Medical Summary | Summary of Care ---
Author Name Unknown Organization [facility] Address [address] [place] [address] Phone [phone] Care Team Providers Care Powder Coat Painter Name Role Phone Edel Clay MD Primary Care Provide r Reason for Visit * Reason Onset Date Comments Scheduling 12/17/2023 Encounter Details Date Type Department Care Team (Late st Contact Info) Description 12/17/2023 Telephone Hematology/Oncology, [facility] [address] [place], [place] [phone] Monica Ward MD [address] [place] [address] Scheduling Allergies Active Allergy Reactions Criticality Noted Date [...] Thyroiditis 07/18/2008 06/01/2019 Overview: thyroglobulin antibody >3000 [id number] 08/19/200608/10 Overview: Renamed Per Clinical Trials Billing Project. Pt is a participant in the [facility] (Consortium of Rheumatology Researchers of [place]) national data collection study. For further information please call Dr Temo Castaneda or Kim Ríos, RN, CCRC at [phone] [facility] RESEARCH OTHER*[id number] 08/19/2006 11/06/2009 Overview: Renamed Per Clinical Trials Billing Project. Pt is a participant in the [facility] (Consortium of Rheumatology Researchers of [facility]) national data collection study. For further information please call Dr Temo Castaneda or Kim Ríos, RN, CCRC at [phone] Arthritis, rheumatoid 07/01/20062016 Abnormal blood chemistry 05/02/2006 [...] Encounter - Marcela Orellana RN - 12/19/2023 10:43 AM EDT Spoke to Dr Carrion and clarified- if hemanth approved, will give this on day 4. * Telephone Encounter - Adina Abdul OSA - 12/17/2023 2:41 PM EDT Patient was called and Mediport is scheduled for 12/30 at [facility] She was given 12/17 at [facility] but found out she didn't want [facility] and the 12/25 opening was already filled until the patient had called back . * Telephone Encounter - Marcela Orellana RN - 12/17/2023 2:33 PM EDT Called patient. Advised her that we can start chemotherapy peripherally. Goal is to have port placed before 2nd cycle which will be 01/13/24. Patient states that she accepted an appt at [facility] for tomorrow; [facility] she is trying to figure out how she would even get there. Would like to cancel this appt and reschedule at [facility]. She has the phone numbers so will call and reschedule this. * Telephone Encounter - Prem Toro OSA - 12/17/2023 1:09 PM EDT Monica Ward MD Patient is upset due to the fact that she received a call from the [facility]. They told her that they can not get her in for a medi port until next Friday which is 12/26/23. If the appointment is still available. On 12/19/23 she has an appointment for a nurse education visit. She stated that she really wants to start her chemo and could her chemo be scheduled to do without the port? She stated that she can get in [place] tomorrow but that is a 2 hour away Hospital. She stated that shedoesn't even have a full day of work. She is crying. * Telephone Encounter - Adina Abdul OSA - 12/17/2023 12:58 PM EDT Patient was called to schedule the Mediport Insertion for here at [facility] and she was offered 12/23 or 12/25 that was our first opening since we are so busy and she is to start her chemo on 12/22 so I suggested she reach out to [facility] they might have sooner so she was transferred and they are to get her in on 12/17 at [facility] for the Port placement. documented in this encounter Plan of Treatment Upcoming Encounters Date Type Department Care Team (Latest Contact Info) Description 12/19/2023 3:00 PM EDT Nurse Only Hematology/Oncolog y [facility] [address] [place] [phone] [place], Nurse Hem Onc [place] [address] [place] [address] [address] 12/19/2023 4:00 PM EDT Laboratory Laboratory [facility] [address] [place] [address] [phone] [place] [facility] [address] [place] [address] 12/31/2023 12:00 PM EDT Hospital Encounter OR [facility], Operating Room, [facility] - 4th Floor [address] [place] [address] Sin Burroughs MD [address] [place] [address] 12/31/2023 12:00 PM EDT - 12/31/2023 12:57 PM EDT Surgery OR [facility], Operating Room, [facility] - 4th Floor [address] [place] [address] Sin Burroughs MD [address] [place] [address] INSERT TUNNELED CENTRAL VENOUS ACCESS WITH SUBQ PORT 01/15/2024 2:30 PM EDT PulmDiagnostic Pulmonary Function Lab, [facility] [address] [place] [address] West, Pft [address] [place] [address] 01/15/2024 3:40 PM EDT Office Visit Pulmonary Medicine, [facility] 132 [facility] [place] [address] Eloy Pond MD [address] [place] [address] 02/06/2024 2:20 PM EDT Office Visit Family Medicine [address] [place] [phone] Amy Han PA-C [address] [place] [address] [place] [address] 10/15/2024 8:40 AM EDT Office Visit Rheumatology [address] [place] [phone] Samy Russo MD [facility] [place] [address] Scheduled Procedures Name Priority Associated Diagnoses Date/Ti [...] filedocumented as of this encounter Care Teams Powder Coat Painter Relationship Specialty Start Date End Date Edel Clay MD [address] [place] [address] [place] [address] PCP - General Family Medicine 03/03/17 documented as of this encounter
--- OUTSIDE RECORDS SUMMARY | 2024-06-12 02:42 | External Medical Summary ---
Author Name Unknown Address Unknown Organization K01:[facility] - [address] [place] [address] Laboratory Report Ordering Provider Test Date Status AKILAH ROMERO 12/19/2023 16:12:20 Final Observation Date Value Abnormality Reference (Units ) Status [facility] 12/19/2023 16:12:20 414 Above high normal <= 250 (U/L) Final Result may be falsely elevat ed due to hemolysis. Performing Location [facility] - [address] [place] [address]
--- OUTSIDE RECORDS SUMMARY | 2024-06-12 02:43 | External Medical Summary | Summary of Care ---
Author Name Unknown Organization [facility] Address [address] [place] [address] Phone [phone] Care Team Providers Care Pulping Machine Operator Name Role Phone Edel Clay MD Primary Care Provide r Reason for Visit * Reason Onset Date Comments Precert Future 12/16/2023 Tecentriq, carbo platin, etoposide Encounter Details Date Type Department Care Team (Late st Contact Info) Description 12/16/2023 Telephone Hematology/Oncology Treatment, [place] [address] [place] [address] Monica Ward MD [address] [place] [phone] Precert Future (Tecentriq, carboplatin, et... Allergies [...] Thyroiditis 07/18/2008 06/01/2019 Overview: thyroglobulin antibody >3000 [id number] 08/19/200608/10 Overview: Renamed Per Clinical Trials Billing Project. Pt is a participant in the [facility] (Consortium of Rheumatology Researchers of [place]) national data collection study. For further information please call Dr Temo Castaneda or Kim Ríos, RN, CCRC at [phone] [facility] RESEARCH OTHER*[id number] 08/19/2006 11/06/2009 Overview: Renamed Per Clinical Trials Billing Project. Pt is a participant in the [facility] (Consortium of Rheumatology Researchers of [place]) national data collection study. For further information please call Dr Temo Castaneda or Kim Ríos, RN, CCRC at [phone] Arthritis, rheumatoid 07/01/20062016 Abnormal blood chemistry 05/02/2006 [...] as of this encounter Miscellaneous Notes * Addendum Note - Elizabeth Faria MD [...] Order received for tecentriq, carbo, etoposide, zometa. [place] plan built and routed for signature. Waiting [...] 12/19/2023 3:00 PM EDT Nurse Only Hematology/Oncology [facility] 200 [facility] [place] [id number] [place], Nurse Hem Onc [facility] 200 [facility] [place] [address] 01/15/2024 2:30 PM EDT PulmDiagnostic Pulmonary Function Lab, [facility] 132 [facility] [place] [address] West, Pft 132 [facility] [place] [address] 01/15/2024 3:40 PM EDT Office Visit Pulmonary Medicine, [facility] 132 [facility] [place] [address] Eloy Pond MD [address] [facility] [address] 02/06/2024 2:20 PM EDT Office Visit Family Medicine [address] [place] [phone] Amy Han PA-C [address] [place] [address] [place] [address] 10/15/2024 8:40 AM EDT Office Visit Rheumatology [address] [place] [phone] [place] [address] [place] [address] [facility] [place] [address] Scheduled Orders Name Type Priority Associated Diagnoses [...] bone (HCC) Expected: 12/16/2023 (Approximate), Expires: 12/15/2024 Health Maintenance Due Date Last Done Comments [...] exists HbA1c 08/06/2024 08/07/2023 TSH 08/06/2024 08/07/2023, /11/2022, 07/31/2021, Additional history exists Mammogram 09/11/2024 09/12/2023, [...] marrow documented in this encounter Care Teams Pulping Machine Operator Relationship Specialty Start Date End Date Edel Clay MD [address] [place] [address] [place] [address] PCP - General Family Medicine 03/03/17 documented as of this encounter
--- OUTSIDE RECORDS SUMMARY | 2024-06-12 02:43 | External Medical Summary | Summary of Care ---
Author Name Unknown Organization [facility] Address [address] [place] [address] Phone [phone] Care Team Providers Care Clinical Trial Head Name Role Phone Edel Clay MD Primary Care Provide r Reason for Visit * Reason Onset Date Comments Precert Future 12/16/2023 Tecentriq, carbo platin, etoposide Encounter Details Date Type Department Care Team (Late st Contact Info) Description 12/16/2023 Telephone Hematology/Oncology Treatment, [place] [address] [place] [address] Monica Ward MD [address] [place] [phone] Precert Future (Tecentriq, carboplatin, et... Allergies [...] Thyroiditis 07/18/2008 06/01/2019 Overview: thyroglobulin antibody >3000 [id number] 08/19/200608/10 Overview: Renamed Per Clinical Trials Billing Project. Pt is a participant in the [facility] (Consortium of Rheumatology Researchers of [place]) national data collection study. For further information please call Dr Temo Castaneda or Kim Ríos, RN, CCRC at [phone] [facility] RESEARCH OTHER*[id number] 08/19/2006 11/06/2009 Overview: Renamed Per Clinical Trials Billing Project. Pt is a participant in the [facility] (Consortium of Rheumatology Researchers of [place]) national data collection study. For further information please call Dr Temo Castaneda or Kim Ríos, RN, CCRC at [phone] Arthritis, rheumatoid 07/01/20062016 Abnormal blood chemistry 05/02/2006 [...] Order received for tecentriq, carbo, etoposide, zometa. [place] plan built and routed for signature. Waiting [...] 12/19/2023 3:00 PM EDT Nurse Only Hematology/Oncology [facility] [address] [place] [address] [place], Nurse Hem Onc [facility] 200 [facility] [place] [address] 01/15/2024 2:30 PM EDT PulmDiagnostic Pulmonary Function Lab, [facility] 132 [facility] [place] [address] West, Pft 132 [facility] [place] [address] 01/15/2024 3:40 PM EDT Office Visit Pulmonary Medicine, [facility] [address] [place] [address] Eloy Pond MD [address] [place] [address] 02/06/2024 2:20 PM EDT Office Visit [address] [phone] Amy Han PA-C [address] [place] [address] [place] [address] 10/15/2024 8:40 AM EDT Office Visit Rheumatology [address] [place] [phone] Samy Russo MD [address] [place] [address], [place] [address] Scheduled Orders Name Type Priority Associated Diagnoses [...] marrow documented in this encounter Care Teams Clinical Trial Head Relationship Specialty Start Date End Date Edel Clay MD [address] [place] [address] [place] [phone] PCP - General Family Medicine 03/03/17 documented as of this encounter
--- OUTSIDE RECORDS SUMMARY | 2024-06-12 02:43 | External Medical Summary | Summary of Care ---
Author Name Unknown Organization [facility] Address [address] [place] [address] Phone [phone] Care Team Providers Care Diversified Crops I Farmworker Name Role Phone Edel Clay MD Primary Care Provide r Reason for Visit * Reason Onset Date Comments Scheduling 12/17/2023 Encounter Details Date Type Department Care Team (Late st Contact Info) Description 12/17/2023 Telephone Hematology/Oncology, [facility] [address] [place], [place] [phone] Monica Ward MD [address] [place] [address] Scheduling Allergies Active Allergy Reactions [...] Thyroiditis 07/18/2008 06/01/2019 Overview: thyroglobulin antibody >3000 [id number] 08/19/200608/10 Overview: Renamed Per Clinical Trials Billing Project. Pt is a participant in the [facility] (Consortium of Rheumatology Researchers of [place]) national data collection study. For further information please call Dr Temo Castaneda or Kim Ríos, RN, CCRC at [phone] [facility] RESEARCH OTHER*[id number] 08/19/2006 11/06/2009 Overview: Renamed Per Clinical Trials Billing Project. Pt is a participant in the [facility] (Consortium of Rheumatology Researchers of [place] [facility]) national data collection study. For further information please call Dr Temo Castaneda or Kim Ríos, RN, CCRC at [phone] Arthritis, rheumatoid 07/01/20062016 Abnormal blood chemistry 05/02/2006 [...] encounter Miscellaneous Notes * Telephone Encounter - Prem Toro OSA - 12/17/2023 1:09 PM EDT Monica Ward MD Patient is upset due to the fact that she received a call from the [facility]. They told her that they can not [...] She stated that she can get in [place] tomorrow but that is a 2 hour away Hospital. She stated that shedoesn't even have a full day of work. She is crying. * Telephone Encounter - Adina Abdul OSA - 12/17/2023 12:58 PM EDT Patient was called to schedule the Mediport Insertion for here at [facility] and she was offered 12/23 or 12/25 that was our first opening since we are so busy and she is to start her chemo on 12/22 so I suggested she reach out to [facility] they might have sooner so she was transferred and they are to get her in on 12/17 at [facility] for the Port placement. documented in this encounter Plan of Treatment Upcoming Encounters Date Type Department Care Team (Late st Contact Info) Description 12/18/2023 1:00 PM EDT Hospital Encounter Interventional Radiology [facility], [place] Dom[place] 1st Floor [address] [place] [address] 12/19/2023 3:00 PM EDT Nurse Only Hematology/Oncology [place] [address] [place] [address] [place], Nurse Hem Onc [place] [address] [place] [address] 01/15/2024 2:30 PM EDT PulmDiagnostic Pulmonary Function Lab, [facility] 132 [facility] [place] [address] West, Pft 132 [facility] [place] [address] 01/15/2024 3:40 PM EDT Office Visit Pulmonary Medicine, [facility] 132 [facility] [place] [address] Eloy Pond MD [address] [facility] [address] 02/06/2024 2:20 PM EDT Office Visit Family Medicine [address] [place] [phone] Amy aHn, PA-C [address] [place] [address] [place] [address] 10/15/2024 8:40 AM EDT Office Visit Rheumatology [address] [place] [phone] Samy Russo MD [facility]0 [facility] [place] [address] Health Maintenance Due Date Last Done Comments [...] filedocumented as of this encounter Care Teams Diversified Crops I Farmworker Relationship Specialty Start Date End Date Edel Clay MD [address] [place] [address] [place] [phone] PCP - General Family Medicine 03/03/17 documented as of this encounter
--- OUTSIDE RECORDS SUMMARY | 2024-06-12 02:43 | External Medical Summary | Summary of Care ---
Author Name Unknown Organization [facility] Address [address] [place] [address] Phone [phone] Care Team Providers Care Barking Machine Feeder Name Role Phone Edel Clay MD Primary Care Provide r Encounter Details Date Type Department Care Team (Late st Contact Info) Description 12/17/2023 Orders Only Hematology/Oncology, [facility] [address] [place] [address] Eleanor Galvez MD 200 [place] [address] Allergies Active Allergy Reactions Criticality Noted Date [...] Thyroiditis 07/18/2008 06/01/2019 Overview: thyroglobulin antibody >3000 [id number] 08/19/200608/10 Overview: Renamed Per Clinical Trials Billing Project. Pt is a participant in the [facility] (Consortium of Rheumatology Researchers of [place]) national data collection study. For further information please call Dr Temo Castaneda or Kim Ríos, RN, CCRC at [phone] [facility] RESEARCH OTHER*[id number] 08/19/2006 11/06/2009 Overview: Renamed Per Clinical Trials Billing Project. Pt is a participant in the [facility] (Consortium of Rheumatology Researchers of [place]) national data collection study. For further information please call Dr Temo Castaneda or Kim Ríos, RN, CCRC at [phone] Arthritis, rheumatoid 07/01/20062016 Abnormal blood chemistry 05/02/2006 [...] 3:00 PM EDT Nurse Only Hematology/Oncology [facility] [place] [address] [place] [phone] [place], Nurse Hem Onc [facility] 200 [facility] [place] [address] 01/15/2024 2:30 PM EDT PulmDiagnostic Pulmonary Function Lab, [facility] 132 [facility] [place] [address] West, Pft 132 [facility] [place] [address] 01/15/2024 3:40 PM EDT Office Visit Pulmonary Medicine, [facility] 132 [facility] [place] [address] Eloy Pond MD [address] [facility] [place] [address] 02/06/2024 2:20 PM EDT Office Visit Family Medicine [address] [place] [phone] Amy Han PA-C [address] [place] [address] [place] [address] 10/15/2024 8:40 AM EDT Office Visit Rheumatology [address] [place] [phone] Samy Russo MD [address] [facility] [place] [address] Health Maintenance Due Date Last Done Comments [...] filedocumented as of this encounter Care Teams Barking Machine Feeder Relationship Specialty Start Date End Date Obed, Doriann Torrez, MD [address] [place] [address] [place] [phone] PCP - General Family Medicine 03/03/17 documented as of this encounter
--- OUTSIDE RECORDS SUMMARY | 2024-06-12 02:43 | External Medical Summary | Summary of Care ---
Author Name Unknown Organization [facility] Address [address] [place] [address] Phone [phone] Care Team Providers Care Freight Flagman Name Role Phone Edel Clay MD Primary Care Provide r Reason for Visit * Reason Onset Date Comments Scheduling 12/17/2023 Encounter Details Date Type Department Care Team (Late st Contact Info) Description 12/17/2023 Telephone Hematology/Oncology, [facility] 400 [place], [place] [phone] Monica Ward MD 400 [place] [address] Scheduling Allergies Active Allergy Reactions [...] Thyroiditis 07/18/2008 06/01/2019 Overview: thyroglobulin antibody >3000 [id number] 08/19/200608/10 Overview: Renamed Per Clinical Trials Billing Project. Pt is a participant in the [facility] (Consortium of Rheumatology Researchers of [place]) national data collection study. For further information please call Dr Temo Castaneda or Kim Ríos, RN, CCRC at [phone] [facility] RESEARCH OTHER*[id number] 08/19/2006 11/06/2009 Overview: Renamed Per Clinical Trials Billing Project. Pt is a participant in the [facility] (Consortium of Rheumatology Researchers of [place] [facility]) national data collection study. For further information please call Dr Temo Castaneda or Kim Ríos, RN, CCRC at [phone] Arthritis, rheumatoid 07/01/20062016 Abnormal blood chemistry 05/02/2006 [...] encounter Miscellaneous Notes * Telephone Encounter - Adina Abdul OSA - 12/17/2023 2:41 PM EDT Patient was called and Mediport is scheduled for 12/30 at [facility]. She was given 12/17 at [facility] but found out she didn't want [facility] and the 12/25 opening was already filled until the patient had called back . * Telephone Encounter - Marcela Orellana RN - 12/17/2023 2:33 PM EDT Called patient. Advised her that we can start chemotherapy peripherally. Goal is to have port placed before 2nd cycle which will be 01/13/24. Patient states that she accepted an appt at [facility] for tomorrow; however, this is much further for heran [facility] and she is trying to figure out how she would even get there. Would like to cancel this appt and reschedule at [facility]. She has the phone numbers so will call and reschedule this. * Telephone Encounter - Prem Toro OSA - 12/17/2023 1:09 PM EDT Monica Ward MD Patient is upset due to the fact that she received a call from the [facility]. They told her that they can not [...] She stated that she can get in [place] tomorrow but that is a 2 hour away Hospital. She stated that shedoesn't even have a full day of work. She is crying. * Telephone Encounter - Adina Abdul OSA - 12/17/2023 12:58 PM EDT Patient was called to schedule the Mediport Insertion for here at [facility] and she was offered 12/23 or 12/25 that was our first opening since we are so busy and she is to start her chemo on 12/22 so I suggested she reach out to [facility] they might have sooner so she was transferred and they are to get her in on 12/17 at [facility] for the Port placement. documented in this encounter Plan of Treatment Upcoming Encounters Date Type Department Care Team (Late st Contact Info) Description 12/18/2023 1:00 PM EDT Hospital Encounter Interventional Radiology [facility], [facility] 1st Floor [address] [place] [facility] [place] [address] 12/19/2023 3:00 PM EDT Nurse Only Hematology/Oncology [facility] [address] [place] [phone] [place], Nurse Hem Onc [place] [address] [place] [address] 01/15/2024 2:30 PM EDT PulmDiagnostic Pulmonary Function Lab, [facility] 132 [facility] [place] [address] West, Pft 132 [facility] [place] [address] 01/15/2024 3:40 PM EDT Office Visit Pulmonary Medicine, [facility] 132 [facility] [place] [address] Eloy Pond MD [address] [place] [address] 02/06/2024 2:20 PM EDT Office Visit Family Medicine [address] [place] [phone] Amy Han PA-C [address] [place] [address] [place] [address] 10/15/2024 8:40 AM EDT Office Visit Rheumatology [address] [place] [phone] Samy Russo MD [address] [facility] [address] Health Maintenance Due Date Last Done Comments [...] filedocumented as of this encounter Care Teams Freight Flagman Relationship Specialty Start Date End Date Edel Clay MD [address] [place] [address] [place] [address] PCP - General Family Medicine 03/03/17 documented as of this encounter
--- OUTSIDE RECORDS SUMMARY | 2024-06-12 02:43 | External Medical Summary | Summary of Care ---
Author Name Unknown Organization [facility] Address [address] [place] [address] Phone [phone] Care Team Providers Care Warehousing Technician Name Role Phone Edel Clay MD Primary Care Provide r Reason for Visit * Reason Onset Date Comments Scheduling 12/17/2023 Encounter Details Date Type Department Care Team (Late st Contact Info) Description 12/17/2023 Telephone Hematology/Oncology, [facility] 400 [place], [place] [phone] Monica Ward MD [address] [place] [address] Scheduling Allergies Active Allergy Reactions [...] Thyroiditis 07/18/2008 06/01/2019 Overview: thyroglobulin antibody >3000 [id number] 08/19/200608/10 Overview: Renamed Per Clinical Trials Billing Project. Pt is a participant in the [facility] (Consortium of Rheumatology Researchers of [place]) national data collection study. For further information please call Dr Temo Castaneda or Kim Ríos, RN, CCRC at [phone] [facility] RESEARCH OTHER*[id number] 08/19/2006 11/06/2009 Overview: Renamed Per Clinical Trials Billing Project. Pt is a participant in the [facility] (Consortium of Rheumatology Researchers of [place] [facility]) national data collection study. For further information please call Dr Temo Castaneda or Kim Ríos, RN, CCRC at [phone] Arthritis, rheumatoid 07/01/20062016 Abnormal blood chemistry 05/02/2006 [...] that she received a call from the [facility]. They told her that they can not [...] She stated that she can get in [place] tomorrow but that is a 2 hour away Hospital. She stated that shedoesn't even have a full day of work. She is crying. * Telephone Encounter - Adina Abdul OSA - 12/17/2023 12:58 PM EDT Patient was called to schedule the Mediport Insertion for here at [facility] and she was offered 12/23 or 12/25 that was our first opening since we are so busy and she is to start her chemo on 12/22 so I suggested she reach out to [facility] they might have sooner so she was transferred and they are to get her in on 12/17 at [facility] for the Port placement. documented in this encounter Plan of Treatment Upcoming Encounters Date Type Department Care Team (Late st Contact Info) Description 12/18/2023 1:00 PM EDT Hospital Encounter Interventional Radiology [facility], [place] 1st Floor [address] [place] [address] 12/19/2023 3:00 PM EDT Nurse Only Hematology/Oncology [place] [address] [place] [address] [place], Nurse Hem Onc [address] [place] [address] 01/15/2024 2:30 PM EDT PulmDiagnostic Pulmonary Function Lab, [facility] 132 [facility] [place] [address] West, Pft 132 [facility] [place] [address] 01/15/2024 3:40 PM EDT Office Visit Pulmonary Medicine, [facility] 132 [facility] [place] [address] Eloy Pond MD [address] [facility] [address] 02/06/2024 2:20 PM EDT Office Visit Family Medicine [address] [place] [phone] Amy Han, PA-C [address] [place] [address] [place] [address] 10/15/2024 8:40 AM EDT Office Visit Rheumatology [address] [place] [phone] Samy Russo MD [facility]0 [facility] [place] [address] Health Maintenance Due Date Last Done Comments [...] filedocumented as of this encounter Care Teams Warehousing Technician Relationship Specialty Start Date End Date Edel Clay MD [address] [place] [address] [place] [phone] PCP - General Family Medicine 03/03/17 documented as of this encounter
--- OUTSIDE RECORDS SUMMARY | 2024-06-12 02:43 | External Medical Summary | Summary of Care ---
Author Name Unknown Organization [facility] Address [address] [place] [address] Phone [phone] Care Team Providers Care Retail Performance Specialist Name Role Phone Edel Clay MD Primary Care Provide r Reason for Visit * Reason Onset Date Comments Scheduling 12/17/2023 Encounter Details Date Type Department Care Team (Late st Contact Info) Description 12/17/2023 Telephone Hematology/Oncology, [facility] [address] [place], [place] [phone] Monica Ward MD [address] [place] [address] Scheduling Allergies Active Allergy Reactions [...] Thyroiditis 07/18/2008 06/01/2019 Overview: thyroglobulin antibody >3000 [id number] 08/19/200608/10 Overview: Renamed Per Clinical Trials Billing Project. Pt is a participant in the [facility] (Consortium of Rheumatology Researchers of [place]) national data collection study. For further information please call Dr Temo Castaneda or Kim Ríos, RN, CCRC at [phone] [facility] RESEARCH OTHER*[id number] 08/19/2006 11/06/2009 Overview: Renamed Per Clinical Trials Billing Project. Pt is a participant in the [facility] (Consortium of Rheumatology Researchers of [facility]) national data collection study. For further information please call Dr Temo Castaneda or Kim Ríos, RN, CCRC at [phone] Arthritis, rheumatoid 07/01/20062016 Abnormal blood chemistry 05/02/2006 [...] states that she accepted an appt at [facility] for tomorrow; however, this is much further for herthan [facility] and she is trying to figure out how she would even get there. Would like to cancel this appt and reschedule at [facility]. She has the phone numbers so will call and reschedule this. * Telephone Encounter - Prem Toro OSA - 12/17/2023 1:09 PM EDT Monica Ward MD Patient is upset due to the fact that she received a call from the [facility]. They told her that they can not [...] She stated that she can get in [facility] tomorrow but that is a 2 hour away Hospital. She stated that shedoesn't even have a full day of work. She is crying. * Telephone Encounter - Adina Abdul, TAVON - 12/17/2023 12:58 PM EDT Patient was called to schedule the Mediport Insertion for here at [facility] and she was offered 8/14 or 12/25 that was our first opening since we are so busy and she is to start her chemo on 12/22 so I suggested she reach out to [facility] they might have sooner so she was transferred and they are to get her in on 12/17 at [facility] for the Port placement. documented in this encounter Plan of Treatment Upcoming Encounters Date Type Department Care Team (Late st Contact Info) Description 12/18/2023 1:00 PM EDT Hospital Encounter Interventional Radiology [facility], [facility] 1st Floor [address] [facility] [address] 12/19/2023 3:00 PM EDT Nurse Only Hematology/Oncology [facility] [address] [place] [phone] [place], Nurse Hem Onc [facility] [address] [place] [address] 01/15/2024 2:30 PM EDT PulmDiagnostic Pulmonary Function Lab, [facility] 132 [facility] [place] [address] [address], [address]ft 132 [facility] [place] [address] 01/15/2024 3:40 PM EDT Office Visit Pulmonary Medicine, [facility] 132 [facility] [place] [address] Eloy Pond MD [address] [place] [address] 02/06/2024 2:20 PM EDT Office Visit Family Medicine [facility] [address] [place] [phone] Amy Han PA-C [address] [place] [address] [place] [address] 10/15/2024 8:40 AM EDT Office Visit Rheumatology [address] [place] [phone] Samy Russo MD [address] [facility] [place] [address] Health Maintenance Due Date Last Done Comments [...] filedocumented as of this encounter Care Teams Retail Performance Specialist Relationship Specialty Start Date End Date Edel Clay MD [address] [place] [address] [place] [address] PCP - General Family Medicine 03/03/17 documented as of this encounter
--- OUTSIDE RECORDS SUMMARY | 2024-06-12 02:43 | External Medical Summary | Summary of Care ---
Author Name Unknown Organization [facility] Address [address] [place] [address] Phone [phone] Care Team Providers Care President Trust Company Name Role Phone Edel Clay MD Primary Care Provide r Reason for Visit * Reason Onset Date Comments Precert Future 12/16/2023 Tecentriq, carbo platin, etoposide Encounter Details Date Type Department Care Team (Late st Contact Info) Description 12/16/2023 Telephone Hematology/Oncology Treatment, Telephone [address] [place] [address] Monica Ward MD [address] [place] [phone] Precert Future (Tecentriq, carboplatin, et... Allergies [...] Thyroiditis 07/18/2008 06/01/2019 Overview: thyroglobulin antibody >3000 [id number] 08/19/200608/10 Overview: Renamed Per Clinical Trials Billing Project. Pt is a participant in the [facility] (Consortium of Rheumatology Researchers of [place]) national data collection study. For further information please call Dr Temo Castaneda or Kim Ríos, RN, CCRC at [phone] [facility] RESEARCH OTHER*[id number] 08/19/2006 11/06/2009 Overview: Renamed Per Clinical Trials Billing Project. Pt is a participant in the [facility] (Consortium of Rheumatology Researchers of [place]) national data collection study. For further information please call Dr Temo Castaneda or Kim Ríos, RN, CCRC at [phone] Arthritis, rheumatoid 07/01/20062016 Abnormal blood chemistry 05/02/2006 [...] Order received for tecentriq, carbo, etoposide, zometa. [place] plan built and routed for signature. Waiting [...] 12/19/2023 3:00 PM EDT Nurse Only Hematology/Oncology [facility] [address] [place] [phone] [place] Nurse Hem Onc [facility] [address] [place] [address] 01/15/2024 2:30 PM EDT PulmDiagnostic Pulmonary Function Lab, [facility] 132 [place] [place] [address] [address], [address] 132 [facility] [place] [address] 01/15/2024 3:40 PM EDT Office Visit Pulmonary Medicine, [facility] 132 [facility] [place] [address] Eloy Pond MD [address] [facility] [address] 02/06/2024 2:20 PM EDT Office Visit Family Medicine [address] [place] [phone] Amy Han PA-C [address] [place] [address] [place] [address] 10/15/2024 8:40 AM EDT Office Visit Rheumatology [address] [place] [phone] Samy Russo MD 9[address] [facility] TelephoneTAMRA [address] Scheduled Orders Name Type Priority Associated Diagnoses [...] marrow documented in this encounter Care Teams President Trust Company Relationship Specialty Start Date End Date Edel Clay MD [address] [place] [address] [place] [address] PCP - General Family Medicine 03/03/17 documented as of this encounter
--- OUTSIDE RECORDS SUMMARY | 2024-06-12 02:43 | External Medical Summary | Summary of Care ---
Author Name Unknown Organization [facility] Address [address] [place] [address] Phone [phone] Care Team Providers Care Electronic Warfare Operator Name Role Phone Edel Clay MD Primary Care Provide r Reason for Visit * Reason Onset Date Comments Precert Future 12/16/2023 Tecentriq, carbo platin, etoposide Encounter Details Date Type Department Care Team (Late st Contact Info) Description 12/16/2023 Telephone Hematology/Oncology Treatment, [place] [address] [place] [address] Monica Ward MD [address] [place] [phone] Precert Future (Tecentriq, carboplatin, et... Allergies Active Allergy Reactions Criticality Noted Date Comments Clindamycin Hives 08/26/2014 Codeine 10/25/2011 "Stupor", drowsy Other Allergy (See Comments) 024 Perfumes, hairspray, candles, etc. Sinus infections, headaches, very sensitive. Penicillins 01/30/2006 Hives ans swelling Sulfa Antibiotics 06/29/2010 Sick to her stomach documented as of this encounter (statuses as of 12/16/2023) Medications Medication Sig Dispensed Refills Start Date [...] as of this encounter (statuses as of 12/16/2023) Active Problems Problem Noted Date Diagnosed Date [...] as of this encounter (statuses as of 12/16/2023) Resolved Problems Problem Noted Date Diagnosed Date [...] Thyroiditis 07/18/2008 06/01/2019 Overview: thyroglobulin antibody >3000 [id number] 08/19/200608/10 Overview: Renamed Per Clinical Trials Billing Project. Pt is a participant in the [facility] (Consortium of Rheumatology Researchers of [place]) national data collection study. For further information please call Dr Temo Castaneda or Kim Ríos, RN, CCRC at [phone] [facility] RESEARCH OTHER*[id number] 08/19/2006 11/06/2009 Overview: Renamed Per Clinical Trials Billing Project. Pt is a participant in the [facility] (Consortium of Rheumatology Researchers of [place]) national data collection study. For further information please call Dr Temo Castaneda or Kim Ríos, RN, CCRC at [phone] Arthritis, rheumatoid 07/01/20062016 Abnormal blood chemistry 05/02/2006 Overview: positive rheumatoid factor. Metabolic syndrome 04/29/2006 0 Overview: insulin level 16 Mixed dyslipidemia 02/06/2006 9 Overview: Per Lipid Taxonomy. chol 192, hdl 26, trig 403 Allergic rhinitis due to pollen 01/30/2006 03/03/2017 Obesity, BMI not known 08/07 Overview: Per Obesity Taxonomy Denture irritation 0 documented as of this encounter (statuses as of 12/16/2023) Immunizations Name Administration Dates Next Due COVID-19 [...] Order received for tecentriq, carbo, etoposide, zometa. [place] plan built and routed for signature. Waiting [...] 12/19/2023 3:00 PM EDT Nurse Only Hematology/Oncology [facility] [address] [place] [phone] [place], Nurse Hem Onc [facility] [address] [place] [address] 01/15/2024 2:30 PM EDT PulmDiagnostic Pulmonary Function Lab, [facility] [address] [place] [address] [address], [address] [place] [address] 01/15/2024 3:40 PM EDT Office Visit Pulmonary Medicine, [facility] [address] [place] [address] Eloy Pond MD [address] [place] [address] 02/06/2024 2:20 PM EDT Office Visit Family Medicine [address] [place] [phone] Amy Han PA-C [address] [place] [address] [place] [address] 10/15/2024 8:40 AM EDT Office Visit Rheumatology [address] [place] [phone] Samy Russo MD [facility] [place] [address] Scheduled Orders Name Type Priority Associated Diagnoses [...] marrow documented in this encounter Care Teams Electronic Warfare Operator Relationship Specialty Start Date End Date Edel Clay MD [address] [place] [address] [place] [address] PCP - General Family Medicine 03/03/17 documented as of this encounter
--- OUTSIDE RECORDS SUMMARY | 2024-06-12 02:43 | External Medical Summary | Summary of Care ---
Author Name Unknown Organization [facility] Address [address] [place] [address] Phone [phone] Care Team Providers Care Contact Center Director Name Role Phone Edel Clay MD Primary Care Provide r Reason for Visit * Reason Onset Date Comments Precert Future 12/16/2023 Tecentriq, carbo platin, etoposide ac Encounter Details Date Type Department Care Team (Late st Contact Info) Description 12/16/2023 Telephone Hematology/Oncology Treatment, [place] [address] [place] [address] Monica Ward MD [address] [place] [phone] Precert Future (Tecentriq, carboplatin, et... Allergies [...] Thyroiditis 07/18/2008 06/01/2019 Overview: thyroglobulin antibody >3000 [id number] 08/19/200608/10 Overview: Renamed Per Clinical Trials Billing Project. Pt is a participant in the [facility] (Consortium of Rheumatology Researchers of [place]) national data collection study. For further information please call Dr Temo Castaneda or Kim Ríos, RN, CCRC at [phone] [facility] RESEARCH OTHER*[id number] 08/19/2006 11/06/2009 Overview: Renamed Per Clinical Trials Billing Project. Pt is a participant in the [facility] (Consortium of Rheumatology Researchers of [place]) national data collection study. For further information please call Dr Temo Castaneda or Kim Ríos, RN, CCRC at [phone] Arthritis, rheumatoid 07/01/20062016 Abnormal blood chemistry 05/02/2006 [...] encounter Miscellaneous Notes * Telephone Encounter - Hortensia Faust OSA [...] Order received for tecentriq, carbo, etoposide, zometa. [place] plan built and routed for signature. Waiting [...] Interventional Radiology [facility], [facility] 1st Floor [address] [place] [address] 12/19/2023 3:00 PM EDT Nurse Only Hematology/Oncology [facility] [address] [place] [address] [place], Nurse Hem Onc [facility] [address] [place] [address] 01/15/2024 2:30 PM EDT PulmDiagnostic Pulmonary Function Lab, [facility] 132 [facility] [place] [address] [address], [address] 132 [facility] [place] [address] 01/15/2024 3:40 PM EDT Office Visit Pulmonary Medicine, [facility] [address] [place] [address] Eloy Pond MD [address] [place] [address] 02/06/2024 2:20 PM EDT Office Visit Family Medicine [address] [place] [phone] Amy Han PA-C [address] [place] [address] [place] [address] 10/15/2024 8:40 AM EDT Office Visit Rheumatology [address] [place] [phone] Samy Russo MD [facility] [address] Scheduled Orders Name Type Priority Associated Diagnoses [...] marrow documented in this encounter Care Teams Contact Center Director Relationship Specialty Start Date End Date Edel Clay MD [address] [place] [address] [place] [phone] PCP - General Family Medicine 03/03/17 documented as of this encounter
--- OUTSIDE RECORDS SUMMARY | 2024-06-12 02:43 | External Medical Summary | Summary of Care ---
Author Name Unknown Organization [facility] Address [address] [place] [address] Phone [phone] Care Team Providers Care Air Drier Name Role Phone Edel Clay MD Primary Care Provide r Reason for Visit * Reason Onset Date Comments Precert Future 12/16/2023 Tecentriq, carbo platin, etoposide ac Encounter Details Date Type Department Care Team (Late st Contact Info) Description 12/16/2023 Telephone Hematology/Oncology Treatment, [place] [address] [place] [address] Monica Ward MD [address] [place] [phone] Precert Future (Tecentriq, carboplatin, et... Allergies [...] Thyroiditis 07/18/2008 06/01/2019 Overview: thyroglobulin antibody >3000 [id number] 08/19/200608/10 Overview: Renamed Per Clinical Trials Billing Project. Pt is a participant in the [facility] (Consortium of Rheumatology Researchers of [place]) national data collection study. For further information please call Dr Temo Castaneda or Kim Ríos, RN, CCRC at [phone] [facility] RESEARCH OTHER*[id number] 08/19/2006 11/06/2009 Overview: Renamed Per Clinical Trials Billing Project. Pt is a participant in the [facility] (Consortium of Rheumatology Researchers of [place]) national data collection study. For further information please call Dr Temo Castaneda or Kim Ríos, RN, CCRC at [phone] Arthritis, rheumatoid 07/01/20062016 Abnormal blood chemistry 05/02/2006 [...] Order received for tecentriq, carbo, etoposide, zometa. [place] plan built and routed for signature. Waiting [...] 1:00 PM EDT Hospital Encounter Interventional Radiology [facility], [facility] 1st Floor [address] [facility] [place] [address] 12/19/2023 3:00 PM EDT Nurse Only Hematology/Oncology [facility] [address] [place] [phone] [place], Nurse Hem Onc [facility] [address] [place] [address] 01/15/2024 2:30 PM EDT PulmDiagnostic Pulmonary Function Lab, [facility] [address] [place] [address] [address], [address] [place] [address] 01/15/2024 3:40 PM EDT Office Visit Pulmonary Medicine, [facility] [address] [place] [address] Eloy Pond MD [address] [place] [address] 02/06/2024 2:20 PM EDT Office Visit Family Medicine [address] [place] [phone] Amy Han PA-C [address] [place] [address] [place] [address] 10/15/2024 8:40 AM EDT Office Visit Rheumatology [address] [place] [phone] Samy Russo MD [address] [facility] [place] [address] Scheduled Orders Name Type Priority Associated Diagnoses [...] marrow documented in this encounter Care Teams Air Drier Relationship Specialty Start Date End Date Edel Clay MD [address] [place] [address] [place] [address] PCP - General Family Medicine 03/03/17 documented as of this encounter
--- OUTSIDE RECORDS SUMMARY | 2024-06-12 02:44 | External Medical Summary | Summary of Care ---
Author Name Unknown Organization [facility] Address [address] [place] [address] Phone [phone] Care Team Providers Care Salvage Engineering Technician Name Role Phone Edel Clay MD Primary Care Provide r Reason for Visit * Reason Comments eRx-Medication Refill Encounter Details Date Type Department Care Team (Late st Contact Info) Description 12/15/2023 Refill Rheumatology [address] [place] [phone] Samy Russo MD [address] [facility] [place] [address] Rheumatoid arthritis involving multiple sites with positive [...] Active Problems Problem Noted Date Diagnosed Date Small cell lung cancer, right 12/10/2023 Overview: [...] Thyroiditis 07/18/2008 06/01/2019 Overview: thyroglobulin antibody >3000 [id number] 08/19/200608/10 Overview: Renamed Per Clinical Trials Billing Project. Pt is a participant in the [facility] (Consortium of Rheumatology Researchers of [facility]) national data collection study. For further information please call Dr Temo Castaneda or Kim Ríos, RN, CCRC at [phone] [facility] RESEARCH OTHER*[id number] 08/19/2006 11/06/2009 Overview: Renamed Per Clinical Trials Billing Project. Pt is a participant in the [facility] (Consortium of Rheumatology Researchers of [facility]) national data collection study. For further information please call Dr Temo Castaneda or Kim Ríos, RN, CCRC at [phone] Arthritis, rheumatoid 07/01/20062016 Abnormal blood chemistry 05/02/2006 [...] encounter Miscellaneous Notes * Telephone Encounter - Yoselin Quintanilla formerly [facility] - 12/16/2023 8:18 AM EDTRefused Prescriptions: Disp Refills Orencia 125 MG/ML Subcutaneous Solution Pr*4 mL 11 Sig: INJECT 125 MG (1 SYRINGE) UNDER THE SKIN ONCE A WEEKRefused By: YOSELIN QUINTANILLA for Refusal: Duplicate Request documented in this encounter Plan of Treatment Upcoming Encounters Date Type Department Care Team (Late st Contact Info) Description 01/15/2024 2:30 PM EDT PulmDiagnostic Pulmonary Function Lab, [facility] 132 [facility] [place] [address] [address], [address] 132 [facility] [place] [address] 01/15/2024 3:40 PM EDT Office Visit Pulmonary Medicine, [address] [place] [address] Eloy Pond MD [address] [facility] [place] [address] 02/06/2024 2:20 PM EDT Office Visit Family Medicine [address] [place] [phone] Amy Han PA-C [address] [place] [address] [place] [address] 10/15/2024 8:40 AM EDT Office Visit Rheumatology [address] [place] [phone] Samy Russo MD [address] [facility] [place], [place] [address] Health Maintenance Due Date Last Done Comments [...] (HCC) documented in this encounter Care Teams Salvage Engineering Technician Relationship Specialty Start Date End Date Edel Clay MD [address] [place] [address] [place] [address] PCP - General Family Medicine 03/03/17 documented as of this encounter
--- OUTSIDE RECORDS SUMMARY | 2024-06-12 02:44 | External Medical Summary | Summary of Care ---
Author Name Unknown Organization [facility] Address [address] [place] [address] Phone [phone] Care Team Providers Care Senior Web Developer Name Role Phone Edel Clay MD Primary Care Provide r Reason for Visit * Reason Onset Date Comments Precert Future 12/16/2023 Tecentriq, carbo platin, etoposide Encounter Details Date Type Department Care Team (Late st Contact Info) Description 12/16/2023 Telephone Hematology/Oncology Treatment, [place] [address] [place] [address] Monica Ward MD [address] [place] [phone] Precert Future (Tecentriq, carboplatin, et... Allergies [...] Thyroiditis 07/18/2008 06/01/2019 Overview: thyroglobulin antibody >3000 [id number] 08/19/200608/10 Overview: Renamed Per Clinical Trials Billing Project. Pt is a participant in the [facility] (Consortium of Rheumatology Researchers of [place]) national data collection study. For further information please call Dr Temo Castaneda or Kim Ríos, RN, CCRC at [phone] [facility] RESEARCH OTHER*[id number] 08/19/2006 11/06/2009 Overview: Renamed Per Clinical Trials Billing Project. Pt is a participant in the [facility] (Consortium of Rheumatology Researchers of [place]) national data collection study. For further information please call Dr Temo Castaneda or Kim Ríos, RN, CCRC at [phone] Arthritis, rheumatoid 07/01/20062016 Abnormal blood chemistry 05/02/2006 [...] Order received for tecentriq, carbo, etoposide, zometa. [place] plan built and routed for signature. Waiting [...] 12/19/2023 3:00 PM EDT Nurse Only Hematology/Oncology [facility] [address] [place] [phone] [place], Nurse Hem Onc [facility] [address] [place] [address] 01/15/2024 2:30 PM EDT PulmDiagnostic Pulmonary Function Lab, [facility] 132 [facility] [place] [address] West, [address] 132 [facility] [place] [address] 01/15/2024 3:40 PM EDT Office Visit Pulmonary Medicine, [facility] [address] [place] [address] Eloy Pond MD [address] [place] [address] 02/06/2024 2:20 PM EDT Office Visit Family Medicine [address] [place] [phone] Amy Han PA-C [address] [place] [address] [place] [address] 10/15/2024 8:40 AM EDT Office Visit Rheumatology [address] [place] [phone] Samy Russo MD [facility] [address] Scheduled Orders Name Type Priority Associated Diagnoses [...] marrow documented in this encounter Care Teams Senior Web Developer Relationship Specialty Start Date End Date Edel Clay MD [address] [place] [address] [place] [phone] PCP - General Family Medicine 03/03/17 documented as of this encounter
--- OUTSIDE RECORDS SUMMARY | 2024-06-12 02:44 | External Medical Summary | Summary of Care ---
Author Name Unknown Organization [facility] Address [address] [place] [address] Phone [phone] Care Team Providers Care Natural Gas Technician Name Role Phone Edel Clay MD Primary Care Provide r Encounter Details Date Type Department Care Team (Late st Contact Info) Description 12/16/2023 Telephone Hematology/Oncology [facility] [place] [address] [place] [address] Monica Ward MD [address] [place] [address] Allergies Active Allergy Reactions Criticality Noted [...] Thyroiditis 07/18/2008 06/01/2019 Overview: thyroglobulin antibody >3000 [id number] 08/19/200608/10 Overview: Renamed Per Clinical Trials Billing Project. Pt is a participant in the CORRONA (Consortium of Rheumatology Researchers of [place]) national data collection study. For further information please call Dr Temo Castaneda or Kim Ríos, RN, CCRC at [phone] [facility] RESEARCH OTHER*[id number] 08/19/2006 11/06/2009 Overview: Renamed Per Clinical Trials Billing Project. Pt is a participant in the CORRO (Consortium of Rheumatology Researchers of [facility]) national data collection study. For further information please call Dr Temo Castaneda or Kim Ríos, RN, CCRC at [phone] Arthritis, rheumatoid 07/01/20062016 Abnormal blood chemistry 05/02/2006 [...] Encounter - Mar Murrell OSA - 12/16/2023 11:17 AM EDT IR VENOUS ACCESS MEDIPORT [IRMEDIPORT] (Order [id number]) documented in this encounter Plan of Treatment Upcoming Encounters Date Type Department Care Team (Late st Contact Info) Description 01/15/2024 2:30 PM EDT PulmDiagnostic Pulmonary Function Lab, [facility] [address] [facility] [place] [address] [address], [address] [place] [address] 01/15/2024 3:40 PM EDT Office Visit Pulmonary Medicine, [address] [place] [address] Eloy Pond MD [address] [facility] [place] [address] 02/06/2024 2:20 PM EDT Office Visit Family Medicine [address] [place] [phone] Amy Han, PA-C [address] [place] [address] [place] [address] 10/15/2024 8:40 AM EDT Office Visit Rheumatology [address] [place] [phone] Samy Russo MD [facility] [place] [address] Health Maintenance Due Date Last Done Comments [...] filedocumented as of this encounter Care Teams Natural Gas Technician Relationship Specialty Start Date End Date Edel Clay MD [address] [place] [address] [place] [address] PCP - General Family Medicine 03/03/17 documented as of this encounter
--- OUTSIDE RECORDS SUMMARY | 2024-06-12 02:44 | External Medical Summary | Summary of Care ---
Author Name Unknown Organization [facility] Address [address] [place] [address] Phone [phone] Care Team Providers Care Wind Turbine Electrical Engineer Name Role Phone Edel Clay MD Primary Care Provide r Reason for Referral * Precert (Within 24 hrs (call dept; emergent)) - Authorized Specialty Diagnoses / Procedures Referred By Contac t Referred To Contact Radiology Diagnoses Small cell lung cancer, right (HCC) Metastatic adenocarcinoma to liver (HCC) Procedures [facility] Monica Ward MD [address] [place], [place] [address] [place] [address] Referral ID Status Reason Start Date Expiration Date V isits Requested Visits Authorized [id number] Authorized 12/16/2023 999 999 Reason for Visit * Reason Comments 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 * Evaluate & Treat - Unlimited Visits (Within 3 days (urgent)) - Authorized Specialty Diagnoses / Procedures Referred By Contac t Referred To Contact Hematology/Oncology / Hematology Oncology Diagnoses Mass of right lung Small cell lung cancer (HCC) Eloy Pond MD [address] [place] [address] Referral ID Status Reason Start Date Expiration Date Visits Requested Visits Authorized [id number] Authorized Specialty Services Required 12/10/2023 999 999 Encounter Details Date Type Department Care Team (Late st Contact Info) Description 12/12/2023 3:00 PM EDT Office Visit Hematology/Oncology [facility] [place] [address] [facility] [place] [address] Monica Ward MD [address] [place] [address] [place] [phone] Small cell lung cancer, right (HCC)*; [...] Thyroiditis 07/18/2008 06/01/2019 Overview: thyroglobulin antibody >3000 [id number] 08/19/200608/10 Overview: Renamed Per Clinical Trials Billing Project. Pt is a participant in the CORRO (Consortium of Rheumatology Researchers of [facility]) national data collection study. For further information please call Dr Temo Castaneda or Kim Ríos, RN, CCRC at [phone] [facility] RESEARCH OTHER*[id number] 08/19/2006 11/06/2009 Overview: Renamed Per Clinical Trials Billing Project. Pt is a participant in the CORRONA (Consortium of Rheumatology Researchers of [place]) national data collection study. For further information please call Dr Temo Castaneda or Kim Ríos, RN, CCRC at [phone] Arthritis, rheumatoid 07/01/20062016 Abnormal blood chemistry 05/02/2006 [...] Sign Reading Time Taken Comments Blood Pressure 147/82 12/12/2023 3:10 PM EDT Pulse 87 12/12/2023 3:10 PM EDT Temperature 36.8 C (98.3 F) 12/12/2023 3:10 PM ED T Respiratory Rate - - Oxygen Saturation 97% 12/12/2023 3:10 PM EDT Inhaled Oxygen Concentration - - Weight 83.7 kg (184 lb 9.6 oz) 12/12/2023 3:10 P M EDT Height 160 cm (5' 3") 12/12/2023 3:10 PM EDT Body Mass Index 32.7 12/12/2023 3:10 PM EDT documented in this encounter Progress Notes * Monica Ward MD - 12/12/2023 3:42 PM EDT Images from the original note were not included. Subjective Alfredo Torrez is a 58 year old female. 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 Multiple liver lesions, concerning for metastases, hotel services sales representative lesion in the posterior right hepatic lobe measures 3.7 x 2.6 cm. 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 Abnormal CT scan. HPI: Nursing Notes: Demetrice Arambula LPN 11/27/23 0710 Signed Chief Complaint Patient presents with NEW PATIENT Here new pulm. Abnormal CT scan. Interm History/Respiratory Symptoms Cough: no. No phlegm. Hemoptysis: no Sinus Symptoms: drainage Hospitalizations: no ED Trips: no Triggers: candle warmer,scented products. Nocturnal: sleep with head elevated CPAP/BiPAP/O2: no DME Supplier: no Flu Vaccine: 2022 Pneumovax: 2011 Prevnar: 2020 COVID 19: x5. MMRC Dyspnea Scale = 0 (I only get breathless with strenuous exercise) Objective Filed Vitals: 11/27/23 0705 11/27/23 0706 BP: 120/80 Resp: 16 Temp: 36.9 C (98.4 F) TempSrc: Tympanic SpO2: 99% 99% Weight: 84.8 kg (187 lb) Height: 1.6 m (5' 3") Exam: Const: No signs of acute distress [...] is normal. Tests reviewed with the patient: Imaging results CT CHEST WO CONTRAST Result Date: 11/23/2023 [...] Multiple liver lesions, concerning for metastases. A hotel services sales representative lesion in the posterior right hepatic lobe measures 3.7 x 2.6 cm. A follow-up CT abdomen and pelvis is suggested for further evaluation. Available Radiologic data was reviewed by me in PACS. The images were shown to the patient and findings were discussed with the patient. HOME MEDICATIONS: Medication List Methotrexate Sodium 2.5 MG Oral Tablet Multivitamins Oral Capsule Triamcinolone Acetonide 55 MCG/ACT Nasal Aerosol (Nasacort Allergy 24HR) Magic Swizzle (Djdzshqwm-Oekudkhj-Iudpqi) oral solution Albuterol Sulfate HFA 108 (90 Base) MCG/ACT Inhalation Aerosol Solution Levothyroxine Sodium 100 MCG Oral Tablet (Levoxyl) Azelastine HCl 137 MCG/SPRAY Nasal Solution Orencia 125 MG/ML Subcutaneous Solution Prefilled Syringe (Abatacept) Folic Acid 1 MG Oral Tablet OMEGA-3 FATTY ACIDS 1000 MG PO CAPS ROS: No reported history of Hemoptysis, Hematemesis, Melena No reported history of Dysuria, Hematuria, Flank Pain No reported history of chronic headache, seizures No reported history of Fall or trauma . No reported history of recent change in weight or appetite. Past Medical History Past Medical History: Diagnosis Date Abnormal blood [...] sinusitis 09/24/2016 Tobacco use disorder Past Surgical History Past Surgical History: Procedure Laterality Date BREAST LESION,OTHER,EXCISION Left BENIGN MAMMOGRAM SCREENING-BILATERAL 09/09/2007 heterogeneously dense, category 0 REMOVE GALLBLADDER 01/03/2012 Dr Gomez- [facility] - BREAST(S) 09/23/2007 left breast category 4, FNA suggested US HEAD AND NECK 07/21/2008 mildly enlarged right thyroid, consistent with multinodular goiter US HEAD AND NECK 06/30/2012 asymmetric thyromegaly Social History Socioeconomic History Marital status: Spouse name: Margarito Number of children: 1 Occupational History Employer: [employer] Tobacco Use Smoking status: Every Day Current [...] Year: Never true Social Connections Family History Family History Problem Relation Name Age of Onset Diabetes Mother Stroke Mother Allergies Mother chronic rhinitis Other (stroke) Mother Heart Disorder Father Heart Disorder Aunt (Unspecified) Endocrine Disorder Grandmother (Maternal) Thyroid Disorder Grandmother (Maternal) Heart Disorder Grandmother (Paternal) Heart Disorder Grandfather (Paternal) Breast Cancer No significant family history Allergies Review of patient's allergies indicates: Allergen Reactions Clindamycin Hives Codeine "Stupor", drowsy Pcn [Penicillins] Hives ans swelling Sulfa Antibiotics Sick to her stomach POU2F3 variant the tumor cells show severe crushed artifact. Morphologically it [...] The MIB-1 proliferation index is approximately 90%. 12/08/2023 PET scan shows bilateral palatine and [...] throughout the liver with largest lesion in thesegment 3 of the left lobe of the liver has maximum SUV of 12.4. No focal adrenal nodules or significant abdominopelvic lymphadenopathy. Multiple hypermetabolic lytic lesions are seen involving bilateral iliac bones, right acetabulum and L4 vertebra. PMH: Patient Active Problem List Diagnosis Acquired [...] Prediabetes Small cell lung cancer, right (HCC) Current Outpatient Medications Medication Sig Dispense Refill [...] breakfast or other meds) 90 Tablet 3 Albuterol Sulfate HFA 108 (90 Base) MCG/ACT Inhalation Aerosol Solution Inhale 2 Puffs by mouth every 4 hours as needed for Cough, Shortness of Breath or Wheezing (and prior exercise). (Patient not taking: Reported on 12/04/2023) 18 g 3 Magic Swizzle (Cjrqiumwt-Xbzwbahu-Ndpuwm) oral solution Swish and spit 15 mL [...] for Shortness of Breath. 18 g 11 Current Facility-Administered Medications Medication Dose Route [...] fever and unexpected weight change. HENT: Negative. Respiratory: Positive for cough and shortness of breath. Objective BP 147/82 (BP Site: Left Arm, BP Position: Sitting, BP Cuff Size: Regular) | Pulse 87 | Temp 36.8 C (98.3 F) (Tympanic) | Ht 1.6 m (5' 3") | Wt 83.7 kg (184 lb 9.6 oz) | LMP 09/07/2015 (Approximate) | SpO2 97% | BMI 32.70 kg/m | BSA 1.93 m Physical Exam Constitutional: Appearance: Normal appearance. [...] Content: Thought content normal. Judgment: Judgment normal. Radiology: 09/12/2023: Bilateral mammogram: Dense bilateral breasts [...] axis. Multiple liver lesions, concerning for metastases, hotel services sales representative lesion in the posterior right [...] approximately 90%. 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 PLAN OF CARE DISCUSSED WITH PATIENT ON 12/12/2023 : Labs today MediPort placement chemotherapy : Chemotherapy carboplatin given on on day 1, etoposide days 1-3 Zometa/S denosumab for treatment of bone lesions Small cell lung cancer, right (HCC) (Primary) - CBC WITH WBC DIFFERENTIAL; Future; Expected date: 12/16/2023 - COMPREHENSIVE METABOLIC PANEL; Future; Expected date: 12/16/2023 - PT INR; Future; Expected date: 12/16/2023 - LD; Future; Expected date: 12/16/2023 - CEA; Future; Expected date: 12/16/2023 - IR VENOUS ACCESS MEDIPORT; Future; Expected date: 12/16/2023 - NEW ONCOLOGY TREATMENT PLAN - NEW SUPPORTIVE CARE PLAN Metastatic adenocarcinoma to liver (HCC) - CBC WITH WBC DIFFERENTIAL; Future; Expected date: 12/16/2023 - COMPREHENSIVE METABOLIC PANEL; Future; Expected date: 12/16/2023 - PT INR; Future; Expected date: 12/16/2023 - LD; Future; Expected date: 12/16/2023 - CEA; Future; Expected date: 12/16/2023 - IR VENOUS ACCESS MEDIPORT; Future; Expected date: 12/16/2023 - NEW ONCOLOGY TREATMENT PLAN - NEW SUPPORTIVE CARE PLAN Cancer, metastatic to bone (HCC) - NEW ONCOLOGY TREATMENT PLAN Monica Ward MD documented in this encounter Nursing Notes * Cathy Kang MED ASSIST - 12/12/2023 3:11 PM EDT Patient identifed by name and [...] it for you? ALREADY ACTIVE Filed Vitals: 12/12/23 1510 BP: 147/82 Pulse: 87 Temp: 36.8 C (98.3 F) TempSrc: Tympanic SpO2: 97% Weight: 83.7 kg (184 lb 9.6 oz) Height: 1.6 m (5' 3") Patient was instructed to not get up [...] PM EDT PulmDiagnostic Pulmonary Function Lab, [facility] [address] [place] [address] [address], [address] [place] [address] 01/15/2024 3:40 PM EDT Office Visit Pulmonary Medicine, [facility] [address] [place] [address] Eloy Pond MD [address] [place] [address] 02/06/2024 2:20 PM EDT Office Visit Family Medicine [address] [place] [phone] Amy Han PA-Cassandra [address] [place] [address] [place] [address] 10/15/2024 8:40 AM EDT Office Visit Rheumatology [address] [place] [phone] Samy Russo MD [facility] [place] [address] Scheduled Orders Name Type Priority Associated Diagnoses Orde r Schedule CBC WITH WBC DIFFERENTIAL Lab Routine Small cell lung cancer, right (HCC) Metastatic adenocarcinoma to liver (HCC) Expected: 12/16/2023, Expires: 12/15/2024 COMPREHENSIVE METABOLIC PANEL Lab STAT Small cell lung cancer, right (HCC) Metastatic adenocarcinoma to liver (HCC) Expected: 12/16/2023, Expires: 12/15/2024 PT INR Lab Routine Small cell lung cancer, right (HCC) Metastatic adenocarcinoma to liver (HCC) Expected: 12/16/2023, Expires: 12/15/2024 LD Lab Routine Small cell lung cancer, right (HCC) Metastatic adenocarcinoma to liver (HCC) Expected: 12/16/2023, Expires: 12/15/2024 CEA Lab Routine Small cell lung cancer, right (HCC) Metastatic adenocarcinoma to liver (HCC) Expected: 12/16/2023, Expires: 12/15/2024 IR VENOUS ACCESS MEDIPORT Medical Imaging STAT Small cell lung cancer, right (HCC) Metastatic adenocarcinoma to liver (HCC) Expected: 12/16/2023, Expires: 01/15/2025 Health Maintenance Due Date Last Done Comments [...] marrow documented in this encounter Care Teams Wind Turbine Electrical Engineer Relationship Specialty Start Date End Date Edel Clay MD [address] [place] [address] [place] [address] PCP - General Family Medicine 03/03/17 documented as of this encounter
--- OUTSIDE RECORDS SUMMARY | 2024-06-12 02:44 | External Medical Summary | Summary of Care ---
Author Name Unknown Organization [facility] Address [address] [place] [address] Phone [phone] Care Team Providers Care Consumer Relations Complaint Clerk Name Role Phone Edel Clay MD Primary Care Provide r Reason for Visit * Reason Onset Date Comments Precert Future 12/16/2023 Tecentriq, carbo platin, etoposide Encounter Details Date Type Department Care Team (Late st Contact Info) Description 12/16/2023 Telephone Hematology/Oncology Treatment, [place] [address] [place] [address] Monica Ward MD [address] [place] [phone] Precert Future (Tecentriq, carboplatin, et... Allergies [...] Thyroiditis 07/18/2008 06/01/2019 Overview: thyroglobulin antibody >3000 [id number] 08/19/200608/10 Overview: Renamed Per Clinical Trials Billing Project. Pt is a participant in the CORRO (Consortium of Rheumatology Researchers of [place]) national data collection study. For further information please call Dr Temo Castaneda or Kim Ríos, RN, CCRC at [phone] [facility] RESEARCH OTHER*[id number] 08/19/2006 11/06/2009 Overview: Renamed Per Clinical Trials Billing Project. Pt is a participant in the [facility] (Consortium of Rheumatology Researchers of [place]) national data collection study. For further information please call Dr Temo Castaneda or Kim Ríos, RN, CCRC at [phone] Arthritis, rheumatoid 07/01/20062016 Abnormal blood chemistry 05/02/2006 [...] Order received for tecentriq, carbo, etoposide, zometa. [place] plan built and routed for signature. Waiting [...] 2:30 PM EDT PulmDiagnostic Pulmonary Function Lab, [facility] [address] [place] [address] [address], [address] [facility] [place] [address] 01/15/2024 3:40 PM EDT Office Visit Pulmonary Medicine, [facility] [address] [facility] [place] [address] Eloy Pond MD [address] [facility] [place] [address] 02/06/2024 2:20 PM EDT Office Visit Family Medicine [address] [place] [phone] Amy Han PA-C [address] [place] [address] [place] [address] 10/15/2024 8:40 AM EDT Office Visit Rheumatology [address] [place] [phone] Samy Russo MD [facility] [place] [address] Scheduled Orders Name Type Priority Associated Diagnoses [...] marrow documented in this encounter Care Teams Consumer Relations Complaint Clerk Relationship Specialty Start Date End Date Edel Clay MD [address] [place] [address] [place] [address] PCP - General Family Medicine 03/03/17 documented as of this encounter
[2024-06-12] MEDS: ACETAMINOPHEN 325 MG TAB PO PRN (04:06)
[2024-06-12] MEDS: LEVOTHYROXINE SODIUM 100 MCG TABLET PO SCH (06:34)
--- OUTSIDE RECORDS SUMMARY | 2024-06-12 06:36 | External Medical Summary | Summary of Care ---
Author Name Unknown Organization [facility] Address [address] [place] [address] Phone [phone] Care Team Providers Care Manager Quality Compliance Name Role Phone Edel Clay MD Primary Care Provide r Reason for Visit * Reason Onset Date Comments Precert Future 06/09/2024 Zepzelca Encounter Details Date Type Department Care Team (Late st Contact Info) Description 06/09/2024 Telephone Hematology/Oncology [facility] [place] [address] [place] [address] Sukhjinder Faria MD [address] [facility] [address] Precert Future (Zepzelca) Allergies Active Allergy Reactions Criticality Noted Date Comments Clindamycin Hives 08/26/2014 Codeine 10/25/2011 "Stupor", drowsy Other Allergy (See Comments) 024 Perfumes, hairspray, candles, etc. Sinus infections, headaches, very sensitive. Penicillins 01/30/2006 Hives ans swelling Sulfa Antibiotics 06/29/2010 Sick to her stomach documented as of this encounter (statuses as of 06/11/2024) Medications OMEGA-3 FATTY ACIDS 1000 MG PO [...] as of this encounter (statuses as of 06/11/2024) Active Problems Problem Noted Date Diagnosed Date [...] as of this encounter (statuses as of 06/11/2024) Resolved Problems Problem Noted Date Diagnosed Date [...] 07/18/2008 06/01/2019 Overview (07/31/2009): thyroglobulin antibody >3000 [id number][facility] 08/19/200608/10 Overview (08/25/2009): Renamed Per Clinical Trials Billing Project. Pt is a participant in the [facility] (Consortium of Rheumatology Researchers of [facility]) national data collection study. For further information please call Dr Temo Castaneda or Kim Ríos, RN, CCRC at [phone] [facility] RESEARCH OTHER*[id number] 08/19/2006 11/06/2009 Overview (08/25/2009): Renamed Per Clinical Trials Billing Project. Pt is a participant in the [facility] (Consortium of Rheumatology Researchers of [place]) national data collection study. For further information please call Dr Temo Castaneda or Kim Ríos, RN, CCRC at [phone] Arthritis, rheumatoid 07/01/20062016 Abnormal blood chemistry 05/02/2006 [...] as of this encounter (statuses as of 06/11/2024) Immunizations Name Administration Dates Next Due COVID-19 [...] Telephone Encounter - Marcela Orellana RN - 06/11/2024 3:36 PM EST Patient went to ED- will need to follow admission to have treatment scheduled. * Telephone Encounter - Marcela Orellana RN - 06/10/2024 12:04 PM EST Referral entered. oJrdon: please advise if/ when zepzelca will be [...] Care Team (Late st Contact Info) Description 07/14/2024 3:00 PM EST Office Visit Pulmonary Medicine, [facility] [address] [place] [address] Eloy Pond MD [address] [place] [address] 09/13/2024 3:00 PM EDT Office Visit Rheumatology [address] [place] [phone] Maile Wallace CRNP [address] [place] [address] [place] [address] Pending Results Name Type Priority Associated Diagnoses Date /Time CK Lab STAT Small cell lung cancer, right (HCC) Metastasis to liver (HCC) Cancer, metastatic to bone (HCC) 06/11/2024 1:36 PM EST Scheduled Orders Name Type Priority Associated Diagnoses Orde r Schedule CBC WITH WBC DIFFERENTIAL Lab STAT Small cell lung cancer, right (HCC) Metastasis to liver (HCC) Cancer, metastatic to bone (HCC) Every 3 Weeks for 17 Occurrences starting 06/09/2024 until 06/09/2025, 1 completed COMPREHENSIVE METABOLIC PANEL Lab STAT Small cell lung cancer, right (HCC) Metastasis to liver (HCC) Cancer, metastatic to bone (HCC) Every 3 Weeks for 17 Occurrences starting 06/09/2024 until 06/09/2025, 1 completed CK Lab STAT Small cell lung cancer, [...] this encounter Medical Devices Implanted Type Area Foundation Assistant Device Identifier Shelf Expiration Date Model / Serial / Lot Port Implant W8f Poly Cath - [id number] Implanted:Qty : 1 on 12/31/2023 by Sin Burroughs MD at OR [facility] Right: Chest CR BARD : PERIPHERAL VASCULAR [id number] 10/09/2024 [id number] / / [id number] documented as of this encounter Results * (ABNORMAL) COMPREHENSIVE METABOLIC PANEL (06/11/2024 1:36 PM EST) [facility] BUN 13 6 - 20 mg/dL 06/11/2024 2:22 PM EST [facility] 56-02 CREATININE 0.7 0.5 - 1.0 mg/dL 06/11/2024 2:22 PM [facility] 56 EGFR >90 >=60 mL/min 06/11/2024 2:22 PM [facility] 56 Comment:eGFR is calculated b ased on the CKD-EPI 2020 equation. SODIUM 127(L) 135 - 146 mmol/L 06/11/2024 2:22 PM [facility] 56 POTASSIUM 3.1(L) 3.5 - 5.1 mmol/L 06/11/2024 2:22 PM [facility] 56 CHLORIDE 87(L) 98 - 107 mmol/L 06/11/2024 2:22 PM [facility] 56 CO2 26 22 - 32 mmol/L 06/11/2024 2:22 PM [facility] 56 ANION GAP 14 7 - 15 mmol/L 06/11/2024 2:22 PM [facility] 56 GLUCOSE 175(H) 70 - 120 mg/dL 06/11/2024 2:22 PM [facility] 56 Albumin 4.3 3.8 - 5.0 g/dL 06/11/2024 2:22 PM [facility] 56 AST 36(H) 10 - 35 U/L 06/11/2024 2:22 PM [facility] 56 Alkaline Phosphatase 80 35 - 130 U/L 06/11/2024 2:22 PM [facility] 56 Bilirubin, Total 0.5 <=1.2 mg/dL 06/11/2024 2:22 PM [facility] 56 CALCIUM 10.3(H) 8.4 - 10.2 mg/dL 06/11/2024 2:22 PM [facility] 56 Protein 7.7 6.0 - 8.3 g/dL 06/11/2024 2:22 PM [facility] 56 ALT 31 10 - 35 U/L 06/11/2024 2:22 PM [facility] 56 Blood Venous blood specimen / Unknown Venipuncture / Unknown 06/11/2024 1:36 PM EST 06/11/2024 1:36 PM EST Sukhjinder Faria MD LAB BLOOD ORDERABLES Final Res ult [facility] 56-[address] [place] [address] documented in this encounter Visit Diagnoses Diagnosis Small cell lung cancer, right (HCC)- Primary Metastasis to liver (HCC) Secondary malignant neoplasm of liver Cancer, metastatic to bone (HCC) Secondary malignant neoplasm of bone and bone marrow documented in this encounter Care Teams Manager Quality Compliance Relationship Specialty Start Date End Date Edel Clay MD [address] [place] [address] [place] [address] PCP - General Family Medicine 03/03/17 documented as of this encounter
--- OUTSIDE RECORDS SUMMARY | 2024-06-12 06:36 | External Medical Summary | Summary of Care ---
Author Name Unknown Organization [facility] Address [address] [place] [address] Phone [phone] Care Team Providers Care Sales Relationship Manager Name Role Phone Edel Clay MD Primary Care Provide r Reason for Visit * Reason Comments Education Encounter Details Date Type Department Care Team (Latest Contact Info) Description 06/11/2024 1:00 PM EST Pt Ed by Nurse Hematology/Oncology [facility] [place] [address] [place] [phone] Nurse [place] [facility] [address] [place] [address] Metastatic adenocarcinoma to liver (HCC); Small cell lung cancer, right (HCC); Cancer, metastatic to bone (HCC); Metastasis to [...] 07/18/2008 06/01/2019 Overview (07/31/2009): thyroglobulin antibody >3000 [id number][facility] 08/19/200608/10 Overview (08/25/2009): Renamed Per Clinical Trials Billing Project. Pt is a participant in the [facility] (Consortium of Rheumatology Researchers of [facility]) national data collection study. For further information please call Dr Temo Castaneda or Kim Ríos, RN, CCRC at [phone] [facility] RESEARCH OTHER*[id number] 08/19/2006 11/06/2009 Overview (08/25/2009): Renamed Per Clinical Trials Billing Project. Pt is a participant in the [facility] (Consortium of Rheumatology Researchers of [place]) national data collection study. For further information please call Dr Temo Castaneda or Kim Ríos, RN, CCRC at [phone] Arthritis, rheumatoid 07/01/20062016 Abnormal blood chemistry 05/02/2006 [...] Nursing Notes * Marcela Orellana RN - 06/11/2024 2:45 PM EST Patient presented for education visit. When getting patient, patient stated that her legs were weak, took assist x2 to get her out of waiting room chair. Patient using her fathers walker to ambulate. BP checked several times throughout visit- 188/115 with automatic cuff, 182/104 manually. 93%RA, temp 97.8, HR 100. Dr Faria in to see patient, would like lab work drawn. Labs resulted- Na 127, K 3.1. Patient to go to ED. She would like her father to drive her. TT sent to [facility] ED charge nurse. documented in this encounter Plan of Treatment Upcoming Encounters Date Type Department Care Team (Late st Contact Info) Description 07/14/2024 3:00 PM EST Office Visit Pulmonary Medicine, [facility] [address] [facility] [place] [phone] Eloy Pond MD [address] [place] [address] 09/13/2024 3:00 PM EDT Office Visit Rheumatology [address] [place] [phone] Maile Wallace CRNP [address] [place] [address] Pending Results Name Type Priority Associated Diagnoses Date /Time TSH WITH FREE T4 IF INDICATED Lab STAT Metastatic adenocarcinoma to liver (HCC) Small cell lung cancer, right (HCC) Cancer, metastatic to bone (HCC) 06/11/2024 1:36 PM EST CK Lab STAT Small cell lung cancer, right (HCC) Metastasis to liver (HCC) Cancer, metastatic to bone (HCC) 06/11/2024 1:36 PM EST ERYTHROCYTE SEDIMENTATION RATE (ESR) Lab STAT Metastatic adenocarcinoma to liver (HCC) Small cell lung cancer, right (HCC) Cancer, metastatic to bone (HCC) Metastasis to liver (HCC) 06/11/2024 1:36 PM EST Scheduled Orders Name Type Priority Associated Diagnoses Orde r Schedule ERYTHROCYTE SEDIMENTATION RATE (ESR) Lab STAT Metastatic adenocarcinoma to liver (HCC) Small cell lung cancer, right (HCC) Cancer, metastatic to bone (HCC) Metastasis to liver (HCC) Expected: 06/11/2024, Expires: 06/11/2025 Health Maintenance Due Date Last Done Comments [...] 09/11/2024 09/12/2023, 04/06/2021, 08/29/2020, Additional history exists Lipid Panel 05/19/2025 [...] this encounter Medical Devices Implanted Type Area Drill Sharpener Device Identifier Shelf Expiration Date Model / Serial / Lot Port Implant W8f Poly Cath - [id number] Implanted:Qty : 1 on 12/31/2023 by Sin Burroughs MD at OR [facility] Right: Chest CR BARD : PERIPHERAL VASCULAR [id number] 10/09/2024 [id number] / / [id number] documented as of this encounter Procedures Procedure Name Priority Date/Time Associated Diagnosis Comments DIFFERENTIAL, AUTOMATED STAT 06/11/2024 1:36 PM EST Small cell lung cancer, right (HCC) Metastasis to liver (HCC) Cancer, metastatic to bone (HCC) COMPREHENSIVE METABOLIC PANEL STAT 06/11/2024 1:36 PM EST Small cell lung cancer, right (HCC) Metastasis to liver (HCC) Cancer, metastatic to bone (HCC) CBC STAT 06/11/2024 1:36 PM EST Small cell lung cancer, right (HCC) Metastasis to liver (HCC) Cancer, metastatic to bone (HCC) CBC STAT 06/11/2024 1:36 PM EST Small cell lung cancer, right (HCC) Metastasis to liver (HCC) Cancer, metastatic to bone (HCC) MAGNESIUM STAT 06/11/2024 1:36 PM EST Small cell lung cancer, right (HCC) Metastasis to liver (HCC) Cancer, metastatic to bone (HCC) documented in this encounter Results * (ABNORMAL) DIFFERENTIAL, AUTOMATED (06/11/2024 1:36 PM EST) WBC 10.32 4.00 - 10.80 K/uL 06/11/2024 1:43 PM EST [facility] 56-02 Neutrophils % 82.2(H) 40.0 - 75.0 % 06/11/2024 1:43 PM EST [facility] 56-02 Lymphocytes % 14.2(L) 18.0 - 42.0 % 06/11/2024 1:43 PM EST [facility] 56-02 Monocytes % 3.5 1.0 - 11.0 % 06/11/2024 1:43 PM EST [facility] 56-02 Eosinophils % 0.0 0.0 - 6.0 % 06/11/2024 1:43 PM EST [facility] 56-02 Basophils % 0.1 0.0 - 2.0 % 06/11/2024 1:43 PM EST [facility] 56-02 Absolute Neutrophils 8.48(H) 1.80 - 7.70 K/uL 06/11/2024 1:43 PM EST [facility] 56-02 Absolute Lymphocytes 1.47 1.00 - 4.80 K/ul 06/11/2024 1:43 PM EST [facility] 56-02 Absolute Monocytes 0.36 0.00 - 1.10 K/uL 06/11/2024 1:43 PM EST [facility] 56-02 Absolute Eosinophils 0.00 0.00 - 0.70 K/uL 06/11/2024 1:43 PM EST [facility]-02 Absolute Basophils 0.01 0.00 - 0.20 K/uL 06/11/2024 1:43 PM [facility] 56-02 Blood Venous blood specimen / Unknown Venipuncture / Unknown 06/11/2024 1:36 PM EST 06/11/2024 1:36 PM EST us Sukhjinder Faria MD LAB BLOOD ORDERABLES Final Res ult [facility] 56- [address] [place] [address] * CBC (06/11/2024 1:36 PM EST) [facility] WBC 10.32 4.00 - 10.80 K/uL 06/11/2024 1:43 PM EST [facility] 56 RBC 4.20 3.85 - 5.15 M/uL 06/11/2024 1:43 PM EST [facility] 5602 HGB 13.6 12.0 - 15.3 g/dL 06/11/2024 1:43 PM [facility] 56 HCT 39.3 36.0 - 45.2 % 06/11/2024 1:43 PM [facility] 56 MCV 93.6 81.5 - 97.5 fL 06/11/2024 1:43 PM [facility] 5602 MCH 32.4 27.0 - 34.0 pg 06/11/2024 1:43 PM [facility] 5602 MCHC 34.6 32.0 - 36.0 g/dL 06/11/2024 1:43 PM [facility] 5602 RDW 13.7 11.5 - 15.5 % 06/11/2024 1:43 PM [facility] 5602 PLT 232 140 - 400 K/uL 06/11/2024 1:43 PM [facility] 5602 MPV 8.4 6.6 - 11.1 fL 06/11/2024 1:43 PM [facility] 5602 Blood Venous blood specimen / Unknown Venipuncture / Unknown 06/11/2024 1:36 PM EST 06/11/2024 1:36 PM EST us Sukhjinder Faria MD LAB BLOOD ORDERABLES Final Res ult [facility] 56- [address] [place] [address] * MAGNESIUM (06/11/2024 1:36 PM EST) Magnesium 1.6 1.5 - 2.6 mg/dL 06/11/2024 2:22 PM EST [facility] 56- Blood Venous blood specimen / Unknown Venipuncture / Unknown 06/11/2024 1:36 PM EST 06/11/2024 1:36 PM EST us Sukhjinder Faria MD LAB BLOOD ORDERABLES Final Res ult [facility] [address] [place] [address] * (ABNORMAL) COMPREHENSIVE METABOLIC PANEL (06/11/2024 1:36 PM EST) BUN 13 6 - 20 mg/dL 06/11/2024 2:22 PM EST [facility] 56- CREATININE 0.7 0.5 - 1.0 mg/dL 06/11/2024 2:22 PM EST [facility] 56 EGFR >90 >=60 mL/min 06/11/2024 2:22 PM [facility] 56 Comment:eGFR is calculated b ased on the CKD-EPI 2020 equation. SODIUM 127(L) 135 - 146 mmol/L 06/11/2024 2:22 PM [facility] 56- POTASSIUM 3.1(L) 3.5 - 5.1 mmol/L 06/11/2024 2:22 PM [facility] 56- CHLORIDE 87(L) 98 - 107 mmol/L 06/11/2024 2:22 PM [facility] 56- CO2 26 22 - 32 mmol/L 06/11/2024 2:22 PM EST [facility] 56- ANION GAP 14 7 - 15 mmol/L 06/11/2024 2:22 PM [facility] 56- GLUCOSE 175(H) 70 - 120 mg/dL 06/11/2024 2:22 PM EST [facility] 56- Albumin 4.3 3.8 - 5.0 g/dL 06/11/2024 2:22 PM [facility] 56- AST 36(H) 10 - 35 U/L 06/11/2024 2:22 PM EST [facility] 56-02 Alkaline Phosphatase 80 35 - 130 U/L 06/11/2024 2:22 PM EST [facility] 56-02 Bilirubin, Total 0.5 <=1.2 mg/dL 06/11/2024 2:22 PM EST [facility] 56-02 CALCIUM 10.3(H) 8.4 - 10.2 mg/dL 06/11/2024 2:22 PM EST [facility] 56-02 Protein 7.7 6.0 - 8.3 g/dL 06/11/2024 2:22 PM EST [facility] 56-02 ALT 31 10 - 35 U/L 06/11/2024 2:22 PM EST [facility] 56-02 Blood Venous blood specimen / Unknown Venipuncture / Unknown 06/11/2024 1:36 PM EST 06/11/2024 1:36 PM EST Sukhjinder Faria MD LAB BLOOD ORDERABLES Final Res ult [facility] 56-02 [address] [place] [address] * (ABNORMAL) CRP (INFLAMMATORY MARKER) (06/09/2024 10:00 AM EST) [facility] CRP (Inflammatory Marker) 13(H) <=5 mg/L 06/11/2024 2:52 PM EST [facility] Blood Venous blood specimen / Unknown Venipuncture / Unknown 06/09/2024 10:00 AM EST 06/09/2024 10:00 AM EST Sukhjinder Faria MD LAB BLOOD ORDERABLES Final Res ult [facility] [address] [place] [address] documented in this encounter Visit Diagnoses Diagnosis Metastatic adenocarcinoma to liver (HCC) Secondary malignant neoplasm of liver Small cell lung cancer, right (HCC) Cancer, metastatic to bone (HCC) Secondary malignant neoplasm of bone and bone marrow Metastasis to liver (HCC) Secondary malignant neoplasm of liver documented in this encounter Care Teams Sales Relationship Manager Relationship Specialty Start Date End Date Edel Clay MD [address] [place] [address] [place] [address] PCP - General Family Medicine 03/03/17 documented as of this encounter
--- OUTSIDE RECORDS SUMMARY | 2024-06-12 06:36 | External Medical Summary | Summary of Care ---
Author Name Unknown Organization [facility] Address [address] [place] [address] Phone [phone] Care Team Providers Care Certified Ophthalmic Medical Technician Name Role Phone Edel Clay MD Primary Care Provide r Reason for Visit * Reason Onset Date Comments Precert Future 06/09/2024 Zepzelca Encounter Details Date Type Department Care Team (Late st Contact Info) Description 06/09/2024 Telephone Hematology/Oncology [facility] [place] [address] [place] [address] Sukhjinder Faria MD [address] [facility] [address] Precert Future (Zepzelca) Allergies Active Allergy Reactions [...] 07/18/2008 06/01/2019 Overview (07/31/2009): thyroglobulin antibody >3000 [id number] 08/19/200608/10 Overview (08/25/2009): Renamed Per Clinical Trials Billing Project. Pt is a participant in the [facility] (Consortium of Rheumatology Researchers of [facility]) national data collection study. For further information please call Dr Temo Castaneda or Kim Ríos, RN, CCRC at [phone] [facility] RESEARCH OTHER*[id number] 08/19/2006 11/06/2009 Overview (08/25/2009): Renamed Per Clinical Trials Billing Project. Pt is a participant in the [facility] (Consortium of Rheumatology Researchers of [place]) national data collection study. For further information please call Dr Temo Castaneda or Kim Ríos, RN, CCRC at [phone] Arthritis, rheumatoid 07/01/20062016 Abnormal blood chemistry 05/02/2006 [...] EST Office Visit Pulmonary Medicine, [facility] [address] [place] [address] Eloy Pond MD [address] [place] [address] 09/13/2024 3:00 PM EDT Office Visit Rheumatology [address] [place] [phone] Maile Wallace CRNP [address] [place] [address] [place] [address] Pending Results Name Type Priority Associated Diagnoses [...] this encounter Medical Devices Implanted Type Area Business Banking Sales Assistant Device Identifier Shelf Expiration Date Model / Serial / Lot Port Implant W8f Poly Cath - [id number] Implanted:Qty : 1 on 12/31/2023 by Sin Burroughs MD at OR [facility] Right: Chest CR BARD : PERIPHERAL VASCULAR [id number] 10/09/2024 [id number] / / [id number] documented as of this encounter Results * (ABNORMAL) COMPREHENSIVE METABOLIC PANEL (06/11/2024 1:36 PM EST) [facility] BUN 13 6 - 20 mg/dL 06/11/2024 2:22 PM EST [facility] 56-02 CREATININE 0.7 0.5 - 1.0 mg/dL 06/11/2024 2:22 PM [facility] 56 EGFR >90 >=60 mL/min 06/11/2024 2:22 PM [facility] 56 Comment:eGFR is calculated b ased on the CKD-EPI 2020 equation. SODIUM 127(L) 135 - 146 mmol/L 06/11/2024 2:22 PM [facility] 56 POTASSIUM 3.1(L) 3.5 - 5.1 mmol/L 06/11/2024 2:22 PM [facility] 56 CHLORIDE 87(L) 98 - 107 mmol/L 06/11/2024 2:22 PM [facility] 56 CO2 26 22 - 32 mmol/L 06/11/2024 2:22 PM [facility] 56 ANION GAP 14 7 - 15 mmol/L 06/11/2024 2:22 PM [facility] 56 GLUCOSE 175(H) 70 - 120 mg/dL 06/11/2024 2:22 PM [facility] 56 Albumin 4.3 3.8 - 5.0 g/dL 06/11/2024 2:22 PM [facility] 56 AST 36(H) 10 - 35 U/L 06/11/2024 2:22 PM [facility] 56 Alkaline Phosphatase 80 35 - 130 U/L 06/11/2024 2:22 PM [facility] 56 Bilirubin, Total 0.5 <=1.2 mg/dL 06/11/2024 2:22 PM [facility] 56 CALCIUM 10.3(H) 8.4 - 10.2 mg/dL 06/11/2024 2:22 PM [facility] 56 Protein 7.7 6.0 - 8.3 g/dL 06/11/2024 2:22 PM [facility] 56 ALT 31 10 - 35 U/L 06/11/2024 2:22 PM [facility] 56 Blood Venous blood specimen / Unknown Venipuncture / Unknown 06/11/2024 1:36 PM EST 06/11/2024 1:36 PM EST Sukhjinder Faria MD LAB BLOOD ORDERABLES Final Res ult [facility] 56-[address] [place] [address] documented in this encounter Visit Diagnoses Diagnosis Small cell lung cancer, right (HCC)- Primary Metastasis to liver (HCC) Secondary malignant neoplasm of liver Cancer, metastatic to bone (HCC) Secondary malignant neoplasm of bone and bone marrow documented in this encounter Care Teams Certified Ophthalmic Medical Technician Relationship Specialty Start Date End Date Edel Clay MD [address] [place] [address] [place] [address] PCP - General Family Medicine 03/03/17 documented as of this encounter
--- OUTSIDE RECORDS SUMMARY | 2024-06-12 06:36 | External Medical Summary | Summary of Care ---
Author Name Unknown Organization [facility] Address [address] [place] [address] Phone [phone] Care Team Providers Care Architectural Draftsman Name Role Phone Edel Clay MD Primary Care Provide r Reason for Visit * Reason Onset Date Comments Medication Refill 06/11/2024 Encounter Details Date Type Department Care Team (Late st Contact Info) Description 06/11/2024 Refill Hematology/Oncology Treatment, [place] [address] [place] [address] Elizabeth Faria MD [address] [place] [address] Small cell lung cancer, right (HCC)*; Metastasis to liver (HCC); Cancer, metastatic to bone [...] mouth in the morning. 90 Tablet 1 12/23/20 24 Active Methotrexate Sodium 2.5 MG Oral Tablet TAKE 6 TABLETS BY MOUTH ONE TIME PER WEEK 78 Tablet 1 05/03/20 24 Active Prochlorperazine Maleate 10 MG Oral Tablet (Compazine)Indicat ions:Small cell lung cancer, right (HCC),Metastasis to liver (HCC),Cancer, metastatic to bone (HCC) Take 1 Tablet by mouth every 6 hours as needed for Nausea. 30 Tablet 3 06/11/19 25 Active Hospital, Clinic, or Other Facility Administered [...] 07/18/2008 06/01/2019 Overview (07/31/2009): thyroglobulin antibody >3000 [id number] 08/19/200608/10 Overview (08/25/2009): Renamed Per Clinical Trials Billing Project. Pt is a participant in the [facility] (Consortium of Rheumatology Researchers of [place]) national data collection study. For further information please call Dr Temo Castaneda or Kim Ríos, RN, CCRC at [phone] [facility] RESEARCH OTHER*[id number] 08/19/2006 11/06/2009 Overview (08/25/2009): Renamed Per Clinical Trials Billing Project. Pt is a participant in the [facility] (Consortium of Rheumatology Researchers of [place]) national data collection study. For further information please call Dr Temo Castaneda or Kim Ríos, RN, CCRC at [phone] Arthritis, rheumatoid 07/01/20062016 Abnormal blood chemistry 05/02/2006 [...] encounter Miscellaneous Notes * Telephone Encounter - Neelima Romo LPN - 06/11/2024 2:35 PM ESTSigned Prescriptions: Disp Refills Prochlorperazine Maleate 10 MG Oral Tablet*30 Tab*3 Sig: Take 1 Tablet by mouth every 6 hours as needed for Nausea.Authorizing Provider: ELIZABETH FARIA * Telephone Encounter - Elizabeth Faria MD - 06/11/2024 1:40 PM EST E-prescribed Elizabeth Faria MD Hem/Onc * Telephone Encounter - Marcela Orellana RN - 06/11/2024 1:23 PM EST Pended compazine. Patient has zofran at home. documented in this encounter Plan of Treatment Upcoming Encounters Date Type Department Care Team (Late st Contact Info) Description 07/14/2024 3:00 PM EST Office Visit Pulmonary Medicine, [facility] [address] [facility] [place] [address] Eloy Pond MD [address] [place] [address] 09/13/2024 3:00 PM EDT Office Visit Rheumatology [address] [place] [address] Maile Wallace CRNP [facility] [place] [address] Health Maintenance Due Date Last Done Comments [...] this encounter Medical Devices Implanted Type Area Power Transformer Repair Supervisor Device Identifier Shelf Expiration Date Model / Serial / Lot Port Implant W8f Poly Cath - [id number] Implanted:Qty : 1 on 12/31/2023 by Sin Burroughs MD at OR [facility] Right: Chest CR BARD : PERIPHERAL VASCULAR [id number] 10/09/2024 [id number] / / [id number] documented as of this encounter Visit Diagnoses Diagnosis Small cell lung cancer, right (HCC)- Primary Metastasis to liver (HCC) Secondary malignant neoplasm of liver Cancer, metastatic to bone (HCC) Secondary malignant neoplasm of bone and bone marrow documented in this encounter Care Teams Architectural Draftsman Relationship Specialty Start Date End Date Edel Clay MD [address] [place] [address] [place] [address] PCP - General Family Medicine 03/03/17 documented as of this encounter
--- OUTSIDE RECORDS SUMMARY | 2024-06-12 06:36 | External Medical Summary | Summary of Care ---
Author Name Unknown Organization [facility] Address [address] [place] [address] Phone [phone] Care Team Providers Care Dental Instructor Name Role Phone Edel Clay MD Primary Care Provide r Reason for Visit * Reason Onset Date Comments Test Results Lab 06/11/2024 Encounter Details Date Type Department Care Team (Late st Contact Info) Description 06/11/2024 Telephone Hematology/Oncology [facility] [place] [address] [facility] [place] [address] Sukhjinder Faria MD [address] [facility] [address] Test Results Lab Allergies Active Allergy Reactions Criticality Noted Date [...] 07/18/2008 06/01/2019 Overview (07/31/2009): thyroglobulin antibody >3000 [id number] 08/19/200608/10 Overview (08/25/2009): Renamed Per Clinical Trials Billing Project. Pt is a participant in the [facility] (Consortium of Rheumatology Researchers of [place]) national data collection study. For further information please call Dr Temo Castaneda or Kim Ríos, RN, CCRC at [phone] [facility] RESEARCH OTHER*[id number] 08/19/2006 11/06/2009 Overview (08/25/2009): Renamed Per Clinical Trials Billing Project. Pt is a participant in the [facility] (Consortium of Rheumatology Researchers of [place]) national data collection study. For further information please call Dr Temo Castaneda or Kim Ríos, RN, CCRC at [phone] Arthritis, rheumatoid 07/01/20062016 Abnormal blood chemistry 05/02/2006 [...] Telephone Encounter - Kike Alvarez RN - 06/11/2024 12:44 PM EST Reviewed patients lab work prior to nurse education visit with Dr. Faria today. Would like to repeat TSH/T4 and CMP with next treatment. Encourage oral potassium. documented in this encounter Plan of Treatment Upcoming Encounters Date Type Department Care Team (Late st Contact Info) Description 07/14/2024 3:00 PM EST Office Visit Pulmonary Medicine, [facility] [address] [facility] [place] [address] Eloy Pnod [facility] [address] [facility] [place] [address] 09/13/2024 3:00 PM EDT Office Visit Rheumatology [address] [place] [phone] Maile Wallace CRNP [address] [place] [address] Health Maintenance Due Date Last Done Comments [...] encounter Medical Devices Implanted Type Area Manager Language Device Identifier Shelf Expiration Date Model / Serial / Lot Port Implant W8f Poly Cath - [id number] Implanted:Qty : 1 on 12/31/2023 by Sin Burroughs MD at OR [facility] Right: Chest CR BARD : PERIPHERAL VASCULAR [id number] 10/09/2024 [id number] / / [id number] documented as of this encounter Care Teams Dental Instructor Relationship Specialty Start Date End Date Edel Clay MD [address] [place] [address] [place] [id number] PCP - General Family Medicine 03/03/17 documented as of this encounter
--- OUTSIDE RECORDS SUMMARY | 2024-06-12 06:36 | External Medical Summary ---
Author Name Unknown Address Unknown Organization K01:[facility] [place] [address] [place] [address] Laboratory Report Ordering Provider Test Date Status JUAQUIN JOHNSON 06/11/2024 13:36:56 Final Observation Date Value Abnormality Reference (Units ) Status Erythrocyte sedimentation rate by Photometric method 06/11/2024 13:36:56 48 Above high normal <30 (mm/hour) Final Performing Location [facility] [place] [address] [place] [address]
[2024-06-12 07:25] LABS: Hematocrit (blood only) 38.4 % (37.0-47.0); Mean Corpuscular Hemoglobin 31.3 pg (25.0-34.0); Mean Corpuscular Hgb Conc 33.9 g/dL (32.0-36.0); Mean Corpuscular Volume 92.3 fL (80.0-100.0); Mean Platelet Volume 8.7 fL (9.4-12.4); Platelet Count 220 K/uL (130-400); RDW Coefficient of Variation 13.9 % (11.5-14.5); RDW Standard Deviation 47.1 fL (36.4-46.3); Red Blood Count 4.16 M/uL (4.20-5.40); White Blood Count 11.07 K/ul (4.8-10.8)
[2024-06-12 07:48] LABS: Albumin Globulin Ratio 1.3 (0.9-2); Bilirubin,Total 0.4 mg/dl (0.2-1.0); Calcium 9.4 mg/dl (8.6-10.3); Globulin 3.2 gm/dl (2.5-4.0); Phosphorus 1.8 mg/dl (2.5-4.9); Potassium 3.7 mmol/L (3.5-5.1); Total Protein 7.2 gm/dl (6.0-8.3)
[2024-06-12] MEDS: oxyCODONE HCL IR 5 MG TAB (IMMEDIATE RELEASE) PO PRN (08:14)
[2024-06-12] MEDS: carvediloL 6.25 MG TAB PO SCH (08:30)
[2024-06-12] MEDS: ENOXAPARIN INJ 40 MG/0.4 ML SYR SQ SCH (08:31)
[2024-06-12] MEDS: FOLIC ACID 1 MG TAB PO SCH (08:32)
[2024-06-12] MEDS: MULTIVITAMIN TAB PO SCH (08:32)
[2024-06-12] MEDS: ADVANCED PROBIOTIC 625 MG CAPSULE PO SCH (08:32)
[2024-06-12] MEDS: predniSONE 5 MG TAB PO SCH (08:32)
[2024-06-12] MEDS: amLODIPine BESYLATE 5 MG TAB PO ONE (13:11)
--- NOTE | 2024-06-12 15:39 | Hospitalist Progress Note ---
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 Generalized weakness Poor appetite, nausea, vomiting Hypokalemia Hyponatremia Hypomagnesemia Patient presents with progressive weakness, has poor appetite associated with nausea and vomiting and abdominal pain for 3 days DIRECTOR ZONE. Patient sent from oncology office due to abnormal electrolytes. Admitting CXR negative for acute findings, right hilar mass redemonstrated. Admitting CTAP with metastatic disease to liver. Multifocal areas of infectious bronchiolitis in the partially visualized right middle lobe and left lower lobe of the lungs. Resp viral panel neg. Admitting sodium of 126 and potassium of 2.9 and magnesium of 1.5. Likely iso poor appetite prior to arrival s/p ivf and electrolyte replacement. Now in improving trend. Pt feels better, denies further nausea and vomiting. Reports improving appetite. Labs in AM Possible pneumonia: Admitting procal elevated. Admitting CTAP suggestive of multifocal areas of infectious bronchiolitis in the partially visualized right m iddle lobe and left lower lobe of the lungs. Continue with Rocephin 06/11, add doxycycline. c/w probiotic. follow admitting blood culture. Abnormal UA: UA suggestive of UTI, patient reported lower abdominal pain DIRECTOR ZONE but denies pain or burning with passing urine. Patient received Rocephin in the ED, Antibiotics as above. Follow admitting blood and urine culture. HTN: BP elevated, pt denies being on BP meds. d/w pt and added coreg and amlod 06/12, continue to uptitrate as needed. Other chronic medical conditions: Continue with/resume home meds as and when able Rheumatoid arthritis: Patient currently not taking Orencia due to being on chemotherapy. She reports taking 15 mg of prednisone daily. c/w pantoprazole while on high-dose of prednisone.This dose needs to be tapered down slowly/gradually w/ rheum f/u on DC. Hold methotrexate during acute illness. Hypothyroidism: Continue home levothyroxine. Repeat thyroid function test in 6 weeks time. TSH elevated while in hospital. Prediabetes: Monitor blood glucose. A1c in AM. Small cell Ca x lung: metastatic to bone and liver. f/u w/ oncology on dc in 1-2 weeks. pain management. oxycodone started. DVT prophylaxis: Lovenox subcu Full code Pt's elizabeth was udpated at bedside. Await pt/ot eval, await bl cx reports. Admission and Anticipated Discharge Date Admission Date: June 11, 2024 Subjective Patient was seen and examined at bedside. Patient was lying in bed, on room air, NAD, resting comfortably. Patient has generalized joint and muscle pain due to her underlying rheumatoid arthritis. Patient confirms that she takes 15 mg of prednisone daily which was started recently upon discussion with her heliotherapist per patient. Patient's at bedside was also updated on plan of care. Patient reports feeling overall better, reports strength coming back, reports appetite improving, reports 1 bowel movement. Will remove nelson. communicated w/ rn. Physical Exam Physical Exam: GENERAL: Alert and oriented x3. NAD, on RA. Appears weak/frail. HEENT: No pallor, no icterus. Pupils equal, round and reactive to light. Oral mucosa moist. NECK: No JVD, no neck masses. HEART: S1 and S2 heard. Regular rate and rhythm. No murmur, no gallop. RESPIRATORY SYSTEM: Normal AP diameter. No accessory muscle use. No wheezing, no crackles. ABDOMEN: Soft, bowel sounds present, nontender, no distention. CENTRAL NERVOUS SYSTEM: No facial droop. Speech is clear. Obeys simple commands. Moves extremities. EXTREMITIES: No edema, no erythema seen. UC w/ vinayak urine in bag noted. Results & Data Results & Data Vital Signs (Past 12 Hours) Vital Signs Temp Pulse Pulse Resp BP BP BP 06/12/24 14:56 157/88 H 06/12/24 12:42 72 172/100 H 06/12/24 12:08 77 172/102 H 06/12/24 11:45 36.3 C L 83 19 172/102 H 06/12/24 09:25 163/89 H 06/12/24 08:15 79 186/100 H 06/12/24 08:00 02/01/25 07:35 91 H 190/95 H 06/12/24 07:23 36.5 C 84 19 190/95 H Pulse Ox O2 Del Method 06/12/24 14:56 06/12/24 12:42 06/12/24 12:08 06/12/24 11:45 96 Room Air 06/12/24 09:25 06/12/24 08:15 06/12/24 08:00 Room Air 06/12/24 07:35 06/12/24 07:23 97 Room Air
[2024-06-12] MEDS: cefTRIAXone SODIUM 2,000 MG/50 ML BAG IV SCH (16:36)
[2024-06-12] MEDS: POT PHOSPHATE MONOBASIC W/ SOD TAB PO SCH (16:37)
[2024-06-13] MEDS: ALUMINUM/MAGNESIUM SUSP 30 ML UDC PO PRN (01:24)
[2024-06-13] MEDS: hydrALAZINE HCL 20 MG/ML VIAL IV STA (04:31)
[2024-06-13 07:22] LABS: Hematocrit (blood only) 38.2 % (37.0-47.0); Hemoglobin 13.5 g/dl (12.0-16.0); Mean Corpuscular Hemoglobin 32.1 pg (25.0-34.0); Mean Corpuscular Hgb Conc 35.3 g/dL (32.0-36.0); Mean Corpuscular Volume 90.7 fL (80.0-100.0); Mean Platelet Volume 8.5 fL (9.4-12.4); Platelet Count 218 K/uL (130-400); RDW Coefficient of Variation 13.5 % (11.5-14.5); RDW Standard Deviation 45.3 fL (36.4-46.3); Red Blood Count 4.21 M/uL (4.20-5.40); White Blood Count 10.53 K/ul (4.8-10.8)
[2024-06-13 07:26] LABS: Albumin Globulin Ratio 1.1 (0.9-2); Albumin Level 3.9 gm/dl (3.4-5.0); Bilirubin,Total 0.5 mg/dl (0.2-1.0); Calcium 8.8 mg/dl (8.6-10.3); Creatinine Clr Calc Pharmacy 120.5 ml/min; Globulin 3.4 gm/dl (2.5-4.0); Magnesium 1.6 mg/dl (1.7-2.4); Total Protein 7.3 gm/dl (6.0-8.3)
[2024-06-13 07:38] VITALS: RESP 19; TEMP 97.5
[2024-06-13] MEDS: amLODIPine BESYLATE 5 MG TAB PO SCH (08:51)
[2024-06-13] MEDS: PANTOprazole 40 MG TAB PO SCH (08:52)
[2024-06-13] MEDS: POTASSIUM CHLORIDE CRTAB 20 MEQ TABCR PO SCH (09:00)
[2024-06-13] MEDS: MAGNESIUM OXIDE 400 MG TAB PO SCH (10:18)
[2024-06-13 11:14] VITALS: O2SAT 96
[2024-06-13 12:10] VITALS: BP 148/87; PULSE 102
--- NOTE | 2024-06-13 13:06 | Discharge Summary ---
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 Patient appears very tired and forgetful, history is very difficult to extract though patient seems to be answering questions very appropriately due to her mixing up her current symptoms due to forgetfullness. 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 Patient reports loose stool but denies diarrhea. Patient reports quitting smoking November 2023, smoked 1 packs a day for more than 20 years before that. Denies alcohol use and recreational drug use. Medications reviewed with the patient at bedside. Plan of care discussed with the patient in detail at bedside. Full code Admission Exam Per Admitting Provider GENERAL: Alert and oriented x3. NAD, on RA. Appears tired, weak/frail. HEENT: No pallor, no icterus. Pupils equal, round and reactive to light. Oral mucosa moist. NECK: No JVD, no neck masses. HEART: S1 and S2 heard. Regular rate and rhythm. HR in high 90s. No murmur, no gallop. RESPIRATORY SYSTEM: Normal AP diameter. No accessory muscle use. No wheezing, no crackles. ABDOMEN: Soft, bowel sounds present, nontender, no distention. CENTRAL NERVOUS SYSTEM: No facial droop. Speech is clear. Obeys simple commands. Moves extremities. EXTREMITIES: No edema, no erythema seen. UC w/ vinayak urine in bag noted. Principal Diagnosis Generalized weakness Poor appetite, nausea, vomiting Hypokalemia Hyponatremia Hypomagnesemia Possible pneumonia: Discharge Exam Constitutional: WD/WN, vitals as above, NAD, sitting up in bed, pleasant, conversing easily Respiratory: normal respiratory effort, lungs clear to auscultation, no wheeze, rales, rhonchi. Normal insp/exp effort, no accessory muscle use Cardiovascular: RRR, no murmur, no edema Vessels: no JVD or carotid bruit Chest: normal inspection of chest Abdomen: normal bowel sounds, soft, nontender, no hepatosplenomegaly Musculoskeletal: no cyanosis or clubbing, extremities motor strength 5/5 Skin: no rashes, warm and dry normal turgor Neurologic: PERRL, EOMI, accommodation nl, no face palsy, no dysarthria CN's II- XI intact bilaterally and moves all extremities Psychiatric: A+Ox3, euthymic affect Discharge Data Allergies Allergy/AdvReac Type Severity Reaction Status Date / Time Sulfa (Sulfonamide Allergy Mild Nausea Verified 12/23/23 10:19 Antibiotics) codeine AdvReac sleepy Verified 12/23/23 10:19 PCN Allergy Severe Hives/swell Uncoded 12/23/23 10:19 ing Clindamycin Allergy Intermediate Hives Uncoded 12/23/23 10:19 Consultations 06/11/24 19:54 ED Decision to Admit Stat Ordered Studies 06/11/24 16:39 CT Abd and Pelvis [CT abd pelvis IV con only] Stat Hospital Course (1) Acute hyponatremia: (2) Hypomagnesemia: (3) Acute hypokalemia: Plan 59-year-old lady with PMH of HLD, acquired hypothyroidism, prediabetes, rheumatoid arthritis on daily prednisone [patient reports taking 15 mg prednisone daily], 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 Patient sent from oncology office due to abnormal electrolytes. Admitting CXR negative for acute findings, right hilar mass redemonstrated. Admitting CTAP with metastatic disease to liver. Multifocal areas of infectious bronchiolitis in the partially visualized right middle lobe and left lower lobe of the lungs. Resp viral panel neg. During the hospitalization, patient was given IV fluids, potassium and magnesium supplement with improvement in the electrolytes level. 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 Patient was recommended to initiate fluid restriction, continue supplementation of potassium and magnesium and follow-up with primary care doctor for repeat BMP. At the time of the discharge, patient was alert oriented x 3; reported significant improvement in generalized weakness and appetite. Case management was given prescription for rolling walker Possible pneumonia: Admitting procal elevated. Admitting CTAP suggestive of multifocal areas of infectious bronchiolitis in the partially visualized right middle lobe and left lower lobe of the lungs. Treated with antibiotic; switch to p.o. at discharge. HTN: BP elevated, pt denies being on BP meds. d/w pt and added coreg and amlod 06/12. Patient recommended to monitor blood pressure at home. Please note the above document was generated using voice recognition software. It may contain grammatical, syntax or spelling errors. Any formal questions or concerns about the content, text or information contained within the body of this dictation should be directly addressed to the provider for clarification Total Time Total Time Spent Total Time Spent (In Minutes): 56 Total Time Includes: Examination of the Patient, Discharge Planning, Medication Reconciliation, Communication With Other Providers and Other Discharge Plan Discharge Items Patient Disposition: Home - Self-Care Reason For Visit: ELECTROLYTE ABN, REFERRAL FROM ONC OFFICE Discharge Diagnosis: Hyponatremia Hypokalemia Hypomagnesemia Possible pneumonia Activity: Resume your previous activity Non-emergency contact: Primary Care Provider Call non-emergency contact if: you have any medication questions and your symptoms worsen Follow-up/Referrals: Edel Clay MD [Primary Care Provider] - Diet: Regular Fluids: 1500ml (6 cups) Addtl Attending Provider Instructions: You were admitted to the hospital due to low electrolytes. Please follow the instructions below; For low sodium level, please restrict fluid amount to 1500 cc for 24 hours. This includes water, coffee, soda or tea. Protein shakes do not Constulose the fluid restriction. For low potassium level, you are prescribed potassium tablets to be taken twice a day. For low magnesium level, you are prescribed magnesium tablets to be taken twice a day For possible pneumonia, you are prescribed cefdinir and doxycycline to be taken for 5 days. Your blood pressure was found to be on higher side during the hospitalization; you are prescribed amlodipine 5 mg and Coreg 6.25 mg to be taken twice a day for high blood pressure. Please measure blood pressure daily at home and noted down. Measure blood pressure in a sitting position with both feet on the ground and your arm rested. Appointment with your primary care doctor will be set up for you for sometime later this week. You will need blood work to be done to check on your electrolytes. Pending Studies at Discharge: No Stand-Alone Forms: My [facility], Smoking Cessation Medications and DC Order Prescriptions: New carvedilol 6.25 mg Tablet 6.25 mg PO BIDM 30 Days Qty: 60 0RF doxycycline hyclate 100 mg Capsule 100 mg PO BID 5 Days Qty: 10 0RF amlodipine [Norvasc] 5 mg Tablet 5 mg PO QAM 30 Days Qty: 30 0RF potassium chloride 20 mEq Tablet,Er Particles/Crystals 20 meq PO BID 30 Days Qty: 60 0RF magnesium oxide 400 mg (241.3 mg magnesium) Tablet 400 mg PO BID Qty: 60 0RF cefdinir 300 mg capsule 300 mg PO BID 5 Days Qty: 10 0RF Continued multivitamin Tablet 1 tab PO DAILY levothyroxine 100 mcg capsule 100 mcg PO DAILY omega-3 fatty acids 1,000 mg capsule 1,000 mg PO DAILY prochlorperazine maleate [Compazine] 10 mg tablet 10 mg PO Q6H PRN (Reason: Nausea) methotrexate sodium 2.5 mg tablet 15 mg PO WK Rx Instructions: MONDAYS folic acid 1 mg tablet 1 mg PO DAILY Discharge Orders: Discharge Order (Routine); Ordered 06/13/24 Ordered By: Brown Ramon Admission Data Admit Date/Time: 06/11/24 21:16 Attending Provider: Brown Ramon Admit Provider: Pernell Hidalgo Primary Care Provider: Edel Clay Other Providers: Dexter Dallas Other Interventions: Discharge Summary Assessment (RN) Last Done: 06/13/24 12:08
[2024-06-13 13:17] LABS: Urine Potassium 51.1 mmol/L
== END 2024-06-13 12:47 | disposition home or self-care (01) | DRG 640 ==
LOC: ED 15:09 → 4W 21:16 → SUATTDRO 21:16 → 4W 22:52

== ENCOUNTER 2024-06-14 23:13 | Inpatient (IN) ==
[2024-06-14] MEDS: DROPERIDOL 5 MG/2 ML VIAL IV STA (23:48)
--- NOTE | 2024-06-14 23:51 | Emergency Department Note ---
Impression & Plan Altered mental status, Acute hyponatremia, Delirium due to general medical condition ED Provider Note NAME: NICHOL RODARTE AGE: 59 SEX: F : 1965 ARRIVES VIA: Ambulance INFORMANT: Patient, ED PROVIDER(S): Jing Faria MD CHIEF COMPLAINT: Confusion HPI: This a 59-year-old female presented for confusion. Patient reports has been having symptoms of confusion since her 11 AM. She is with her who provides a history. He has been worsening throughout the day, slowly. This not sudden onset. She moving all extremities. She does not follow commands. She moves around in the stretcher, attempted to swat at staff. She does not answer questioning. Patient was recently here for weakness, hyponatremia, electro disturbances and UTI. She was discharged in stable condition. ROS: Unable to obtain PHYSICAL EXAMINATION: General: Confused, Head: Normocephalic and atraumatic Eyes: PERRLA Ear, nose, throat: Normal external exam Neck: Normal range of motion Respiratory: lungs clear to auscultation bilaterally Cardiovascular: Regular rate/rhythm, no murmur GI: soft, nontender Extremities: nontender, moves all extremities Neuro: Awake, does not follow commands, moves all extremities, response to painful stimuli Skin: Warm, dry, and intact MEDICAL DECISION MAKING: This is a 59-year-old female presenting for confusion. Patient does appear very confused at this time, does not follow any commands. Consider intracranial process such as hemorrhage, infection, metabolic cephalopathy, UTI -Patient has no current focality to her symptoms -In order to facilitate further workup, patient did require low-dose droperidol, 1.25 mg IV -Glucose reveals a leukocytosis to 17.46. She is significant hyponatremia to 121 with a chloride of 88. Lactate initially 2.1. Hypocalcemia. Troponin 21.1. -UA does not reveal signs of UTI -Negative viral panel -Chest Xray independently interpreted by me showing no pneumothorax, pleural effusions -CT of the head is currently negative -Currently patient is saying words such as thank you help me, still fairly encephalopathic. Unclear etiology at this time. Consider hyponatremia. Continues to remain without signs of acute stroke. She is comfortably resting at this time -Patient will be admitted to the hospital for her continued altered mental status. Differential diagnosis: See above Independent History obtained from: Diagnostics interpreted by me: ECG: ECG independently interpreted by me with normal sinus rhythm, rate of 88, normal MS, normal QRS, normal QTc, no ST segment elevations consistent with STEMI criteria Cardiac Monitoring: An order was placed for continuous cardiac monitoring. The monitor shows a rate of 88 with sinus rhythm. Past Med/Surg History Problem List (Updated 06/15/24 @ 05:18 by Jing Faria MD) Delirium due to general medical condition (Acute) Acute hyponatremia (Acute) Altered mental status (Acute) Elevated procalcitonin (Acute) Acute urinary retention (Acute) Acute UTI (urinary tract infection) (Acute) Acute hyponatremia (Acute) Hypomagnesemia (Acute) Acute hypokalemia (Acute) Generalized weakness (Acute) Small cell lung cancer, right upper lobe (Chronic) Mixed dyslipidemia Medical History (Updated 06/15/24 @ 05:18 by Jing Faria MD) Kidney stone Prediabetes Black hairy tongue Lung cancer Diagnosed 12/04/23;Small cell lung cancer, right Thyroid goiter Ovarian cyst Hypothyroidism Rheumatoid arthritis Allergic rhinitis Surgical History (Updated 12/23/23 @ 10:13 by Alise Hunter, RN) Status post bronchoscopy 12/04/23 Hx of cholecystectomy History of surgery Excision left breast lesion - benign Family History (Updated 12/23/23 @ 13:23 by Alise Hunter, RN) Mother , 69yo Stroke Hypertension Diabetes Father Pacemaker Hypertension Diabetes Brother Diabetes Hypertension Son MVA (motor vehicle accident) Social History (Updated 12/23/23 @ 13:25 by Alise Hunter, RN) Smoking Status: Current some day smoker Tobacco Type: Cigarettes Cigarettes Per Day: 1 PPD x 40yrs; Second Hand Exposure: No; Hx Alcohol Use: No Hx Substance Use: No Preferred Language: Maltese Communication Ability: Effective Visual Impairment: No Limitations Hearing Ability: Normal Technical Program Manager Required: No Beliefs That Will Affect Care: None marital status: Current Living Situation: Spouse current occupational status: employed 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 How many Children do You have: 0 Feels Safe at Home: Yes Diet: regular caffeine: Yes (3 cups/day) during the past year weight has: remained stable Assistive Devices: Cane Allergies Allergies Allergy/AdvReac Type Severity Reaction Status Date / Time Sulfa (Sulfonamide Allergy Mild Nausea Verified 12/23/23 10:19 Antibiotics) codeine AdvReac sleepy Verified 12/23/23 10:19 PCN Allergy Severe Hives/swell Uncoded 12/23/23 10:19 ing Clindamycin Allergy Intermediate Hives Uncoded 12/23/23 10:19 Home Meds Home Medications Medication Instructions Recorded Confirmed levothyroxine 100 mcg capsule 100 mcg PO DAILY 12/23/23 06/15/24 multivitamin 1 tab PO DAILY 12/23/23 06/15/24 omega-3 fatty acids 1,000 mg 1,000 mg PO DAILY 12/23/23 06/15/24 capsule prochlorperazine maleate 10 mg 10 mg PO Q6H PRN Nausea 12/23/23 06/15/24 tablet (Compazine) folic acid 1 mg tablet 1 mg PO DAILY 06/11/24 06/15/24 methotrexate sodium 2.5 mg tablet 15 mg PO WK 06/11/24 06/15/24 Previous Rx's Medication Instructions Recorded amlodipine 5 mg tablet (Norvasc) 5 mg PO QAM 30 days #30 tabs 06/13/24 carvedilol 6.25 mg tablet 6.25 mg PO BIDM 30 days #60 tabs 06/13/24 cefdinir 300 mg capsule 300 mg PO BID 5 days #10 caps 06/13/24 doxycycline hyclate 100 mg capsule 100 mg PO BID 5 days #10 caps 06/13/24 magnesium oxide 400 mg (241.3 mg 400 mg PO BID #60 tabs 06/13/24 magnesium) tablet potassium chloride 20 mEq 20 meq PO BID 30 days #60 tabs 06/13/24 tablet,extended release(part/cryst) Results & Data (ED) Vital Signs Vital Signs - 24 hr 06/14/24 23:20 06/14/24 23:36 06/15/24 00:33 Temperature 36.0 C L Temperature Source Axillary Pulse Rate 99 H 74 79 Pulse Rate [Right Finger] Respiratory Rate 20 Blood Pressure 211/116 H Blood Pressure [Left Arm] Blood Pressure Mean 147 Blood Pressure Mean [Left Arm] Pulse Oximetry 99 98 Oxygen Delivery Method Sepsis Recent Fever Within 48 Hours No Sepsis New/Unexplained Change in Mental Status Yes Sepsis Action Taken by Nursing No Action Required 06/15/24 00:34 06/15/24 00:35 06/15/24 02:22 Temperature Temperature Source Pulse Rate Pulse Rate [Right Finger] 88 81 Respiratory Rate 22 16 Blood Pressure Blood Pressure [Left Arm] 168/100 H 197/76 H Blood Pressure Mean Blood Pressure Mean [Left Arm] 122 116 Pulse Oximetry 99 99 96 Oxygen Delivery Method Room Air Sepsis Recent Fever Within 48 Hours Sepsis New/Unexplained Change in Mental Status Sepsis Action Taken by Nursing 06/15/24 03:37 06/15/24 03:57 Temperature Temperature Source Pulse Rate 70 Pulse Rate [Right Finger] 75 Respiratory Rate 18 Blood Pressure Blood Pressure [Left Arm] 180/88 H Blood Pressure Mean Blood Pressure Mean [Left Arm] 118 Pulse Oximetry 96 Oxygen Delivery Method Sepsis Recent Fever Within 48 Hours Sepsis New/Unexplained Change in Mental Status Sepsis Action Taken by Nursing Laboratory Data 06/14/24 23:28 06/14/24 23:28 Lab Results 06/14/24 06/14/24 06/15/24 Range/Units 23:28 23:42 01:15 WBC 17.46 H (4.8-10.8) K/ul RBC 4.60 (4.20-5.40) M/uL Hgb 14.5 (12.0-16.0) g/dl Hct 40.7 (37.0-47.0) % MCV 88.5 (80.0-100.0) fL MCH 31.5 (25.0-34.0) pg MCHC 35.6 (32.0-36.0) g/dL RDW Std Deviation 44.0 (36.4-46.3) fL RDW Coeff of Fifi 13.6 (11.5-14.5) % Plt Count 236 (130-400) K/uL MPV 8.4 L (9.4-12.4) fL Immature Gran % (Auto) 0.5 % Neut % (Auto) 84.9 % Lymph % (Auto) 9.6 % Blair % (Auto) 4.8 % Eos % (Auto) 0.1 % Baso % (Auto) 0.1 % Neut # (Auto) 14.84 H (1.40-6.50) K/uL Lymph # (Auto) 1.68 (1.20-3.40) K/uL Blair # (Auto) 0.83 H (0.11-0.59) K/uL Eos # (Auto) 0.02 (0.00-0.50) K/uL Baso # (Auto) 0.01 (0.00-0.20) K/uL Immature Gran # (Auto) 0.08 (0.01-0.20) K/uL Sodium 121 L (136-145) mmol/L Potassium 3.9 D (3.5-5.1) mmol/L Chloride 88 L (98-107) mmol/L Carbon Dioxide 23 (21-32) mmol/L Anion Gap 10 (3-11) BUN 12 (6-23) mg/dl Creatinine 0.58 L (0.6-1.2) mg/dl Est Cr Clr Drug Dosing 113.5 ml/min eGFR 105.48 BUN/Creatinine Ratio 20.7 H (10-20) Glucose 164 H (70-99(Fasting)) mg/dl POC Glucose 172 H (70-99) mg/dl Lactate 2.1 H* 2.2 H* (0.4-2.0) mmol/L Calcium 8.3 L (8.6-10.3) mg/dl Total Bilirubin 0.7 (0.2-1.0) mg/dl AST 33 (13-39) U/L ALT 40 (7-52) U/L Alkaline Phosphatase 74 (34-104) U/L Troponin I High Sens 21.1 H 25.0 H (0-14) pg/ml Total Protein 8.0 (6.0-8.3) gm/dl Albumin 4.3 (3.4-5.0) gm/dl Globulin 3.7 (2.5-4.0) gm/dl Albumin/Globulin Ratio 1.2 (0.9-2) TSH 5.864 H (0.300-4.500) uIu/ml Free T4 1.18 (0.61-1.60) ng/dl Urine Color Yellow Urine Appearance Clear (Clear) Urine pH 8.0 H (4.5-7.5) Ur Specific [place] 1.014 (1.000-1.030) Urine Protein 1+ H (Negative) Urine Glucose (UA) 2+ H (Negative) Urine Ketones 1+ H (Negative) Urine Blood Negative (Negative) Urine Nitrite Negative (Negative) Urine Bilirubin Negative (Negative) Urine Urobilinogen Negative (Negative) Ur Leukocyte Esterase Negative (Negative) Urine WBC (Auto) 0-5 (0-5) /hpf Urine RBC (Auto) 6-10 H (0-2) /hpf U Hyaline Cast (Auto) 0-2 (0-2) /lpf U Epithel Cells (Auto) 0-2 (0-2) /hpf Urine Bacteria (Auto) None Seen (None Seen) Adenovirus (PCR) Not Detected (NotDetected) B. pertussis DNA (PCR) Not Detected (NotDetected) B.parapertussis DNA PCR Not Detected (NotDetected) C. pneumoniae DNA (PCR) Not Detected (NotDetected) Coronavirus OC43 (PCR) Not Detected (NotDetected) Coronavirus HKU1 (PCR) Not Detected (NotDetected) Coronavirus 229E (PCR) Not Detected (NotDetected) SARS-CoV-2 (PCR) Not Detected (NotDetected) Coronavirus NL63 (PCR) Not Detected (NotDetected) Human Metapneumovir PCR Not Detected (NotDetected) Influenza Type A (PCR) Not Detected (NotDetected) Influenza Type B (PCR) Not Detected (NotDetected) M. pneumoniae (PCR) Not Detected (NotDetected) Parainfluenza 1 (PCR) Not Detected (NotDetected) Parainfluenza 2 (PCR) Not Detected (NotDetected) Parainfluenza 3 (PCR) Not Detected (NotDetected) Parainfluenza 4 (PCR) Not Detected (NotDetected) RSV (PCR) Not Detected (NotDetected) Entero/Rhino (PCR) Not Detected (NotDetected) Administered Medications Discontinued Medications Droperidol (Droperidol 5 Mg/2 Ml Vial) 1.25 mg IV ONE STA Stop: 06/14/24 23:46 Last Admin: 06/14/24 23:48 Dose: 1.25 mg Documented By: CTK Imaging Data Radiologist's Impression: Chest X-Ray 06/14/24 23:28 EXAM: XR chest 1V portable CLINICAL HISTORY: Weakness. TECHNIQUE: An X-ray image of the chest is obtained using an AP projection. COMPARISON: 06/11/2024. FINDINGS: Pulmonary Parenchyma: Inhomogeneous shadowing right perihilar area. No evidence of consolidation, collapse, or focal opacities. No pulmonary nodules are identified. No evidence of pleural effusion or pleural thickening. Heart and Mediastinum: Heart size and shape are normal. No mediastinal widening or masses. Prominent right hilum. Bony Thorax: The bony thorax appears intact without fractures or deformities. Soft Tissues: Soft tissues overlying the chest wall are unremarkable. The tip of the selvin catheter at slightly below the cavoatrial level, this could be projectional/positional. IMPRESSION: Redemonstration of right hilar opacity, possible congested right hilar vasculature/Infiltration with possible right hilar lymphadenopathy. Suggestive for clinical correlation and CT chest if clinically warranted. Electronically signed by Noé Ortega 06-15-2024 03:[address] 06/14/24 23:29 EXAM: CT head/brain wo con CLINICAL HISTORY: confusion, nonfocal neuro, bleed? TECHNIQUE: Multiple axial images are obtained from the skull base to the vertex without contrast. CT scan was performed according to ALARA (as low as reasonable achievable). COMPARISON: None. FINDINGS: There is cerebral atrophy. No evidence of space occupying lesion, hemorrhage, edema, mass effect, midline shift, extra axial collection, or hydrocephalus is noted. Basal cisterns are symmetric and normal in size and configuration. There are scattered periventricular hypodensities as can be seen with chronic microvascular ischemic changes. The agmino-white matter differentiation is preserved. Visualized paranasal sinuses and mastoid air cells are well aerated. Orbital contents are within normal limits. Bony structures are intact. IMPRESSION: 1. No evidence of acute intracranial abnormality is demonstrated. 2. Chronic microvascular ischemic changes. 3. Cerebral atrophy. Electronically signed by Vimal Ojeda 06-15-2024 01:00 AM Discharge Plan Visit Data Chief Complaint: Altered Mental Status Stated Complaint: eyes open, looking around, no response ED Provider: Jing Faria Discharge Problem: Altered mental status, Acute hyponatremia, Delirium due to general medical condition Forms Stand Alone Forms: My [employer] Prescriptions Prescriptions: No Action multivitamin Tablet 1 tab PO DAILY levothyroxine 100 mcg capsule 100 mcg PO DAILY omega-3 fatty acids 1,000 mg capsule 1,000 mg PO DAILY prochlorperazine maleate [Compazine] 10 mg tablet 10 mg PO Q6H PRN (Reason: Nausea) methotrexate sodium 2.5 mg tablet 15 mg PO WK Rx Instructions: MONDAYS folic acid 1 mg tablet 1 mg PO DAILY carvedilol 6.25 mg Tablet 6.25 mg PO BIDM 30 Days Qty: 60 0RF doxycycline hyclate 100 mg Capsule 100 mg PO BID 5 Days Qty: 10 0RF amlodipine [Norvasc] 5 mg Tablet 5 mg PO QAM 30 Days Qty: 30 0RF potassium chloride 20 mEq Tablet,Er Particles/Crystals 20 meq PO BID 30 Days Qty: 60 0RF magnesium oxide 400 mg (241.3 mg magnesium) Tablet 400 mg PO BID Qty: 60 0RF cefdinir 300 mg capsule 300 mg PO BID 5 Days Qty: 10 0RF Referrals Referrals: Edel Clay MD [Primary Care Provider] -
[2024-06-15 00:06] LABS: Basophils # (auto) 0.01 K/uL (0.00-0.20); Basophils % (auto) 0.1 %; Eosinophils # (auto) 0.02 K/uL (0.00-0.50); Eosinophils % (auto) 0.1 %; Hematocrit (blood only) 40.7 % (37.0-47.0); Hemoglobin 14.5 g/dl (12.0-16.0); Immature Granulocytes # (auto) 0.08 K/uL (0.01-0.20); Immature Granulocytes % (auto) 0.5 %; Lymphocytes # (auto) 1.68 K/uL (1.20-3.40); Lymphocytes % (auto) 9.6 %; Mean Corpuscular Hemoglobin 31.5 pg (25.0-34.0); Mean Corpuscular Hgb Conc 35.6 g/dL (32.0-36.0); Mean Corpuscular Volume 88.5 fL (80.0-100.0); Mean Platelet Volume 8.4 fL (9.4-12.4); Monocytes # (auto) 0.83 K/uL (0.11-0.59); Monocytes % (auto) 4.8 %; Neutrophils # (auto) 14.84 K/uL (1.40-6.50); Neutrophils % (auto) 84.9 %; Platelet Count 236 K/uL (130-400); RDW Coefficient of Variation 13.6 % (11.5-14.5); White Blood Count 17.46 K/ul (4.8-10.8)
[2024-06-15 00:29] LABS: Albumin Globulin Ratio 1.2 (0.9-2); Albumin Level 4.3 gm/dl (3.4-5.0); BUN Creatinine Ratio 20.7 (10-20); Bilirubin,Total 0.7 mg/dl (0.2-1.0); Calcium 8.3 mg/dl (8.6-10.3); Creatinine Clr Calc Pharmacy 113.5 ml/min; Globulin 3.7 gm/dl (2.5-4.0); Potassium 3.9 mmol/L (3.5-5.1); Thyroid Stimulating Hormone 5.864 uIu/ml (0.300-4.500); Troponin I High Sensitivity 21.1 pg/ml (0-14)
[2024-06-15 00:57] LABS: Adenovirus PCR Not Detected (NotDetected); Bordetella parapertussis PCR Not Detected (NotDetected); Bordetella pertussis PCR Not Detected (NotDetected); Chlamydia pneumoniae PCR Not Detected (NotDetected); Coronavirus 229E PCR Not Detected (NotDetected); Coronavirus CoV-2 (COVID19)PCR Not Detected (NotDetected); Coronavirus HKU1 PCR Not Detected (NotDetected); Coronavirus NL63 PCR Not Detected (NotDetected); Coronavirus OC43PCR Not Detected (NotDetected); Human Metapneumovirus PCR Not Detected (NotDetected); Influenza A PCR Not Detected (NotDetected); Influenza B PCR Not Detected (NotDetected); Mycoplasma pneumoniae PCR Not Detected (NotDetected); Parainfluenza Virus 1 PCR Not Detected (NotDetected); Parainfluenza Virus 2 PCR Not Detected (NotDetected); Parainfluenza Virus 3 PCR Not Detected (NotDetected); Parainfluenza Virus 4 PCR Not Detected (NotDetected); Respiratory Syncytial VirusPCR Not Detected (NotDetected); Rhinovirus/Enterovirus PCR Not Detected (NotDetected)
--- NOTE | 2024-06-15 01:00 | CT Scan Report ---
EXAM: CT head/brain wo con CLINICAL HISTORY: confusion, nonfocal neuro, bleed? TECHNIQUE: Multiple axial images are obtained from the skull base to the vertex without contrast. CT scan was performed according to ALARA (as low as reasonable achievable). COMPARISON: None. FINDINGS: There is cerebral atrophy. No evidence of space occupying lesion, hemorrhage, edema, mass effect, midline shift, extra axial collection, or hydrocephalus is noted. Basal cisterns are symmetric and normal in size and configuration. There are scattered periventricular hypodensities as can be seen with chronic microvascular ischemic changes. The gamino-white matter differentiation is preserved. Visualized paranasal sinuses and mastoid air cells are well aerated. Orbital contents are within normal limits. Bony structures are intact. IMPRESSION: 1. No evidence of acute intracranial abnormality is demonstrated. 2. Chronic microvascular ischemic changes. 3. Cerebral atrophy. Electronically signed by Vimal Ojeda 06-15-2024 01:00 AM
[2024-06-15 01:11] LABS: T4 Free Thyroxine 1.18 ng/dl (0.61-1.60)
[2024-06-15 01:37] LABS: Appearance Urine Clear (Clear); Bacteria Urine Automated None Seen (None Seen); Bilirubin Urine Negative (Negative); Blood Urine Negative (Negative); Cast Urine Automated 0-2 /lpf (0-2); Color Urine Yellow; Epithelial Cell Urine Auto 0-2 /hpf (0-2); Glucose Urine UA 2+ (Negative); Ketones Urine 1+ (Negative); Leukocyte Esterase Urine Negative (Negative); Nitrite Urine Negative (Negative); Protein Urine 1+ (Negative); Specific Gravity Urine 1.014 (1.000-1.030); Urobilinogen Urine Negative (Negative); WBC Urine Automated 0-5 /hpf (0-5)
--- OUTSIDE RECORDS SUMMARY | 2024-06-15 02:50 | External Medical Summary | Summary of Care ---
Author Name Unknown Organization [facility] Address [address] [place] [address] Phone [phone] Care Team Providers Care Hand Leather Trimmer Name Role Phone Edel Clay MD Primary Care Provide r Reason for Visit * Reason Onset Date Comments Precert Future 06/09/2024 Zepzelca Encounter Details Date Type Department Care Team (Late st Contact Info) Description 06/09/2024 Telephone Hematology/Oncology [facility] [place] [address] [place] [address] Sukhjinder Faria [facility] [address] [facility] [address] Precert Future (Zepzelca) Allergies Active Allergy Reactions Criticality Noted Date Comments Clindamycin Hives 08/26/2014 Codeine 10/25/2011 "Stupor", drowsy Other Allergy (See Comments) 024 Perfumes, hairspray, candles, etc. Sinus infections, headaches, very sensitive. Penicillins 01/30/2006 Hives ans swelling Sulfa Antibiotics 06/29/2010 Sick to her stomach documented as of this encounter (statuses as of 06/14/2024) Medications OMEGA-3 FATTY ACIDS 1000 MG PO [...] as of this encounter (statuses as of 06/14/2024) Active Problems Problem Noted Date Diagnosed Date [...] as of this encounter (statuses as of 06/14/2024) Resolved Problems Problem Noted Date Diagnosed Date [...] 07/18/2008 06/01/2019 Overview (07/31/2009): thyroglobulin antibody >3000 [id number]AR[facility]INE 08/19/200608/10 Overview (08/25/2009): Renamed Per Clinical Trials Billing Project. Pt is a participant in the [facility] (Consortium of Rheumatology Researchers of [facility]) national data collection study. For further information please call Dr Temo Castaneda or Kim Ríos, RN, CCRC at [phone] [facility] RESEARCH OTHER*[id number] 08/19/2006 11/06/2009 Overview (08/25/2009): Renamed Per Clinical Trials Billing Project. Pt is a participant in the [facility] (Consortium of Rheumatology Researchers of [place]) national data collection study. For further information please call Dr Temo Castaneda or Kim Ríos, RN, CCRC at [phone] Arthritis, rheumatoid 07/01/20062016 Abnormal blood chemistry 05/02/2006 [...] as of this encounter (statuses as of 06/14/2024) Immunizations Name Administration Dates Next Due COVID-19 [...] Telephone Encounter - Mar Murrell OSA - 06/14/2024 10:10 AM EST Left message * Telephone Encounter - Marcela Orellana RN - 06/14/2024 8:41 AM EST Patient admitted 06/11- 06/13 with weakness, N/V, hypokalemia, hyponatremia, hypomagnesemia, possible pneumonia. Started on magnesium and potassium supplements as well as amlodipine and coreg for high BP. Discharged on cefdinir and doxycycline x5 more days. Scheduling: please call patient to schedule for either the end of this week or sometime next week - labs "CBCd, CMP, CK"- can be day of or day prior - follow up with provider- Dr Faria or NKECHI - 2 hour appt "Caprice clark" (Bienvenido) Thanks! * Telephone Encounter - Marcela Orellana RN - 06/11/2024 3:36 PM EST Patient went to ED- will need to follow admission to have treatment scheduled. * Telephone Encounter - Marcela Orellana RN - 06/10/2024 12:04 PM EST Referral entered. Jordon: please advise if/ when eduardo will be available. Thanks! * Telephone Encounter [...] Pulmonary Medicine, [facility] [address] [facility] [place] [address] Eloy Pond MD [address] [place] [address] 09/13/2024 3:00 PM EDT Office Visit Rheumatology [address] [place] [phone] Maile Wallace CRNP [address] [place] [address] [place] [address] Scheduled Orders Name Type Priority Associated Diagnoses [...] Occurrences starting 06/09/2024 until 06/09/2025, 1 completed Health Maintenance Due Date Last Done Comments [...] 05/19/2020, 10/29/2011, 10/25/2011, Additional history exists TSH 06/11/2025 06/11/2024, 05/13, 05/20/2024, Additional history exists DTap/Tdap Vaccines (4 - [...] encounter Medical Devices Implanted Type Area Manager Cable Device Identifier Shelf Expiration Date Model / Serial / Lot Port Implant [id number] Poly Cath - [id number] Implanted:Qty : 1 on 12/31/2023 by Sin Burroughs MD at [facility] Right: Chest CR BARD : PERIPHERAL VASCULAR [id number] 10/09/2024 [id number] / / [id number] documented as of this encounter Results * (ABNORMAL) CK (06/11/2024 1:36 PM EST) Pathologist [facility] CK 236(H) 26 - 192 U/L 06/12/2024 1:17 AM EST [facility] [place] Venous blood specimen / Unknown Venipuncture / Unknown 06/11/2024 1:36 PM EST 06/11/2024 1:36 PM EST Sukhjinder Faria MD LAB BLOOD ORDERABLES Final Res ult [facility] [place] [address] [place] [address] * (ABNORMAL) COMPREHENSIVE METABOLIC PANEL (06/11/2024 1:36 PM EST) Pathologist [facility] BUN 13 6 - 20 mg/dL 06/11/2024 2:22 PM EST [facility] 56-02 CREATININE 0.7 0.5 - 1.0 mg/dL 06/11/2024 2:22 PM EST [facility] 56-02 EGFR >90 >=60 mL/min 06/11/2024 2:22 PM EST [facility] 56-02 Comment:eGFR is calculated b ased on the CKD-EPI 2020 equation. SODIUM 127(L) 135 - 146 mmol/L 06/11/2024 2:22 PM EST [facility] 56-02 POTASSIUM 3.1(L) 3.5 - 5.1 mmol/L 06/11/2024 2:22 PM EST [facility] 56-02 CHLORIDE 87(L) 98 - 107 mmol/L 06/11/2024 2:22 PM EST [facility] 56- CO2 26 22 - 32 mmol/L 06/11/2024 2:22 PM EST [facility] 56- ANION GAP 14 7 - 15 mmol/L 06/11/2024 2:22 PM EST [facility] 56 GLUCOSE 175(H) 70 - 120 mg/dL 06/11/2024 2:22 PM EST [facility] 56- Albumin 4.3 3.8 - 5.0 g/dL 06/11/2024 2:22 PM EST [facility] 56- AST 36(H) 10 - 35 U/L 06/11/2024 2:22 PM EST [facility] 56 Alkaline Phosphatase 80 35 - 130 U/L 06/11/2024 2:22 PM [facility] 56 Bilirubin, Total 0.5 <=1.2 mg/dL 06/11/2024 2:22 PM EST [facility] 56 CALCIUM 10.3(H) 8.4 - 10.2 mg/dL 06/11/2024 2:22 PM [facility] 56 Protein 7.7 6.0 - 8.3 g/dL 06/11/2024 2:22 PM EST [facility] 56- ALT 31 10 - 35 U/L 06/11/2024 2:22 PM [facility] 56 Blood Venous blood specimen / Unknown Venipuncture / Unknown 06/11/2024 1:36 PM EST 06/11/2024 1:36 PM EST us Sukhjinder Faria MD LAB BLOOD ORDERABLES Final Res ult [facility] [address]- [address] [place] [address] documented in this encounter Visit Diagnoses Diagnosis Small cell lung cancer, right (HCC)- Primary 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
--- OUTSIDE RECORDS SUMMARY | 2024-06-15 02:50 | External Medical Summary | Summary of Care ---
Author Name Unknown Organization [facility] Address [address] [place] [address] Phone [phone] Care Team Providers Care Neonatal Doctor Name Role Phone Edel Clay MD Primary Care Provide r Reason for Visit * Reason Onset Date Comments Precert Future 06/09/2024 Zepzelca Encounter Details Date Type Department Care Team (Late st Contact Info) Description 06/09/2024 Telephone Hematology/Oncology [facility] [place] [address] [place] [id number] Sukhjinder Faria MD [address] [facility] [address] Precert Future (Zepzelca) Allergies Active Allergy Reactions [...] 07/18/2008 06/01/2019 Overview (07/31/2009): thyroglobulin antibody >3000 [id number] 08/19/200608/10 Overview (08/25/2009): Renamed Per Clinical Trials Billing Project. Pt is a participant in the [facility] (Consortium of Rheumatology Researchers of [facility]) national data collection study. For further information please call Dr Temo Castaneda or Kim Ríos, RN, CCRC at [phone] [facility] RESEARCH OTHER*[id number] 08/19/2006 11/06/2009 Overview (08/25/2009): Renamed Per Clinical Trials Billing Project. Pt is a participant in the [facility] (Consortium of Rheumatology Researchers of [place]) national data collection study. For further information please call Dr Temo Castaneda or Kim Ríos, RN, CCRC at [phone] Arthritis, rheumatoid 07/01/20062016 Abnormal blood chemistry 05/02/2006 [...] 3:00 PM EST Office Visit Pulmonary Medicine, [facility] [address] [place] [address] Eloy Pond MD [address] [place] [address] 09/13/2024 3:00 PM EDT Office Visit Rheumatology [address] [place] [phone] Maile Wallace CRNP [address] [place] [address] [place] [address] Scheduled Orders Name Type Priority Associated Diagnoses [...] this encounter Medical Devices Implanted Type Area Station Agent Device Identifier Shelf Expiration Date Model / Serial / Lot Port Implant [id number] Poly Cath - [id number] Implanted:Qty : 1 on 12/31/2023 by Sin Burroughs MD at [facility] Right: Chest CR BARD : PERIPHERAL VASCULAR [id number] 10/09/2024 [id number] / / [id number] documented as of this encounter Results * (ABNORMAL) CK (06/11/2024 1:36 PM EST) Pathologist [facility] CK 236(H) 26 - 192 U/L 06/12/2024 1:17 AM EST [place] [facility] [place] Venous blood specimen / Unknown Venipuncture / Unknown 06/11/2024 1:36 PM EST 06/11/2024 1:36 PM EST Sukhjinder Faria MD LAB BLOOD ORDERABLES Final Res ult [place] [facility] [place] [address] [place] [address] * (ABNORMAL) COMPREHENSIVE METABOLIC PANEL (06/11/2024 1:36 PM EST) Pathologist [facility] BUN 13 6 - 20 mg/dL 06/11/2024 2:22 PM EST LAB[facility]ATORY [facility]-02 CREATININE 0.7 0.5 - 1.0 mg/dL 06/11/2024 2:22 PM EST [facility] [place] [facility]-02 EGFR >90 >=60 mL/min 06/11/2024 2:22 PM EST [facility] 56-02 Comment:eGFR is calculated b ased on the CKD-EPI 2020 equation. SODIUM 127(L) 135 - 146 mmol/L 06/11/2024 2:22 PM EST [facility] 56-02 POTASSIUM 3.1(L) 3.5 - 5.1 mmol/L 06/11/2024 2:22 PM EST [facility] 56-02 CHLORIDE 87(L) 98 - 107 mmol/L 06/11/2024 2:22 PM EST [facility] 56- CO2 26 22 - 32 mmol/L 06/11/2024 2:22 PM EST [facility] 56- ANION GAP 14 7 - 15 mmol/L 06/11/2024 2:22 PM EST [facility] 56 GLUCOSE 175(H) 70 - 120 mg/dL 06/11/2024 2:22 PM EST [facility] 56- Albumin 4.3 3.8 - 5.0 g/dL 06/11/2024 2:22 PM EST [facility] 56- AST 36(H) 10 - 35 U/L 06/11/2024 2:22 PM EST [facility] 56 Alkaline Phosphatase 80 35 - 130 U/L 06/11/2024 2:22 PM [facility] 56 Bilirubin, Total 0.5 <=1.2 mg/dL 06/11/2024 2:22 PM EST [facility] 56 CALCIUM 10.3(H) 8.4 - 10.2 mg/dL 06/11/2024 2:22 PM [facility] 56 Protein 7.7 6.0 - 8.3 g/dL 06/11/2024 2:22 PM EST [facility] 56- ALT 31 10 - 35 U/L 06/11/2024 2:22 PM [facility] 56 Blood Venous blood specimen / Unknown Venipuncture / Unknown 06/11/2024 1:36 PM EST 06/11/2024 1:36 PM EST us Sukhjinder Faria MD LAB BLOOD ORDERABLES Final Res ult [facility] [address]- [address] [place] [address] documented in this encounter Visit Diagnoses Diagnosis Small cell lung cancer, right (HCC)- Primary 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
--- OUTSIDE RECORDS SUMMARY | 2024-06-15 02:51 | External Medical Summary ---
Author Name Unknown Address Unknown Organization K01:[facility] [address] [place] [address] Laboratory Report Ordering Provider Test Date Status JUAQUIN JOHNSON 06/11/2024 13:36:56 Final Observation Date Value Abnormality Reference (Units ) Status T4, Free 06/11/2024 13:36:56 1.9 Above high normal 0. 9-1.7 (ng/dL) Final Performing Location [facility] - [address] [place] [address]
--- OUTSIDE RECORDS SUMMARY | 2024-06-15 02:51 | External Medical Summary ---
Author Name Unknown Address Unknown Organization K01:LAB[facility]ATORY [facility] - [address] [facility] [address] Laboratory Report Ordering Provider Test Date Status JUAQUIN JOHNSON 06/11/2024 13:36:56 Final Observation Date Value Abnormality Reference (Units ) Status TSH 06/11/2024 13:36:56 5.61 Above high normal 0. 27-4.20 (uIU/mL) Final Performing Location LABORATORY [facility] - [address] [place] [address]
--- OUTSIDE RECORDS SUMMARY | 2024-06-15 02:51 | External Medical Summary ---
Author Name Unknown Address Unknown Organization K01:[facility] - [address] [place] [address] Laboratory Report Ordering Provider Test Date Status JUAQUIN JOHNSON 06/11/2024 13:36:56 Final Observation Date Value Abnormality Reference (Units ) Status CK 06/11/2024 13:36:56 236 Above high normal 26 -192 (U/L) Final Performing Location [facility] [address] [place] [address]
--- NOTE | 2024-06-15 03:14 | XRay Report ---
EXAM: XR chest 1V portable CLINICAL HISTORY: Weakness. TECHNIQUE: An X-ray image of the chest is obtained using an AP projection. COMPARISON: 06/11/2024. FINDINGS: Pulmonary Parenchyma: Inhomogeneous shadowing right perihilar area. No evidence of consolidation, collapse, or focal opacities. No pulmonary nodules are identified. No evidence of pleural effusion or pleural thickening. Heart and Mediastinum: Heart size and shape are normal. No mediastinal widening or masses. Prominent right hilum. Bony Thorax: The bony thorax appears intact without fractures or deformities. Soft Tissues: Soft tissues overlying the chest wall are unremarkable. The tip of the selvin catheter at slightly below the cavoatrial level, this could be projectional/positional. IMPRESSION: Redemonstration of right hilar opacity, possible congested right hilar vasculature/Infiltration with possible right hilar lymphadenopathy. Suggestive for clinical correlation and CT chest if clinically warranted. Electronically signed by Noé Ortega 06-15-2024 03:13 AM
--- NOTE | 2024-06-15 05:28 | History & Physical Report ---
Date of Service June 15, 2024 Assessment & Plan (1) AMS (altered mental status): Plan: 59-year-old female with past med history significant for hyperlipidemia, hypothyroidism, prediabetes, rheumatoid arthritis, recent diagnosis of small cell lung cancer right side November 2023 metastatic to bone and liver status post 1 cycle of chemotherapy as per records was recently in the hospital for electrolyte abnormalities discharged on 06/13/24 comes back again with confusion and found to have hyponatremia. Patient is very confused. Not talking. Hemodynamics are okay. As per ER patient seems to have confusion since 11 AM and worsening throughout the day slowly and brought to the ER. She is able to move all her extremities. Altered mental status CT head is okay Last admission CT chest possible pneumonia Respiratory BioFire negative Has leukocytosis and lactic acid of 2.2. Possible sepsis Sodium 121 Most likely metabolic encephalopathy secondary to possible pneumonia and hyponatremia Will check VBG Empiric cefepime and doxycycline Will follow cultures. 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 Slow correction Nephrology consult for further recommendations Mild elevation troponin Mostly demand ischemia Will follow serial cardiac enzymes Hypertension Amlodipine and Coreg with holding parameters Hypothyroidism On Synthyroid Rheumatoid arthritis Will hold methotrexate Question of being on prednisone History of electrolyte abnormalities Continue potassium and magnesium supplements Will follow labs Anemia Will check stool for Hemoccult Vitamin B12 and folate levels and iron studies Follow labs DVT prophylaxis Lovenox Disposition Telemetry Full code. History of Present Illness Chief Complaint: Altered mental status, hyponatremia Primary Care Provider: Edel Clay MD 59-year-old female with past med history significant for hyperlipidemia, hypothyroidism, prediabetes, rheumatoid arthritis, recent diagnosis of small cell lung cancer right side November 2023 metastatic to bone and liver status post 1 cycle of chemotherapy as per records was recently in the hospital for electrolyte abnormalities discharged on 06/13/24 comes back again with confusion and found to have hyponatremia. Patient is very confused. Not talking. Hemodynamics are okay. As per ER patient seems to have confusion since 11 AM and worsening throughout the day slowly and brought to the ER. She is able to move all her extremities. Past medical history. As mentioned above Past surgical history. Status post bronchoscopy. Cholecystectomy. Left breast lesion excision. Social history. E-cigarettes/vaping. 1 PPD into 40 years. No alcohol use. No drug use. Family history. Mother had stroke. Hypertension. Diabetes. Father had pacemaker. Hypertension. Diabetes. Brother has diabetes, hypertension. Allergies Allergy/AdvReac Type Severity Reaction Status Date / Time Penicillins Allergy Severe HIVES/SWELL Verified 06/15/24 05:23 ING clindamycin Allergy Intermediate Hives Verified 06/15/24 05:24 Sulfa (Sulfonamide AdvReac Mild Nausea Verified 06/15/24 05:23 Antibiotics) codeine AdvReac sleepy Verified 12/23/23 10:19 Home Medications Medication Instructions Recorded Confirmed Type levothyroxine 100 mcg capsule 100 mcg PO DAILY 12/23/23 06/15/24 History multivitamin 1 tab PO DAILY 12/23/23 06/15/24 History omega-3 fatty acids 1,000 mg 1,000 mg PO DAILY 12/23/23 06/15/24 History capsule prochlorperazine maleate 10 mg 10 mg PO Q6H PRN Nausea 12/23/23 06/15/24 History tablet (Compazine) folic acid 1 mg tablet 1 mg PO DAILY 06/11/24 06/15/24 History methotrexate sodium 2.5 mg tablet 15 mg PO WK 06/11/24 06/15/24 History amlodipine 5 mg tablet (Norvasc) 5 mg PO QAM 30 days #30 tabs 06/13/24 06/15/24 Rx carvedilol 6.25 mg tablet 6.25 mg PO BIDM 30 days #60 tabs 06/13/24 06/15/24 Rx cefdinir 300 mg capsule 300 mg PO BID 5 days #10 caps 06/13/24 06/15/24 Rx doxycycline hyclate 100 mg capsule 100 mg PO BID 5 days #10 caps 06/13/24 06/15/24 Rx magnesium oxide 400 mg (241.3 mg 400 mg PO BID #60 tabs 06/13/24 06/15/24 Rx magnesium) tablet potassium chloride 20 mEq 20 meq PO BID 30 days #60 tabs 06/13/24 06/15/24 Rx tablet,extended release(part/cryst) Past Med/Surg History Problem List (Updated 06/15/24 @ 05:34 by Dexter Dallas MD) AMS (altered mental status) Delirium due to general medical condition (Acute) Acute hyponatremia (Acute) Altered mental status (Acute) Elevated procalcitonin (Acute) Acute urinary retention (Acute) Acute UTI (urinary tract infection) (Acute) Acute hyponatremia (Acute) Hypomagnesemia (Acute) Acute hypokalemia (Acute) Generalized weakness (Acute) Small cell lung cancer, right upper lobe (Chronic) Mixed dyslipidemia Medical History (Updated 06/15/24 @ 05:34 by Dexter Dallas MD) Kidney stone Prediabetes Black hairy tongue Lung cancer Diagnosed 12/04/23;Small cell lung cancer, right Thyroid goiter Ovarian cyst Hypothyroidism Rheumatoid arthritis Allergic rhinitis Surgical History (Updated 12/23/23 @ 10:13 by Alise Hunter, RN) Status post bronchoscopy 12/04/23 Hx of cholecystectomy History of surgery Excision left breast lesion - benign Family History (Updated 12/23/23 @ 13:23 by Alise Hunter, RN) Mother , 69yo Stroke Hypertension Diabetes Father Pacemaker Hypertension Diabetes Brother Diabetes Hypertension Son MVA (motor vehicle accident) Social History (Updated 12/23/23 @ 13:25 by Alise Hunter, RN) Smoking Status: Former smoker Tobacco Type: Cigarettes Cigarettes Per Day: 1 PPD x 40yrs; Second Hand Exposure: No; Hx Alcohol Use: No Hx Substance Use: No Preferred Language: Luxembourger Communication Ability: Unable Visual Impairment: No Limitations Hearing Ability: Normal Spa Host Required: No Beliefs That Will Affect Care: None marital status: Current Living Situation: Spouse current occupational status: employed 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 Head- atraumatic Eyes- PERRL. ENT- oropharynx dry Neck- supple, no JVD. Lungs- clear to auscultation no wheezing or crackles Heart- regular rhythm; no murmur, no gallop. Abdomen- normal bowel sounds, soft, nontender, no distension Extremities- no pretibial edema, no erythema seen. Neuro- Confused and not talking ; PERRL, no facial palsy; moves extremities Results & Data Results & Data Vital Signs (Past 12 Hours) Vital Signs Temp Pulse Pulse Resp BP BP Pulse Ox 06/15/24 05:11 117 H 18 146/89 H 97 06/15/24 03:57 75 18 180/88 H 96 06/15/24 03:37 70 06/15/24 02:22 81 16 197/76 H 96 06/15/24 00:35 99 06/15/24 00:34 88 22 168/100 H 99 06/15/24 00:33 79 98 06/14/24 23:36 36.0 C L 74 20 211/116 H 99 06/14/24 23:20 99 H O2 Del Method 06/15/24 05:11 06/15/24 03:57 06/15/24 03:37 06/15/24 02:22 06/15/24 00:35 Room Air 06/15/24 00:34 06/15/24 00:33 06/14/24 23:36 06/14/24 23:20 Diagnostic Findings Laboratory Results WBC 17.46 K/ul (4.8-10.8) H 06/14/24 23:28 RBC 4.60 M/uL (4.20-5.40) 06/14/24 23:28 Hgb 14.5 g/dl (12.0-16.0) 06/14/24 23:28 Hct 40.7 % (37.0-47.0) 06/14/24 23:28 MCV 88.5 fL (80.0-100.0) 06/14/24 23:28 MCH 31.5 pg (25.0-34.0) 06/14/24 23:28 MCHC 35.6 g/dL (32.0-36.0) 06/14/24 23:28 RDW Std Deviation 44.0 fL (36.4-46.3) 06/14/24 23:28 RDW Coeff of Fifi 13.6 % (11.5-14.5) 06/14/24 23:28 Plt Count 236 K/uL (130-400) 06/14/24 23:28 MPV 8.4 fL (9.4-12.4) L 06/14/24 23:28 Immature Gran % (Auto) 0.5 % 06/14/24 23: Neut % (Auto) 84.9 % 06/14/24 23: Lymph % (Auto) 9.6 % 06/14/24 23: [place] % (Auto) 4.8 % 06/14/24 23: Eos % (Auto) 0.1 % 06/14/24 23: Baso % (Auto) 0.1 % 06/14/24: Neut # (Auto) 14.84 K/uL (1.40-6.50) H 06/14/24 23: Lymph # (Auto) 1.68 K/uL (1.20-3.40) 06/14/24: [place] # (Auto) 0.83 K/uL (0.11-0.59) H 06/14/24: Eos # (Auto) 0.02 K/uL (0.00-0.50) 06/14/24: Baso # (Auto) 0.01 K/uL (0.00-0.20) 06/14/24 23: Immature Gran # (Auto) 0.08 K/uL (0.01-0.20) 06/14/24: Sodium 121 mmol/L (136-145) L 06/14/24: Potassium 3.9 mmol/L (3.5-5.1) D 06/14/24: Chloride 88 mmol/L (98-107) L 06/14/24: Carbon Dioxide 23 mmol/L (21-32) 06/14/24: Anion Gap 10 (3-11) 06/14/24: BUN 12 mg/dl (6-23) 06/14/24: Creatinine 0.58 mg/dl (0.6-1.2) L 06/14/24: Est Cr Clr Drug Dosing 113.5 ml/min 06/14/24 23: eGFR 105.48 06/14/24: BUN/Creatinine Ratio 20.7 (10-20) H 06/14/24 23: Glucose 164 mg/dl (70-99(Fasting)) H 06/14/24 23: POC Glucose 172 mg/dl (70-99) H 06/14/24 23:28 Lactate 2.2 mmol/L (0.4-2.0) H* 06/15/24 01:15 Calcium 8.3 mg/dl (8.6-10.3) L 06/14/24 23:28 Total Bilirubin 0.7 mg/dl (0.2-1.0) 06/14/24 23:28 AST 33 U/L (13-39) 06/14/24 23:28 ALT 40 U/L (7-52) 06/14/24 23:28 Alkaline Phosphatase 74 U/L (34-104) 06/14/24 23:28 Troponin I High Sens 25.0 pg/ml (0-14) H 06/15/24 01:15 Total Protein 8.0 gm/dl (6.0-8.3) 06/14/24 23:28 Albumin 4.3 gm/dl (3.4-5.0) 06/14/24 23: Globulin 3.7 gm/dl (2.5-4.0) 06/14/24 23:28 Albumin/Globulin Ratio 1.2 (0.9-2) 06/14/24 23:28 TSH 5.864 uIu/ml (0.300-4.500) H 06/14/24 23:28 Free T4 1.18 ng/dl (0.61-1.60) 06/14/24 23:28 Urine Color Yellow 06/15/24 01:15 Urine Appearance Clear (Clear) 06/15/24 01:15 Urine pH 8.0 (4.5-7.5) H 06/15/24 01:15 Ur Specific [place] 1.014 (1.000-1.030) 06/15/24 01:15 Urine Protein 1+ (Negative) H 06/15/24 01:15 Urine Glucose (UA) 2+ (Negative) H 06/15/24 01:15 Urine Ketones 1+ (Negative) H 06/15/24 01:15 Urine Blood Negative (Negative) 06/15/24 01:15 Urine Nitrite Negative (Negative) 06/15/24 01:15 Urine Bilirubin Negative (Negative) 06/15/24 01:15 Urine Urobilinogen Negative (Negative) 06/15/24 01:15 Ur Leukocyte Esterase Negative (Negative) 06/15/24 01:15 Urine WBC (Auto) 0-5 /hpf (0-5) 06/15/24 01:15 Urine RBC (Auto) 6-10 /hpf (0-2) H 06/15/24 01:15 U Hyaline Cast (Auto) 0-2 /lpf (0-2) 06/15/24 01:15 U Epithel Cells (Auto) 0-2 /hpf (0-2) 06/15/24 01:15 Urine Bacteria (Auto) None Seen (None Seen) 06/15/24 01:15 Adenovirus (PCR) Not Detected (NotDetected) 06/14/24 23:42 B. pertussis DNA (PCR) Not Detected (NotDetected) 06/14/24 23:42 B.parapertussis DNA PCR Not Detected (NotDetected) 06/14/24 23:42 C. pneumoniae DNA (PCR) Not Detected (NotDetected) 06/14/24 23:42 Coronavirus OC43 (PCR) Not Detected (NotDetected) 06/14/24 23:42 Coronavirus HKU1 (PCR) Not Detected (NotDetected) 06/14/24 23:42 Coronavirus 229E (PCR) Not Detected (NotDetected) 06/14/24 23:42 SARS-CoV-2 (PCR) Not Detected (NotDetected) 06/14/24 23:42 Coronavirus NL63 (PCR) Not Detected (NotDetected) 06/14/24 23:42 Human Metapneumovir PCR Not Detected (NotDetected) 06/14/24 23:42 Influenza Type A (PCR) Not Detected (NotDetected) 06/14/24 23:42 Influenza Type B (PCR) Not Detected (NotDetected) 06/14/24 23:42 M. pneumoniae (PCR) Not Detected (NotDetected) 06/14/24 23:42 Parainfluenza 1 (PCR) Not Detected (NotDetected) 06/14/24 23:42 Parainfluenza 2 (PCR) Not Detected (NotDetected) 06/14/24 23:42 Parainfluenza 3 (PCR) Not Detected (NotDetected) 06/14/24 23:42 Parainfluenza 4 (PCR) Not Detected (NotDetected) 06/14/24 23:42 RSV (PCR) Not Detected (NotDetected) 06/14/24 23:42 Entero/Rhino (PCR) Not Detected (NotDetected) 06/14/24 23:42 Impressions Chest X-Ray 06/14/24 23:28 EXAM: XR chest 1V portable CLINICAL HISTORY: Weakness. TECHNIQUE: An X-ray image of the chest is obtained using an AP projection. COMPARISON: 06/11/2024. FINDINGS: Pulmonary Parenchyma: Inhomogeneous shadowing right perihilar area. No evidence of consolidation, collapse, or focal opacities. No pulmonary nodules are identified. No evidence of pleural effusion or pleural thickening. Heart and Mediastinum: Heart size and shape are normal. No mediastinal widening or masses. Prominent right hilum. Bony Thorax: The bony thorax appears intact without fractures or deformities. Soft Tissues: Soft tissues overlying the chest wall are unremarkable. The tip of the selvin catheter at slightly below the cavoatrial level, this could be projectional/positional. IMPRESSION: Redemonstration of right hilar opacity, possible congested right hilar vasculature/Infiltration with possible right hilar lymphadenopathy. Suggestive for clinical correlation and CT chest if clinically warranted. Electronically signed by Noé Ortega 06-15-2024 03:[address] 06/14/24 23:29 EXAM: CT head/brain wo con CLINICAL HISTORY: confusion, nonfocal neuro, bleed? TECHNIQUE: Multiple axial images are obtained from the skull base to the vertex without contrast. CT scan was performed according to ALARA (as low as reasonable achievable). COMPARISON: None. FINDINGS: There is cerebral atrophy. No evidence of space occupying lesion, hemorrhage, edema, mass effect, midline shift, extra axial collection, or hydrocephalus is noted. Basal cisterns are symmetric and normal in size and configuration. There are scattered periventricular hypodensities as can be seen with chronic microvascular ischemic changes. The gamino-white matter differentiation is preserved. Visualized paranasal sinuses and mastoid air cells are well aerated. Orbital contents are within normal limits. Bony structures are intact. IMPRESSION: 1. No evidence of acute intracranial abnormality is demonstrated. 2. Chronic microvascular ischemic changes. 3. Cerebral atrophy. Electronically signed by Vimal Ojeda 06-15-2024 01:00 AM ECG Additional Comments: EG. Sinus rhythm with marked sinus arrhythmia with rate of 88. Nonspecific ST segment changes in anterior leads. QTc 462. Code Status & VTE Plan VTE Prophylaxis Plan VTE Prophylaxis will be ordered: Yes
[2024-06-15] MEDS: SODIUM CHLORIDE 0.9% 1,000 ML IV SCH (05:31)
[2024-06-15] MEDS ORDERED: NITROGLYCERIN SL 0.4 MG/TAB TAB SL PRN (05:54)
[2024-06-15] MEDS: CEFEPIME 2000MG 2,000 MG/20 ML SYR IV STA (06:17)
[2024-06-15] MEDS: DOXYCYCLINE HYCLATE 100 MG in DEXTROSE 5% MINI-B 100 ML IV STA (06:21)
[2024-06-15 06:25] LABS: Base Excess VBG -0.4 mEq/L; HCO3 VBG 23 mmol/L; Oxygen Saturation VBG < 60.0 %; PCO2 VBG 33 mmHg (38-50); PO2 VBG 29 mmHg; pH VBG 7.45 (7.36-7.41)
[2024-06-15 06:29] LABS: Basophils # (auto) 0.02 K/uL (0.00-0.20); Basophils % (auto) 0.1 %; Eosinophils # (auto) 0.04 K/uL (0.00-0.50); Eosinophils % (auto) 0.2 %; Hematocrit (blood only) 39.2 % (37.0-47.0); Hemoglobin 14.2 g/dl (12.0-16.0); Immature Granulocytes % (auto) 0.6 %; Lymphocytes # (auto) 1.51 K/uL (1.20-3.40); Lymphocytes % (auto) 8.4 %; Mean Corpuscular Hemoglobin 32.1 pg (25.0-34.0); Mean Corpuscular Hgb Conc 36.2 g/dL (32.0-36.0); Mean Corpuscular Volume 88.5 fL (80.0-100.0); Mean Platelet Volume 8.5 fL (9.4-12.4); Monocytes # (auto) 1.21 K/uL (0.11-0.59); Monocytes % (auto) 6.7 %; Platelet Count 198 K/uL (130-400); RDW Coefficient of Variation 13.5 % (11.5-14.5); RDW Standard Deviation 43.8 fL (36.4-46.3); Red Blood Count 4.43 M/uL (4.20-5.40); White Blood Count 18.08 K/ul (4.8-10.8)
[2024-06-15 06:42] LABS: Calcium 8.8 mg/dl (8.6-10.3); Creatinine Clr Calc Pharmacy 113.5 ml/min; Magnesium 1.6 mg/dl (1.7-2.4); Potassium 3.9 mmol/L (3.5-5.1)
[2024-06-15] MEDS ORDERED: VANCOMYCIN CONSULT ACTIVE PRN (08:45)
[2024-06-15] MEDS: carvediloL 6.25 MG TAB PO SCH (09:15)
[2024-06-15] MEDS: LEVOTHYROXINE SODIUM 100 MCG TABLET PO SCH (09:15)
[2024-06-15] MEDS: VANCOMYCIN HCL 2,250 MG in SODIUM CHLORIDE 0.9% 500 ML IV ONE (09:18)
--- NOTE | 2024-06-15 09:18 | Electrocardiogram Report ---
Test Reason : Blood Pressure : */* mmHG Vent. Rate : 88 BPM Atrial Rate : 88 BPM P-R Int : 144 ms QRS Dur : 106 ms QT Int : 382 ms P-R-T Axes : 49 61 62 degrees QTcB Int : 462 ms Sinus rhythm with marked sinus arrhythmia Minimal voltage criteria for LVH, may be normal variant ( Sokolow-Robertson ) Borderline ECG When compared with ECG of 11-Jun-2024 15:31, T wave inversion no longer evident in Inferior leads T wave inversion no longer evident in Anterolateral leads Confirmed by Leif Benjamin ([id number]) on 06/15/2024 9:18:34 AM Referred By: REFERRED SELF Confirmed By: Leif Benjamin
[2024-06-15] MEDS: THIAMINE HCL 200 MG in SODIUM CHLORIDE 0.9% 50 ML IV SCH (09:57)
[2024-06-15] MEDS: FOLIC ACID 1 MG TAB PO SCH (10:00)
[2024-06-15] MEDS: POTASSIUM CHLORIDE CRTAB 20 MEQ TABCR PO SCH ×2 (10:00→17:22)
[2024-06-15] MEDS: MULTIVITAMIN TAB PO SCH (10:00)
[2024-06-15] MEDS: MAGNESIUM OXIDE 400 MG TAB PO SCH (10:00)
[2024-06-15] MEDS: amLODIPine BESYLATE 5 MG TAB PO SCH (10:00)
[2024-06-15] MEDS: ENOXAPARIN INJ 40 MG/0.4 ML SYR SQ SCH (10:28)
[2024-06-15] MEDS: HALOPERIDOL LACTATE 5 MG/ML 1 ML VIAL ONE (12:32)
[2024-06-15] MEDS: HALOPERIDOL LACTATE 5 MG/ML 1 ML VIAL IM STA (12:33)
--- NOTE | 2024-06-15 12:37 | Nephrology Consultation ---
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 Even though she has not had much solid food to eat she was still drinking and her blood pressure is high. There is no evidence of volume depletion. Urine osmolarity urine sodium consistent with the SIADH. she is not in a position to take urea as she is essentially unresponsive at this time. given this we will continue normal saline at 100 mL/hour. But we also need to lower the urine osmolarity and we will achieve that by using Lasix for free water diuresis. hopefully with a combination of normal saline and IV Lasix we will be able to raise the serum sodium. But since the underlying diagnosis is small-cell lung cancer there is no guarantee sodium will actually increase. check BMP every 8 hours to monitor serum sodium (2) Small cell lung cancer, right upper lobe: underlying cause and very common to have hyponatremia in the situation (3) AMS (altered mental status): she is in significant altered mental status. However I doubt this is the result of hyponatremia. Even during her previous admission her sodium was low and not massively different than what we have now. I do not see the need of giving hypertonic saline Plan total time spent 62 minutes. plan was discussed with primary team History of Present Illness Reason for Consultation: Hyponatremia Attending Physician: Brown Ramon MD History of Present Illness 59/F recent diagnosis of small cell lung cancer right side November 2023 metastatic to bone and liver status post 1 cycle of chemotherapy as per records was recently in the hospital for electrolyte abnormalities discharged on 06/13/24. she also has hyperlipidemia, hypothyroidism, prediabetes, rheumatoid arthritis on chronic methotrexate . she comes back again with confusion and found to have hyponatremia. na 124. sodium was low during this previous admission also ranging from 126-133 and was 129 on the discharge. patient is sleeping/unresponsive and not able to give any history at all. was present at the bedside and as per patient is getting progressively weak she is not eating any solid food. She does try to drink some liquid. she is also having major issues with balance and has had many falls at home. denies nausea vomiting diarrhea chest pain fever chills cough shortness of breath since admission she has received some normal saline but sodium has not changed. At this point patient is not in a stage where she can take solid food review of systems as detailed in HPI. Unable to get any history from the patient. Some history obtained from the at bedside Physical Exam Physical Exam: General- unresponsive. did not open eyes and did not answer any questions HEENT- oropharynx dry neck is supple no JVD Lungs- clear to auscultation no wheezing or crackles Heart- regular rhythm; no murmur, no gallop. Abdomen- soft, nontender, no distension Extremities- no edema, Allergies Allergy/AdvReac Type Severity Reaction Status Date / Time Penicillins Allergy Severe HIVES/SWELL Verified 06/15/24 05:23 ING clindamycin Allergy Intermediate Hives Verified 06/15/24 05:24 Sulfa (Sulfonamide AdvReac Mild Nausea Verified 06/15/24 05:23 Antibiotics) codeine AdvReac sleepy Verified 12/23/23 10:19 Home Medications Medication Instructions Recorded Confirmed Type levothyroxine 100 mcg capsule 100 mcg PO DAILY 12/23/23 06/15/24 History multivitamin 1 tab PO DAILY 12/23/23 06/15/24 History omega-3 fatty acids 1,000 mg 1,000 mg PO DAILY 12/23/23 06/15/24 History capsule prochlorperazine maleate 10 mg 10 mg PO Q6H PRN Nausea 12/23/23 06/15/24 History tablet (Compazine) folic acid 1 mg tablet 1 mg PO DAILY 06/11/24 06/15/24 History methotrexate sodium 2.5 mg tablet 15 mg PO WK 06/11/24 06/15/24 History amlodipine 5 mg tablet (Norvasc) 5 mg PO QAM 30 days #30 tabs 06/13/24 06/15/24 Rx carvedilol 6.25 mg tablet 6.25 mg PO BIDM 30 days #60 tabs 06/13/24 06/15/24 Rx cefdinir 300 mg capsule 300 mg PO BID 5 days #10 caps 06/13/24 06/15/24 Rx doxycycline hyclate 100 mg capsule 100 mg PO BID 5 days #10 caps 06/13/24 06/15/24 Rx magnesium oxide 400 mg (241.3 mg 400 mg PO BID #60 tabs 06/13/24 06/15/24 Rx magnesium) tablet potassium chloride 20 mEq 20 meq PO BID 30 days #60 tabs 06/13/24 06/15/24 Rx tablet,extended release(part/cryst) Patient History Medical History Kidney stone Prediabetes Black hairy tongue Lung cancer Diagnosed 12/04/23;Small cell lung cancer, right Thyroid goiter Ovarian cyst Hypothyroidism Rheumatoid arthritis Allergic rhinitis Surgical History Status post bronchoscopy 12/04/23 Hx of cholecystectomy History of surgery Excision left breast lesion - benign Family History Mother , 69yo Stroke Hypertension Diabetes Father Pacemaker Hypertension Diabetes Brother Diabetes Hypertension Son MVA (motor vehicle accident) Social History Smoking Status: Former smoker Tobacco Type: Cigarettes Cigarettes Per Day: 1 PPD x 40yrs; Second Hand Exposure: No; Hx Alcohol Use: No Hx Substance Use: No Preferred Language: Swedish Communication Ability: Unable Visual Impairment: No Limitations Hearing Ability: Normal 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 Beliefs That Will Affect Care: None marital status: Current Living Situation: Spouse current occupational status: employed 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 How many Children do You have: 0 Other Information That Helps Us Care for You: No Feels Safe at Home: Yes Safety Concerns: Feels Safe At This Time Diet: regular caffeine: Yes (3 cups/day) during the past year weight has: remained stable Assistive Devices: Cane Results & Data Vital Signs (Past 12 Hours) Vital Signs Temp Pulse Pulse Resp BP Pulse Ox Pulse Ox 06/15/24 12:32 36.8 C 120 H 24 177/110 H 97 06/15/24 08:52 102 H 16 178/96 H 98 06/15/24 06:54 85 06/15/24 06:40 88 18 176/123 H 98 06/15/24 06:40 99 06/15/24 06:01 36.9 C 97 H 20 146/89 H 97 06/15/24 05:11 117 H 18 146/89 H 97 06/15/24 03:57 75 18 180/88 H 96 06/15/24 03:37 70 06/15/24 02:22 81 16 197/76 H 96 O2 Del Method O2 Del Method O2 Flow Rate 02/04/25 12:32 Room Air 06/15/24 08:52 Room Air 06/15/24 06:54 06/15/24 06:40 Room Air 06/15/24 06:40 Room Air 0 06/15/24 06:01 Room Air 06/15/24 05:11 06/15/24 03:57 06/15/24 03:37 06/15/24 02:22 Laboratory Results previous hospitalization as well as outpatient and this hospitalization labs were all reviewed and included CBC renal panel urine test imaging
[2024-06-15] MEDS: FUROSEMIDE 40 MG/4 ML VIAL IV SCH (12:41)
--- NOTE | 2024-06-15 12:48 | Communication Note ---
Date of Service: June 15, 2024 Patient seen and examined at bedside She continues to be delirious; she does not respond to any questions or queries. She is moving all her extremities. Called her ; reports that patient gradually started to develop altered mental status after she was discharged from the hospital. Serum sodium improved from 121 on presentation to 124; thought likely due to SIADH. Plan to continue on cefepime vancomycin and doxycycline. Await infectious workup including blood culture. EEG ordered but unable to be done as patient was moving Neurology consulted for comanagement given the acute onset of delirium Nephrology also on board for electrolytes abnormalities Will also continue high-dose thiamine given poor oral intake On physical examination Awake, not responding to any questions. Moving all her extremities. Chest; bilateral vesicular breath sound present CVSS1-S2, no murmur Abdomensoft, nontender Neuroagitated; not responding to any questions. Moving all her extremities. No focal deficit present. Full progress note to follow tomorrow
[2024-06-15] MEDS: CEFEPIME 2000MG 2,000 MG/20 ML SYR IV SCH (13:02)
--- NOTE | 2024-06-15 13:13 | Pharmacy Report ---
Pharmacy PK ABX Note - Date of Service June 15, 2024 - Assessment and Plan Assessment 59 year old F receiving vancomycin, cefepime, and doxy empirically, possible pulm source. Recently hospitalized receiving a few doses of ceftriaxone and doxycycline. Per provider note: Patient with recent diagnosis of small cell lung cancer right side November 2023 metastatic to bone and liver status post 1 cycle of chemotherapy. Pertinent microbiologic data includes: negative MRSA Nasal Swab, await bcx to de-escalate vanc per provider. Day # 1 of antimicrobial therapy. Plan Vancomycin * Loading dose: 2250 mg IV x 1 * Maintenance dose: 1250 mg IV every 12 hours * Regimen is predicted to achieve target AUC/ROMAINE of 400-600 mg/L.hr * Level will be ordered is therapy is to continue past 48 hours Pharmacy will continue to follow and will adjust dose/frequency as necessary. Thank you. Pharmacy has transitioned to AUC monitoring for vancomycin. AUC/ROMAINE is the preferred PK/PD target and is associated with decreased risk of nephrotoxicity compared to traditional trough targets.
[2024-06-15] MEDS: LORazepam 2 MG/1 ML VIAL IV STA ×2 (13:29→22:53)
[2024-06-15] MEDS: LORazepam 2 MG/1 ML VIAL ONE (13:29)
[2024-06-15 13:30] LABS: BUN Creatinine Ratio 20.4 (10-20); Calcium 8.4 mg/dl (8.6-10.3); Creatinine Clr Calc Pharmacy 121.9 ml/min; Potassium 3.3 mmol/L (3.5-5.1)
[2024-06-15 13:37] LABS: Troponin I High Sensitivity 30.3 pg/ml (0-14)
--- NOTE | 2024-06-15 14:03 | Communication Note ---
Date of Service: June 15, 2024 Found to have acute urinary retention Zavala catheter was placed; trial of void in 7 to 10 days
--- NOTE | 2024-06-15 14:48 | Neurology Consultation ---
Date of Consultation June 15, 2024 Assessment & Plan (1) AMS (altered mental status): Suspect toxic metabolic encephalopathy in setting of ongoing infection Agree with continued antimicrobial therapy Agree with continued electrolyte monitoring and sodium replacement Recommend MRI brain with and without contrast Recommend continue to monitor mentation Recommend continue frequent neurological assessments Obtain stat CT brain without contrast for any acute neurological decline Continue to monitor/control blood pressure & blood glucose Continue to monitor telemetry closely Continue to monitor renal and hepatic function, keep euvolemic Ok from neurology perspective for VTE prophylaxis PT/OT/SLT to eval and treat Telehealth Consultation Telehealth Information Telehealth Information: I performed this visit using a real-time telehealth connection between my location and the patients location ([facility]). After connecting through interactive tele-video, patient was identified by name and date of and/or wristband check.Patient (or authorized healthcare area representative) was informed that this was a telemedicine visit and it was being conducted confidentially over secure lines. My office door was closed and no one else was present in the room with me.Patient (or authorized healthcare area representative) provided consent to proceed with the visit, expressed an understanding of privacy and security of the telemedicine visit, and gave permission to have a hospital area representative in the room in order to assist with the visit and to conduct portions of the visit, as needed. I informed the patient (or authorized healthcare area representative) that I reviewed their record and presented the opportunity for them to ask any questions regarding the visit today. The patient agreed to participate. History of Present Illness Reason for Consultation: Acute onset of AMS Requesting Physician: Dr. Tristen MD Attending Physician: Brown Ramon MD History of Present Illness 59yo female with significant past medical history of recent metastatic cancer diagnosis last summer- small cell lung CA with mets to bone and liver, also hypothyroidism, RA, hyperlipidemia. Per documentation review, she has undergone chemotherapy at least one cycle. She was recently admitted and discharged on 06/13 but returned last evening with reported confusion and found to be hyponatremic. She has undergone a CT brain without contrast, personally reviewed, revealing no overt evidence of hemorrhage or acute intracranial pathology. I have performed televideo consultation. There is 1:1 at bedside and is present all questions answered. Patient will arouse to loud voice and is seen moving all extremities spontaneously. Unable to accurately assess orientation/mentation or components of language. It is reported that she has received sedative medications prior to exam. Allergies Allergy/AdvReac Type Severity Reaction Status Date / Time Penicillins Allergy Severe HIVES/SWELL Verified 06/15/24 05:23 ING clindamycin Allergy Intermediate Hives Verified 06/15/24 05:24 Sulfa (Sulfonamide AdvReac Mild Nausea Verified 06/15/24 05:23 Antibiotics) codeine AdvReac sleepy Verified 12/23/23 10:19 Home Medications Medication Instructions Recorded Confirmed Type levothyroxine 100 mcg capsule 100 mcg PO DAILY 12/23/23 06/15/24 History multivitamin 1 tab PO DAILY 12/23/23 06/15/24 History omega-3 fatty acids 1,000 mg 1,000 mg PO DAILY 12/23/23 06/15/24 History capsule prochlorperazine maleate 10 mg 10 mg PO Q6H PRN Nausea 12/23/23 06/15/24 History tablet (Compazine) folic acid 1 mg tablet 1 mg PO DAILY 06/11/24 06/15/24 History methotrexate sodium 2.5 mg tablet 15 mg PO WK 06/11/24 06/15/24 History amlodipine 5 mg tablet (Norvasc) 5 mg PO QAM 30 days #30 tabs 06/13/24 06/15/24 Rx carvedilol 6.25 mg tablet 6.25 mg PO BIDM 30 days #60 tabs 06/13/24 06/15/24 Rx cefdinir 300 mg capsule 300 mg PO BID 5 days #10 caps 06/13/24 06/15/24 Rx doxycycline hyclate 100 mg capsule 100 mg PO BID 5 days #10 caps 06/13/24 06/15/24 Rx magnesium oxide 400 mg (241.3 mg 400 mg PO BID #60 tabs 06/13/24 06/15/24 Rx magnesium) tablet potassium chloride 20 mEq 20 meq PO BID 30 days #60 tabs 06/13/24 06/15/24 Rx tablet,extended release(part/cryst) Patient History Medical History Kidney stone Prediabetes Black hairy tongue Lung cancer Diagnosed 12/04/23;Small cell lung cancer, right Thyroid goiter Ovarian cyst Hypothyroidism Rheumatoid arthritis Allergic rhinitis Surgical History Status post bronchoscopy 12/04/23 Hx of cholecystectomy History of surgery Excision left breast lesion - benign Family History Mother , 69yo Stroke Hypertension Diabetes Father Pacemaker Hypertension Diabetes Brother Diabetes Hypertension Son MVA (motor vehicle accident) Social History Smoking Status: Former smoker Tobacco Type: Cigarettes Cigarettes Per Day: 1 PPD x 40yrs; Second Hand Exposure: No; Hx Alcohol Use: No Hx Substance Use: No Preferred Language: Sri Lankan Communication Ability: Unable Visual Impairment: No Limitations Hearing Ability: Normal 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 Beliefs That Will Affect Care: None marital status: Current Living Situation: Spouse current occupational status: employed 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 How many Children do You have: 0 Other Information That Helps Us Care for You: No Feels Safe at Home: Yes Safety Concerns: Feels Safe At This Time Diet: regular caffeine: Yes (3 cups/day) during the past year weight has: remained stable Assistive Devices: Cane and Walker Physical Exam Neurological Examination: Mental Status: Sleeping, able to be awakened Does not answer questions CN testing: I: Deferred II:Deferred III/IV/: No evidence of gaze preference, hippus, nystagmus or roving eye movements V: Facial sensation is difficult to reliably assess VII: Facial movements appear without evidence of asymmetry VIII: Hearing is difficult to reliably assess IX/X: Palate is difficult to accurately visualize via telemedicine XI: Shoulder shrug unable to assess XII: Tongue protrudes without evidence of biting Motor exam: Strength appears grossly intact/symmetric in all extremities- will spontaneously move all extremities Sensory: Sensation is difficult to reliably assess Coordination: Deferred Reflexes: Deferred Gait: Deferred Results & Data Vital Signs (Past 12 Hours) Vital Signs Temp Pulse Pulse Resp BP Pulse Ox Pulse Ox 06/15/24 13:48 06/15/24 13:47 119/93 06/15/24 13:20 107 H 06/15/24 12:32 36.8 C 120 H 24 177/110 H 97 06/15/24 08:52 102 H 16 178/96 H 98 06/15/24 06:54 85 06/15/24 06:40 88 18 176/123 H 98 06/15/24 06:40 99 02/04/25 06:01 36.9 C 97 H 20 146/89 H 97 06/15/24 05:11 117 H 18 146/89 H 97 06/15/24 03:57 75 18 180/88 H 96 06/15/24 03:37 70 O2 Del Method O2 Del Method O2 Flow Rate 06/15/24 13:48 Room Air 06/15/24 13:47 06/15/24 13:20 06/15/24 12:32 Room Air 06/15/24 08:52 Room Air 06/15/24 06:54 06/15/24 06:40 Room Air 06/15/24 06:40 Room Air 0 06/15/24 06:01 Room Air 06/15/24 05:11 06/15/24 03:57 06/15/24 03:37 Laboratory Results Abnormal lab results 06/14/24 06/15/24 06/15/24 Range/Units 23:28 01:15 06:11 WBC 17.46 H 18.08 H (4.8-10.8) K/ul MCHC 36.2 H (32.0-36.0) g/dL MPV 8.4 L 8.5 L (9.4-12.4) fL Neut # (Auto) 14.84 H 15.20 H (1.40-6.50) K/uL Cassia # (Auto) 0.83 H 1.21 H (0.11-0.59) K/uL VBG pH (7.36-7.41) VBG pCO2 (38-50) mmHg Sodium 121 L 124 L (136-145) mmol/L Potassium (3.5-5.1) mmol/L Chloride 88 L 91 L (98-107) mmol/L Creatinine 0.58 L 0.58 L (0.6-1.2) mg/dl BUN/Creatinine Ratio 20.7 H (10-20) Glucose 164 H 175 H (70-99(Fasting)) mg/dl POC Glucose 172 H (70-99) mg/dl Lactate 2.1 H* 2.2 H* (0.4-2.0) mmol/L Calcium 8.3 L (8.6-10.3) mg/dl Magnesium 1.6 L (1.7-2.4) mg/dl Troponin I High Sens 21.1 H 25.0 H 28.0 H (0-14) pg/ml TSH 5.864 H (0.300-4.500) uIu/ml Urine pH 8.0 H (4.5-7.5) Urine Protein 1+ H (Negative) Urine Glucose (UA) 2+ H (Negative) Urine Ketones 1+ H (Negative) Urine RBC (Auto) 6-10 H (0-2) /hpf Urine Osmolality 385 L (500-800) mOsm/kg 06/15/24 06/15/24 Range/Units 06:15 12:56 WBC (4.8-10.8) K/ul MCHC (32.0-36.0) g/dL MPV (9.4-12.4) fL Neut # (Auto) (1.40-6.50) K/uL Cassia # (Auto) (0.11-0.59) K/uL VBG pH 7.45 H (7.36-7.41) VBG pCO2 33 L (38-50) mmHg Sodium 125 L (136-145) mmol/L Potassium 3.3 L (3.5-5.1) mmol/L Chloride 93 L (98-107) mmol/L Creatinine 0.54 L (0.6-1.2) mg/dl BUN/Creatinine Ratio 20.4 H (10-20) Glucose 167 H (70-99(Fasting)) mg/dl POC Glucose (70-99) mg/dl Lactate (0.4-2.0) mmol/L Calcium 8.4 L (8.6-10.3) mg/dl Magnesium (1.7-2.4) mg/dl Troponin I High Sens 30.3 H (0-14) pg/ml TSH (0.300-4.500) uIu/ml Urine pH (4.5-7.5) Urine Protein (Negative) Urine Glucose (UA) (Negative) Urine Ketones (Negative) Urine RBC (Auto) (0-2) /hpf Urine Osmolality (500-800) mOsm/kg Diagnostic Findings Chest X-Ray 06/14/24 23:28 EXAM: XR chest 1V portable CLINICAL HISTORY: Weakness. TECHNIQUE: An X-ray image of the chest is obtained using an AP projection. COMPARISON: 06/11/2024. FINDINGS: Pulmonary Parenchyma: Inhomogeneous shadowing right perihilar area. No evidence of consolidation, collapse, or focal opacities. No pulmonary nodules are identified. No evidence of pleural effusion or pleural thickening. Heart and Mediastinum: Heart size and shape are normal. No mediastinal widening or masses. Prominent right hilum. Bony Thorax: The bony thorax appears intact without fractures or deformities. Soft Tissues: Soft tissues overlying the chest wall are unremarkable. The tip of the selvin catheter at slightly below the cavoatrial level, this could be projectional/positional. IMPRESSION: Redemonstration of right hilar opacity, possible congested right hilar vasculature/Infiltration with possible right hilar lymphadenopathy. Suggestive for clinical correlation and CT chest if clinically warranted. Electronically signed by Noé Ortega 06-15-2024 03:[address] 06/14/24 23:29 EXAM: CT head/brain wo con CLINICAL HISTORY: confusion, nonfocal neuro, bleed? TECHNIQUE: Multiple axial images are obtained from the skull base to the vertex without contrast. CT scan was performed according to ALARA (as low as reasonable achievable). COMPARISON: None. FINDINGS: There is cerebral atrophy. No evidence of space occupying lesion, hemorrhage, edema, mass effect, midline shift, extra axial collection, or hydrocephalus is noted. Basal cisterns are symmetric and normal in size and configuration. There are scattered periventricular hypodensities as can be seen with chronic microvascular ischemic changes. The gamino-white matter differentiation is preserved. Visualized paranasal sinuses and mastoid air cells are well aerated. Orbital contents are within normal limits. Bony structures are intact. IMPRESSION: 1. No evidence of acute intracranial abnormality is demonstrated. 2. Chronic microvascular ischemic changes. 3. Cerebral atrophy. Electronically signed by Vimal Ojeda 06-15-2024 01:00 AM Medications Administered Home Medications Medication Instructions Recorded Confirmed Last Taken levothyroxine 100 mcg capsule 100 mcg PO DAILY 12/23/23 06/15/24 06/11/24 multivitamin 1 tab PO DAILY 12/23/23 06/15/24 06/11/24 omega-3 fatty acids 1,000 mg 1,000 mg PO DAILY 12/23/23 06/15/24 06/11/24 capsule prochlorperazine maleate 10 mg 10 mg PO Q6H PRN Nausea 12/23/23 06/15/24 06/11/24 tablet (Compazine) folic acid 1 mg tablet 1 mg PO DAILY 06/11/24 06/15/24 06/11/24 methotrexate sodium 2.5 mg tablet 15 mg PO WK 06/11/24 06/15/24 06/11/24 amlodipine 5 mg tablet (Norvasc) 5 mg PO QAM 30 days #30 tabs 06/13/24 06/15/24 Unknown carvedilol 6.25 mg tablet 6.25 mg PO BIDM 30 days #60 tabs 06/13/24 06/15/24 Unknown cefdinir 300 mg capsule 300 mg PO BID 5 days #10 caps 06/13/24 06/15/24 Unknown doxycycline hyclate 100 mg capsule 100 mg PO BID 5 days #10 caps 06/13/24 06/15/24 Unknown magnesium oxide 400 mg (241.3 mg 400 mg PO BID #60 tabs 06/13/24 06/15/24 Unknown magnesium) tablet potassium chloride 20 mEq 20 meq PO BID 30 days #60 tabs 06/13/24 06/15/24 Unknown tablet,extended release(part/cryst) Active Medications Generic Name Dose Route Start Last Admin Trade Name Freq PRN Reason Stop Dose Admin Amlodipine Besylate 5 mg 06/15/24 09:00 06/15/24 10:00 Amlodipine Besylate 5 Mg Tab PO 07/15/24 08:59 Not Given QAM NIDHI Carvedilol 6.25 mg 06/15/24 08:00 06/15/24 09:15 Carvedilol 6.25 Mg Tab PO 07/15/24 07:59 Not Given BIDM NIDHI Enoxaparin Sodium 40 mg 06/15/24 09:00 06/15/24 10:28 Enoxaparin Inj 40 Mg/0.4 Ml Syr SQ 07/15/24 08:59 40 mg Q24H NIDHI Administration Folic Acid 1 mg 06/15/24 09:00 06/15/24 10:00 Folic Acid 1 Mg Tab PO 07/15/24 08:59 Not Given DAILY NIDHI Furosemide 40 mg 06/15/24 11:45 06/15/24 12:41 Furosemide 40 Mg/4 Ml Vial IV 07/15/24 11:44 40 mg BID NIDHI Administration Sodium Chloride 1,000 mls @ 100 mls/hr 06/15/24 05:30 06/15/24 05:31 Nss IV 06/16/24 03:00 75 mls/hr .Q10H NIDHI Administration Cefepime HCl 2,000 mg in 20 mls @ 5 mls/min 06/15/24 14:00 06/15/24 13:02 Maxipime 2000mg IV 06/20/24 13:59 5 mls/min Q8H NIDHI Administration Protocol Thiamine HCl 200 mg/ Sodium 52 mls @ 210 mls/hr 06/15/24 09:00 06/15/24 10:27 Chloride IV 07/15/24 08:59 Infused Q8H NIDHI Infusion Levothyroxine Sodium 100 mcg 06/15/24 06:30 06/15/24 09:15 Levothyroxine Sodium 100 Mcg Tablet PO 07/15/24 06:29 Not Given DAILYBB NIDHI Magnesium Oxide 400 mg 06/15/24 09:00 06/15/24 10:00 Magnesium Oxide 400 Mg Tab PO 07/15/24 08:59 Not Given BID NIDHI Multivitamins 1 tab 06/15/24 09:00 06/15/24 10:00 Multivitamin Tab PO 07/15/24 08:59 Not Given DAILY NIDHI Potassium Chloride 20 meq 06/15/24 09:00 06/15/24 10:00 Potassium Chloride Crtab 20 Meq Tabcr PO 07/15/24 08:59 Not Given BID NIDHI
[2024-06-15] MEDS: DOXYCYCLINE HYCLATE 100 MG in DEXTROSE 5% MINI-B 100 ML IV SCH (17:24)
[2024-06-15] MEDS: POTASSIUM CHLORIDE / WTR 10 MEQ/100 ML PLCT IV SCH (17:28)
[2024-06-15] MEDS: OLANZapine 10 MG/2.1 ML SDV IM PRN (19:42)
[2024-06-15 20:20] LABS: BUN Creatinine Ratio 17.5 (10-20); Calcium 7.5 mg/dl (8.6-10.3); Creatinine Clr Calc Pharmacy 104.5 ml/min; Potassium 3.3 mmol/L (3.5-5.1)
[2024-06-15] MEDS: VANCOMYCIN HCL 1,250 MG in SODIUM CHLORIDE 0.9% 250 ML IV SCH (20:38)
[2024-06-15 20:40] LABS: Troponin I High Sensitivity 31.4 pg/ml (0-14)
[2024-06-16 04:11] LABS: Basophils # (auto) 0.01 K/uL (0.00-0.20); Basophils % (auto) 0.1 %; Eosinophils # (auto) 0.08 K/uL (0.00-0.50); Eosinophils % (auto) 0.6 %; Hematocrit (blood only) 37.1 % (37.0-47.0); Hemoglobin 13.6 g/dl (12.0-16.0); Immature Granulocytes # (auto) 0.05 K/uL (0.01-0.20); Immature Granulocytes % (auto) 0.4 %; Lymphocytes # (auto) 2.23 K/uL (1.20-3.40); Lymphocytes % (auto) 17.4 %; Mean Corpuscular Hemoglobin 32.3 pg (25.0-34.0); Mean Corpuscular Hgb Conc 36.7 g/dL (32.0-36.0); Mean Corpuscular Volume 88.1 fL (80.0-100.0); Mean Platelet Volume 8.6 fL (9.4-12.4); Monocytes # (auto) 1.19 K/uL (0.11-0.59); Monocytes % (auto) 9.3 %; Neutrophils # (auto) 9.28 K/uL (1.40-6.50); Neutrophils % (auto) 72.2 %; Platelet Count 210 K/uL (130-400); RDW Coefficient of Variation 13.7 % (11.5-14.5); RDW Standard Deviation 43.9 fL (36.4-46.3); Red Blood Count 4.21 M/uL (4.20-5.40); White Blood Count 12.84 K/ul (4.8-10.8)
[2024-06-16] MEDS ORDERED: METOPROLOL TARTRATE 1 MG/ML VIAL IV PRN (07:56)
[2024-06-16] MEDS: POTASSIUM CHLORIDE / WTR 10 MEQ/100 ML PLCT IV SCH (09:33)
[2024-06-16 11:02] LABS: BUN Creatinine Ratio 20.3 (10-20); Calcium 7.4 mg/dl (8.6-10.3); Creatinine Clr Calc Pharmacy 99.5 ml/min; Potassium 2.7 mmol/L (3.5-5.1)
--- NOTE | 2024-06-16 11:18 | Nephrology Progress Note ---
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 Even though she has not had much solid food to eat she was still drinking and her blood pressure is high. There is no evidence of volume depletion. Urine osmolarity urine sodium consistent with the SIADH. given this we will continue normal saline at 100 mL/hour. But we also need to lower the urine osmolarity and we will achieve that by using Lasix for free water diuresis. Lower lasix to 40 iv daily. K is very low. raise po kcl to 40 tid. She is al;so getting K riders 30 meq. hopefully with a combination of normal saline and IV Lasix we will be able to raise the serum sodium. But since the underlying diagnosis is small-cell lung cancer there is no guarantee sodium will actually increase. Na did go to 128. check BMP every 12 hours to monitor serum sodium and K. (2) Small cell lung cancer, right upper lobe: underlying cause and very common to have hyponatremia in the situation (3) AMS (altered mental status): she is in significant altered mental status. However I doubt this is the result of hyponatremia. Even during her previous admission her sodium was low and not massively different than what we have now. I do not see the need of giving hypertonic saline. She is more awake and alert today S--She is awake and eyes open and talking however very confused. Vital sigs are fine. at bedside. lot of urine 4200 ml. na is up a bit and k is low. review of systems as detailed in HPI. Unable to get any history from the patie nt. Some history obtained from the at bedside Physical Exam Physical Exam: General- unresponsive. did not open eyes and did not answer a ny questions HEENT- oropharynx dry neck is supple no JVD Lungs- clear to auscultation no wheezing or crackles Heart- regular rhythm; no murmur, no gallop. Abdomen- soft, nontender, no distension Extremities- no edema, Results & Data Vital Signs (Past 12 Hours) Vital Signs Temp Pulse Pulse Resp BP Pulse Ox O2 Del Method 06/16/24 10:38 Room Air 06/16/24 07:37 105 H 06/16/24 07:15 36.6 C 104 H 18 144/100 H 98 Room Air 06/16/24 03:24 36.9 C 106 H 18 155/79 H 96 Room Air 06/16/24 00:00 111 H
--- NOTE | 2024-06-16 11:25 | Electroencephalogram ---
EEG Procedure Note Date of Service June 16, 2024 Start / End Times Start Time: 0610 End Time: [address] Leif Zhang History A 59-year-old female admitted with altered mental status. EEG performed for evaluation of epileptiform activity. Home Medication List Medication Instructions Recorded Confirmed Type levothyroxine 100 mcg capsule 100 mcg PO DAILY 12/23/23 06/15/24 History multivitamin 1 tab PO DAILY 12/23/23 06/15/24 History omega-3 fatty acids 1,000 mg 1,000 mg PO DAILY 12/23/23 06/15/24 History capsule prochlorperazine maleate 10 mg 10 mg PO Q6H PRN Nausea 12/23/23 06/15/24 History tablet (Compazine) folic acid 1 mg tablet 1 mg PO DAILY 06/11/24 06/15/24 History methotrexate sodium 2.5 mg tablet 15 mg PO WK 06/11/24 06/15/24 History amlodipine 5 mg tablet (Norvasc) 5 mg PO QAM 30 days #30 tabs 06/13/24 06/15/24 Rx carvedilol 6.25 mg tablet 6.25 mg PO BIDM 30 days #60 tabs 06/13/24 06/15/24 Rx cefdinir 300 mg capsule 300 mg PO BID 5 days #10 caps 06/13/24 06/15/24 Rx doxycycline hyclate 100 mg capsule 100 mg PO BID 5 days #10 caps 06/13/24 06/15/24 Rx magnesium oxide 400 mg (241.3 mg 400 mg PO BID #60 tabs 06/13/24 06/15/24 Rx magnesium) tablet potassium chloride 20 mEq 20 meq PO BID 30 days #60 tabs 06/13/24 06/15/24 Rx tablet,extended release(part/cryst) Inpatient Medication List Amlodipine Besylate (Amlodipine Besylate 5 Mg Tab) 5 mg PO QAM [facility] Stop: 07/15/24 08:59 Last Admin: 06/16/24 09:21 Dose: Not Given Documented By: Admin: 06/15/24 10:00 Dose: Not Given Documented By: TNK Carvedilol (Carvedilol 6.25 Mg Tab) 6.25 mg PO BIDM [facility] Stop: 07/15/24 07:59 Last Admin: 06/16/24 09:29 Dose: 6.25 mg Documented By: Admin: 06/15/24 17:22 Dose: Not Given Documented By: Admin: 06/15/24 09:15 Dose: Not Given Documented By: Enoxaparin Sodium (Enoxaparin Inj 40 Mg/0.4 Ml Syr) 40 mg SQ Q24H NIDHI Stop: 07/15/24 08:59 Last Admin: 06/16/24 09:07 Dose: 40 mg Documented By: Admin: 06/15/24 10:28 Dose: 40 mg Documented By: Folic Acid (Folic Acid 1 Mg Tab) 1 mg PO DAILY NIDHI Stop: 07/15/24 08:59 Last Admin: 06/16/24 09:21 Dose: Not Given Documented By: Admin: 06/15/24 10:00 Dose: Not Given Documented By: LAURA Cefepime HCl (Maxipime 2000mg) 2,000 mg in 20 mls @ 5 mls/min IV Q8H NIDHI; Protocol Stop: 06/20/24 13:59 Last Admin: 06/16/24 06:31 Dose: 5 mls/min Documented By: Admin: 06/15/24 21:53 Dose: 5 mls/min Documented By: Admin: 06/15/24 13:02 Dose: 5 mls/min Documented By: JASON Doxycycline Hyclate 100 mg/ (Dextrose) 100 mls @ 50 mls/hr IV Q12H NIDHI Stop: 06/20/24 17:59 Last Infusion: 06/16/24 09:36 Dose: Infused Documented By: Admin: 06/16/24 06:28 Dose: 50 mls/hr Documented By: Infusion: 06/15/24 19:33 Dose: Infused Documented By: Admin: 06/15/24 17:24 Dose: 50 mls/hr Documented By: JASON Thiamine HCl 200 mg/ Sodium (Chloride) 52 mls @ 210 mls/hr IV Q8H NIDHI Stop: 07/15/24 08:59 Last Infusion: 06/16/24 09:36 Dose: Infused Documented By: Admin: 06/16/24 09:09 Dose: 210 mls/hr Documented By: Infusion: 06/16/24 01:58 Dose: Infused Documented By: Admin: 06/16/24 00:34 Dose: 210 mls/hr Documented By: Infusion: 06/15/24 18:04 Dose: Infused Documented By: Admin: 06/15/24 17:24 Dose: 210 mls/hr Documented By: Infusion: 06/15/24 10:27 Dose: Infused Documented By: Admin: 06/15/24 09:57 Dose: 210 mls/hr Documented By: GWENDOLYNK Vancomycin HCl 1,250 mg/ (Sodium Chloride) 275 mls @ 200 mls/hr IV Q12H NIDHI Stop: 06/17/24 20:59 Last Infusion: 06/16/24 11:04 Dose: Infused Documented By: Admin: 06/16/24 09:36 Dose: 200 mls/hr Documented By: Infusion: 06/15/24 22:46 Dose: Infused Documented By: Admin: 06/15/24 20:38 Dose: 200 mls/hr Documented By: TATYANA Levothyroxine Sodium (Levothyroxine Sodium 100 Mcg Tablet) 100 mcg PO DAILYBB [facility] Stop: 07/15/24 06:29 Last Admin: 06/16/24 06:29 Dose: Not Given Documented By: Admin: 06/15/24 09:15 Dose: Not Given Documented By: Magnesium Oxide (Magnesium Oxide 400 Mg Tab) 400 mg PO BID NIDHI Stop: 07/15/24 08:59 Last Admin: 06/16/24 09:21 Dose: Not Given Documented By: Admin: 06/15/24 20:38 Dose: Not Given Documented By: Admin: 06/15/24 10:00 Dose: Not Given Documented By: LAURA Multivitamins (Multivitamin Tab) 1 tab PO DAILY NIDHI Stop: 07/15/24 08:59 Last Admin: 06/16/24 09:21 Dose: Not Given Documented By: Admin: 06/15/24 10:00 Dose: Not Given Documented By: GWENDOLYNK Olanzapine (Olanzapine 10 Mg/2.1 Ml Sdv) 5 mg IM Q8H PRN PRN Reason: Agitation Stop: 07/15/24 19:14 Last Admin: 06/16/24 04:13 Dose: 5 mg Documented By: Admin: 06/15/24 19:42 Dose: 5 mg Documented By: LMP Discontinued Medications Droperidol (Droperidol 5 Mg/2 Ml Vial) 1.25 mg IV ONE STA Stop: 06/14/24 23:46 Last Admin: 06/14/24 23:48 Dose: 1.25 mg Documented By: ALEKSANDRA Furosemide (Furosemide 40 Mg/4 Ml Vial) 40 mg IV BID NIDHI Stop: 07/15/24 11:44 Last Admin: 06/16/24 09:08 Dose: 40 mg Documented By: Admin: 06/15/24 20:33 Dose: 40 mg Documented By: Admin: 06/15/24 12:41 Dose: 40 mg Documented By: JASON Haloperidol Lactate (Haloperidol Lactate 5 Mg/Ml 1 Ml Vial) 5 mg IM NOW STA Stop: 06/15/24 12:27 Last Admin: 06/15/24 12:33 Dose: Not Given Documented By: JASON Haloperidol Lactate (Haloperidol Lactate 5 Mg/Ml 1 Ml Vial) Confirm Administered Dose 5 mg .ROUTE .STK-MED ONE Stop: 06/15/24 12:30 Last Admin: 06/15/24 12:32 Dose: 5 mg Documented By: JASON Sodium Chloride (Nss) 1,000 mls @ 100 mls/hr IV .Q10H NIDHI Stop: 06/16/24 03:00 Last Infusion: 06/16/24 07:01 Dose: Infused Documented By: Admin: 06/15/24 17:26 Dose: 75 mls/hr Documented By: Infusion: 06/15/24 17:26 Dose: Infused Documented By: Admin: 06/15/24 05:31 Dose: 75 mls/hr Documented By: JANISK Doxycycline Hyclate 100 mg/ (Dextrose) 100 mls @ 50 mls/hr IV ONE STA Stop: 06/15/24 07:24 Last Infusion: 06/15/24 08:56 Dose: Infused Documented By: Admin: 06/15/24 06:21 Dose: 50 mls/hr Documented By: ALEKSANDRA Cefepime HCl (Maxipime 2000mg) 2,000 mg in 20 mls @ 5 mls/min IV ONE STA; Protocol Stop: 06/15/24 05:28 Last Admin: 06/15/24 06:17 Dose: 5 mls/min Documented By: ALEKSANDRA Vancomycin HCl 2,250 mg/ (Sodium Chloride) 545 mls @ 200 mls/hr IV NOW ONE Stop: 06/15/24 11:28 Last Infusion: 06/15/24 12:26 Dose: Infused Documented By: Admin: 06/15/24 09:18 Dose: 200 mls/hr Documented By: Potassium Chloride (K Martin / Wtr) 10 meq in 100 mls @ 100 mls/hr IV Q1H NIDHI Stop: 06/15/24 21:14 Last Infusion: 06/15/24 21:36 Dose: Infused Documented By: Admin: 06/15/24 20:30 Dose: 100 mls/hr Documented By: Infusion: 06/15/24 20:30 Dose: Infused Documented By: Admin: 06/15/24 19:32 Dose: 100 mls/hr Documented By: Infusion: 06/15/24 19:23 Dose: Infused Documented By: Admin: 06/15/24 18:23 Dose: 100 mls/hr Documented By: Infusion: 06/15/24 18:23 Dose: Infused Documented By: Admin: 06/15/24 17:28 Dose: 100 mls/hr Documented By: JASON Potassium Chloride (K Martin / Wtr) 10 meq in 100 mls @ 100 mls/hr IV Q1H NIDHI Stop: 06/16/24 10:59 Last Admin: 06/16/24 10:44 Dose: 100 mls/hr Documented By: Infusion: 06/16/24 10:33 Dose: Infused Documented By: Admin: 06/16/24 09:33 Dose: 100 mls/hr Documented By: JASON Lorazepam (Lorazepam 2 Mg/1 Ml Vial) 0.5 mg IV NOW STA Stop: 06/15/24 13:22 Last Admin: 06/15/24 13:29 Dose: 0.5 mg Documented By: JASON Lorazepam (Lorazepam 2 Mg/1 Ml Vial) Confirm Administered Dose 2 mg .ROUTE .STK- MED ONE Stop: 06/15/24 13:28 Last Admin: 06/15/24 13:29 Dose: Not Given Documented By: JASON Lorazepam (Lorazepam 2 Mg/1 Ml Vial) 0.25 mg IV NOW STA Stop: 06/15/24 22:47 Last Admin: 06/15/24 22:53 Dose: 0.25 mg Documented By: TATYANA Potassium Chloride (Potassium Chloride Crtab 20 Meq Tabcr) 20 meq PO BID NIDHI Stop: 07/15/24 08:59 Last Admin: 06/15/24 10:00 Dose: Not Given Documented By: TNK Potassium Chloride (Potassium Chloride Crtab 20 Meq Tabcr) 40 meq PO BID [facility] Stop: 07/15/24 16:29 Last Admin: 06/16/24 09:20 Dose: Not Given Documented By: Admin: 06/15/24 20:38 Dose: Not Given Documented By: Admin: 06/15/24 17:22 Dose: Not Given Documented By: DW Description This is a 21 electrode EEG with a single channel dedicated to limited EKG. The electrodes were placed in accordance with the International 10-20 system. Report: That the onset of the EEG the patient is in altered mental state. The background is disorganized with loss of the normal anterior to posterior gradient. Background appears symmetric and continuous. The background predominantly consists of generalized theta activity with frequent generalized spike and wave discharges. Photic stimulation does not induce any additional abnormalities. No electrographic seizures are noted. Interpretation This is an abnormal routine EEG in a patient with altered mental status due to 1. intermittent generalized epileptiform discharges (GPEDs) suggestive of underlying predisposition for seizure, 2. generalized background slowing suggestive of a nonspecific encephalopathy.
--- NOTE | 2024-06-16 11:56 | Neurology Progress Note ---
Date of Service June 16, 2024 Assessment & Plan (1) AMS (altered mental status): EEG revealing for diffuse epileptiform discharges Recommend initiating IV Keppra 1000mg Q12 Continue to provide seizure precautions Continue to monitor mentation Recommend continued frequent neurological assessments Obtain stat CT brain without contrast for any acute neurological decline Await MRI brain with and without contrast Keep low threshold for LP Suspect toxic metabolic encephalopathy in setting of ongoing infection Agree with continued antimicrobial therapy Agree with continued electrolyte monitoring and sodium replacement Continue to monitor/control blood pressure & blood glucose Continue to monitor telemetry closely Continue to monitor renal and hepatic function, keep euvolemic Ok from neurology perspective for VTE prophylaxis PT/OT/SLT to eval and treat Subjective Telehealth Information I performed this visit using a real-time telehealth connection between my location and the patients location ([facility]). After connecting through interactive tele-video, patient was identified by name and date of and/or wristband check.Patient (or authorized healthcare customer operations representative) was informed that this was a telemedicine visit and it was being conducted confidentially over secure lines. My office door was closed and no one else was present in the room with me.Patient (or authorized healthcare customer operations representative) provided consent to proceed with the visit, expressed an understanding of privacy and security of the telemedicine visit, and gave permission to have a hospital customer operations representative in the room in order to assist with the visit and to conduct portions of the visit, as needed. I informed the patient (or authorized healthcare customer operations representative) that I reviewed their record and presented the opportunity for them to ask any questions regarding the visit today. The patient agreed to participate. 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 She was recently admitted and discharged on 06/13 but returned last evening with reported confusion and found to be hyponatremic. She has undergone an EEG revealing diffuse epileptiform discharges. I have performed televideo consultation. Her is present all questions answered. Patient appears more wakeful. Does not consistently follow commands. Will answer some questions but inconsistently. There has been no reported clinical seizure like activity. Physical Exam Neurological Examination: Mental Status: More wakefulness noted Does not readily or consistently answer questions CN testing: I: Deferred II:Deferred III/IV/: No evidence of gaze preference, hippus, nystagmus or roving eye movements V: Facial sensation is difficult to reliably assess VII: Facial movements appear without evidence of asymmetry VIII: Hearing remains difficult to reliably assess IX/X: Palate is difficult to accurately visualize via telemedicine XI: Shoulder shrug unable to assess XII: Tongue protrudes without evidence of biting Motor exam: Strength appears grossly intact/symmetric in all extremities- will spontaneously move all extremities Sensory: Sensation remains difficult to reliably assess Coordination: Deferred Reflexes: Deferred Gait: Deferred Results & Data Vital Signs (Past 12 Hours) Vital Signs Temp Pulse Pulse Resp BP Pulse Ox O2 Del Method 06/16/24 10:38 Room Air 06/16/24 07:37 105 H 06/16/24 07:15 36.6 C 104 H 18 144/100 H 98 Room Air 06/16/24 03:24 36.9 C 106 H 18 155/79 H 96 Room Air 06/16/24 00:00 111 H Laboratory Results Abnormal lab results 06/15/24 06/15/24 06/16/24 Range/Units 12:56 19:26 03:29 WBC 12.84 H (4.8-10.8) K/ul MCHC 36.7 H (32.0-36.0) g/dL MPV 8.6 L (9.4-12.4) fL Neut # (Auto) 9.28 H (1.40-6.50) K/uL Bandera # (Auto) 1.19 H (0.11-0.59) K/uL Sodium 125 L 125 L (136-145) mmol/L Potassium 3.3 L 3.3 L (3.5-5.1) mmol/L Chloride 93 L 92 L (98-107) mmol/L Creatinine 0.54 L (0.6-1.2) mg/dl BUN/Creatinine Ratio 20.4 H (10-20) Glucose 167 H 160 H (70-99(Fasting)) mg/dl Calcium 8.4 L 7.5 L (8.6-10.3) mg/dl Troponin I High Sens 30.3 H 31.4 H (0-14) pg/ml 06/16/24 Range/Units 10:27 WBC (4.8-10.8) K/ul MCHC (32.0-36.0) g/dL MPV (9.4-12.4) fL Neut # (Auto) (1.40-6.50) K/uL Bandera # (Auto) (0.11-0.59) K/uL Sodium 128 L (136-145) mmol/L Potassium 2.7 L (3.5-5.1) mmol/L Chloride 94 L (98-107) mmol/L Creatinine (0.6-1.2) mg/dl BUN/Creatinine Ratio 20.3 H (10-20) Glucose 160 H (70-99(Fasting)) mg/dl Calcium 7.4 L (8.6-10.3) mg/dl Troponin I High Sens (0-14) pg/ml Diagnostic Findings EEG Procedure Note Date of Service June 16, 2024 Start / End Times Start Time: 609 End Time: [address] Leif Zhang History A 59-year-old female admitted with altered mental status. EEG performed for evaluation of epileptiform activity. Home Medication List Medication Instructions Recorded Confirmed Type levothyroxine 100 mcg capsule 100 mcg PO DAILY 12/23/23 06/15/24 History multivitamin 1 tab PO DAILY 12/23/23 06/15/24 History omega-3 fatty acids 1,000 mg 1,000 mg PO DAILY 12/23/23 06/15/24 History capsule prochlorperazine maleate 10 mg 10 mg PO Q6H PRN Nausea 12/23/23 06/15/24 History tablet (Compazine) folic acid 1 mg tablet 1 mg PO DAILY 06/11/24 06/15/24 History methotrexate sodium 2.5 mg tablet 15 mg PO WK 06/11/24 06/15/24 History amlodipine 5 mg tablet (Norvasc) 5 mg PO QAM 30 days #30 tabs 06/13/24 06/15/24 Rx carvedilol 6.25 mg tablet 6.25 mg PO BIDM 30 days #60 tabs 06/13/24 06/15/24 Rx cefdinir 300 mg capsule 300 mg PO BID 5 days #10 caps 06/13/24 06/15/24 Rx doxycycline hyclate 100 mg capsule 100 mg PO BID 5 days #10 caps 06/13/24 06/15/24 Rx magnesium oxide 400 mg (241.3 mg 400 mg PO BID #60 tabs 06/13/24 06/15/24 Rx magnesium) tablet potassium chloride 20 mEq 20 meq PO BID 30 days #60 tabs 06/13/24 06/15/24 Rx tablet,extended release(part/cryst) Inpatient Medication List Amlodipine Besylate (Amlodipine Besylate 5 Mg Tab) 5 mg PO QAM [facility] Stop: 07/15/24 08:59 Last Admin: 06/16/24 09:21 Dose: Not Given Documented By: Admin: 06/15/24 10:00 Dose: Not Given Documented By: GWENDOLYNK Carvedilol (Carvedilol 6.25 Mg Tab) 6.25 mg PO BIDM [facility] Stop: 07/15/24 07:59 Last Admin: 06/16/24 09:29 Dose: 6.25 mg Documented By: Admin: 06/15/24 17:22 Dose: Not Given Documented By: Admin: 06/15/24 09:15 Dose: Not Given Documented By: Enoxaparin Sodium (Enoxaparin Inj 40 Mg/0.4 Ml Syr) 40 mg SQ Q24H [facility] Stop: 07/15/24 08:59 Last Admin: 06/16/24 09:07 Dose: 40 mg Documented By: Admin: 06/15/24 10:28 Dose: 40 mg Documented By: Folic Acid (Folic Acid 1 Mg Tab) 1 mg PO DAILY [facility] Stop: 07/15/24 08:59 Last Admin: 06/16/24 09:21 Dose: Not Given Documented By: Admin: 06/15/24 10:00 Dose: Not Given Documented By: LAURA Cefepime HCl (Maxipime 2000mg) 2,000 mg in 20 mls @ 5 mls/min IV Q8H [facility]; Protocol Stop: 06/20/24 13:59 Last Admin: 06/16/24 06:31 Dose: 5 mls/min Documented By: Admin: 06/15/24 21:53 Dose: 5 mls/min Documented By: Admin: 06/15/24 13:02 Dose: 5 mls/min Documented By: JASON Doxycycline Hyclate 100 mg/ (Dextrose) 100 mls @ 50 mls/hr IV Q12H [facility] Stop: 06/20/24 17:59 Last Infusion: 06/16/24 09:36 Dose: Infused Documented By: Admin: 06/16/24 06:28 Dose: 50 mls/hr Documented By: Infusion: 06/15/24 19:33 Dose: Infused Documented By: Admin: 06/15/24 17:24 Dose: 50 mls/hr Documented By: JASON Thiamine HCl 200 mg/ Sodium (Chloride) 52 mls @ 210 mls/hr IV Q8H [facility] Stop: 07/15/24 08:59 Last Infusion: 06/16/24 09:36 Dose: Infused Documented By: Admin: 06/16/24 09:09 Dose: 210 mls/hr Documented By: Infusion: 06/16/24 01:58 Dose: Infused Documented By: Admin: 06/16/24 00:34 Dose: 210 mls/hr Documented By: Infusion: 06/15/24 18:04 Dose: Infused Documented By: Admin: 06/15/24 17:24 Dose: 210 mls/hr Documented By: Infusion: 06/15/24 10:27 Dose: Infused Documented By: Admin: 06/15/24 09:57 Dose: 210 mls/hr Documented By: LAURA Vancomycin HCl 1,250 mg/ (Sodium Chloride) 275 mls @ 200 mls/hr IV Q12H [facility] Stop: 06/17/24 20:59 Last Infusion: 06/16/24 11:04 Dose: Infused Documented By: Admin: 06/16/24 09:36 Dose: 200 mls/hr Documented By: Infusion: 06/15/24 22:46 Dose: Infused Documented By: Admin: 06/15/24 20:38 Dose: 200 mls/hr Documented By: TATYANA Levothyroxine Sodium (Levothyroxine Sodium 100 Mcg Tablet) 100 mcg PO DAILYBB [facility] Stop: 07/15/24 06:29 Last Admin: 06/16/24 06:29 Dose: Not Given Documented By: Admin: 06/15/24 09:15 Dose: Not Given Documented By: Magnesium Oxide (Magnesium Oxide 400 Mg Tab) 400 mg PO BID [facility] Stop: 07/15/24 08:59 Last Admin: 06/16/24 09:21 Dose: Not Given Documented By: Admin: 06/15/24 20:38 Dose: Not Given Documented By: Admin: 06/15/24 10:00 Dose: Not Given Documented By: GWENDOLYNK Multivitamins (Multivitamin Tab) 1 tab PO DAILY [facility] Stop: 07/15/24 08:59 Last Admin: 06/16/24 09:21 Dose: Not Given Documented By: Admin: 06/15/24 10:00 Dose: Not Given Documented By: LAURA Olanzapine (Olanzapine 10 Mg/2.1 Ml Sdv) 5 mg IM Q8H PRN PRN Reason: Agitation Stop: 07/15/24 19:14 Last Admin: 06/16/24 04:13 Dose: 5 mg Documented By: Admin: 06/15/24 19:42 Dose: 5 mg Documented By: LMP Discontinued Medications Droperidol (Droperidol 5 Mg/2 Ml Vial) 1.25 mg IV ONE STA Stop: 06/14/24 23:46 Last Admin: 06/14/24 23:48 Dose: 1.25 mg Documented By: JANISK Furosemide (Furosemide 40 Mg/4 Ml Vial) 40 mg IV BID [facility] Stop: 07/15/24 11:44 Last Admin: 06/16/24 09:08 Dose: 40 mg Documented By: Admin: 06/15/24 20:33 Dose: 40 mg Documented By: Admin: 06/15/24 12:41 Dose: 40 mg Documented By: JASON Haloperidol Lactate (Haloperidol Lactate 5 Mg/Ml 1 Ml Vial) 5 mg IM NOW STA Stop: 06/15/24 12:27 Last Admin: 06/15/24 12:33 Dose: Not Given Documented By: JASON Haloperidol Lactate (Haloperidol Lactate 5 Mg/Ml 1 Ml Vial) Confirm Administered Dose 5 mg .ROUTE .STK-MED ONE Stop: 06/15/24 12:30 Last Admin: 06/15/24 12:32 Dose: 5 mg Documented By: JASON Sodium Chloride (Nss) 1,000 mls @ 100 mls/hr IV .Q10H [facility] Stop: 06/16/24 03:00 Last Infusion: 06/16/24 07:01 Dose: Infused Documented By: Admin: 06/15/24 17:26 Dose: 75 mls/hr Documented By: Infusion: 06/15/24 17:26 Dose: Infused Documented By: Admin: 06/15/24 05:31 Dose: 75 mls/hr Documented By: JANISK Doxycycline Hyclate 100 mg/ (Dextrose) 100 mls @ 50 mls/hr IV ONE STA Stop: 06/15/24 07:24 Last Infusion: 06/15/24 08:56 Dose: Infused Documented By: MSLilibeth Admin: 06/15/24 06:21 Dose: 50 mls/hr Documented By: ALEKSANDRA Cefepime HCl (Maxipime 2000mg) 2,000 mg in 20 mls @ 5 mls/min IV ONE STA; Protocol Stop: 06/15/24 05:28 Last Admin: 06/15/24 06:17 Dose: 5 mls/min Documented By: ALEKSANDRA Vancomycin HCl 2,250 mg/ (Sodium Chloride) 545 mls @ 200 mls/hr IV NOW ONE Stop: 06/15/24 11:28 Last Infusion: 06/15/24 12:26 Dose: Infused Documented By: Admin: 06/15/24 09:18 Dose: 200 mls/hr Documented By: Potassium Chloride (K Martin / Wtr) 10 meq in 100 mls @ 100 mls/hr IV Q1H [facility] Stop: 06/15/24 21:14 Last Infusion: 06/15/24 21:36 Dose: Infused Documented By: Admin: 06/15/24 20:30 Dose: 100 mls/hr Documented By: Infusion: 06/15/24 20:30 Dose: Infused Documented By: Admin: 06/15/24 19:32 Dose: 100 mls/hr Documented By: Infusion: 06/15/24 19:23 Dose: Infused Documented By: Admin: 06/15/24 18:23 Dose: 100 mls/hr Documented By: Infusion: 06/15/24 18:23 Dose: Infused Documented By: Admin: 06/15/24 17:28 Dose: 100 mls/hr Documented By: JASON Potassium Chloride (K Martin / Wtr) 10 meq in 100 mls @ 100 mls/hr IV Q1H [facility] Stop: 06/16/24 10:59 Last Admin: 06/16/24 10:44 Dose: 100 mls/hr Documented By: Infusion: 06/16/24 10:33 Dose: Infused Documented By: Admin: 06/16/24 09:33 Dose: 100 mls/hr Documented By: JASON Lorazepam (Lorazepam 2 Mg/1 Ml Vial) 0.5 mg IV NOW STA Stop: 06/15/24 13:22 Last Admin: 06/15/24 13:29 Dose: 0.5 mg Documented By: JASON Lorazepam (Lorazepam 2 Mg/1 Ml Vial) Confirm Administered Dose 2 mg .ROUTE .STK- MED ONE Stop: 06/15/24 13:28 Last Admin: 06/15/24 13:29 Dose: Not Given Documented By: DW Lorazepam (Lorazepam 2 Mg/1 Ml Vial) 0.25 mg IV NOW STA Stop: 06/15/24 22:47 Last Admin: 06/15/24 22:53 Dose: 0.25 mg Documented By: LMP Potassium Chloride (Potassium Chloride Crtab 20 Meq Tabcr) 20 meq PO BID [facility] Stop: 07/15/24 08:59 Last Admin: 06/15/24 10:00 Dose: Not Given Documented By: TNK Potassium Chloride (Potassium Chloride Crtab 20 Meq Tabcr) 40 meq PO BID [facility] Stop: 07/15/24 16:29 Last Admin: 06/16/24 09:20 Dose: Not Given Documented By: Admin: 06/15/24 20:38 Dose: Not Given Documented By: Admin: 06/15/24 17:22 Dose: Not Given Documented By: JASON Description This is a 21 electrode EEG with a single channel dedicated to limited EKG. The electrodes were placed in accordance with the International 10-20 system. Report: That the onset of the EEG the patient is in altered mental state. The background is disorganized with loss of the normal anterior to posterior gradient. Background appears symmetric and continuous. The background predominantly consists of generalized theta activity with frequent generalized spike and wave discharges. Photic stimulation does not induce any additional abnormalities. No electrographic seizures are noted. Interpretation This is an abnormal routine EEG in a patient with altered mental status due to 1. intermittent generalized epileptiform discharges (GPEDs) suggestive of underlying predisposition for seizure, 2. generalized background slowing suggestive of a nonspecific encephalopathy. Medications Administered Home Medications Medication Instructions Recorded Confirmed Last Taken levothyroxine 100 mcg capsule 100 mcg PO DAILY 12/23/23 06/15/24 06/11/24 multivitamin 1 tab PO DAILY 12/23/23 06/15/24 06/11/24 omega-3 fatty acids 1,000 mg 1,000 mg PO DAILY 12/23/23 06/15/24 06/11/24 capsule prochlorperazine maleate 10 mg 10 mg PO Q6H PRN Nausea 12/23/23 06/15/24 06/11/24 tablet (Compazine) folic acid 1 mg tablet 1 mg PO DAILY 06/11/24 06/15/24 06/11/24 methotrexate sodium 2.5 mg tablet 15 mg PO WK 06/11/24 06/15/24 06/11/24 amlodipine 5 mg tablet (Norvasc) 5 mg PO QAM 30 days #30 tabs 06/13/24 06/15/24 Unknown carvedilol 6.25 mg tablet 6.25 mg PO BIDM 30 days #60 tabs 06/13/24 06/15/24 Unknown cefdinir 300 mg capsule 300 mg PO BID 5 days #10 caps 06/13/24 06/15/24 Unknown doxycycline hyclate 100 mg capsule 100 mg PO BID 5 days #10 caps 06/13/24 06/15/24 Unknown magnesium oxide 400 mg (241.3 mg 400 mg PO BID #60 tabs 06/13/24 06/15/24 Unknown magnesium) tablet potassium chloride 20 mEq 20 meq PO BID 30 days #60 tabs 06/13/24 06/15/24 Unknown tablet,extended release(part/cryst) Active Medications Generic Name Dose Route Start Last Admin Trade Name Freq PRN Reason Stop Dose Admin Amlodipine Besylate 5 mg 06/15/24 09:00 06/16/24 09:21 Amlodipine Besylate 5 Mg Tab PO 07/15/24 08:59 Not Given QAM [facility] Carvedilol 6.25 mg 06/15/24 08:00 06/16/24 09:29 Carvedilol 6.25 Mg Tab PO 07/15/24 07:59 6.25 mg BIDM [facility] Administration Enoxaparin Sodium 40 mg 06/15/24 09:00 06/16/24 09:07 Enoxaparin Inj 40 Mg/0.4 Ml Syr SQ 07/15/24 08:59 40 mg Q24H [facility] Administration Folic Acid 1 mg 06/15/24 09:00 06/16/24 09:21 Folic Acid 1 Mg Tab PO 07/15/24 08:59 Not Given DAILY [facility] Cefepime HCl 2,000 mg in 20 mls @ 5 mls/min 06/15/24 14:00 06/16/24 06:31 Maxipime 2000mg IV 06/20/24 13:59 5 mls/min Q8H [facility] Administration Protocol Doxycycline Hyclate 100 mg/ 100 mls @ 50 mls/hr 06/15/24 18:00 06/16/24 09:36 Dextrose IV 06/20/24 17:59 Infused Q12H [facility] Infusion Thiamine HCl 200 mg/ Sodium 52 mls @ 210 mls/hr 06/15/24 09:00 06/16/24 09:36 Chloride IV 07/15/24 08:59 Infused Q8H [facility] Infusion Vancomycin HCl 1,250 mg/ 275 mls @ 200 mls/hr 06/15/24 21:00 06/16/24 11:04 Sodium Chloride IV 06/17/24 20:59 Infused Q12H [facility] Infusion Levothyroxine Sodium 100 mcg 06/15/24 06:30 06/16/24 06:29 Levothyroxine Sodium 100 Mcg Tablet PO 07/15/24 06:29 Not Given DAILYBB [facility] Magnesium Oxide 400 mg 06/15/24 09:00 06/16/24 09:21 Magnesium Oxide 400 Mg Tab PO 07/15/24 08:59 Not Given BID N[facility] Multivitamins 1 tab 06/15/24 09:00 06/16/24 09:21 Multivitamin Tab PO 07/15/24 08:59 Not Given DAILY [facility] Olanzapine 5 mg 06/15/24 19:15 06/16/24 04:13 Olanzapine 10 Mg/2.1 Ml Sdv IM 07/15/24 19:14 5 mg Q8H PRN Administration Agitation
[2024-06-16] MEDS: levETIRAcetam 500 MG/5 ML VIAL IV SCH (12:35)
[2024-06-16] MEDS: POTASSIUM CHLORIDE CRTAB 20 MEQ TABCR PO SCH (13:21)
--- NOTE | 2024-06-16 14:36 | Hospitalist Progress Note ---
Date of Service June 16, 2024 Assessment & Plan (1) AMS (altered mental status): Plan: 59-year-old female with past med history significant for hyperlipidemia, hypothyroidism, prediabetes, rheumatoid arthritis, recent diagnosis of small cell lung cancer right side November 2023 metastatic to bone and liver status post 1 cycle of chemotherapy as per records was recently in the hospital for electrolyte abnormalities discharged on 06/13/24 comes back again with confusion and found to have hyponatremia. Patient is very confused. Not talking. Hemodynamics are okay. As per ER patient seems to have confusion since 11 AM and worsening throughout the day slowly and brought to the ER. She is able to move all her extremities. Altered mental status DD: Metabolic encephalopathy secondary to pneumonia, hyponatremia; possible seizures Has leukocytosis and lactic acid of 2.2. Possible sepsis --CT Head:No evidence of acute intracranial abnormality is demonstrated. Chronic microvascular ischemic changes. Cerebral atrophy. --EEG:This is an abnormal routine EEG in a patient with altered mental status due to 1. intermittent generalized epileptiform discharges (GPEDs) suggestive of underlying predisposition for seizure, 2. generalized background slowing suggestive of a nonspecific encephalopathy. --MRI Brain: Pending --Negative Biofire -- Blood cultures negative to date --Nasal MRSA negative --Empirically on cefepime, doxycycline, vancomycin Will consider discontinuing vancomycin tomorrow if cultures remain negative Appreciate neurology input Started on IV Keppra Seizure precautions Reorient frequently to minimize delirium Advance diet as tolerated Hyponatremia Presented with sodium 121 Given metastatic small cell lung cancer, likely SIADH Received IV fluids with Lasix Continue IV Lasix per nephrology Monitor sodium levels closely Fluid restriction Sodium 128 today Hypokalemia Hypomagnesemia Monitor and replete Electrolytes as needed Urinary retention Continue Zavala catheter for now Consider voiding trial prior to discharge Will need urology follow-up as outpatient Mild elevation troponin Mostly demand ischemia Denies any chest pain, dyspnea Hypertension Continue amlodipine, Coreg Monitor BP Hypothyroidism Mildly elevated TSH, normal free T4 Continue levothyroxine Rheumatoid arthritis Will hold methotrexate Question of being on prednisone Follow-up as outpatient DVT Px: Lovenox SQ Code Status Full code Admission and Anticipated Discharge Date Admission Date: June 15, 2024 Subjective Patient is seen and examined at bedside Mental status slightly improved today Oriented to person only during my encounter, follows simple commands Discussed with neurology Also updated patient's family over the phone Patient poor historian Denies any chest pain, dyspnea, nausea, vomiting, abdominal pain Review of Systems Review of Systems: All systems reviewed & are unremarkable except as noted in Subjective Physical Exam Physical Exam: Physical Exam: Vitals signs as noted above General Appearance: Obese, no apparent distress Head: normocephalic, Atraumatic Eyes: normal inspection, EOMI Neck: supple, Trachea midline Respiratory/Chest: Normal breath sounds, CTA, No accessory muscle use Cardiovascular: S1, S2, No murmur, tachycardia Abdomen/GI:Soft, Non tender, Bowel sounds present Extremities/Musculoskeletal:normal inspection, no edema Neurologic/Psych:AAOX1, grossly no focal neurological deficits, tries to follow simple commands Skin: normal color, warm Results & Data Results & Data Vital Signs (Past 12 Hours) Vital Signs Temp Pulse Pulse Resp BP Pulse Ox O2 Del Method 06/16/24 14:28 75 06/16/24 10:38 Room Air 06/16/24 07:37 105 H 06/16/24 07:15 36.6 C 104 H 18 144/100 H 98 Room Air 06/16/24 03:24 36.9 C 106 H 18 155/79 H 96 Room Air Laboratory Results Short CBC 06/16/24 Range/Units 03:29 WBC 12.84 H (4.8-10.8) K/ul Hgb 13.6 (12.0-16.0) g/dl Hct 37.1 (37.0-47.0) % Plt Count 210 (130-400) K/uL BMP 06/15/24 06/16/24 19:26 10:27 Sodium 125 L 128 L Potassium 3.3 L 2.7 L Chloride 92 L 94 L Carbon Dioxide 25 24 BUN 11 13 Creatinine 0.63 0.64 Glucose 160 H 160 H Calcium 7.5 L 7.4 L
[2024-06-17 06:19] LABS: Hematocrit (blood only) 39.4 % (37.0-47.0); Hemoglobin 14.1 g/dl (12.0-16.0); Mean Corpuscular Hemoglobin 31.9 pg (25.0-34.0); Mean Corpuscular Hgb Conc 35.8 g/dL (32.0-36.0); Mean Corpuscular Volume 89.1 fL (80.0-100.0); Mean Platelet Volume 8.4 fL (9.4-12.4); Platelet Count 239 K/uL (130-400); RDW Coefficient of Variation 13.8 % (11.5-14.5); RDW Standard Deviation 45.1 fL (36.4-46.3); Red Blood Count 4.42 M/uL (4.20-5.40); White Blood Count 17.62 K/ul (4.8-10.8)
[2024-06-17 06:36] LABS: BUN Creatinine Ratio 27.9 (10-20); Calcium 8.3 mg/dl (8.6-10.3); Creatinine Clr Calc Pharmacy 103.5 ml/min; Magnesium 1.7 mg/dl (1.7-2.4); Potassium 3.2 mmol/L (3.5-5.1)
[2024-06-17] MEDS: oxyCODONE/ACETAMINOPHEN 5mg/325mg TAB PO PRN (08:29)
[2024-06-17] MEDS: FUROSEMIDE 40 MG/4 ML VIAL IV SCH (08:30)
--- NOTE | 2024-06-17 10:48 | Nephrology Progress Note ---
Date of Service June 17, 2024 Assessment & Plan Admission and Anticipated Discharge Date Admission Date: June 15, 2024 Subjective Assessment & Plan (1) Acute hyponatremia: given her underlying diagnosis of metastatic small-cell lung cancer this is a case of SIADH. Even though she has not had much solid food to eat she was still drinking and her blood pressure is high. There is no evidence of volume depletion. Urine osmolarity urine sodium consistent with the SIADH. given this we will continue normal saline at 100 mL/hour. But we also need to lower the urine osmolarity and we will achieve that by using Lasix for free water diuresis. na did get better from 121 to 133 with NS + iv lasix Now: Stop iv lasix now. Stop IVF K is still low. Lower kcl to 40 bid.She is also getting K riders 30 meq.. Na did go to 133 now. check BMP every 24 hours to monitor serum sodium and K. (2) Small cell lung cancer, right upper lobe: underlying cause and very common to have hyponatremia in the situation (3) AMS (altered mental status): she is in significant altered mental status. However I doubt this is the result of hyponatremia. Even during her previous admission her sodium was low and not massively different than what we have now. I do not see the need of giving hypertonic saline. She is more awake and alert today S--She is awake and eyes open and talking. however very confused. Vital signs are fine. at bedside. lot of urine. na is up a bit and k is low. review of systems as detailed in HPI. Unable to get any history from the patient. Some history obtained from the at bedside Physical Exam Physical Exam: General- unresponsive. did not open eyes and did not answer any questions HEENT- oropharynx dry neck is supple no JVD Lungs- clear to auscultation no wheezing or crackles Heart- regular rhythm; no murmur, no gallop. Abdomen- soft, nontender, no distension Extremities- no edema, Results & Data Vital Signs (Past 12 Hours) Vital Signs Temp Pulse Pulse Resp BP Pulse Ox O2 Del Method 06/17/24 09:44 Room Air 06/17/24 07:34 106 H 06/17/24 06:56 37 C 99 H 18 157/88 H 97 Room Air 06/17/24 03:51 36.8 C 105 H 18 154/81 H 96 Room Air
--- NOTE | 2024-06-17 17:09 | Hospitalist Progress Note ---
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 Patient is very confused. Not talking. Hemodynamics are okay. As per ER patient seems to have confusion since 11 AM and worsening throughout the day slowly and brought to the ER. She is able to move all her extremities. Altered mental status DD: Metabolic encephalopathy secondary to pneumonia, hyponatremia; possible seizures Has leukocytosis and lactic acid of 2.2. Possible sepsis --CT Head:No evidence of acute intracranial abnormality is demonstrated. Chronic microvascular ischemic changes. Cerebral atrophy. --EEG:This is an abnormal routine EEG in a patient with altered mental status due to 1. intermittent generalized epileptiform discharges (GPEDs) suggestive of underlying predisposition for seizure, 2. generalized background slowing suggestive of a nonspecific encephalopathy. --MRI Brain: Pending --Negative Biofire -- Blood cultures negative to date --Nasal MRSA negative --Empirically on cefepime, doxycycline, vancomycin Will consider discontinuing vancomycin tomorrow if cultures remain negative Appreciate neurology input Started on IV Keppra Seizure precautions Reorient frequently to minimize delirium Tolerating diet Further management to be discussed with neurologist once MRI results Abdominal pain No tenderness, guarding on exam Will check KUB Hepatic lesions on CT: Likely metastatic disease --CT ABD:Scattered, small indeterminate hepatic lesions, are low attenuating, and demonstrating rim enhancement, with benign and malignant etiologies considered, including metastatic disease if there is a history of a primary cancer, versus benign lesion such as hemangioma, FNH, adenoma, etc. Recommended follow-up MRI with IV contrast. -- Will need follow-up as outpatient Hyponatremia Presented with sodium 121 Given metastatic small cell lung cancer, likely SIADH Received IV fluids with Lasix IV Lasix discontinued Appreciate nephrology input Monitor sodium levels closely Continue fluid restriction Sodium 133 today Hypokalemia Hypomagnesemia Monitor and replete Electrolytes as needed Urinary retention Continue Zavala catheter for now Consider voiding trial prior to discharge Will need urology follow-up as outpatient Mild elevation troponin Mostly demand ischemia Denies any chest pain, dyspnea Hypertension Continue amlodipine, Coreg Monitor BP Hypothyroidism Mildly elevated TSH, normal free T4 Continue levothyroxine Rheumatoid arthritis Will hold methotrexate Question of being on prednisone Follow-up as outpatient DVT Px: Saranyanox SQ Code Status Full code Admission and Anticipated Discharge Date Admission Date: June 15, 2024 Subjective Patient is seen and examined at bedside Mental status continues to improve States having some abdominal pain today Tolerating diet Denies any chest pain, dyspnea, nausea, vomiting Review of Systems Review of Systems: All systems reviewed & are unremarkable except as noted in Subjective Physical Exam Physical Exam: Physical Exam: Vitals signs as noted above General Appearance: Obese, no apparent distress Head: normocephalic, Atraumatic Eyes: normal inspection, EOMI Neck: supple, Trachea midline Respiratory/Chest: Normal breath sounds, CTA, No accessory muscle use Cardiovascular: S1, S2, No murmur, tachycardia Abdomen/GI:Soft, Non tender, Bowel sounds present Extremities/Musculoskeletal:normal inspection, no edema Neurologic/Psych:AAOX1, grossly no focal neurological deficits, tries to follow simple commands Skin: normal color, warm Results & Data Results & Data Vital Signs (Past 12 Hours) Vital Signs Temp Pulse Pulse Pulse Resp BP Pulse Ox 06/17/24 15:30 36.7 C 103 H 12 129/73 94 06/17/24 15:29 105 H 06/17/24 15:25 36.8 C 91 H 18 150/90 H 96 06/17/24 13:33 36.9 C 91 H 18 129/73 94 06/17/24 09:44 06/17/24 07:34 106 H 06/17/24 06:56 37 C 99 H 18 157/88 H 97 O2 Del Method 06/17/24 15:30 Room Air 06/17/24 15:29 06/17/24 15:25 Room Air 06/17/24 13:33 Room Air 06/17/24 09:44 Room Air 06/17/24 07:34 06/17/24 06:56 Room Air Laboratory Results Short CBC 06/17/24 Range/Units 05:28 WBC 17.62 H (4.8-10.8) K/ul Hgb 14.1 (12.0-16.0) g/dl Hct 39.4 (37.0-47.0) % Plt Count 239 (130-400) K/uL BMP 02/06/25 05:28 Sodium 133 L Potassium 3.2 L Chloride 101 Carbon Dioxide 23 BUN 17 Creatinine 0.61 Glucose 145 H Calcium 8.3 L
[2024-06-17] MEDS: POTASSIUM CHLORIDE CRTAB 20 MEQ TABCR PO SCH (20:16)
[2024-06-18] MEDS: GADOBUTROL 65ML VIAL IV ONE (00:19)
--- NOTE | 2024-06-18 03:18 | Magnetic Resonance Report ---
EXAM: MR brain wo/w con CLINICAL HISTORY: AMS TECHNIQUE: Multisequential and multiplanar images of the brain were submitted for review with contrast. COMPARISON: none FINDINGS: Suboptimal study due to motion artefacts. Multiple small nodular enhancing lesions of average size 3-5mm seen in left thalamus, right addison, bilateral cerebellar hemisphere, right sutton radiata, reich-white matter junction of left temporal/occipital and left superior parietal lobes. Few blooming focus of 3-5mm size seen in right fronto-parietal lobe reich white matter junction. There is suspicious enhancement in basal cisterns. Mild perIventricular hyperintensity seen. No intracranial hemorrhage, mass effect, midline shift is identified. Midline structures including the pituitary gland, corpus callosum, pineal region are unremarkable. The craniovertebral junction is within normal limits. No calvarial abnormalities are identified. The paranasal sinuses and mastoid air cells are clear. Orbital structures are unremarkable. IMPRESSION: 1. Suboptimal study due to motion artefacts. 2. Multiple small nodular enhancing lesions of average size 3-5mm seen in left thalamus, right addison, bilateral cerebellar hemisphere, right sutton radiata, reich-white matter junction of left temporal/occipital and left superior parietal lobes- Likely Active infective granuloma 3. Few blooming focus of 3-5mm size seen in right fronto-parietal lobe reich white matter junction- likely calcified granuloma. 4. There is suspicious enhancement in basal cisterns 5. Possibility of Multiple active infective granulomas with basal meningitis. Suggested CSF analysis. 6. Repeat study is advised for better interpretation. Electronically signed by Vimal Ojeda 06-18-2024 01:29 AM
[2024-06-18] MEDS: LABETALOL HCL IV 5 MG/ML 20ML IV PRN (07:50)
[2024-06-18 07:56] LABS: Hematocrit (blood only) 43.6 % (37.0-47.0); Hemoglobin 15.2 g/dl (12.0-16.0); Mean Corpuscular Hemoglobin 31.8 pg (25.0-34.0); Mean Corpuscular Hgb Conc 34.9 g/dL (32.0-36.0); Mean Corpuscular Volume 91.2 fL (80.0-100.0); Mean Platelet Volume 8.7 fL (9.4-12.4); Platelet Count 252 K/uL (130-400); RDW Coefficient of Variation 14.2 % (11.5-14.5); RDW Standard Deviation 47.8 fL (36.4-46.3); Red Blood Count 4.78 M/uL (4.20-5.40); White Blood Count 14.13 K/ul (4.8-10.8)
[2024-06-18 08:21] LABS: BUN Creatinine Ratio 40.6 (10-20); Calcium 9.4 mg/dl (8.6-10.3); Creatinine Clr Calc Pharmacy 98.7 ml/min; Potassium 4.1 mmol/L (3.5-5.1)
--- NOTE | 2024-06-18 09:23 | XRay Report ---
KUB HISTORY: constipation COMPARISON STUDY: CT of 06/11/2024 FINDINGS: There is moderate retained stool. No bowel obstruction seen. No gross free air. IMPRESSION: Moderate retained stool. ACT 112: Negative or not required by law. The above report was generated using voice recognition software. It may contain grammatical, syntax o r spelling errors. Electronically signed by: Horace Hernandez M.D. 06/18/2024 9:22 AM
--- NOTE | 2024-06-18 09:57 | Nephrology Progress Note ---
Date of Service June 18, 2024 Assessment & Plan Admission and Anticipated Discharge Date Admission Date: June 15, 2024 Subjective Assessment & Plan (1) Acute hyponatremia: given her underlying diagnosis of metastatic small-cell lung cancer this is a case of SIADH. Even though she has not had much solid food to eat she was still drinking and her blood pressure is high. There is no evidence of volume depletion. Urine osmolarity urine sodium consistent with the SIADH. given this we will continue normal saline at 100 mL/hour. But we also need to lower the urine osmolarity and we will achieve that by using Lasix for free water diuresis. na did get better from 121 to 133 with NS + iv lasix Now: Already Stopped iv lasix now and IVF. K is now normal and since lasix stopped no need of kcl. will stop that Na did go to 135 now. check BMP every 24 hours to monitor serum sodium and K. Will Sign off at this time. Call if new issues (2) Small cell lung cancer, right upper lobe: underlying cause and very common to have hyponatremia in the situation (3) AMS (altered mental status): she is in significant altered mental status. However I doubt this is the result of hyponatremia. Even during her previous admission her sodium was low and not massively different than what we have now. I do not see the need of giving hypertonic saline. Off and On AMS---very abnormal Imaging of head. defer to neuro and Primary team. S--She is awake and eyes open and talking. however confused. Vital signs are fine. lot of urine. na is up a bit and k is low. review of systems as detailed in HPI. Unable to get any history from the patient. Some history obtained from the at bedside Physical Exam Physical Exam: General- unresponsive. did not open eyes and did not answer any questions HEENT- oropharynx dry neck is supple no JVD Lungs- clear to auscultation no wheezing or crackles Heart- regular rhythm; no murmur, no gallop. Abdomen- soft, nontender, no distension Extremities- no edema, Results & Data Vital Signs (Past 12 Hours) Vital Signs Temp Pulse Pulse Pulse Resp BP BP 06/18/24 08:25 88 119/80 06/18/24 08:18 88 119/80 06/18/24 07:50 95 H 184/105 H 06/18/24 07:21 95 H 06/18/24 07:00 36.4 C L 106 H 18 184/105 H 06/18/24 03:41 36.6 C 101 H 18 161/86 H 06/17/24 23:00 36.9 C 93 H 18 144/92 H Pulse Ox O2 Del Method 06/18/24 08:25 06/18/24 08:18 06/18/24 07:50 06/18/24 07:21 06/18/24 07:00 96 Room Air 06/18/24 03:41 95 Room Air 06/17/24 23:00 95 Room Air
--- NOTE | 2024-06-18 14:26 | Communication Note ---
Date of Service: June 18, 2024 Communicated directly with primary/hospitalist team. MRI reviewed, recommend LP to eval for leptomeningeal carcinomatosis and cytology as well as infectious etiology. Continue Keppra, repeat EEG. Consider palliative consultation.
[2024-06-18] MEDS ORDERED: POLYETHYLENE (MIRALAX) 17 GM PACK PO PRN (16:21)
--- NOTE | 2024-06-18 16:22 | Hospitalist Progress Note ---
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 Patient is very confused. Not talking. Hemodynamics are okay. As per ER patient seems to have confusion since 11 AM and worsening throughout the day slowly and brought to the ER. She is able to move all her extremities. Altered mental status likely due to metastatic disease DD: Metabolic encephalopathy secondary to pneumonia, hyponatremia; possible s eizures as well Has leukocytosis and lactic acid of 2.2. Possible sepsis --CT Head:No evidence of acute intracranial abnormality is demonstrated. Chronic microvascular ischemic changes. Cerebral atrophy. --EEG:This is an abnormal routine EEG in a patient with altered mental status due to 1. intermittent generalized epileptiform discharges (GPEDs) suggestive of underlying predisposition for seizure, 2. generalized background slowing suggestive of a nonspecific encephalopathy. 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 There has been interval development of mild to moderate ventricular dilatation. There is periventricular T2 hyperintensity. Although postcontrast images are compromised by motion artifact, there is abnormal enhancement overlying the cerebellar hemispheres as well as the brainstem. Nodular enhancing foci are also present. Given the history of lung cancer, the findings are highly suggestive of leptomeningeal carcinomatosis with hydrocephalus. Neurosurgical consultation is recommended. -- Given her complexity, neurology () and oncology (Dr.Nilesh Faria) recommended transfer to tertiary care facility for further management Patient will likely need neuro surgery evaluation and possible shunt placement --Dr Brittany Hollingsworth accepted the patient at [facility] for further management --Patient/family updated who agrees with the plan Abdominal pain No tenderness, guarding on exam KUB:Moderate retained stool. Started bowel regimen Enema as needed Hepatic lesions on CT: Likely metastatic disease --CT ABD:Scattered, small indeterminate hepatic lesions, are low attenuating, and demonstrating rim enhancement, with benign and malignant etiologies considered, including metastatic disease if there is a history of a primary cancer, versus benign lesion such as hemangioma, FNH, adenoma, etc. Recommended follow-up MRI with IV contrast. -- Needs follow-up with oncology on discharge Hyponatremia Presented with sodium 121 Given metastatic small cell lung cancer, likely SIADH Received IV fluids with Lasix IV Lasix discontinued Appreciate nephrology input Monitor sodium levels closely Continue fluid restriction Sodium 135 today Hypokalemia Hypomagnesemia Monitor and replete Electrolytes as needed Urinary retention Continue Zavala catheter for now Consider voiding trial prior to discharge Will need urology follow-up as outpatient Mild elevation troponin Mostly demand ischemia Denies any chest pain, dyspnea Hypertension Continue amlodipine, Coreg Monitor BP Hypothyroidism Mildly elevated TSH, normal free T4 Continue levothyroxine Rheumatoid arthritis Will hold methotrexate Question of being on prednisone Follow-up as outpatient DVT Px: Lovenox SQ Code Status Full code [facility] [place] Admission and Anticipated Discharge Date Admission Date: June 15, 2024 Subjective Patient is seen and examined at bedside Drowsy this morning during my encounter after receiving pain medications Discussed with patient's family at bedside and over the phone in detail Discussed with neurology, oncology today Mental status about the same as yesterday per staff Patient denied any chest pain, dyspnea, abdominal pain Review of Systems Review of Systems: Other Physical Exam Physical Exam: Physical Exam: Vitals signs as noted above General Appearance: Obese, no apparent distress Head: normocephalic, Atraumatic Eyes: normal inspection, EOMI Neck: supple, Trachea midline Respiratory/Chest: Normal breath sounds, CTA, No accessory muscle use Cardiovascular: S1, S2, No murmur, tachycardia Abdomen/GI:Soft, Non tender, Bowel sounds present Extremities/Musculoskeletal:normal inspection, no edema Neurologic/Psych:AAOX1, grossly no focal neurological deficits, tries to follow simple commands Skin: normal color, warm Results & Data Results & Data Vital Signs (Past 12 Hours) Vital Signs Temp Pulse Pulse Resp BP BP Pulse Ox 06/18/24 15:23 36.7 C 95 H 18 193/118 H 98 06/18/24 14:08 88 06/18/24 10:57 36.4 C L 81 18 162/91 H 96 06/18/24 10:15 06/18/24 08:25 88 119/80 06/18/24 08:18 88 119/80 06/18/24 07:50 95 H 184/105 H 06/18/24 07:21 95 H 06/18/24 07:00 36.4 C L 106 H 18 184/105 H 96 O2 Del Method 06/18/24 15:23 Room Air 06/18/24 14:08 06/18/24 10:57 Room Air 06/18/24 10:15 Room Air 06/18/24 08:25 06/18/24 08:18 06/18/24 07:50 06/18/24 07:21 06/18/24 07:00 Room Air Laboratory Results Short CBC 06/18/24 Range/Units 07:16 WBC 14.13 H (4.8-10.8) K/ul Hgb 15.2 (12.0-16.0) g/dl Hct 43.6 (37.0-47.0) % Plt Count 252 (130-400) K/uL BMP 06/18/24 07:16 Sodium 135 L Potassium 4.1 D Chloride 103 Carbon Dioxide 25 BUN 26 H Creatinine 0.64 Glucose 150 H Calcium 9.4
--- NOTE | 2024-06-18 16:40 | Discharge Summary ---
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 Patient is very confused. Not talking. Hemodynamics are okay. As per ER patient seems to have confusion since 11 AM and worsening throughout the day slowly and brought to the ER. She is able to move all her extremities. Past medical history. As mentioned above Past surgical history. Status post bronchoscopy. Cholecystectomy. Left breast lesion excision. Social history. E-cigarettes/vaping. 1 PPD into 40 years. No alcohol use. No drug use. Family history. Mother had stroke. Hypertension. Diabetes. Father had pacemaker. Hypertension. Diabetes. Brother has diabetes, hypertension. Admission Exam Per Admitting Provider General- Confused. Head- atraumatic Eyes- PERRL. ENT- oropharynx dry Neck- supple, no JVD. Lungs- clear to auscultation no wheezing or crackles Heart- regular rhythm; no murmur, no gallop. Abdomen- normal bowel sounds, soft, nontender, no distension Extremities- no pretibial edema, no erythema seen. 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 Hyponatremia Hypokalemia Hypomagnesemia Urinary retention Discharge Data Allergies Allergy/AdvReac Type Severity Reaction Status Date / Time Penicillins Allergy Severe HIVES/SWELL Verified 06/15/24 05:23 ING clindamycin Allergy Intermediate Hives Verified 06/15/24 05:24 Sulfa (Sulfonamide AdvReac Mild Nausea Verified 06/15/24 05:23 Antibiotics) codeine AdvReac sleepy Verified 12/23/23 10:19 Consultations 06/15/24 02:33 ED Decision to Admit Stat 06/15/24 08:00 Consult Nephrology Routine 06/15/24 12:19 Consult Neurology Routine 06/18/24 14:28 Burn CD for patient Routine Procedures Performed Laboratory Results WBC 14.13 K/ul (4.8-10.8) H 06/18/24 07:16 RBC 4.78 M/uL (4.20-5.40) 06/18/24 07:16 Hgb 15.2 g/dl (12.0-16.0) 06/18/24 07:16 Hct 43.6 % (37.0-47.0) 06/18/24 07:16 MCV 91.2 fL (80.0-100.0) 06/18/24 07:16 MCH 31.8 pg (25.0-34.0) 06/18/24 07:16 MCHC 34.9 g/dL (32.0-36.0) 06/18/24 07:16 RDW Std Deviation 47.8 fL (36.4-46.3) H 06/18/24 07:16 RDW Coeff of Fifi 14.2 % (11.5-14.5) 06/18/24 07:16 Plt Count 252 K/uL (130-400) 06/18/24 07:16 MPV 8.7 fL (9.4-12.4) L 06/18/24 07:16 Immature Gran % (Auto) 0.4 % 06/16/24 03:29 Neut % (Auto) 72.2 % 06/16/24 03:29 Lymph % (Auto) 17.4 % 06/16/24 03:29 Summers % (Auto) 9.3 % 06/16/24 03:29 Eos % (Auto) 0.6 % 06/16/24 03:29 Baso % (Auto) 0.1 % 06/16/24 03:29 Neut # (Auto) 9.28 K/uL (1.40-6.50) H 06/16/24 03:29 Lymph # (Auto) 2.23 K/uL (1.20-3.40) 06/16/24 03:29 Summers # (Auto) 1.19 K/uL (0.11-0.59) H 06/16/24 03:29 Eos # (Auto) 0.08 K/uL (0.00-0.50) 06/16/24 03:29 Baso # (Auto) 0.01 K/uL (0.00-0.20) 06/16/24 03:29 Immature Gran # (Auto) 0.05 K/uL (0.01-0.20) 06/16/24 03:29 VBG pH 7.45 (7.36-7.41) H 06/15/24 06:15 VBG pCO2 33 mmHg (38-50) L 06/15/24 06:15 VBG pO2 29 mmHg 06/15/24 06:15 VBG HCO3 23 mmol/L 06/15/24 06:15 VBG O2 Saturation < 60.0 % 06/15/24 06:15 VBG Base Excess -0.4 mEq/L 06/15/24 06:15 Sodium 135 mmol/L (136-145) L 06/18/24 07:16 Potassium 4.1 mmol/L (3.5-5.1) D 06/18/24 07:16 Chloride 103 mmol/L (98-107) 06/18/24 07:16 Carbon Dioxide 25 mmol/L (21-32) 06/18/24 07:16 Anion Gap 7 (3-11) 06/18/24 07:16 BUN 26 mg/dl (6-23) H 06/18/24 07:16 Creatinine 0.64 mg/dl (0.6-1.2) 06/18/24 07:16 Est Cr Clr Drug Dosing 98.7 ml/min 06/18/24 07:16 eGFR 103.01 06/18/24 07:16 BUN/Creatinine Ratio 40.6 (10-20) H 06/18/24 07:16 Glucose 150 mg/dl (70-99(Fasting)) H 06/18/24 07:16 POC Glucose 172 mg/dl (70-99) H 06/14/24 23:28 Lactate 1.9 mmol/L (0.4-2.0) 06/15/24 12:56 Calcium 9.4 mg/dl (8.6-10.3) 06/18/24 07:16 Magnesium 2.0 mg/dl (1.7-2.4) 06/18/24 07:16 Total Bilirubin 0.7 mg/dl (0.2-1.0) 06/14/24 23:28 AST 33 U/L (13-39) 06/14/24 23:28 ALT 40 U/L (7-52) 06/14/24 23:28 Alkaline Phosphatase 74 U/L (34-104) 06/14/24 23:28 Troponin I High Sens 31.4 pg/ml (0-14) H 06/15/24 19:26 Total Protein 8.0 gm/dl (6.0-8.3) 06/14/24 23: Albumin 4.3 gm/dl (3.4-5.0) 06/14/24 23: Globulin 3.7 gm/dl (2.5-4.0) 06/14/24 23: Albumin/Globulin Ratio 1.2 (0.9-2) 06/14/24 23:28 Procalcitonin 1.11 ng/ml (0-0.5) H 06/17/24 05:28 TSH 5.864 uIu/ml (0.300-4.500) H 06/14/24 23: Free T4 1.18 ng/dl (0.61-1.60) 06/14/24 23:28 Urine Color Yellow 06/15/24 01:15 Urine Appearance Clear (Clear) 06/15/24 01:15 Urine pH 8.0 (4.5-7.5) H 06/15/24 01:15 Ur Specific Elberta 1.014 (1.000-1.030) 06/15/24 01:15 Urine Protein 1+ (Negative) H 06/15/24 01:15 Urine Glucose (UA) 2+ (Negative) H 06/15/24 01:15 Urine Ketones 1+ (Negative) H 06/15/24 01:15 Urine Blood Negative (Negative) 06/15/24 01:15 Urine Nitrite Negative (Negative) 06/15/24 01:15 Urine Bilirubin Negative (Negative) 06/15/24 01:15 Urine Urobilinogen Negative (Negative) 06/15/24 01:15 Ur Leukocyte Esterase Negative (Negative) 06/15/24 01:15 Urine WBC (Auto) 0-5 /hpf (0-5) 06/15/24 01:15 Urine RBC (Auto) 6-10 /hpf (0-2) H 06/15/24 01:15 U Hyaline Cast (Auto) 0-2 /lpf (0-2) 06/15/24 01:15 U Epithel Cells (Auto) 0-2 /hpf (0-2) 06/15/24 01:15 Urine Bacteria (Auto) None Seen (None Seen) 06/15/24 01:15 Urine Osmolality 385 mOsm/kg (500-800) L 06/15/24 01:15 Ur Random Sodium 69 mmol/L 06/15/24 01:15 Nasal Screen MRSA (PCR) Negative (Negative) 06/15/24 05:34 Adenovirus (PCR) Not Detected (NotDetected) 06/14/24 23:42 B. pertussis DNA (PCR) Not Detected (NotDetected) 06/14/24 23:42 B.parapertussis DNA PCR Not Detected (NotDetected) 06/14/24 23:42 C. pneumoniae DNA (PCR) Not Detected (NotDetected) 06/14/24 23:42 Coronavirus OC43 (PCR) Not Detected (NotDetected) 06/14/24 23:42 Coronavirus HKU1 (PCR) Not Detected (NotDetected) 06/14/24 23:42 Coronavirus 229E (PCR) Not Detected (NotDetected) 06/14/24 23:42 SARS-CoV-2 (PCR) Not Detected (NotDetected) 06/14/24 23:42 Coronavirus NL63 (PCR) Not Detected (NotDetected) 06/14/24 23:42 Human Metapneumovir PCR Not Detected (NotDetected) 06/14/24 23:42 Influenza Type A (PCR) Not Detected (NotDetected) 06/14/24 23:42 Influenza Type B (PCR) Not Detected (NotDetected) 06/14/24 23:42 M. pneumoniae (PCR) Not Detected (NotDetected) 06/14/24 23:42 Parainfluenza 1 (PCR) Not Detected (NotDetected) 06/14/24 23:42 Parainfluenza 2 (PCR) Not Detected (NotDetected) 06/14/24 23:42 Parainfluenza 3 (PCR) Not Detected (NotDetected) 06/14/24 23:42 Parainfluenza 4 (PCR) Not Detected (NotDetected) 06/14/24 23:42 RSV (PCR) Not Detected (NotDetected) 06/14/24 23:42 Entero/Rhino (PCR) Not Detected (NotDetected) 06/14/24 23:42 Impressions Chest X-Ray 06/14/24 23:28 EXAM: XR chest 1V portable CLINICAL HISTORY: Weakness. TECHNIQUE: An X-ray image of the chest is obtained using an AP projection. COMPARISON: 06/11/2024. FINDINGS: Pulmonary Parenchyma: Inhomogeneous shadowing right perihilar area. No evidence of consolidation, collapse, or focal opacities. No pulmonary nodules are identified. No evidence of pleural effusion or pleural thickening. Heart and Mediastinum: Heart size and shape are normal. No mediastinal widening or masses. Prominent right hilum. Bony Thorax: The bony thorax appears intact without fractures or deformities. Soft Tissues: Soft tissues overlying the chest wall are unremarkable. The tip of the selvin catheter at slightly below the cavoatrial level, this could be projectional/positional. IMPRESSION: Redemonstration of right hilar opacity, possible congested right hilar vasculature/Infiltration with possible right hilar lymphadenopathy. Suggestive for clinical correlation and CT chest if clinically warranted. Electronically signed by Noé Ortega 06-15-2024 03:[address] 06/14/24 23:29 EXAM: CT head/brain wo con CLINICAL HISTORY: confusion, nonfocal neuro, bleed? TECHNIQUE: Multiple axial images are obtained from the skull base to the vertex without contrast. CT scan was performed according to ALARA (as low as reasonable achievable). COMPARISON: None. FINDINGS: There is cerebral atrophy. No evidence of space occupying lesion, hemorrhage, edema, mass effect, midline shift, extra axial collection, or hydrocephalus is noted. Basal cisterns are symmetric and normal in size and configuration. There are scattered periventricular hypodensities as can be seen with chronic microvascular ischemic changes. The gamino-white matter differentiation is preserved. Visualized paranasal sinuses and mastoid air cells are well aerated. Orbital contents are within normal limits. Bony structures are intact. IMPRESSION: 1. No evidence of acute intracranial abnormality is demonstrated. 2. Chronic microvascular ischemic changes. 3. Cerebral atrophy. Electronically signed by Vimal Ojeda 06-15-2024 01:00 AM Brain MRI 06/17/24 10:37 EXAM: MR brain wo/w con CLINICAL HISTORY: AMS TECHNIQUE: Multisequential and multiplanar images of the brain were submitted for review with contrast. COMPARISON: none FINDINGS: Suboptimal study due to motion artefacts. Multiple small nodular enhancing lesions of average size 3-5mm seen in left thalamus, right addison, bilateral cerebellar hemisphere, right sutton radiata, reich-white matter junction of left temporal/occipital and left superior parietal lobes. Few blooming focus of 3-5mm size seen in right fronto-parietal lobe reich white matter junction. There is suspicious enhancement in basal cisterns. Mild perIventricular hyperintensity seen. No intracranial hemorrhage, mass effect, midline shift is identified. Midline structures including the pituitary gland, corpus callosum, pineal region are unremarkable. The craniovertebral junction is within normal limits. No calvarial abnormalities are identified. The paranasal sinuses and mastoid air cells are clear. Orbital structures are unremarkable. IMPRESSION: 1. Suboptimal study due to motion artefacts. 2. Multiple small nodular enhancing lesions of average size 3-5mm seen in left thalamus, right addison, bilateral cerebellar hemisphere, right sutton radiata, reich-white matter junction of left temporal/occipital and left superior parietal lobes- Likely Active infective granuloma 3. Few blooming focus of 3-5mm size seen in right fronto-parietal lobe reich white matter junction- likely calcified granuloma. 4. There is suspicious enhancement in basal cisterns 5. Possibility of Multiple active infective granulomas with basal meningitis. Suggested CSF analysis. 6. Repeat study is advised for better interpretation. Electronically signed by Vimal Ojeda 06-18-2024 01:29 AM KUB X-Ray 06/18/24 07:00 KUB HISTORY: constipation COMPARISON STUDY: CT of 06/11/2024 FINDINGS: There is moderate retained stool. No bowel obstruction seen. No gross free air. IMPRESSION: Moderate retained stool. ACT 112: Negative or not required by law. The above report was generated using voice recognition software. It may contain grammatical, syntax or spelling errors. Electronically signed by: Horace Hernandez M.D. 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 Patient is very confused. Not talking. H emodynamics are okay. As per ER patient seems to have confusion since 11 AM and worsening throughout the day slowly and brought to the ER. She is able to move all her extremities. Altered mental status likely due to metastatic disease DD: Metabolic encephalopathy secondary to pneumonia, hyponatremia; possible seizures as well Has leukocytosis and lactic acid of 2.2. Possible sepsis --CT Head:No evidence of acute intracranial abnormality is demonstrated. Chronic microvascular ischemic changes. Cerebral atrophy. --EEG:This is an abnormal routine EEG in a patient with altered mental status due to 1. intermittent generalized epileptiform discharges (GPEDs) suggestive of underlying predisposition for seizure, 2. generalized background slowing suggestive of a nonspecific encephalopathy. 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 There has been interval development of mild to moderate ventricular dilatation. There is periventricular T2 hyperintensity. Although postcontrast images are compromised by motion artifact, there is abnormal enhancement overlying the cerebellar hemispheres as well as the brainstem. Nodular enhancing foci are also present. Given the history of lung cancer, the findings are highly suggestive of leptomeningeal carcinomatosis with hydrocephalus. Neurosurgical consultation is recommended. -- Given her complexity, neurology () and oncology (Dr.Nilesh Faria) recommended transfer to tertiary care facility for further management Patient will likely need neuro surgery evaluation and possible shunt placement --Dr Brittany Hollingsworth accepted the patient at [facility] for further management --Patient/family updated who agrees with the plan Abdominal pain No tenderness, guarding on exam KUB:Moderate retained stool. Started bowel regimen Enema as needed Hepatic lesions on CT: Likely metastatic disease --CT ABD:Scattered, small indeterminate hepatic lesions, are low attenuating, and demonstrating rim enhancement, with benign and malignant etiologies considered, including metastatic disease if there is a history of a primary cancer, versus benign lesion such as hemangioma, FNH, adenoma, etc. Recommended follow-up MRI with IV contrast. -- Needs follow-up with oncology on discharge Hyponatremia Presented with sodium 121 Given metastatic small cell lung cancer, likely SIADH Received IV fluids with Lasix IV Lasix discontinued Appreciate nephrology input Monitor sodium levels closely Continue fluid restriction Sodium 135 today Hypokalemia Hypomagnesemia Monitor and replete Electrolytes as needed Urinary retention Continue Zavala catheter for now Consider voiding trial prior to discharge Will need urology follow-up as outpatient Mild elevation troponin Mostly demand ischemia Denies any chest pain, dyspnea Hypertension Continue amlodipine, Coreg Monitor BP Hypothyroidism Mildly elevated TSH, normal free T4 Continue levothyroxine Rheumatoid arthritis Will hold methotrexate Question of being on prednisone Follow-up as outpatient DVT Px: Lovenox SQ Code Status Full code Disposition [facility] Total Time Total Time Spent Total Time Spent (In Minutes): 69 minutes Discharge Plan Discharge Items Patient Disposition: Transfer Acute Care Hospital Reason For Visit: AMS, HYPONATREMIA Discharge Diagnosis: Metastatic lung cancer disease--POA 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 Hyponatremia Hypokalemia Hypomagnesemia Urinary retention Activity: Per Instructions section Exercise/Sports: Wait until after follow-up appointment Non-emergency contact: Primary Care Provider Call non-emergency contact if: you have any medication questions, your symptoms worsen, your pain is concerning for you and you have a fever Follow-up/Referrals: Edel Clay MD [Primary Care Provider] - Diet: Heart Healthy Fluids: 1800ml (7 cups) Diet Texture: Mechanical soft (ground) Lianne Attending Provider Instructions: Follow-up with Dr Brittany Hollingsworth at [facility] for further management Seek immediate medical attention if your symptoms reoccur or worsen Please take all medications as instructed on discharge list below. Please call if you have any questions or problems. 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 Provider Instructions: Date of Service: June 18, 2024 Current Inpatient Medications Amlodipine Besylate (Amlodipine Besylate 5 Mg Tab) 5 mg PO QAM [facility] Stop: 07/15/24 08:59 Last Admin: 06/18/24 07:50 Dose: 5 mg Carvedilol (Carvedilol 6.25 Mg Tab) 6.25 mg PO BIDM [facility] Stop: 07/15/24 07:59 Last Admin: 06/18/24 07:50 Dose: 6.25 mg Docusate Sodium (Docusate Sodium 100 Mg Cap) 100 mg PO BID [facility] Stop: 07/18/24 20:59 Enoxaparin Sodium (Enoxaparin Inj 40 Mg/0.4 Ml Syr) 40 mg SQ Q24H NIDHI Stop: 07/15/24 08:59 Last Admin: 06/18/24 07:51 Dose: 40 mg Folic Acid (Folic Acid 1 Mg Tab) 1 mg PO DAILY NIDHI Stop: 07/15/24 08:59 Last Admin: 06/18/24 07:50 Dose: 1 mg Cefepime HCl (Maxipime 2000mg) 2,000 mg in 20 mls @ 5 mls/min IV Q8H [facility]; Protocol Stop: 06/20/24 13:59 Last Admin: 06/18/24 13:23 Dose: 5 mls/min Doxycycline Hyclate 100 mg/ (Dextrose) 100 mls @ 50 mls/hr IV Q12H [facility] Stop: 06/20/24 17:59 Last Infusion: 06/18/24 07:58 Dose: Infused Thiamine HCl 200 mg/ Sodium (Chloride) 52 mls @ 210 mls/hr IV Q8H [facility] Stop: 07/15/24 08:59 Last Infusion: 06/18/24 09:00 Dose: Infused Labetalol HCl (Labetalol Hcl Iv 5 Mg/Ml 20ml) 10 mg IV Q6H PRN PRN Reason: Hypertension SBP>180orDBP>100 Stop: 07/18/24 07:16 Last Admin: 06/18/24 16:28 Dose: 10 mg Levetiracetam (Levetiracetam 500 Mg/5 Ml Vial) 1,000 mg IV Q12H [facility] Stop: 07/16/24 11:59 Last Admin: 06/18/24 11:46 Dose: 1,000 mg Levothyroxine Sodium (Levothyroxine Sodium 100 Mcg Tablet) 100 mcg PO DAILYBB [facility] Stop: 07/15/24 06:29 Last Admin: 06/18/24 05:31 Dose: 100 mcg Magnesium Oxide (Magnesium Oxide 400 Mg Tab) 400 mg PO BID [facility] Stop: 07/15/24 08:59 Last Admin: 06/18/24 07:53 Dose: 400 mg Morphine Sulfate (Morphine Sulfate 2 Mg/Ml Carp) 2 mg IV Q6H PRN PRN Reason: Mod-Sev Pain (Scale 4-10) Stop: 07/01/24 08:07 Multivitamins (Multivitamin Tab) 1 tab PO DAILY NIDHI Stop: 07/15/24 08:59 Last Admin: 06/18/24 07:51 Dose: 1 tab Nitroglycerin (Nitroglycerin Sl 0.4 Mg/Tab Tab) 0.4 mg SL Q5M PRN PRN Reason: Chest Pain Stop: 07/15/24 05:53 Olanzapine (Olanzapine 10 Mg/2.1 Ml Sdv) 5 mg IM Q8H PRN PRN Reason: Agitation Stop: 07/15/24 19:14 Last Admin: 06/16/24 23:17 Dose: 5 mg Oxycodone/Acetaminophen (Oxycodone/Acetaminophen 5mg/325mg Tab) 1 tab PO Q8H PRN PRN Reason: Mild-Mod Pain (Scale 1-6) Stop: 07/01/24 08:11 Last Admin: 06/18/24 07:50 Dose: 1 tab Polyethylene Glycol (Polyethylene (Miralax) 17 Gm Pack) 17 gm PO DAILY PRN PRN Reason: Constipation Stop: 07/18/24 16:20 Pending Studies at Discharge: Yes Studies:: Blood cultures Stand-Alone Forms: [facility] Skilled Items Patient informed of condition?: Yes DNR: No Discharge Level of Care: Other Communicable Disease: No Discharge Prognosis: Deteriorating Lines: Peripheral IV Urinary Catheter: Yes Medications and DC Order Prescriptions: Continued multivitamin Tablet 1 tab PO DAILY levothyroxine 100 mcg capsule 100 mcg PO DAILY omega-3 fatty acids 1,000 mg capsule 1,000 mg PO DAILY prochlorperazine maleate [Compazine] 10 mg tablet 10 mg PO Q6H PRN (Reason: Nausea) methotrexate sodium 2.5 mg tablet 15 mg PO WK Rx Instructions: MONDAYS folic acid 1 mg tablet 1 mg PO DAILY carvedilol 6.25 mg Tablet 6.25 mg PO BIDM 30 Days Qty: 60 0RF amlodipine [Norvasc] 5 mg Tablet 5 mg PO QAM 30 Days Qty: 30 0RF potassium chloride 20 mEq Tablet,Er Particles/Crystals 20 meq PO BID 30 Days Qty: 60 0RF magnesium oxide 400 mg (241.3 mg magnesium) Tablet 400 mg PO BID Qty: 60 0RF Discontinued doxycycline hyclate 100 mg Capsule 100 mg PO BID 5 Days Qty: 10 0RF cefdinir 300 mg capsule 300 mg PO BID 5 Days Qty: 10 0RF Discharge Orders: Discharge Order (Routine); Ordered 06/18/24 Ordered By: Gary Soni Admission Data Admit Date/Time: 06/15/24 05:22 Attending Provider: Gary Soni Admit Provider: Dexter Dallas Primary Care Provider: Edel Clay Other Providers: Dexter Dallas; Rakesh Grier; Leif Sandoval; [facility]
[2024-06-18] MEDS: MoRPHine SULFATE 2 MG/ML CARP IV PRN (19:39)
[2024-06-18] MEDS: DOCUSATE SODIUM 100 MG CAP PO SCH (19:44)
[2024-06-18] MEDS ORDERED: POTASSIUM CHLORIDE CRTAB 20 MEQ TABCR PO SCH (21:00)
--- NOTE | 2024-06-18 22:23 | Communication Note ---
Date of Service: June 18, 2024 Notified by transfer center of unavailability of transport today. C transport to be attempted tomorrow a.m. as per communication. Cancel discharge order for now.
[2024-06-18] MEDS: METOPROLOL TARTRATE 1 MG/ML VIAL IV STA (23:28)
[2024-06-18] MEDS: ACETAMINOPHEN 1,000 MG/100 ML VIAL IV STA (23:29)
[2024-06-19] MEDS: hydrALAZINE HCL 20 MG/ML VIAL IV STA (00:56)
[2024-06-19] MEDS: KETOROLAC TROMETHAMINE 15 MG/ML VIAL IV ONE (00:56)
[2024-06-19] MEDS: OLANZapine 10 MG/2.1 ML SDV IM STA (00:57)
[2024-06-19] MEDS: OPTIRAY 320 100ml IV ONE (01:53)
--- NOTE | 2024-06-19 03:05 | CT Scan Report ---
EXAM: CT abd pelvis IV con only CLINICAL HISTORY: worsening abd pain TECHNIQUE: Multiple contiguous axial images were obtained from the level of diaphragm to the pubis symphysis. This study was acquired after the IV administration of iodinated contrast material, given the patient's indications for the examination. If IV contrast material had not been administered, the likelihood of detecting abnormalities relevant to the patient's condition would have been substantially decreased. Coronal and sagittal reformatted images were generated and reviewed to improve anatomic localization and optimize lesion detection. CT scan was performed according to ALARA (as low as reasonably achievable). COMPARISON: 11 June 2024. FINDINGS: Stable mild cardiomegaly detected. ABDOMEN/PELVIS: Stable mild diffuse fatty infiltration of the liver. Stable hypodense nodule is noted involving the right lobe of liver, possible simple cyst. Stable enhancement is noted involving the subcapsular aspect of segment of liver. Gallbladder is not visualized, cholecystectomy status. Urinary bladder is collapsed with Zavala's bulb in situ. Rest of the findings are unchanged compared to the previous CT scan. The liver is normal in size and attenuation. There is no intra or extrahepatic biliary ductal dilatation. Hepatic vasculature is patent. The spleen is unremarkable. The pancreas is unremarkable. Both adrenal glands are unremarkable. The kidneys are normal in size and attenuation. There is no hydronephrosis. No perinephric fat stranding is seen. No renal calculi or renal masses are identified. The ureters are normal in caliber and no ureteral calculi are seen. No evidence of focal or diffuse bowel wall thickening or evidence of bowel obstruction is seen. The appendix appears normal. No adenopathy or fluid collections are seen. The aorta is normal in caliber. No aggressive appearing osseous lesions are identified. IMPRESSION: 1. Stable mild diffuse fatty infiltration of the liver. 2. Stable hypodense nodule is noted involving the right lobe of liver, possible simple cyst. 3. Stable enhancement is noted involving the subcapsular aspect of segment of liver, possibility of hemangiomas . (suboptimally evaluated due to hepatic steatosis - Correlation with ultrasound / triphasic MRI scan is suggested) 4. Stable omental fat containing umbilical hernia. Rest of the findings are unchanged compared to the previous CT scan. No significant bony findings is detected. Electronically signed by Vimal Ojeda 06-19-2024 03:05 AM
[2024-06-19] MEDS: bisacodyL 10 MG SUPP PR STA (05:26)
[2024-06-19 06:46] LABS: Hematocrit (blood only) 40.2 % (37.0-47.0); Hemoglobin 13.9 g/dl (12.0-16.0); Mean Corpuscular Hemoglobin 31.7 pg (25.0-34.0); Mean Corpuscular Hgb Conc 34.6 g/dL (32.0-36.0); Mean Corpuscular Volume 91.6 fL (80.0-100.0); Mean Platelet Volume 8.4 fL (9.4-12.4); Platelet Count 264 K/uL (130-400); RDW Coefficient of Variation 14.3 % (11.5-14.5); Red Blood Count 4.39 M/uL (4.20-5.40); White Blood Count 13.25 K/ul (4.8-10.8)
[2024-06-19 07:08] VITALS: BP 160/108; PULSE 105; RESP 18; TEMP 98.1; O2SAT 97
[2024-06-19 07:14] LABS: BUN Creatinine Ratio 39.3 (10-20); Calcium 9.4 mg/dl (8.6-10.3); Creatinine Clr Calc Pharmacy 102.5 ml/min; Potassium 4.6 mmol/L (3.5-5.1)
[2024-06-19] MEDS ORDERED: carvediloL 12.5 MG TAB PO SCH (08:10)
--- NOTE | 2024-06-19 08:47 | Hospitalist Progress Note ---
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 Patient is very confused. Not talking. Hemodynamics are okay. As per ER patient seems to have confusion since 11 AM and worsening throughout the day slowly and brought to the ER. She is able to move all her extremities. Altered mental status likely due to metastatic disease DD: Metabolic encephalopathy secondary to pneumonia, hyponatremia; possible s eizures as well Has leukocytosis and lactic acid of 2.2. Possible sepsis --CT Head:No evidence of acute intracranial abnormality is demonstrated. Chronic microvascular ischemic changes. Cerebral atrophy. --EEG:This is an abnormal routine EEG in a patient with altered mental status due to 1. intermittent generalized epileptiform discharges (GPEDs) suggestive of underlying predisposition for seizure, 2. generalized background slowing suggestive of a nonspecific encephalopathy. 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 There has been interval development of mild to moderate ventricular dilatation. There is periventricular T2 hyperintensity. Although postcontrast images are compromised by motion artifact, there is abnormal enhancement overlying the cerebellar hemispheres as well as the brainstem. Nodular enhancing foci are also present. Given the history of lung cancer, the findings are highly suggestive of leptomeningeal carcinomatosis with hydrocephalus. Neurosurgical consultation is recommended. -- Given her complexity, neurology () and oncology (Dr.Nilesh Faria) recommended transfer to tertiary care facility for further management Patient will likely need neuro surgery evaluation and possible shunt placement --Dr Brittany Hollingsworth accepted the patient at [facility] for further management --Patient/family updated who agrees with the plan Abdominal pain No tenderness, guarding on exam KUB:Moderate retained stool. Started bowel regimen Enema as needed Hepatic lesions on CT: Likely metastatic disease --CT ABD:Scattered, small indeterminate hepatic lesions, are low attenuating, and demonstrating rim enhancement, with benign and malignant etiologies considered, including metastatic disease if there is a history of a primary cancer, versus benign lesion such as hemangioma, FNH, adenoma, etc. Recommended follow-up MRI with IV contrast. -- Needs follow-up with oncology on discharge Hyponatremia Presented with sodium 121 Given metastatic small cell lung cancer, likely SIADH Received IV fluids with Lasix IV Lasix discontinued Appreciate nephrology input Monitor sodium levels closely Continue fluid restriction Sodium 135 today Hypokalemia Hypomagnesemia Monitor and replete Electrolytes as needed Urinary retention Continue Zavala catheter for now Consider voiding trial prior to discharge Will need urology follow-up as outpatient Mild elevation troponin Mostly demand ischemia Denies any chest pain, dyspnea Hypertension Continue amlodipine, Coreg Monitor BP Hypothyroidism Mildly elevated TSH, normal free T4 Continue levothyroxine Rheumatoid arthritis Will hold methotrexate Question of being on prednisone Follow-up as outpatient DVT Px: Lovenox SQ Code Status Full code Disposition [facility] Admission and Anticipated Discharge Date Admission Date: June 15, 2024 Physical Exam Physical Exam: Physical Exam: Vitals signs as noted above General Appearance: Obese, no apparent distress Head: normocephalic, Atraumatic Eyes: normal inspection, EOMI Neck: supple, Trachea midline Respiratory/Chest: Normal breath sounds, CTA, No accessory muscle use Cardiovascular: S1, S2, No murmur, tachycardia Abdomen/GI:Soft, Non tender, Bowel sounds present Extremities/Musculoskeletal:normal inspection, no edema Neurologic/Psych:AAOX1, grossly no focal neurological deficits, tries to follow simple commands Skin: normal color, warm Results & Data Results & Data Vital Signs (Past 12 Hours) Vital Signs Temp Pulse Pulse Resp BP BP BP 06/19/24 07:06 36.7 C 105 H 18 160/108 H 06/19/24 06:00 06/19/24 05:31 36.5 C 100 H 16 180/99 H 06/19/24 00:18 93 H 180/92 H 06/18/24 23:39 93 H 06/18/24 23:28 99 H 179/99 H 06/18/24 23:15 36.4 C L 106 H 18 179/99 H 06/18/24 21:26 Pulse Ox O2 Del Method O2 Del Method 06/19/24 07:06 97 Room Air 06/19/24 06:00 Room Air 06/19/24 05:31 95 Room Air 06/19/24 00:18 06/18/24 23:39 06/18/24 23:28 06/18/24 23:15 96 Room Air 06/18/24 21:26 Room Air
--- NOTE | 2024-06-19 11:06 | Communication Note ---
Date of Service: June 19, 2024 Patient got discharged prior to my encounter with the patient this morning. Chart reviewed. Discharge process got delayed due to transportation issues.
== END 2024-06-19 09:46 | disposition short-term general hospital (02) | DRG 871 ==
LOC: ED 23:13 → SUATTDRO 06-15 05:22 → EDINP 06-15 05:22 → 2E 06-15 05:55